=== PATIENT | male | born 1940 | race Caucasian/White ===

== ENCOUNTER 2020-06-02 10:22 | Outpatient (REF) | payer MEDICARE, SELFPAY ==
[2020-06-02 11:44] LABS: Cholesterol 135 mg/dL; HDL Cholesterol 39 mg/dL; LDL Cholesterol Calculated 82 mg/dl; Triglycerides 73 mg/dL
== END 2020-06-02 10:23 | disposition home or self-care (01) ==
LOC: HO.LAB 10:22
PROVIDERS: PCP Internal Medicine Endocrinology, Diabetes & Metabolism; Visit Provider Internal Medicine Endocrinology, Diabetes & Metabolism
DX: E05.90 Thyrotoxicosis, unspecified without thyrotoxic crisis or storm (principal)
CPT/HCPCS: 36415; 80061

== ENCOUNTER 2020-08-24 11:06 | Emergency (ER) | payer OTHER, SELFPAY ==
[2020-08-24] VITALS (11 sets, daily range): BP systolic 139–182; BP diastolic 66–82; PULSE 57–70; RESP 16–18; TEMP 36.6; O2SAT 95–98; BMI 34.4
--- NOTE | ~2020-08-24 | XR_ITS ---
EXAMINATION: XR CHEST CLINICAL INFORMATION: Dizziness, weakness COMPARISON: Portable chest 01/25/2016. TECHNIQUE: Portable upright AP view of the chest was obtained. FINDINGS: There is fine linear scar left lateral base and old appearing faint nodular density versus pleural plaque right fifth anterior intercostal space both similar to prior portable chest 01/25/2016. There is no lobar segmental airspace lesion or effusion. The cardiac, hilar, and mediastinal contours are unremarkable. There is mild dextrocurvature and degenerative changes thoracic spine. XR/XR chest 1V IMPRESSION: No acute intrathoracic disease.
--- NOTE | ~2020-08-24 | CT_ITS ---
EXAMINATION: CT HEAD WITHOUT CONTRAST CLINICAL INFORMATION: Dizziness COMPARISON: CT head 01/25/2016 TECHNIQUE: Contiguous axial imaging was performed from the skull base to vertex without intravenous administration of contrast. Coronal and sagittal reformatted images are performed at the CT scanner This CT examination was performed using dose optimization techniques as appropriate, variously including the following: *Automated exposure control *Adjustment of mA and/or kV according to patient size (this includes techniques or standardized protocols for targeted exams where dose is matched to indication/reason for exam; i.e. extremities or head) *Use of iterative reconstruction technique DLP: 711 mGy-cm FINDINGS: There is no evidence of acute intracranial hemorrhage or territorial infarction. No abnormal mass effect or midline shift is seen. Freire to white matter differentiation is well preserved. No extra-axial fluid collections are identified. There is atrophy with prominence of the ventricles and the sulci and hypodensity of the periventricular white matter due to chronic small vessel ischemic disease. There are vascular calcifications of the internal carotid arteries bilaterally. The osseous structures and soft tissues are normal. The mastoid air cells and visualized portions of the paranasal sinuses are well aerated. CT/CT head/brain wo con IMPRESSION: No acute intracranial pathology.
--- NOTE | ~2020-08-24 | MR_ITS ---
MRI OF THE BRAIN WITHOUT IV CONTRAST INDICATION: Dizziness. COMPARISON: Head CT performed earlier the same day. TECHNIQUE: Multiplanar multisequence MR imaging of the brain was obtained without IV contrast. FINDINGS: There is no hydrocephalus, extra-axial surface collection, or herniation. There is global cerebral volume loss and there is advanced chronic microangiopathy. The major flow voids at the skull base are preserved. A 7 mm broad-based vascular excrescence projecting anteriorly from the left anterior cerebral artery/anterior communicating artery junction is most suggestive of an aneurysm that would be better assessed with a CTA or MRA of the head. There is no acute infarct on diffusion-weighted imaging. There is no intracranial hemorrhage on the gradient recalled echo acquisition. The midline structures are normal. The cerebellar tonsils are normally positioned. The cerebellum and brainstem are normal. The craniocervical junction is normal. Osseous marrow signal intensity is homogenous. The visualized soft tissues are unremarkable. MR/MR head/brain wo con IMPRESSION: - A 7 mm broad-based vascular excrescence projecting anteriorly from the left anterior cerebral artery/anterior communicating artery junction is most suggestive of an aneurysm that would be better assessed with a CTA or MRA of the head. - There are no acute intracranial findings. No acute infarcts. - Global cerebral volume loss and advanced chronic microangiopathy.
[2020-08-24 12:29] LABS: MANUAL DIFF FLAG NO
[2020-08-24 12:30] LABS: Basophils Percent Auto 0.2 % (0-2); Eosinophils Percent Auto 0.4 % (0-4); Hematocrit 43.1 % (42-52); Hemoglobin 15.2 g/dl (14.0-18.0); Imm Gran Abs Auto 0.04 X10*3/uL (0.00-0.03); Imm Gran Pct Auto 0.4 % (0.0-0.4); Lymphocytes Absolute Auto 0.8 X10*3/uL (1.2-4.9); Lymphocytes Percent Auto 9.1 % (20-40); Mean Corpuscular HGB Conc 35.3 g/dl (31.0-36.0); Mean Corpuscular Hemoglobin 32.3 pg (27.0-33.0); Mean Corpuscular Volume 91.5 fL (80-98); Mean Platelet Volume 11.1 fL (9.4-12.4); Monocytes Absolute Auto 0.7 X10*3/uL (0.1-1.2); Monocytes Percent Auto 8.2 % (2-11); Neutrophils Absolute Auto 7.3 X10*3/uL (2.0-8.3); Neutrophils Percent Auto 81.7 % (45-73); Platelet Count 181 X10*3/uL (160-400); Red Blood Count 4.71 X10*6/uL (4.60-5.80); Red Cell Distribution Width 14.4 % (11.0-16.0); White Blood Count 8.9 X10*3/uL (4.8-10.8)
[2020-08-24 13:03] LABS: Anion Gap 14 (12-20); Blood Urea Nitrogen 14 mg/dL (9-16); Calcium 9.2 mg/dL (8.4-10.2); Carbon Dioxide 25 mmol/L (22-29); Chloride 105 mmol/L (96-108); Creatinine Clr Calc Pharmacy 72.8; Estimated Glomerular Filt Rate > 60; Glucose Random 112 mg/dL (60-115); Potassium 3.6 mmol/L (3.3-5.1); Sodium 140 mmol/L (135-145)
[2020-08-24 13:08] LABS: Troponin-I High Sensitivity 10.1 ng/L (<3.5-35.0)
--- NOTE | 2020-08-24 15:27 | ECG_ITS ---
Test Reason : DIZZINESS Blood Pressure : / mmHG Vent. Rate : 064 BPM Atrial Rate : 064 BPM P-R Int : 176 ms QRS Dur : 090 ms QT Int : 484 ms P-R-T Axes : 049 -21 013 degrees QTc Int : 499 ms Sinus rhythm with occasional Premature ventricular complexes Nonspecific ST abnormality Prolonged QT Abnormal ECG When compared with ECG of 25-JAN-2016 00:37, No significant change was found Referred By: Michael Pascal Electronically Signed By:HOLGER HALE
--- NOTE | 2020-08-24 15:28 | PC.NURSE ---
NO NEURO DEFICITS NOTED.
--- NOTE | 2020-08-24 15:32 | ED_ITS ---
HPI - Dizziness General Chief Complaint: Dizziness Stated Complaint: dizziness Time Seen by Provider: 08/24/20 15:18 Source: patient Mode of arrival: wheelchair Limitations: no limitations History of Present Illness HPI Narrative: 80-year-old male with prior medical history that is significant for Graves disease, hypertension and vertigo he presents via triage in a wheelchair with family with report of dizziness for the past 5 days states he has had similar episodes several years back for which she was seen here meclizine helped however this time he has been taking [id number] equivalent meclizine and his dizziness has been a progressively becoming worse over the past 5 days. States there is no chest pain, shortness of breath, headache, neck pain, weight loss or gain, no leg swelling. MD elicited complaint: dizziness Onset (ago): day(s) (5) Timing: gradual onset Severity: severe Description: sense of movement and lightheadedness Context: anxiety History of similar symptoms: Yes Exacerbating factors: nothing Relieving factors: nothing Associated symptoms: denies other symptoms Related Data Previous Rx's Medication Instructions Recorded meclizine 25 mg PO DAILY PRN #14 tab 08/24/20 Allergies Allergy/AdvReac Type Severity Reaction Status Date / Time No Known Allergies Allergy Unverified 01/30/20 17:11 Review of Systems Review of Systems: Constitutional: No Weight loss, No Fever, No Chills, No Night Sweats, No Fatigue, No Malaise ENT/Mouth: No Hearing loss, No Ear Pain, No Nasal Congestion, No Sinus Pain, No Hoarseness, No sore throat, No Rhinorrhea, No Swallowing Difficulty Eyes: No Eye Pain, No Swelling, No Redness, No Foreign Body, No Discharge, No Vision Changes Cardiovascular: No Chest Pain, No SOB, No Dyspnea on Exertion, No Orthopnea, No Edema, No Palpitations Respiratory: No Cough, No Sputum, No Wheezing, No Smoke Exposure, No Dyspnea Gastrointestinal: No Nausea, No Vomiting, No Diarrhea, No Constipation, No abdominal Pain, No Hematochezia, No Melena Genitourinary: No Dysuria, No Urinary Frequency, No Hematuria, No Urinary Incontinence, No Urgency, No Flank Pain, No Urinary Flow Changes, No Hesitancy Musculoskeletal: No joint pain, No Myalgias, No Joint Swelling Skin: No Skin Lesions, No rash Neuro: No Weakness, No Numbness, No Paresthesias, No Loss of Consciousness, + Dizziness, No Headache Psych: + Anxiety/Panic, No Depression, No SI/HI/AH/VH, No Social Issues Heme/Lymph: No Bruising, No Bleeding,No Lymphadenopathy Endocrine: No Polyuria, No Polydipsia, No Temperature Intolerance Yes all other systems are reviewed and are negative ENT: Reports Normal hearing present Neurologic: Reports Normal hearing present [facility] Past Medical History Medical History (Updated 08/24/20 @ 22:39 by Michael Pascal NP) Dizziness Graves disease Hypertension Vertigo Social History Social History Alcohol intake: former Smoking Status: Former smoker Use of substances other than those prescribed or required for medical reasons: No Advance Directives: No Advance Directives Information Provided: Yes Physical Exam Vital Signs: Vital Signs: Last Vital Signs Temp 98 F 08/24/20 12:01 Pulse 65 08/24/20 22:24 Resp 18 08/24/20 22:24 BP 156/79 H 08/24/20 22:24 Pulse Ox 96 08/24/20 22:12 Body Mass Index 34.4 Reviewed Const: General: cooperative and healthy appearing; No acute distress or intoxicated appearing Nutritional Appearance: average body habitus Orientation/consciousness: patient oriented x3 HENMT: Head: Yes normal to inspection Ears: hearing grossly normal b ilaterally Eyes: General: appearance normal, both eyes and all related structures Visual Wang: normal visual wang by confrontation Pupils: Equal, round and reactive pupils present Neck: Neck: Yes normal visual inspection, Yes no meningeal signs, No positive Brudzinski's sign, No positive Kernig's sign and No tender Thyroid: Thyroid normal Chest: Chest palpation & inspection: normal inspection of the chest Resp: Effort & Inspection: normal respiratory effort Auscultation: clear to auscultation bilaterally Cardio: Jugular venous distension: no JVD Rhythm: regular rhythm Heart sounds: S1 normal heart sound present and S2 normal heart sound present GI: Inspection: Yes normal to inspection Palpation (GI): Soft to palpation Percussion: Yes normal to percussion Auscultation: normal bowel sounds : General: Yes no CVA tenderness Back/Spine/Pelvis: Back: no CVA tenderness Skin: General skin exam: no rashes or lesions noted Neuro: General: patient oriented x3, moves all extremities, Normal light touch and pain sensation, no meningeal signs, no focal motor deficits, CN's II-XI intact bilaterally, normal sensation to monofilament, decrease sensation to monofilament, absent sensation to monofilament, deep tendon reflexes 2+ bilaterally and Alonzo Hallpike (Negative) Cranial nerves: Yes CN's II-XII intact bilaterally, Yes Facial sensation intact/muscles of mastication intact, Yes Intact sense of smell present, Yes Equal, round and reactive pupils present, Yes Normal accommodation reflex present, Yes Bilaterally intact EOM present, Yes Nystagmus not present, Yes Normal facial strength present, Yes Midline tongue present, Yes Normal gag reflex present, Yes Symmetric palate elevation present, Yes Normal hearing present, Yes Ability to bilaterally rotate head present and Yes Ability to bilaterally elevate shoulders present Cognition (Neuro): normal cognition Speech: Other speech findings present (Neuro) (Speech normal) Gait exam (Neuro): Normal gait present Motor exam (neuro): 5/5 motor strength present throughout Sensory Exam: Normal double simultaneous stimulation for sensation Extrem: General: Yes normal to inspection Course Reevaluation(s) Reevaluation #1: NIH score 0 Out of tPA window Labs, head CT, orthostatic vital signs Has tried couple doses of meclizine without help does feel anxious he takes lorazepam b.i.d. and has done so for past 6 months after his and ever since then he has been more anxious. Will give him 0.5 of lorazepam and re- evaluate. Reevaluation #2: Declined meclizine as he reports and daughter reports that the read the side effects and caused your attention given his underlying history of prostate. Did request Ativan which was initially given and felt better with this no dizziness at this time. She is out of bed and ambulatory steady gait. CT no findings however given the profound dizziness prior to arrival MRI of the brain was done and showed A 7 mm broad-based vascular excrescence projecting anteriorly from the left anterior cerebral artery/anterior communicating artery junction is most suggestive of an aneurysm that would be better assessed with a CTA or MRA of the head. Case discussed with hospitalist for admission given no intervention neurology to defer I subsequently called [facility] spoke to transfer line and Interventional Neurology Dr. Wadsworth who reviewed the MRI with me and states that this is incidental findings of the aneurysm that this does not require any immediate intervention or transfer that the primary focus should be on the vertigo treatment and have patient follow-up in the office and call the office at [phone]. Patient has remained stable remains without dizziness. Findings were reviewed of the MRI with patient and daughter I did give him pictures and shows the size of the MRI and the importance for the need for follow-up. Given the dizziness I did also offer evaluation by case management and PT for possible STI are however daughter feels that she can follow up better with vestibular therapy doctor on outpatient basis as she has been to 1 before and there is 1 in [place] that she would like to go to. Additionally she will call Dr. Wadsworth tomorrow morning and follow up with the office for further evaluation of the aneurysm and monitoring. He was able to get out of bed and walk to the bathroom without complaints walks with steady gait. Consultations Consultation #1: Hospitalist services [facility] Dr. Love Consultation #2: Case discussed with for [place] [facility] [place] Consultation #3: Education of the findings of the 7 mm aneurysm to the patient and daughter and the importance of monitoring blood pressure closely at home taking his blood pressure medication and close follow-up neurology. MDM - Dizziness Differential Diagnosis Differential diagnosis: Likely benign paroxysmal positional vertigo, orthostatic hypotension, vertebral basilar insufficiency, cerebrovascular accident and transient cerebral ischemia; Unlikely adverse reaction to drug and acute vestibular neuronitis Medical Records Attestation: I reviewed the patient's medical records. Lab Data Attestation: I reviewed the patient's lab results. Result diagrams: 08/24/20 12:17 08/24/20 12:17 Labs: Lab Results 08/24/20 08/24/20 08/24/20 Range/Units 12:17 12:17 12:17 WBC 8.9 (4.8-10.8) X10*3/uL RBC 4.71 (4.60-5.80) X10*6/uL Hgb 15.2 (14.0-18.0) g/dl Hct 43.1 (42-52) % MCV 91.5 (80-98) fL MCH 32.3 (27.0-33.0) pg MCHC 35.3 (31.0-36.0) g/dl RDW 14.4 (11.0-16.0) % Plt Count 181 (160-400) X10*3/uL MPV 11.1 (9.4-12.4) fL Immature Gran % (Auto) 0.4 (0.0-0.4) % Neut % (Auto) 81.7 H (45-73) % Lymph % (Auto) 9.1 L (20-40) % Crosby % (Auto) 8.2 (2-11) % Eos % (Auto) 0.4 (0-4) % Baso % (Auto) 0.2 (0-2) % Lymph # (Auto) 0.8 L (1.2-4.9) X10*3/uL Crosby # (Auto) 0.7 (0.1-1.2) X10*3/uL Eos # (Auto) 0.0 (0.0-0.4) X10*3/uL Baso # (Auto) 0.0 (0.0-0.2) X10*3/uL Abs Immat Gran (auto) 0.04 H (0.00-0.03) X10*3/uL Absolute Neuts (auto) 7.3 (2.0-8.3) X10*3/uL Absolute Nucleated RBC 0.000 (0.0-0.012) X10*3/uL Nucleated RBC % (auto) 0.0 (0.0-0.2) /100WBC PT (10.8-13.0) SEC INR (0.9-1.1) APTT (24.1-38.0) SEC Hold Blue Top Sodium 140 (135-145) mmol/L Potassium 3.6 (3.3-5.1) mmol/L Chloride 105 (96-108) mmol/L Carbon Dioxide 25 (22-29) mmol/L Anion Gap 14 (12-20) BUN 14 (9-16) mg/dL Creatinine 0.88 (0.5-1.4) mg/dL Estim Creat Clear Calc 72.8 Estimated GFR > 60 Random Glucose 112 (60-115) mg/dL Calcium 9.2 (8.4-10.2) mg/dL Magnesium 2.2 (1.6-2.6) mg/dL Total Bilirubin 1.1 H (0.0-1.0) mg/dL Direct Bilirubin 0.4 (0.0-0.5) mg/dL AST 11 (5-37) U/L ALT 12 (0-40) U/L Alkaline Phosphatase 83 (39-117) U/L Troponin I High Sens 10.1 (<3.5-35.0) ng/L B-Natriuretic Peptide 322 H (<100) pg/mL Total Protein 6.0 L (6.5-8.0) g/dL Albumin 4.2 (3.5-5.0) g/dL TSH 0.30 L (0.32-4.0) uIU/mL Free T4 1.10 (0.71-1.85) ng/dL Urine Color Urine Appearance Urine pH (5.0-8.0) Ur Specific [place] (1.005-1.025) Urine Protein (NEG-TRACE) MG/DL Urine Glucose (UA) (NEG) MG/DL Urine Ketones (NEG) MG/DL Urine Blood (NEG) Urine Nitrite (NEG) Ur Leukocyte Esterase (NEG) Urine RBC (0) /HPF Urine WBC (0-4) /HPF Ur Squamous Epith Cells /LPF Urine Bacteria /LPF COVID-19 (ANKUR) (Negative) COVID-19 Clin Com 08/24/20 08/24/20 08/24/20 Range/Units 12:17 12:17 16:00 WBC (4.8-10.8) X10*3/uL RBC (4.60-5.80) X10*6/uL Hgb (14.0-18.0) g/dl Hct (42-52) % MCV (80-98) fL MCH (27.0-33.0) pg MCHC (31.0-36.0) g/dl RDW (11.0-16.0) % Plt Count (160-400) X10*3/uL MPV (9.4-12.4) fL Immature Gran % (Auto) (0.0-0.4) % Neut % (Auto) (45-73) % Lymph % (Auto) (20-40) % Crosby % (Auto) (2-11) % Eos % (Auto) (0-4) % Baso % (Auto) (0-2) % Lymph # (Auto) (1.2-4.9) X10*3/uL Crosby # (Auto) (0.1-1.2) X10*3/uL Eos # (Auto) (0.0-0.4) X10*3/uL Baso # (Auto) (0.0-0.2) X10*3/uL Abs Immat Gran (auto) (0.00-0.03) X10*3/uL Absolute Neuts (auto) (2.0-8.3) X10*3/uL Absolute Nucleated RBC (0.0-0.012) X10*3/uL Nucleated RBC % (auto) (0.0-0.2) /100WBC PT 12.3 (10.8-13.0) SEC INR 1.0 (0.9-1.1) APTT 35.1 (24.1-38.0) SEC Hold Blue Top SEE NOTE Sodium (135-145) mmol/L Potassium (3.3-5.1) mmol/L Chloride (96-108) mmol/L Carbon Dioxide (22-29) mmol/L Anion Gap (12-20) BUN (9-16) mg/dL Creatinine (0.5-1.4) mg/dL Estim Creat Clear Calc Estimated GFR Random Glucose (60-115) mg/dL Calcium (8.4-10.2) mg/dL Magnesium (1.6-2.6) mg/dL Total Bilirubin (0.0-1.0) mg/dL Direct Bilirubin (0.0-0.5) mg/dL AST (5-37) U/L ALT (0-40) U/L Alkaline Phosphatase (39-117) U/L Troponin I High Sens (<3.5-35.0) ng/L B-Natriuretic Peptide Cancelled (<100) pg/mL Total Protein (6.5-8.0) g/dL Albumin (3.5-5.0) g/dL TSH (0.32-4.0) uIU/mL Free T4 (0.71-1.85) ng/dL Urine Color Urine Appearance Urine pH (5.0-8.0) Ur Specific [place] (1.005-1.025) Urine Protein (NEG-TRACE) MG/DL Urine Glucose (UA) (NEG) MG/DL Urine Ketones (NEG) MG/DL Urine Blood (NEG) Urine Nitrite (NEG) Ur Leukocyte Esterase (NEG) Urine RBC (0) /HPF Urine WBC (0-4) /HPF Ur Squamous Epith Cells /LPF Urine Bacteria /LPF COVID-19 (ANKUR) Negative (Negative) COVID-19 Clin Com See Note 08/24/20 08/24/20 Range/Units 16:00 20:26 WBC (4.8-10.8) X10*3/uL RBC (4.60-5.80) X10*6/uL Hgb (14.0-18.0) g/dl Hct (42-52) % MCV (80-98) fL MCH (27.0-33.0) pg MCHC (31.0-36.0) g/dl RDW (11.0-16.0) % Plt Count (160-400) X10*3/uL MPV (9.4-12.4) fL Immature Gran % (Auto) (0.0-0.4) % Neut % (Auto) (45-73) % Lymph % (Auto) (20-40) % Crosby % (Auto) (2-11) % Eos % (Auto) (0-4) % Baso % (Auto) (0-2) % Lymph # (Auto) (1.2-4.9) X10*3/uL Crosby # (Auto) (0.1-1.2) X10*3/uL Eos # (Auto) (0.0-0.4) X10*3/uL Baso # (Auto) (0.0-0.2) X10*3/uL Abs Immat Gran (auto) (0.00-0.03) X10*3/uL Absolute Neuts (auto) (2.0-8.3) X10*3/uL Absolute Nucleated RBC (0.0-0.012) X10*3/uL Nucleated RBC % (auto) (0.0-0.2) /100WBC PT (10.8-13.0) SEC INR (0.9-1.1) APTT (24.1-38.0) SEC Hold Blue Top Sodium (135-145) mmol/L Potassium (3.3-5.1) mmol/L Chloride (96-108) mmol/L Carbon Dioxide (22-29) mmol/L Anion Gap (12-20) BUN (9-16) mg/dL Creatinine (0.5-1.4) mg/dL Estim Creat Clear Calc Estimated GFR Random Glucose (60-115) mg/dL Calcium (8.4-10.2) mg/dL Magnesium (1.6-2.6) mg/dL Total Bilirubin (0.0-1.0) mg/dL Direct Bilirubin (0.0-0.5) mg/dL AST (5-37) U/L ALT (0-40) U/L Alkaline Phosphatase (39-117) U/L Troponin I High Sens 9.8 (<3.5-35.0) ng/L B-Natriuretic Peptide (<100) pg/mL Total Protein (6.5-8.0) g/dL Albumin (3.5-5.0) g/dL TSH (0.32-4.0) uIU/mL Free T4 (0.71-1.85) ng/dL Urine Color G[place] Urine Appearance CLEAR Urine pH 5.5 (5.0-8.0) Ur Specific [place] 1.025 (1.005-1.025) Urine Protein NEG (NEG-TRACE) MG/DL Urine Glucose (UA) NEG (NEG) MG/DL Urine Ketones NEG (NEG) MG/DL Urine Blood NEG (NEG) Urine Nitrite NEG (NEG) Ur Leukocyte Esterase 1+ H (NEG) Urine RBC 5-9 H (0) /HPF Urine WBC 0 (0-4) /HPF Ur Squamous Epith Cells TRACE /LPF Urine Bacteria NONE /LPF COVID-19 (ANKUR) (Negative) COVID-19 Clin Com Imaging Data Brain MRI : Radiologist's impression: Albert Tristan N 80 M 1940 [facility] [place] [id number] Resonance ReportSigned Patient: Albert Tristan NMR#: [id number]: 1940cct:[id number]/Sex: 80 / MADM Date: 08/24/20Loc: [address] Dr: Ordering Physician: Michael Pascal NP Date of Service: 08/24/20 Procedure(s): MR head/brain wo con Accession Number(s): [id number] cc: Michael Pascal BILLING CUSTOMER SERVICE REPRESENTATIVE~ MRI OF THE BRAIN WITHOUT IV CONTRAST INDICATION: Dizziness. COMPARISON: Head CT performed earlier the same day. TECHNIQUE: Multiplanar multisequence MR imaging of the brain was obtained without IV contrast. FINDINGS: There is no hydrocephalus, extra-axial surface collection, or herniation. There is global cerebral volume loss and there is advanced chronic microangiopathy. The major flow voids at the skull base are preserved. A 7 mm broad-based vascular excrescence projecting anteriorly from the left anterior cerebral artery/anterior communicating artery junction is most suggestive of an aneurysm that would be better assessed with a CTA or MRA of the head. There is no acute infarct on diffusion-weighted imaging. There is no intracranial hemorrhage on the gradient recalled echo acquisition. The midline structures are normal. The cerebellar tonsils are normally positioned. The cerebellum and brainstem are normal. The craniocervical junction is normal. Osseous marrow signal intensity is homogenous. The visualized soft tissues are unremarkable. MR/MR head/brain wo con IMPRESSION: - A 7 mm broad-based vascular excrescence projecting anteriorly from the left anterior cerebral artery/anterior communicating artery junction is most suggestive of an aneurysm that would be better assessed with a CTA or MRA of the head. - There are no acute intracranial findings. No acute infarcts. - Global cerebral volume loss and advanced chronic microangiopathy. Dictated By:BINDU AQUINO MDSigned By:<Electronically signed by BINDU AQUINO MD in OV>08/24/202041 DD/ 1826TD/TT: Wood Experimental Mechanic: RADHA Chest x-ray: Radiologist's impression: Albert Tristan N 80 M [address] [id number] ReportSigned Patient: Albert Tristan [facility]#: [id number]: 1940cct:M [id number]/Sex: 80 / MADM Date: 08/24/20Loc: HOCharmaineEDAttending Dr: Ordering Physician: Michael Pascal NP Date of Service: 08/24/20 Procedure(s): XR chest 1V Accession Number(s): [id number] cc: Michael Pascal BILLING CUSTOMER SERVICE REPRESENTATIVE~ EXAMINATION: XR CHEST CLINICAL INFORMATION: Dizziness, weakness COMPARISON: Portable chest 01/25/2016. TECHNIQUE: Portable upright AP view of the chest was obtained. FINDINGS: There is fine linear scar left lateral base and old appearing faint nodular density versus pleural plaque right fifth anterior intercostal space both similar to prior portable chest 01/25/2016. There is no lobar segmental airspace lesion or effusion. The cardiac, hilar, and mediastinal contours are unremarkable. There is mild dextrocurvature and degenerative changes thoracic spine. XR/XR chest 1V IMPRESSION: No acute intrathoracic disease. Dictated By:FRANKI ROWAN MDSigned By:<Electronically signed by FRANKI ROWAN MD in OV>08/24/20 1605 DD/ 1532TD/TT: Wood Experimental Mechanic: ALMA CT scan - head: Radiologist's impression: [address] [id number] Scan ReportSigned Patient: Albert Tristan [facility]#: [id number]: 1940cct:[id number]/Sex: 80 / MADM Date: 08/24/20Loc: HO.EDAttending Dr: Ordering Physician: Michael Pascal NP Date of Service: 08/24/20 Procedure(s): CT head/brain wo con Accession Number(s): [id number] cc: Michael Pascal BILLING CUSTOMER SERVICE REPRESENTATIVE~ EXAMINATION: CT HEAD WITHOUT CONTRAST CLINICAL INFORMATION: Dizziness COMPARISON: CT head 01/25/2016 TECHNIQUE: Contiguous axial imaging was performed from the skull base to vertex without intravenous administration of contrast. Coronal and sagittal reformatted images are performed at the CT scanner This CT examination was performed using dose optimization techniques as appropriate, variously including the following: *Automated exposure control *Adjustment of mA and/or kV according to patient size (this includes techniques or standardized protocols for targeted exams where dose is matched to indication/reason for exam; i.e. extremities or head) *Use of iterative reconstruction technique DLP: 711 mGy-cm FINDINGS: There is no evidence of acute intracranial hemorrhage or territorial infarction. No abnormal mass effect or midline shift is seen. Freire to white matter differentiation is well preserved. No extra-axial fluid collections are identified. There is atrophy with prominence of the ventricles and the sulci and hypodensity of the periventricular white matter due to chronic small vessel ischemic disease. There are vascular calcifications of the internal carotid arteries bilaterally. The osseous structures and soft tissues are normal. The mastoid air cells and visualized portions of the paranasal sinuses are well aerated. CT/CT head/brain wo con IMPRESSION: No acute intracranial pathology. Dictated By:ELIOT HEREDIA MDSigned By:<Electronically signed by ELIOT HEREDIA MD in OV>08/24/20 1805 DD/ 1533TD/TT: Wood Experimental Mechanic: YASIR ECG Data Interpretation: Sinus rhythm with occasional Premature ventricular complexes Rate [address] abnormality Prolonged QT Abnormal ECG When compared with ECG of 25-JAN-2016 00:37 No significant change was found Discharge Plan Discharge Clinical Impression: Vertigo, Aneurysm of anterior cerebral artery Patient Disposition: Home, Self-Care Instructions: Vertigo (ED) Additional Instructions: Please follow-up with neurology at [facility] Dr. Wadsworth Follow-up with primary care doctor Return if any concerns or worsening symptoms Taking meclizine as prescribed Thank you Prescriptions: New meclizine 25 mg tablet 25 mg PO DAILY PRN (Reason: dizziness) Qty: 14 RF: 0 Referrals: ED Physician,Generic [Emergency Provider] - 2 days (Dr. Danielito Wadsworth [facility] [address], [address] [place] [address] Get Directions [phone] A 7 mm broad-based vascular excrescence projecting anteriorly from the left anterior cerebral artery/anterior communicating artery junction is most suggestive of an aneurysm )
--- NOTE | 2020-08-24 15:33 | PC.NURSE ---
orthostatic BP vitals: laying- 164/75 BP right arm/ HR: 66 BPM Sitting- Bp right arm- 158/73/ HR:65 BPM standing: BP right arm-162/78 / HR: 70BPM
[2020-08-24 15:52] LABS: Prothrombin Time 12.3 SEC (10.8-13.0)
[2020-08-24 15:54] LABS: Partial Thromboplastin Time 35.1 SEC (24.1-38.0)
[2020-08-24 16:00] LABS: Alanine Aminotransferase 12 U/L (0-40); Albumin Level 4.2 g/dL (3.5-5.0); Alkaline Phosphatase 83 U/L (39-117); Aspartate Amino Transferase 11 U/L (5-37); Bilirubin Direct 0.4 mg/dL (0.0-0.5); Bilirubin Total 1.1 mg/dL (0.0-1.0); Magnesium 2.2 mg/dL (1.6-2.6)
[2020-08-24 16:07] LABS: B Type Natriuretic Peptide 322 pg/mL (<100)
[2020-08-24] MEDS: 0.9 % Sodium Chloride 500 ML IV (16:13)
[2020-08-24 16:27] LABS: Glucose Urine UA NEG (NEG); Leukocyte Esterase Urine 1+ (NEG); Nitrite Urine NEG (NEG); PH 5.5 (5.0-8.0); Specific Gravity - Urine 1.025 (1.005-1.025); UACC Culture Trigger YES; Urine Blood NEG (NEG); Urine Ketones NEG (NEG); Urine Protein NEG (NEG-TRACE)
[2020-08-24 16:29] LABS: Appearance Urine CLEAR; Color Urine AMBER
[2020-08-24 16:40] LABS: IDNOW Serial# 08D9AD1C
[2020-08-24 16:41] LABS: COVID-19 Test Negative (Negative)
[2020-08-24 17:03] LABS: Squamous Epithelial Cell Urine TRACE /LPF; UACC CULT YES; WBC Urine 0 /HPF (0-4)
--- NOTE | 2020-08-24 18:56 | PC.NURSE ---
stood to urinate without dizziness. daughter remains at bedside. aware of plan for MRI. still is NPO thought isn't pleased about it.
[2020-08-24] MEDS: LORazepam 0.5 MG TABLET PO (19:15)
--- NOTE | 2020-08-24 19:22 | PC.NURSE ---
Report received from LUCIANA Ornelas. Pt medicated with Ativan PO. 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 Escorted to MRI with staff. Pt's daughter at the bedside.
[2020-08-24 21:05] LABS: Troponin-I High Sensitivity 9.8 ng/L (<3.5-35.0)
[2020-08-24] MEDS: Labetalol HCL 100 MG/20 ML VIAL 10 MG IVPUSH (21:54)
--- NOTE | 2020-08-24 23:15 | PC.NURSE ---
Based on MRI incidental findings, plan was to admit the patient or transfer patient for 7mm aneurysm. However, patient and patient's daughter wish to go home instead. Patient stated I've had a hernia for 20 years, so I'll probably be fine with my 'brain bubble' too . STANLEY Pascal explained risks associated with aneurysm and refusing admission/transfer. Pt and daughter verbalized understanding, and are requesting to follow up with PCP, find vestibular rehab , and outpatient neurosurgeon . Pt ambulates with steady gait in ED, denies dizziness at this time. To be discharged home with referrals.
[2020-08-25 07:32] LABS: Triiodothyronine T3 Free 2.9 pg/mL (2.3-4.2)
== END 2020-08-24 23:28 | disposition home or self-care (01) ==
PROVIDERS: Nurse Practitioner Primary Care; Emergency Provider Emergency Medicine; PCP Internal Medicine Endocrinology, Diabetes & Metabolism
DX: R42 Dizziness and giddiness (principal); I67.1 Cerebral aneurysm, nonruptured; I49.3 Ventricular premature depolarization; F41.9 Anxiety disorder, unspecified; Z20.822 Contact with and (suspected) exposure to COVID-19; I10 Essential (primary) hypertension; E05.00 Thyrotoxicosis with diffuse goiter without thyrotoxic crisis or storm; Z79.899 Other long term (current) drug therapy
CPT/HCPCS: 36415; 70450; 70551; 71045; 80048; 80076; 81001; 83735; 83880; 84439; 84443; 84481; 84484; 85025; 85610; 85730; 87086; 87635; 93005; 96361; 96374; 99284; 99285

== ENCOUNTER 2022-02-16 08:01 | Emergency (ER) | payer OTHER, SELFPAY ==
[2022-02-16] VITALS (7 sets, daily range): BP systolic 134–167; BP diastolic 70–81; PULSE 65–77; RESP 14–19; TEMP 36.6–36.9; O2SAT 95–98; BMI 25.8
--- NOTE | ~2022-02-16 | MR_ITS ---
EXAMINATION: MR BRAIN WITHOUT CONTRAST CLINICAL INFORMATION: Dizziness. Question posterior cerebellar stroke. COMPARISON: MRI dated 08/24/2020. TECHNIQUE: Multiplanar, multisequence imaging of the brain was performed without contrast. FINDINGS: No diffusion abnormalities are identified to suggest an acute infarct. No hydrocephalus evident. No mass effect or midline shift is seen. Moderate diffuse parenchymal volume loss and chronic white matter microangiopathy again evident with concordant ex vacuo dilatation of the ventricles. No extra-axial fluid collections are seen. The brainstem and cerebellum are normal. 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 The gradient refocused acquisition demonstrates no pathologic magnetic susceptibility artifact to indicate underlying acute or chronic blood products. The craniovertebral junction, marrow signal, and midline structures are normal. The major intracranial flow voids at the level of the [place] are preserved. 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 The dural venous sinus flow voids are maintained. The mastoid air cells and paranasal sinuses are well aerated. MR/MR head/brain wo con IMPRESSION: No acute intracranial process. Relatively stable moderate diffuse parenchymal volume loss and moderate chronic white matter microangiopathy. 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 A nonemergent CT angiogram or MRA of the head could be obtained for further evaluation. Recommend neurosurgical or neurointerventional radiology consultation to guide further management and follow-up. Imaging findings reported to LORIE Goodman at 5:45 PM on 02/16/2022.
--- NOTE | ~2022-02-16 | CT_ITS ---
EXAMINATION: CT HEAD WITHOUT CONTRAST CLINICAL INFORMATION: Dizziness since Monday COMPARISON: Brain MRI and head CT 08/24/2020 TECHNIQUE: Contiguous axial imaging was performed from the skull base to vertex without intravenous administration of contrast. This CT examination was performed using dose optimization techniques as appropriate, variously including the following: *Automated exposure control *Adjustment of mA and/or kV according to patient size (this includes techniques or standardized protocols for targeted exams where dose is matched to indication/reason for exam; i.e. extremities or head) *Use of iterative reconstruction technique DLP: 768 mGy-cm FINDINGS: There is no evidence of acute intracranial hemorrhage or territorial infarction. No abnormal mass effect or midline shift is appreciated. Freire-white differentiation is well preserved. No extra-axial fluid collections. The ventricular system and cortical sulci are prominent, consistent with age-appropriate volume loss. There are areas of low density in the periventricular and subcortical white matter, most consistent with sequelae of microvascular ischemic change. 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 The osseous structures and soft tissues are normal. There are calcifications of the cavernous internal carotid arteries. The visualized paranasal sinuses and mastoid air cells are well aerated. CT/CT head/brain wo IV con IMPRESSION: Chronic microvascular ischemic changes with no CT evidence of acute intracranial abnormality.
--- NOTE | 2022-02-16 08:57 | ECG_ITS ---
Test Reason : dizziness Blood Pressure : / mmHG Vent. Rate : 060 BPM Atrial Rate : 060 BPM P-R Int : 184 ms QRS Dur : 084 ms QT Int : 448 ms P-R-T Axes : 058 -18 -20 degrees QTc Int : 448 ms Normal sinus rhythm with sinus arrhythmia Minimal voltage criteria for LVH, may be normal variant ( R in aVL ) Nonspecific ST and T wave abnormality Abnormal ECG When compared with ECG of 24-AUG-2020 15:31, Premature ventricular complexes are no longer Present Nonspecific T wave abnormality now evident in Anterolateral leads Referred By: Harpal Goodman Electronically Signed By:SIDNEY BUSTILLO
--- NOTE | 2022-02-16 09:22 | ED.GENADULT ---
HPI - General Adult General Chief complaint: Dizziness Stated complaint: veritgo Time Seen by Provider: 02/16/22 08:44 Source: patient Mode of arrival: ambulatory Limitations: no limitations History of Present Illness HPI narrative: 81-year-old male with history of high blood pressure, stable brain aneurysm and tinnitus presents to the ED for dizziness since Monday. Patient states he 1st felt dizzy while he was in bed on Monday morning and had to crawl to the bathroom. Patient states since then when he ambulates he has to put his hand on the wall or sometimes crawl. Patient denies any headache, chest pain, shortness of breath, fever, chills, recent head trauma. Patient states and describes dizziness as lightheadedness. Patient at baseline usually ambulates without any walker or cane. Daughter states patient has baseline ambulation which is kind of leaning to the right due to chronic bad right hip. Daughter states today patient had like a shuffle gait so he would not fall. Related Data Previous Rx's Medication Instructions Recorded meclizine 25 mg tablet 25 mg PO DAILY PRN dizziness #14 08/24/20 tabs cefuroxime axetil 250 mg tablet 250 mg PO Q12H 7 days #14 tabs 02/16/22 Allergies Allergy/AdvReac Type Severity Reaction Status Date / Time No Known Allergies Allergy Unverified 01/30/20 17:11 Review of Systems Review of Systems: Yes all other systems are reviewed and are negative [facility] Past Medical History Medical History (Updated 02/17/22 @ 00:04 by Background Dadaljit) Dizziness Graves disease Hypertension Vertigo Social History Social History Alcohol intake: former Advance Directives: Yes Advance Directives Information Provided: Yes Advance Directives on File: No Physical Exam ED Vital Signs: Vital Signs - 24 hr 02/16/22 08:04 02/16/22 11:57 02/16/22 12:01 Temperature 98 F 98.5 F Pulse Rate 68 65 73 Respiratory Rate 19 14 Blood Pressure 167/78 H 144/70 H 148/72 H Pulse Oximetry 98 98 Oxygen Delivery Method Room Air Room Air 02/16/22 11:58 02/16/22 11:59 02/16/22 14:00 Temperature 98.4 F Pulse Rate 68 72 77 Respiratory Rate 18 Blood Pressure 148/72 H 147/75 H 134/81 Pulse Oximetry 95 Oxygen Delivery Method Room Air 02/16/22 16:00 Temperature 98.4 F Pulse Rate 74 Respiratory Rate 15 Blood Pressure 144/78 H Pulse Oximetry 95 Oxygen Delivery Method Room Air BMI result Body Mass Index 25.8 Const General: cooperative, healthy appearing, comfortable, no acute distress, well developed, alert, awake and Physically active [facility] Head: Yes normal to inspection, Yes No palpable skull fracture present, Yes normocephalic, Yes atraumatic and No abrasion Ears: hearing grossly normal bilaterally, external ears normal, TM's normal bilaterally, EAC's normal, mastoids normal and no periauricular adenopathy Eyes General: appearance normal, both eyes and all related structures Neck Neck: Yes normal visual inspection, Yes full ROM, Yes no lymphadenopathy, Yes no meningeal signs, Yes trachea midline, Yes supple, No anterior neck swelling and No tender Chest Chest palpation & inspection: normal inspection of the chest and normal palpation of entire chest wall Resp Effort & Inspection: normal respiratory effort and able to speak in complete sentences Cardio Jugular venous distension: no JVD Heart sounds: S1 normal heart sound present and S2 normal heart sound present GI Inspection: Yes normal to inspection and No abdominal wall ecchymosis Palpation (GI): Soft to palpation, not firm, nontender, no guarding and not rigid General: No CVA tenderness and Yes no CVA tenderness Back/Spine/Pelvis Back: no CVA tenderness, No CVA tenderness and No back tenderness Skin General skin exam: no rashes or lesions noted and elasticity normal Neuro Other: Negative facial droop. Negative slurred speech. All extremities equal strength 5+. Negative pronator drift. Rapid head movement intact. General: no meningeal signs Extrem General: Yes normal to inspection and Yes full ROM NIH Stroke Scale Internal: Initial- Upon Arrival Level of Consciousness: Alert Level of Consciousness Questions: Answers both questions correctly Level of Consciousness Commands: Performs both tasks correctly Best Gaze: Normal Visual: No visual loss Facial Palsy: Normal Motor Arm (Right): No drift Motor Arm (Left): No drift Motor Leg (Right): No drift Motor Leg (Left): No drift Limb Ataxia: Absent Sensory: Normal Best Language: No aphasia Dysarthia: Normal Extinction and Inattention: No abnormality Score: 0 Course Course Course Narrative: EKG labs head CT ordered. Covid ordered Reevaluation(s) Reevaluation #1: EKG negative STEMI. First troponin negative. Head CT scan negative for any bleed or signs of stroke. Electrolytes are normal. UA negative for UTI. Upon re-evaluation patient states he feels better. Negative Romberg test. Patient walked around the ER on his own with baseline gait as per daughter. Patient feels like his steps or back to normal. Pending 2nd troponin and re-evaluation. Pending orthostatics. Daughter and patient states he has history of vertigo takes meclizine at home. Discussion 1 had in regards to patient follow-up with ENT. Time: 11:54 Reevaluation #2: Went to re-evaluate patient. Patient states he feels better until he starts walking. Once he starts walking he feel dizzy. Re-evaluation negative Romberg. Once again patient has his normal gait leanin to the right due to hip issues. Not suspecting stroke. Negative for any nystagmus. Daughter was worried some and wanted MRI although there no indication. He states dizziness have been occurring for a long time and wanted MRI. MRI ordered for rule out posterior stroke although very unlikely. Patient was given Valium to help with dizziness Time: 14:00 Reevaluation #3: Patient states feel better after receiving Valium. MRI results came back negative for stroke or brain bleed. MRI results shows the same aneurysm from last year. Patient and daughter was informed that he will need follow-up with [facility] surgery. He will be given copy of images to follow up with primary care provider. It also recommended follow-up with ENT specialist for patient's dizziness with tinnitus. Patient to informed to be taking meclizine. Patient discharged with cefuroxime. Time: 17:42 Medical Decision Making [facility] Narrative Medical decision making narrative: Mild UTI. Dizziness Lab Data Result diagrams: 02/16/22 09:46 02/16/22 09:46 Labs: Lab Results 02/16/22 02/16/22 02/16/22 Range/Units 09:46 09:46 09:46 WBC 9.6 (4.8-10.8) X10*3/uL RBC 4.67 (4.60-5.80) X10*6/uL Hgb 15.2 (14.0-18.0) g/dl Hct 42.0 (42.0-52.0) % MCV 89.9 (80.0-98.0) fL MCH 32.5 (27.0-33.0) pg MCHC 36.2 H (31.0-36.0) g/dl RDW 14.0 (11.0-16.0) % Plt Count 160 (160-400) X10*3/uL MPV 10.7 (9.4-12.4) fL Immature Gran % (Auto) 0.5 H (0.0-0.4) % Neut % (Auto) 83.8 H (45-73) % Lymph % (Auto) 6.9 L (20-40) % [place] % (Auto) 8.0 (2-11) % Eos % (Auto) 0.6 (0-4) % Baso % (Auto) 0.2 (0-2) % Lymph # (Auto) 0.7 L (1.2-4.9) X10*3/uL [place] # (Auto) 0.8 (0.1-1.2) X10*3/uL Eos # (Auto) 0.1 (0.0-0.4) X10*3/uL Baso # (Auto) 0.0 (0.0-0.2) X10*3/uL Abs Immat Gran (auto) 0.05 H (0.00-0.03) X10*3/uL Absolute Neuts (auto) 8.0 (2.0-8.3) x10*3/uL Absolute Nucleated RBC 0.000 (0.0-0.012) X10*3/uL Nucleated RBC % (auto) 0.0 (0.0-0.2) /100WBC PT 11.8 (10.0-13.1) SEC INR 1.0 (0.9-1.1) APTT 30.9 (26.0-36.4) SEC Sodium 141 (135-145) mmol/L Potassium 3.6 (3.3-5.1) mmol/L Chloride 107 (96-108) mmol/L Carbon Dioxide 23 (22-29) mmol/L Anion Gap 15 (12-20) BUN 15 (9-16) mg/dL Creatinine 0.99 (0.5-1.4) mg/dL Estim Creat Clear Calc 54.6 Estimated GFR > 60 Random Glucose 118 H (60-115) mg/dL Calcium 8.6 D (8.4-10.2) mg/dL Magnesium 2.0 (1.6-2.6) mg/dL Total Bilirubin 1.4 H (0.0-1.0) mg/dL AST 14 (5-37) U/L ALT 10 (0-40) U/L Alkaline Phosphatase 75 (39-117) U/L Troponin I High Sens (<3.5-35.0) ng/L Total Protein 6.1 L (6.5-8.0) g/dL Albumin 4.2 (3.5-5.0) g/dL Urine Color Urine Appearance Urine pH (5.0-9.0) Ur Specific [place] (1.005-1.025) Urine Protein (Neg-Trace) mg/dL Urine Glucose (UA) (Negative) mg/dL Urine Ketones (Negative) mg/dL Urine Blood (Negative) Urine Nitrite (Negative) Ur Leukocyte Esterase (Negative) Urine RBC (0-2) /HPF Urine WBC (0-5) /HPF Ur Squamous Epith Cells (0-2) /HPF Urine Bacteria (None Seen) Hyaline Casts (0-2) /LPF COVID-19 (ANKUR) (Negative) COVID-19 Clin Com 02/16/22 02/16/22 02/16/22 Range/Units 09:46 09:47 09:48 WBC (4.8-10.8) X10*3/uL RBC (4.60-5.80) X10*6/uL Hgb (14.0-18.0) g/dl Hct (42.0-52.0) % MCV (80.0-98.0) fL MCH (27.0-33.0) pg MCHC (31.0-36.0) g/dl RDW (11.0-16.0) % Plt Count (160-400) X10*3/uL MPV (9.4-12.4) fL Immature Gran % (Auto) (0.0-0.4) % Neut % (Auto) (45-73) % Lymph % (Auto) (20-40) % [place] % (Auto) (2-11) % Eos % (Auto) (0-4) % Baso % (Auto) (0-2) % Lymph # (Auto) (1.2-4.9) X10*3/uL [place] # (Auto) (0.1-1.2) X10*3/uL Eos # (Auto) (0.0-0.4) X10*3/uL Baso # (Auto) (0.0-0.2) X10*3/uL Abs Immat Gran (auto) (0.00-0.03) X10*3/uL Absolute Neuts (auto) (2.0-8.3) x10*3/uL Absolute Nucleated RBC (0.0-0.012) X10*3/uL Nucleated RBC % (auto) (0.0-0.2) /100WBC PT (10.0-13.1) SEC INR (0.9-1.1) APTT (26.0-36.4) SEC Sodium (135-145) mmol/L Potassium (3.3-5.1) mmol/L Chloride (96-108) mmol/L Carbon Dioxide (22-29) mmol/L Anion Gap (12-20) BUN (9-16) mg/dL Creatinine (0.5-1.4) mg/dL Estim Creat Clear Calc Estimated GFR Random Glucose (60-115) mg/dL Calcium (8.4-10.2) mg/dL Magnesium (1.6-2.6) mg/dL Total Bilirubin (0.0-1.0) mg/dL AST (5-37) U/L ALT (0-40) U/L Alkaline Phosphatase (39-117) U/L Troponin I High Sens 6.9 (<3.5-35.0) ng/L Total Protein (6.5-8.0) g/dL Albumin (3.5-5.0) g/dL Urine Color Yellow Urine Appearance Clear Urine pH 6.5 (5.0-9.0) Ur Specific [place] 1.010 (1.005-1.025) Urine Protein Negative (Neg-Trace) mg/dL Urine Glucose (UA) Negative (Negative) mg/dL Urine Ketones Negative (Negative) mg/dL Urine Blood Negative (Negative) Urine Nitrite Negative (Negative) Ur Leukocyte Esterase Moderate (2+) H (Negative) Urine RBC 0-2 (0-2) /HPF Urine WBC 6-10 H (0-5) /HPF Ur Squamous Epith Cells 0-2 (0-2) /HPF Urine Bacteria None Seen (None Seen) Hyaline Casts 0-2 (0-2) /LPF COVID-19 (ANKUR) Negative (Negative) COVID-19 Clin Com See Note 02/16/22 Range/Units 12:35 WBC (4.8-10.8) X10*3/uL RBC (4.60-5.80) X10*6/uL Hgb (14.0-18.0) g/dl Hct (42.0-52.0) % MCV (80.0-98.0) fL MCH (27.0-33.0) pg MCHC (31.0-36.0) g/dl RDW (11.0-16.0) % Plt Count (160-400) X10*3/uL MPV (9.4-12.4) fL Immature Gran % (Auto) (0.0-0.4) % Neut % (Auto) (45-73) % Lymph % (Auto) (20-40) % [place] % (Auto) (2-11) % Eos % (Auto) (0-4) % Baso % (Auto) (0-2) % Lymph # (Auto) (1.2-4.9) X10*3/uL [place] # (Auto) (0.1-1.2) X10*3/uL Eos # (Auto) (0.0-0.4) X10*3/uL Baso # (Auto) (0.0-0.2) X10*3/uL Abs Immat Gran (auto) (0.00-0.03) X10*3/uL Absolute Neuts (auto) (2.0-8.3) x10*3/uL Absolute Nucleated RBC (0.0-0.012) X10*3/uL Nucleated RBC % (auto) (0.0-0.2) /100WBC PT (10.0-13.1) SEC INR (0.9-1.1) APTT (26.0-36.4) SEC Sodium (135-145) mmol/L Potassium (3.3-5.1) mmol/L Chloride (96-108) mmol/L Carbon Dioxide (22-29) mmol/L Anion Gap (12-20) BUN (9-16) mg/dL Creatinine (0.5-1.4) mg/dL Estim Creat Clear Calc Estimated GFR Random Glucose (60-115) mg/dL Calcium (8.4-10.2) mg/dL Magnesium (1.6-2.6) mg/dL Total Bilirubin (0.0-1.0) mg/dL AST (5-37) U/L ALT (0-40) U/L Alkaline Phosphatase (39-117) U/L Troponin I High Sens 9.7 (<3.5-35.0) ng/L Total Protein (6.5-8.0) g/dL Albumin (3.5-5.0) g/dL Urine Color Urine Appearance Urine pH (5.0-9.0) Ur Specific [place] (1.005-1.025) Urine Protein (Neg-Trace) mg/dL Urine Glucose (UA) (Negative) mg/dL Urine Ketones (Negative) mg/dL Urine Blood (Negative) Urine Nitrite (Negative) Ur Leukocyte Esterase (Negative) Urine RBC (0-2) /HPF Urine WBC (0-5) /HPF Ur Squamous Epith Cells (0-2) /HPF Urine Bacteria (None Seen) Hyaline Casts (0-2) /LPF COVID-19 (ANKUR) (Negative) COVID-19 Clin Com ECG Data Interpretation: Normal sinus rhythm. Ventricular rate 60. ER interval 184. QRS 84. QTC 448. Negative STEMI Discharge Plan Discharge Clinical Impression: Vertigo, Dizziness, Acute UTI Patient Disposition: Home, Self-Care Instructions: Urinary Tract Infection in Men (ED), Vertigo (ED), Dizziness (ED) Additional Instructions: Head CT and brain MRI came back negative for brain bleed or stroke. EKG and blood work came back negative for heart attack. Your electrolytes are normal. Your urine shows small infection. You will be discharged with antibiotics. Please follow up with PCP and ENT. 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 Return to the ED for any facial droop, slurred speech, loss of vision, paralysis of extremities, severe dizziness, headache, chest pain, shortness of breath, nausea, vomiting, inability to walk, passing out, or any other concerning symptoms. Continue taking meclizine as prescribed. [facility] , [address], [place] [address] Prescriptions: New cefuroxime axetil 250 mg tablet 250 mg PO Q12H 7 Days Qty: 14 0RF No Action meclizine 25 mg tablet 25 mg PO DAILY PRN (Reason: dizziness) Qty: 14 0RF Interventions: ED Discharge Assessment Last Done: 02/16/22 18:35 Discharge Date/Time: 02/16/22 18:40 Print Language: Lithuanian
--- OUTSIDE RECORDS SUMMARY | 2022-02-16 09:30 | XMS_ITS | Encounter Summary ---
:1940 Author Organization Department [facility] Address [address] [place] [address] Support Name Relationship Address Phone ADAM EATON Unavailable [address] [place] [address] ADAM EATON Unavailable [address] [place] [address] Insurance Providers: All historical and current Section Date Range: From patient's date of to the date document was created.This section includes the names of all active insurance providers for the patient. Insurance Type of Plan Start of End of Group Member Insurance Policy P atient's Provider Coverage Name Policy Policy Number ID Provider's Calles's Relationship Coverage Coverage Telephone Name to Policy Number Calles [place] May 15, [id number] [phone] Ally BUSBY PATIENT [facility] (WNR) [facility] (WNR) [id number] GEORGE Selected Encounter This section includes the information on record at [place] for the Encounter. Date/Time Encounter Type Encounter Description Reason Provider Source Aug 24, 2021 10:09 Outpatient Encounter TELEPHONE/OPTOMETRY AM [facility] Encounter Template Text not used by [facility] Plan of Treatment: Future Appointments (+ 6 months) and Future Tests (+/- 45 days) The Plan of Treatment section includes future care activities for the patient from all [place] treatmentfacilities. This section includes future appointments and future orders which are active, pending orscheduled.Future Appointments This section includes appointments that were scheduled to occur 6 months from the date of the Encounter, up to a maximum of 20 appointments. The data comes from all [place] treatment facilities. Appointment Date/Time Appointment Type Appointment Facili ty Name Oct 19, 2021 03:00 PM [facility] Social History: Smoking Status (Most current) and Tobacco Use (All prior to encounter date) This section includes the most current, and the historical, smoking and tobacco-related health factors from the [place] facility where the Encounter took place.Current Smoking Status This section includes the most current smoking, or tobacco-related health factor, from the [place] facility where the Encounter took place. Date/Time Current Smoking Status Comment Facility Jul 22, 2021 03:00 PM VA-TOBACCO FORMER USER [facility] [place] [facility] Tobacco Use History This section includes a history of the smoking, or tobacco- related health factors, that were collected on or before the date of the Encounter. The data comes from the [place] facility where the Encounter took place. Date/Time Smoking Status/Tobacco Use Comment [facility] Jul 22, 2021 03:00 PM VA-TOBACCO QUIT 15 YRS OR [facility] [place] [facility] Dec 09, 2019 01:46 PM VA-TOBACCO FORMER USER [facility] [place] [facility] Dec 09, 2019 01:46 PM VA-TOBACCO QUIT 15 YRS OR [facility] [place] [facility] October 03, 2018 12:57 PM VA-TOBACCO FORMER USER [facility] [place] [facility] October 03, 2018 12:57 PM VA-TOBACCO QUIT 15 YRS OR [facility] [place] [facility] Dec 01, 2017 02:59 PM QUIT TOBACCO USE > 7 YEARS [facility] [place] [facility] Nov 22, 2016 01:57 PM QUIT TOBACCO USE > 7 YEARS [facility] [place] [facility] September 23, 2015 12:55 PM QUIT TOBACCO USE > 7 YEARS [facility] [place] [facility] . [facility] Apr 20, 2009 10:40 AM QUIT TOBACCO USE > 7 YEARS [facility] [place] [facility] Advance Directives: All historical and current Section Date Range: From patient's date of to the date document was created. This section includes ALL of a patient's completed or amended [place] Advance and Rescinded Directives. The entries below indicate that a directive exists for the patient, but an actual copy is not included with this document. The data comes from all [place] facilities. Date Advance Directives Provider Source Apr 29, 2009 ADVANCE DIRECTIVE FRANKIE HU [facility] Encounter Notes: All associated encounter notes This section contains the clinical notes associated to the Encounter. Date/Time Encounter Note(s) Provider Source Aug 24, 2021 10:09 AM ADMINISTRATIVE NOTE: DARREN TRIPLETT [facility] LOCAL TITLE: ADMINISTRATIVE NOTE [facility] TITLE: ADMINISTRATIVE NOTE DATE OF NOTE: AUG 24, 2021@10:09 ENTRY DATE: AUG 24, 2021@10:09:21 AUTHOR: DARREN TRIPLETT EXP COSIGNER: URGENCY: STATUS: COMPLETED [place] called and CXP optometry appt an d did not want to RS will call back if needed- RTC's dispositioned /brayden/ DARREN TRIPLETT [employer] Signed: 08/24/2021 10:11
--- OUTSIDE RECORDS SUMMARY | 2022-02-16 09:30 | XMS_ITS | Continuity of Care Document ---
:1940 Author Organization [facility] Care Team Providers Name Role Phone [facility] Unavailable Unavailable Problems Combined list of problems from Department of Defense and Veterans Affairs facilities. It does not include entries that were removed or entered in error. Problem Status Onset Problem Date of Comments Source Date Type Resolution Aneurysm, Aorta, Active Condition Oct 23, [facility] Abdominal 2013 Entered WSTRN By: LEX MANZANARES [facility] Max ERAZO Comment: Ultrasound 10/16/13 2.5cm sent shalonda scanning. Anxiety disorder Active Condition [facility] [place] [facility] Cholelithiasis Active Condition [facility] [place] [facility] Gastroesophageal Active Condition Aug 20, [facility] Reflux Disorder 2009 Entered W STRN By: ABHIJIT SHANE [facility] LLIAM F Comment: EGD with dilation 1995. Gout * (ICD-9-CM Active Condition [facility] 274.9) [facility] [place] [facility] Hearing loss * Active Condition [facility] (ICD-9-CM 389.9) [facility] [place] [facility] Hypertension * Active Condition [facility] (ICD-9-CM 401.9) [facility] [place] [facility] Hypertrophy (Benign) Active Condition [facility] of Prostate without [facility] Urinary obstruction [place] [facility] other [place] [facility] Pancreatic Neoplasms Active Condition [facility] (ICD-9-CM 239.7) [facility] [place] [facility] Thyroid eye disease Active Condition [facility] (SNOMED CT [id number]) [facility] [place] [facility] Diagnosis: ICD-10-CM Active Diagnosis [facility] Z23 Encounter for WS TRN immunizationwith [place] Provider Comments: H CS Encounter for immunization (ICD-10-CM Z23.) Diagnosis: ICD-10-CM Active Diagnosis [facility] H61.23 Impacted [place] cerumen [place] bilateralwith [facility] Provider Comments: Impacted Cerumen,Bilateral Diagnosis: ICD-10-CM Active Diagnosis [facility] 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 Medications provided include 1) outpatient medications from the last 15 months, and 2) patient-reported medications. Medication Details Route Status Patient Prescription Prescription Last Ordering Order Source Instructions Expires Number Dispense Provider Date Date ACYCLOVIR TAKE 1 ORAL ACTIVE ALVA,SUZA VA 200MG CAP CAPSULE NNE O 2008 CNTRL BY MOUTH WSTRN EVERY [place] [facility] NEEDED HCS ALLOPURINOL TAKE ONE ORAL ACTIVE ALVA,SUZA VA 300MG TAB TABLET NNE O 2008 CNTR[facility] BY MOUTH [facility] [place] [facility] AMLODIPINE TAKE ONE ORAL ACTIVE VANWAGNER 12/01/ VA BESYLATE TABLET ,2017 CNTRL 5MG TAB BY MOUTH F [facility]STRN ONCE [place] DAILY [facility] H[facility] LISINOPRIL TAKE ORAL ACTIVE VANWAGNER 07/22/ VA TAB 20MG QAM ,2021 CNTRL AND 10MG F WSTRN QPM. BY [place] MOUTH QD SET[facility] HCS LORAZEPAM TAKE ONE ORAL ACTIVE VANWAGNER 07/08/ V A 0.5MG TAB TABLET ,2020 CNTRL BY MOUTH F [facility] TWICE [place] [facility] OMEPRAZOLE TAKE 1 ORAL ACTIVE VANWAGNER 07/22/ VA 20MG CAP,EC CAPSULE ,2021 CNT RL BY MOUTH F [facility] TWICE [place] [facility] Immunizations Combined list of available immunizations from the Department of Defense and Veterans Affairs facilities. Immunization Series Date Administered Site Reaction Lot CVX Drug St atus Comments Source Given By Number Code Paintings Conservator ZOSTER 2 complet VA RECOMBINANT 2021 ed [facility] [place] [facility] [facility] ZOSTER 1 complet [facility] RECOMBINANT 2021 ed [facility] [place] [facility] [facility] INFLUENZA, complet [facility] UNSPECIFIED 2021 ed [facility] COVID-19 3 complet VA (PFIZER), 2020 ed CNTR L MRNA, LNP-S, W STRN PF, 30 [place] MCG/0.3 ML SET S DOSE HCS COVID-19 2 complet VA (PFIZER), 2020 ed CNTR L MRNA, LNP-S, W STRN PF, 30 [place] MCG/0.3 ML SET S DOSE HCS COVID-19 1 complet VA (PFIZER), 2020 ed CNTR L MRNA, LNP-S, W STRN PF, 30 [place] MCG/0.3 ML SET S DOSE HCS INFLUENZA, complet [facility] UNSPECIFIED 2019 ed [facility] INFLUENZA, complet VA SEASONAL, 2019 ed CNTR L INJECTABLE [facility] [place] [facility] INFLUENZA, complet [facility] SEASONAL, 2018 ed [facility] L INJECTABLE [facility] [place] [facility] FLU,3 YRS complet [facility] V A (HISTORICAL) 2015 ed C [facility]L [facility] [place] [facility] [facility] DTAP, complet [facility] UNSPECIFIED 2015 ed CN TRL FORMULATION [facility] [place] [facility] [facility] PNEUMOCOCCAL complet VA CONJUGATE PCV 2016 ed [facility]TRL 13 [facility] [place] [facility] ZOSTER complet VA (HISTORICAL) 2013 ed C [facility]L [facility] [place] [facility] FLU,3 YRS complet . V A (HISTORICAL) 2012 ed C [facility] [place] [facility] FLU,3 YRS complet V A (HISTORICAL) 2012 ed C [facility] [place] [facility] FLU,3 YRS complet stated VA (HISTORICAL) 2010 ed C [facility] [place] [facility] FLU,3 YRS complet V A (HISTORICAL) 2009 ed C [facility] [place] [facility] FLU,3 YRS complet V A (HISTORICAL) 2008 ed C [facility]L [facility] [place] [facility] PNEUMOCOCCAL, 109 complet VA UNSPECIFIED 2005 ed CN TRL FORMULATION [facility] [place] [facility] TD(ADULT) 139 complet V A UNSPECIFIED 2005 ed CN TRL FORMULATION [facility] [place] [facility] TDAP 115 complet VA 2005 ed [facility] [place] [facility] [facility] Vital Signs Combined list of inpatient and outpatient Vital Signs from Department of Defense and Veterans Affairs, ranging from 12 months to all on record, depending upon the facility. Vital Sign Value Date Comments Source SYSTOLIC BLOOD PRESSURE 136 10/19/2021 VA C NTRL [facility] 15:06:17 [place] [facility] DIASTOLIC BLOOD PRESSURE 70 10/19/2021 [facility] 15:06:17 [place] [facility] PULSE OXIMETRY 98% 10/19/2021 [facility] 15:06:17 [place] [facility] WEIGHT 215 10/19/2021 [facility] 15:06:[facility] [place] [facility] BMI 36kg/m2 10/19/2021 [facility] 15:06:17 [place] [facility] TEMPERATURE 97.4 10/19/2021 [facility] 15:06:17 [place] [facility] PULSE 63 10/19/2021 [facility] 15:06:17 [place] [facility] RESPIRATION 16 10/19/2021 [facility] 15:06:17 [place] [facility] SYSTOLIC BLOOD PRESSURE 132 07/22/2021 VA C NTRL [facility] 14:55:27 [place] [facility] DIASTOLIC BLOOD PRESSURE 80 07/22/2021 [facility] CN[facility] 14:55:27 [place] [facility] PULSE OXIMETRY 98% 07/22/2021 [facility] CN[facility] N 14:55:27 [place] [facility] WEIGHT 214 07/22/2021 [facility] 14:55:27 [place] [facility] BMI 36kg/m2 07/22/2021 VA CN[facility] 14:55:27 [place] [facility] PAIN 0 07/22/2021 [facility] 14:55:27 [place] [facility] TEMPERATURE 97 07/22/2021 [facility] 14:55:27 [place] [facility] PULSE 74 07/22/2021 [facility] CN[facility] 14:55:27 [place] [facility] RESPIRATION 18 07/22/2021 [facility] 14:55:27 [place] [facility] Encounters Combined list of: 1) Encounters from Department of Veterans Affairs facilities going back up to the last 18 months. 2) Encounters from the Department of Defense facilities going back up to 280 months. Location Location Encounter Encounter Reason Attending ADM DC Stat us Disposition Source Details Type Number For Provider Date Date Visit Outpatient [id number] 08/26 [facility] [id number] [facility] [place] [facility] [facility] [id number] 03/09 [facility] Encounter [id number] [facility] [place] [facility] [facility] [id number] 03/09 [facility] Encounter [id number] [facility] [place] [facility] [facility] [id number] 03/15 [facility] Encounter [id number] [facility] [place] [facility] [facility] [id number] 06/04 [facility] Encounter 0[facility]CS. MINUT E 074 CLINIC OFFICE O/P [id number] Diagnos MACARIO, 07/22 [facility] EST LOW [id number] is: MC F CNT RL 20-29 MIN ICD-10- WSTRN CM [place] H61.23 SETS Impacte HCS d cerumen , bilater al
with Provide r Comment s: Impacte d Cerumen , Bilater al DETERMINE [id number] Diagnos CRESCENCIO, 07/29 VA REFRACTIVE [id number] is: LARRY J /2021 CNTRL STATE ICD-10- WSTRN CM [place] H25.13 SETS Age-rel HCS ated nuclear catarac t, bilater al
with Provide r Comment s: Age-Rel ated Nuclear Catarac t, Bilater al CPTR OPHTH [id number] Diagnos CRESCENCIO, 07/29 VA DX IMG [id number] is: LARRY J /2021 CNTR L POST SEGMT ICD-10- WSTRN CM [place] H35.322 SETS 1 HCS Exdtve age-rel mclr degn, left eye, with actv chrdl neovas< br/>wit h Provide r Comment s: Exudati ve ARMD,Le ft Eye w/ Active Choroid al Neovasc ulariza tion Outpatient [id number] 07/29 [facility] Encounter [id number] [facility] [place] [facility] Outpatient [id number] 07/30 [facility] Encounter 1. [facility]L [place] [facility] OFFICE O/P [id number] Diagnos EDD-DUG 08/02 VA EST [id number] is: BUCKY L /2021 CNTR L MINIMAL ICD-10- WSTRN PROB CM [place] H61.23 SETS Impacte HCS d cerumen , bilater al
with Provide r Comment s: Impacte d Cerumen ,Bilate ral Outpatient [id number] 08/24 [facility] Encounter 1. [facility] [place] [facility] Outpatient [id number] 08/24 [facility] Encounter 1. [facility] [place] [facility] OFFICE O/P [id number] Diagnos VANWAGNER, 10/19 VA EST [id number] is: MC F /2021 CNTRL MINIMAL ICD-10- WSTRN PROB CM Z23 [place] Encount SETS er for HCS immuniz ation<b r/>with Provide r Comment s: Encount er for immuniz ation (ICD-10 -CM Z23.) Social History Combined list of available smoking, tobacco, and other social history from Department of Defense andVeterans Affairs facilities. Social History Type Response Date Comment Source Tobacco smoking VA-TOBACCO FORMER 07/22/2021 VA CNTR L [facility] status [facility] [place] [facility] History of tobacco VA-TOBACCO QUIT 15 07/22/2021 [facility] use YRS OR MORE [place] [facility] History of tobacco VA-TOBACCO FORMER 12/09/2019 [place] C NTRL [place] use USER [facility] History of tobacco [place]-TO[place]ACCO QUIT 15 10/03/2018 [place] CNTR[place] use YRS OR MORE [facility] History of tobacco QUIT TOBACCO USE > 7 12/01/2017 V A CNTRL WSTRN use YEARS AGO [facility] History of tobacco QUIT TOBACCO USE > 7 11/22/2016 V A CNTRL WSTRN use YEARS AGO [facility] History of tobacco QUIT TOBACCO USE > 7 09/23/2015 . V A CNTRL WSTRN use YEARS AGO [facility] History of tobacco QUIT TOBACCO USE > 7 04/20/2009 V A CNTRL WSTRN use YEARS AGO [facility] Advance Directives List of completed, amended, or rescinded Advance Directives on record at Department of [facility] facilities. An actual copy of the Directive is not included. Date Advance Directive Provider Source 04/29/2009 ADVANCE DIRECTIVE FRANKIE HU [place] [facility]
--- OUTSIDE RECORDS SUMMARY | 2022-02-16 09:31 | XMS_ITS ---
:1940 Author Organization [facility] Address [address] [place] [address] Support Name Relationship Address Phone ADAM EATON Unavailable [address] [place] [address] ADAM EATON Unavailable [address] [place] [address] Insurance Providers: All historical and current Section Date Range: From patient's date of to the date document was created.This section includes the names of all active insurance providers for the patient. Insurance Type of Plan Start of End of Group Member Insurance Policy P atient's Provider Coverage Name Policy Policy Number ID Provider's Calles's Relationship Coverage Coverage Telephone Name to Policy Number Calles [facility] MEDICARE [facility] May 15, [id number] [phone] Ally BUSBY PATIENT [facility] (WNR) [facility] (WNR) 2017 [id number] AYMOND Selected Encounter This section includes the information on record at [place] for the Encounter. Date/Time Encounter Type Encounter Description Reason Provider Source Aug 24, 2021 10:10 Outpatient Encounter ADMIN PAT ACTIVTIES AM (MASNONCT) IHE Encounter Template Text not used by [place] Plan of Treatment: Future Appointments (+ 6 months) and Future Tests (+/- 45 days) The Plan of Treatment section includes future care activities for the patient from all [place] treatmentfacilities. This section includes future appointments and future orders which are active, pending orscheduled.Future Appointments This section includes appointments that were scheduled to occur 6 months from the date of the Encounter, up to a maximum of 20 appointments. The data comes from all [place] treatment facilities. Appointment Date/Time Appointment Type Appointment Facili ty Name Oct 19, 2021 03:00 PM AMBULATORY - MEDICINE [facility] Wilian [place] [facility] Social History: Smoking Status (Most current) and Tobacco Use (All prior to encounter date) This section includes the most current, and the historical, smoking and tobacco-related health factors from the [place] facility where the Encounter took place.Current Smoking Status This section includes the most current smoking, or tobacco-related health factor, from the [place] facility where the Encounter took place. Date/Time Current Smoking Status Comment Facility Jul 22, 2021 03:00 PM VA-TOBACCO QUIT 15 YRS OR [facility] CN[facility]L [place] [facility] Tobacco Use History This section includes a history of the smoking, or tobacco- related health factors, that were collected on or before the date of the Encounter. The data comes from the [place] facility where the Encounter took place. Date/Time Smoking Status/Tobacco Use Comment [facility] Jul 22, 2021 03:00 PM VA-TOBACCO QUIT 15 YRS OR VA CN[facility]L [place] [facility] Dec 09, 2019 01:46 PM VA-TOBACCO FORMER USER [facility] CN[facility]L [place] [facility] Dec 09, 2019 01:46 PM VA-TOBACCO QUIT 15 YRS OR VA CN[facility]L [place] [facility] October 03, 2018 12:57 PM VA-TOBACCO FORMER USER VA CN[facility]L [place] [facility] October 03, 2018 12:57 PM VA-TOBACCO QUIT 15 YRS OR VA CN[facility]L [place] [facility] Dec 01, 2017 02:59 PM QUIT TOBACCO USE > 7 YEARS [place] [facility]L [place]N [place] [facility] Nov 22, 2016 01:57 PM QUIT TOBACCO USE > 7 YEARS VA [facility]L [place] [facility] September 23, 2015 12:55 PM QUIT TOBACCO USE > 7 YEARS VA CN[facility]L [place]N [place] . [facility] Apr 20, 2009 10:40 AM QUIT TOBACCO USE > 7 YEARS [facility]L [place] [facility] Advance Directives: All historical and current Section Date Range: From patient's date of to the date document was created. This section includes ALL of a patient's completed or amended [place] Advance and Rescinded Directives. The entries below indicate that a directive exists for the patient, but an actual copy is not included with this document. The data comes from all [place] facilities. Date Advance Directives Provider Source Apr 29, 2009 ADVANCE DIRECTIVE FRANKIE HU [facility] WST RN [facility] Encounter Notes: All associated encounter notes This section contains the clinical notes associated to the Encounter. Date/Time Encounter Note(s) Provider Source Aug 24, 2021 10:10 [facility]LEPHONE [facility]NCOUN[facility]: VISN 1 CCC ACTION REQUIRED RONNIE Stoll [facility] STANDARD TITLE: TELEPHONE ENCOUNTER NOTE DATE OF NOTE: AUG 24, 2021@10:10:16 ENTRY DATE: AUG 24, 2021@10:11:38 AUTHOR: COY SILVERIO [facility] EXP COSIGNER: URGENCY: STATUS: COMPLETED VISN 1 CCC ACTION REQUIRED Has ADDENDA The patient, LAYO EATON ([id number]) called the call center. Contact Type of call: SCHEDULING. Caller Response: ADM CALL RESOLVED Caller Area: [facility] Provider Info: LOCAL - [facility] (001) PACT: NO PACT 3 (Focus: Primary Care Only) Primary Care Provider: MC SORTO Wrecking Car Driver: FLORECITA GALLAGHER PHONE:[phone] Clinical Associate: JOSIAS STYLES NE:[phone] Skill Labor: NIKITA PATEL Clinical POC: Wrecking Car Driver ANGELO GALLAGHER PHONE:[phone] Administrative POC: Skill Labor NIKITA PATEL Author: COY SILVERIO Comments: called would like to be scheduled for CO VID 2nd Booster shot. Please contact Evaluation/Management Code: HC PRO PHONE CALL [phone]- [phone] MIN ([phone]). Starting at: 08/24/2021 @ 10:10:16 AM Ending at: 08/24/2021 @ 10:11:04 AM Length: 0 minutes. Chief Complaint: Not applicable to call. Class Code: Other specified counseling. Patient's Email Address: /brayden/ COY SILVERIO Signed: 08/24/2021 10:11 Receipt Acknowledged By: 08/24/2021 11:44 /brayden/ Florecita Gallagher RN RN 08/24/2021 11:17 /es/ JOSIAS STYLES LPN JOSIAS STYLES LPN 08/24/2021 ADDENDUM STATUS: COMPLETED Forward to PACT 3 RN /brayden/ Florecita Gallagher RN RN Signed: 08/24/2021 11:14 Receipt Acknowledged By: 08/24/2021 11:28 /brayden/ TYE NARAYAN RN REGISTERED NURSE 08/24/2021 ADDENDUM STATUS: COMPLETED please schedule /es/ TYE NARAYAN RN REGISTERED NURSE Signed: 08/24/2021 11:28 Receipt Acknowledged By: 08/24/2021 12:50 /es/ NIKITA PATEL ADVANCED AIR SUPPORT CONTROL OFFICER 08/24/2021 ADDENDUM STATUS: COMPLETED AMSA called and spoke w/ Soha. Happy would like Orbster vaccine. Happy will obtain Booster #2 at an outside fac ility as [facility] has Moderna Vaccine. /brayden/ NIKITA PATEL ADVANCED AIR SUPPORT CONTROL OFFICER Signed: 08/24/2021 12:53
--- OUTSIDE RECORDS SUMMARY | 2022-02-16 09:31 | XMS_ITS | Encounter Summary ---
:1940 Author Organization [facility] Address [address] [place] [address] Support Name Relationship Address Phone ADAM EATON Unavailable [address] [place] [address] ADAM EATON Unavailable [address] [place] [address] Insurance Providers: All historical and current Section Date Range: From patient's date of to the date document was created.This section includes the names of all active insurance providers for the patient. Insurance Type of Plan Start of End of Group Member Insurance Policy P atient's Provider Coverage Name Policy Policy Number ID Provider's Calles's Relationship Coverage Coverage Telephone Name to Policy Number Calles [facility] MEDICARE [facility] May 15, [id number] [phone] Ally BUSBY PATIENT M[facility] (WNR) ADVANTAGE (WNR) 2017 [id number] GEORGE Selected Encounter This section includes the information on record at [place] for the Encounter. Date/Time Encounter Type Encounter Description Reason Provider Source Jul 29, 2021 04:20 Outpatient Encounter OPTOMETRY PM IHE Encounter Template Text not used by [place] Plan of Treatment: Future Appointments (+ 6 months) and Future Tests (+/- 45 days) The Plan of Treatment section includes future care activities for the patient from all [place] treatmentfacilities. This section includes future appointments and future orders which are active, pending orscheduled.Future Appointments This section includes appointments that were scheduled to occur 6 months from the date of the Encounter, up to a maximum of 20 appointments. The data comes from all [place] treatment facilities. Appointment Date/Time Appointment Type Appointment Facili ty Name Jul 30, 2021 02:30 PM AMBULATORY - MEDICINE [facility] Aug 02, 2021 02:00 PM AMBULATORY MEDICINE [facility] Oct 19, 2021 03:00 PM AMBULATORY - MEDICINE [place] [facility] [facility] Social History: Smoking Status (Most current) and Tobacco Use (All prior to encounter date) This section includes the most current, and the historical, smoking and tobacco-related health factors from the [place] facility where the Encounter took place.Current Smoking Status This section includes the most current smoking, or tobacco-related health factor, from the [place] facility where the Encounter took place. Date/Time Current Smoking Status Comment Facility Jul 22, 2021 03:00 PM VA-TOBACCO FORMER USER [place] CNTRL [place] [facility] Tobacco Use History This section includes a history of the smoking, or tobacco- related health factors, that were collected on or before the date of the Encounter. The data comes from the [place] facility where the Encounter took place. Date/Time Smoking Status/Tobacco Use Comment [facility] Jul 22, 2021 03:00 PM VA-TOBACCO QUIT 15 YRS OR VA CN[facility]L [place] [facility] Dec 09, 2019 01:46 PM VA-TOBACCO FORMER USER [place] CN[facility]L [place] [facility] Dec 09, 2019 01:46 PM VA-TOBACCO QUIT 15 YRS OR VA CN[facility]L [place] MORE [facility] October 03, 2018 12:57 PM VA-TOBACCO FORMER USER [facility] CN[facility]L [place] [facility] October 03, 2018 12:57 PM VA-TOBACCO QUIT 15 YRS OR VA CN[facility]L [place] MORE [facility] Dec 01, 2017 02:59 PM QUIT TOBACCO USE > 7 YEARS [place] CNTRL [place]N [place] [facility] Nov 22, 2016 01:57 PM QUIT TOBACCO USE > 7 YEARS [facility] CN[facility]L [place] [facility] September 23, 2015 12:55 PM QUIT TOBACCO USE > 7 YEARS VA CNTRL [place]N [place] AGO . [facility] Apr 20, 2009 10:40 AM QUIT TOBACCO USE > 7 YEARS [place] CN[facility]L [place]N [place] [facility] Advance Directives: All historical and current Section Date Range: From patient's date of to the date document was created. This section includes ALL of a patient's completed or amended [place] Advance and Rescinded Directives. The entries below indicate that a directive exists for the patient, but an actual copy is not included with this document. The data comes from all [place] facilities. Date Advance Directives Provider Source Apr 29, 2009 ADVANCE DIRECTIVE FRANKIE HU [place] [facility] WST [facility] Encounter Notes: All associated encounter notes This section contains the clinical notes associated to the Encounter. Date/Time Encounter Note(s) Provider Source Jul 29, 2021 04:20 PM OPTOMETRY NOTE: LAISHA ESQUEDARL W STRN LOCAL TITLE: OPTOMETRY NOTE [facility] STANDARD TITLE: OPTOMETRY NOTE DATE OF NOTE: JUL 29, 2021@16:20 ENTRY DATE: JUL 29, 2021@16:20:07 AUTHOR: LAISHA ESQUEDA EXP COSIGNER: URGENCY: STATUS: COMPLETED bif clear LAYO EATON 0497 RX INFORMATION OD -5.50 -0.75 X119 Add:+2.50 Pzm:0.00 Dir: Prz2 :0.00 Dir2: OS -5.75 0.00 X Add:+2.50 Pzm:0.00 Dir: Prz2:0.0 0 Dir2: FITTING INFORMATION FPD:58.5 NPD:55.5 Dupage:R: L: SEG HT:R:20 L:20 Tint:None Shade:None VA Billable Items FRAME: FX10 COFFEE [id number] Right Lens: 1.67 BIFOCAL FT28 1.67 HIGH INDEX Left Lens: 1.67 BIFOCAL FT28 1.67 HIGH INDEX KLEAR ANTI-REFLECTIVE COATING dvo sun main LAYO EATON 0497 RX INFORMATION OD -5.50 -0.75 X119 Add:+2.50 Pzm:0.00 Dir: Prz2 :0.00 Dir2: OS -5.75 0.00 X Add:+2.50 Pzm:0.00 Dir: Prz2:0.0 0 Dir2: FITTING INFORMATION FPD:58.5 NPD:55.5 Dupage:R: L: SEG HT:R: L: Tint:DERAS Shade:3 VA Billable Items FRAME: MOSCOW GUNMETAL [id number] Right Lens: 1.67 SINGLE VISION 1.67 HIGH INDEX Left Lens: 1.67 SINGLE VISION 1.67 HIGH INDEX SOLID STEPHT /brayden/ LAISHA ESQUEDA ADULT EDUCATION PROFESSIONAL Signed: 07/29/2021 16:20 Receipt Acknowledged By: * AWAITING SIGNATURE * JOSEPH SIEGEL * AWAITING SIGNATURE * INOCENTE CANDELARIA
--- OUTSIDE RECORDS SUMMARY | 2022-02-16 09:31 | XMS_ITS | Encounter Summary ---
:1940 Author Organization [facility] Address [address] [place] [id number] Support Name Relationship Address Phone ADAM EATON Unavailable [address] [place] [address] ADAM EATON Unavailable [address] [place] [address] Insurance Providers: All historical and current Section [...] Policy Number Calles [facility] MEDICARE [facility] May 15, [id number] [phone] Ally BUSBY PATIENT MCR (WNR) ADVANTAGE (WNR) [id number] GEORGE Selected Encounter This section includes the information on record at [facility] for the [facility]counter. Date/Time Encounter Type Encounter Reason Provider Source Description Jul 29, 2021 DETERMINE OPTOMETRY ICD-10-CM CRESCENCIOBRISSA 02:00 PM REFRACTIVE STATE H25.13 GABRIELA J Age-related nuclear cataract, bilateral with Provider Comments: Age-Related Nuclear Cataract, Bilateral IHE Encounter Template Text not used by [facility] Assessments - Encounter Diagnoses This section includes the primary and secondary diagnoses documented for the Encounter. 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 This section includes future appointments and future orders which are active, pending orscheduled.Future Appointments This section includes appointments that were scheduled to occur 6 months from the date of the Encounter, up to a maximum of 20 appointments. The data comes from all [place] treatment facilities. Appointment Date/Time Appointment Type Appointment Facili ty Name Jul 30, 2021 02:30 PM [facility] Aug 02, 2021 02:00 PM [facility] [place] [facility] Oct 19, 2021 03:00 PM [facility] Social History: Smoking Status (Most current) and Tobacco Use (All prior to encounter date) This section includes the most current, and the historical, smoking and tobacco-related health factors from the [place] facility where the Encounter took place.Current Smoking Status This section includes the most current smoking, or tobacco-related health factor, from the [place] facility where the Encounter took place. Date/Time Current Smoking Status Comment Facility Jul 22, 2021 03:00 PM VA-TOBACCO FORMER USER [facility] [place] [facility] Tobacco Use History This section includes a history of the smoking, or tobacco- related health factors, that were collected on or before the date of the Encounter. The data comes from the [place] facility where the Encounter took place. Date/Time Smoking Status/Tobacco Use Comment Facil [facility] Jul 22, 2021 03:00 PM VA-TOBACCO QUIT 15 YRS OR [facility] [place] [facility] Dec 09, 2019 01:46 PM VA-TOBACCO FORMER USER [facility] [place] [facility] Dec 09, 2019 01:46 PM VA-TOBACCO QUIT 15 YRS OR [facility] [place] [facility] October 03, 2018 12:57 PM VA-TOBACCO FORMER USER [facility] [place] [facility] October 03, 2018 12:57 PM VA-TOBACCO QUIT 15 YRS [facility] [place] [facility] Dec 01, 2017 02:59 PM QUIT TOBACCO USE > 7 YEARS [facility] [place] [facility] Nov 22, 2016 01:57 PM QUIT TOBACCO USE > 7 YEARS [facility] [place] [facility] September 23, 2015 12:55 PM QUIT TOBACCO USE > 7 YEARS [facility] [place] [facility] Apr 20, 2009 10:40 AM QUIT [facility] [place] Advance Directives: All historical and current Section Date Range: From patient's date of to the date document was created. This section includes ALL of a patient's completed or amended [place] Advance and Rescinded Directives. The entries below indicate that a directive exists for the patient, but an actual copy is not included with this document. The data comes from all [place] facilities. Date Advance Directives Provider Source Apr 29, 2009 ADVANCE DIRECTIVE [facility] Encounter Notes: All associated encounter notes This section contains the clinical notes associated to the Encounter. Date/Time Encounter Note(s) Provider Source Jul 29, 2021 01:57 OPTOMETRY NOTE: LARRY SEAMAN [facility] LOCAL TITLE: OPTOMETRY NOTE Manuel TORRES [facility] STANDARD TITLE: OPTOMETRY NOTE DATE OF NOTE: JUL 29, 2021@13:57 ENTRY DATE: JUL 29, 2021@13:57:46 AUTHOR: NEHEMIAH STANTON EXP COSIGNER: BRISSA SEAMAN URGENCY: STATUS: COMPLETED OPTOMETRY NOTE Has ADDENDA Active problems - Computerized Problem List is t he source for the followin. 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 Cholelithiasis 4. Aneurysm, Aorta, Abdominal 5. Hypertrophy (Benign) of Prostate without Uri nary obstruction and other lower 6. Pancreatic Neoplasms 7. Gastroesophageal Reflux Disorder 8. Hypertension * 9. Gout * 10. Hearing loss * Active Outpatient Medications (including Supplie s): Active Non-VA Medications Status 1) Non-VA ACYCLOVIR 200MG CAP 200MG BY MOUTH ALESHIA DAY ACTIVE NEEDED 2) Non-VA ALLOPURINOL 300MG TAB 300MG BY MOUTH E VERY DAY ACTIVE 3) Non-VA AMLODIPINE BESYLATE 5MG TAB 5MG BY ERIN TH ONCE ACTIVE DAILY 4) Non-VA LISINOPRIL TAB 20MG QAM AND 10MG QPM. BY MOUTH ACTIVE EVERY DAY 5) Non-VA LORAZEPAM 0.5MG TAB 0.5MG BY MOUTH TWI CE DAILY ACTIVE 6) Non-VA OMEPRAZOLE 20MG CAP,EC 20MG BY MOUTH T WICE ACTIVE DAILY Allergies: Patient has answered NKA All medications including those prescribed by ou [facility]'s, community providers, and all OTC meds were reviewed and reconciled wi th patient to the best of their abilities. This 81 year old MALE is seen today for CEE. Chief Complaint:Pt reports h e has not seen Dr. Salazar(eye care provider) since the beginning of [facility] because the doctor left the [facility] practice. He is followed by a thyroid specialist for his thyroid disease. Pt r eports dryness which he uses OTC artificial tears. Denies pain on eye movement, restriction of eye movement, sudden loss of vision, flashes of light, and eye pain OU. Pt would like to get new glasses today, bifocals. OHx (+/-)If Yes, explain: 1. Thyroid eye disease OU, was scheduled for C[facility] treatment but it was deferred since his thyroid status changed 2. Refractive error/presbyopia OU 3. cataracts (-) Pain: (-) GREGORY: (+) Diplopia: binocular diplopia sometimes for f ew seconds (-) Flashes: (-) Floaters: (-) Amaurosis Fugax/Tia's: (-) Eye Injury: (-) Eye Surgery: (-) TBI FOHx: (-) Glaucoma/ARMD/Blindness (-) Smoker/Length of Time/PPD: Current Rx with last BCVA: OD: -5.25-0.37f357 20/20-2 OS: -5.50 sph 20/20-2 DVA ( x )cc OD: 20/25 OS: 2020-1 Pupils: PERRL (-)APD EOMs: SAFE OU, (-)Pain/Diplopia CVF (facial, peripheral): FTFC OU poor retropulsion of globes OU with digital pres sure +mild proptosis Color vision: Ishihara Color test OD 02/22 plates read: normal OS 03/25 plates read : normal Subjective Refraction: OD: -5.50-0.19x789 2020-2 OS: -5.75 sph 20/20-2 Add: +2.50 ___ All the above performed by student, reviewed by attending ___ Lids: proptosis OD>OS; trace MGD OU Conj: diffuse injection OU Tears: decreased TBUT < 10s OU Cornea: arcus OU; tr inf SPK OU AC: deep and quiet 3x3 OU Iris: flat and clear OU Lens: 1-2+ NSC OU Tonometry: GAT with fluress Performed by student, repeated by attending OD: 16 mmHg OS: 15 mmHg Time: 2:20 PM Fundus exam: Dilated: Dilating Drops: 1GTT 1 % Tropicamide OU & 1GTT 2 .5% Phenylephrine OU (Pt. ed. on side effects, dilation warning given and verbal consent obtained) Patient advised not to drive if they feel they h ave any symptoms which could affect their ability to drive safely. Patient ad vised not to engage in any activities which could put themselves or others at risk if they feel they have any symptoms which could affect their ability to perform those activities safely. Performed by student, repeated by attending Vit: syneresis OU C/D: 0.35/0.35 OD, 0.35/0.35 OS pink and health y OU , no signs of disc edema OU Macula: Drusen centerally OD, drusen w/ dot hem e OS PPole: clear OU A/V: 2/3 OU Vessels: normal caliber OU Periph: flat and intact (-)holes, tears, detach ments 360 OU Impression: 1. 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 -rtc for 30-2 VF 1- 2 months to ruleout any com pressive optic neuropathy - Monitor annually. 3. Refractive error/presbyopia OU - will order bifocals clear and sun - monitor 4. Nuclear sclerotic cataracts OU -Not visually significant - monitor Return to Clinic in 1-2 months for 30-2 VF or ea rlier PRN Patient Education: I have educated the patient on the exam finding s and plan. There are no barriers to communication. Patient advised not to drive if they feel they h ave any symptoms which could affect their ability to drive safely. Patient ad vised not to engage in any activities which could put themselves or others at risk if they feel they have any symptoms which could affect the ir ability to perform those activities safely. EYE: Visual Function Reminder: Normal Vision: 20/25 or better: Unspecified dis order of refraction or accommodation (367.9). Medication Reconciliation: Outpatient: Has the patient been taking medications as docu mented in the EMLR? YES: The patient has been taking medications as documented in the EMLR. Essential Medication List for Review used to co mplete this medication reconciliation. INCLUDED IN THIS LIST: Alphabetical list of act sushila outpatient prescriptions dispensed from this [facility] (local) an d dispensed from another [facility] or [facility] facility (remote) as well as inpatien t orders (local, pending and active), local clinic medications, locally documented non-VA medications, and local prescriptions that have or been discontinued in the past 90 days. - All changes in medications, including all non -VA/Herbal/OTC medications were entered into CPRS. - If there were any medications the patient steven uld no longer take, they were discontinued. - The patient/caregiver was instructed to updat e this list, discard old lists, and take this list to the next appointme nt, whether with a VA or non-VA provider. Macular Degeneration: Patient was educated regarding macular degenerat ion including both wet and dry varieties as well as the natural history and prognosis of this condition. Education included the role o f amsler grid testing , ocular nutraceutical thera py as well as diet and healthy lifestyle choices when applicable. Exclu robbie criteria includes extremely reduced acuity or cognitive d ecline for amsler grid testing and other coexisting systemic contraindi cation for supplements, diet and exercise. /brayden/ Larry Seaman OD Fee Basis Documentation Manager Signed: 07/29/2021 16:42 for NEHEMIAH STANTON OPTOMETRY STUDENT /henny Seaman OD Fee Basis Documentation Manager Cosigned: 07/29/2021 16:42 07/29/2021 ADDENDUM STATUS: COMPLETED I reviewed all findings with the wood boatbuilder. I perfo rmed the slit lamp exam and dilated fundus exam. He has a single hem e OS associated with drusen so have to ruleout wet AMD even if OCT does not steven w it. he also needs followup to assure he does not have compressive optic neuropathy. Progress note reviewed and edited as needed. I established the plan of care and ed ucated the patient about his conditions. 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 Pt has followup here 09/09/21. Need to start on AREDS 2. /brayden/ Larry Seaman OD Fee Basis Documentation Manager Signed: 08/06/2021 07:40 08/06/2021 ADDENDUM STATUS: COMPLETED Called pt and told him to start AREDS 2. He is n ot sure if his insurance will cover it so he will call me if he needs us to or larisa it. Also advised him to monitor vision monocularly with glasses on and c all us stat if changes noted. He has followup with us 09/09 as glaucoma suspect. He states Dr Melendez said to rtc there in one year. /brayden/ Larry Seaman OD Fee Basis Documentation Manager Signed: 08/06/2021 11:09
--- OUTSIDE RECORDS SUMMARY | 2022-02-16 09:31 | XMS_ITS ---
:1940 Author Organization [facility] Address [address] [place] [address] Support Name Relationship Address Phone ADAM EATON Unavailable [address] [place] [address] ADAM EATON Unavailable [address] [place] [address] Insurance Providers: All historical and current Section Date Range: From patient's date of to the date document was created.This section includes the names of all active insurance providers for the patient. Insurance Type of Plan Start of End of Group Member Insurance Policy P atient's Provider Coverage Name Policy Policy Number ID Provider's Calles's Relationship Coverage Coverage Telephone Name to Policy Number Calles [place] M[place] May 15, [id number] [phone] Ally BUSBY PATIENT [facility] (WNR[facility] ([facility]NR[facility] [id number] AYMOND Selected Encounter This section includes the information on record at [place] for the Encounter. Date/Time Encounter Type Encounter Reason Provider Source Description Jul 22, 2021 OFFICE O/P EST PRIMARY ICD-10-CM ANKITA SAGE 03:00 PM LOW 20-29 MIN CARE/MEDICINE H61.23 Impacted UMA F cerumen, bilateral with Provider Comments: Impacted Cerumen, Bilateral IHE Encounter Template Text not used by [place] Assessments - Encounter Diagnoses This section includes the primary and secondary diagnoses documented for the Encounter. Date/Time Primary/Secondary Diagnosis Name Provider Source Diagnosis Jul 22, 2021 PRIMARY Impacted sj MACARIOJAYE [place] [facility]L [facility] 03:50 PM bilateral [facility] Jul 22, 2021 SECONDARY Encounter for ELIZABETHJAYE MATTHEW [place] [facility] [place] 03:50 PM immunization [facility] Plan of Treatment: Future Appointments (+ 6 months) and Future Tests (+/- 45 days) The Plan of Treatment section includes future care activities for the patient from all [place] treatmentfacilities. This section includes future appointments and future orders which are active, pending orscheduled.Future Appointments This section includes appointments that were scheduled to occur 6 months from the date of the Encounter, up to a maximum of 20 appointments. The data comes from all [place] treatment facilities. Appointment Date/Time Appointment Type Appointment Facili ty Name Jul 29, 2021 02:00 PM AMBULATORY - MEDICINE [place] [facility] [place] [facility] Jul 29, 2021 03:30 PM AMBULATORY MEDICINE [place] [facility] [place] [facility] Jul 30, 2021 02:30 PM AMBULATORY MEDICINE [place] [facility] [place] [facility] Aug 02, 2021 02:00 PM [facility]ICINE [place] [facility] [facility] Oct 19, 2021 03:00 PM [facility] Vital Signs: All taken on the encounter date This section contains inpatient and outpatient Vital Signs collected on the date of the Encounter. Date/Time Temperature Pulse Blood Respiratory SP02 Pain Height Weight Edgar dy Source Pressure Rate Mass Index Jul 22 F 74 132/80 18 /min 98 % 0 214 lb 36 [place] 2021 02:55 /min mm[Hg] CN[facility] PM [place] [facility] Immunizations: All administered on the encounter date This section contains immunizations associated to the Encounter. Immunization Series Date Issued Reaction Comments ZOSTER RECOMBINANT 1 Jul 22, 2021 Social History: Smoking Status (Most current) and Tobacco Use (All prior to encounter date) This section includes the most current, and the historical, smoking and tobacco-related health factors from the [place] facility where the Encounter took place.Current Smoking Status This section includes the most current smoking, or tobacco-related health factor, from the [place] facility where the Encounter took place. Date/Time Current Smoking Status Comment Facility Jul 22, 2021 03:00 PM [facility] Tobacco Use History This section includes a history of the smoking, or tobacco- related health factors, that were collected on or before the date of the Encounter. The data comes from the [place] facility where the Encounter took place. Date/Time Smoking Status/Tobacco Use Comment Linda galeas Jul 22, 2021 03:00 PM VA-TOBACCO QUIT 15 YRS OR [facility] [place] [facility] Dec 09, 2019 01:46 PM VA-TOBACCO FORMER USER [facility] [place] [facility] Dec 09, 2019 01:46 PM VA-TOBACCO QUIT 15 YRS OR [facility] [place] [facility] October 03, 2018 12:57 PM VA-TOBACCO FORMER USER [facility] [place] [facility] October 03, 2018 12:57 PM VA-TOBACCO QUIT 15 YRS OR [facility] [place] [facility] Dec 01, 2017 02:59 PM QUIT TOBACCO USE > 7 YEARS [facility] [place] [facility] [facility] Nov 22, 2016 01:57 PM QUIT TOBACCO USE > 7 YEARS [facility] [place] [facility] September 23, 2015 12:55 PM QUIT TOBACCO USE > 7 YEARS [facility] [place] . [facility] Apr 20, 2009 10:40 AM QUIT TOBACCO USE > 7 YEARS [place] [facility] [place] [facility] Advance Directives: All historical and current Section Date Range: From patient's date of to the date document was created. This section includes ALL of a patient's completed or amended [place] Advance and Rescinded Directives. The entries below indicate that a directive exists for the patient, but an actual copy is not included with this document. The data comes from all [place] facilities. Date Advance Directives Provider Source Apr 29, 2009 ADVANCE DIRECTIVE FRANKIE HU [facility] Encounter Notes: All associated encounter notes This section contains the clinical notes associated to the Encounter. Date/Time Encounter Note(s) Provider Source Jul 22, 2021 03:08 PHYSICIAN SALES ADMINISTRATION MANAGER NOTE: MC SAGE CNTRL WSTRN PM LOCAL TITLE: LORIE COKER S [facility] STANDARD TITLE: PHYSICIAN SALES ADMINISTRATION MANAGER NOTE DATE OF NOTE: JUL 22, 2021@15:08 ENTRY DATE: JUL 22, 2021@15:09:04 AUTHOR: MC SAGE EXP COSIGNER: URGENCY: STATUS: COMPLETED CC/HPI: 81 year old MALE here in follow-up for; hearing loss, he would like to consider amps. Tested outside years ago eight by 'someone who called us . He and both tested. He has NO hx of tm rupture or ear surgery. exam finds b oth canals filled with cerumen. OTC dros, flush two weeks. audio apt thereafter. Eye exams here. All ohter care outside by DR White in spring. He reports a recent noninjury fall. Exte nsive w/u in the ED was nor revealing. Dr White 'told me to get a cane (he decline s thus far). Review of systems: Patient reports no changes from [facility], nor in meds or any admissions. Active problems - Computerized Problem List is t he source for the followin. Anxiety disorder 2. Thyroid eye disease (SNOMED CT [id number]) 3. Cholelithiasis 4. Aneurysm, Aorta, Abdominal Ultrasound 10/16/13 2.5cm sent shalonda scanning. 5. Hypertrophy (Benign) of Prostate without Urinary obstruction and other lower 6. Pancreatic Neoplasms 7. Gastroesophageal Reflux Disorder EGD with yosvany milligan 1995. 8. Hypertension * 9. Gout * 10. Hearing loss * VA and Non VA meds were reconciled with the nanette ent who left with a corrected copy. See medication page for details. Active and Recently Outpatient Medicatio ns (excluding Supplies): Active Non-VA Medications Status 1) Non-VA ACYCLOVIR 200MG CAP 200MG BY MOUTH ALESHIA RY DAY ACTIVE NEEDED 2) Non-VA ALLOPURINOL 300MG [...] 20MG BY MOUTH T WICE ACTIVE DAILY 97 F [36.1 C] (07/22/2021 14:55) 74 (07/22/2021 14:55) 18 (07/22/2021 14:55) 132/80 (07/22/2021 14:55) 0 (07/22/2021 14:55) 64.75 in [164.5 cm] (08/26/2014 13:55) 214 lb [97.07 kg] (07/22/2021 14:55) BMI: 36.0 Neuro: Alert and oriented times three, grossly n onfocal, nasolabial folds intact. We give Shingrix #1 here today and will bring estephania messina back in 3months for #2 nad another visit with me, thereafter yearly. Please fax this note and his shot list to DR Trung galvez's office. /brayden/ Mc Sage PA-C STAFF PHYSICIAN SALES ADMINISTRATION MANAGER Signed: 07/22/2021 15:50 Receipt Acknowledged By: * AWAITING SIGNATURE * JOSIAS STYLES Jul 22, 2021 03:00 ACCOUNTING OF DISCLOSURES NOTE: JAYE SAGE [place] CNT [facility] PM LOCAL TITLE: STATE PRESCRIPTION DRUG MONITORING PROGRAM [facility] STANDARD TITLE: ACCOUNTING OF DISCLOSURES NOTE DATE OF NOTE: JUL 22, 2021@15:00:03 ENTRY DATE: JUL 22, 2021@15:00:03 AUTHOR: MC SAGE EXP COSIGNER: URGENCY: STATUS: COMPLETED This PDMP query was submitted by Fazal Sage am. The clinical justification for this PDMP query i s to review controlled substances prescribed outside of the [facility], and any additional information that may become available, as an important compo nent of standard clinical care, and in accordance with [facility] policy. Patient information was shared with the PDMP [facility] [place]. No prescription(s) for controlled substances out side the [facility] were found in the last 90 days. /brayden/ Mc Sage PA-C STAFF PHYSICIAN SALES ADMINISTRATION MANAGER Signed: 07/22/2021 15:53 Jul 22, 2021 02:56 PREVENTIVE MEDICINE NURSING NOTE: NYDIA STYLES [place] [facility] PM LOCAL TITLE: CLINICAL REMINDERS/NURSING E [facility] STANDARD TITLE: PREVENTIVE MEDICINE NURSING NOTE DATE OF NOTE: JUL 22, 2021@14:56 ENTRY DATE: JUL 22, 2021@14:56:33 AUTHOR: JOSIAS STYLES EXP COSIGNER: URGENCY: STATUS: COMPLETED CLINICAL REMINDERS/NURSING Has ADDENDA Advance Directive Screen: Patient has an Advance Directive on file at [facility]. The patient received education about advance directives as well as written notification of his/her rights. Patient has an up to date Advance Directive doc ument on file at this [facility]. No updates are needed at this time. The patient received education about advance di rectives as well as written notification of his/her rights. Comment: daughter Depression Screening: Perform PHQ-2 A PHQ-2 screen was performed. The score was 0 w hich is a negative screen for depression. Over the past two weeks, how often have you bee n bothered by the following problems? 1. Little interest or pleasure in doing things Not at all 2. Feeling down, depressed, or hopeless Not at all Falls & Incontinence Screen: Falls Screen: During the past 12 months, did the patient repo rt any falls? 2. Two or more falls. Incontinence Screen: During the past 12 months, has the patient has any characteristics of incontinence (ability, voiding, leakage, etc.)? No incontinence. My Healthe[employer]et Education: The patient does not have access and does not u se the internet. Tobacco Use Screening: The patient is a former tobacco user. The patient quit fifteen or more years ago. Relationship Health & Safety Screen: Screening is not completed at this time due to: Other: Reason: lives alone /es/ JOSIAS STYLES LPN Signed: 07/22/2021 14:59 07/22/2021 ADDENDUM STATUS: COMPLETED Zoster Vaccine (Shingrix): The patient received recombinant zoster vaccine (RZV) 0.5 ml IM in Right deltoid. Sorter Operator: Brandwatch Lot#s and Expiration Date: [id number] exp 10/15/22 dil [id number] exp 10/15/22 Administered by protocol/policy Complications: None The VIS for the recombinant zoster vaccine (RZV ) dated Feb was given to the patient. /brayden/ Florecita Esquivel RN RN Signed: 07/22/2021 15:48
--- OUTSIDE RECORDS SUMMARY | 2022-02-16 09:31 | XMS_ITS | Encounter Summary ---
:1940 Author Organization [facility] Address [address] [place] [address] Support Name Relationship Address Phone ADAM EATON Unavailable [address] [place] [address] ADAM EATON Unavailable [address] [place] [address] Insurance Providers: All historical and current Section Date Range: From patient's date of to the date document was created.This section includes the names of all active insurance providers for the patient. Insurance Type of Plan Start of End of Group Member Insurance Policy P atient's Provider Coverage Name Policy Policy Number ID Provider's Calles's Relationship Coverage Coverage Telephone Name to Policy Number Calles [facility] MEDICARE [facility] May 15, [id number] [phone] Ally BUSBY PATIENT MCR (WNR) ADVANTAGE (WNR) [id number] GEORGE Selected Encounter This section includes the information on record at [place] for the Encounter. Date/Time Encounter Type Encounter Description Reason Provider Source Jul 30, 2021 12:00 Outpatient Encounter COMMUNITY CARE AM CONSULT IHE Encounter Template Text not used by [place] Plan of Treatment: Future Appointments (+ 6 months) and Future Tests (+/- 45 days) The Plan of Treatment section includes future care activities for the patient from all [place] treatmentfacilities. This section includes future appointments and future orders which are active, pending orscheduled.Future Appointments This section includes appointments that were scheduled to occur 6 months from the date of the Encounter, up to a maximum of 20 appointments. The data comes from all [place] treatment facilities. Appointment Date/Time Appointment Type Appointment Facili ty Name Aug 02, 2021 02:00 PM AMBULATORY - MEDICINE [facility] Oct 19, 2021 03:00 PM AMBULATORY MEDICINE [facility] Social History: Smoking Status (Most current) and Tobacco Use (All prior to encounter date) This section includes the most current, and the historical, smoking and tobacco-related health factors from the [place] facility where the Encounter took place.Current Smoking Status This section includes the most current smoking, or tobacco-related health factor, from the [place] facility where the Encounter took place. Date/Time Current Smoking Status Comment Facility Jul 22, 2021 03:00 PM VA-TOBACCO FORMER USER [facility] [place] [facility] Tobacco Use History This section includes a history of the smoking, or tobacco- related health factors, that were collected on or before the date of the Encounter. The data comes from the [place] facility where the Encounter took place. Date/Time Smoking Status/Tobacco Use Comment [facility] Jul 22, 2021 03:00 PM VA-TOBACCO QUIT 15 YRS OR [facility] [place] [facility] Dec 09, 2019 01:46 PM VA-TOBACCO FORMER USER [facility] [place] [facility] Dec 09, 2019 01:46 PM VA-TOBACCO QUIT 15 YRS OR [facility] [place] [facility] October 03, 2018 12:57 PM VA-TOBACCO FORMER USER [facility] [place] [facility] October 03, 2018 12:57 PM VA-TOBACCO QUIT 15 YRS OR [facility] [place] [facility] Dec 01, 2017 02:59 PM QUIT TOBACCO USE > 7 YEARS [facility] [place] [facility] [facility] Nov 22, 2016 01:57 PM QUIT TOBACCO USE > 7 YEARS [facility] [place] [facility] [facility] September 23, 2015 12:55 PM QUIT TOBACCO USE > 7 YEARS [facility] [place] . [facility] Apr 20, 2009 10:40 AM QUIT TOBACCO USE > 7 YEARS [facility] [place] [facility] Advance Directives: All historical and current Section Date Range: From patient's date of to the date document was created. This section includes ALL of a patient's completed or amended [place] Advance and Rescinded Directives. The entries below indicate that a directive exists for the patient, but an actual copy is not included with this document. The data comes from all [place] facilities. Date Advance Directives Provider Source Apr 29, 2009 ADVANCE DIRECTIVE FRANKIE HU [place] PAVELRL WSAníbal RN [facility] Encounter Notes: All associated encounter notes This section contains the clinical notes associated to the Encounter. Date/Time Encounter Note(s) Provider Source Jul 30, 2021 12:00 AM NONVA CONSULT: [place] NOAH KAUR LOCAL TITLE: COMMUNITY CARE-CONSULT RESULT NOTE [place] [facility] STANDARD TITLE: NONVA CONSULT DATE OF NOTE: JUL 30, 2021 ENTRY DATE: AUG 04 022@11:55:40 AUTHOR: TOMAS MONTOYA EXP COSIGNER: URGENCY: STATUS: COMPLETED VistA Imaging - Scanned Document SCANNED DOCUMENT SIGNATURE NOT REQUIRED Electronically Filed: 08/04/2021 by: TOMAS MONTOYA FINANCIAL COORDINATOR
--- OUTSIDE RECORDS SUMMARY | 2022-02-16 09:31 | XMS_ITS | Encounter Summary ---
:1940 Author Organization [facility] Address [address] [place] [address] Support Name Relationship Address Phone ADAM EATON Unavailable [address] [place] [address] ADAM EATON Unavailable [address] [place] [address] Insurance Providers: All historical and current Section [...] to Policy Number Calles [facility] MEDICARE [employer] May 15, [id number] [phone] Ally BUSBY PATIENT MCR (WNR) ADVANTAGE (WNR) [id number] 23 GEORGE Selected Encounter This section includes the information on record at [place] for the Encounter. 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 Date/Time Primary/Secondary Diagnosis Name Provider Source Diagnosis Jul 29, 2021 PRIMARY Exdtve age-rel BRISSA SEAMAN [facility] CNTRL WS TRN 04:46 PM mclr degn, left [facility]A [facility] eye, with actv chrdl neovas Plan of Treatment: Future Appointments (+ 6 months) and Future Tests (+/- 45 days) The Plan of Treatment section includes future care activities for the patient [facility] This section includes future appointments and future orders which are active, pending orscheduled.Future Appointments This section includes appointments that were scheduled to occur 6 months from the date of the Encounter, up to a maximum of 20 appointments. The data comes from all [place] treatment facilities. Appointment Date/Time Appointment Type Appointment Facili ty Name Jul 30, 2021 02:30 PM [facility]UL[facility] Aug 02, 2021 02:00 PM AMBULAT[facility] - MEDICINE [facility] [place] [facility] Oct 19, 2021 03:00 PM [facility] Social History: Smoking Status (Most current) and Tobacco Use (All prior to encounter date) This section includes the most current, and the historical, smoking and tobacco-related health factors from the [place] facility where the Encounter took place.Current Smoking Status This section includes the most current smoking, or tobacco-related health factor, from the [place] facility where the Encounter took place. Date/Time Current Smoking Status Comment Facility Jul 22, 2021 03:00 PM [facility] [place] [facility] Tobacco Use History This section includes a history of the smoking, or tobacco- related health factors, that were collected on or before the date of the Encounter. The data comes from the [place] facility where the Encounter took place. Date/Time Smoking Status/Tobacco Use Comment [facility] Jul 22, 2021 03:00 PM VA-TOBACCO QUIT 15 YRS OR [facility] CN[facility] [place] [facility] Dec 09, 2019 01:46 PM VA-TOBACCO FORMER USER [facility] [place] [facility] Dec 09, 2019 01:46 PM VA-TOBACCO QUIT 15 YRS OR [facility] [place] [facility] October 03, 2018 12:57 PM VA-TOBACCO FORMER USER [facility] [place] [facility] October 03, 2018 12:57 PM VA-TOBACCO QUIT 15 YRS OR [facility] [place] [facility] Dec 01, 2017 02:59 PM QUIT TOBACCO USE > 7 YEARS [facility] [place] [facility] [facility] Nov 22, 2016 01:57 PM QUIT TOBACCO USE > 7 YEARS [facility] [place] [facility] [facility] September 23, 2015 12:55 PM QUIT TOBACCO USE > 7 [facility] Apr 20, 2009 10:40 AM QUIT TOBACCO USE > 7 YEARS [facility] CNTRL WSTRN [facility] Advance Directives: All historical and current Section Date Range: From patient's date of to the date document was created. This section includes ALL of a patient's completed or amended [place] Advance and Rescinded Directives. The entries below indicate that a directive exists for the patient, but an actual copy is not included with this document. The data comes from all [facility] facilities. Date Advance Directives Provider Source Apr 29, 2009 ADVANCE DIRECTIVE FRANKIE HU [facility] CNTR WST RN [facility] Encounter Notes: All associated encounter notes This section contains the clinical notes associated to the Encounter. 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 Pt is being referred to [facility] for evaluation. /brayden/ Larry Seaman OD Fee Basis Appliance Painter And Refinisher Signed: 07/29/2021 16:44 for NEHEMIAH STANTON OPTOMETRY STUDENT /brayden/ Larry Saeman OD Fee Basis Appliance Painter And Refinisher Cosigned: 07/29/2021 16:44 07/29/2021 ADDENDUM STATUS: COMPLETED I reviewed the OCT. There is no obvious CNVM but still cannot rule it out so referring to [facility] tomorrow at 2:15. /brayden/ Larry Seaman OD Fee Basis Appliance Painter And Refinisher Signed: 07/29/2021 16:46
--- OUTSIDE RECORDS SUMMARY | 2022-02-16 09:31 | XMS_ITS ---
:1940 Author Organization [facility] Address [address] [place] [id number] Support Name Relationship Address Phone ADAM EATON Unavailable [address] [place] [address] ADAM EATON Unavailable [address] [place] [address] Insurance Providers: All historical and current Section [...] Number Calles [place] MEDICARE MCR May 15 [id number] [phone] ANGELIA JermanAlly PATIENT [facility] ([facility] (WNR) [id number] AYGEORGE Selected Encounter This section includes the information on record at [place] for the Encounter. Date/Time Encounter Type Encounter Reason Provider Source Description Aug 02, 2021 OFFICE O/P EST PRIMARY ICD-10-CM EDD-CINDYH 02:00 PM MINIMAL PROB CARE/MEDICINE H61.23 Impacted EIDI L cerumen, bilateral with Provider Comments: Impacted Certaran,Bilater al IHE Encounter Template Text not used by [place] Assessments - Encounter Diagnoses This section includes the primary and secondary diagnoses documented for the Encounter. Date/Time Primary/Secondary Diagnosis Name Provider Source Diagnosis Aug 02, 2021 PRIMARY Impacted EDD-CINDY,H [place] [facility] WSTR N 02:21 PM DELIA gustafson L [place] [facility] bilateral Plan of Treatment: Future Appointments (+ 6 months) and Future Tests (+/- 45 days) The Plan of Treatment section includes future care activities for the patient from all [place] treatmentfacilities. This section includes future appointments and future orders which are active, pending orscheduled.Future Appointments This section includes appointments that were scheduled to occur 6 months from the date of the Encounter, up to a maximum of 20 appointments. The data comes from all [place] treatment facilities. Appointment Date/Time Appointment Type Appointment Facili ty Name Oct 19, 2021 03:00 PM AMBULATORY - MEDICINE [place] [facility] [place] [facility] Social History: Smoking Status (Most current) and Tobacco Use (All prior to encounter date) This section includes the most current, and the historical, smoking and tobacco-related health factors from the [place] facility where the Encounter took place.Current Smoking Status This section includes the most current smoking, or tobacco-related health factor, from the [place] facility where the Encounter took place. Date/Time Current Smoking Status Comment Facility Jul 22, 2021 03:00 PM VA-TOBACCO FORMER USER [place] [facility] [facility] Tobacco Use History This section includes a history of the smoking, or tobacco- related health factors, that were collected on or before the date of the Encounter. The data comes from the [place] facility where the Encounter took place. Date/Time Smoking Status/Tobacco Use Comment [facility] Jul 22, 2021 03:00 PM VA-TOBACCO QUIT 15 YRS OR [facility] [place] [facility] Dec 09, 2019 01:46 PM VA-TOBACCO FORMER USER [place] [facility] [facility] Dec 09, 2019 01:46 PM VA-TOBACCO QUIT 15 YRS OR [facility] [place] [facility] October 03, 2018 12:57 PM VA-TOBACCO FORMER USER [place] [facility] [facility] October 03, 2018 12:57 PM VA-TOBACCO QUIT 15 YRS OR [facility] [place] [facility] Dec 01, 2017 02:59 PM QUIT TOBACCO USE > 7 YEARS [facility] [place] [facility] Nov 22, 2016 01:57 PM QUIT TOBACCO USE > 7 YEARS [facility] [place] [facility] September 23, 2015 12:55 PM QUIT TOBACCO USE > 7 YEARS [facility] [place] [facility] Apr 20, 2009 10:40 AM QUIT TOBACCO USE > 7 YEARS [place] [facility] [place] [facility] [facility] Advance Directives: All historical and current Section Date Range: From patient's date of to the date document was created. This section includes ALL of a patient's completed or amended [place] Advance and Rescinded Directives. The entries below indicate that a directive exists for the patient, but an actual copy is not included with this document. The data comes from all [place] facilities. Date Advance Directives Provider Source Apr 29, 2009 ADVANCE DIRECTIVE FRANKIE HU [facility] WST RN [facility] Encounter Notes: All associated encounter notes This section contains the clinical notes associated to the Encounter. Date/Time Encounter Note(s) Provider Source Aug 02, 2021 02:14 PM PRIMARY CARE OUTPATIENT NOTE: FLORECITA GALLAGHER [facility] W[facility]N LOCAL TITLE: AMBULATORY/OUTPATIENT CARE NOTE L [facility] STANDARD TITLE: PRIMARY CARE OUTPATIENT NOTE DATE OF NOTE: AUG 02, 2021@14:14 ENTRY DATE: AUG 02, 2021@14:14:54 AUTHOR: FLORECITA GALLAGHER EXP COSIGNER: URGENCY: STATUS: COMPLETED identified by full social security # and . F: Nursing Clinic D: [place] here for bilateral ear irrigation per PCP Chu. [place] has been using ear drops/he had at home. Upon examination of both ears-small amts of soft cerumen noted. A:Both ears irrigated with warm tap water via sy ringe until clear. Outer ear drums visible. R:Tolerated well. Relationship Health & Safety Screen: Environment is safe to proceed INFORMED CONSENT TO SCREEN & DOCUMENT: Individual consents to documentation? Yes Individual consents to proceed with screening? Yes PRIMARY SCREEN: In the past 12 months, how often did a current or former intimate partner (e.g., boyfriend, girlfriend, , , se xual partner): Scream or curse at you: Never Insult or talk down to you: Never Threaten you with harm: Never Physically hurt you: Never In the past 12 months, how often did a current or former intimate partner force or pressure you to have sexual co ntact against your will, or when you were unable to say no? Never PRIMARY SCREEN RESULTS: The individual denied all forms of IPV above (i .e., answered never to all 5 items above). ??The HITS tool is US copyright protected by Sukumar Holley MD, and the user has full rights to use it throughout the [employer] system. DISPOSITION: Provided general IPV education. Influenza Immunization: The patient has received the seasonal influenza vaccine for the current season at another location. Date: June 04, 2021 Location: [facility] Suicide Screen: C-SSRS Screening [place] Suicide Severity Rating Scale (C-SSRS) screener 1. Over the past month, have you wished you wer e or wished you could go to sleep and not wake up? No 2. Over the past month, have you had any actual thoughts of killing yourself? No 3. Over the past month, have you been thinking about how you might do this? Response not required due to responses to other questions. 4. Over the past month, have you had these thou ghts and had some intention of acting on them? Response not required due to responses to other questions. 5. Over the past month, have you started to wor k out or worked out the details of how to kill yourself? Response not required due to responses to other questions. 6. If yes, at any time in the past month did yo u intend to carry out this plan? Response not required due to responses to other questions. 7. In your lifetime, have you ever done anythin g, started to do anything, or prepared to do anything to end you r life (for example, collected pills, obtained a gun, gave away valu naman, went to the roof but didn't jump)? No 8. If YES, was this within the past 3 months? Response not required due to responses to other questions. Alcohol Use Screen (AUDIT-C): Alcohol Screen: SCREEN FOR ALCOHOL (AUDIT-C) An alcohol screening test (AUDIT-C) was negativ e (score=0). 1. How often did you have a drink containing al cohol in the past year? Never 2. How many drinks containing alcohol did you h ave on a typical day when you were drinking in the past year? Response not required due to responses to other questions. 3. How often did you have six or more drinks on one occasion in the past year? Response not required due to responses to other questions. COVID-19 Immunization: Pfizer COVID-19 Vaccine given previously Patient received a prior dose of the Pfizer COV ID-19 Vaccine. Date: June 22, 2020 Location: [facility] Patient received a prior dose of the Pfizer COV ID-19 Vaccine. Date: July 17, 2020 Location: [facility] Patient received a prior dose of the Pfizer COV ID-19 Vaccine. Date: March 09, 2021 Series: Series 3 Location: [facility]brayden/ Florecita Gallagher RN, RN Signed: 08/02/2021 14:21
--- OUTSIDE RECORDS SUMMARY | 2022-02-16 09:32 | XMS_ITS | Encounter Summary ---
:1940 Author Organization [facility] Address [address] [place] [address] Support Name Relationship Address Phone ADAM EATON Unavailable [address] [facility] [place] [address] ADAM EATON Unavailable [address] [facility] [place] [address] Insurance Providers: All historical and current Section [...] Calles [facility] MEDICARE [facility] May 15 [id number] [phone] Ally BUSBY PATIENT [facility] (WNR) ADVANTAGE (WNR) [id number] CORNELIUS Selected Encounter This section includes the information on record at [place] for the Encounter. Date/Time Encounter Type Encounter Description Reason Provider Source Jun 04, 2021 12:00 Outpatient Encounter EVENT (HISTORICAL) AM IHE Encounter Template Text not used by [place] Plan of Treatment: Future Appointments (+ 6 months) and Future Tests (+/- 45 days) The Plan of Treatment section includes future care activities for the patient from all [place] treatmentfacilities. This section includes future appointments and future orders which are active, pending orscheduled.Future Appointments This section includes appointments that were scheduled to occur 6 months from the date of the Encounter, up to a maximum of 20 appointments. The data comes from all [place] treatment facilities. Appointment Date/Time Appointment Type Appointment Facili ty Name Jul 22, 2021 03:00 PM AMBULATORY - MEDICINE [facility] Jul 29, 2021 02:00 PM AMBULATORY MEDICINE [facility] Jul 29, 2021 03:30 PM [facility] Jul 30, 2021 02:30 PM [facility] Aug 02, 2021 02:00 PM [facility] Oct 19, 2021 03:00 PM AMBULATORY - MEDICINE [facility] Immunizations: All administered on the encounter date This section contains immunizations associated to the Encounter. Immunization Series Date Issued Reaction Comments INFLUENZA, UNSPECIFIED FORMULATION Jun 04, 2021 Advance Directives: All historical and current Section Date Range: From patient's date of to the date document was created. This section includes ALL of a patient's completed or amended [place] Advance and Rescinded Directives. The entries below indicate that a directive exists for the patient, but an actual copy is not included with this document. The data comes from all [place] facilities. Date Advance Directives Provider Source Apr 29, 2009 ADVANCE DIRECTIVE FRANKIE HU [facility]
--- OUTSIDE RECORDS SUMMARY | 2022-02-16 09:32 | XMS_ITS | Encounter Summary ---
:1940 Author Organization [facility] Address [address] [place] [address] Support Name Relationship Address Phone ADAM EATON Unavailable [address] [place] [address] ADAM EATON Unavailable [address] [place] [address] Insurance Providers: All historical and current Section Date Range: From patient's date of to the date document was created.This section includes the names of all active insurance providers for the patient. Insurance Type of Plan Start of End of Group Member Insurance Policy P atient's Provider Coverage Name Policy Policy Number ID Provider's Calles's Relationship Coverage Coverage Telephone Name to Policy Number Calles [facility] MEDICARE [facility] May 15, [id number] [phone] Ally BUSBY PATIENT [facility] (WNR) [facility] (WNR) [id number] GEORGE Selected Encounter This section includes the information on record at [place] for the Encounter. Date/Time Encounter Type Encounter Description Reason Provider Source Mar 09, 2021 12:00 Outpatient Encounter EVENT (HISTORICAL) AM IHE Encounter Template Text not used by [place] Plan of Treatment: Future Appointments (+ 6 months) and Future Tests (+/- 45 days) The Plan of Treatment section includes future care activities for the patient from all [place] treatmentfacilities. This section includes future appointments and future orders which are active, pending orscheduled.Future Appointments This section includes appointments that were scheduled to occur 6 months from the date of the Encounter, up to a maximum of 20 appointments. The data comes from all [place] treatment facilities. Appointment Date/Time Appointment Type Appointment Facili ty Name Jul 22, 2021 03:00 PM AMBULATORY - MEDICINE [facility] Jul 29, 2021 02:00 PM AMBULATORY MEDICINE [facility] Jul 29, 2021 03:30 PM AMBULATORY - [place]ICINE [place] [facility] [place] [facility] Jul 30, 2021 02:30 PM AMBULATORY - MEDICINE [place] [facility] [place] [facility] Aug 02, 2021 02:00 PM [facility]ULATORY - [facility] [place] [facility] Immunizations: All administered on the encounter date This section contains immunizations associated to the Encounter. Immunization Series Date Issued Reaction Comments COVID-19 (PFIZER), MRNA, LNP-S, PF, 30 MCG/0.3 3 Mar 09, 2021 ML DOSE Social History: Smoking Status (Most current) and Tobacco Use (All prior to encounter date) This section includes the most current, and the historical, smoking and tobacco-related health factors from the [place] facility where the Encounter took place.Current Smoking Status This section includes the most current smoking, or tobacco-related health factor, from the [place] facility where the Encounter took place. Date/Time Current Smoking Status Comment Facility Dec 09, 2019 01:46 PM VA-TOBACCO FORMER USER [place] [facility] [place] [facility] Tobacco Use History This section includes a history of the smoking, or tobacco- related health factors, that were collected on or before the date of the Encounter. The data comes from the [place] facility where the Encounter took place. Date/Time Smoking Status/Tobacco Use Comment [facility] Dec 09, 2019 01:46 PM VA-TOBACCO QUIT 15 YRS OR VA [facility] [place] [facility] October 03, 2018 12:57 PM VA-TOBACCO FORMER USER [place] [facility] [facility] October 03, 2018 12:57 PM VA-TOBACCO QUIT 15 YRS OR [facility] [place] [facility] Dec 01, 2017 02:59 PM QUIT TOBACCO USE > 7 YEARS [place] [facility] [place] [facility] Nov 22, 2016 01:57 PM QUIT TOBACCO USE > 7 YEARS [place] [facility] [place] [facility] September 23, 2015 12:55 PM QUIT TOBACCO USE > 7 YEARS [place] [facility] [place] . [facility] Apr 20, 2009 10:40 AM QUIT TOBACCO USE > 7 YEARS [place] [facility] [place] [facility] Advance Directives: All historical and current Section Date Range: From patient's date of to the date document was created. This section includes ALL of a patient's completed or amended [place] Advance and Rescinded Directives. The entries below indicate that a directive exists for the patient, but an actual copy is not included with this document. The data comes from all [place] facilities. Date Advance Directives Provider Source Apr 29, 2009 ADVANCE DIRECTIVE FRANKIE HU [place] [facility]
--- OUTSIDE RECORDS SUMMARY | 2022-02-16 09:32 | XMS_ITS | Encounter Summary ---
:1940 Author Organization [facility] Address [address] [place] [address] Support Name Relationship Address Phone ADAM EATON Unavailable [address] [place] [address] ADAM EATON Unavailable [address] [place] [address] Insurance Providers: All historical and current Section [...] Policy Number Calles [facility] MEDICARE [facility] May 15, [id number] [phone] Ally BUSBY PATIENT [facility] (WNR) [facility] (WNR) [id number] 23 GEORGE Selected Encounter This section includes the information on record at [place] for the Encounter. Date/Time Encounter Type Encounter Description Reason Provider Source Mar 09, 2021 12:45 Outpatient Encounter PRIMARY CARE/MEDICINE PM IHE Encounter Template Text not used by [place] Plan of Treatment: Future Appointments (+ 6 months) and Future Tests (+/- 45 days) The Plan of Treatment section includes future care activities for the patient from all [place] treatmentfacilities. This section includes future appointments and future orders which are active, pending orscheduled.Future Appointments This section includes appointments that were scheduled to occur 6 months from the date of the Encounter, up to a maximum of 20 appointments. The data comes from all [place] treatment facilities. Appointment Date/Time Appointment Type Appointment Facili ty Name Jul 22, 2021 03:00 PM AMBULATORY - MEDICINE [facility] Jul 29, 2021 02:00 PM [facility] MED[facility] Jul 29, 2021 03:30 PM AMBULATORY - [place]ICINE [place] [facility] [place] [facility] Jul 30, 2021 02:30 PM AMBULATORY - [place]ICINE [place] [facility] [facility] Aug 02, 2021 02:00 PM AMBULATORY - [place]ICINE [place] [facility] [place] [facility] Social History: Smoking Status (Most current) and Tobacco Use (All prior to encounter date) This section includes the most current, and the historical, smoking and tobacco-related health factors from the [place] facility where the Encounter took place.Current Smoking Status This section includes the most current smoking, or tobacco-related health factor, from the [place] facility where the Encounter took place. Date/Time Current Smoking Status Comment Facility Dec 09, 2019 01:46 PM VA-TOBACCO FORMER USER [place] [facility] [facility] Tobacco Use History This section includes a history of the smoking, or tobacco- related health factors, that were collected on or before the date of the Encounter. The data comes from the [place] facility where the Encounter took place. Date/Time Smoking Status/Tobacco Use Comment [facility] Dec 09, 2019 01:46 PM VA-TOBACCO QUIT 15 YRS OR VA [facility] [place] [facility] October 03, 2018 12:57 PM VA-TOBACCO FORMER USER [place] [facility] [place] [facility] October 03, 2018 12:57 PM VA-TOBACCO QUIT 15 YRS OR [place] [facility] [facility] Dec 01, 2017 02:59 PM QUIT TOBACCO USE > 7 YEARS [place] [facility] [place] [facility] Nov 22, 2016 01:57 PM QUIT TOBACCO USE > 7 YEARS [place] [facility] [place] [place] [facility] September 23, 2015 12:55 PM QUIT TOBACCO USE > 7 YEARS [place] [facility] [place] [place] . [facility] Apr 20, 2009 10:40 AM QUIT TOBACCO USE > 7 YEARS [place] [facility] [place] [facility] Advance Directives: All historical and current Section Date Range: From patient's date of to the date document was created. This section includes ALL of a patient's completed or amended [place] Advance and Rescinded Directives. The entries below indicate that a directive exists for the patient, but an actual copy is not included with this document. The data comes from all [place] facilities. Date Advance Directives Provider Source Apr 29, 2009 ADVANCE DIRECTIVE MAYTEFRANKIE Cedeno [place] CNTR[facility] WST RN [facility] Encounter Notes: All associated encounter notes This section contains the clinical notes associated to the Encounter. Date/Time Encounter Note(s) Provider Source Mar 09, 2021 12:45 LETTERS: NIKITA PATEL [place] [facility] W STRN PM LOCAL TITLE: PATIENT LETTER (T) M [facility] STANDARD TITLE: LETTERS DATE OF NOTE: MAR 09, 2021@12:45 ENTRY DATE: MAR 09, 2021@12:45:14 AUTHOR: NIKITA PATEL EXP COSIGNER: URGENCY: STATUS: COMPLETED DEPARTMENT OF [facility] Toll Free Number Primary Care Telephone Assistance can be reached at extension [phone] [facility] scheduling can be reac hed at extension [phone] [facility] scheduling can be aga ched at ext [phone] MAR 09, 2021 LAYO EATON [address] [place] [id number] Dear LAYO EATON Thank you for choosing the [facility] ([place]) [facility] as your primary choice for health care. We want to assure you we are doing everything possible to sched stella [facility] for their [place] medical care appointments. Our records indicate you are due for an appointm ent in PRIMARY CARE. We value you as a patient, and are concerned abo ut your overall health. Future Clinic Visits No data available Patients are encouraged to see their Primary Car e Doctor to maintain your health care needs. If you would like to be seen, please contact [place] Call Center at ([phone] ext [phone] or [phone]) to sc hedule an appointment. We hope to hear from you within 14 days of recei pt of this letter to schedule your follow up appointment. If you have any further questions or would like more information regarding [place] health care benefits, please call toll free at [phone]), visit the VA website at [email or web address].gov/healthbenefit s, or contact your local [place] Medical Center. Thank you for your service to our nation, and we look forward to hearing from you soon. Sincerely, [facility] Syst em Sincerely, Your Primary Care Team [facility] Outpati ent Clinic [address] [facility] [address] [place] [address] [place] [address] [phone] [facility] Outpati ent Clinic [address] [facility] [address] [place] [address] [place] [address] [phone] [facility] [address] [address] [place] [address] [phone]
--- OUTSIDE RECORDS SUMMARY | 2022-02-16 09:32 | XMS_ITS | Encounter Summary ---
:1940 Author Organization [facility] Address [address] [place] [address] Support Name Relationship Address Phone ADAM EATON Unavailable [address] [place] [address] ADAM EATON Unavailable [address] [place] [address] Insurance Providers: All historical and current Section [...] Telephone Name to Policy Number Calles [facility] MEDICARE [facility] May 15, [id number] [phone] Ally BUSBY PATIENT MCR (WNR) ADVANTAGE (WNR) [id number] AYGEORGE Selected Encounter This section includes the information on record at [place] for the Encounter. Date/Time Encounter Type Encounter Description Reason Provider Source Mar 15, 2021 09:31 Outpatient Encounter TELEPHONE TRIAGE AM IHE Encounter Template Text not used [...] 22, 2021 03:00 PM AMBULATORY - MEDICINE [facility] Jul 29, 2021 02:00 PM AMBULATORY MEDICINE [facility] Jul 29, 2021 03:30 PM AMBULATORY - MEDICINE [place] [facility] [facility] Jul 30, 2021 02:30 PM AMBULATORY - MEDICINE [place] [facility] [facility] Aug 02, 2021 02:00 PM AMBULATORY - MEDICINE [place] [facility] [facility] Social History: Smoking Status (Most current) [...] 09, 2019 01:46 PM VA-TOBACCO FORMER USER [place] [facility] [facility] Tobacco Use History This section includes a history of the smoking, or tobacco- related health factors, that were collected on or before the date of the Encounter. The data comes from the [place] facility where the Encounter took place. Date/Time Smoking Status/Tobacco Use Comment [facility] Dec 09, 2019 01:46 PM VA-TOBACCO QUIT 15 YRS OR [facility] [facility] October 03, 2018 12:57 PM VA-TOBACCO FORMER USER [facility] [facility] October 03, 2018 12:57 PM VA-TOBACCO QUIT 15 YRS OR [facility] [place] [facility] Dec 01, 2017 02:59 PM QUIT TOBACCO USE > 7 YEARS [place] [facility] [place] [facility] Nov 22, 2016 01:57 PM QUIT TOBACCO USE > 7 YEARS [place] [facility] [place] [facility] September 23, 2015 12:55 PM QUIT TOBACCO USE > 7 YEARS [place] [facility] [place] . [facility] Apr 20, 2009 10:40 AM QUIT TOBACCO USE > 7 YEARS [place] [facility] [place] [facility] Advance Directives: All historical and current [...] Apr 29, 2009 ADVANCE DIRECTIVE FRANKIE HU [facility] WST RN [facility] Encounter Notes: All associated encounter notes This section contains the clinical notes associated to the Encounter. Date/Time Encounter Note(s) Provider Source Mar 15, 2021 09:31 AM TELEPHONE ENCOUNTER NOTE: [facility]ESIS [facility]ILL [facility] LOC[facility] TITLE: VISN 1 CCC ACTION REQUIRED [facility] STANDARD TITLE: TELEPHONE ENCOUNTER NOTE DATE OF NOTE: MAR 15, 2021@09:31:11 ENTRY DATE: MAR 15, 2021@09:32:06 AUTHOR: GENESIS ONEILL EXP COSIGNER: URGENCY: STATUS: COMPLETED The patient, LAYO EATON ([id number]) called the call center. The following identifiers were used to verify th is patient: . SSN. Contact Type of call: SCHEDULING. Caller Response: ADM CALL RESOLVED Caller Area: [facility] Provider Info[facility] ([phone]) PACT: NO PACT 3 (Focus: Primary Care Only) Primary Care Provider: Kristopher Davila Medical Record Coder: Florecita Alvarez PHONE:[phone] Clinical Associate: Juancarlos Serrano [phone] Cream Separator Operator: Nikita Jones Clinical POC: Medical Record Coder Finn Alvarez i L PHONE:[phone] Administrative POC: Cream Separator Operator Nikita Jones Author: GENESIS ONEILL Comments: [place] would like to schedule an RTC primary ap pt. Treater unable to schedule within reasonable amt of time. can be reached at Evaluation/Management Code: HC PRO PHONE CALL 5- 10 MIN ([phone]). Starting at: 03/15/2021 @ 9:31:11 AM Ending at: 03/15/2021 @ 9:31:43 AM Length: 0 minutes. Chief Complaint: Not applicable to call. Class Code: Other specified counseling. 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
--- OUTSIDE RECORDS SUMMARY | 2022-02-16 09:33 | XMS_ITS | Continuity of Care Document ---
:1940 Author Organization [facility] Address [address] [place] [address], 3rd Floor, [address] [place] [address]- Care Team Providers Name Role Phone Not on Staff, PCP Primary Care Physician Unavailable Encounter [facility] Date(s): 09/09/20 - 10/09/20 [facility] [address] [facility], 3rd Floor, [address] [place] [id number]
--- OUTSIDE RECORDS SUMMARY | 2022-02-16 09:33 | XMS_ITS | Continuity of Care Document ---
:1940 Author Organization [facility] Address [address] [place] [address], 3rd Floor, [address] [place] [address]- Care Team Providers Name Role Phone Not on Staff, PCP Primary Care Physician Unavailable Encounter [facility] Date(s): 08/25/20 - 09/24/20 [facility] [address] [facility], 3rd Floor, [address] [place] [id number]
--- OUTSIDE RECORDS SUMMARY | 2022-02-16 09:33 | XMS_ITS | Continuity of Care Document ---
:1940 Author Organization [facility] Address [address] [place] [address], 3rd [facility], [address] [place] [address]- Care Team Providers Name Role Phone Not on Staff, PCP Primary Care Physician Unavailable Encounter [facility] Date(s): 08/25/20 - 10/08/20 [facility] [address] [place] [address], 3rd Floor, [address] [place] [id number] Attending Physician: Danielito Wadsworth MD Admitting Physician: Danielito Wadsworth MD Referring Physician: Marlon LARSEN, Dario Wells
--- OUTSIDE RECORDS SUMMARY | 2022-02-16 09:33 | XMS_ITS | Continuity of Care Document ---
:1940 Author Organization [facility] Address [address] [place] [address], 3rd Floor, [address] [place] [address]- Care Team Providers Name Role Phone Not on Staff, PCP Primary Care Physician Unavailable Encounter [facility] Date(s): 09/08/20 - 10/08/20 [facility] [address] [facility], 3rd Floor, [address] [place] [id number] [[email or web address]]
--- OUTSIDE RECORDS SUMMARY | 2022-02-16 09:33 | XMS_ITS | Encounter Summary ---
:1940 Author Organization [facility] Address [address] [place] [address] Support Name Relationship Address Phone ADAM EATON Unavailable [address] [place] [address] ADAM EATON Unavailable [address] [place] [address] Insurance Providers: All historical and current Section [...] Calles [place] MEDICARE MCR May [id number] [phone] ANGELIA StollAlly PATIENT [facility] (WNR) [facility] (WNR) 2017 [id number] CORNELIUS Selected Encounter This section includes the information on record at [place] for the Encounter. Date/Time Encounter Type Encounter Reason Provider Source Description Oct 19, 2021 OFFICE O/P EST PRIMARY ICD-10-CM Z23 JAYE SORTO 03:00 PM MINIMAL PROB CARE/MEDICINE Encounter for AUTUMN F immunization with Provider Comments: Encounter for immunization (ICD-10-CM Z23.) IHE Encounter Template Text not used by [place] Assessments - Encounter Diagnoses This section includes the primary and secondary diagnoses documented for the Encounter. Date/Time Primary/Secondary Diagnosis Name Provider Source Diagnosis Nov 04, 2021 PRIMARY Encounter for JOHANNE ESTRADA [place]STR N 02:47 PM immunization [place] [facility] Vital Signs: All taken on the encounter date This section contains inpatient and outpatient Vital Signs collected on the date of the Encounter. Date/Time Temperature Pulse Blood Respiratory SP02 Pain Height Weight Edgar dy Source Pressure Rate Mass Index Oct 19, 97.4 F 63 136/70 16 /min 98 % 215 lb 36 [place] 2021 03:06 /min mm[Hg] [place] PM [place] [facility] Immunizations: All administered on the encounter date This section contains immunizations associated to the Encounter. Immunization Series Date Issued Reaction Comments ZOSTER RECOMBINANT 2 Oct 19, 2021 Social History: Smoking Status (Most current) [...] took place. Date/Time Current Smoking Status Comment [facility] Jul 22, 2021 03:00 PM VA-TOBACCO FORMER USER [facility] [place] [facility] Tobacco Use History This section includes a history of the smoking, or tobacco- related health factors, that were collected on or before the date of the Encounter. The data comes from the [place] facility where the Encounter took place. Date/Time Smoking Status/Tobacco Use Comment [facility] Jul 22, 2021 03:00 PM VA-TOBACCO QUIT 15 YRS OR [facility] [place] [place] [facility] Dec 09, 2019 01:46 PM VA-TOBACCO FORMER USER [facility] [facility] Dec 09, 2019 01:46 PM VA-TOBACCO QUIT 15 YRS OR [facility] [place] [facility] October 03, 2018 12:57 PM VA-TOBACCO FORMER USER [facility] [facility] October 03, 2018 12:57 PM VA-TOBACCO QUIT 15 YRS OR [facility] [place] [facility] Dec 01, 2017 02:59 PM QUIT TOBACCO USE > 7 YEARS [place] [facility] [place] A[place] [facility] Nov 22, 2016 01:57 PM QUIT TOBACCO USE > 7 YEARS [facility] [place] A[place] [facility] September 23, 2015 12:55 PM QUIT TOBACCO USE > 7 YEARS VA [facility] [place] . [facility] Apr 20, 2009 10:40 AM QUIT TOBACCO USE > 7 YEARS VA [facility] [place] [facility] Advance Directives: All historical and current [...] Apr 29, 2009 ADVANCE DIRECTIVE MAYTEFRANKIE Cedeno [place] [facility] Encounter Notes: All associated encounter notes This section contains the clinical notes associated to the Encounter. Date/Time Encounter Note(s) Provider Source Oct 19, 2021 03:18 PREVENTIVE MEDICINE NURSING NOTE: [facility] LOC[facility] TITLE: CLINICAL REMINDERS/NURSING [place] [facility] STANDARD TITLE: PREVENTIVE MEDICINE NURSING NOTE DATE OF NOTE: OCT 19, 2021@15:18 ENTRY DATE: OCT 19, 2021@15:18:25 AUTHOR: JOSIAS STYLES EXP COSIGNER: URGENCY: STATUS: COMPLETED Herpes Zoster (Shingles) Vaccine: The patient received recombinant zoster vaccine (RZV) 0.5 ml IM in Left deltoid. Mobile Home Lot Utility Worker: ELVPHD Lot#s and Expiration Date: [email or web address] * [id number] Administered by protocol/policy Complications: None /es/ JOSIAS STYLES LPN Signed: 10/19/2021 15:19
--- OUTSIDE RECORDS SUMMARY | 2022-02-16 09:33 | XMS_ITS | Continuity of Care Document ---
:1940 Author Organization [facility] Address [address] [place] [address], 3rd Floor, [address] [place] [address]- Care Team Providers Name Role Phone Not on Staff, PCP Primary Care Physician Unavailable Encounter [facility] Date(s): 09/08/20 - 10/08/20 [facility] [address] [facility], 3rd Floor, [address] [place] [id number]
--- OUTSIDE RECORDS SUMMARY | 2022-02-16 09:33 | XMS_ITS | Continuity of Care Document ---
:1940 Author Organization [facility] Address [address] [place] [address], 3rd Floor, [address] [place] [address]- Care Team Providers Name Role Phone Not on Staff, PCP Primary Care Physician Unavailable Encounter [facility] Date(s): 10/06/20 - 11/05/20 [facility] [address] [place] [address], 3rd Floor, [address] [place] [id number] Attending Physician: Deonna Day Admitting Physician: Deonna Day Referring Physician: Deonna Day
[2022-02-16 09:55] LABS: MANUAL DIFF FLAG NO
[2022-02-16 09:57] LABS: Appearance Urine Clear; Color Urine Yellow; Glucose Urine UA Negative (Negative); Leukocyte Esterase Urine Moderate (2+) (Negative); Nitrite Urine Negative (Negative); PH 6.5 (5.0-9.0); UMIC TRIGGER UACC YES; Urine Blood Negative (Negative); Urine Ketones Negative (Negative); Urine Protein Negative (Neg-Trace)
[2022-02-16 09:57] LABS: Basophils Percent Auto 0.2 % (0-2); Eosinophils Absolute Auto 0.1 X10*3/uL (0.0-0.4); Eosinophils Percent Auto 0.6 % (0-4); Hemoglobin 15.2 g/dl (14.0-18.0); Imm Gran Abs Auto 0.05 X10*3/uL (0.00-0.03); Imm Gran Pct Auto 0.5 % (0.0-0.4); Lymphocytes Absolute Auto 0.7 X10*3/uL (1.2-4.9); Lymphocytes Percent Auto 6.9 % (20-40); Mean Corpuscular HGB Conc 36.2 g/dl (31.0-36.0); Mean Corpuscular Hemoglobin 32.5 pg (27.0-33.0); Mean Corpuscular Volume 89.9 fL (80.0-98.0); Mean Platelet Volume 10.7 fL (9.4-12.4); Monocytes Absolute Auto 0.8 X10*3/uL (0.1-1.2); Neutrophils Percent Auto 83.8 % (45-73); Platelet Count 160 X10*3/uL (160-400); Red Blood Count 4.67 X10*6/uL (4.60-5.80); White Blood Count 9.6 X10*3/uL (4.8-10.8)
[2022-02-16 10:02] LABS: Bacteria Urine None Seen (None Seen); Hyaline Casts Urine 0-2 /LPF (0-2); RBC Urine 0-2 /HPF (0-2); Squamous Epithelial Cell Urine 0-2 /HPF (0-2); UACC Culture Trigger YES
[2022-02-16 10:05] LABS: Prothrombin Time 11.8 SEC (10.0-13.1)
[2022-02-16 10:08] LABS: Partial Thromboplastin Time 30.9 SEC (26.0-36.4)
[2022-02-16 10:15] LABS: Alanine Aminotransferase 10 U/L (0-40); Albumin Level 4.2 g/dL (3.5-5.0); Alkaline Phosphatase 75 U/L (39-117); Anion Gap 15 (12-20); Aspartate Amino Transferase 14 U/L (5-37); Bilirubin Total 1.4 mg/dL (0.0-1.0); Blood Urea Nitrogen 15 mg/dL (9-16); Calcium 8.6 mg/dL (8.4-10.2); Carbon Dioxide 23 mmol/L (22-29); Chloride 107 mmol/L (96-108); Creatinine Clr Calc Pharmacy 54.6; Estimated Glomerular Filt Rate > 60; Glucose Random 118 mg/dL (60-115); Potassium 3.6 mmol/L (3.3-5.1); Sodium 141 mmol/L (135-145); Total Protein 6.1 g/dL (6.5-8.0)
[2022-02-16 10:21] LABS: Troponin-I High Sensitivity 6.9 ng/L (<3.5-35.0)
[2022-02-16] MEDS: 0.9 % Sodium Chloride 1,000 ML 999 ML IV (10:36)
[2022-02-16 10:40] LABS: COVID-19 Test Negative (Negative); IDNOW Serial# 16C4AD1C
[2022-02-16] MEDS: Meclizine HCl 25 MG TABLET 50 MG PO (12:39)
[2022-02-16 13:11] LABS: Troponin-I High Sensitivity 9.7 ng/L (<3.5-35.0)
--- NOTE | 2022-02-16 14:10 | PC.NURSE ---
STATES FEELING DIZINESS, NOT IMPROVED AFTER MEDICATION LORIE MOSCOSO
[2022-02-16] MEDS: diazePAM 2 MG TABLET PO (15:55)
== END 2022-02-16 18:40 | disposition home or self-care (01) ==
PROVIDERS: Physician Assistant; Emergency Provider Emergency Medicine; PCP Internal Medicine Endocrinology, Diabetes & Metabolism
DX: R42 Dizziness and giddiness (principal); N39.0 Urinary tract infection, site not specified; R51.9 Headache, unspecified; Z20.822 Contact with and (suspected) exposure to COVID-19; Z79.899 Other long term (current) drug therapy
CPT/HCPCS: 36415; 70450; 70551; 80053; 81001; 81003; 83735; 84484; 85025; 85610; 85730; 87086; 87635; 93005; 96360; 96361; 99284; 99285

== ENCOUNTER 2023-02-28 20:28 | Inpatient (IN) | payer OTHER, MEDICARE, SELFPAY ==
--- NOTE | ~2023-02-28 | CT_ITS ---
EXAMINATION: CT CHEST WITHOUT CONTRAST CLINICAL INFORMATION: Shortness of breath. COMPARISON: None available. TECHNIQUE: Multidetector volumetric CT imaging of the chest was done. Axial MIP volume rendering provided. Sagittal and coronal reformatted images were obtained. This CT examination was performed using dose optimization techniques as appropriate, variously including the following: *Automated exposure control *Adjustment of mA and/or kV according to patient size (this includes techniques or standardized protocols for targeted exams where dose is matched to indication/reason for exam; i.e. extremities or head) *Use of iterative reconstruction technique DLP: 198 mGy-cm FINDINGS: LUNGS: Mild centrilobular emphysema. 9 mm nodule right middle lobe on image 37 of series 4. Bilateral lower lobe consolidation. Central airways are patent. MEDIASTINUM: 2.4 cm hypodense nodule right thyroid lobe. No bulky axillary, hilar or mediastinal lymphadenopathy. There is fluid in the superior pericardial recess. Ascending thoracic aorta measures 4.1 x 4.0 cm. Heart is enlarged. Trace pericardial effusion. CORONARY ARTERY CALCIFICATION: Mild. PLEURA: Trace right pleural effusion. UPPER ABDOMEN: Thickening of the adrenal glands. OSSEOUS STRUCTURES: No destructive bone lesions. CT/CT chest wo IV con IMPRESSION: 9 mm right middle lobe pulmonary nodule. Follow-up chest CT in 3 months is advised. Trace right pleural effusion. Bilateral lower lobe consolidation. This may represent pneumonia. Aspiration may be considered. Dilated ascending thoracic aorta. 2.4 cm hypodense right thyroid nodule.
--- NOTE | ~2023-02-28 | XR_ITS ---
EXAMINATION: XR CHEST CLINICAL INFORMATION: Shortness of breath rule out CHF, pneumonia COMPARISON: 01/25/2016 TECHNIQUE: Frontal view of the chest was obtained. FINDINGS: The lungs are hypoinflated. There is mild cardiac enlargement. There is no evidence of gross CHF. Left basilar atelectasis is present. No consolidations or pleural effusions. XR/XR chest 1V IMPRESSION: Hypoinflated lungs with left basilar atelectasis.
--- NOTE | ~2023-02-28 | CT_ITS ---
EXAMINATION: CT HEAD WITHOUT CONTRAST CLINICAL INFORMATION: Encephalopathy COMPARISON: Previous head CT and brain MRI February 2022 TECHNIQUE: Contiguous axial imaging was performed from the skull base to vertex without intravenous administration of contrast. This CT examination was performed using dose optimization techniques as appropriate, variously including the following: *Automated exposure control *Adjustment of mA and/or kV according to patient size (this includes techniques or standardized protocols for targeted exams where dose is matched to indication/reason for exam; i.e. extremities or head) *Use of iterative reconstruction technique DLP: 827 mGy-cm FINDINGS: There is no evidence of an extra-axial collection. There is no evidence of intra or extra-axial hemorrhage. Ventricles and extra-axial CSF spaces are slightly prominent suggestive of mild generalized atrophy. There is nonspecific periventricular white matter disease. No mass, mass effect or infarct. There is a left EDDIE or Acom partially calcified aneurysm that appears unchanged measuring 5 x 5 x 7 mm. No skull fracture. The paranasal sinuses, mastoid air cells and middle ears are clear. CT/CT head/brain wo IV con IMPRESSION: No acute findings. Mild generalized atrophy and nonspecific periventricular white matter disease. Stable appearing left Acom/EDDIE aneurysm.
--- NOTE | ~2023-02-28 | XR_ITS ---
EXAMINATION: XR CHEST CLINICAL INFORMATION: SOB COMPARISON: None available. TECHNIQUE: Frontal view of the chest was obtained. FINDINGS: The lungs are hypoexpanded and clear of acute process. The heart size and pulmonary vascularity is normal. No gross bony abnormalities seen. XR/XR chest 1V IMPRESSION: Hypoexpanded lungs without acute process.
[2023-02-28 20:36] VITALS: BP 127/71; BP 132/87; PULSE 91; PULSE 95; RESP 18; TEMP 37.2; O2SAT 94; O2SAT 98; BMI 33.0
--- NOTE | 2023-02-28 20:43 | ED_ITS ---
HPI - Syncope General Chief Complaint: Dizziness Stated Complaint: Syncope Time Seen by Provider: 02/28/23 20:42 Source: patient Mode of arrival: EMS Limitations: no limitations History of Present Illness HPI narrative: Patient with history of hypertension vertigo been feeling increased weakness all day today no chills no fever , patient laid himself down as could not ambulate son called him but patient could not pick up attendant the phone as he was feeling very weak denies any fever or chills no urinary symptoms patient has cystoscopy about a week ago for BPH no cough no shortness of breath on arrival patient temperature was 99 degrees Related Data Previous Rx's Medication Instructions Recorded meclizine 25 mg tablet 25 mg PO DAILY PRN dizziness #14 08/24/20 tabs cefuroxime axetil 250 mg tablet 250 mg PO Q12H 7 days #14 tabs 02/16/22 Allergies Allergy/AdvReac Type Severity Reaction Status Date / Time No Known Allergies Allergy Verified 02/28/23 20:44 Review of Systems 2 Review of Systems: Yes all other systems are reviewed and are negative [facility] [place] Past Medical History Medical History Graves disease Hypertension Vertigo Dizziness Social History Social History Alcohol intake: former Smoked in Last 30 Days: No Use of substances other than those prescribed or required for medical reasons: No Advance Directives: No Advance Directives Information Provided: No Physical Exam 2 Vital Signs: Vital Signs: Last Vital Signs Temp 99.8 F 03/01/23 00:43 Pulse 76 03/01/23 01:28 Resp 16 03/01/23 01:28 BP 119/57 L 03/01/23 01:28 Pulse Ox 93 03/01/23 01:28 O2 Del Method Room Air 03/01/23 01:28 BMI result Body Mass Index 33.0 Appearance: Alert. Oriented X3. No acute distress. Eyes: PERRLA, No Nystagmus ENT: Pharynx normal. Oral Mucosa moist Neck: Normal inspection. Neck supple. CVS: Normal heart rate and rhythm. Pulses normal. Respiratory: No respiratory distress. Equal air entry bilateral, no wheezing/rales/rhonchi Abdomen: Soft and nontender. Bowel sounds are present, no mass palpable, no CVA tenderness rectal: Enlarged prostate nontender Skin: Skin warm and dry. Normal skin color. Normal skin turgor. Extremities: No lower extremity edema. No calf tenderness Neuro: Oriented X 3. No motor deficit. No sensory deficit.No cerebellar signs , cranial nerves II-XII intact Medications Administered Generic Name Dose Route Start Last Admin Trade Name Freq PRN Reason Stop Dose Admin Enoxaparin Sodium 40 mg 03/01/23 00:30 03/01/23 00:33 Enoxaparin Sodium 40 Mg/0.4 Ml Syringe SUBCUT 40 mg Q24H KARLENE Administration Discontinued Medications Generic Name Dose Route Start Last Admin Trade Name Freq PRN Reason Stop Dose Admin Acetaminophen 650 mg 03/01/23 00:09 03/01/23 00:34 Acetaminophen 325 Mg Tablet PO 03/01/23 00:10 650 mg ONCE ONE Administration Sodium Chloride 1,000 mls @ 999 mls/hr 02/28/23 21:07 02/28/23 23:44 Ns IV 02/28/23 22:07 Infused .Q1H1M ONE Infusion Ceftriaxone Sodium 1 gm/ 50 mls @ 100 mls/hr 02/28/23 23:59 03/01/23 00:34 Sodium Chloride IV 03/01/23 00:28 100 mls/hr ONCE ONE Administration Sodium Chloride 1,000 mls @ 999 mls/hr 03/01/23 00:13 03/01/23 00:34 Ns IV 03/01/23 01:13 999 mls/hr .Q1H1M ONE Administration Medical Decision Making Medical Decision Making [facility] Narrative: Patient with increased weekend acute new onset low-grade temperature recent cystoscopy UA showed wbc's has leukocytosis left shift likely patient is bacteremic as a cause for weakness start and admit for further evaluation Differential Diagnosis Differential Diagnoses: The differential diagnosis associated with the presentation includes SADE/prostatitis/bacteremia/sepsis Admission/Observation Consideration of admission/observation: Escalation of care including admission/observation considered Consult Healthcare Provider Management of the patient was discussed with: Hospitalist Lab Data [facility] Lab Attestation statement: I reviewed the patient's lab results. 02/28/23 21:57 02/28/23 21:57 Labs: Lab Results 02/28/23 02/28/23 02/28/23 Range/Units 20:59 20:59 20:59 WBC (4.8-10.8) X10*3/uL RBC (4.60-5.80) X10*6/uL Hgb (14.0-18.0) g/dl Hct (42.0-52.0) % MCV (80.0-98.0) fL MCH (27.0-33.0) pg MCHC (31.0-36.0) g/dl RDW (11.0-16.0) % Plt Count (160-400) X10*3/uL MPV (9.4-12.4) fL Immature Gran % (Auto) (0.0-0.4) % Neut % (Auto) (45-73) % Lymph % (Auto) (20-40) % [place] % (Auto) (2-11) % Eos % (Auto) (0-4) % Baso % (Auto) (0-2) % Lymph # (Auto) (1.2-4.9) X10*3/uL [place] # (Auto) (0.1-1.2) X10*3/uL Eos # (Auto) (0.0-0.4) X10*3/uL Baso # (Auto) (0.0-0.2) X10*3/uL Abs Immat Gran (auto) (0.00-0.03) X10*3/uL Absolute Neuts (auto) (2.0-8.3) x10*3/uL Absolute Nucleated RBC (0.0-0.012) X10*3/uL Nucleated RBC % (auto) (0.0-0.2) /100WBC Smear Tech's Comments Sodium (135-145) mmol/L Potassium (3.3-5.1) mmol/L Chloride (96-108) mmol/L Carbon Dioxide (22-29) mmol/L Anion Gap (12-20) BUN (9-16) mg/dL Creatinine (0.5-1.4) mg/dL Estim Creat Clear Calc Estimated GFR Random Glucose (60-115) mg/dL Calcium (8.4-10.2) mg/dL Magnesium (1.6-2.6) mg/dL Total Bilirubin (0.0-1.0) mg/dL AST (5-37) U/L ALT (0-40) U/L Alkaline Phosphatase (39-117) U/L Troponin I High Sens (<3.5-35.0) ng/L Total Protein (6.5-8.0) g/dL Albumin (3.5-5.0) g/dL Urine Color [place] A Cancelled Urine Appearance Turbid Cancelled Urine pH 5.0 (5.0-9.0) Ur Specific [place] (1.005-1.025) Urine Protein (Neg-Trace) mg/dL Urine Glucose (UA) (Negative) mg/dL Urine Ketones (Negative) mg/dL Urine Blood (Negative) Urine Nitrite (Negative) Ur Leukocyte Esterase (Negative) Urine RBC (0-2) /HPF Urine WBC (0-5) /HPF Urine WBC Clumps Ur Squamous Epith Cells (0-2) /HPF Ur Transition Epith Cell Ur Renal Epithelial Cell Calcium Oxalate Crystal Leucine Crystals Cystine Crystals Tyrosine Crystals Other Crystals Urine Bacteria (None Seen) Urine Parasites Bilirubin Casts Epithelial Casts Fatty Casts Hyaline Casts (0-2) /LPF Granular Casts Waxy Casts Broad Casts RBC Casts WBC Casts Other Casts Urine Trichomonas Urine Yeast COVID-19 (ANKUR) (Negative) COVID-19 Clin Com 02/28/23 02/28/23 02/28/23 Range/Units 20:59 20:59 20:59 WBC (4.8-10.8) X10*3/uL RBC (4.60-5.80) X10*6/uL Hgb (14.0-18.0) g/dl Hct (42.0-52.0) % MCV (80.0-98.0) fL MCH (27.0-33.0) pg MCHC (31.0-36.0) g/dl RDW (11.0-16.0) % Plt Count (160-400) X10*3/uL MPV (9.4-12.4) fL Immature Gran % (Auto) (0.0-0.4) % Neut % (Auto) (45-73) % Lymph % (Auto) (20-40) % [place] % (Auto) (2-11) % Eos % (Auto) (0-4) % Baso % (Auto) (0-2) % Lymph # (Auto) (1.2-4.9) X10*3/uL [place] # (Auto) (0.1-1.2) X10*3/uL Eos # (Auto) (0.0-0.4) X10*3/uL Baso # (Auto) (0.0-0.2) X10*3/uL Abs Immat Gran (auto) (0.00-0.03) X10*3/uL Absolute Neuts (auto) (2.0-8.3) x10*3/uL Absolute Nucleated RBC (0.0-0.012) X10*3/uL Nucleated RBC % (auto) (0.0-0.2) /100WBC Smear Tech's Comments Sodium (135-145) mmol/L Potassium (3.3-5.1) mmol/L Chloride (96-108) mmol/L Carbon Dioxide (22-29) mmol/L Anion Gap (12-20) BUN (9-16) mg/dL Creatinine (0.5-1.4) mg/dL Estim Creat Clear Calc Estimated GFR Random Glucose (60-115) mg/dL Calcium (8.4-10.2) mg/dL Magnesium (1.6-2.6) mg/dL Total Bilirubin (0.0-1.0) mg/dL AST (5-37) U/L ALT (0-40) U/L Alkaline Phosphatase (39-117) U/L Troponin I High Sens (<3.5-35.0) ng/L Total Protein (6.5-8.0) g/dL Albumin (3.5-5.0) g/dL Urine Color Urine Appearance Urine pH Cancelled (5.0-9.0) Ur Specific [place] 1.020 Cancelled (1.005-1.025) Urine Protein 300 (3+) H Cancelled (Neg-Trace) mg/dL Urine Glucose (UA) Negative (Negative) mg/dL Urine Ketones (Negative) mg/dL Urine Blood (Negative) Urine Nitrite (Negative) Ur Leukocyte Esterase (Negative) Urine RBC (0-2) /HPF Urine WBC (0-5) /HPF Urine WBC Clumps Ur Squamous Epith Cells (0-2) /HPF Ur Transition Epith Cell Ur Renal Epithelial Cell Calcium Oxalate Crystal Leucine Crystals Cystine Crystals Tyrosine Crystals Other Crystals Urine Bacteria (None Seen) Urine Parasites Bilirubin Casts Epithelial Casts Fatty Casts Hyaline Casts (0-2) /LPF Granular Casts Waxy Casts Broad Casts RBC Casts WBC Casts Other Casts Urine Trichomonas Urine Yeast COVID-19 (ANKUR) (Negative) COVID-19 Clin Com 02/28/23 02/28/23 02/28/23 Range/Units 20:59 20:59 20:59 WBC (4.8-10.8) X10*3/uL RBC (4.60-5.80) X10*6/uL Hgb (14.0-18.0) g/dl Hct (42.0-52.0) % MCV (80.0-98.0) fL MCH (27.0-33.0) pg MCHC (31.0-36.0) g/dl RDW (11.0-16.0) % Plt Count (160-400) X10*3/uL MPV (9.4-12.4) fL Immature Gran % (Auto) (0.0-0.4) % Neut % (Auto) (45-73) % Lymph % (Auto) (20-40) % [place] % (Auto) (2-11) % Eos % (Auto) (0-4) % Baso % (Auto) (0-2) % Lymph # (Auto) (1.2-4.9) X10*3/uL [place] # (Auto) (0.1-1.2) X10*3/uL Eos # (Auto) (0.0-0.4) X10*3/uL Baso # (Auto) (0.0-0.2) X10*3/uL Abs Immat Gran (auto) (0.00-0.03) X10*3/uL Absolute Neuts (auto) (2.0-8.3) x10*3/uL Absolute Nucleated RBC (0.0-0.012) X10*3/uL Nucleated RBC % (auto) (0.0-0.2) /100WBC Smear Tech's Comments Sodium (135-145) mmol/L Potassium (3.3-5.1) mmol/L Chloride (96-108) mmol/L Carbon Dioxide (22-29) mmol/L Anion Gap (12-20) BUN (9-16) mg/dL Creatinine (0.5-1.4) mg/dL Estim Creat Clear Calc Estimated GFR Random Glucose (60-115) mg/dL Calcium (8.4-10.2) mg/dL Magnesium (1.6-2.6) mg/dL Total Bilirubin (0.0-1.0) mg/dL AST (5-37) U/L ALT (0-40) U/L Alkaline Phosphatase (39-117) U/L Troponin I High Sens (<3.5-35.0) ng/L Total Protein (6.5-8.0) g/dL Albumin (3.5-5.0) g/dL Urine Color Urine Appearance Urine pH (5.0-9.0) Ur Specific [place] (1.005-1.025) Urine Protein (Neg-Trace) mg/dL Urine Glucose (UA) Cancelled (Negative) mg/dL Urine Ketones Negative Cancelled (Negative) mg/dL Urine Blood Large (3+) H Cancelled (Negative) Urine Nitrite Positive H (Negative) Ur Leukocyte Esterase (Negative) Urine RBC (0-2) /HPF Urine WBC (0-5) /HPF Urine WBC Clumps Ur Squamous Epith Cells (0-2) /HPF Ur Transition Epith Cell Ur Renal Epithelial Cell Calcium Oxalate Crystal Leucine Crystals Cystine Crystals Tyrosine Crystals Other Crystals Urine Bacteria (None Seen) Urine Parasites Bilirubin Casts Epithelial Casts Fatty Casts Hyaline Casts (0-2) /LPF Granular Casts Waxy Casts Broad Casts RBC Casts WBC Casts Other Casts Urine Trichomonas Urine Yeast COVID-19 (ANKUR) (Negative) COVID-19 Clin Com 02/28/23 02/28/23 02/28/23 Range/Units 20:59 20:59 20:59 WBC (4.8-10.8) X10*3/uL RBC (4.60-5.80) X10*6/uL Hgb (14.0-18.0) g/dl Hct (42.0-52.0) % MCV (80.0-98.0) fL MCH (27.0-33.0) pg MCHC (31.0-36.0) g/dl RDW (11.0-16.0) % Plt Count (160-400) X10*3/uL MPV (9.4-12.4) fL Immature Gran % (Auto) (0.0-0.4) % Neut % (Auto) (45-73) % Lymph % (Auto) (20-40) % [place] % (Auto) (2-11) % Eos % (Auto) (0-4) % Baso % (Auto) (0-2) % Lymph # (Auto) (1.2-4.9) X10*3/uL [place] # (Auto) (0.1-1.2) X10*3/uL Eos # (Auto) (0.0-0.4) X10*3/uL Baso # (Auto) (0.0-0.2) X10*3/uL Abs Immat Gran (auto) (0.00-0.03) X10*3/uL Absolute Neuts (auto) (2.0-8.3) x10*3/uL Absolute Nucleated RBC (0.0-0.012) X10*3/uL Nucleated RBC % (auto) (0.0-0.2) /100WBC Smear Tech's Comments Sodium (135-145) mmol/L Potassium (3.3-5.1) mmol/L Chloride (96-108) mmol/L Carbon Dioxide (22-29) mmol/L Anion Gap (12-20) BUN (9-16) mg/dL Creatinine (0.5-1.4) mg/dL Estim Creat Clear Calc Estimated GFR Random Glucose (60-115) mg/dL Calcium (8.4-10.2) mg/dL Magnesium (1.6-2.6) mg/dL Total Bilirubin (0.0-1.0) mg/dL AST (5-37) U/L ALT (0-40) U/L Alkaline Phosphatase (39-117) U/L Troponin I High Sens (<3.5-35.0) ng/L Total Protein (6.5-8.0) g/dL Albumin (3.5-5.0) g/dL Urine Color Urine Appearance Urine pH (5.0-9.0) Ur Specific [place] (1.005-1.025) Urine Protein (Neg-Trace) mg/dL Urine Glucose (UA) (Negative) mg/dL Urine Ketones (Negative) mg/dL Urine Blood (Negative) Urine Nitrite Cancelled (Negative) Ur Leukocyte Esterase Large (3+) H Cancelled (Negative) Urine RBC >20 H Cancelled (0-2) /HPF Urine WBC >50 H (0-5) /HPF Urine WBC Clumps Ur Squamous Epith Cells (0-2) /HPF Ur Transition Epith Cell Ur Renal Epithelial Cell Calcium Oxalate Crystal Leucine Crystals Cystine Crystals Tyrosine Crystals Other Crystals Urine Bacteria (None Seen) Urine Parasites Bilirubin Casts Epithelial Casts Fatty Casts Hyaline Casts (0-2) /LPF Granular Casts Waxy Casts Broad Casts RBC Casts WBC Casts Other Casts Urine Trichomonas Urine Yeast COVID-19 (ANKUR) (Negative) COVID-19 Clin Com 02/28/23 02/28/23 02/28/23 Range/Units 20:59 20:59 20:59 WBC (4.8-10.8) X10*3/uL RBC (4.60-5.80) X10*6/uL Hgb (14.0-18.0) g/dl Hct (42.0-52.0) % MCV (80.0-98.0) fL MCH (27.0-33.0) pg MCHC (31.0-36.0) g/dl RDW (11.0-16.0) % Plt Count (160-400) X10*3/uL MPV (9.4-12.4) fL Immature Gran % (Auto) (0.0-0.4) % Neut % (Auto) (45-73) % Lymph % (Auto) (20-40) % [place] % (Auto) (2-11) % Eos % (Auto) (0-4) % Baso % (Auto) (0-2) % Lymph # (Auto) (1.2-4.9) X10*3/uL [place] # (Auto) (0.1-1.2) X10*3/uL Eos # (Auto) (0.0-0.4) X10*3/uL Baso # (Auto) (0.0-0.2) X10*3/uL Abs Immat Gran (auto) (0.00-0.03) X10*3/uL Absolute Neuts (auto) (2.0-8.3) x10*3/uL Absolute Nucleated RBC (0.0-0.012) X10*3/uL Nucleated RBC % (auto) (0.0-0.2) /100WBC Smear Tech's Comments Sodium (135-145) mmol/L Potassium (3.3-5.1) mmol/L Chloride (96-108) mmol/L Carbon Dioxide (22-29) mmol/L Anion Gap (12-20) BUN (9-16) mg/dL Creatinine (0.5-1.4) mg/dL Estim Creat Clear Calc Estimated GFR Random Glucose (60-115) mg/dL Calcium (8.4-10.2) mg/dL Magnesium (1.6-2.6) mg/dL Total Bilirubin (0.0-1.0) mg/dL AST (5-37) U/L ALT (0-40) U/L Alkaline Phosphatase (39-117) U/L Troponin I High Sens (<3.5-35.0) ng/L Total Protein (6.5-8.0) g/dL Albumin (3.5-5.0) g/dL Urine Color Urine Appearance Urine pH (5.0-9.0) Ur Specific [place] (1.005-1.025) Urine Protein (Neg-Trace) mg/dL Urine Glucose (UA) (Negative) mg/dL Urine Ketones (Negative) mg/dL Urine Blood (Negative) Urine Nitrite (Negative) Ur Leukocyte Esterase (Negative) Urine RBC (0-2) /HPF Urine WBC Cancelled (0-5) /HPF Urine WBC Clumps Cancelled Ur Squamous Epith Cells 0-2 Cancelled (0-2) /HPF Ur Transition Epith Cell Cancelled Ur Renal Epithelial Cell Cancelled Calcium Oxalate Crystal Cancelled Leucine Crystals Cancelled Cystine Crystals Cancelled Tyrosine Crystals Cancelled Other Crystals Cancelled Urine Bacteria 4+ Cancelled (None Seen) Urine Parasites Cancelled Bilirubin Casts Cancelled Epithelial Casts Cancelled Fatty Casts Cancelled Hyaline Casts >20 (0-2) /LPF Granular Casts Waxy Casts Broad Casts RBC Casts WBC Casts Other Casts Urine Trichomonas Urine Yeast COVID-19 (ANKUR) (Negative) COVID-19 Clin Com 10/17/23 10/17/23 Range/Units 20:59 21:57 WBC 26.3 H (4.8-10.8) X10*3/uL RBC 4.51 L (4.60-5.80) X10*6/uL Hgb 14.7 (14.0-18.0) g/dl Hct 41.3 L (42.0-52.0) % MCV 91.6 (80.0-98.0) fL MCH 32.6 (27.0-33.0) pg MCHC 35.6 (31.0-36.0) g/dl RDW 14.3 (11.0-16.0) % Plt Count 137 L (160-400) X10*3/uL MPV 10.9 (9.4-12.4) fL Immature Gran % (Auto) 1.1 H (0.0-0.4) % Neut % (Auto) 91.5 H (45-73) % Lymph % (Auto) 0.7 L (20-40) % [place] % (Auto) 6.5 (2-11) % Eos % (Auto) 0.0 (0-4) % Baso % (Auto) 0.2 (0-2) % Lymph # (Auto) 0.2 L (1.2-4.9) X10*3/uL [place] # (Auto) 1.7 H (0.1-1.2) X10*3/uL Eos # (Auto) 0.0 (0.0-0.4) X10*3/uL Baso # (Auto) 0.1 (0.0-0.2) X10*3/uL Abs Immat Gran (auto) 0.30 H (0.00-0.03) X10*3/uL Absolute Neuts (auto) 24.1 H (2.0-8.3) x10*3/uL Absolute Nucleated RBC 0.000 (0.0-0.012) X10*3/uL Nucleated RBC % (auto) 0.0 (0.0-0.2) /100WBC Smear Tech's Comments VERIFIED Sodium 140 (135-145) mmol/L Potassium 3.7 (3.3-5.1) mmol/L Chloride 107 (96-108) mmol/L Carbon Dioxide 22 (22-29) mmol/L Anion Gap 15 (12-20) BUN 21 H (9-16) mg/dL Creatinine 1.17 (0.5-1.4) mg/dL Estim Creat Clear Calc 51.8 Estimated GFR 59 Random Glucose 166 H (60-115) mg/dL Calcium 8.7 (8.4-10.2) mg/dL Magnesium 2.2 (1.6-2.6) mg/dL Total Bilirubin 2.4 H (0.0-1.0) mg/dL AST 61 H (5-37) U/L ALT 17 (0-40) U/L Alkaline Phosphatase 81 (39-117) U/L Troponin I High Sens 30.1 (<3.5-35.0) ng/L Total Protein 6.2 L (6.5-8.0) g/dL Albumin 4.0 (3.5-5.0) g/dL Urine Color Urine Appearance Urine pH (5.0-9.0) Ur Specific [place] (1.005-1.025) Urine Protein (Neg-Trace) mg/dL Urine Glucose (UA) (Negative) mg/dL Urine Ketones (Negative) mg/dL Urine Blood (Negative) Urine Nitrite (Negative) Ur Leukocyte Esterase (Negative) Urine RBC (0-2) /HPF Urine WBC (0-5) /HPF Urine WBC Clumps Ur Squamous Epith Cells (0-2) /HPF Ur Transition Epith Cell Ur Renal Epithelial Cell Calcium Oxalate Crystal Leucine Crystals Cystine Crystals Tyrosine Crystals Other Crystals Urine Bacteria (None Seen) Urine Parasites Bilirubin Casts Epithelial Casts Fatty Casts Hyaline Casts Cancelled (0-2) /LPF Granular Casts Cancelled Waxy Casts Cancelled Broad Casts Cancelled RBC Casts Cancelled WBC Casts Cancelled Other Casts Cancelled Urine Trichomonas Cancelled Urine Yeast Cancelled COVID-19 (ANKUR) Negative (Negative) COVID-19 Clin Com See Note Critical Care Time Critical Care Time Critical Care Time: Yes Total Critical Care Time: 35 Attestation: The patient was critically ill with a high probability of imminent or life threatening deterioration. I spent greater than 40 minutes of discontinuous time evaluating the patient,delivering critical care at the bedside, discussing and evaluating pertinent data with consultants. Critical care time does not include time spent performing separately billable procedures or teaching. Total time spent performing critical care was35 minutes. Discharge Plan Discharge Clinical Impression: Acute weakness, UTI (urinary tract infection), Sepsis Patient Disposition: Admitted As Inpatient
[2023-02-28 20:59] VITALS: TEMP 37.7
--- NOTE | 2023-02-28 21:07 | ECG_ITS ---
Test Reason : DIZZYNESS Blood Pressure : / mmHG Vent. Rate : 084 BPM Atrial Rate : 084 BPM P-R Int : 170 ms QRS Dur : 082 ms QT Int : 444 ms P-R-T Axes : 025 -21 -10 degrees QTc Int : 524 ms Normal sinus rhythm Minimal voltage criteria for LVH, may be normal variant ( R in aVL ) Nonspecific ST abnormality Prolonged QT Abnormal ECG When compared with ECG of 16-FEB-2022 09:13, Heart rate has increased Referred By: Richmond Shepard Electronically Signed By:VINOD HOLLAND MD
[2023-02-28] MEDS: 0.9 % Sodium Chloride 1,000 ML 999 ML IV (21:10)
--- NOTE | 2023-02-28 21:10 | PC.NURSE ---
pt BIBA from home. pt reports feeling dizzy and having to lay down on the floor so he would not fall. pt son came to pt house where he found the pt and called ems. pt was alert and oriented when son found him. pt reports intermittent dizziness for one year. pt denies head strike, LOC and blood thinner. pt a&ox4, neuro assessment in tact, no visible wounds from fall noted. pt incontinent upon arrival, pt changed and cleaned up at this time. pt normal sinus on tele. provider at bedside discussing pt care. ems placed 20 in pt left AC.
[2023-02-28 21:58] VITALS: BP 134/74; PULSE 85
[2023-02-28 21:58] LABS: Appearance Urine Turbid; Bacteria Urine 4+ (None Seen); Color Urine Orange; Glucose Urine UA Negative (Negative); Hyaline Casts Urine >20 /LPF (0-2); Leukocyte Esterase Urine Large (3+) (Negative); Nitrite Urine Positive (Negative); RBC Urine >20 /HPF (0-2); Squamous Epithelial Cell Urine 0-2 /HPF (0-2); UACC Culture Trigger YES; UMIC TRIGGER UACC YES; Urine Blood Large (3+) (Negative); Urine Ketones Negative (Negative); Urine Protein 300 (3+) mg/dL (Neg-Trace); WBC Urine >50 /HPF (0-5)
[2023-02-28 21:59] VITALS: BP 154/70; PULSE 85
[2023-02-28 22:02] VITALS: BP 159/80; PULSE 88
[2023-02-28 22:14] VITALS: BP 157/83; PULSE 89; RESP 16; TEMP 36.8; O2SAT 98
--- NOTE | 2023-02-28 22:15 | MHC.EDTECH ---
ortho and ekg completed
--- NOTE | 2023-02-28 22:15 | MHC.EDTECH ---
PATIENT BLOOD DRAWN AND SENT TO LAB .
[2023-02-28 22:18] LABS: COVID-19 Test Negative (Negative); IDNOW Serial# 6674DD1D
[2023-02-28 22:19] LABS: Basophils Absolute Auto 0.1 X10*3/uL (0.0-0.2); Basophils Percent Auto 0.2 % (0-2); Hematocrit 41.3 % (42.0-52.0); Hemoglobin 14.7 g/dl (14.0-18.0); Imm Gran Pct Auto 1.1 % (0.0-0.4); Lymphocytes Absolute Auto 0.2 X10*3/uL (1.2-4.9); Lymphocytes Percent Auto 0.7 % (20-40); MANUAL DIFF FLAG SCAN; Mean Corpuscular HGB Conc 35.6 g/dl (31.0-36.0); Mean Corpuscular Hemoglobin 32.6 pg (27.0-33.0); Mean Corpuscular Volume 91.6 fL (80.0-98.0); Mean Platelet Volume 10.9 fL (9.4-12.4); Monocytes Absolute Auto 1.7 X10*3/uL (0.1-1.2); Monocytes Percent Auto 6.5 % (2-11); Neutrophils Absolute Auto 24.1 x10*3/uL (2.0-8.3); Neutrophils Percent Auto 91.5 % (45-73); Platelet Count 137 X10*3/uL (160-400); Red Blood Count 4.51 X10*6/uL (4.60-5.80); Red Cell Distribution Width 14.3 % (11.0-16.0); SCAN SMEAR FLAG 1; White Blood Count 26.3 X10*3/uL (4.8-10.8)
[2023-02-28 22:23] LABS: Alanine Aminotransferase 17 U/L (0-40); Alkaline Phosphatase 81 U/L (39-117); Anion Gap 15 (12-20); Aspartate Amino Transferase 61 U/L (5-37); Bilirubin Total 2.4 mg/dL (0.0-1.0); Blood Urea Nitrogen 21 mg/dL (9-16); Calcium 8.7 mg/dL (8.4-10.2); Carbon Dioxide 22 mmol/L (22-29); Chloride 107 mmol/L (96-108); Creatinine Clr Calc Pharmacy 51.8; Estimated Glomerular Filt Rate 59; Glucose Random 166 mg/dL (60-115); Magnesium 2.2 mg/dL (1.6-2.6); Potassium 3.7 mmol/L (3.3-5.1); Sodium 140 mmol/L (135-145); Total Protein 6.2 g/dL (6.5-8.0)
[2023-02-28 22:31] LABS: Troponin-I High Sensitivity 30.1 ng/L (<3.5-35.0)
[2023-02-28 22:50] LABS: SLIDE REVIEW VERIFIED
[2023-03-01] VITALS (18 sets, daily range): BP systolic 102–166; BP diastolic 52–84; PULSE 74–122; RESP 16–41; TEMP 36.3–37.7; O2SAT 83–98
--- NOTE | 2023-03-01 00:15 | PM.IMHP ---
History of Present Illness Date of Service: 03/01/23 Chief Complaint: Generalized weakness this is a 82-year-old male with pertinent history of essential hypertension, mood disorder, gastroesophageal reflux disease who presents to the emergency department for evaluation of generalized weakness, dizziness and burning micturition. Patient states he has been feeling week for the last 3 weeks. He was having some urgency and hesitancy. Patient was seen outpatient and told that he does not have urine infection. He also had a cystoscopy done 3 weeks ago which apparently was normal. Patient presents today as he was having dizziness/lightheadedness as he stood up. Does endorse burning micturition and generalized weakness. Also has been having chills. No documented fever. No chest discomfort, shortness of breath, palpitations, changes in bowel habits. In the emergency department, patient was found to be septic and urine concerning for UTI. Review of Systems Constitutional: Constitutional: Reports chills, Reports fatigue, Reports lethargy and Reports weakness Cardiovascular: Cardiovascular: Reports no additional cardiovascular complaints Respiratory: Respiratory: Reports no additional respiratory complaints Gastrointestinal: Gastrointestinal: Reports no additional gastrointestinal complaints Genitourinary: Genitourinary: Reports dysuria, Reports urinary frequency and Reports urinary hesitancy Neurologic: Reports weakness Endocrine: Endocrine: Reports fatigue [facility] Medical History Graves disease Hypertension Vertigo Dizziness Pertinent family history: No family history of early CAD Social History Alcohol intake: former Smoked in Last 30 Days: No Use of substances other than those prescribed or required for medical reasons: No Advance Directives: No Advance Directives Information Provided: No Meds Allergies Allergy/AdvReac Type Severity Reaction Status Date / Time No Known Allergies Allergy Verified 02/28/23 20:44 Active Medications: Current Medications Ceftriaxone Sodium 1 gm/ (Sodium Chloride) 50 mls @ 100 mls/hr IV ONCE ONE Stop: 03/01/23 00:28 Sodium Chloride (Ns) 1,000 mls @ 999 mls/hr IV .Q1H1M ONE Stop: 03/01/23 01:13 Physical Exam Vital Signs and Narrative: Vital Signs: Last Vital Signs Temp 98.3 F 02/28/23 22:14 Pulse 89 02/28/23 22:14 Resp 16 10/17/23 22:14 BP 157/83 H 02/28/23 22:14 Pulse Ox 98 02/28/23 22:14 O2 Del Method Room Air 02/28/23 22:14 BMI result Body Mass Index 33.0 Elderly male lying in bed in no distress Neck supple, no JVD Regular rate and rhythm, S1-S2 heard Regular breath sounds bilaterally, no wheezing or crackles appreciated Abdomen soft nontender, no guarding, no rigidity Patient is awake, alert and oriented to self, place, time and person ; no focal motor deficit Psych: Normal mood No pedal edema Results Labs 02/28/23 21:57 02/28/23 21:57 Labs: Laboratory Results - last 24 hr 02/28/23 02/28/23 02/28/23 20:59 20:59 20:59 MCV MCH MCHC RDW Plt Count MPV Immature Gran % (Auto) Neut % (Auto) Lymph % (Auto) [place] % (Auto) Eos % (Auto) Baso % (Auto) Lymph # (Auto) [place] # (Auto) Eos # (Auto) Baso # (Auto) Abs Immat Gran (auto) Absolute Neuts (auto) Absolute Nucleated RBC Nucleated RBC % (auto) Smear Tech's Comments Anion Gap Estim Creat Clear Calc Estimated GFR Random Glucose Calcium Magnesium Total Bilirubin AST ALT Alkaline Phosphatase Total Protein Albumin Urine Color [place] A Cancelled Urine Appearance Turbid Cancelled Urine pH 5.0 Ur Specific Solomon Urine Protein Urine Glucose (UA) Urine Ketones Urine Blood Urine Nitrite Ur Leukocyte Esterase Urine RBC Urine WBC Urine WBC Clumps Ur Squamous Epith Cells Ur Transition Epith Cell Ur Renal Epithelial Cell Calcium Oxalate Crystal Leucine Crystals Cystine Crystals Tyrosine Crystals Other Crystals Urine Bacteria Urine Parasites Bilirubin Casts Epithelial Casts Fatty Casts Hyaline Casts Granular Casts Waxy Casts Broad Casts RBC Casts WBC Casts Other Casts Urine Trichomonas Urine Yeast COVID-19 (ANKUR) COVID-19 Clin Com 02/28/23 02/28/23 02/28/23 20:59 20:59 20:59 MCV MCH MCHC RDW Plt Count MPV Immature Gran % (Auto) Neut % (Auto) Lymph % (Auto) [place] % (Auto) Eos % (Auto) Baso % (Auto) Lymph # (Auto) [place] # (Auto) Eos # (Auto) Baso # (Auto) Abs Immat Gran (auto) Absolute Neuts (auto) Absolute Nucleated RBC Nucleated RBC % (auto) Smear Tech's Comments Anion Gap Estim Creat Clear Calc Estimated GFR Random Glucose Calcium Magnesium Total Bilirubin AST ALT Alkaline Phosphatase Total Protein Albumin Urine Color Urine Appearance Urine pH Cancelled Ur Specific Solomon 1.020 Cancelled Urine Protein 300 (3+) H Cancelled Urine Glucose (UA) Negative Urine Ketones Urine Blood Urine Nitrite Ur Leukocyte Esterase Urine RBC Urine WBC Urine WBC Clumps Ur Squamous Epith Cells Ur Transition Epith Cell Ur Renal Epithelial Cell Calcium Oxalate Crystal Leucine Crystals Cystine Crystals Tyrosine Crystals Other Crystals Urine Bacteria Urine Parasites Bilirubin Casts Epithelial Casts Fatty Casts Hyaline Casts Granular Casts Waxy Casts Broad Casts RBC Casts WBC Casts Other Casts Urine Trichomonas Urine Yeast COVID-19 (ANKUR) COVID-19 [employer] 02/28/23 02/28/23 02/28/23 20:59 20:59 20:59 MCV MCH MCHC RDW Plt Count MPV Immature Gran % (Auto) Neut % (Auto) Lymph % (Auto) [place] % (Auto) Eos % (Auto) Baso % (Auto) Lymph # (Auto) [place] # (Auto) Eos # (Auto) Baso # (Auto) Abs Immat Gran (auto) Absolute Neuts (auto) Absolute Nucleated RBC Nucleated RBC % (auto) Smear Tech's Comments Anion Gap Estim Creat Clear Calc Estimated GFR Random Glucose Calcium Magnesium Total Bilirubin AST ALT Alkaline Phosphatase Total Protein Albumin Urine Color Urine Appearance Urine pH Ur Specific Solomon Urine Protein Urine Glucose (UA) Cancelled Urine Ketones Negative Cancelled Urine Blood Large (3+) H Cancelled Urine Nitrite Positive H Ur Leukocyte Esterase Urine RBC Urine WBC Urine WBC Clumps Ur Squamous Epith Cells Ur Transition Epith Cell Ur Renal Epithelial Cell Calcium Oxalate Crystal Leucine Crystals Cystine Crystals Tyrosine Crystals Other Crystals Urine Bacteria Urine Parasites Bilirubin Casts Epithelial Casts Fatty Casts Hyaline Casts Granular Casts Waxy Casts Broad Casts RBC Casts WBC Casts Other Casts Urine Trichomonas Urine Yeast COVID-19 (ANKUR) COVID-19 [employer] Com 02/28/23 02/28/23 02/28/23 20:59 20:59 20:59 MCV MCH MCHC RDW Plt Count MPV Immature Gran % (Auto) Neut % (Auto) Lymph % (Auto) [place] % (Auto) Eos % (Auto) Baso % (Auto) Lymph # (Auto) [place] # (Auto) Eos # (Auto) Baso # (Auto) Abs Immat Gran (auto) Absolute Neuts (auto) Absolute Nucleated RBC Nucleated RBC % (auto) Smear Tech's Comments Anion Gap Estim Creat Clear Calc Estimated GFR Random Glucose Calcium Magnesium Total Bilirubin AST ALT Alkaline Phosphatase Total Protein Albumin Urine Color Urine Appearance Urine pH Ur Specific Solomon Urine Protein Urine Glucose (UA) Urine Ketones Urine Blood Urine Nitrite Cancelled Ur Leukocyte Esterase Large (3+) H Cancelled Urine RBC >20 H Cancelled Urine WBC >50 H Urine WBC Clumps Ur Squamous Epith Cells Ur Transition Epith Cell Ur Renal Epithelial Cell Calcium Oxalate Crystal Leucine Crystals Cystine Crystals Tyrosine Crystals Other Crystals Urine Bacteria Urine Parasites Bilirubin Casts Epithelial Casts Fatty Casts Hyaline Casts Granular Casts Waxy Casts Broad Casts RBC Casts WBC Casts Other Casts Urine Trichomonas Urine Yeast COVID-19 (ANKUR) COVID-19 [employer] 02/28/23 02/28/23 02/28/23 20:59 20:59 20:59 MCV MCH MCHC RDW Plt Count MPV Immature Gran % (Auto) Neut % (Auto) Lymph % (Auto) [place] % (Auto) Eos % (Auto) Baso % (Auto) Lymph # (Auto) [place] # (Auto) Eos # (Auto) Baso # (Auto) Abs Immat Gran (auto) Absolute Neuts (auto) Absolute Nucleated RBC Nucleated RBC % (auto) Smear Tech's Comments Anion Gap Estim Creat Clear Calc Estimated GFR Random Glucose Calcium Magnesium Total Bilirubin AST ALT Alkaline Phosphatase Total Protein Albumin Urine Color Urine Appearance Urine pH Ur Specific Solomon Urine Protein Urine Glucose (UA) Urine Ketones Urine Blood Urine Nitrite Ur Leukocyte Esterase Urine RBC Urine WBC Cancelled Urine WBC Clumps Cancelled Ur Squamous Epith Cells 0-2 Cancelled Ur Transition Epith Cell Cancelled Ur Renal Epithelial Cell Cancelled Calcium Oxalate Crystal Cancelled Leucine Crystals Cancelled Cystine Crystals Cancelled Tyrosine Crystals Cancelled Other Crystals Cancelled Urine Bacteria 4+ Cancelled Urine Parasites Cancelled Bilirubin Casts Cancelled Epithelial Casts Cancelled Fatty Casts Cancelled Hyaline Casts >20 Granular Casts Waxy Casts Broad Casts RBC Casts WBC Casts Other Casts Urine Trichomonas Urine Yeast COVID-19 (ANKUR) COVID-[employer] 02/28/23 02/28/23 20:59 21:57 MCV 91.6 MCH 32.6 MCHC 35.6 RDW 14.3 Plt Count 137 L MPV 10.9 Immature Gran % (Auto) 1.1 H Neut % (Auto) 91.5 H Lymph % (Auto) 0.7 L [place] % (Auto) 6.5 Eos % (Auto) 0.0 Baso % (Auto) 0.2 Lymph # (Auto) 0.2 L [place] # (Auto) 1.7 H Eos # (Auto) 0.0 Baso # (Auto) 0.1 Abs Immat Gran (auto) 0.30 H Absolute Neuts (auto) 24.1 H Absolute Nucleated RBC 0.000 Nucleated RBC % (auto) 0.0 Smear Tech's Comments VERIFIED Anion Gap 15 Estim Creat Clear Calc 51.8 Estimated GFR 59 Random Glucose 166 H Calcium 8.7 Magnesium 2.2 Total Bilirubin 2.4 H AST 61 H ALT 17 Alkaline Phosphatase 81 Total Protein 6.2 L Albumin 4.0 Urine Color Urine Appearance Urine pH Ur Specific Solomon Urine Protein Urine Glucose (UA) Urine Ketones Urine Blood Urine Nitrite Ur Leukocyte Esterase Urine RBC Urine WBC Urine WBC Clumps Ur Squamous Epith Cells Ur Transition Epith Cell Ur Renal Epithelial Cell Calcium Oxalate Crystal Leucine Crystals Cystine Crystals Tyrosine Crystals Other Crystals Urine Bacteria Urine Parasites Bilirubin Casts Epithelial Casts Fatty Casts Hyaline Casts Cancelled Granular Casts Cancelled Waxy Casts Cancelled Broad Casts Cancelled RBC Casts Cancelled WBC Casts Cancelled Other Casts Cancelled Urine Trichomonas Cancelled Urine Yeast Cancelled COVID-19 (ANKUR) Negative COVID-19 Clin Com See Note Assessment and Plan (1) Sepsis: Status: Acute (2) UTI (urinary tract infection): Status: Acute Plan This is a 82-year-old male with pertinent history of essential hypertension, mood disorder, gastroesophageal reflux disease who presents to the emergency department for evaluation of generalized weakness, dizziness and burning micturition. #. sepsis due to UTI. Resuscitated with IV crystalloids. Initiating empiric IV antibiotics. Blood culture and urine culture pending. Lactic acid obtained #. presyncope in the setting of above #. essential hypertension: Hold antihypertensives in the setting of sepsis #. mood disorder: Continue home mood stabilizers #. gastroesophageal reflux disease: On PPI Med rec pending DNR/ DNI. Discussed with patient at bedside Admit as inpatient and will require two night minimum hospital stay for IV antibiotics Time Spent With Patient Time: Total time managing care of this patient today ____ minutes. Quality Stroke Does the patient have a stroke diagnosis?: No VTE Prior VTE?: No VTE Risk Level:: Medical - moderate - high VTE Device Contraindication: Treatment Not Indicated VTE Drug Contraindication: N/A - Med Ordered
[2023-03-01] MEDS: Enoxaparin Sodium 40 MG/0.4 ML SYRINGE SUBCUT (00:33)
[2023-03-01] MEDS: 0.9 % Sodium Chloride 1,000 ML 999 ML IV (00:34)
[2023-03-01] MEDS: Acetaminophen 325 MG TABLET 650 MG PO (00:34)
[2023-03-01] MEDS: cefTRIAXone sodium 1 GM in 0.9 % Sodium Chloride 50 ML IV (00:34)
[2023-03-01 00:51] LABS: Lactic Acid 2.3 mmol/L (0.5-2.0)
--- NOTE | 2023-03-01 01:05 | MHC.EDTECH ---
Pt cleaned and changed into a clean hospital gown. Blood cultures sent to lab. New linen put on bed
[2023-03-01 02:27] LABS: Reflex Lactate? Lactic Acid Added
[2023-03-01 03:32] LABS: ~Lactic Acid-LAB USE ONLY 1.8 mmol/L (0.5-2.0)
--- NOTE | 2023-03-01 03:35 | PC.NURSE ---
this rn completed pt med req. pt reports taking lisinopril 2 pills in the am and 1 pill at night. pt reports taking amlodapine daily as well, refill has not been filled since may 2022.
--- NOTE | 2023-03-01 03:50 | MHC.EDTECH ---
pt placed on bedpan . pt changed and cleaned new linen and zac put on stretcher
[2023-03-01 06:08] LABS: Imm Gran Pct Auto 1.1 % (0.0-0.4); PLT CLUMP 1; SCAN SMEAR FLAG 1
[2023-03-01 06:10] LABS: Basophils Percent Auto 0.2 % (0-2); Hematocrit 40.3 % (42.0-52.0); Hemoglobin 14.2 g/dl (14.0-18.0); Imm Gran Abs Auto 0.21 X10*3/uL (0.00-0.03); Lymphocytes Absolute Auto 0.4 X10*3/uL (1.2-4.9); Mean Corpuscular HGB Conc 35.2 g/dl (31.0-36.0); Mean Corpuscular Hemoglobin 32.2 pg (27.0-33.0); Mean Corpuscular Volume 91.4 fL (80.0-98.0); Mean Platelet Volume 10.6 fL (9.4-12.4); Monocytes Percent Auto 5.2 % (2-11); Neutrophils Absolute Auto 18.3 x10*3/uL (2.0-8.3); Neutrophils Percent Auto 91.5 % (45-73); Red Blood Count 4.41 X10*6/uL (4.60-5.80); Red Cell Distribution Width 14.2 % (11.0-16.0)
[2023-03-01 06:26] LABS: MANUAL DIFF FLAG SCAN; Platelet Count 122 X10*3/uL (160-400)
[2023-03-01 06:31] LABS: Anion Gap 15 (12-20); Blood Urea Nitrogen 19 mg/dL (9-16); Calcium 8.5 mg/dL (8.4-10.2); Carbon Dioxide 19 mmol/L (22-29); Chloride 109 mmol/L (96-108); Estimated Glomerular Filt Rate > 60; Glucose Random 127 mg/dL (60-115); Potassium 3.2 mmol/L (3.3-5.1); Sodium 140 mmol/L (135-145)
--- NOTE | 2023-03-01 07:23 | MHC.EDTECH ---
pt cleaned, bowel movement, pt boosted and head of bed elevated
--- NOTE | 2023-03-01 07:33 | PHA.MEDREC ---
Pharmacy Consult ? Medication Reconciliation Pharmacy has completed the medication reconciliation. med rec complete using claim history and information collected by darlin.
--- NOTE | 2023-03-01 07:35 | PC.NURSE ---
patient found to be hypoxic in the 80s , placed on non reabreather patient now satting 96%. ED doctor at bedside, resp at bedside. patient audibly wheezing.
[2023-03-01] MEDS: Albuterol Sulfate 2.5 MG/0.5 ML VIAL.NEB 5 MG INHALE (07:37)
--- NOTE | 2023-03-01 07:47 | ECG_ITS ---
Test Reason : cp Blood Pressure : / mmHG Vent. Rate : 087 BPM Atrial Rate : 087 BPM P-R Int : 182 ms QRS Dur : 082 ms QT Int : 332 ms P-R-T Axes : 022 -12 002 degrees QTc Int : 399 ms Sinus rhythm with Premature atrial complexes Nonspecific ST and T wave abnormality Abnormal ECG When compared with ECG of 28-FEB-2023 21:47, Premature atrial complexes are now Present Nonspecific T wave abnormality now evident in Anterolateral leads Referred By: Sudhir Rob Electronically Signed By:VINOD HOLLAND MD
--- NOTE | 2023-03-01 07:48 | PC.NURSE ---
patient placed on bipap / 40% o2 satting 99%, given IV lasix 60mg per MAR
[2023-03-01] MEDS: Morphine Sulfate 4 MG/ML CARTRIDGE 2 MG IVPUSH (08:06)
[2023-03-01] MEDS: Furosemide 100 MG/10 ML VIAL 60 MG IVPUSH (08:06)
[2023-03-01] MEDS: Nitroglycerin 2 % Oint 1 GM Packet 1 INCH TRANSDERMA (08:07)
[2023-03-01 08:09] LABS: INTERNATIONAL NORM RATIO 1.4 (0.9-1.1); Prothrombin Time 16.5 SEC (11.1-13.3)
[2023-03-01 08:12] LABS: Partial Thromboplastin Time 32.7 SEC (26.0-36.4)
[2023-03-01 08:17] LABS: ABG HCO3 16 mmol/L (22-26); ABG pCO2 25 mmHg (32-45); ABG pH 7.42 (7.35-7.45); ABG pO2 150 mmHg (83-108)
[2023-03-01 08:18] LABS: ABG Refer to POC result
--- NOTE | 2023-03-01 08:20 | PM.EVENT ---
Event Note Date of Service: 03/01/23 Event Note: called to see patient for acute respiratory distress, patient tachypneic, hypoxic to 80s, accessory muscles, frothy sputum, sbp 170s cxr appears to have increased vascularization (report pending) likely pulmonary edema started on bipap, given 60iv lasix, with some improvement in resp distress, now saturating 99% on bipap d/w ICU will transfer to ICU for rescue NIPPV. Time Spent With Patient Time: Total time managing care of this patient today ____ minutes.
[2023-03-01 08:21] LABS: B Type Natriuretic Peptide 1251 pg/mL (<100); Troponin-I High Sensitivity 33.9 ng/L (<3.5-35.0)
--- NOTE | 2023-03-01 08:30 | PC.NURSE ---
israel placed in patient, 200 ml output of palomo urine. patient on bipap, satting 99% 12/16 40%. patient vitals as follows 94 heart rate, 20RR 140/69. patient daughter at bedside, patient and daughter aware of plan
--- NOTE | 2023-03-01 08:38 | MHC.CM.PN ---
CM ATTEMPTED TO SEE PT WHO WAS RECEIVING RN CARE CM TO RETURN
[2023-03-01] MEDS: cefEPime HCl 1 GM in 0.9 % Sodium Chloride 50 ML IV ×2 (08:41→17:00)
[2023-03-01] MEDS: vancomycin/NS 2,000 MG/500 ML PLAST..BAG 250 MG IV (09:28)
--- NOTE | 2023-03-01 09:49 | PHA.PROG ---
Admission Date/Time: March 01, 2023 00:14 Indication: other possible UTI/sepsis Weight in k.708 kg Adjusted body weight in Kg: [place] body weight in Kg: Obesity Dosing Indication % IBW: Serum Creatinine - Last 168 Hours 02/28/23 03/01/23 21:57 05:13 Creatinine 1.17 0.83 Estimated CrCl and GFR - Last 168 Hours 02/28/23 03/01/23 21:57 05:13 Estim Creat Clear Calc 51.8 73.0 Estimated GFR 59 > 60 Vancomycin Loading Dose: 2000mg x 1 Current Vancomycin Dosing Regimen: 750mg Q12H Vancomycin Monitoring using AUC goal of 400 - 600 range with trough as surrogate marker: 419 mg/L Date and Time for next Vancomycin Level to be drawn: 03/02/23 @1900 Pharmacist Comments on Vancomycin Plan: Predicted trough of 14.1 mg/L; will continue to monitor renal function and adjust as necessary Vancomycin dosing will take advantage of [employer] as a clinical decision support tool that uses Bayesian modeling to calculate individual patient's pharmacokinetic parameters and forecast the patient's drug concentration time course with the target goal AUC 24 range of 400 - 600 mg/L/hr.
--- NOTE | 2023-03-01 12:37 | MHC.CM.PN ---
CM MET WITH PT AND DAUGHTER AT BEDSIDE PT LIVES ALONE AND IS INDEPENDENT WITH CARE HE HAD NO SERVICES [employer] PT HAS A CANE AND WALKER BUT DOES NOT USE THEM HE SAYS HIS DAUGHTER IS HIS HCP, COPY REQUESTED PCP: PETER GRAHAM IMM DELIVERED DAUGHTER REPORTS CONCERN BECAUSE THE PT HAS AN ENLARGED PROSTATE AND HAS TO URINATE FREQUENTLY SO HAS URINALS THROUGHOUT THE HOME SHE HOPES PT CAN EITHER HAVE A UROLOGY CONSULT HERE OR APPT FOR FOLLOW UP AT DC SHE IS ALSO CONCERNED THE PT MAY NEED STR, PREFERENCES ARE [facility] AND [facility] IN THAT ORDER SHE IS REQUESTING [facility] WHEN HE GOES HOME FOR RN, PT AND HOME SAFETY EVAL, PREFERENCE IS [facility] - ASKS FOR [facility]UC[facility] SHE SI ALSO ASKING FOR A [facility] REFERRAL FOR [facility] REFERRALS OUT DCP PENDING PT EVAL
[2023-03-01] MEDS: Lactated Ringers 500 ML 50 ML IV (13:38)
[2023-03-01] MEDS: 0.9 % Sodium Chloride Flush 3 ML SYRINGE IVFLUSH ×2 (17:00→21:07)
[2023-03-01] MEDS: vancomycin HCL 750 MG in 0.9 % Sodium Chloride 250 ML 265 MG IV (21:07)
[2023-03-02] VITALS (8 sets, daily range): BP systolic 133–170; BP diastolic 69–87; PULSE 70–89; RESP 16–21; TEMP 36.1–36.4; O2SAT 92–99
[2023-03-02] MEDS: cefEPime HCl 1 GM in 0.9 % Sodium Chloride 50 ML IV ×3 (00:10→16:46)
[2023-03-02] MEDS: Enoxaparin Sodium 40 MG/0.4 ML SYRINGE SUBCUT (00:10)
--- NOTE | 2023-03-02 04:40 | PC.NURSE ---
0050 pt sob respiratory rate 24, 02 sats 90% on room air, lungs with fine crackles in lower lobes.02 AT 3L applied sats 95-96. notified and said ok to use 02.no further orders.
[2023-03-02 05:52] LABS: PLT CLUMP 1; SCAN SMEAR FLAG 1
[2023-03-02 05:54] LABS: Basophils Percent Auto 0.1 % (0-2); Hematocrit 40.1 % (42.0-52.0); Hemoglobin 13.9 g/dl (14.0-18.0); Imm Gran Abs Auto 0.27 X10*3/uL (0.00-0.03); Imm Gran Pct Auto 1.3 % (0.0-0.4); Lymphocytes Absolute Auto 0.4 X10*3/uL (1.2-4.9); Lymphocytes Percent Auto 2.1 % (20-40); Mean Corpuscular HGB Conc 34.7 g/dl (31.0-36.0); Mean Corpuscular Hemoglobin 32.6 pg (27.0-33.0); Mean Corpuscular Volume 94.1 fL (80.0-98.0); Mean Platelet Volume 11.9 fL (9.4-12.4); Monocytes Absolute Auto 1.5 X10*3/uL (0.1-1.2); Monocytes Percent Auto 7.3 % (2-11); Neutrophils Absolute Auto 17.9 x10*3/uL (2.0-8.3); Neutrophils Percent Auto 89.2 % (45-73); Red Blood Count 4.26 X10*6/uL (4.60-5.80); Red Cell Distribution Width 14.5 % (11.0-16.0)
[2023-03-02 05:55] LABS: White Blood Count 20.2 X10*3/uL (4.8-10.8)
[2023-03-02 05:56] LABS: MANUAL DIFF FLAG NO; Platelet Count 119 X10*3/uL (160-400)
[2023-03-02 06:14] LABS: Alanine Aminotransferase 76 U/L (0-40); Albumin Level 3.6 g/dL (3.5-5.0); Alkaline Phosphatase 82 U/L (39-117); Anion Gap 14 (12-20); Aspartate Amino Transferase 299 U/L (5-37); Bilirubin Total 1.3 mg/dL (0.0-1.0); Blood Urea Nitrogen 36 mg/dL (9-16); Calcium 9.2 mg/dL (8.4-10.2); Carbon Dioxide 21 mmol/L (22-29); Chloride 107 mmol/L (96-108); Creatinine Clr Calc Pharmacy 44.9; Estimated Glomerular Filt Rate 50; Glucose Random 127 mg/dL (60-115); Magnesium 2.4 mg/dL (1.6-2.6); Phosphorus 3.3 mg/dL (2.7-4.5); Potassium 3.2 mmol/L (3.3-5.1); Sodium 139 mmol/L (135-145)
--- NOTE | 2023-03-02 07:00 | CA_ITS ---
Transthoracic Echocardiogram Patient (Last, First, Middle): Albert Tristan N Gender: Male Date of : 1940 Age: 82 Procedure Date: 03/02/2023 Procedure Type: Transthoracic Echocardiogram Location: S3E Height: 170.18 cm Weight: 95.71 kg BSA: 2.07 m2 Heart Rate: bpm BP: 113 / 61 mmHg Regulatory Manager: TO Referring MD: Zaida Jay MD Symptoms: Assess Cardiac Function Study Quality: Technically Difficult, contrast ECG Rhythm: Sinus Conclusions: - The left ventricular systolic function is mild to moderately decreased. The calculated ejection fraction is 42% by biplane method. - There is moderate calcification of the aortic valve. - There is mild dilatation of the sinuses of Valsalva measuring 4.59 cm and mild dilatation of the ascending aorta measuring 4.10 cm. Findings Procedure Information Contrast agent, definity, is being given per protocol without apparent complications. Left Ventricle Normal left ventricular cavity size. There is mildly increased left ventricular wall thickness. The left ventricular systolic function is mild to moderately decreased. The calculated ejection fraction is 42% by biplane method. There is mild global hypokinesis. Evidence suggests grade I (mild) diastolic dysfunction. There is moderate septal asymmetric hypertrophy. Right Ventricle Normal right ventricular cavity size and systolic function. Atria The left atrium is moderately dilated. The right atrium is normal in size. Aortic Valve There is moderate calcification of the aortic valve. There is no aortic valve stenosis. There is no aortic valve regurgitation. Mitral Valve The mitral valve appears normal. There is trace mitral valve regurgitation. There is no mitral valve stenosis. Pulmonic Valve The pulmonic valve is likely normal. Tricuspid Valve There is trace tricuspid valve regurgitation. There is no evidence of pulmonary hypertension. Great Vessels There is mild dilatation of the sinuses of Valsalva measuring 4.59 cm and mild dilatation of the ascending aorta measuring 4.10 cm. Small plaque is seen in the sino tubular ridge. Venous The inferior vena cava is normal in size and collapses greater than 50% with inspiration. Pericardium/Pleural There is no evidence of pericardial effusion. Prior Study Comparison No prior study available for comparison. Measurements 2D Linear Measurements IVSd: 1.47 0.6-0.9/0.6-1.0 cm LVIDd: 5.69 3.9-5.3/4.2-5.9 cm LVIDd Index: 2.75 2.4-3.2/2.2-3.1 cm/m2 LVIDs: 4.75 2.0-3.6 cm LVPWd: 1.17 0.7-1.1 cm LA Diam: 4.10 2.7-3.8/3.0-4.0 cm LAIDs Index: 1.98 1.5-2.3 cm/m2 LV Mass: 409.54 67-162/88-224 g LV Mass Index: 197.85 43-95/49-115 g/m2 LVOT Diam: 2.30 3.0+(-)1.3 cm 2D Systolic Function EF 4C: 47.30 >55% EF 2C: 37.70 >55% EF BiP: 41.80 >55% Mitral Valve MV VTI: 0.19 MV Pk Juan: 0.88 MV Mn Juan: 0.55 MV Pk Grad: 3.00 MV Mn Grad: 1.00 MV Pk E: 0.54 MV PK A: 0.93 MV Decel Time: 229.00 E/A: 0.60 E'Lateral: 4.57 E'Medial: 3.92 E/E' Med: 13.70 E/E' Lat: 11.70 PHT: 67.00 MVA PHT: 3.28 MVA Continuity: 3.62 Decel [place]: 2.34 Aortic Valve AoV Pk Juan: 1.71 AoV Mn Juan: 1.15 AoV VTI: 0.31 AoV Pk Grad: 12.00 Aov Mn Grad: 6.00 TED Cont.VTI: 2.21 AI Pk Juan: 3.30 AI [place]: 1.56 LVOT LVOT Pk Juan: 0.85 LVOT Mn Juan: 0.52 LVOT VTI: 0.16 LVOT Pk Grad: 3.00 LVOT Mn Grad: 1.00 LVOT Diam: 2.30 LVOT Area: 4.15 Diastolic Function MV Pk E: 0.54 MV Pk A: 0.93 E/A: 0.60 E'Medial: 3.92 E/E' Med: 13.70 E' Laterial: 4.57 E/E' Lat: 11.70 Right Ventricle TAPSE (mm): 27.60 TVS' Juan: 15.00 Tricuspid Valve TR Pk Juan: 2.32 TR Pk Grad: 22.00 RA Press: 3.00 RVSP: 25.00 Great Vessels Aorta Sinus of Valsalva: 4.59 2.0-3.[address] [place]: 3.05 1.7-3.4 cm Ao Asc: 4.10 2.1-3.4 cm Updated in Other Vendor System with Status of Final Claudio Foster MD electronically signed on 03/02/2023 11:03:27 AM with status of Final
[2023-03-02] MEDS: ondansetron HCL 4 MG/2 ML VIAL IVPUSH ×2 (08:17→18:18)
[2023-03-02] MEDS: 0.9 % Sodium Chloride Flush 3 ML SYRINGE IVFLUSH ×3 (08:20→20:35)
[2023-03-02 09:39] LABS: Vancomycin Trough 14.4 mcg/mL (10.0-20.0)
--- NOTE | 2023-03-02 10:15 | HE.PHANOTE ---
RE KEVIN PT SCR WAS 1.35. WILL CHANGE DOSE AND GET TROUGH AFTER 2 LEVELS. TROUGH WAS 14.4, CHANGED TO Q24H AND WILL GET ANOTHER LEVEL 03/03 @0900 TERESA
[2023-03-02] MEDS: vancomycin HCL 1,000 MG in 0.9 % Sodium Chloride 250 ML 270 MG IV (10:41)
[2023-03-02] MEDS: Furosemide 40 MG/4 ML VIAL IVPUSH (10:41)
--- NOTE | 2023-03-02 11:11 | P.CONCA_ITS ---
History of Present Illness History of Present Illness Date of Service: 03/02/23 Chief complaint: Generalized Weakness Narrative: The cardiology consultation regarding shortness of breath and question of congestive heart failure. Patient has been admitted for generalized weakness, dizziness and burning micturition. Per H&P, he was also having some dizziness and lightheadedness. He there is mention of no chest discomfort, shortness of breath or palpitations. Initial impression was sepsis/UTI. After admission, it seems that he had acute respiratory distress became hypoxic and tachypneic. He was thought to have had acute pulmonary edema and given Lasix and put on BiPAP. Today, he has longer on BiPAP. Able to have some conversation. Daughter is also the bedside. According to him, there shortness of breath with activity which has been longstanding. However, more so recently. No known cardiac issues like coronary artery disease or myocardial infarction or cardiomyopathy or anything else along those lines. Daughter states that patient does he had a lot of salt at baseline but does not drink fluids. Review of Systems 2 Review of Systems: Yes all other systems are reviewed and are negative Constitutional: Constitutional: Reports as per HPI and Reports no additional constitutional complaints Eyes: Eyes: Reports as per HPI and Denies no additional eye complaints ENT: Denies system reviewed and no additional complaints, except as documented and Reports as per HPI Cardiovascular: Cardiovascular: Reports as per HPI, Reports no additional cardiovascular complaints, Denies acrocyanosis, Denies cool extremities, Denies chest pain, Denies leg edema, Denies lightheadedness, Denies palpitations and Reports dyspnea Respiratory: Respiratory: Reports as per HPI, Denies no additional respiratory complaints and Reports dyspnea Gastrointestinal: Gastrointestinal: Reports as per HPI and Denies no additional gastrointestinal complaints Genitourinary: Genitourinary: Reports no additional male genitourinary complaints and Reports as per HPI Musculoskeletal: Musculoskeletal: Reports no additional musculoskeletal complaints and Reports as per HPI Integumentary/Breasts: Skin/Breast: Reports system reviewed and no additional complaints, except as docu Neurologic: Reports system reviewed and no additional complaints, except as documented and Reports as per HPI Psychiatric: Psychiatric: Reports no additional psychiatric complaints and Reports as per HPI Endocrine: Endocrine: Reports no additional endocrine complaints, Reports as per HPI and Denies palpitations Hematologic/Lymphatic: Hematologic/Lymphatic: Reports no additional hematologic/lymphatic complaints and Reports as per HPI Allergic/Immunologic: Allergic/Immunologic: Reports no additional allergic/immunologic complaints and Reports as per [facility] Past Medical History Medical History Graves disease Hypertension Vertigo Dizziness Family History Pertinent family history: No significant family history pertinent to this admission. Social History Social History Household Members: None Housing: House Alcohol intake: former Patient Tobacco Use Status: Never used Tobacco Smoked in Last 30 Days: No Use of substances other than those prescribed or required for medical reasons: No Currently Displaying Signs/Symptoms of Drug Intoxication Withdrawal: No Have you been hit, kicked, punched, or otherwise hurt by someone within the past year? If so, by whom?: No Do you feel safe in your current relationship?: Yes Is there a partner from a previous relationship who is making you feel unsafe now?: No Are you made to feel afraid or neglected: No Mandaeism Healthcare Practices: Quaker Advance Directives: No Advance Directives Information Provided: No Do you have thoughts of harming others: None Do you have a plan to hurt others: No Plan Recently lost weight without trying: No Nutrition Risks: No Nutritional Risk service: Yes Meds Allergies Allergy/AdvReac Type Severity Reaction Status Date / Time No Known Allergies Allergy Verified 02/28/23 20:44 Active Medications: Current Medications Acetaminophen (Acetaminophen 325 Mg Tablet) 650 mg PO Q6H PRN PRN Reason: Pain, Mild (Pain Scale 1-3) Albuterol/Ipratropium (Albuterol/Iprat 2.5/0.5mg 3 Ml Ampul.Neb) 3 ml INHALE RQ6H WHILE AWAKE PRN PRN Reason: Shortness of Breath/Wheezing Enoxaparin Sodium (Enoxaparin Sodium 40 Mg/0.4 Ml Syringe) 40 mg SUBCUT Q24H [facility]ARLENE Last Admin: 03/02/23 00:10 Dose: 40 mg Cefepime HCl 1 gm/ Sodium (Chloride) 50 mls @ 100 mls/hr IV Q8H [facility] Last Infusion: 03/02/23 09:46 Dose: Infused Vancomycin HCl 1,000 mg/ (Sodium Chloride) 270 mls @ 270 mls/hr IV Q24H [facility] Last Admin: 03/02/23 10:41 Dose: 270 mls/hr Melatonin (Melatonin 3 Mg Tablet) 6 mg PO BEDTIME PRN PRN Reason: Insomnia Ondansetron HCl (Ondansetron Hcl 4 Mg/2 Ml Vial) 4 mg IVPUSH Q8H PRN PRN Reason: Nausea and Vomiting Last Admin: 03/02/23 08:17 Dose: 4 mg Pharmacy Consult (Consult Rx Vancomycin Dosing) 1 each MISCELLANE DAILY PRN PRN Reason: Consult order Sodium Chloride (0.9 % Sodium Chloride Flush 3 Ml Syringe) [facility] Last Admin: 03/02/23 08:20 Dose: 3 ml Home Medications Medication Instructions Recorded Confirmed Last Taken Type allopurinol 300 mg tablet 300 mg PO DAILY 03/01/23 03/01/23 Unknown History amlodipine 5 mg tablet 5 mg PO TID 03/01/23 03/01/23 Unknown History lisinopril 10 mg tablet 10 mg PO BEDTIME 03/01/23 03/01/23 Unknown History lisinopril 10 mg tablet 20 mg PO DAILY 03/01/23 03/01/23 Unknown History lorazepam 0.5 mg tablet 0.5 mg PO TID 03/01/23 03/01/23 Unknown History omeprazole 20 mg capsule,delayed 20 mg PO BID 03/01/23 03/01/23 Unknown History release Physical Exam 2 Vital Signs: Vital Signs: Last Vital Signs Temp 97.3 F 03/02/23 07:31 Pulse 72 03/02/23 07:31 Resp 16 03/02/23 07:31 BP 138/78 03/02/23 07:31 Pulse Ox 96 03/02/23 07:31 O2 Del Method Nasal Cannula 03/02/23 07:31 O2 Flow Rate 2 03/02/23 07:31 BMI result Body Mass Index 33.0 Const: General: comfortable and no acute distress O rientation/consciousness: patient oriented x3 HEENT: Other: Unremarkable Head: Yes normal to inspection Neck: Neck: Yes normal visual inspection Chest: Chest palpation & inspection: normal inspection of the chest Resp: Auscultation: crackles and diminished lung sounds Cardio: Palpation: normal PMI Heart sounds: S1 normal heart sound present, S2 normal heart sound present, no gallops, no murmurs and no rubs GI: Palpation (GI): Soft to palpation Back/Spine/Pelvis: Other: unremarkable Skin: General skin exam: no rashes or lesions noted Neuro: General: patient oriented x3 Extrem: General: Yes normal to inspection Psych: Mental Status: mental status grossly normal Objective Labs and Meds 03/02/23 05:07 03/02/23 05:07 Lab results: Laboratory Results - last 24 hr 03/02/23 03/02/23 05:07 08:04 WBC 20.2 H RBC 4.26 L Hgb 13.9 L Hct 40.1 L MCV 94.1 MCH 32.6 MCHC 34.7 RDW 14.5 Plt Count 119 L MPV 11.9 Immature Gran % (Auto) 1.3 H Neut % (Auto) 89.2 H Lymph % (Auto) 2.1 L [place]ison % (Auto) 7.3 Eos % (Auto) 0.0 Baso % (Auto) 0.1 Lymph # (Auto) 0.4 L [place] # (Auto) 1.5 H Eos # (Auto) 0.0 Baso # (Auto) 0.0 Abs Immat Gran (auto) 0.27 H Absolute Neuts (auto) 17.9 H Absolute Nucleated RBC 0.000 Nucleated RBC % (auto) 0.0 Hold Purple Top SEE NOTE Sodium 139 Potassium 3.2 L Chloride 107 Carbon Dioxide 21 L Anion Gap 14 BUN 36 H Creatinine 1.35 Estim Creat Clear Calc 44.9 Estimated GFR 50 Random Glucose 127 H Calcium 9.2 D Phosphorus 3.3 Magnesium 2.4 Total Bilirubin 1.3 H AST 299 H ALT 76 H Alkaline Phosphatase 82 Total Protein 6.0 L Albumin 3.6 Vancomycin Trough 14.4 ECG Interpretation: EKG shows sinus rhythm; nonspecific ST-T changes. Imaging Radiologist's impression: Impressions Head CT 03/01/23 13:30 IMPRESSION: No acute findings. Mild generalized atrophy and nonspecific periventricular white matter disease. Stable appearing left Acom/EDDIE aneurysm. Assessment and Plan (1) Acute dyspnea: Status: Acute (2) Sepsis: Status: Acute Plan Chest x-ray reported to have hypoinflated lungs with left basilar atelectasis. Labs show leukocytosis. Troponins are within range. Cardiac BNP is high at over 1000. Echocardiogram shows LVEF of 42%. Based on inflow patterns, there is only mild diastolic dysfunction. Moderate aortic valve calcification. IVC has normal size and respiratory variation. Overall, less likely that this is all cardiogenic pulmonary edema only. That could certainly play a role but he could also have an infectious pneumonia due to the high white cell count and also due to the echo findings on inflow Doppler/IVC size. Any case, okay to still do empiric diuretics to ensure any CHF component is also appropriately dressed. Empiric antibiotics. Another chest x-ray. Necessary, get a CT scan. Discussed with Marisela Cr. Discussed with daughter at the bedside. Agrees with plan. Time Spent With Patient Time: Total time managing care of this patient today ____ minutes. Procedures Date of Service Date of Service: 03/02/23
[2023-03-02] MEDS: Potassium Chloride Packet 20 MEQ PACKET 40 MEQ PO (12:45)
--- NOTE | 2023-03-02 13:04 | HO.PM.IMPN ---
Subjective Subjective Date of Service: 03/02/23 Interval History: seen and examined this morning follow up for UTI, sob went to ICU briefly yesterday for bipap denies sob but currently requiring 2L NC. denies cough, fever or chills Review of Systems Review of Systems: Yes all other systems are reviewed and are negative Constitutional Constitutional: Denies chills and Denies fever(s) ENT Ears, Nose, Mouth, and Throat: Denies dizziness Cardiovascular Cardiovascular: Denies chest pain Respiratory Respiratory: Denies cough Gastrointestinal Gastrointestinal: Denies abdominal pain Neurologic Neurologic: Denies dizziness Physical Exam Vital Signs: Vital Signs: Last Vital Signs Temp 97.1 F 03/02/23 12:00 Pulse 89 03/02/23 12:00 Resp 21 H 03/02/23 12:00 BP 148/69 H 03/02/23 12:00 Pulse Ox 97 03/02/23 12:00 O2 Del Method Room Air 03/02/23 12:00 O2 Flow Rate 2 03/02/23 12:00 BMI result Body Mass Index 33.0 Const: Other: vague to situation General: comfortable, alert and awake Nutritional Appearance: overweight Orientation/consciousness: patient oriented x3 Resp: Effort & Inspection: able to speak in complete sentences, no respiratory distress and no use of accessory muscles Cardio: Rate: regular rate GI: Inspection: No distended Palpation (GI): Soft to palpation and nontender Neuro: General: patient oriented x3, moves all extremities and CN's II-XI intact bilaterally Extrem: General: Yes no pedal edema Objective Data Active Medications Acetaminophen (Acetaminophen 325 Mg Tablet) 650 mg PO Q6H PRN PRN Reason: Pain, Mild (Pain Scale 1-3) Albuterol/Ipratropium (Albuterol/Iprat 2.5/0.5mg 3 Ml Ampul.Neb) 3 ml INHALE RQ6H WHILE AWAKE PRN PRN Reason: Shortness of Breath/Wheezing Enoxaparin Sodium (Enoxaparin Sodium 40 Mg/0.4 Ml Syringe) 40 mg SUBCUT Q24H [facility] Last Admin: 03/02/23 00:10 Dose: 40 mg Documented By: KASSIE Cefepime HCl 1 gm/ Sodium (Chloride) 50 mls @ 100 mls/hr IV Q8H [facility] Last Infusion: 03/02/23 09:46 Dose: Infused Documented By: GEOVANNA Melatonin (Melatonin 3 Mg Tablet) 6 mg PO BEDTIME PRN PRN Reason: Insomnia Ondansetron HCl (Ondansetron Hcl 4 Mg/2 Ml Vial) 4 mg IVPUSH Q8H PRN PRN Reason: Nausea and Vomiting Last Admin: 03/02/23 08:17 Dose: 4 mg Documented By: GEOVANNA Pharmacy Consult (Consult Rx Vancomycin Dosing) 1 each MISCELLANE DAILY PRN PRN Reason: Consult order Sodium Chloride (0.9 % Sodium Chloride Flush 3 Ml Syringe) [facility] Last Admin: 03/02/23 08:20 Dose: 3 ml Documented By: GEOVANNA Labs 03/02/23 05:07 03/02/23 05:07 Labs: Laboratory Results - last 24 hr 03/02/23 03/02/23 05:07 08:04 MCV 94.1 MCH 32.6 MCHC 34.7 RDW 14.5 Plt Count 119 L MPV 11.9 Immature Gran % (Auto) 1.3 H Neut % (Auto) 89.2 H Lymph % (Auto) 2.1 L [place] % (Auto) 7.3 Eos % (Auto) 0.0 Baso % (Auto) 0.1 Lymph # (Auto) 0.4 L [place] # (Auto) 1.5 H Eos # (Auto) 0.0 Baso # (Auto) 0.0 Abs Immat Gran (auto) 0.27 H Absolute Neuts (auto) 17.9 H Absolute Nucleated RBC 0.000 Nucleated RBC % (auto) 0.0 Hold Purple Top SEE NOTE Anion Gap 14 Estim Creat Clear Calc 44.9 Estimated GFR 50 Random Glucose 127 H Calcium 9.2 D Phosphorus 3.3 Magnesium 2.4 Total Bilirubin 1.3 H AST 299 H ALT 76 H Alkaline Phosphatase 82 Total Protein 6.0 L Albumin 3.6 Vancomycin Trough 14.4 Microbiology Microbiology Results: Microbiology 02/28/23 Unknown Urine Culture - Preliminary Urine clean catch - Urine parham top Gram negative mariaelena 03/01/23 00:23 Blood Culture - Preliminary Blood - Venous No growth after 24 hours. 03/01/23 00:23 Blood Culture - Preliminary Blood - Venous No growth after 24 hours. Assessment and Plan (1) UTI (urinary tract infection): Status: Acute Plan This is a 82-year-old male with pertinent history of essential hypertension, mood disorder, gastroesophageal reflux disease who presents to the emergency department for evaluation of generalized weakness, dizziness and burning micturition found to have sepsis due to UTI. Hospital course complicated by respiratory failure thought to be related to pulmonary edema necessitating brief stay in ICU for bipap. sepsis due to UTI initially received IV ceftriaxone, was changed to vanco/cefepime in ICU Urine culture growing GNR Blood cultures negative to date Acute respiratory failure with hypoxia thought to be related to pulmonary edema - given lasix x1 and s/p Bipap briefly in the ICU BNP elevated but CXR with no evidence of congestion echo with grade 1 diastolic dysfunction and slight decrease in EF at 42% seen by cardiology - agree with another dose of lasix repeat CXR unremarkable - will obtain Chest CT pt has long smoking history, does not currently smoke and has no formal diagnosis of underlying lung dz. daughter states he is deconditioned and at baseline can only walk to mailbox and back without sob will start prn breathing treatments Hypokalemia k 3.2 will replace and follow level KISHORE SCr fluctuating, up to 1.35 today will d/c vancomycin lisinopril on hold follow renal function Elevated LFTs ?r/t passive congestion vs sepsis no abdominal pain trend LFTs presyncope in the setting of above essential hypertension: initially bp meds held due to sepsis BP starting to trend up will resume norvasc, 5 daily (on 5 TID at baseline) lisinopril on hold for now mood disorder: Continue home mood stabilizers gastroesophageal reflux disease continue prilosec gout resume renal dosed allopurinol dvt ppx - lovenox Code status - changed to full code in ICU Requires ongoing inpatient stay for UTI requiring IV abx and respiratory failure requiring further work up, oxygen Time Spent With Patient Time: Total time managing care of this patient today ____ minutes. Quality Stroke Does the patient have a stroke diagnosis?: No VTE Prior VTE?: No VTE Risk Level:: Medical - moderate - high VTE Device Contraindication: Treatment Not Indicated VTE Drug Contraindication: N/A - Med Ordered
[2023-03-02] MEDS: Albuterol/Iprat 2.5/0.5MG 3 ML AMPUL.NEB INHALE (15:38)
[2023-03-02] MEDS: Morphine Sulfate 2 MG/ML CARTRIDGE IVPUSH (19:13)
[2023-03-02] MEDS: Omeprazole 20 MG CAPSULE.DR PO (20:35)
[2023-03-03] MEDS: cefEPime HCl 1 GM in 0.9 % Sodium Chloride 50 ML IV ×2 (00:01→08:20)
[2023-03-03] MEDS: Enoxaparin Sodium 40 MG/0.4 ML SYRINGE SUBCUT ×2 (00:01→23:38)
[2023-03-03 03:53] VITALS: BP 173/82; PULSE 81; RESP 17; TEMP 36.3; O2SAT 95
[2023-03-03] MEDS: Acetaminophen 325 MG TABLET 650 MG PO ×3 (04:01→23:24)
[2023-03-03 05:50] LABS: Hematocrit 37.9 % (42.0-52.0); Hemoglobin 13.3 g/dl (14.0-18.0); Mean Corpuscular HGB Conc 35.1 g/dl (31.0-36.0); Mean Corpuscular Hemoglobin 32.6 pg (27.0-33.0); Mean Corpuscular Volume 92.9 fL (80.0-98.0); Mean Platelet Volume 11.1 fL (9.4-12.4); Platelet Count 113 X10*3/uL (160-400); Red Blood Count 4.08 X10*6/uL (4.60-5.80); Red Cell Distribution Width 14.3 % (11.0-16.0)
[2023-03-03] MEDS: Omeprazole 20 MG CAPSULE.DR PO ×2 (05:50→16:26)
[2023-03-03 06:10] LABS: Alanine Aminotransferase 69 U/L (0-40); Albumin Level 3.4 g/dL (3.5-5.0); Alkaline Phosphatase 97 U/L (39-117); Anion Gap 13 (12-20); Aspartate Amino Transferase 153 U/L (5-37); Bilirubin Direct 0.4 mg/dL (0.0-0.5); Blood Urea Nitrogen 42 mg/dL (9-16); Calcium 8.7 mg/dL (8.4-10.2); Carbon Dioxide 22 mmol/L (22-29); Chloride 108 mmol/L (96-108); Creatinine Clr Calc Pharmacy 51.3; Estimated Glomerular Filt Rate 59; Glucose Random 124 mg/dL (60-115); Potassium 3.6 mmol/L (3.3-5.1); Sodium 139 mmol/L (135-145); Total Protein 5.6 g/dL (6.5-8.0)
[2023-03-03 07:51] VITALS: BP 161/78; PULSE 79; RESP 17; TEMP 36.4; O2SAT 92
[2023-03-03] MEDS: allopurinoL 300 MG TABLET 150 MG PO (08:20)
[2023-03-03] MEDS: amLODIPine Besylate 5 MG TABLET PO ×2 (08:20→10:21)
[2023-03-03] MEDS: 0.9 % Sodium Chloride Flush 3 ML SYRINGE IVFLUSH ×3 (08:21→23:37)
--- NOTE | 2023-03-03 09:58 | PM.PNCARD ---
Subjective Subjective Date of Service: 03/03/23 Interval history: Patient denies any shortness of breath or anginal-type chest pains. Seems to be resting comfortably. Review of Systems Review of Systems Yes all other systems are reviewed and are negative Constitutional: Reports as per HPI and Reports no additional constitutional complaints Eyes: Reports as per HPI and Denies no additional eye complaints Denies system reviewed and no additional complaints, except as documented and Reports as per HPI Cardiovascular: Reports as per HPI, Reports no additional cardiovascular complaints, Denies acrocyanosis, Denies cool extremities, Denies chest pain, Denies leg edema, Denies lightheadedness, Denies palpitations and Denies dyspnea Respiratory: Reports as per HPI, Denies no additional respiratory complaints and Denies dyspnea Gastrointestinal: Reports as per HPI and Denies no additional gastrointestinal complaints Genitourinary: Reports no additional male genitourinary complaints and Reports as per HPI Musculoskeletal: Reports no additional musculoskeletal complaints and Reports as per HPI Skin/Breast: Reports system reviewed and no additional complaints, except as docu Reports system reviewed and no additional complaints, except as documented and Reports as per HPI Psychiatric: Reports no additional psychiatric complaints and Reports as per HPI Endocrine: Reports no additional endocrine complaints, Reports as per HPI and Denies palpitations Hematologic/Lymphatic: Reports no additional hematologic/lymphatic complaints and Reports as per HPI Allergic/Immunologic: Reports no additional allergic/immunologic complaints and Reports as per HPI Physical Exam Vital Signs: Last Vital Signs Temp 97.5 F 03/03/23 07:51 Pulse 79 03/03/23 07:51 Resp 17 03/03/23 07:51 BP 161/78 H 03/03/23 07:51 Pulse Ox 92 03/03/23 07:51 O2 Del Method Nasal Cannula 03/03/23 07:51 O2 Flow Rate 3.0 03/03/23 07:51 Oxygen Flow Rate 3 03/02/23 17:57 BMI result Body Mass Index 33.0 Const General: comfortable and no acute distress Orientation/consciousness: patient oriented x3 HEENT Other: Unremarkable Head: Yes normal to inspection Neck Neck: Yes normal visual inspection Chest Chest palpation & inspection: normal inspection of the chest Resp Auscultation: crackles, rhonchi and diminished lung sounds Cardio Palpation: normal PMI Heart sounds: S1 normal heart sound present, S2 normal heart sound present, no gallops, no murmurs and no rubs GI Palpation (GI): Soft to palpation Back/Spine/Pelvis Other: unremarkable Skin General skin exam: no rashes or lesions noted Neuro General: patient oriented x3 Extrem General: Yes normal to inspection Psych Mental Status: mental status grossly normal Objective Labs and Meds 03/03/23 05:16 03/03/23 05:16 Lab results: Laboratory Results - last 24 hr 03/02/23 03/03/23 03/03/23 05:07 05:16 09:41 WBC 12.0 H RBC 4.08 L Hgb 13.3 L Hct 37.9 L MCV 92.9 MCH 32.6 MCHC 35.1 RDW 14.3 Plt Count 113 L MPV 11.1 Absolute Nucleated RBC 0.000 Nucleated RBC % (auto) 0.0 Hold Purple Top SEE NOTE SEE NOTE Sodium 139 Potassium 3.6 Chloride 108 Carbon Dioxide 22 Anion Gap 13 BUN 42 H Creatinine 1.18 Estim Creat Clear Calc 51.3 Estimated GFR 59 Random Glucose 124 H Calcium 8.7 Total Bilirubin 1.0 Direct Bilirubin 0.4 AST 153 H ALT 69 H Alkaline Phosphatase 97 Total Protein 5.6 L Albumin 3.4 L Imaging Radiologist's impression: Impressions Chest X-Ray 03/02/23 11:00 IMPRESSION: Hypoexpanded lungs without acute process. Progress Note: A&P Assessment and plan (1) Acute dyspnea: Status: Acute (2) Sepsis: Status: Acute Plan Chest x-ray reported to have hypoinflated lungs with left basilar atelectasis. CT chest has been performed but report is still pending. Labs show leukocytosis. Troponins are within range. Cardiac BNP is high at over 1000. Echocardiogram shows LVEF of 42%. Based on inflow patterns, there is only mild diastolic dysfunction. Moderate aortic valve calcification. IVC has normal size and respiratory variation. Overall, suspect much more a primary of respiratory issue like pneumonia or bronchitis than heart failure. There could be some heart failure component but do not believe that is the main issue. Empiric antibiotics, diuretics as needed, oxygen supplementation as needed. Discussed with Marisela Cr. Discussed with daughter yesterday. Time Spent With Patient Time: Total time managing care of this patient today 45 minutes. This includes time spent in review of chart, laboratory data, imaging studies, review of telemetry, counseling patient, discussion with hospitalist, RN, documentation, coordination of care. Progress Note: Quality Stroke Does the patient have a stroke diagnosis?: No Procedures Date of Service Date of Service: 03/03/23
[2023-03-03 09:59] LABS: Vancomycin Random 12.8 mcg/mL (15-20)
[2023-03-03] MEDS: cefTRIAXone sodium 1 GM in 0.9 % Sodium Chloride 50 ML IV (10:21)
[2023-03-03 12:00] VITALS: BP 156/72; PULSE 63; RESP 18; TEMP 36.4; O2SAT 95
--- NOTE | 2023-03-03 12:29 | P.PNIM_ITS ---
Subjective Subjective Date of Service: 03/03/23 Interval History: seen and examined this morning follow up for UTI, respiratory failure no overnight events still requiring supplemental oxygen but denies respiratory symptoms Review of Systems Review of Systems: Yes all other systems are reviewed and are negative Constitutional Constitutional: Denies chills and Denies fever(s) ENT Ears, Nose, Mouth, and Throat: Denies dizziness Cardiovascular Cardiovascular: Denies chest pain, Denies palpitations and Denies dyspnea Respiratory Respiratory: Denies cough and Denies dyspnea Gastrointestinal Gastrointestinal: Denies abdominal pain, Denies nausea and Denies vomiting Neurologic Neurologic: Denies dizziness Endocrine Endocrine: Denies palpitations Physical Exam 2 Vital Signs: Vital Signs: Last Vital Signs Temp 97.5 F 03/03/23 12:00 Pulse 63 03/03/23 12:00 Resp 18 03/03/23 12:00 BP 156/72 H 03/03/23 12:00 Pulse Ox 95 03/03/23 12:00 O2 Del Method Nasal Cannula 03/03/23 12:00 O2 Flow Rate 3.0 03/03/23 12:00 Oxygen Flow Rate 3 03/02/23 17:57 BMI result Body Mass Index 33.0 Const: General: comfortable, alert and awake Nutritional Appearance: o verweight Orientation/consciousness: patient oriented x3 Resp: Effort & Inspection: able to speak in complete sentences, no respiratory distress and no use of accessory muscles Cardio: Rate: regular rate GI: Inspection: No distended Palpation (GI): Soft to palpation and nontender Neuro: General: patient oriented x3, moves all extremities and CN's II-XI intact bilaterally Extrem: General: Yes no pedal edema Objective Data Active Medications Acetaminophen (Acetaminophen 325 Mg Tablet) 650 mg PO Q6H PRN PRN Reason: Pain, Mild (Pain Scale 1-3) Last Admin: 03/03/23 10:40 Dose: 650 mg Documented By: GEOVANNA Albuterol/Ipratropium (Albuterol/Iprat 2.5/0.5mg 3 Ml Ampul.Neb) 3 ml INHALE RQ6H WHILE AWAKE PRN PRN Reason: Shortness of Breath/Wheezing Last Admin: 03/02/23 15:38 Dose: 3 ml Documented By: JEN Allopurinol (Allopurinol 300 Mg Tablet) 150 mg PO DAILY [facility] Last Admin: 03/03/23 08:20 Dose: 150 mg Documented By: GEOVANNA Amlodipine Besylate (Amlodipine Besylate 10 Mg Tablet) 10 mg PO DAILY [facility]; Protocol Enoxaparin Sodium (Enoxaparin Sodium 40 Mg/0.4 Ml Syringe) 40 mg SUBCUT Q24H [facility] Last Admin: 03/03/23 00:01 Dose: 40 mg Documented By: KASSIE Ceftriaxone Sodium 1 gm/ (Sodium Chloride) 50 mls @ 100 mls/hr IV Q24H [facility] Last Infusion: 03/03/23 11:36 Dose: Infused Documented By: GEOVANNA Melatonin (Melatonin 3 Mg Tablet) 6 mg PO BEDTIME PRN PRN Reason: Insomnia Omeprazole (Omeprazole 20 Mg Capsule.Dr) 20 mg PO BID@0630,1630 [facility] Last Admin: 03/03/23 05:50 Dose: 20 mg Documented By: KASSIE Ondansetron HCl (Ondansetron Hcl 4 Mg/2 Ml Vial) 4 mg IVPUSH Q8H PRN PRN Reason: Nausea and Vomiting Last Admin: 03/02/23 18:18 Dose: 4 mg Documented By: ALANNAH Polyethylene Glycol (Polyethylene Glycol 3350 17 Gm Powd.Pack) 17 gm PO DAILY [facility] Last Admin: 03/03/23 10:24 Dose: Not Given Documented By: GEOVANNA Non-Admin Reason: Patient Refused Sodium Chloride (0.9 % Sodium Chloride Flush 3 Ml Syringe) 3 ml IVFLUSH QSHIFT [facility] Last Admin: 03/03/23 08:21 Dose: 3 ml Documented By: GEOVANNA Labs 03/03/23 05:16 03/03/23 05:16 Labs: Laboratory Results - last 24 hr 03/03/23 03/03/23 03/03/23 05:16 09:11 09:41 MCV 92.9 MCH 32.6 MCHC 35.1 RDW 14.3 Plt Count 113 L MPV 11.1 Absolute Nucleated RBC 0.000 Nucleated RBC % (auto) 0.0 Hold Purple Top SEE NOTE Anion Gap 13 Estim Creat Clear Calc 51.3 Estimated GFR 59 Random Glucose 124 H Calcium 8.7 Total Bilirubin 1.0 Direct Bilirubin 0.4 AST 153 H ALT 69 H Alkaline Phosphatase 97 Total Protein 5.6 L Albumin 3.4 L Random Vancomycin 12.8 L Microbiology Microbiology Results: Microbiology 10/17/23 Unknown Urine Culture - Final Urine clean catch - Urine parham top Escherichia coli 03/01/23 00:23 Blood Culture - Preliminary Blood - Venous No growth after 48 hours. 03/01/23 00:23 Blood Culture - Preliminary Blood - Venous No growth after 48 hours. Assessment and Plan (1) Sepsis: Status: Acute (2) UTI (urinary tract infection): Status: Acute Plan This is a 82-year-old male with pertinent history of essential hypertension, mood disorder, gastroesophageal reflux disease who presents to the emergency department for evaluation of generalized weakness, dizziness and burning micturition found to have sepsis due to UTI. Hospital course complicated by respiratory failure thought to be related to pulmonary edema necessitating brief stay in ICU for bipap. sepsis due to UTI white count trending down, afebrile Urine culture growing e.coli, will change abx to IV ceftriaxone Blood cultures negative to date Acute respiratory failure with hypoxia thought to be related to pulmonary edema - given lasix x1 and s/p Bipap briefly in the ICU BNP elevated but CXR with no evidence of congestion echo with grade 1 diastolic dysfunction and slight decrease in EF at 42% seen by cardiology repeat CXR unremarkable - Chest CT pending pt has long smoking history, does not currently smoke and has no formal diagnosis of underlying lung dz. daughter states he is deconditioned and at baseline can only walk to mailbox and back without sob will start prn breathing treatments Hypokalemia resolved with replacement KISHORE SCr fluctuating, down to 1.8 vancomycin d/c lisinopril on hold follow renal function thrombocytopenia likely related to sepsis follow CBC Elevated LFTs ?r/t passive congestion vs sepsis no abdominal pain LFTs trending down presyncope in the setting of above essential hypertension: initially bp meds held due to sepsis BP starting to trend up will increase norvasc to 10 mg daily (on 5 TID at baseline) lisinopril on hold for now mood ativan on hold gastroesophageal reflux disease continue prilosec gout resume renal dosed allopurinol dvt ppx - lovenox Code status - changed to full code in ICU Requires ongoing inpatient stay for UTI requiring IV abx and respiratory failure requiring further work up, oxygen Time Spent With Patient Time: Total time managing care of this patient today ____ minutes. Quality Stroke Does the patient have a stroke diagnosis?: No VTE Prior VTE?: No VTE Risk Level:: Medical - moderate - high VTE Device Contraindication: Treatment Not Indicated VTE Drug Contraindication: N/A - Med Ordered
[2023-03-03 15:27] VITALS: BP 165/75; PULSE 81; RESP 18; TEMP 36.3; O2SAT 95
[2023-03-03 17:00] VITALS: O2SAT 95
[2023-03-03 19:29] VITALS: BP 152/72; PULSE 66; RESP 18; TEMP 36.3
[2023-03-03] MEDS: Melatonin 3 MG TABLET 6 MG PO (23:24)
[2023-03-03] MEDS: ondansetron HCL 4 MG/2 ML VIAL IVPUSH (23:37)
[2023-03-04] VITALS: BP 161/72; PULSE 60; RESP 16; TEMP 36.4; O2SAT 94
[2023-03-04 05:46] LABS: Hemoglobin 13.3 g/dl (14.0-18.0); PLT CLUMP 1; Red Cell Distribution Width 14.1 % (11.0-16.0)
[2023-03-04 05:47] LABS: Hematocrit 39.1 % (42.0-52.0); Mean Corpuscular Hemoglobin 31.7 pg (27.0-33.0); Mean Corpuscular Volume 93.1 fL (80.0-98.0); Mean Platelet Volume 11.6 fL (9.4-12.4)
[2023-03-04 05:48] LABS: Platelet Count 116 X10*3/uL (160-400); White Blood Count 10.1 X10*3/uL (4.8-10.8)
[2023-03-04 06:03] LABS: Anion Gap 12 (12-20); Blood Urea Nitrogen 42 mg/dL (9-16); Calcium 9.1 mg/dL (8.4-10.2); Carbon Dioxide 25 mmol/L (22-29); Chloride 106 mmol/L (96-108); Creatinine Clr Calc Pharmacy 50.1; Estimated Glomerular Filt Rate 57; Glucose Random 137 mg/dL (60-115); Potassium 3.7 mmol/L (3.3-5.1); Sodium 139 mmol/L (135-145)
[2023-03-04] MEDS: Omeprazole 20 MG CAPSULE.DR PO (06:35)
[2023-03-04 07:27] VITALS: BP 188/84; PULSE 60; RESP 18; TEMP 36.7; O2SAT 94
[2023-03-04 07:29] VITALS: BMI 32.5
[2023-03-04] MEDS: allopurinoL 300 MG TABLET 150 MG PO (10:30)
[2023-03-04] MEDS: amLODIPine Besylate 10 MG TABLET PO (10:30)
[2023-03-04] MEDS: 0.9 % Sodium Chloride Flush 3 ML SYRINGE IVFLUSH ×3 (10:31→23:39)
[2023-03-04] MEDS: cefTRIAXone sodium 1 GM in 0.9 % Sodium Chloride 50 ML IV (10:32)
[2023-03-04] MEDS: ondansetron HCL 4 MG/2 ML VIAL IVPUSH (11:00)
[2023-03-04 11:44] VITALS: BP 168/78; PULSE 65; RESP 18; TEMP 36.3; O2SAT 96
[2023-03-04] MEDS: methylPREDNISolone Sod Succ 40 MG/ML VIAL IVPUSH ×2 (11:54→23:39)
[2023-03-04 11:55] LABS: Alanine Aminotransferase 65 U/L (0-40); Albumin Level 3.3 g/dL (3.5-5.0); Alkaline Phosphatase 67 U/L (39-117); Aspartate Amino Transferase 98 U/L (5-37); Bilirubin Direct 0.3 mg/dL (0.0-0.5); Bilirubin Total 0.7 mg/dL (0.0-1.0); Total Protein 5.7 g/dL (6.5-8.0)
--- NOTE | 2023-03-04 14:58 | HO.PM.IMPN ---
Subjective Subjective Date of Service: 03/04/23 Interval History: seen and examined this morning follow up for pneumonia no overnight events not feeling well this morning, having some nausea denies sob Review of Systems Review of Systems: Yes all other systems are reviewed and are negative Constitutional Constitutional: Denies chills and Denies fever(s) Cardiovascular Cardiovascular: Denies chest pain, Denies palpitations and Denies dyspnea Respiratory Respiratory: Denies cough and Denies dyspnea Gastrointestinal Gastrointestinal: Denies abdominal pain, Reports nausea and Denies vomiting Endocrine Endocrine: Denies palpitations Physical Exam Vital Signs: Vital Signs: Last Vital Signs Temp 97.3 F 03/04/23 11:44 Pulse 65 03/04/23 11:44 Resp 18 03/04/23 11:44 BP 168/78 H 03/04/23 11:44 Pulse Ox 96 03/04/23 11:44 O2 Del Method Nasal Cannula 03/04/23 11:44 O2 Flow Rate 2 03/04/23 11:44 Oxygen Flow Rate 3 03/03/23 17:00 BMI result Body Mass Index 32.5 Const: General: comfortable, alert and awake Nutritional Appearance: overweight Orientation/consciousness: patient oriented x3 Resp: Other: scattered exp wheeze Effort & Inspection: able to speak in complete sentences, no respiratory distress and no use of accessory muscles Cardio: Rate: regular rate GI: Inspection: No distended Palpation (GI): Soft to palpation and nontender Neuro: General: patient oriented x3, moves all extremities and CN's II-XI intact bilaterally Extrem: General: Yes no pedal edema Objective Data Active Medications Acetaminophen (Acetaminophen 325 Mg Tablet) 650 mg PO Q6H PRN PRN Reason: Pain, Mild (Pain Scale 1-3) Last Admin: 03/03/23 23:24 Dose: 650 mg Documented By: DIAMOND Albuterol/Ipratropium (Albuterol/Iprat 2.5/0.5mg 3 Ml Ampul.Neb) 3 ml INHALE RQ6H WHILE AWAKE PRN PRN Reason: Shortness of Breath/Wheezing Last Admin: 03/02/23 15:38 Dose: 3 ml Documented By: JEN Allopurinol (Allopurinol 300 Mg Tablet) 150 mg PO DAILY [facility] Last Admin: 03/04/23 10:30 Dose: 150 mg Documented By: KWAME Amlodipine Besylate (Amlodipine Besylate 10 Mg Tablet) 10 mg PO DAILY [facility]; Protocol Last Admin: 03/04/23 10:30 Dose: 10 mg Documented By: KWAME Enoxaparin Sodium (Enoxaparin Sodium 40 Mg/0.4 Ml Syringe) 40 mg SUBCUT Q24H [facility] Last Admin: 03/03/23 23:38 Dose: 40 mg Documented By: DIAMOND Ceftriaxone Sodium 1 gm/ (Sodium Chloride) 50 mls @ 100 mls/hr IV Q24H [facility] Last Infusion: 03/04/23 11:07 Dose: Infused Documented By: SONAM Melatonin (Melatonin 3 Mg Tablet) 6 mg PO BEDTIME PRN PRN Reason: Insomnia Last Admin: 03/03/23 23:24 Dose: 6 mg Documented By: DIAMOND Methylprednisolone Sodium Succinate (Methylprednisolone Sod Succ 40 Mg/Ml Vial) 40 mg IVPUSH Q12H [facility] Last Admin: 03/04/23 11:54 Dose: 40 mg Documented By: SONAM Omeprazole (Omeprazole 20 Mg Capsule.Dr) 20 mg PO BID@0630,1630 [facility] Last Admin: 03/04/23 06:35 Dose: 20 mg Documented By: DIAMOND Ondansetron HCl (Ondansetron Hcl 4 Mg/2 Ml Vial) 4 mg IVPUSH Q8H PRN PRN Reason: Nausea and Vomiting Last Admin: 03/04/23 11:00 Dose: 4 mg Documented By: SONAM Polyethylene Glycol (Polyethylene Glycol 3350 17 Gm Powd.Pack) 17 gm PO DAILY [facility] Last Admin: 03/04/23 10:43 Dose: Not Given Documented By: KWAME Non-Admin Reason: Patient Refused Sodium Chloride (0.9 % Sodium Chloride Flush 3 Ml Syringe) 3 ml IVFLUSH QSHIFT [facility] Last Admin: 03/04/23 10:31 Dose: 3 ml Documented By: KWAME Labs 03/04/23 05:13 03/04/23 05:13 Labs: Laboratory Results - last 24 hr 03/04/23 05:13 MCV 93.1 MCH 31.7 MCHC 34.0 RDW 14.1 Plt Count 116 L MPV 11.6 Absolute Nucleated RBC 0.000 Nucleated RBC % (auto) 0.0 Anion Gap 12 Estim Creat Clear Calc 50.1 Estimated GFR 57 Random Glucose 137 H Calcium 9.1 Total Bilirubin 0.7 Direct Bilirubin 0.3 AST 98 H ALT 65 H Alkaline Phosphatase 67 Total Protein 5.7 L Albumin 3.3 L Assessment and Plan (1) UTI (urinary tract infection): Status: Acute Plan This is a 82-year-old male with pertinent history of essential hypertension, mood disorder, gastroesophageal reflux disease who presents to the emergency department for evaluation of generalized weakness, dizziness and burning micturition found to have sepsis due to UTI. Hospital course complicated by respiratory failure thought to be related to pulmonary edema necessitating brief stay in ICU for bipap. sepsis due to UTI white count trending down, afebrile Urine culture growing e.coli, continue IV ceftriaxone Blood cultures negative to date Acute respiratory failure with hypoxia initially thought to be related to pulmonary edema - given lasix x1 and s/p Bipap briefly in the ICU BNP elevated but CXR with no evidence of congestion echo with grade 1 diastolic dysfunction and slight decrease in EF at 42% seen by cardiology, does not appear to be in chf at this time repeat CXR unremarkable Chest CT with b/l lower lobe consolidation concerning for pneumonia - will add azithromycin to ceftriaxone pt has long smoking history, does not currently smoke and has no formal diagnosis of underlying lung dz. - will start IV solu-medrol for presumed copd exacerbation continue prn breathing treatments Pulmonary nodule 9mm pulm nodule seen on chest CT recommend repeat chest CT in 3 months Hypokalemia resolved with replacement KISHORE SCr fluctuating, down to 1.2, near baseline vancomycin d/c lisinopril on hold follow renal function thrombocytopenia likely related to sepsis platelets have remained stable Elevated LFTs ?r/t passive congestion vs sepsis no abdominal pain LFTs trending down presyncope in the setting of above essential hypertension: initially bp meds held due to sepsis BP starting to trend up will increase norvasc to 10 mg daily (on 5 TID at baseline) lisinopril on hold for now mood ativan on hold gastroesophageal reflux disease continue prilosec gout resume renal dosed allopurinol dvt ppx - lovenox Code status - changed to full code in ICU Requires ongoing inpatient stay for UTI requiring IV abx and respiratory failure requiring further work up, oxygen Time Spent With Patient Time: Total time managing care of this patient today ____ minutes. Quality Stroke Does the patient have a stroke diagnosis?: No VTE Prior VTE?: No VTE Risk Level:: Medical - moderate - high VTE Device Contraindication: Treatment Not Indicated VTE Drug Contraindication: N/A - Med Ordered
[2023-03-04 15:08] VITALS: BP 169/79; PULSE 67; RESP 14; TEMP 36.3; O2SAT 95
[2023-03-04] MEDS: Azithromycin 500 MG in 0.9 % Sodium Chloride 250 ML 125 MG IV (16:16)
[2023-03-04 19:21] VITALS: BP 164/83; PULSE 82; RESP 18; TEMP 36.8; O2SAT 95
[2023-03-04 23:19] VITALS: BP 151/82; PULSE 68; RESP 18; TEMP 37; O2SAT 94
[2023-03-04] MEDS: Enoxaparin Sodium 40 MG/0.4 ML SYRINGE SUBCUT (23:59)
[2023-03-05 03:44] VITALS: BP 138/80; PULSE 69; RESP 18; TEMP 36.1; O2SAT 95
[2023-03-05] MEDS: Omeprazole 20 MG CAPSULE.DR PO (05:48)
[2023-03-05 06:00] VITALS: BMI 33.6
[2023-03-05 07:36] VITALS: BP 173/84; PULSE 66; RESP 20; TEMP 36.7; O2SAT 95
[2023-03-05] MEDS: allopurinoL 300 MG TABLET 150 MG PO (07:46)
[2023-03-05] MEDS: 0.9 % Sodium Chloride Flush 3 ML SYRINGE IVFLUSH ×2 (07:46→15:48)
[2023-03-05] MEDS: amLODIPine Besylate 10 MG TABLET PO (07:46)
--- NOTE | 2023-03-05 08:11 | HO.PM.IMPN ---
Subjective Subjective Date of Service: 03/05/23 Interval History: Seen in f/u for acute hypoxic resp failure. Overall doing much better, presently sating 96 to 97 on 2 litter per my check.. Has no SOB, slept well Physical Exam Vital Signs: Vital Signs: Last Vital Signs Temp 98.0 F 03/05/23 07:36 Pulse 66 03/05/23 07:36 Resp 20 03/05/23 07:36 BP 173/84 H 03/05/23 07:36 Pulse Ox 95 03/05/23 07:36 O2 Del Method Nasal Cannula 03/05/23 07:36 O2 Flow Rate 4 03/05/23 07:36 Oxygen Flow Rate 3 03/04/23 17:00 BMI result Body Mass Index 33.6 Const: Other: General: AO X 3, no acute distress Resp: CTA bilateral CVS: S1,S2,RRR GI: +BS, NT, no distention Skin: No rash Neuro: motor grossly intact Psych: appropriate affect Objective Data Active Medications Acetaminophen (Acetaminophen 325 Mg Tablet) 650 mg PO Q6H PRN PRN Reason: Pain, Mild (Pain Scale 1-3) Last Admin: 03/03/23 23:24 Dose: 650 mg Documented By: DIAMOND Albuterol/Ipratropium (Albuterol/Iprat 2.5/0.5mg 3 Ml Ampul.Neb) 3 ml INHALE RQ6H WHILE AWAKE PRN PRN Reason: Shortness of Breath/Wheezing Last Admin: 03/02/23 15:38 Dose: 3 ml Documented By: JEN Allopurinol (Allopurinol 300 Mg Tablet) 150 mg PO DAILY [facility] Last Admin: 03/05/23 07:46 Dose: 150 mg Documented By: SONAM Amlodipine Besylate (Amlodipine Besylate 10 Mg Tablet) 10 mg PO DAILY [facility]; Protocol Last Admin: 03/05/23 07:46 Dose: 10 mg Documented By: SONAM Enoxaparin Sodium (Enoxaparin Sodium 40 Mg/0.4 Ml Syringe) 40 mg SUBCUT Q24H [facility] Last Admin: 03/04/23 23:59 Dose: 40 mg Documented By: DIAMOND Ceftriaxone Sodium 1 gm/ (Sodium Chloride) 50 mls @ 100 mls/hr IV Q24H [facility] Last Infusion: 03/04/23 11:07 Dose: Infused Documented By: SONAM Azithromycin 500 mg/ Sodium (Chloride) 250 mls @ 125 mls/hr IV Q24H [facility] Last Infusion: 03/04/23 18:25 Dose: Infused Documented By: SONAM Melatonin (Melatonin 3 Mg Tablet) 6 mg PO BEDTIME PRN PRN Reason: Insomnia Last Admin: 03/03/23 23:24 Dose: 6 mg Documented By: DIAMOND Methylprednisolone Sodium Succinate (Methylprednisolone Sod Succ 40 Mg/Ml Vial) 40 mg IVPUSH Q12H [facility] Last Admin: 03/04/23 23:39 Dose: 40 mg Documented By: DIAMOND Omeprazole (Omeprazole 20 Mg Capsule.Dr) 20 mg PO BID@0630,1630 [facility] Last Admin: 03/05/23 05:48 Dose: 20 mg Documented By: DIAMOND Ondansetron HCl (Ondansetron Hcl 4 Mg/2 Ml Vial) 4 mg IVPUSH Q8H PRN PRN Reason: Nausea and Vomiting Last Admin: 03/04/23 11:00 Dose: 4 mg Documented By: SONAM Polyethylene Glycol (Polyethylene Glycol 3350 17 Gm Powd.Pack) 17 gm PO DAILY [facility] Last Admin: 03/05/23 07:51 Dose: Not Given Documented By: SONAM Non-Admin Reason: Patient Refused Sodium Chloride (0.9 % Sodium Chloride Flush 3 Ml Syringe) 3 ml IVFLUSH QSHIFT [facility] Last Admin: 03/05/23 07:46 Dose: 3 ml Documented By: SONAM Labs 03/04/23 05:13 03/04/23 05:13 Labs: Laboratory Results - last 24 hr 03/04/23 05:13 Total Bilirubin 0.7 Direct Bilirubin 0.3 AST 98 H ALT 65 H Alkaline Phosphatase 67 Total Protein 5.7 L Albumin 3.3 L Assessment and Plan (1) UTI (urinary tract infection): Status: Acute Plan 82/M w/ HTN, mood disorder, GERD who presented to the ED w/ generalized weakness, dizziness and dysurin. He had sepsis d/t UTI. Hospital course complicated by respiratory failure d/t pulmonary edema and was briefly treated in the ICU on BiPAP sepsis due to E.coli UTI, sensitive to ceftriaoxone. Ceftriaxone 03/03. Sepsis resolved. Acute respiratory failure with hypoxia--initial concern for CHF, treated with Lasix and BiPAP in ICU, CXR no CHF, cardiology does think there is acute chf. He is now been treated for PNA with Ceft+Azithro. O2 being weaned off. IV steroid for Presumed COPD. DC IV Steroid, add Prednosone for total of 5 days of Oxygen, consider home O2 eval 9 mm Pulmonary nodule on CT, recommendation= repeat in 3 mos Hypokalemia resolved with replacement KISHORE--resolving, holding lisinopril thrombocytopenia--realated to sepsis, platlets stable Elevated LFTs ?r/t passive congestion vs sepsis no abdominal pain LFTs trending down presyncope in the setting of above essential hypertension: continue Norvasc (change 10 in am, 5 at night was 5 tid at home), restart Lisinopril if renal function stable. mood ativan on hold gastroesophageal reflux disease continue prilosec gout resume renal dosed allopurinol dvt ppx - lovenox Code status - changed to full code in ICU Requires ongoing inpatient stay for UTI requiring IV abx and respiratory failure requiring further work up, oxygen Time Spent With Patient Time: Total time managing care of this patient today ____ minutes. Quality Stroke Does the patient have a stroke diagnosis?: No VTE Prior VTE?: No VTE Risk Level:: Medical - moderate - high VTE Device Contraindication: Treatment Not Indicated VTE Drug Contraindication: N/A - Med Ordered
[2023-03-05] MEDS: cefTRIAXone sodium 1 GM in 0.9 % Sodium Chloride 50 ML IV (09:36)
[2023-03-05] MEDS: methylPREDNISolone Sod Succ 40 MG/ML VIAL IVPUSH ×2 (11:08→22:35)
[2023-03-05 12:00] VITALS: BP 146/85; PULSE 75; RESP 20; O2SAT 94
[2023-03-05 15:38] VITALS: BP 145/77; PULSE 66; RESP 16; TEMP 36.5; O2SAT 94
[2023-03-05] MEDS: Azithromycin 500 MG in 0.9 % Sodium Chloride 250 ML 125 MG IV (15:47)
[2023-03-05 17:00] VITALS: O2SAT 94
[2023-03-05 19:20] VITALS: BP 140/76; PULSE 70; RESP 16; TEMP 36.3; O2SAT 94
[2023-03-05] MEDS: Enoxaparin Sodium 40 MG/0.4 ML SYRINGE SUBCUT (23:35)
[2023-03-05] MEDS: Melatonin 3 MG TABLET 6 MG PO (23:38)
[2023-03-06] VITALS (7 sets, daily range): BP systolic 150–197; BP diastolic 71–88; PULSE 68–84; RESP 16–18; TEMP 36.1–36.9; O2SAT 91–96
[2023-03-06] MEDS: 0.9 % Sodium Chloride Flush 3 ML SYRINGE IVFLUSH ×4 (00:02→20:29)
--- NOTE | 2023-03-06 01:27 | PC.NURSE ---
Addendum entered by Odalis Damon RN 03/06/23 05:41: @ 0432 pt in room 347 O2 is in the high 80's, respiratory and [employer] Karon text me about Pt's O2 Sat. Dr. Fu approved 3L [place]. Addendum entered by Odalis Damon RN 03/06/23 01:53: @ 2348 pt in room 347 bp reading was 191/92, manual bp 182/78, O2 is 96. Dr. Fu was notified, he replied, okay. Addendum entered by Odalis Damon RN 03/06/23 01:43: @ [address] Mccrary when should i notify him about pt in room 347 O2 Sats, Dr. Fu asked me was pt symptomatic. I replied, pt is asleep when awake is asymptomatic.Dr. Fu replied unless symptomatic he will otherwise let physician know in morning to start oral meds. Addendum entered by Odalis Damon RN 03/06/23 01:42: @0051 pt in room [address] is at O[address] 88[address] Fu was notified, He replied, okay. Original Note: @0040 pt o2 was at 88. Gilberto Robertson asked me, when should he alert me about 347 o2. I replied that i just text Dr. Fu and was waiting on his response. @0125 i replied back to Gilberto Robertson that Dr. Fu asked me were there any symptoms. I replied to Dr. Fu that pt was asleep and when awake was asymptomatic. So please cont to let me know when pt O2 is abnormal. Gilberto replied,ok sounds good, so right now it's not a good plethy but he's at 87/88. I replied that i notified Dr. Fu and he said unless Pt has any symptoms he will notify DrCharmaine in the morning to give oral meds.
[2023-03-06] MEDS: Omeprazole 20 MG CAPSULE.DR PO (05:28)
[2023-03-06] MEDS: cefTRIAXone sodium 1 GM in 0.9 % Sodium Chloride 50 ML IV (09:18)
[2023-03-06] MEDS: allopurinoL 300 MG TABLET 150 MG PO (09:19)
[2023-03-06] MEDS: amLODIPine Besylate 10 MG TABLET PO (09:19)
[2023-03-06] MEDS: lisinopriL 10 MG TABLET PO (09:19)
[2023-03-06] MEDS: polyethylene glycoL 3350 17 GM POWD.PACK PO (09:19)
--- NOTE | 2023-03-06 11:02 | P.PNIM_ITS ---
Subjective Subjective Date of Service: 03/06/23 Interval History: Seen in f/u for acute hypoxic resp failure. Overall doing much better, but deconditioned and still using O2 Physical Exam 2 Vital Signs: Vital Signs: Last Vital Signs Temp 97.5 F 03/06/23 07:28 Pulse 70 03/06/23 07:28 Resp 16 03/06/23 07:28 BP 197/88 H 03/06/23 07:28 Pulse Ox 95 03/06/23 07:28 O2 Del Method Nasal Cannula 03/06/23 07:28 O2 Flow Rate 3 03/06/23 07:28 Oxygen Flow Rate 1.5 03/05/23 17:00 BMI result Body Mass Index 33.6 Const: Other: General: AO X 3, no acute distress Resp: CTA bilateral CVS: S1,S2,RRR GI: +BS, NT, no distention Skin: No rash Neuro: motor grossly intact Psych: appropriate affect Objective Data Active Medications Acetaminophen (Acetaminophen 325 Mg Tablet) 650 mg PO Q6H PRN PRN Reason: Pain, Mild (Pain Scale 1-3) Last Admin: 03/03/23 23:24 Dose: 650 mg Documented By: DIAMOND Albuterol/Ipratropium (Albuterol/Iprat 2.5/0.5mg 3 Ml Ampul.Neb) 3 ml INHALE RQ6H WHILE AWAKE PRN PRN Reason: Shortness of Breath/Wheezing Last Admin: 03/02/23 15:38 Dose: 3 ml Documented By: JEN Allopurinol (Allopurinol 300 Mg Tablet) 150 mg PO DAILY [facility] Last Admin: 03/06/23 09:19 Dose: 150 mg Documented By: REGULO Amlodipine Besylate (Amlodipine Besylate 10 Mg Tablet) 10 mg PO DAILY [facility]; Protocol Last Admin: 03/06/23 09:19 Dose: 10 mg Documented By: REGULO Amlodipine Besylate (Amlodipine Besylate 5 Mg Tablet) 5 mg PO BEDTIME [facility]; Protocol Enoxaparin Sodium (Enoxaparin Sodium 40 Mg/0.4 Ml Syringe) 40 mg SUBCUT Q24H [facility] Last Admin: 03/05/23 23:35 Dose: 40 mg Documented By: CHARIS Ceftriaxone Sodium 1 gm/ (Sodium Chloride) 50 mls @ 100 mls/hr IV Q24H [facility] Last Admin: 03/06/23 09:18 Dose: 100 mls/hr Documented By: REGULO Azithromycin 500 mg/ Sodium (Chloride) 250 mls @ 125 mls/hr IV Q24H [facility] Last Infusion: 03/05/23 19:07 Dose: Infused Documented By: SONAM Lisinopril (Lisinopril 10 Mg Tablet) 10 mg PO DAILY [facility]; Protocol Last Admin: 03/06/23 09:19 Dose: 10 mg Documented By: REGULO Melatonin (Melatonin 3 Mg Tablet) 6 mg PO BEDTIME PRN PRN Reason: Insomnia Last Admin: 03/05/23 23:38 Dose: 6 mg Documented By: CHARIS Methylprednisolone Sodium Succinate (Methylprednisolone Sod Succ 40 Mg/Ml Vial) 40 mg IVPUSH Q12H [facility] Last Admin: 03/05/23 22:35 Dose: 40 mg Documented By: CHARIS Omeprazole (Omeprazole 20 Mg Capsule.) 20 mg PO BID@0630,1630 [facility] Last Admin: 03/06/23 05:28 Dose: 20 mg Documented By: CHARIS Ondansetron HCl (Ondansetron Hcl 4 Mg/2 Ml Vial) 4 mg IVPUSH Q8H PRN PRN Reason: Nausea and Vomiting Last Admin: 03/04/23 11:00 Dose: 4 mg Documented By: SONAM Polyethylene Glycol (Polyethylene Glycol 3350 17 Gm Powd.Pack) 17 gm PO DAILY [facility] Last Admin: 03/06/23 09:19 Dose: 17 gm Documented By: REGULO Sodium Chloride (0.9 % Sodium Chloride Flush 3 Ml Syringe) 3 ml IVFLUSH QSHIFT [facility] Last Admin: 03/06/23 09:18 Dose: 3 ml Documented By: REGULO Labs 03/04/23 05:13 03/04/23 05:13 Microbiology Microbiology Results: Microbiology 03/01/23 00:23 Blood Culture - Final Blood - Venous No growth after 5 days. 03/01/23 00:23 Blood Culture - Final Blood - Venous No growth after 5 days. Assessment and Plan (1) UTI (urinary tract infection): Status: Acute Plan 82/M w/ HTN, mood disorder, GERD who presented to the ED w/ generalized weakness, dizziness and dysurin. He had sepsis d/t UTI. Hospital course complicated by respiratory failure d/t pulmonary edema and was briefly treated in the ICU on BiPAP sepsis due to E.coli UTI, sensitive to ceftriaoxone. Ceftriaxone since 03/03. Sepsis resolved. Acute respiratory failure with hypoxia--initial concern for CHF, treated with Lasix and BiPAP in ICU, CXR no CHF, cardiology does think there is acute chf. He is now been treated for PNA with Ceft+Azithro. O2 being weaned off. IV steroid for Presumed COPD. DC IV Steroid, add Prednosone for total of 5 days of Oxygen,home O2 eval 9 mm [address] nodule on CT, recommendation= repeat in 3 mos Hypokalemia resolved with replacement KISHORE--resolving, resume lisinopril thrombocytopenia--realated to sepsis, platlets stable Elevated LFTs ?r/t passive congestion vs sepsis no abdominal pain LFTs trending down presyncope in the setting of above essential hypertension: continue Norvasc (change 10 in am, 5 at night was 5 tid at home), restart Lisinopril if renal function stable. mood ativan on hold gastroesophageal reflux disease continue prilosec gout resume renal dosed allopurinol dvt ppx - lovenox Code status - changed to full code in ICU PT eval Requires ongoing inpatient stay for UTI requiring IV abx and respiratory failure requiring further work up, oxygen Time Spent With Patient Time: Total time managing care of this patient today ____ minutes. Quality Stroke Does the patient have a stroke diagnosis?: No VTE Prior VTE?: No VTE Risk Level:: Medical - moderate - high VTE Device Contraindication: Treatment Not Indicated VTE Drug Contraindication: N/A - Med Ordered
[2023-03-06] MEDS: methylPREDNISolone Sod Succ 40 MG/ML VIAL IVPUSH ×2 (11:43→23:21)
[2023-03-06] MEDS: ondansetron HCL 4 MG/2 ML VIAL IVPUSH (11:47)
--- NOTE | 2023-03-06 13:22 | MHC.CM.PN ---
per rounds pt to have pt and 02 eval prior to dc
[2023-03-06] MEDS: Azithromycin 500 MG in 0.9 % Sodium Chloride 250 ML 125 MG IV (15:48)
[2023-03-06] MEDS: LORazepam 0.5 MG TABLET PO ×2 (15:48→21:10)
[2023-03-06] MEDS: amLODIPine Besylate 5 MG TABLET PO (20:29)
[2023-03-06] MEDS: Enoxaparin Sodium 40 MG/0.4 ML SYRINGE SUBCUT (23:21)
[2023-03-07] VITALS (7 sets, daily range): BP systolic 135–180; BP diastolic 62–80; PULSE 65–84; RESP 16–24; TEMP 36.4–36.8; O2SAT 93–96
[2023-03-07] MEDS: Omeprazole 20 MG CAPSULE.DR PO (05:17)
[2023-03-07] MEDS: allopurinoL 300 MG TABLET 150 MG PO (08:44)
[2023-03-07] MEDS: lisinopriL 10 MG TABLET PO (08:44)
[2023-03-07] MEDS: amLODIPine Besylate 10 MG TABLET PO (08:44)
[2023-03-07] MEDS: 0.9 % Sodium Chloride Flush 3 ML SYRINGE IVFLUSH ×3 (08:45→21:54)
[2023-03-07] MEDS: polyethylene glycoL 3350 17 GM POWD.PACK PO (08:45)
[2023-03-07] MEDS: LORazepam 0.5 MG TABLET PO ×2 (08:45→22:45)
[2023-03-07] MEDS: cefTRIAXone sodium 1 GM in 0.9 % Sodium Chloride 50 ML IV (08:49)
[2023-03-07] MEDS: methylPREDNISolone Sod Succ 40 MG/ML VIAL IVPUSH ×2 (11:39→22:46)
[2023-03-07] MEDS: Azithromycin 500 MG in 0.9 % Sodium Chloride 250 ML 125 MG IV (16:13)
[2023-03-07] MEDS: amLODIPine Besylate 5 MG TABLET PO (21:52)
[2023-03-07] MEDS: Melatonin 3 MG TABLET 6 MG PO (21:52)
[2023-03-08] MEDS: Enoxaparin Sodium 40 MG/0.4 ML SYRINGE SUBCUT (01:41)
[2023-03-08 04:00] VITALS: BP 166/81; PULSE 67; RESP 19; TEMP 36.7; O2SAT 93
[2023-03-08] MEDS: Omeprazole 20 MG CAPSULE.DR PO (05:21)
[2023-03-08 07:00] VITALS: BP 152/79; PULSE 64; RESP 19; TEMP 36.6; O2SAT 92
--- NOTE | 2023-03-08 07:37 | P.CDIM_ITS ---
PROVIDER RESPONSE TEXT: To clarify, the appropriate diagnosis supported by the clinical indicators: Systolic: acute QUERY TEXT: PHYSICIAN'S DOCUMENTATION REQUEST Date of Query: 03/07/2023 08:27 AM EDT Patient Name: LAYO EATON Admit Date: 03/01/2023 Dear Jairo Mendez, A review of the medical record indicates additional documentation may be needed. Please review below and update the documentation accordingly. Clinical Indicators: Per Hospitalist Progress Note 03/06/23: initial concern for CHF, treated with Lasix and BiPAP in ICU, CXR no CHF, cardiology does think there is acute CHF Please provide further specificity regarding the most likely type of CHF you are evaluating, treating , or monitoring. Systolic Please specify if Acute, Chronic, or Acute on chronic, or Unable to determine Diastolic Please specify if Acute, Chronic, or Acute on chronic, or Unable to determine Combined Systolic/Diastolic Please specify if Acute, Chronic, or Acute on chronic, or Unable to determine Other (explain)Clinically unable to determine (explain)Thank you, May Bernabe RN Use of terms such as suspected, likely, concern for, or probable (associated with a specific diagnosi s that is being evaluated, monitored, or treated as if it exists) are acceptable and can be coded in the inpatient se tting, when documented at the time of discharge. Please use your independent medical judgment in providing your response. THIS QUERY IS PART OF THE PERMANENT MEDICAL RECORD
--- NOTE | 2023-03-08 08:31 | HO.PM.IMPN ---
Subjective Subjective Date of Service: 03/08/23 Interval History: No new issues, maintaining O2 sat on room air Physical Exam Vital Signs: Vital Signs: Last Vital Signs Temp 98 F 03/08/23 07:00 Pulse 64 03/08/23 07:00 Resp 19 03/08/23 07:00 BP 152/79 H 03/08/23 07:00 Pulse Ox 92 03/08/23 07:00 O2 Del Method Room Air 03/08/23 07:00 O2 Flow Rate 3 03/07/23 07:45 Oxygen Flow Rate 3 03/06/23 17:00 BMI result Body Mass Index 33.6 Const: Other: General: AO X 3, no acute distress Resp: CTA bilateral CVS: S1,S2,RRR GI: +BS, NT, no distention Skin: No rash Neuro: motor grossly intact Psych: appropriate affect Objective Data Active Medications Acetaminophen (Acetaminophen 325 Mg Tablet) 650 mg PO Q6H PRN PRN Reason: Pain, Mild (Pain Scale 1-3) Last Admin: 03/03/23 23:24 Dose: 650 mg Documented By: DIAMOND Albuterol/Ipratropium (Albuterol/Iprat 2.5/0.5mg 3 Ml Ampul.Neb) 3 ml INHALE RQ6H WHILE AWAKE PRN PRN Reason: Shortness of Breath/Wheezing Last Admin: 03/02/23 15:38 Dose: 3 ml Documented By: JEN Allopurinol (Allopurinol 300 Mg Tablet) 150 mg PO DAILY [facility] Last Admin: 03/07/23 08:44 Dose: 150 mg Documented By: RACHEL Amlodipine Besylate (Amlodipine Besylate 10 Mg Tablet) 10 mg PO DAILY [facility]; Protocol Last Admin: 03/07/23 08:44 Dose: 10 mg Documented By: RACHEL Amlodipine Besylate (Amlodipine Besylate 5 Mg Tablet) 5 mg PO BEDTIME [facility]; Protocol Last Admin: 03/07/23 21:52 Dose: 5 mg Documented By: CHANEL Enoxaparin Sodium (Enoxaparin Sodium 40 Mg/0.4 Ml Syringe) 40 mg SUBCUT Q24H [facility] Last Admin: 03/08/23 01:41 Dose: 40 mg Documented By: CHANEL Ceftriaxone Sodium 1 gm/ (Sodium Chloride) 50 mls @ 100 mls/hr IV Q24H [facility] Last Infusion: 03/07/23 09:24 Dose: Infused Documented By: RACHEL Azithromycin 500 mg/ Sodium (Chloride) 250 mls @ 125 mls/hr IV Q24H [facility] Last Infusion: 03/07/23 18:23 Dose: Infused Documented By: RACHEL Lisinopril (Lisinopril 10 Mg Tablet) 10 mg PO DAILY [facility]; Protocol Last Admin: 03/07/23 08:44 Dose: 10 mg Documented By: RACHEL Lorazepam (Lorazepam 0.5 Mg Tablet) 0.5 mg PO TID PRN PRN Reason: anxiety/restlessness Last Admin: 03/07/23 22:45 Dose: 0.5 mg Documented By: CHANEL Melatonin (Melatonin 3 Mg Tablet) 6 mg PO BEDTIME PRN PRN Reason: Insomnia Last Admin: 03/07/23 21:52 Dose: 6 mg Documented By: CHANEL Omeprazole (Omeprazole 20 Mg Capsule.) 20 mg PO BID@0630,1630 [facility] Last Admin: 03/08/23 05:21 Dose: 20 mg Documented By: CHANEL Ondansetron HCl (Ondansetron Hcl 4 Mg/2 Ml Vial) 4 mg IVPUSH Q8H PRN PRN Reason: Nausea and Vomiting Last Admin: 03/06/23 11:47 Dose: 4 mg Documented By: BRENTON Polyethylene Glycol (Polyethylene Glycol 3350 17 Gm Powd.Pack) 17 gm PO DAILY [facility] Last Admin: 03/07/23 08:45 Dose: 17 gm Documented By: RACHEL Sodium Chloride (0.9 % Sodium Chloride Flush 3 Ml Syringe) 3 ml IVFLUSH QSHIFT [facility] Last Admin: 03/07/23 21:54 Dose: 3 ml Documented By: CHANEL Labs 03/04/23 05:13 03/04/23 05:13 Assessment and Plan (1) UTI (urinary tract infection): Status: Acute Plan 82/M w/ HTN, mood disorder, GERD who presented to the ED w/ generalized weakness, dizziness and dysurin. He had sepsis d/t UTI. Hospital course complicated by respiratory failure d/t pulmonary edema and was briefly treated in the ICU on BiPAP sepsis due to E.coli UTI, sensitive to ceftriaoxone. Ceftriaxone since 03/03. Sepsis resolved. Changed to PO Ceftin for total of 7 days Acute respiratory failure with hypoxia--initial concern for CHF, treated with Lasix and BiPAP in ICU, CXR no CHF, cardiology does not think there is acute chf. He is now been treated for PNA with Ceft+Azithro. O2 being weaned off. IV steroid for Presumed COPD. DC IV Steroid, add Prednosone for total of 5 days of Oxygen, home O2 eval if going home 9 [address] nodule on CT, recommendation= repeat in 3 mos Hypokalemia resolved with replacement KISHORE--resolving, resume lisinopril thrombocytopenia--realated to sepsis, platlets stable Elevated LFTs ?r/t passive congestion vs sepsis no abdominal pain LFTs trending down presyncope in the setting of above essential hypertension: continue Norvasc (change 10 in am, 5 at night was 5 tid at home), restart Lisinopril if renal function stable. mood ativan on hold gastroesophageal reflux disease continue prilosec gout resume renal dosed allopurinol dvt ppx - lovenox Code status - changed to full code in ICU PT eval Requires ongoing inpatient stay for UTI requiring IV abx and respiratory failure requiring further work up, oxygen Time Spent With Patient Time: Total time managing care of this patient today ____ minutes. Quality Stroke Does the patient have a stroke diagnosis?: No VTE Prior VTE?: No VTE Risk Level:: Medical - moderate - high VTE Device Contraindication: Treatment Not Indicated VTE Drug Contraindication: N/A - Med Ordered
[2023-03-08] MEDS: polyethylene glycoL 3350 17 GM POWD.PACK PO (09:37)
[2023-03-08] MEDS: allopurinoL 300 MG TABLET 150 MG PO (09:37)
[2023-03-08] MEDS: amLODIPine Besylate 10 MG TABLET PO (09:38)
[2023-03-08] MEDS: cefuroxime axetiL 500 MG TABLET PO (09:38)
[2023-03-08] MEDS: lisinopriL 10 MG TABLET PO (09:38)
[2023-03-08] MEDS: 0.9 % Sodium Chloride Flush 3 ML SYRINGE IVFLUSH (09:39)
--- NOTE | 2023-03-08 11:06 | P.DS_ITS ---
DS: Providers Provider Date of Service: 03/08/23 Date of admission: 03/01/23 00:14 Primary care physician: Dario Mason MD Consults: 03/02/23 09:24 Consult to Cardiology Routine Consulting Provider: [facility] Reason for consultation: chf DS: Diagnosis Discharge Diagnosis (1) UTI (urinary tract infection): Status: Acute DS: Summary Hospital Course Hospital Course: Chief Complaint: Generalized weakness this is a 82-year-old male with pertinent history of essential hypertension, mood disorder, gastroesophageal reflux disease who presents to the emergency department for evaluation of generalized weakness, dizziness and burning micturition. Patient states he has been feeling week for the last 3 weeks. He was having some urgency and hesitancy. Patient was seen outpatient and told that he does not have urine infection. He also had a cystoscopy done 3 weeks ago which apparently was normal. Patient presents today as he was having dizziness/lightheadedness as he stood up. Does endorse burning micturition and generalized weakness. Also has been having chills. No documented fever. No chest discomfort, shortness of breath, palpitations, changes in bowel habits. In the emergency department, patient was found to be septic and urine concerning for UTI. Hospital course: The patient presented with generalized weakness, urgency to urination, and was foud to have UTI and sepsis and was given IV fluid per sepsis protocol. He subsequently developped signficant shortness of breath diaphoretic, agitated and Oxygen saturation had dropped to 83% on room air and on examination had diffuse wheeze and CXR confirmed pulemonary edema. He was given breathing treatment by Nebulize, IV diuretics, IV morphine for dyspnea and was put on BiPAP and consideration for ICU admission. He improved quickly on the BIPAP and was taken off and admitted to medical floor rest of his treatment. Acute hypoxic respriatory was due to multifactorial acute systolic heart failure which was treated IV Lasix and BiPAP. He was evaluted by cardiology and had an echocardiogram showing EF of 42%. He presently well compensated and is no longer on diuretics. Pneumonia --Treated with ceftriaxone and Azithromycin, he's been afribrile, Initial WBC was 26K and had come down to 10 as of 03/04/23 COPD with acute exacerbation--treated with IV steroid, bronchocilators by Nebulize and Oxygen. He has been sucesfuly weaned of Oxygen, and will transitioned to oral steroid for for another 3 days sepsis due to E.coli UTI, sensitive to ceftriaoxone. He was treated with Ceftriaxone since 03/03. Sepsis resolved. Will transition to oral Ceftin to complete treatment for the UTI and pneumonia 9 [address] nod[address] on CT, recommendation= repeat in 3 mos Hypokalemia resolved with replacement KISHORE--resolving, holding lisinopril thrombocytopenia--realated to sepsis, platlets stable Elevated LFTs ?r/t passive congestion vs sepsis no abdominal pain LFTs trending down presyncope in the setting of above essential hypertension: continue Norvasc (change 10 in am, 5 at night was 5 tid at home), restarted Lisinopril if renal function stable. mood --ativan PRN gastroesophageal reflux disease continue prilosec gout--continue allopurinol Patient was evaluated by PT with recommendation for short term rehab which she's is agreable to Time Spent with Patient Time attestation: Total time managing care of this patient today ____ minutes. Discharge coordination time: Greater than 30 minutes Quality: Safe Use of Opioids Does Pt have an Active Cancer Diagnosis on the Problem List?: No Quality: Stroke Does the patient have a stroke diagnosis?: No Physical Exam Vital Signs: Vital Signs: Last Vital Signs Temp 98 F 03/08/23 07:00 Pulse 64 03/08/23 07:00 Resp 19 03/08/23 07:00 BP 152/79 H 03/08/23 07:00 Pulse Ox 92 03/08/23 07:00 O2 Del Method Room Air 03/08/23 07:00 O2 Flow Rate 3 03/07/23 07:45 Oxygen Flow Rate 3 03/06/23 17:00 BMI result Body Mass Index 33.6 Discharge Plan Discharge Anticipated Discharge Date/Time: 03/08/23 11:33 Patient Disposition: Xfer SNF Discharge Diagnosis: Acute respiratory failure with hypoxia, pneumonia, Referrals: [facility] [Other] - 1 Week [facility] [Outside] ([facility] following for post rehab services if indicated ) Dario Mason MD [Primary Care Provider] - 1 Week Discharge Medications: New cefuroxime axetil 500 mg Tablet 500 mg PO Q12H Qty: 9 0RF prednisone 10 mg tablet 10 mg PO DAILY Qty: 3 0RF furosemide [Lasix] 20 mg tablet 20 mg PO DAILY Qty: 30 0RF amlodipine 10 mg Tablet 10 mg PO DAILY Qty: 30 0RF Protocol: Hold for SBP< HOLD for SBP < : 90 Rx Instructions: in the morning amlodipine 5 mg Tablet 5 mg PO BEDTIME Qty: 30 0RF Protocol: Hold for SBP< HOLD for SBP < : 90 lorazepam 0.5 mg Tablet 0.5 mg PO TID PRN (Reason: Anxiety/Restlessness) Qty: 30 0RF lisinopril 20 mg tablet 20 mg PO DAILY Qty: 30 0RF Continued omeprazole 20 mg capsule,delayed release(DR/EC) 20 mg PO BID allopurinol 300 mg tablet 300 mg PO DAILY Discontinued lorazepam 0.5 mg tablet 0.5 mg PO TID lisinopril 10 mg tablet 10 mg PO BEDTIME amlodipine 5 mg tablet 5 mg PO TID lisinopril 10 mg tablet 20 mg PO DAILY Discharge Orders: Discharge Order (Routine); Ordered 03/08/23 Ordered By: Jairo Mendez Diet: Advance to usual diet Activity on Discharge: As tolerated Stand Alone Forms: Patient Portal Discharge page Care Plan Goals: Recovery from acute hypoxic respriatory failure, pneumonia and deconditioning Health Concerns: Decondition, acute respiratory failure with hypoxia Plan of Treatment: Take CEfuroxime as directed to complete course of antibiotic for pneumonia take Prednisone and use inhalers for copd take lasix for heart failure Assessment: See above Discharge Date/Time: 03/08/23 18:40
[2023-03-08] MEDS: LORazepam 0.5 MG TABLET PO (11:34)
[2023-03-08 12:08] LABS: Anion Gap 13 (12-20); Blood Urea Nitrogen 48 mg/dL (9-16); Calcium 9.4 mg/dL (8.4-10.2); Carbon Dioxide 26 mmol/L (22-29); Chloride 103 mmol/L (96-108); Creatinine Clr Calc Pharmacy 52.2; Estimated Glomerular Filt Rate 59; Glucose Random 135 mg/dL (60-115); Sodium 138 mmol/L (135-145)
[2023-03-08 16:00] VITALS: BP 152/72; PULSE 66; RESP 20; TEMP 36.2; O2SAT 95
--- NOTE | 2023-03-08 16:07 | MHC.CM.PN ---
pt to be dcd at 6 to [facility] rn to notify family
[2023-03-08 17:00] VITALS: O2SAT 95
== END 2023-03-08 18:40 | disposition skilled nursing facility (03) | DRG 871 ==
LOC: HO.ED 03-01 00:13 → HO.EDOVER 03-01 00:29 → HO.ICU 03-01 09:18 → HO.S3 03-01 14:55
PROVIDERS: Internal Medicine; Internal Medicine Critical Care Medicine; Physician Assistant Medical; Admitting Provider Student in an Organized Health Care Education/Training Program; Emergency Provider Emergency Medicine Emergency Medical Services; PCP Internal Medicine Endocrinology, Diabetes & Metabolism; Visit Provider Internal Medicine
DX: A41.51 Sepsis due to Escherichia coli [E. coli] (principal); I50.21 Acute systolic (congestive) heart failure; J18.9 Pneumonia, unspecified organism; J96.01 Acute respiratory failure with hypoxia; J44.0 Chronic obstructive pulmonary disease with (acute) lower respiratory infection; J44.1 Chronic obstructive pulmonary disease with (acute) exacerbation; E87.21 Acute metabolic acidosis; N17.9 Acute kidney failure, unspecified; J98.11 Atelectasis; M10.9 Gout, unspecified; R91.1 Solitary pulmonary nodule; B96.20 Unspecified Escherichia coli [E. coli] as the cause of diseases classified elsewhere; E87.6 Hypokalemia; D69.59 Other secondary thrombocytopenia; K21.9 Gastro-esophageal reflux disease without esophagitis; Z66 Do not resuscitate; F39 Unspecified mood [affective] disorder; I11.0 Hypertensive heart disease with heart failure; Z20.822 Contact with and (suspected) exposure to COVID-19; Z79.899 Other long term (current) drug therapy
CPT/HCPCS: 36415; 36600; 70450; 71045; 71250; 80048; 80053; 80076; 80202; 81001; 82803; 83605; 83735; 83880; 84100; 84484; 85025; 85027; 85610; 85730; 87040; 87086; 87088; 87186; 87635; 93005; 93306; 94640; 94660; 94799; 97116; 97162; 99285; C1758; J0456; J0692; J0696; J1650; J1940; J2270; J2405; J2920; J3370; Q9957

== ENCOUNTER → 2023-02-28 21:17 | Outpatient (BNV) | payer OTHER, SELFPAY | PROVIDERS: Emergency Provider Internal Medicine; Visit Provider Student in an Organized Health Care Education/Training Program | DX: N39.0 Urinary tract infection, site not specified (principal) | CPT/HCPCS: 99222; 99232; 99233; 99239; 99499 ==

== ENCOUNTER 2023-03-01 00:14 | Outpatient (BNV) | payer OTHER, MEDICARE, SELFPAY | END 2023-03-02 07:00 | PROVIDERS: Admitting Provider Student in an Organized Health Care Education/Training Program; Emergency Provider Emergency Medicine Emergency Medical Services; Visit Provider Internal Medicine | DX: I35.8 Other nonrheumatic aortic valve disorders (principal) | CPT/HCPCS: 93306 ==

== ENCOUNTER 2023-12-21 20:35 | Inpatient (IN) | payer OTHER, MEDICARE, SELFPAY ==
--- NOTE | ~2023-12-21 | CT_ITS ---
EXAMINATION: CT HEAD WITHOUT CONTRAST CLINICAL INFORMATION: Multiple falls. Headache. COMPARISON: 03/01/2023 TECHNIQUE: Contiguous axial imaging was performed from the skull base to vertex without intravenous administration of contrast. This CT examination was performed using dose optimization techniques as appropriate, variously including the following: *Automated exposure control *Adjustment of mA and/or kV according to patient size (this includes techniques or standardized protocols for targeted exams where dose is matched to indication/reason for exam; i.e. extremities or head) *Use of iterative reconstruction technique DLP: 710.41 mGy-cm FINDINGS: There is cerebral volume loss with prominence of the lateral and third ventricles. The cortical sulci are widened appropriately. The fourth ventricle and basal cisterns are normally outlined. There is extensive bilateral confluent periventricular and central white matter diminished attenuation. There is no acute territorial defect, hemorrhage or midline shift. The extra-axial spaces are unremarkable. Calvarium/scalp: Intact. Maxillofacial sinuses and mastoids: Clear as visualized. CT/CT head/brain wo IV con IMPRESSION: 1. No acute intracranial process seen. 2. There is cerebral volume loss with extensive chronic small vessel ischemic changes.
--- NOTE | ~2023-12-21 | CT_ITS ---
EXAMINATION: CT CHEST WITH CONTRAST CLINICAL INFORMATION: Shortness of breath. COMPARISON: 12/31/2022 TECHNIQUE: Multidetector volumetric CT imaging of the chest was obtained after the administration of 85 mL of Omnipaque 350 intravenous contrast without immediate adverse reactions. Axial MIP volume rendering provided. Sagittal and coronal reformatted images were obtained. This CT examination was performed using dose optimization techniques as appropriate, variously including the following: *Automated exposure control *Adjustment of mA and/or kV according to patient size (this includes techniques or standardized protocols for targeted exams where dose is matched to indication/reason for exam; i.e. extremities or head) *Use of iterative reconstruction technique DLP: 452 mGy-cm FINDINGS: PRIMER WATERPROOFING MACHINE ADJUSTER: The cardiac silhouette appears to be enlarged. There is atelectatic change at the lung bases. There is apparent blunting of the costophrenic angles. LUNGS: There is atelectatic change at both lung bases associated with small to moderate bilateral pleural effusions. There is groundglass/minimal patchy infiltrative change right lower lobe. MEDIASTINUM: The heart is enlarged. There is a moderate to large pericardial effusion measuring up to 3 cm on the right. There is a 2.1 cm low-density right thyroid nodule. PLEURA: There are small bilateral pleural effusions. AXILLA: No lymphadenopathy. UPPER ABDOMEN: Unremarkable OSSEOUS STRUCTURES: Unremarkable. CT/CT chest w IV con IMPRESSION: 1. Moderate to large pericardial effusion. 2. Small to moderate bilateral pleural effusions with atelectatic change at both lung bases. 3. Groundglass/minimal patchy infiltrative change right lower lobe. 4. Cardiomegaly. 5. 2.1 cm right thyroid nodule. Fleischner guidelines were followed.
--- NOTE | ~2023-12-21 | XR_ITS ---
EXAMINATION: XR CHEST CLINICAL INFORMATION: CHF status post pericardial window. COMPARISON: Chest radiograph 12/21/2023. TECHNIQUE: Frontal view of the chest was obtained. FINDINGS: Stable enlargement of the cardiomediastinal silhouette. Worsening pulmonary aeration with increased bibasilar airspace opacities and increased small bilateral pleural effusions. No pneumothorax. No acute osseous findings. XR/XR chest 1V IMPRESSION: 1. Worsening pulmonary aeration with increased bibasilar airspace opacities and increased small bilateral pleural effusions. 2. Stable enlargement of the cardiomediastinal silhouette.
--- NOTE | ~2023-12-21 | XR_ITS ---
EXAMINATION: CHEST 2 VIEWS CLINICAL INFORMATION: short of breath. COMPARISON: 03/02/2023. TECHNIQUE: AP frontal and lateral views of the chest obtained FINDINGS: Lungs are mildly hypoexpanded with linear markings at the bases more likely due to atelectasis. No overt edema or pneumothorax patient is rotated. The mediastinum is prominent with a likely tortuous aorta as suggested on the 03/02/2023 CT scan. No acute bony abnormality XR/XR chest 2V IMPRESSION: Hypoexpanded with linear basilar markings more likely due to atelectasis. Tortuous aorta
--- NOTE | ~2023-12-21 | XR_ITS ---
EXAMINATION: XR CHEST CLINICAL INFORMATION: Follow-up pleural or pericardial effusion COMPARISON: 12/22/2023 TECHNIQUE: 2 views of the chest were obtained. FINDINGS: There is low lung volume bilaterally with bilateral pleural effusion. Cardiomediastinal silhouette is prominent most likely due to pericardial effusion aorta is unfolded. XR/XR chest 2V IMPRESSION: Pleural effusion and possibly pericardial effusion. Correlate with echocardiogram
--- NOTE | ~2023-12-21 | US_ITS ---
EXAMINATION: US THYROID CLINICAL INFORMATION: Thyroid nodule. COMPARISON: None available. TECHNIQUE: Linear transducer grayscale and color Doppler examination with attention to the region of the thyroid. FINDINGS: SIZE: Measurements of the thyroid lobes and nodules are given in sagittal, anteroposterior and transverse dimensions respectively. Right Thyroid Lobe: 5.7 x 2.9 x 2.7 cm, volume 20.4 mL. Parenchyma: The gland echotexture is homogeneous. Thyroid vascularity is normal. Left Thyroid Lobe: 4.1 x 1.6 x 1.6 cm, volume 5.6 mL. Parenchyma: The gland echotexture is homogeneous. Thyroid vascularity is normal. Isthmus: 0.8 cm in maximum AP dimension. Estimated total number of nodules greater than or equal to 1 cm: 1. [employer] Aide nodules are described as follows: 1. Location: Interpolar to lower pole right lobe. Size: 3.1 x 2.1 x 2.4 cm, volume 8.1 mL. Nodule characteristics: Composition: Solid/almost completely solid (2). Echogenicity: Isoechoic (1). Shape: Not taller than wide (0). Margins: Lobulated (2). Echogenic Foci: Punctate echogenic foci (3). ACR TI-RADS total points: 8 ACR TI-RADS category: 5 NODES: No lymphadenopathy is seen in the tissue surrounding the thyroid gland. US/US thyroid IMPRESSION: 1. A 3.1 cm mid to lower right thyroid lobe TR 5 nodule meets ACR biopsy criteria and is amenable to ultrasound-guided biopsy, if clinically indicated and not already performed. 2. 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 ACR TI-RADS RECOMMENDATION REFERENCE: Ultrasound-guided fine-needle aspiration, followup ultrasound, no further follow up. * TR1 (0 point) and TR2 (2 points): No FNA or follow up. * TR3 (3 points): FNA if more than or equal to 2.5 cm in maximum dimension, followup ultrasound in 1, 3 and 5 years if 1.5 to 2.4 cm in maximum dimension. * TR4 (4-6 points): FNA if more than or equal to 1.5 cm in maximum dimension, followup ultrasound in 1, 2, 3 and 5 years if 1 to 1.4 cm in maximum dimension. * TR5 (more than or equal to 7 points): FNA if more than or equal to 1 cm in maximum dimension, followup ultrasound every year for 5 years if 0.5 to 0.9 cm in maximum dimension. * TR3, TR4 or TR5 nodules that are below the size threshold for followup receive no follow up.
--- NOTE | ~2023-12-21 | CT_ITS ---
EXAMINATION: CT HEAD WITHOUT CONTRAST CLINICAL INFORMATION: 83-year-old male with confusion COMPARISON: 12/21/2019 TECHNIQUE: Contiguous axial imaging was performed from the skull base to vertex without intravenous administration of contrast. This CT examination was performed using dose optimization techniques as appropriate, variously including the following: *Automated exposure control *Adjustment of mA and/or kV according to patient size (this includes techniques or standardized protocols for targeted exams where dose is matched to indication/reason for exam; i.e. extremities or head) *Use of iterative reconstruction technique DLP: 829 mGy-cm FINDINGS: There is no acute intracranial bleeding, ischemic changes, masses, mass effect ventricles, sulci and cisterns are prominent due to global atrophy and there are patchy periventricular white matter changes as a sequela of microangiopathy. Osseous structures are unremarkable. Visualized paranasal sinuses and mastoids are well aerated. CT/CT head/brain wo IV con IMPRESSION: No acute intracranial abnormalities. Sequela of microangiopathy and global volume loss
[2023-12-21 20:38] VITALS: BP 122/78; PULSE 90; RESP 22; TEMP 36.6; O2SAT 94; BMI 30.4
--- NOTE | 2023-12-21 20:38 | ED.GENADULT ---
HPI - General Adult General Chief complaint: General Medical Stated complaint: sob,unable to stand/walk ,poor appetite Time Seen by Provider: 12/21/23 22:27 Source: patient and family Mode of arrival: ambulatory Limitations: no limitations History of Present Illness ED Provider: Dr. Kelsi Cooney HPI narrative: Patient comes to the emergency room accompanied by his daughter. Patient states that for the last few days to weeks, patient has gradually been getting more weak, has had multiple falls, feeling short of breath, has noticed that his lower extremities have been getting more swollen. Patient lives by himself. Patient's daughter picks him up every day for dinner. Today, the patient told his daughter that he did not want to come for dinner, the daughter went to check on him and noticed that the patient was significantly weak. Usually patient is able to get up and walk helping himself with a casiano. However, patient was barely able to get up today with the assistance. According to the family, the patient has been eating less. In February of 2023, patient was here with similar symptoms, patient was diagnosed with UTI and pneumonia. Also, a CT scan back then showed a 9 mm pulmonary nodule in the right middle lobe, a follow-up CT scan has not been done because the patient refuses to go to see his doctor. Related Data Home Medications ?Medication ?Instructions ?Recorded ?Confirmed allopurinol 300 mg tablet 300 mg PO DAILY 03/01/23 03/01/23 omeprazole 20 mg capsule,delayed 20 mg PO BID 03/01/23 03/01/23 release Previous Rx's ?Medication ?Instructions ?Recorded amlodipine 10 mg tablet 10 mg PO DAILY #30 tabs 03/08/23 amlodipine 5 mg tablet 5 mg PO BEDTIME #30 tabs 03/08/23 cefuroxime axetil 500 mg tablet 500 mg PO Q12H #9 tabs 03/08/23 furosemide 20 mg tablet (Lasix) 20 mg PO DAILY #30 tabs 03/08/23 lisinopril 20 mg tablet 20 mg PO DAILY #30 tabs 03/08/23 lorazepam 0.5 mg tablet 0.5 mg PO TID PRN 03/08/23 Anxiety/Restlessness #30 tabs prednisone 10 mg tablet 10 mg PO DAILY #3 tabs 03/08/23 Allergies Allergy/AdvReac Type Severity Reaction Status Date / Time No Known Allergies Allergy Verified 12/21/23 20:42 Review of Systems Review of Systems: Constitutional : No Weight loss, No Fever, No Chills, No Night Sweats, complaining of generalized weakness ENT/Mouth : No Hearing loss, No Ear Pain, No Nasal Congestion, No Sinus Pain, No Hoarseness, No sore throat, No Rhinorrhea, No Swallowing Difficulty Eyes: No Eye Pain, No Swelling, No Redness, No Foreign Body, No Discharge, No Vision Changes Cardiovascular : No Chest Pain, No SOB, complaining of acute on chronic shortness of breath, worse with exertion Respiratory : No Cough, No Sputum, No Wheezing, No Smoke Exposure, No Dyspnea Gastrointestinal : No Nausea, No Vomiting, No Diarrhea, No Constipation, No abdominal Pain, No Hematochezia, No Melena Genitourinary : no irregular bleeding, No Dysuria, No Urinary Frequency, No Hematuria, No Urinary Incontinence, No Urgency, No Flank Pain, No Urinary Flow Changes, No Hesitancy Musculoskeletal : No joint pain, No Myalgias, No Joint Swelling Skin : No Skin Lesions, No rash Neuro : No Weakness, No Numbness, No Paresthesias, No Loss of Consciousness, No Dizziness, No Headache Psych : No Anxiety/Panic, No Depression, No SI/HI/AH/VH, No Social Issues, Heme/Lymph: No Bruising, No Bleeding,No Lymphadenopathy Endocrine : No Polyuria, No Polydipsia, No Temperature Intolerance [facility] Past Medical History Medical History (Updated 12/22/23 @ 03:53 by Kelsi Cooney MD) COPD (chronic obstructive pulmonary disease) CHF (congestive heart failure) Graves disease Hypertension Vertigo Dizziness Social History Social History Household Members: None Housing: House Alcohol intake: former Patient Tobacco Use Status: Never used Tobacco Smoked in Last 30 Days: No Use of substances other than those prescribed or required for medical reasons: No Advance Directives: Yes Advance Directives on File: Yes Advance Directives Date on File: 03/08/23 service: Yes Physical Exam ED Vital Signs: Vital Signs - 24 hr 12/21/23 20:38 12/21/23 22:00 12/21/23 23:35 Temperature 97.8 F 98.2 F Pulse Rate 90 80 Respiratory Rate 22 H 24 H Blood Pressure 122/78 130/94 H Pulse Oximetry 94 92 94 Oxygen Delivery Method Room Air Room Air 12/22/23 01:54 Temperature 98.0 F Pulse Rate 77 Respiratory Rate 25 H Blood Pressure 163/82 H Pulse Oximetry 94 Oxygen Delivery Method Room Air BMI result Body Mass Index 30.4 Const Other: Appearance: Alert. Oriented X3. No acute distress. Weak, has trouble standing up Eyes: Pupils equal, round and reactive to light. ENT: Pharynx normal. Neck: Normal inspection. Neck supple. No lymph nodes noted. No crepitus CVS: Normal heart rate and rhythm. Pulses normal. Normal S1 and S2 Respiratory: No respiratory distress. Mild bilateral crackles, no rales, no wheezing Abdomen: Soft and nontender. No rigidity. No distention. Skin: Skin warm and dry. Normal skin color. Normal skin turgor. Extremities: +2 pitting edema bilaterally No Lacerations. No Rash Neuro: Oriented X 3. No motor deficit. No sensory deficit. Moving all extremities. No slurred speech. CN 2 through 12 grossly intact Psych: calm, cooperative, normal affect Course Course Course Narrative: This is a Rapid Medical Examination (RME) performed by Magdalene Chan PA-C in triage. Full HPI, ROS, assessment and treatment plan per primary provider in the Main ED. 83 yo male hx HTN, CHF, COPD here w/ sob, dizziness, decreased appetite x3 days. Plan: labs, ekg, cxr, viral serology Medications Administered Discontinued Medications Generic Name Dose Route Start Last Admin Trade Name Freq PRN Reason Stop Dose Admin Iohexol 85 ml 12/21/23 23:34 12/21/23 23:35 Iohexol 350 Mg/Ml 100 Ml Infus..Btl IV 12/21/23 23:35 85 ml ONCE ONE Administration Medical Decision Making Medical Decision Making MDM Narrative: -my interpretation of labs, white blood cell count 19.6, hemoglobin 12.8, hematocrit 36.6, platelets 283, INR 1.3, chemistry at baseline, BNP 949, troponin 28.2, lipase less than 4 -patient's CT scan of the head pending, patient has had multiple falls, patient has multiple bruising a different stages of healing, it is likely that he has not been telling his family his falling. -my interpretation of head CT, no intracranial abnormality. -my interpretation of chest CT, pericardial effusion. -at this time, 03:23, patient's CT scan of the chest became available. Patient may have an infiltrate, patient being covered with azithromycin and ceftriaxone. -Sepsis is not suspected-patient's lactic acid pending, no fever -Dr. Norman from thoracic surgery has been contacted. Recommendations: Admission by Medicine, needs echocardiogram, no need for emergent thoracenthesis/pericardial window at this time -urinalysis is still pending. Patient has already been covered with ceftriaxone even if there is a UTI - Differential Diagnosis Differential Diagnoses: The differential diagnosis associated with the presentation includes (CHF, lung cancer, UTI, pericardial effusion) Admission/Observation Consideration of admission/observation: Escalation of care including admission/observation considered Consult Healthcare Provider Management of the patient was discussed with: Hospitalist and Portrait Painter Lab Data MDM Lab Attestation statement: I reviewed the patient's lab results. 12/21/23 21:29 12/21/23 21:29 Labs: Lab Results 12/21/23 Range/Units 21:29 WBC 19.6 H (4.8-10.8) X10*3/uL RBC 4.03 L (4.60-5.80) X10*6/uL Hgb 12.8 L (14.0-18.0) g/dl Hct 36.6 L (42.0-52.0) % MCV 90.8 (80.0-98.0) fL MCH 31.8 (27.0-33.0) pg MCHC 35.0 (31.0-36.0) g/dl RDW 13.9 (11.0-16.0) % Plt Count 283 D (160-400) X10*3/uL MPV 11.2 (9.4-12.4) fL Immature Gran % (Auto) 0.6 H (0.0-0.4) % Neut % (Auto) 88.3 H (45-73) % Lymph % (Auto) 1.6 L (20-40) % [place] % (Auto) 9.3 (2-11) % Eos % (Auto) 0.0 (0-4) % Baso % (Auto) 0.2 (0-2) % Lymph # (Auto) 0.3 L (1.2-4.9) X10*3/uL [place] # (Auto) 1.8 H (0.1-1.2) X10*3/uL Eos # (Auto) 0.0 (0.0-0.4) X10*3/uL Baso # (Auto) 0.0 (0.0-0.2) X10*3/uL Abs Immat Gran (auto) 0.11 H (0.00-0.03) X10*3/uL Absolute Neuts (auto) 17.3 H (2.0-8.3) x10*3/uL Absolute Nucleated RBC 0.000 (0.0-0.012) X10*3/uL Nucleated RBC % (auto) 0.0 (0.0-0.2) /100WBC Smear Tech's Comments VERIFIED PT 15.3 H (11.1-13.3) SEC INR 1.3 H (0.9-1.1) Sodium 136 (135-145) mmol/L Potassium 3.6 (3.3-5.1) mmol/L Chloride 102 (96-108) mmol/L Carbon Dioxide 22 (22-29) mmol/L Anion Gap 16 (12-20) BUN 26 H (9-16) mg/dL Creatinine 1.02 (0.5-1.4) mg/dL Estim Creat Clear Calc 56.0 Estimated GFR > 60 Random Glucose 148 H (60-115) mg/dL Calcium 9.1 (8.4-10.2) mg/dL Magnesium 2.1 (1.6-2.6) mg/dL Total Bilirubin 1.2 H (0.0-1.0) mg/dL AST 16 (5-37) U/L ALT 20 (0-40) U/L Alkaline Phosphatase 91 (39-117) U/L Troponin I High Sens 28.2 (<3.5-35.0) ng/L B-Natriuretic Peptide 949 H (<100) pg/mL Total Protein 6.0 L (6.5-8.0) g/dL Albumin 3.9 (3.5-5.0) g/dL Lipase < 4 L (8-78) U/L Influenza Type A (PCR) NEGATIVE (Negative) Influenza Type B (PCR) NEGATIVE (Negative) RSV RNA Qual (PCR) NEGATIVE (Negative) SARS-CoV-2 RNA (RT-PCR) NEGATIVE (Negative) Independent Interpretation I performed an independent interpretation of an: Plain X-Ray and CT Scan Radiology Impression Discussion of test interpretation with radiology: I have reviewed the radiologist's reading. Radiologist Impression: Lungs are mildly hypoexpanded with linear markings at the bases more likely due to atelectasis. No overt edema or pneumothorax patient is rotated. The mediastinum is prominent with a likely tortuous aorta as suggested on the 03/02/2023 CT scan. No acute bony abnormality XR/XR chest 2V IMPRESSION: Hypoexpanded with linear basilar markings more likely due to atelectasis. Tortuous aorta FINDINGS: There is cerebral volume loss with prominence of the lateral and third ventricles. The cortical sulci are widened appropriately. The fourth ventricle and basal cisterns are normally outlined. There is extensive bilateral confluent periventricular and central white matter diminished attenuation. There is no acute territorial defect, hemorrhage or midline shift. The extra-axial spaces are unremarkable. Calvarium/scalp: Intact. Maxillofacial sinuses and mastoids: Clear as visualized. CT/CT head/brain wo IV con IMPRESSION: 1. No acute intracranial process seen. 2. There is cerebral volume loss with extensive chronic small vessel ischemic changes. FINDINGS: CLASS B DRIVER: The cardiac silhouette appears to be enlarged. There is atelectatic change at the lung bases. There is apparent blunting of the costophrenic angles. LUNGS: There is atelectatic change at both lung bases associated with small to moderate bilateral pleural effusions. There is groundglass/minimal patchy infiltrative change right lower lobe. MEDIASTINUM: The heart is enlarged. There is a moderate to large pericardial effusion measuring up to 3 cm on the right. There is a 2.1 cm low-density right thyroid nodule. PLEURA: There are small bilateral pleural effusions. AXILLA: No lymphadenopathy. UPPER ABDOMEN: Unremarkable OSSEOUS STRUCTURES: Unremarkable. CT/CT chest w IV con IMPRESSION: 1. Moderate to large pericardial effusion. 2. Small to moderate bilateral pleural effusions with atelectatic change at both lung bases. 3. Groundglass/minimal patchy infiltrative change right lower lobe. 4. Cardiomegaly. 5. 2.1 cm right thyroid nodule. Independent Historian Clinical information obtained from an independent historian. History obtained from or confirmed by: Other (Patient's daughter) Critical Care Time Critical Care Time Critical Care Time: Yes Total Critical Care Time: 75 Attestation: I have personally provided critical care time. Time includes review of lab data, radiology results, discussion with consultants, and monitoring for potential decompensation. Intervention performed as documented. Discharge Plan Discharge Clinical Impression: Pericardial effusion, Bilateral pleural effusion, Pneumonia Patient Disposition: Admitted As Inpatient Prescriptions: No Action omeprazole 20 mg capsule,delayed release(DR/EC) 20 mg PO BID allopurinol 300 mg tablet 300 mg PO DAILY cefuroxime axetil 500 mg Tablet 500 mg PO Q12H Qty: 9 0RF prednisone 10 mg tablet 10 mg PO DAILY Qty: 3 0RF furosemide [Lasix] 20 mg tablet 20 mg PO DAILY Qty: 30 0RF amlodipine 10 mg Tablet 10 mg PO DAILY Qty: 30 0RF Protocol: Hold for SBP< HOLD for SBP < : 90 Rx Instructions: in the morning amlodipine 5 mg Tablet 5 mg PO BEDTIME Qty: 30 0RF Protocol: Hold for SBP< HOLD for SBP < : 90 lorazepam 0.5 mg Tablet 0.5 mg PO TID PRN (Reason: Anxiety/Restlessness) Qty: 30 0RF lisinopril 20 mg tablet 20 mg PO DAILY Qty: 30 0RF Print Language: Mohawk
--- NOTE | 2023-12-21 20:42 | ECG_ITS ---
Test Reason : sob Blood Pressure : / mmHG Vent. Rate : 091 BPM Atrial Rate : 091 BPM P-R Int : 156 ms QRS Dur : 092 ms QT Int : 400 ms P-R-T Axes : -29 -08 148 degrees QTc Int : 492 ms Sinus rhythm with Premature atrial complexes with Aberrant conduction Left ventricular hypertrophy with repolarization abnormality ( R in aVL ) Abnormal ECG When compared with ECG of 01-MAR-2023 08:50, ST no longer depressed in Inferior leads ST no longer depressed in Anterior leads QT has lengthened Referred By: Thuy Chan Electronically Signed By:DOMINIC GONZALES MD
[2023-12-21 21:37] LABS: Basophils Percent Auto 0.2 % (0-2); Hematocrit 36.6 % (42.0-52.0); Hemoglobin 12.8 g/dl (14.0-18.0); Imm Gran Abs Auto 0.11 X10*3/uL (0.00-0.03); Imm Gran Pct Auto 0.6 % (0.0-0.4); Lymphocytes Absolute Auto 0.3 X10*3/uL (1.2-4.9); Lymphocytes Percent Auto 1.6 % (20-40); MANUAL DIFF FLAG SCAN; Mean Corpuscular Hemoglobin 31.8 pg (27.0-33.0); Mean Corpuscular Volume 90.8 fL (80.0-98.0); Mean Platelet Volume 11.2 fL (9.4-12.4); Monocytes Absolute Auto 1.8 X10*3/uL (0.1-1.2); Monocytes Percent Auto 9.3 % (2-11); Neutrophils Absolute Auto 17.3 x10*3/uL (2.0-8.3); Neutrophils Percent Auto 88.3 % (45-73); Platelet Count 283 X10*3/uL (160-400); Red Blood Count 4.03 X10*6/uL (4.60-5.80); Red Cell Distribution Width 13.9 % (11.0-16.0); SCAN SMEAR FLAG 1; White Blood Count 19.6 X10*3/uL (4.8-10.8)
[2023-12-21 21:44] LABS: INTERNATIONAL NORM RATIO 1.3 (0.9-1.1); Prothrombin Time 15.3 SEC (11.1-13.3)
[2023-12-21 21:54] LABS: Alanine Aminotransferase 20 U/L (0-40); Albumin Level 3.9 g/dL (3.5-5.0); Alkaline Phosphatase 91 U/L (39-117); Anion Gap 16 (12-20); Aspartate Amino Transferase 16 U/L (5-37); Bilirubin Total 1.2 mg/dL (0.0-1.0); Blood Urea Nitrogen 26 mg/dL (9-16); Calcium 9.1 mg/dL (8.4-10.2); Carbon Dioxide 22 mmol/L (22-29); Chloride 102 mmol/L (96-108); Estimated Glomerular Filt Rate > 60; Glucose Random 148 mg/dL (60-115); Lipase < 4 U/L (8-78); Magnesium 2.1 mg/dL (1.6-2.6); Potassium 3.6 mmol/L (3.3-5.1); Sodium 136 mmol/L (135-145)
[2023-12-21 21:57] LABS: B Type Natriuretic Peptide 949 pg/mL (<100)
[2023-12-21 22:00] VITALS: BP 130/94; PULSE 80; RESP 24; TEMP 36.8; O2SAT 92
[2023-12-21 22:00] LABS: Troponin-I High Sensitivity 28.2 ng/L (<3.5-35.0)
[2023-12-21 22:15] LABS: Influenza A PCR NEGATIVE (Negative); Influenza B PCR NEGATIVE (Negative); Resp Syncy Virus RNA Qual PCR NEGATIVE (Negative); SARS COV2 PCR INHOUSE NEGATIVE (Negative)
[2023-12-21 22:55] LABS: SLIDE REVIEW VERIFIED
[2023-12-21 23:35] VITALS: O2SAT 94
[2023-12-21] MEDS: iohexoL 350 MG/ML 100 ML INFUS..BTL 85 ML IV (23:35)
[2023-12-22] VITALS (29 sets, daily range): BP systolic 112–183; BP diastolic 67–104; PULSE 75–114; RESP 16–32; TEMP 36.7–38.1; O2SAT 91–96; BMI 30.8
--- NOTE | 2023-12-22 | ECG_ITS ---
Test Reason : RHYTHM CHANGE Blood Pressure : / mmHG Vent. Rate : 088 BPM Atrial Rate : 300 BPM P-R Int : 000 ms QRS Dur : 090 ms QT Int : 424 ms P-R-T Axes : 000 -04 189 degrees QTc Int : 513 ms Atrial fibrillation Left ventricular hypertrophy with repolarization abnormality ( R in aVL ) Prolonged QT Abnormal ECG When compared with ECG of 21-DEC-2023 21:16, Atrial fibrillation has replaced Sinus rhythm Referred By: Madeleine Hector Electronically Signed By:DOMINIC GONZALES MD
--- NOTE | 2023-12-22 00:43 | MHC.EDTECH ---
This tech placed [place] cath and gave pt water, call marion within reach.
--- NOTE | 2023-12-22 02:27 | PC.NURSE ---
UA unable to be obtained yet, [place] catheter that was in place was found to be off the penis and laying in the bed. This RN provided tanya care for the patient and provided him with a urinal to obtain the sample. MD dick
[2023-12-22 04:08] LABS: Appearance Urine Clear; Color Urine Dark Yellow; Glucose Urine UA Negative (Negative); Leukocyte Esterase Urine Trace (Negative); Nitrite Urine Negative (Negative); PH 5.5 (5.0-9.0); Specific Gravity - Urine >= 1.030 (1.005-1.025); UMIC TRIGGER UACC YES; Urine Blood Large (3+) (Negative); Urine Ketones Negative (Negative); Urine Protein 30 (1+) mg/dL (Neg-Trace)
[2023-12-22 04:16] LABS: Bacteria Urine None Seen (None Seen); Hyaline Casts Urine 0-2 /LPF (0-2); RBC Urine >20 /HPF (0-2); Squamous Epithelial Cell Urine 0-2 /HPF (0-2); WBC Urine 0-5 /HPF (0-5)
[2023-12-22 04:26] LABS: Lactic Acid 1.1 mmol/L (0.5-2.0)
--- NOTE | 2023-12-22 05:21 | P.PNCC_ITS ---
Critical Care Event Note Summary Date of Service: 12/22/23 Code activated: No Narrative: This case had a high probability of a clinically significant, sudden, or life threatening deterioration of this patient's condition which required my full and direct attention, intervention and personal management. Critical Care Time (minutes): 60 Comment: Reason for consult: Pericardial Efussion HPI: Patient who is an 83-year-old gentleman with underlying history of hypertension, gout, anxiety, GERD, presented to us via request from the Internal Medicine Services for evaluation due to pericardial effusion and the possibility of ICU admission. According to the patient, he has been short of breath for the past 6 months and he feels no different than what he has in the past with the exception of lightheadedness without true dizziness as he does not feel like the room was spinning around him he has no problems walking.? In the last 4 days, he noted that his legs were swollen for which he saw a doctor and he was given a water pill to take daily and ever since his leg swelling has gotten better.? He admits some intermittent coughing without any sputum production, no fever or chills, denies chest pain, he does not feel more short of breath unusual, has not had any recent traveling, has never had a blood clot in the legs or lungs and has never been told that he has fluid in his lungs either. He denies feeling sick recently including a viral-like symptoms and again mentioned that the only reason why he is in the hospitalist because he has been feeling ?dizzy?.? He denies any arm or leg weakness, there is no history of hypercoagulable state, no history of cancer.? At this point of further complaints. Review of systems: As above, otherwise the patient denies any prior history of strokes, cold intolerance, migraine headaches, head trauma, no eyes, ears or nose problems, no problems swallowing or with phonation, denies any history of chest pain, palpitations, coronary disease, admits to intermittent cough without sputum production, no history of pneumonia, bronchitis, COPD or emphysema, abdominal pain, nausea, vomiting, diarrhea, abdominal surgeries, melena, hematochezia, hematemesis, hematuria, kidney stones, liver problems, immunocompromise state of any kind, no history of DVT or PE, leg edema, fractures or extremity surgeries all other review of systems were reviewed and they were all negative. EXAM: 112/88, 79, 22, 93% room air, 98.4. The patient is alert and oriented x3, does not appear to be in distress although he is breathing 20-22 breaths per minute with accessory muscle usage of the belly which according to him is not different than what it has been in the past 6 months. Has 2+ pitting edema of the bilateral lower extremities up to mid tibia, no asymmetry.? Otherwise skin is intact. Heart is regular rate and rhythm no murmurs, there is a rub at the left lower sternal border and an S3 gallop noted. There is bilateral fine crackles at the bases right more than left with minimal rhonchi at the right lateral aspect. Abdomen is protuberant, positive bowel sounds.? Soft, nontender. Patient is moving all 4 extremities upon request under major joints, no crepitus, edema as above. Neuro logically intact without any apparent deficits and otherwise alert and oriented as above. 2+ pulses bilaterally upper and lower extremities. CHEST CT WITH CONTRAST IMPRESSION: 1. Moderate to large pericardial effusion. 2. Small to moderate bilateral pleural effusions with atelectatic change at both lung bases. 3. Groundglass/minimal patchy infiltrative change right lower lobe. 4. Cardiomegaly. 5. 2.1 cm right thyroid nodule. HEAD CT IMPRESSION: 1. No acute intracranial process seen. 2. There is cerebral volume loss with extensive chronic small vessel ischemic changes. EKG: ?To my view this sinus rhythm rate of 90 beats per minute.? There is no ST elevations, no ST depressions.? QT 400 mask. ?Overall this appears better than the study in February 2023 at which point there were some ST depressions in the anterior inferior leads. Laboratories White blood cells 19.6, hemoglobin 12.8, hematocrit 36.6, platelets 283.? PT 15.3, INR 1.3.? Sodium 136, potassium 3.6, chloride 102, carbon dioxide 22, anion gap 16, BUN 26, creatinine 1.02.? BNP 949, troponin 28.2. ECHOCARDIOGRAPHY for hemodynamic monitoring done at bedside by me: On parasternal and apical views, there is no doubt that there is a moderate size pericardial effusion at 3.5 cm in thickness at the most prominent spot. To my view there is no right diastolic ventricular collapse. No eminent systolic right atrial collapse. Left ventricular hypertrophy noted. There is hypokinesis of the right ventricle with decreased anatomical size likely due to compression caused by the pericardial effusion. Rough estimate of ejection fraction is 30% MV appears normal with 1+ MR by color tara. TV appears normal with 1+ TR by color tara IVC is 2.1 cm sized and minimally contractile with inspiration. However I am no t sure whether or not there is true pulsus paradoxus. Assessment: Moderate pericardial effusion Acute on chronic shortness of breath (ongoing for 6 months) Acute systolic and Diastolic heart failure Reactive versus infective leukocytosis Right lung ground-glass opacity questionable pneumonia Incidental 2.1 cm right thyroid nodule Plan of care: At this point, I believe the patient is stable enough to go to telemetry. Certainly the patient needs thoracic surgery evaluation for a pericardial window and diagnostic/therapeutic drainage of his pericardial effusion. Patient will need further evaluation with diagnostic studies of his pericardial fluid including viral, malignant, autoimmune and hormonal (underactive thyroid) workup Certainly any of the above can change including symptomatology, vital signs and further development of the pericardial effusion into a pericardial tamponade, we kindly encourage you to monitor him closely and let us know, the patient should go to telemetry. Case discussed with Dr. Cardoso as well as Dr. Jay Critical care time used for critical evaluation of this patient, diagnosis, treatment and coordination of care, review her records and documentation TOTAL CRITICAL 75 CARE TIME MIN . discussion and coordination with consultants, completely separate from any procedures performed. . Patient's care was discussed in detail with Dr. Jay. He is aware of all the above as well as the plan of care for this patient.
--- NOTE | 2023-12-22 05:25 | P.HPHOSP_ITS ---
History of Present Illness Date of Service: 12/22/23 Chief Complaint: dizzy 83M PMH remote history of etoh dependence, hfref, mild cognitive impairment, mood disorder, bph, gout, presented with about 1 month dizziness. on 12/05/23 was noted to be hypotensive at home 84/54, home lisinopril was stopped, but continued to fell off balance, difficulty walking, saw pcp 12/12/23, recommended mri, but patient refused. also notes more fatigue, napping longer and more frequently. denies sob but is noted to be using more accessory muscles and everyone asks him if he feels sob. due to non resolving issues and worsening edema and falls and weakness came to ED. in ED ct chest showed 3cm mod to large pericardial effusion. Review of Systems 2 Review of Systems: Yes all other systems are reviewed and are negative [facility], [facility] Medical History COPD (chronic obstructive pulmonary disease) CHF (congestive heart failure) Graves disease Hypertension Vertigo Dizziness Social History Household Members: None Housing: House Alcohol intake: former Patient Tobacco Use Status: Never used Tobacco Smoked in Last 30 Days: No Use of substances other than those prescribed or required for medical reasons: No Advance Directives: Yes Advance Directives on File: Yes Advance Directives Date on File: 03/08/23 service: Yes Meds Allergies Allergy/AdvReac Type Severity Reaction Status Date / Time No Known Allergies Allergy Verified 12/21/23 20:42 Active Medications: Current Medications Acetaminophen (Acetaminophen 325 Mg Tablet) 650 mg PO Q6H PRN PRN Reason: Pain, Mild (Pain Scale 1-3), fever or headache Allopurinol (Allopurinol 300 Mg Tablet) 300 mg PO DAILY KARLENE Calcium Carbonate (Calcium Carbonate 750 Mg Tab.Chew) 750 mg PO Q4H PRN PRN Reason: Heartburn Furosemide (Furosemide 20 Mg Tablet) 20 mg PO DAILY KARLENE; Protocol Lisinopril (Lisinopril 40 Mg Tablet) 40 mg PO DAILY KARLENE; Protocol Magnesium Hydroxide (Milk Of Magnesia 30 Ml Oral.Susp) 30 ml PO DAILY PRN PRN Reason: Constipation Melatonin (Melatonin 3 Mg Tablet) 6 mg PO BEDTIME PRN PRN Reason: Insomnia Sodium Chloride (0.9 % Sodium Chloride Flush 3 Ml Syringe) 3 ml IVFLUSH QSHIFT [facility] Home Medications ?Medication ?Instructions ?Recorded ?Confirmed ?Last Taken ?Type allopurinol 300 mg tablet 300 mg PO DAILY 03/01/23 03/01/23 Unknown History omeprazole 20 mg capsule,delayed 20 mg PO BID 03/01/23 03/01/23 Unknown History release Physical Exam 2 Vital Signs and Narrative: Vital Signs: Last Vital Signs Temp 98.4 F 12/22/23 04:40 Pulse 79 12/22/23 04:40 Resp 22 H 12/22/23 04:40 BP 112/88 12/22/23 04:40 Pulse Ox 93 12/22/23 04:40 O2 Del Method Room Air 12/22/23 04:40 BMI result Body Mass Index 30.4 General: AO X 3, no acute distress Resp: CTA bilateral, accessory muscles used CVS: S1,S2,RRR, jvd, edema GI: soft, non tender, non distended Neuro: motor grossly intact, alert Results Labs 12/21/23 21:29 12/21/23 21:29 Labs: Laboratory Results - last 24 hr 12/21/23 12/22/23 12/22/23 21:29 03:56 04:03 MCV 90.8 MCH 31.8 MCHC 35.0 RDW 13.9 Plt Count 283 D MPV 11.2 Immature Gran % (Auto) 0.6 H Neut % (Auto) 88.3 H Lymph % (Auto) 1.6 L [place] % (Auto) 9.3 Eos % (Auto) 0.0 Baso % (Auto) 0.2 Lymph # (Auto) 0.3 L [place] # (Auto) 1.8 H Eos # (Auto) 0.0 Baso # (Auto) 0.0 Abs Immat Gran (auto) 0.11 H Absolute Neuts (auto) 17.3 H Absolute Nucleated RBC 0.000 Nucleated RBC % (auto) 0.0 Smear Tech's Comments VERIFIED PT 15.3 H INR 1.3 H Anion Gap 16 Estim Creat Clear Calc 56.0 Estimated GFR > 60 Random Glucose 148 H Lactic Acid 1.1 Calcium 9.1 Magnesium 2.1 Total Bilirubin 1.2 H AST 16 ALT 20 Alkaline Phosphatase 91 Troponin I High Sens 28.2 B-Natriuretic Peptide 949 H Total Protein 6.0 L Albumin 3.9 Lipase < 4 L Urine Color Dark Yellow Urine Appearance Clear Urine pH 5.5 Ur Specific [place] >= 1.030 H Urine Protein 30 (1+) H Urine Glucose (UA) Negative Urine Ketones Negative Urine Blood Large (3+) H Urine Nitrite Negative Ur Leukocyte Esterase Trace H Urine RBC >20 H Urine WBC 0-5 Ur Squamous Epith Cells 0-2 Urine Bacteria None Seen Hyaline Casts 0-2 Influenza Type A (PCR) NEGATIVE Influenza Type B (PCR) NEGATIVE RSV RNA Qual (PCR) NEGATIVE SARS-CoV-2 RNA (RT-PCR) NEGATIVE Imaging Radiologist's Impressions: Impressions Chest X-Ray 12/21/23 21:09 IMPRESSION: Hypoexpanded with linear basilar markings more likely due to atelectasis. Tortuous aorta Chest CT 12/21/23 23:35 IMPRESSION: 1. Moderate to large pericardial effusion. 2. Small to moderate bilateral pleural effusions with atelectatic change at both lung bases. 3. Groundglass/minimal patchy infiltrative change right lower lobe. 4. Cardiomegaly. 5. 2.1 cm right thyroid nodule. Fleischner guidelines were followed. Head CT 12/21/23 23:35 IMPRESSION: 1. No acute intracranial process seen. 2. There is cerebral volume loss with extensive chronic small vessel ischemic changes. Assessment and Plan (1) Pericardial effusion: Status: Acute Plan 83M PMH remote history of etoh dependence, hfref, mild cognitive impairment, mood disorder, bph, gout, presented with about 1 month dizziness dizziness due to acute/subacute pericardial effusion icu appreciated, no clear tamponade on bedside echo thoracic eval, monitor on tele, cardio eval npo for possible pericardiocentesis cant rule out posterior cva, patient not willing to do mri at this time hfref acute on chronic continue lasix maintenance, will avoid overdiuresis in setting of pericardial effusion gout allopurinol htn will continue to hold lisinopril mood disorder zoloft dvt prophylaxis - mechanical in case pericariocentesis planned full code patient with pericardial effusion symptomatic, may need window, therefore expected to require atleast 2 midnights Quality Stroke Does the patient have a stroke diagnosis?: No VTE Prior VTE?: No VTE Risk Level:: Medical - moderate - high VTE Device Contraindication: N/A - Device Ordered VTE Drug Contraindication: Treatment Not Tolerated
[2023-12-22 06:13] LABS: TSH reflex Free T4 1.31 uIU/mL (0.32-4.0)
--- NOTE | 2023-12-22 07:00 | CA_ITS ---
Transthoracic Echocardiogram Patient (Last, First, Middle): Albert Tristan N Gender: Male Date of : 1940 Age: 83 Procedure Date: 12/22/2023 Procedure Type: Transthoracic Echocardiogram Location: ER Height: 170.18 cm Weight: 88. kg BSA: 2.00 m2 Heart Rate: bpm BP: 161 / 84 mmHg Accounting Representative: SB Referring MD: Yash Cardoso MD Drywall Carrier: Ryan Martínez MD Symptoms: pericardial effusion Study Quality: Adequate ECG Rhythm: Sinus with extra beats Conclusions: - 1. Moderate to large pericardial effusion more prominent near the right-sided chambers with early tamponade physiology 2. Moderately dilated left ventricle with moderately reduced LV ejection fraction 3. Severely dilated left atrium 4. Mild mitral regurgitation 5. Mildly dilated ascending aorta at 3.9 cm Findings Left Ventricle Moderately increased left ventricular cavity size. There is normal left ventricular wall thickness. The left ventricular systolic function is moderately decreased. The visually estimated ejection fraction is between 35 40%. Diastolic function is indeterminate on the basis of available data. Right Ventricle Normal right ventricular cavity size. There is normal right ventricular systolic function. On subcostal view there appears to be mild diastolic collapse Atria The left atrium is severely dilated. The right atrium is mildly dilated. on subcostal and apical four-chamber view there appears to be mild systolic inversion. Aortic Valve Normal aortic valve structure and function. There is mild calcification of the aortic valve. There is no aortic valve stenosis. There is no aortic valve regurgitation. Mitral Valve There is mild anterior and posterior mitral leaflet thickening. There is mild mitral annular calcification. There is mild mitral valve regurgitation. There is no mitral valve stenosis. Pulmonic Valve The pulmonic valve was not well visualized. Tricuspid Valve Likely normal tricuspid valve structure and function. Tricuspid regurgitation envelope is inadequate for calculation of right ventricular systolic pressure. Significantly elevated right atrial pressure. Great Vessels There is mild dilatation of the ascending aorta measuring 3.90 cm. Venous The inferior vena cava is moderately dilated and collapses less than 50% with inspiration. Pericardium/Pleural there is moderate circumferential pericardial effusion gets more larger near the right-sided chambers along with dilated IVC. Mitral and tricuspid inflows were not adequately assessed. However there is also evidence of some RV diastolic inversion as well as right atrial early systolic collapse consistent with early tamponade physiology Measurements 2D Linear Measurements IVSd: 1.10 0.6-0.9/0.6-1.0 cm LVIDd: 6.90 3.9-5.3/4.2-5.9 cm LVIDd Index: 3.45 2.4-3.2/2.2-3.1 cm/m2 LVIDs: 5.38 2.0-3.6 cm LVPWd: 0.77 0.7-1.1 cm LV Mass: 360.58 67-162/88-224 g LV Mass Index: 180.29 43-95/49-115 g/m2 LVOT Diam: 2.60 3.0+(-)1.3 cm 2D Systolic Function EF 4C: 33.70 >55% EF 2C: 33.60 >55% EF BiP: 36.10 >55% Mitral Valve E'Lateral: 6.96 Aortic Valve AoV Pk Juan: 1.57 AoV Mn Juan: 1.20 AoV VTI: 0.26 AoV Pk Grad: 10.00 Aov Mn Grad: 7.00 TED Cont.VTI: 2.69 AI Pk Juan: 4.42 AI [place]: 2.71 LVOT LVOT Pk Juan: 0.84 LVOT Mn Juan: 0.59 LVOT VTI: 0.13 LVOT Pk Grad: 3.00 LVOT Mn Grad: 2.00 LVOT Diam: 2.60 LVOT Area: 5.31 Diastolic Function E' Laterial: 6.96 Right Ventricle TAPSE (mm): 19.70 Tricuspid Valve RA Press: 15.00 Great Vessels Aorta Sinus of Valsalva: 4.40 2.0-3.5 cm Ao Asc: 3.90 2.1-3.4 cm Pulmonary Valve PV Pk Juan: 0.97 Peak PV Grad: 4.00 Updated in Other Vendor System with Status of Final Ryan Martínez MD electronically signed on 12/22/2023 9:02:07 AM with status of Final
--- NOTE | 2023-12-22 08:53 | P.PNIM_ITS ---
Subjective Subjective Date of Service: 12/22/23 Interval History: Follow up on pericardial effusion patient is hemodynamically stable but complained of dizziness which he says is being gone on for 2 years. Physical Exam 2 Vital Signs: Vital Signs: Last Vital Signs Temp 98.4 F 12/22/23 08:42 Pulse 88 12/22/23 08:42 Resp 20 12/22/23 08:42 BP 138/91 H 12/22/23 08:42 Pulse Ox 92 12/22/23 08:42 O2 Del Method Room Air 12/22/23 08:42 BMI result Body Mass Index 30.4 General: AO X 3, no acute distress Resp: CTA bilateral CVS: S1,S2,RRR GI: +BS, NT, no distention Skin: No rash Neuro: motor grossly intact Psych: appropriate affect Objective Data Active Medications Acetaminophen (Acetaminophen 325 Mg Tablet) 650 mg PO Q6H PRN PRN Reason: Pain, Mild (Pain Scale 1-3), fever or headache Allopurinol (Allopurinol 300 Mg Tablet) 300 mg PO DAILY KARLENE Calcium Carbonate (Calcium Carbonate 750 Mg Tab.Chew) 750 mg PO Q4H PRN PRN Reason: Heartburn Furosemide (Furosemide 20 Mg Tablet) 20 mg PO DAILY KARLENE; Protocol Magnesium Hydroxide (Milk Of Magnesia 30 Ml Oral.Susp) 30 ml PO DAILY PRN PRN Reason: Constipation Melatonin (Melatonin 3 Mg Tablet) 6 mg PO BEDTIME PRN PRN Reason: Insomnia Sertraline HCl (Sertraline Hcl 100 Mg Tablet) 100 mg PO DAILY KARLENE Sodium Chloride (0.9 % Sodium Chloride Flush 3 Ml Syringe) 3 ml IVFLUSH QSHIFT [facility] Labs 12/21/23 21:29 12/21/23 21:29 Labs: Laboratory Results - last 24 hr 12/21/23 12/22/23 12/22/23 21:29 03:56 04:03 MCV 90.8 MCH 31.8 MCHC 35.0 RDW 13.9 Plt Count 283 D MPV 11.2 Immature Gran % (Auto) 0.6 H Neut % (Auto) 88.3 H Lymph % (Auto) 1.6 L [place] % (Auto) 9.3 Eos % (Auto) 0.0 Baso % (Auto) 0.2 Lymph # (Auto) 0.3 L [place] # (Auto) 1.8 H Eos # (Auto) 0.0 Baso # (Auto) 0.0 Abs Immat Gran (auto) 0.11 H Absolute Neuts (auto) 17.3 H Absolute Nucleated RBC 0.000 Nucleated RBC % (auto) 0.0 Smear Tech's Comments VERIFIED PT 15.3 H INR 1.3 H Anion Gap 16 Estim Creat Clear Calc 56.0 Estimated GFR > 60 Random Glucose 148 H Lactic Acid 1.1 Calcium 9.1 Magnesium 2.1 Total Bilirubin 1.2 H AST 16 ALT 20 Alkaline Phosphatase 91 Troponin I High Sens 28.2 B-Natriuretic Peptide 949 H Total Protein 6.0 L Albumin 3.9 Lipase < 4 L TSH 1.31 Urine Color Dark Yellow Urine Appearance Clear Urine pH 5.5 Ur Specific [place] >= 1.030 H Urine Protein 30 (1+) H Urine Glucose (UA) Negative Urine Ketones Negative Urine Blood Large (3+) H Urine Nitrite Negative Ur Leukocyte Esterase Trace H Urine RBC >20 H Urine WBC 0-5 Ur Squamous Epith Cells 0-2 Urine Bacteria None Seen Hyaline Casts 0-2 Influenza Type A (PCR) NEGATIVE Influenza Type B (PCR) NEGATIVE RSV RNA Qual (PCR) NEGATIVE SARS-CoV-2 RNA (RT-PCR) NEGATIVE Assessment and Plan (1) Pericardial effusion: Status: Acute Plan 83M PMH remote history of etoh dependence, hfref, mild cognitive impairment, mood disorder, bph, gout, presented with about 1 month dizziness dizziness due to acute/subacute pericardial effusion icu appreciated, no clear tamponade and hemodynamically stable echo to better assess thoracic eval, monitor on tele, cardio eval npo for possible pericardiocentesis cant rule out posterior cva, patient not willing to do mri at this time HFrEF acute on chronic continue lasix maintenance, will avoid overdiuresis in setting of pericardial effusion gout allopurinol htn will continue to hold lisinopril Leukocytosis--possibly reactive, recheck today mood disorder zoloft dvt prophylaxis - mechanical in case pericariocentesis planned full code patient with pericardial effusion symptomatic, may need window, therefore expected to require atleast 2 midnights Quality Stroke Does the patient have a stroke diagnosis?: No VTE Prior VTE?: No VTE Risk Level:: Medical - moderate - high VTE Device Contraindication: N/A - Device Ordered VTE Drug Contraindication: Treatment Not Tolerated
--- NOTE | 2023-12-22 08:53 | HO.CARDTECH ---
12-21-[address] Martínez of prelimary echo findings.
[2023-12-22] MEDS: 0.9 % Sodium Chloride Flush 3 ML SYRINGE IVFLUSH ×2 (09:08→18:11)
--- NOTE | 2023-12-22 09:29 | PHA.MEDREC ---
Addendum entered by Rico Palmer [facility] 12/22/23 09:56: MED REC DOUBLE CHECKED BY [facility] Original Note: Pharmacy Consult ? Medication Reconciliation Pharmacy has completed the medication reconciliation. Confirmed medications with patient. Patient confirmed he is all done with any antibiotics and steroids. Per patient about 2 weeks ago he states his doctor increased his Lisionpril dosing to 40mg and then discontinued that medication right after that; he has not taken that in about 2 weeks ago. Patient states he took his medication 2 days ago.
--- NOTE | 2023-12-22 09:50 | P.CONCA_ITS ---
History of Present Illness History of Present Illness Date of Service: 12/22/23 Requesting physician: Yash Cardoso Consult reason: other (Pericardial effusion) Chief complaint: pericardial effusion Narrative: I was consulted to see Albert in cardiology consultation today for pericardial effusion and is prior history of cardiomyopathy and heart failure with reduced ejection fraction. He follows with [facility]. Patient 83-year-old male who lives with his daughter now has had episodes of dizziness he says for many years. This recently over the last 7 days got significantly worse associated with low blood pressure. He was seen by Cardiology at [facility] and his lisinopril was stopped. No other workup was done. Patient then came to the hospital of unclear reason but said he got severely more lightheaded. No loss of consciousness. As per the daughter he has poor balance but refuses to use walker at home and has been falling frequently at home. The also reduced his Lasix to be taken twice a week although daughter notice that he has been having increased swelling in his legs along with increased work of breathing and was last 5 days has been taking Lasix 20 mg on a daily basis. Currently not on any vasoactive medication, came to the hospital for above symptoms. Underwent a chest CTA which showed moderately large pericardial effusion. Was seen by ICU team at bedside and had a bedside echo and the feeling was that he probably was not in tamponade physiology. Cardiology consult was sought for further management. We did echocardiogram urgently this morning which showed moderately large pericardial effusion more severe near the right-sided chambers with early RV diastolic collapse as well as atrial systolic reversal. There is also IVC which is moderately distended with blunted respiratory collapse. Overall findings suggestive of early cardiac tamponade. Patient's blood pressures remained stable here. He denies orthopnea although he said he was not able to lay flat and had to sit up. He also has increased workup breathing at this point time. He denies any palpitations. Noted to have normal sinus rhythm with frequent ectopy. Patient denies any chest pain. In the past has denied workup from ischemic perspective. Review of Systems 2 Constitutional: Constitutional: Reports frequent falls, Reports lethargy and Reports poor appetite Eyes: Eyes: Reports no additional eye complaints Cardiovascular: Cardiovascular: Denies chest pain, Reports leg edema, Reports lightheadedness, Denies Loss of Consciousness, Denies palpitations, Reports dyspnea, Reports dyspnea on exertion and Reports orthopnea Respiratory: Respiratory: Reports no additional respiratory complaints, Reports dyspnea and Reports dyspnea on exertion Gastrointestinal: Gastrointestinal: Reports no additional gastrointestinal complaints Neurologic: Reports system reviewed and no additional complaints, except as documented and Reports frequent falls Psychiatric: Psychiatric: Reports no additional psychiatric complaints Endocrine: Endocrine: Denies palpitations [facility] Past Medical History Medical History COPD (chronic obstructive pulmonary disease) CHF (congestive heart failure) Graves disease Hypertension Vertigo Dizziness Social History Social History Household Members: None Housing: House Alcohol intake: former Patient Tobacco Use Status: Never used Tobacco Smoked in Last 30 Days: No Use of substances other than those prescribed or required for medical reasons: No Advance Directives: Yes Advance Directives on File: Yes Advance Directives Date on File: 03/08/23 Nutrition Risks: No Nutritional Risk service: Yes Meds Allergies Allergy/AdvReac Type Severity Reaction Status Date / Time No Known Allergies Allergy Verified 12/21/23 20:42 Active Medications: Current Medications Acetaminophen (Acetaminophen 325 Mg Tablet) 650 mg PO Q6H PRN PRN Reason: Pain, Mild (Pain Scale 1-3), fever or headache Allopurinol (Allopurinol 300 Mg Tablet) 300 mg PO DAILY [facility] Calcium Carbonate (Calcium Carbonate 750 Mg Tab.Chew) 750 mg PO Q4H PRN PRN Reason: Heartburn Furosemide (Furosemide 20 Mg Tablet) 20 mg PO DAILY [facility]; Protocol Last Admin: 12/22/23 09:09 Dose: 20 mg Magnesium Hydroxide (Milk Of Magnesia 30 Ml Oral.Susp) 30 ml PO DAILY PRN PRN Reason: Constipation Melatonin (Melatonin 3 Mg Tablet) 6 mg PO BEDTIME PRN PRN Reason: Insomnia Sodium Chloride (0.9 % Sodium Chloride Flush 3 Ml Syringe) 3 ml IVFLUSH QSHIFT [facility] Last Admin: 12/22/23 09:08 Dose: 3 ml Home Medications ?Medication ?Instructions ?Recorded ?Confirmed ?Last Taken ?Type allopurinol 300 mg tablet 300 mg PO DAILY 03/01/23 12/22/23 12/20/23 History omeprazole 20 mg capsule,delayed 20 mg PO BID PRN Heart Burn 03/01/23 12/22/23 12/20/23 History release sertraline 100 mg tablet 150 mg PO DAILY 12/22/23 12/22/23 12/20/23 History Physical Exam 2 Vital Signs: Vital Signs: Last Vital Signs Temp 98.4 F 12/22/23 08:42 Pulse 88 12/22/23 08:42 Resp 20 12/22/23 08:42 BP 138/91 H 12/22/23 08:42 Pulse Ox 92 12/22/23 08:42 O2 Del Method Room Air 12/22/23 08:42 BMI result Body Mass Index 30.4 Const: General: cooperative and in distress moderate and respiratory N utritional Appearance: overweight Orientation/consciousness: patient oriented x3 HEENT: Head: Yes normocephalic and Yes atraumatic Neck: Neck: Yes trachea midline, Yes supple and Yes JVD Resp: Effort & Inspection: decreased respiratory effort Auscultation: no rales, no wheezes and diminished lung sounds Cardio: Jugular venous distension: JVD Rate: regular rate Rhythm: a bnormal rhythm with ectopic beats Heart sounds: S1 normal heart sound present, S2 normal heart sound present, no click, no gallops and no murmurs GI: Auscultation: normal bowel sounds Skin: General skin exam: no rashes or lesions noted Neuro: General: patient oriented x3 and no focal motor deficits Extrem: General: No clubbing, No cyanosis and Yes edema Objective Labs and Meds 12/21/23 21:29 12/21/23 21:29 Lab results: Laboratory Results - last 24 hr 12/21/23 12/22/23 12/22/23 21:29 03:56 04:03 WBC 19.6 H RBC 4.03 L Hgb 12.8 L Hct 36.6 L MCV 90.8 MCH 31.8 MCHC 35.0 RDW 13.9 Plt Count 283 D MPV 11.2 Immature Gran % (Auto) 0.6 H Neut % (Auto) 88.3 H Lymph % (Auto) 1.6 L [place] % (Auto) 9.3 Eos % (Auto) 0.0 Baso % (Auto) 0.2 Lymph # (Auto) 0.3 L [place] # (Auto) 1.8 H Eos # (Auto) 0.0 Baso # (Auto) 0.0 Abs Immat Gran (auto) 0.11 H Absolute Neuts (auto) 17.3 H Absolute Nucleated RBC 0.000 Nucleated RBC % (auto) 0.0 Smear Tech's Comments VERIFIED PT 15.3 H INR 1.3 H Sodium 136 Potassium 3.6 Chloride 102 Carbon Dioxide 22 Anion Gap 16 BUN 26 H Creatinine 1.02 Estim Creat Clear Calc 56.0 Estimated GFR > 60 Random Glucose 148 H Lactic Acid 1.1 Calcium 9.1 Magnesium 2.1 Total Bilirubin 1.2 H AST 16 ALT 20 Alkaline Phosphatase 91 Troponin I High Sens 28.2 B-Natriuretic Peptide 949 H Total Protein 6.0 L Albumin 3.9 Lipase < 4 L TSH 1.31 Urine Color Dark Yellow Urine Appearance Clear Urine pH 5.5 Ur Specific [place] >= 1.030 H Urine Protein 30 (1+) H Urine Glucose (UA) Negative Urine Ketones Negative Urine Blood Large (3+) H Urine Nitrite Negative Ur Leukocyte Esterase Trace H Urine RBC >20 H Urine WBC 0-5 Ur Squamous Epith Cells 0-2 Urine Bacteria None Seen Hyaline Casts 0-2 Influenza Type A (PCR) NEGATIVE Influenza Type B (PCR) NEGATIVE RSV RNA Qual (PCR) NEGATIVE SARS-CoV-2 RNA (RT-PCR) NEGATIVE ECHO Conclusions: - 1. Moderate to large pericardial effusion more prominent near the right-sided chambers with early tamponade physiology 2. Moderately dilated left ventricle with moderately reduced LV ejection fraction 3. Severely dilated left atrium 4. Mild mitral regurgitation 5. Mildly dilated ascending aorta at 3.9 cm Imaging Radiologist's impression: Impressions Chest X-Ray 12/21/23 21:09 IMPRESSION: Hypoexpanded with linear basilar markings more likely due to atelectasis. Tortuous aorta Chest CT 12/21/23 23:35 IMPRESSION: 1. Moderate to large pericardial effusion. 2. Small to moderate bilateral pleural effusions with atelectatic change at both lung bases. 3. Groundglass/minimal patchy infiltrative change right lower lobe. 4. Cardiomegaly. 5. 2.1 cm right thyroid nodule. Fleischner guidelines were followed. Head CT 12/21/23 23:35 IMPRESSION: 1. No acute intracranial process seen. 2. There is cerebral volume loss with extensive chronic small vessel ischemic changes. Assessment and Plan (1) Pericardial effusion: Status: Acute Moderately large pericardial effusion with early signs of tamponade could be the reason for his recent drop in his blood pressure not able to tolerate lisinopril therapy. Also could be poor tolerance to neurohormonal modulation in general. Hemodynamically currently appears to be stable but has increased workup breathing. I think he will benefit from remote of pericardial fluid to improve cardiac hemodynamics and improve his blood pressure. Either interventional radiology thoracic surgery can be consulted to bradycardia centesis. Do usual pericardial fluid workup for chemistry, cytology as well as cell count. (2) Acute CHF: Status: Acute Patient also seems to be in acute congestive heart failure, although currently also has competing pericardial tamponade. Would avoid rapid diuresis to reduce likelihood of reducing preload significantly and causing acute hypotension. High once bradycardia centesis achieved, patient require IV diuresis. If the blood pressure remained stable then will eventually resume neurohormonal modulation gradually. This was discussed with the patient patient's family. He also requires physical therapy evaluation to assess for fall risk and have strongly recommended him to use assist device to walk. Will follow with you Procedures Date of Service Date of Service: 12/22/23
[2023-12-22 10:00] LABS: Anion Gap 16 (12-20); Blood Urea Nitrogen 28 mg/dL (9-16); Carbon Dioxide 21 mmol/L (22-29); Chloride 103 mmol/L (96-108); Creatinine Clr Calc Pharmacy 61.4; Estimated Glomerular Filt Rate > 60; Glucose Random 123 mg/dL (60-115); Potassium 3.6 mmol/L (3.3-5.1); Sodium 136 mmol/L (135-145)
[2023-12-22 10:01] LABS: Hematocrit 36.7 % (42.0-52.0); Hemoglobin 12.8 g/dl (14.0-18.0); Mean Corpuscular HGB Conc 34.9 g/dl (31.0-36.0); Mean Corpuscular Hemoglobin 31.7 pg (27.0-33.0); Mean Corpuscular Volume 90.8 fL (80.0-98.0); Mean Platelet Volume 11.4 fL (9.4-12.4); Platelet Count 278 X10*3/uL (160-400); Red Blood Count 4.04 X10*6/uL (4.60-5.80); Red Cell Distribution Width 13.9 % (11.0-16.0); White Blood Count 18.2 X10*3/uL (4.8-10.8)
[2023-12-22] MEDS: allopurinoL 300 MG TABLET PO (10:01)
--- NOTE | 2023-12-22 10:07 | HO.THORCONS ---
History of Present Illness Consult details Consult date: 12/22/23 Narrative: Thoracic consult for evaluation of patient with pericardial tamponade from significant pericardial effusion. Patient presents with a collection of symptoms including chest discomfort, shortness of breath, feeling unwell and workup including CT scan followed by echo followed by cardiology consult demonstrated a pericardial effusion of large size with signs of early tamponade. Patient is not on any anticoagulation. He denies any trauma although his daughter says he does occasionally fall. He has no history of renal failure inguinal dialysis. He does not recall any significant recent illness or pneumonia. He has no other diagnosis of malignancy. Chart was reviewed and patient evaluated [facility] Past Medical History Medical History COPD (chronic obstructive pulmonary disease) CHF (congestive heart failure) Graves disease Hypertension Vertigo Dizziness Social History Social History Household Members: None Housing: House Alcohol intake: former Patient Tobacco Use Status: Never used Tobacco Smoked in Last 30 Days: No Use of substances other than those prescribed or required for medical reasons: No Advance Directives: Yes Advance Directives on File: Yes Advance Directives Date on File: 03/08/23 Nutrition Risks: No Nutritional Risk service: Yes Meds Allergies Allergy/AdvReac Type Severity Reaction Status Date / Time No Known Allergies Allergy Verified 12/21/23 20:42 Active Medications: Current Medications Acetaminophen (Acetaminophen 325 Mg Tablet) 650 mg PO Q6H PRN PRN Reason: Pain, Mild (Pain Scale 1-3), fever or headache Allopurinol (Allopurinol 300 Mg Tablet) 300 mg PO DAILY [facility] Last Admin: 12/22/23 10:01 Dose: 300 mg Calcium Carbonate (Calcium Carbonate 750 Mg Tab.Chew) 750 mg PO Q4H PRN PRN Reason: Heartburn Furosemide (Furosemide 20 Mg Tablet) 20 mg PO DAILY [facility]; Protocol Last Admin: 12/22/23 09:09 Dose: 20 mg Magnesium Hydroxide (Milk Of Magnesia 30 Ml Oral.Susp) 30 ml PO DAILY PRN PRN Reason: Constipation Melatonin (Melatonin 3 Mg Tablet) 6 mg PO BEDTIME PRN PRN Reason: Insomnia Omeprazole (Omeprazole 20 Mg Capsule.Dr) 20 mg PO BID PRN PRN Reason: Heart Burn Sertraline HCl (Sertraline Hcl 50 Mg Tablet) 150 mg PO DAILY [facility] Sodium Chloride (0.9 % Sodium Chloride Flush 3 Ml Syringe) 3 ml IVFLUSH QSHIFT [facility] Last Admin: 12/22/23 09:08 Dose: 3 ml Home Medications ?Medication ?Instructions ?Recorded ?Confirmed ?Last Taken ?Type allopurinol 300 mg tablet 300 mg PO DAILY 03/01/23 12/22/23 12/20/23 History omeprazole 20 mg capsule,delayed 20 mg PO BID PRN Heart Burn 03/01/23 12/22/23 12/20/23 History release sertraline 100 mg tablet 150 mg PO DAILY 12/22/23 12/22/23 12/20/23 History Physical Exam Vital Signs: Vital Signs: Last Vital Signs Temp 98.4 F 12/22/23 08:42 Pulse 88 12/22/23 08:42 Resp 20 12/22/23 08:42 BP 138/91 H 12/22/23 08:42 Pulse Ox 92 12/22/23 08:42 O2 Del Method Room Air 12/22/23 08:42 BMI result Body Mass Index 30.4 Const: Other: Elderly male in moderate respiratory distress. Collateral history from daughter Chest: Other: Chest breath sounds bilaterally, distant heart sounds. GI: Other: Abdomen corpulent, soft, benign Results Labs 12/22/23 09:41 12/22/23 09:41 Labs: Abnormal lab results 12/21/23 12/22/23 12/22/23 Range/Units 21:29 03:56 09:41 WBC 19.6 H 18.2 H (4.8-10.8) X10*3/uL RBC 4.03 L 4.04 L (4.60-5.80) X10*6/uL Hgb 12.8 L 12.8 L (14.0-18.0) g/dl Hct 36.6 L 36.7 L (42.0-52.0) % Immature Gran % (Auto) 0.6 H (0.0-0.4) % Neut % (Auto) 88.3 H (45-73) % Lymph % (Auto) 1.6 L (20-40) % Lymph # (Auto) 0.3 L (1.2-4.9) X10*3/uL [place] # (Auto) 1.8 H (0.1-1.2) X10*3/uL Abs Immat Gran (auto) 0.11 H (0.00-0.03) X10*3/uL Absolute Neuts (auto) 17.3 H (2.0-8.3) x10*3/uL PT 15.3 H (11.1-13.3) SEC INR 1.3 H (0.9-1.1) Carbon Dioxide 21 L (22-29) mmol/L BUN 26 H 28 H (9-16) mg/dL Random Glucose 148 H 123 H (60-115) mg/dL Total Bilirubin 1.2 H (0.0-1.0) mg/dL B-Natriuretic Peptide 949 H (<100) pg/mL Total Protein 6.0 L (6.5-8.0) g/dL Lipase < 4 L (8-78) U/L Ur Specific [place] >= 1.030 H (1.005-1.025) Urine Protein 30 (1+) H (Neg-Trace) mg/dL Urine Blood Large (3+) H (Negative) Ur Leukocyte Esterase Trace H (Negative) Urine RBC >20 H (0-2) /HPF Short CBC 12/21/23 12/22/23 Range/Units 21:29 09:41 WBC 19.6 H 18.2 H (4.8-10.8) X10*3/uL Hgb 12.8 L 12.8 L (14.0-18.0) g/dl Hct 36.6 L 36.7 L (42.0-52.0) % Plt Count 283 D 278 (160-400) X10*3/uL BMP 12/21/23 12/22/23 21:29 09:41 Sodium 136 136 Potassium 3.6 3.6 Chloride 102 103 Carbon Dioxide 22 21 L BUN 26 H 28 H Creatinine 1.02 0.93 Calcium 9.1 9.0 Liver Function 12/21/23 Range/Units 21:29 Total Bilirubin 1.2 H (0.0-1.0) mg/dL AST 16 (5-37) U/L ALT 20 (0-40) U/L Alkaline Phosphatase 91 (39-117) U/L Albumin 3.9 (3.5-5.0) g/dL Urine 12/22/23 Range/Units 03:56 Urine Color Dark Yellow Urine Appearance Clear Urine pH 5.5 (5.0-9.0) Ur Specific [place] >= 1.030 H (1.005-1.025) Urine Protein 30 (1+) H (Neg-Trace) mg/dL Urine Glucose (UA) Negative (Negative) mg/dL All other labs normal. Assessment and Plan (1) Pericardial tamponade: Status: Acute Plan Her plan is to arrange for urgent decompression of his pericardial sac with subxiphoid pericardial window. Risks, benefits and alternatives of the procedure reviewed with the patient and his daughter which included but not limited to bleeding, infection, recurrence, numbness, pain, scarring and wished to proceed. All questions answered. Arrangements were made for this presently. Procedures Date of Service Date of Service: 12/22/23
--- NOTE | 2023-12-22 10:18 | PC.NURSE ---
Patient/daughter declined all morning meds stating patient is going to surgery. Report given to charge preparation technician in OR. Per RN patient to go to surgery in roughly 20 minutes
[2023-12-22] MEDS: Albuterol Sulfate (0.083%) 2.5 MG/3 ML VIAL.NEB INHALE (11:27)
--- NOTE | 2023-12-22 11:40 | MHC.CM.PN ---
CM ATTEMPTED TO MEET WITH PT WHO WAS OFF UNIT CM WILL REVISIT
[2023-12-22] MEDS: Lactated Ringers 1,000 ML 80 ML IVCONT (12:07)
--- NOTE | 2023-12-22 12:50 | PM.EVENT ---
Event Note Date of Service: 12/22/23 Event Note: Patient is a 83 Y M presenting w/ subacute generalized symptoms, found to have CT chest demonstrating larger pericardial effusion, now s/p pericardial window; admitted ICU for further monitoring N: no acute issues CV: pericardial effusion, s/p drain, initially output 600 mL intraoperatively; to monitor drain output R: no acute issues; appreciable paradoxical abdominal breathing, reportedly chronic and not causing distress GI: NPO; advance diet as tolerated : no acute issues; likely some volume overload; furosemide H: avoid chemical DVT prophylaxis tanya-operatively; mechanical devices ID: no stigmata of infection E: to monitor hypo-/hyper-glycemia P: no acute issues Time Spent With Patient Time: Total time managing care of this patient today ____ minutes.
[2023-12-22] MEDS: Albuterol Sulfate 2.5 MG, Albuterol Sulfate (0.083%) 2.5 MG 5 MG INHALE (14:51)
[2023-12-22] MEDS: Furosemide 20 MG/2 ML VIAL 10 MG IVPUSH ×2 (15:02→18:09)
[2023-12-22 15:32] LABS: MANUAL DIFF FLAG NO
[2023-12-22 15:40] LABS: Basophils Percent Auto 0.1 % (0-2); Hemoglobin 12.5 g/dl (14.0-18.0); Imm Gran Abs Auto 0.18 X10*3/uL (0.00-0.03); Imm Gran Pct Auto 1.1 % (0.0-0.4); Lymphocytes Absolute Auto 0.2 X10*3/uL (1.2-4.9); Mean Corpuscular HGB Conc 33.8 g/dl (31.0-36.0); Mean Corpuscular Hemoglobin 31.2 pg (27.0-33.0); Mean Corpuscular Volume 92.3 fL (80.0-98.0); Mean Platelet Volume 11.5 fL (9.4-12.4); Monocytes Absolute Auto 1.4 X10*3/uL (0.1-1.2); Monocytes Percent Auto 8.3 % (2-11); Neutrophils Absolute Auto 14.9 x10*3/uL (2.0-8.3); Neutrophils Percent Auto 89.5 % (45-73); Platelet Count 281 X10*3/uL (160-400); Red Blood Count 4.01 X10*6/uL (4.60-5.80); Red Cell Distribution Width 14.2 % (11.0-16.0); White Blood Count 16.7 X10*3/uL (4.8-10.8)
--- NOTE | 2023-12-22 15:47 | P.OP_ITS ---
Operative Note Operative Note Date of Service: 12/22/23 Narrative: Preoperative diagnosis: [] Massive pericardial effusion, pericardial tamponade Postop diagnosis: [] The same Procedure [] subxiphoid pericardial window, pericardial biopsy Surgeon: [] [employer] Tender: [] Type of Anesthesia: [] MAC Indication for surgery: [] 600 cc plus of serous fluid was retrieved. Specimens were sent for culture and cytology. Biopsy or pericardial well was also undertaken. Digital exploration of pericardium demonstrated no studding or masses demonstrated. Findings: [] Patient brought to the operating room, placed on operative table supine position, after an adequate level of MAC anesthesia was induced, the patient's abdomen and upper chest were prepped And draped in usual sterile fashion. Using an upper midline subxiphoid incision, extended just to the left of the xiphoid, This carried down through skin, subcutaneous tissue, and linea alba. Posterior fascia and peritoneum were opened and stented along lengthy incision. Extraperitoneal dissection to the pericardial sac was performed and a pericardiotomy done and 600 cc plus of serous fluid was retrieved. Specimen sent as noted above. Next using Bovie, a pericardial window was performed and pericardial specimen sent to pathology as well. Through a separate stab wound incision left upper quadrant, large Lugo catheter was placed in the pericardium and this was sutured to the skin using 0 silk suture. Wound was irrigated, secured hemostasis, and closed in the following manner; fascia was closed using running looped 0 PDS suture. Skin was closed using interrupted inverted dermal 3-0 Vicryl sutures followed by Steri-Strips and sterile dressings. Wounds were infiltrated the beginning and at the end of the case using for 5% Marcaine/1% lidocaine. Sponge, needle, and instrument counts reported correct. Patient tolerated the procedure well and emerged from anesthesia stable condition. EBL minimal
[2023-12-22 16:04] LABS: Anion Gap 14 (12-20); Blood Urea Nitrogen 32 mg/dL (9-16); Calcium 9.1 mg/dL (8.4-10.2); Carbon Dioxide 26 mmol/L (22-29); Chloride 102 mmol/L (96-108); Creatinine Clr Calc Pharmacy 49.7; Estimated Glomerular Filt Rate > 60; Glucose Random 122 mg/dL (60-115); Magnesium 2.1 mg/dL (1.6-2.6); Phosphorus 5.2 mg/dL (2.7-4.5); Potassium 3.5 mmol/L (3.3-5.1); Sodium 138 mmol/L (135-145)
[2023-12-22 16:06] LABS: B Type Natriuretic Peptide 650 pg/mL (<100)
[2023-12-22] MEDS: Acetaminophen 1,000 MG/100 ML PIGGYBACK 400 MG IV (16:08)
[2023-12-22 19:54] LABS: MANUAL DIFF FLAG NO
[2023-12-22 19:55] LABS: Basophils Percent Auto 0.1 % (0-2); Hematocrit 36.7 % (42.0-52.0); Hemoglobin 12.6 g/dl (14.0-18.0); Imm Gran Abs Auto 0.11 X10*3/uL (0.00-0.03); Imm Gran Pct Auto 0.7 % (0.0-0.4); Lymphocytes Absolute Auto 0.2 X10*3/uL (1.2-4.9); Lymphocytes Percent Auto 1.1 % (20-40); Mean Corpuscular HGB Conc 34.3 g/dl (31.0-36.0); Mean Corpuscular Hemoglobin 31.4 pg (27.0-33.0); Mean Corpuscular Volume 91.5 fL (80.0-98.0); Mean Platelet Volume 11.3 fL (9.4-12.4); Monocytes Absolute Auto 1.4 X10*3/uL (0.1-1.2); Monocytes Percent Auto 8.2 % (2-11); Neutrophils Percent Auto 89.9 % (45-73); Platelet Count 262 X10*3/uL (160-400); Red Blood Count 4.01 X10*6/uL (4.60-5.80); White Blood Count 16.6 X10*3/uL (4.8-10.8)
[2023-12-22 20:09] LABS: Alanine Aminotransferase 25 U/L (0-40); Albumin Level 3.4 g/dL (3.5-5.0); Alkaline Phosphatase 79 U/L (39-117); Anion Gap 14 (12-20); Aspartate Amino Transferase 27 U/L (5-37); Blood Urea Nitrogen 30 mg/dL (9-16); Calcium 8.8 mg/dL (8.4-10.2); Carbon Dioxide 27 mmol/L (22-29); Chloride 103 mmol/L (96-108); Estimated Glomerular Filt Rate > 60; Glucose Random 130 mg/dL (60-115); Potassium 3.5 mmol/L (3.3-5.1); Sodium 140 mmol/L (135-145); Total Protein 5.3 g/dL (6.5-8.0)
[2023-12-22 20:13] LABS: Lymphs Pericardial Fl 66 %; Monocytes Pericard Fl 2 %; Neutrophils Pericardial Fluid 12 %; Other Pericard Fl 20 %; RBC Pericardial Fluid 3890 MM*3
[2023-12-22 20:14] LABS: BF Shift QC OK YES; WBC Pericardial Fluid 68 MM*3
[2023-12-23] VITALS (16 sets, daily range): BP systolic 102–153; BP diastolic 57–74; PULSE 62–129; RESP 16–20; TEMP 36.1–36.8; O2SAT 92–97; BMI 30.7
[2023-12-23] MEDS: cefEPime HCl 2 GM in 0.9 % Sodium Chloride 50 ML IV ×3 (00:56→17:34)
[2023-12-23] MEDS: 0.9 % Sodium Chloride Flush 3 ML SYRINGE IVFLUSH ×4 (00:56→20:57)
[2023-12-23 04:40] LABS: MANUAL DIFF FLAG NO
[2023-12-23 04:44] LABS: VBG Base Excess 5.1 mmol/L; VBG HCO3 28 mmol/L (22-26); VBG pCO2 38 mmHg; VBG pH 7.47 (7.32-7.43); VBG pO2 80 mmHg
[2023-12-23 04:46] LABS: Venous Blood Gas Refer to POC result
[2023-12-23 04:46] LABS: Basophils Percent Auto 0.1 % (0-2); Hematocrit 35.7 % (42.0-52.0); Hemoglobin 12.1 g/dl (14.0-18.0); Imm Gran Abs Auto 0.07 X10*3/uL (0.00-0.03); Imm Gran Pct Auto 0.5 % (0.0-0.4); Lymphocytes Absolute Auto 0.5 X10*3/uL (1.2-4.9); Lymphocytes Percent Auto 3.4 % (20-40); Mean Corpuscular HGB Conc 33.9 g/dl (31.0-36.0); Mean Corpuscular Hemoglobin 31.2 pg (27.0-33.0); Mean Platelet Volume 11.1 fL (9.4-12.4); Monocytes Absolute Auto 1.4 X10*3/uL (0.1-1.2); Monocytes Percent Auto 10.7 % (2-11); Neutrophils Absolute Auto 11.4 x10*3/uL (2.0-8.3); Neutrophils Percent Auto 85.3 % (45-73); Platelet Count 269 X10*3/uL (160-400); Red Blood Count 3.88 X10*6/uL (4.60-5.80); White Blood Count 13.4 X10*3/uL (4.8-10.8)
[2023-12-23 05:09] LABS: Anion Gap 12 (12-20); Blood Urea Nitrogen 30 mg/dL (9-16); Calcium 8.7 mg/dL (8.4-10.2); Carbon Dioxide 27 mmol/L (22-29); Chloride 104 mmol/L (96-108); Creatinine Clr Calc Pharmacy 60.5; Estimated Glomerular Filt Rate > 60; Glucose Random 109 mg/dL (60-115); Magnesium 2.3 mg/dL (1.6-2.6); Phosphorus 4.6 mg/dL (2.7-4.5); Potassium 3.4 mmol/L (3.3-5.1); Sodium 140 mmol/L (135-145)
[2023-12-23 05:25] LABS: Procalcitonin 0.16 ng/mL
--- NOTE | 2023-12-23 08:05 | P.PNCC_ITS ---
Subjective Subjective Date of Service: 12/23/23 Interval History: no significant overnight events Critical Care Time (minutes): 0 Physical Exam 2 Vital Signs: Vital Signs: Last Vital Signs Temp 97.8 F 12/23/23 04:00 Pulse 69 12/23/23 07:00 Resp 20 12/23/23 07:38 BP 133/64 12/23/23 07:00 Pulse Ox 93 12/23/23 07:00 O2 Del Method Nasal Cannula 12/23/23 07:00 O2 Flow Rate 4 12/23/23 07:00 FiO2 30 12/22/23 21:00 Oxygen Flow Rate 4 12/22/23 18:00 BMI result Body Mass Index 30.7 Objective Data Labs 12/23/23 04:33 12/23/23 04:33 Labs: Laboratory Results - last 24 hr 12/22/23 12/22/23 12/22/23 09:41 14:58 15:26 WBC 18.2 H 16.7 H RBC 4.04 L 4.01 L Hgb 12.8 L 12.5 L Hct 36.7 L 37.0 L MCV 90.8 92.3 MCH 31.7 31.2 MCHC 34.9 33.8 RDW 13.9 14.2 Plt Count 278 281 MPV 11.4 11.5 Immature Gran % (Auto) 1.1 H Neut % (Auto) 89.5 H Lymph % (Auto) 1.0 L [place] % (Auto) 8.3 Eos % (Auto) 0.0 Baso % (Auto) 0.1 Lymph # (Auto) 0.2 L [place] # (Auto) 1.4 H Eos # (Auto) 0.0 Baso # (Auto) 0.0 Abs Immat Gran (auto) 0.18 H Absolute Neuts (auto) 14.9 H Absolute Nucleated RBC 0.000 0.000 Nucleated RBC % (auto) 0.0 0.0 VBG pH VBG pCO2 VBG pO2 VBG HCO3 VBG O2 Saturation VBG Base Excess Sodium 136 138 Potassium 3.6 3.5 Chloride 103 102 Carbon Dioxide 21 L 26 Anion Gap 16 14 BUN 28 H 32 H Creatinine 0.93 1.15 Estim Creat Clear Calc 61.4 49.7 Estimated GFR > 60 > 60 Random Glucose 123 H 122 H Calcium 9.0 9.1 Phosphorus 5.2 H Magnesium 2.1 Total Bilirubin AST ALT Alkaline Phosphatase B-Natriuretic Peptide 650 H Total Protein Albumin Procalcitonin [place] WBC 68 [place] RBC 3890 [place] Neutrophils 12 [place] Lymphocytes 66 [place] Monocytes 2 [place] Other Cells 20 12/22/23 12/23/23 12/23/23 19:45 04:33 04:34 WBC 16.6 H 13.4 H RBC 4.01 L 3.88 L Hgb 12.6 L 12.1 L Hct 36.7 L 35.7 L MCV 91.5 92.0 MCH 31.4 31.2 MCHC 34.3 33.9 RDW 14.0 14.0 Plt Count 262 269 MPV 11.3 11.1 Immature Gran % (Auto) 0.7 H 0.5 H Neut % (Auto) 89.9 H 85.3 H Lymph % (Auto) 1.1 L 3.4 L [place] % (Auto) 8.2 10.7 Eos % (Auto) 0.0 0.0 Baso % (Auto) 0.1 0.1 Lymph # (Auto) 0.2 L 0.5 L [place] # (Auto) 1.4 H 1.4 H Eos # (Auto) 0.0 0.0 Baso # (Auto) 0.0 0.0 Abs Immat Gran (auto) 0.11 H 0.07 H Absolute Neuts (auto) 15.0 H 11.4 H Absolute Nucleated RBC 0.000 0.000 Nucleated RBC % (auto) 0.0 0.0 VBG pH 7.47 H VBG pCO2 38 VBG pO2 80 VBG HCO3 28 H VBG O2 Saturation 96.0 VBG Base Excess 5.1 Sodium 140 140 Potassium 3.5 3.4 Chloride 103 104 Carbon Dioxide 27 27 Anion Gap 14 12 BUN 30 H 30 H Creatinine 1.15 0.95 Estim Creat Clear Calc 50.0 60.5 Estimated GFR > 60 > 60 Random Glucose 130 H 109 Calcium 8.8 8.7 Phosphorus 4.6 H Magnesium 2.3 Total Bilirubin 1.0 AST 27 ALT 25 Alkaline Phosphatase 79 B-Natriuretic Peptide Total Protein 5.3 L Albumin 3.4 L Procalcitonin 0.16 [place] WBC [place] RBC [facility] Neutrophils Per[place]ard Lymphocytes [facility] Monocytes [place] Other Cells Microbiology Microbiology Results: Microbiology 12/22/23 04:03 Blood - Venous Blood Culture - Preliminary No growth after 24 hours. 12/22/23 04:03 Blood - Venous Blood Culture - Preliminary No growth after 24 hours. 12/22/23 13:43 Pericardial Fluid Gram Stain - Final Progress Note: A&P Assessment and plan (1) Pericardial tamponade: Status: Acute (2) Bilateral pleural effusion: Status: Acute (3) Hypertension: Status: Acute Plan Patient is a 83 Y M presenting w/ subacute generalized symptoms, found to have CT chest demonstrating larger pericardial effusion, now s/p pericardial window; admitted ICU for further monitoring N: no acute issues CV: pericardial effusion, s/p drain, initially output 600 mL intraoperatively; to monitor drain output R: no acute issues; appreciable paradoxical abdominal breathing, reportedly chronic and not causing distress GI: NPO; advance diet as tolerated : no acute issues; likely some volume overload; furosemide H: avoid chemical DVT prophylaxis tanya-operatively; mechanical devices ID: CT C w/ RLL opacity, possible pneumonia, empiric cefepime E: to monitor hypo-/hyper-glycemia P: no acute issues Quality Stroke Does the patient have a stroke diagnosis?: No VTE Prior VTE?: No VTE Risk Level:: Medical - moderate - high VTE Device Contraindication: N/A - Device Ordered VTE Drug Contraindication: Treatment Not Tolerated
[2023-12-23] MEDS: Sertraline HCL 50 MG TABLET 150 MG PO (09:23)
[2023-12-23] MEDS: allopurinoL 300 MG TABLET PO (09:23)
[2023-12-23] MEDS: Furosemide 20 MG/2 ML VIAL 10 MG IVPUSH (09:23)
[2023-12-23] MEDS: Omeprazole/Na Bicarb Oral Susp 20 MG/10 ML UD Cup PO (09:46)
[2023-12-23] MEDS: Labetalol HCL 100 MG/20 ML VIAL IVPUSH (10:15)
--- NOTE | 2023-12-23 11:00 | CA_ITS ---
Transthoracic Echocardiogram Patient (Last, First, Middle): Albert Tristan N Gender: Male Date of : 1940 Age: 83 Procedure Date: 12/23/2023 Procedure Type: Transthoracic Echocardiogram Location: [facility] [place] Height: 170.18 cm Weight: 88.91 kg BSA: 2.00 m2 Heart Rate: bpm BP: 153 / 71 mmHg Kiln Remover: RAMONA Referring MD: Ryan Martínez MD Furnace Reliner: Ryan Martínez MD Symptoms: s/p pericardial drainage Study Quality: Adequate ECG Rhythm: Atrial Fibrillation Conclusions: - 1. Small pericardial effusion, difficult to evaluate tamponade due to atrial fibrillation rapid ventricular response. Constriction can not be also entirely ruled out 2. Moderate to severely reduced LV ejection fraction, marginally reduced LV ejection fraction could be due to atrial fibrillation 3. Increase right atrial pressures Findings Left Ventricle Moderately increased left ventricular cavity size. The left ventricular systolic function is moderate to severely decreased. The visually estimated ejection fraction is between 35-40%. Diastolic function is indeterminate on the basis of available data. Venous The inferior vena cava is mildly dilated and collapses less than 50% with inspiration. Pericardium/Pleural There is a small loculated pericardial effusion overlying the right ventricle and right atrium. Prior Study Comparison Changes noted compared to prior study dated: 12/22/2023. pericardial effusion has improved. LV systolic function has marginally reduced Measurements 2D Linear Measurements LVIDd: 6.49 3.9-5.3/4.2-5.9 cm LVIDd Index: 3.25 2.4-3.2/2.2-3.1 cm/m2 LVIDs: 5.24 2.0-3.6 cm LVOT Diam: 2.40 3.0+(-)1.3 cm 2D Systolic Function EF 4C: 33.00 >55% EF 2C: 32.40 >55% EF BiP: 33.20 >55% LVOT LVOT Pk Juan: 0.83 LVOT Mn Juan: 0.61 LVOT VTI: 0.12 LVOT Pk Grad: 3.00 LVOT Mn Grad: 2.00 LVOT Diam: 2.40 LVOT Area: 4.52 Tricuspid Valve RA Press: 8.00 Updated in Other Vendor System with Status of Final Ryan Martínez MD electronically signed on 12/23/2023 1:54:27 PM with status of Final
--- NOTE | 2023-12-23 11:12 | P.PNIM_ITS ---
Subjective Subjective Date of Service: 12/23/23 Interval History: Follow up on pericardial effusion s/p pericardial window 12/19, feels better no sob, no dizzines, Out of ICU this am New onset AFIB with RVR HR 100s to 120 Physical Exam 2 Vital Signs: Vital Signs: Last Vital Signs Temp 97.0 F 12/23/23 11:00 Pulse 101 H 12/23/23 11:00 Resp 20 12/23/23 11:00 BP 109/73 12/23/23 11:00 Pulse Ox 94 12/23/23 11:00 O2 Del Method Nasal Cannula 12/23/23 11:00 O2 Flow Rate 5 12/23/23 11:00 FiO2 30 12/22/23 21:00 Oxygen Flow Rate 4 12/22/23 18:00 BMI result Body Mass Index 30.7 General: AO X 3, no acute distress Resp: CTA bilateral CVS: S1,S2, iregular iregular perical tube in place with scan blood in bag GI: +BS, NT, no distention Skin: No rash Neuro: motor grossly intact Psych: appropriate affect Objective Data Active Medications Allopurinol (Allopurinol 300 Mg Tablet) 300 mg PO DAILY [facility] Last Admin: 12/23/23 09:23 Dose: 300 mg Documented By: ANTIONE Furosemide (Furosemide 20 Mg/2 Ml Vial) 10 mg IVPUSH BID@0900,1800 KARLENE; Protocol Last Admin: 12/23/23 09:23 Dose: 10 mg Documented By: ANTIONE Cefepime HCl 2 gm/ Sodium (Chloride) 50 mls @ 100 mls/hr IV Q8H KARLENE Stop: 12/26/23 08:59 Last Infusion: 12/23/23 09:55 Dose: Infused Documented By: ANTIONE Omeprazole (Omeprazole/Na Bicarb Oral Susp 20 Mg/10 Ml Ud Cup) 20 mg PO BID@0630,1630 PRN PRN Reason: Heartburn Last Admin: 12/23/23 09:46 Dose: 20 mg Documented By: ANTIONE Sertraline HCl (Sertraline Hcl 50 Mg Tablet) 150 mg PO DAILY [facility] Last Admin: 12/23/23 09:23 Dose: 150 mg Documented By: ANTIONE Sodium Chloride (0.9 % Sodium Chloride Flush 3 Ml Syringe) 3 ml IVFLUSH QSHIFT [facility] Last Admin: 12/23/23 09:19 Dose: 3 ml Documented By: ANTIONE Labs 12/23/23 04:33 12/23/23 04:33 Labs: Laboratory Results - last 24 hr 12/22/23 12/22/23 12/22/23 14:58 15:26 19:45 MCV 92.3 91.5 MCH 31.2 31.4 MCHC 33.8 34.3 RDW 14.2 14.0 Plt Count 281 262 MPV 11.5 11.3 Immature Gran % (Auto) 1.1 H 0.7 H Neut % (Auto) 89.5 H 89.9 H Lymph % (Auto) 1.0 L 1.1 L [place] % (Auto) 8.3 8.2 Eos % (Auto) 0.0 0.0 Baso % (Auto) 0.1 0.1 Lymph # (Auto) 0.2 L 0.2 L [place] # (Auto) 1.4 H 1.4 H Eos # (Auto) 0.0 0.0 Baso # (Auto) 0.0 0.0 Abs Immat Gran (auto) 0.18 H 0.11 H Absolute Neuts (auto) 14.9 H 15.0 H Absolute Nucleated RBC 0.000 0.000 Nucleated RBC % (auto) 0.0 0.0 VBG pH VBG pCO2 VBG pO2 VBG HCO3 VBG O2 Saturation VBG Base Excess Anion Gap 14 14 Estim Creat Clear Calc 49.7 50.0 Estimated GFR > 60 > 60 Random Glucose 122 H 130 H Calcium 9.1 8.8 Phosphorus 5.2 H Magnesium 2.1 Total Bilirubin 1.0 AST 27 ALT 25 Alkaline Phosphatase 79 B-Natriuretic Peptide 650 H Total Protein 5.3 L Albumin 3.4 L Procalcitonin Pericard WBC 68 Per[place]ard RBC 3890 [place] Neutrophils 12 [place] Lymphocytes 66 Per[place]ard Monocytes 2 Pericard Other Cells 20 12/23/23 12/23/23 04:33 04:34 MCV 92.0 MCH 31.2 MCHC 33.9 RDW 14.0 Plt Count 269 MPV 11.1 Immature Gran % (Auto) 0.5 H Neut % (Auto) 85.3 H Lymph % (Auto) 3.4 L [place] % (Auto) 10.7 Eos % (Auto) 0.0 Baso % (Auto) 0.1 Lymph # (Auto) 0.5 L [place] # (Auto) 1.4 H Eos # (Auto) 0.0 Baso # (Auto) 0.0 Abs Immat Gran (auto) 0.07 H Absolute Neuts (auto) 11.4 H Absolute Nucleated RBC 0.000 Nucleated RBC % (auto) 0.0 VBG pH 7.47 H VBG pCO2 38 VBG pO2 80 VBG HCO3 28 H VBG O2 Saturation 96.0 VBG Base Excess 5.1 Anion Gap 12 Estim Creat Clear Calc 60.5 Estimated GFR > 60 Random Glucose 109 Calcium 8.7 Phosphorus 4.6 H Magnesium 2.3 Total Bilirubin AST ALT Alkaline Phosphatase B-Natriuretic Peptide Total Protein Albumin Procalcitonin 0.16 Pericard WBC Pericard RBC Pericard Neutrophils Pericard Lymphocytes Pericard Monocytes Pericard Other Cells Microbiology Microbiology Results: Microbiology 12/22/23 04:03 Blood Culture - Preliminary Blood - Venous No growth after 24 hours. 12/22/23 04:03 Blood Culture - Preliminary Blood - Venous No growth after 24 hours. 12/22/23 13:43 Gram Stain - Final Pericardial Fluid Assessment and Plan (1) Pericardial effusion: Status: Acute Plan 83M PMH remote history of etoh dependence, hfref, mild cognitive impairment, mood disorder, bph, gout, presented with about 1 month dizziness Pericardial effusion with early tamponade s/p pericardial window by Dr. Norman 12/20, was in icu overnight, minimal drain at this time fluid analysis no evidence of infection, high RBCs (bloody), Cytology pending HFrEF, acute on chronic -Continue IV Lasix -monitor i/o, bmp -cardiology following New AFIB with RVR -likely from periocardial iritation from tube, tube to be removed, -low dose metoprolol for rate control -if resolves after tube pericardial tube removal, no need for anticoagulation gout -allopurinol htn--BP on lower side, -hold lisinopril Leukocytosis--reactive, trending down mood disorder zoloft dvt prophylaxis - mechanical d/t bloody pericardial effusion, reassess after tube removal, mechanical device for now full code need for inpt: management of pericardial effusion w/ early tamponade s/p window Quality Stroke Does the patient have a stroke diagnosis?: No VTE Prior VTE?: No VTE Risk Level:: Medical - moderate - high VTE Device Contraindication: N/A - Device Ordered VTE Drug Contraindication: Treatment Not Tolerated
--- NOTE | 2023-12-23 11:23 | P.PNGS_ITS ---
Subjective Subjective Date of Service: 12/24/23 Interval history: Patient says he feels better Still with some shortness of breath although he says this is approved No events reported from the ICU Now in IMC unit Physical Exam 2 Vital Signs: Vital Signs: Last Vital Signs Temp 97.0 F 12/23/23 11:00 Pulse 101 H 12/23/23 11:00 Resp 20 12/23/23 11:00 BP 109/73 12/23/23 11:00 Pulse Ox 94 12/23/23 11:00 O2 Del Method Nasal Cannula 12/23/23 11:00 O2 Flow Rate 5 12/23/23 11:00 FiO2 30 12/22/23 21:00 Oxygen Flow Rate 4 12/22/23 18:00 BMI result Body Mass Index 30.7 Const: Other: Some shortness of breath Resp: Other: Some shortness of breath Effort & Inspection: able to speak in complete sentences Cardio: Other: Drain to pericardium in place, scanty serosanguineous output Rate: tachycardic GI: Palpation (GI): Soft to palpation, not firm and nontender Objective Data Active Medications Allopurinol (Allopurinol 300 Mg Tablet) 300 mg PO DAILY [facility] Last Admin: 12/23/23 09:23 Dose: 300 mg Documented By: ANTIONE Furosemide (Furosemide 20 Mg/2 Ml Vial) 10 mg IVPUSH BID@0900,1800 KARLENE; Protocol Last Admin: 12/23/23 09:23 Dose: 10 mg Documented By: ANTIONE Cefepime HCl 2 gm/ Sodium (Chloride) 50 mls @ 100 mls/hr IV Q8H KARLENE Stop: 12/26/23 08:59 Last Infusion: 12/23/23 09:55 Dose: Infused Documented By: ANTIONE Omeprazole (Omeprazole/Na Bicarb Oral Susp 20 Mg/10 Ml Ud Cup) 20 mg PO BID@0630,1630 PRN PRN Reason: Heartburn Last Admin: 12/23/23 09:46 Dose: 20 mg Documented By: ANTIONE Sertraline HCl (Sertraline Hcl 50 Mg Tablet) 150 mg PO DAILY [facility] Last Admin: 12/23/23 09:23 Dose: 150 mg Documented By: ANTIONE Sodium Chloride (0.9 % Sodium Chloride Flush 3 Ml Syringe) 3 ml IVFLUSH QSHIFT [facility] Last Admin: 12/23/23 09:19 Dose: 3 ml Documented By: ANTIONE Labs 12/24/23 06:27 12/24/23 06:27 Labs: Laboratory Results - last 24 hr 12/22/23 12/22/23 12/22/23 14:58 15:26 19:45 MCV 92.3 91.5 MCH 31.2 31.4 MCHC 33.8 34.3 RDW 14.2 14.0 Plt Count 281 262 MPV 11.5 11.3 Immature Gran % (Auto) 1.1 H 0.7 H Neut % (Auto) 89.5 H 89.9 H Lymph % (Auto) 1.0 L 1.1 L [place] % (Auto) 8.3 8.2 Eos % (Auto) 0.0 0.0 Baso % (Auto) 0.1 0.1 Lymph # (Auto) 0.2 L 0.2 L [place] # (Auto) 1.4 H 1.4 H Eos # (Auto) 0.0 0.0 Baso # (Auto) 0.0 0.0 Abs Immat Gran (auto) 0.18 H 0.11 H Absolute Neuts (auto) 14.9 H 15.0 H Absolute Nucleated RBC 0.000 0.000 Nucleated RBC % (auto) 0.0 0.0 VBG pH VBG pCO2 VBG pO2 VBG HCO3 VBG O2 Saturation VBG Base Excess Anion Gap 14 14 Estim Creat Clear Calc 49.7 50.0 Estimated GFR > 60 > 60 Random Glucose 122 H 130 H Calcium 9.1 8.8 Phosphorus 5.2 H Magnesium 2.1 Total Bilirubin 1.0 AST 27 ALT 25 Alkaline Phosphatase 79 B-Natriuretic Peptide 650 H Total Protein 5.3 L Albumin 3.4 L Procalcitonin Pericard WBC 68 Pericard RBC 3890 Pericard Neutrophils 12 Pericard Lymphocytes 66 Pericard Monocytes 2 Pericard Other Cells 20 12/23/23 12/23/23 04:33 04:34 MCV 92.0 MCH 31.2 MCHC 33.9 RDW 14.0 Plt Count 269 MPV 11.1 Immature Gran % (Auto) 0.5 H Neut % (Auto) 85.3 H Lymph % (Auto) 3.4 L [place] % (Auto) 10.7 Eos % (Auto) 0.0 Baso % (Auto) 0.1 Lymph # (Auto) 0.5 L [place] # (Auto) 1.4 H Eos # (Auto) 0.0 Baso # (Auto) 0.0 Abs Immat Gran (auto) 0.07 H Absolute Neuts (auto) 11.4 H Absolute Nucleated RBC 0.000 Nucleated RBC % (auto) 0.0 VBG pH 7.47 H VBG pCO2 38 VBG pO2 80 VBG HCO3 28 H VBG O2 Saturation 96.0 VBG Base Excess 5.1 Anion Gap 12 Estim Creat Clear Calc 60.5 Estimated GFR > 60 Random Glucose 109 Calcium 8.7 Phosphorus 4.6 H Magnesium 2.3 Total Bilirubin AST ALT Alkaline Phosphatase B-Natriuretic Peptide Total Protein Albumin Procalcitonin 0.16 Pericard WBC Pericard RBC Pericard Neutrophils Pericard Lymphocytes Pericard Monocytes Pericard Other Cells Microbiology Microbiology Results: Microbiology 12/22/23 04:03 Blood Culture - Preliminary Blood - Venous No growth after 24 hours. 12/22/23 04:03 Blood Culture - Preliminary Blood - Venous No growth after 24 hours. 12/22/23 13:43 Gram Stain - Final Pericardial Fluid Procedures Date of Service Date of Service: 12/24/23 Progress Note: A&P Assessment and plan (1) Pericardial tamponade: Status: Acute Assessment and Plan: Status post pericardial window Drain in place to pericardium Keep drain to gravity drainage Continues to rest of care as per hospitalist Pain management Time Spent With Patient Time: Total time managing care of this patient today ____ minutes. Quality Stroke Does the patient have a stroke diagnosis?: No VTE Prior VTE?: No VTE Risk Level:: Medical - moderate - high VTE Device Contraindication: N/A - Device Ordered VTE Drug Contraindication: Treatment Not Tolerated
--- NOTE | 2023-12-23 13:28 | P.PNCA_ITS ---
Subjective Subjective Date of Service: 12/23/23 Interval history: Patient underwent pericardial drainage yesterday with pericardial window draining 600 cc of fluid, status post pericardial drain. Developed atrial fibrillation. Was admitted to ICU and transferred out this morning. Remains in atrial fibrillation rapid ventricular response. Denies shortness of breath but visibly appears to be short of breath. Review of Systems Constitutional: Reports no additional constitutional complaints Cardiovascular: Denies chest pain, Denies lightheadedness, Denies palpitations and Reports dyspnea Respiratory: Reports dyspnea Endocrine: Denies palpitations Physical Exam Vital Signs: Last Vital Signs Temp 97.0 F 12/23/23 11:00 Pulse 101 H 12/23/23 11:00 Resp 20 12/23/23 11:00 BP 109/73 12/23/23 11:00 Pulse Ox 94 12/23/23 11:00 O2 Del Method Nasal Cannula 12/23/23 11:00 O2 Flow Rate 5 12/23/23 11:00 FiO2 30 12/22/23 21:00 Oxygen Flow Rate 4 12/22/23 18:00 BMI result Body Mass Index 30.7 Const General: cooperative and in distress respiratory Nutritional Appearance: overweight Neck Neck: Yes trachea midline, Yes supple and Yes JVD Resp Effort & Inspection: decreased respiratory effort Auscultation: wheezes and diminished lung sounds Cardio Rate: tachycardic Rhythm: abnormal rhythm irregularly irregular Heart sounds: S1 normal heart sound present, S2 normal heart sound present, no click and no gallops GI Auscultation: normal bowel sounds Neuro General: no focal motor deficits Extrem General: No clubbing, No cyanosis and Yes edema Objective Labs and Meds 12/23/23 04:33 12/23/23 04:33 Lab results: Laboratory Results - last 24 hr 12/22/23 12/22/23 12/22/23 14:58 15:26 19:45 WBC 16.7 H 16.6 H RBC 4.01 L 4.01 L Hgb 12.5 L 12.6 L Hct 37.0 L 36.7 L MCV 92.3 91.5 MCH 31.2 31.4 MCHC 33.8 34.3 RDW 14.2 14.0 Plt Count 281 262 MPV 11.5 11.3 Immature Gran % (Auto) 1.1 H 0.7 H Neut % (Auto) 89.5 H 89.9 H Lymph % (Auto) 1.0 L 1.1 L [place] % (Auto) 8.3 8.2 Eos % (Auto) 0.0 0.0 Baso % (Auto) 0.1 0.1 Lymph # (Auto) 0.2 L 0.2 L [place] # (Auto) 1.4 H 1.4 H Eos # (Auto) 0.0 0.0 Baso # (Auto) 0.0 0.0 Abs Immat Gran (auto) 0.18 H 0.11 H Absolute Neuts (auto) 14.9 H 15.0 H Absolute Nucleated RBC 0.000 0.000 Nucleated RBC % (auto) 0.0 0.0 VBG pH VBG pCO2 VBG pO2 VBG HCO3 VBG O2 Saturation VBG Base Excess Sodium 138 140 Potassium 3.5 3.5 Chloride 102 103 Carbon Dioxide 26 27 Anion Gap 14 14 BUN 32 H 30 H Creatinine 1.15 1.15 Estim Creat Clear Calc 49.7 50.0 Estimated GFR > 60 > 60 Random Glucose 122 H 130 H Calcium 9.1 8.8 Phosphorus 5.2 H Magnesium 2.1 Total Bilirubin 1.0 AST 27 ALT 25 Alkaline Phosphatase 79 B-Natriuretic Peptide 650 H Total Protein 5.3 L Albumin 3.4 L Procalcitonin Pericard WBC 68 Pericard RBC 3890 Pericard Neutrophils 12 Pericard Lymphocytes 66 Pericard Monocytes 2 Pericard Other Cells 20 12/23/23 12/23/23 04:33 04:34 WBC 13.4 H RBC 3.88 L Hgb 12.1 L Hct 35.7 L MCV 92.0 MCH 31.2 MCHC 33.9 RDW 14.0 Plt Count 269 MPV 11.1 Immature Gran % (Auto) 0.5 H Neut % (Auto) 85.3 H Lymph % (Auto) 3.4 L [place] % (Auto) 10.7 Eos % (Auto) 0.0 Baso % (Auto) 0.1 Lymph # (Auto) 0.5 L [place] # (Auto) 1.4 H Eos # (Auto) 0.0 Baso # (Auto) 0.0 Abs Immat Gran (auto) 0.07 H Absolute Neuts (auto) 11.4 H Absolute Nucleated RBC 0.000 Nucleated RBC % (auto) 0.0 VBG pH 7.47 H VBG pCO2 38 VBG pO2 80 VBG HCO3 28 H VBG O2 Saturation 96.0 VBG Base Excess 5.1 Sodium 140 Potassium 3.4 Chloride 104 Carbon Dioxide 27 Anion Gap 12 BUN 30 H Creatinine 0.95 Estim Creat Clear Calc 60.5 Estimated GFR > 60 Random Glucose 109 Calcium 8.7 Phosphorus 4.6 H Magnesium 2.3 Total Bilirubin AST ALT Alkaline Phosphatase B-Natriuretic Peptide Total Protein Albumin Procalcitonin 0.16 Pericard WBC Pericard RBC Pericard Neutrophils Pericard Lymphocytes Pericard Monocytes Pericard Other Cells Imaging Radiologist's impression: Impressions Chest X-Ray 12/22/23 15:20 IMPRESSION: 1. Worsening pulmonary aeration with increased bibasilar airspace opacities and increased small bilateral pleural effusions. 2. Stable enlargement of the cardiomediastinal silhouette. Progress Note: A&P Assessment and plan (1) Pericardial tamponade: Status: Acute Assessment and Plan: Patient came in with pericardial tamponade with low blood pressure. Continues to have borderline low blood pressure at this time status post removal of 600 cc of fluid. Status post pericardial drain. Repeat echo is to be reviewed. Pericardial drain can most likely be removed. Follow-up cytology as well as chemistry. (2) Acute CHF: Status: Acute Assessment and Plan: Congestive heart failure with systolic dysfunction and now new onset atrial fibrillation. Patient still appears to be short of breath and fluid overloaded. Continue with gentle diuresis. Lasix 20 mg IV b.i.d.. Strict intake and output chart needs to be pursued. Would start low-dose metoprolol therapy for rate control. Also add digoxin. Better rate control is required. Once and if blood pressure improves will resume other neurohormonal modulation such as valsartan. (3) Atrial fibrillation: Status: Acute Assessment and Plan: Atrial fibrillation new onset in the patient with known systolic dysfunction. High risk for the same. Most likely due to surgery as well as pericardial irritation. Rate control with digoxin load and p.o. metoprolol. For now hold off on oral anticoagulation given his recent surgery. Once the drain is out and by tomorrow remains in AFib may need oral anticoagulation therapy. Will follow with you Time Spent With Patient Time: Total time managing care of this patient today ____ minutes. Progress Note: Quality Stroke Does the patient have a stroke diagnosis?: No Procedures Date of Service Date of Service: 12/23/23
--- NOTE | 2023-12-23 13:28 | MHC.CM.PN ---
This CM attempted to meet with pt while in ICU, pt sleeping and unable to engage. Pt was moved to [facility]. This CM called pts daughter/HCP Dilcia. Per Dilcia she is experiencing a migraine and requested that this CM try to call her later today or tomorrow instead. CM will attempt to obtain information and complete CM intake assessment at a later time.
[2023-12-23] MEDS: Metoprolol Tartrate 12.5 MG HALFTAB PO ×2 (13:36→20:57)
[2023-12-23] MEDS: Digoxin 0.5 MG/2 ML AMPUL 0.125 MG IVPUSH ×2 (13:36→20:50)
--- NOTE | 2023-12-23 14:23 | HO.POSTANES ---
Post Anesthesia Evaluation Post Anesthesia Evaluation Date of Service: 12/23/23 Vital Signs: Vital Signs Temp Pulse Resp BP Pulse Ox O2 Del Method O2 Flow Rate 12/23/23 13:42 129 H 130/63 12/23/23 11:00 97.0 F 101 H 20 109/73 94 Nasal Cannula 5 12/23/23 10:15 125 H 125/61 12/23/23 09:23 153/71 H 12/23/23 08:00 74 19 144/69 H 94 Nasal Cannula 4 12/23/23 07:38 20 12/23/23 07:00 69 18 133/64 93 Nasal Cannula 4 12/23/23 06:00 74 19 140/71 H 92 Nasal Cannula 4 12/23/23 05:00 73 18 142/71 H 93 Nasal Cannula 4 12/23/23 04:00 97.8 F 74 18 136/72 93 Nasal Cannula 4 12/23/23 03:00 77 19 133/71 94 Nasal Cannula 4
--- NOTE | 2023-12-23 16:06 | PM.PNTS ---
Subjective Subjective Date of Service: 12/23/23 Interval history: Afib, otherwise uneventful evening. mild incis discomfort. Scant output Physical Exam Vital Signs: Vital Signs: Last Vital Signs Temp 98.3 F 12/23/23 15:28 Pulse 62 12/23/23 15:28 Resp 20 12/23/23 15:28 BP 102/57 L 12/23/23 15:28 Pulse Ox 97 12/23/23 15:28 O2 Del Method Room Air 12/23/23 15:28 O2 Flow Rate 5 12/23/23 11:00 FiO2 30 12/22/23 21:00 Oxygen Flow Rate 4 12/22/23 18:00 BMI result Body Mass Index 30.7 Chest: Other: Iccis dsg. c/d/i. Drain d/c'ed.( these on occasion, can be dysrhythmogenic) Dsg applied Procedures Date of Service Date of Service: 12/23/23 Progress Note: A&P Assessment and plan (1) Pericardial tamponade: Status: Acute Plan Doing well. Encourage IS, OOB,diet as yanira. Time Spent With Patient Time: Total time managing care of this patient today ____ minutes. Quality Stroke Does the patient have a stroke diagnosis?: No VTE Prior VTE?: No VTE Risk Level:: Medical - moderate - high VTE Device Contraindication: N/A - Device Ordered VTE Drug Contraindication: Treatment Not Tolerated
[2023-12-23] MEDS: Furosemide 20 MG/2 ML VIAL IVPUSH (17:34)
[2023-12-24] VITALS (7 sets, daily range): BP systolic 118–164; BP diastolic 58–80; PULSE 68–98; RESP 18–22; TEMP 36.2–37.2; O2SAT 95–99; BMI 29.5
[2023-12-24] MEDS: cefEPime HCl 2 GM in 0.9 % Sodium Chloride 50 ML IV ×3 (01:38→16:47)
[2023-12-24] MEDS: Digoxin 0.5 MG/2 ML AMPUL 0.125 MG IVPUSH (02:42)
[2023-12-24] MEDS: Metoprolol Tartrate 12.5 MG HALFTAB PO ×4 (02:42→21:26)
[2023-12-24 07:15] LABS: Basophils Percent Auto 0.3 % (0-2); Eosinophils Absolute Auto 0.1 X10*3/uL (0.0-0.4); Eosinophils Percent Auto 0.4 % (0-4); Hematocrit 38.6 % (42.0-52.0); Hemoglobin 12.8 g/dl (14.0-18.0); Imm Gran Abs Auto 0.13 X10*3/uL (0.00-0.03); Imm Gran Pct Auto 0.9 % (0.0-0.4); Lymphocytes Absolute Auto 0.6 X10*3/uL (1.2-4.9); MANUAL DIFF FLAG SCAN; Mean Corpuscular HGB Conc 33.2 g/dl (31.0-36.0); Mean Corpuscular Hemoglobin 31.1 pg (27.0-33.0); Mean Corpuscular Volume 93.7 fL (80.0-98.0); Mean Platelet Volume 11.1 fL (9.4-12.4); Monocytes Absolute Auto 1.7 X10*3/uL (0.1-1.2); Monocytes Percent Auto 11.5 % (2-11); Neutrophils Percent Auto 82.9 % (45-73); Platelet Count 315 X10*3/uL (160-400); Red Blood Count 4.12 X10*6/uL (4.60-5.80); Red Cell Distribution Width 14.2 % (11.0-16.0); SCAN SMEAR FLAG 1; White Blood Count 14.5 X10*3/uL (4.8-10.8)
[2023-12-24 07:31] LABS: Anion Gap 12 (12-20); Blood Urea Nitrogen 34 mg/dL (9-16); Calcium 8.3 mg/dL (8.4-10.2); Carbon Dioxide 29 mmol/L (22-29); Chloride 105 mmol/L (96-108); Creatinine Clr Calc Pharmacy 56.3; Estimated Glomerular Filt Rate > 60; Glucose Random 115 mg/dL (60-115); Magnesium 2.3 mg/dL (1.6-2.6); Phosphorus 3.2 mg/dL (2.7-4.5); Potassium 3.5 mmol/L (3.3-5.1); Sodium 142 mmol/L (135-145)
[2023-12-24 07:35] LABS: SLIDE REVIEW VERIFIED
[2023-12-24] MEDS: allopurinoL 300 MG TABLET PO (07:44)
[2023-12-24] MEDS: Furosemide 20 MG/2 ML VIAL IVPUSH ×2 (07:44→17:45)
[2023-12-24] MEDS: Sertraline HCL 50 MG TABLET 150 MG PO (07:44)
[2023-12-24] MEDS: 0.9 % Sodium Chloride Flush 3 ML SYRINGE IVFLUSH ×3 (07:50→21:28)
--- NOTE | 2023-12-24 10:12 | PM.PNGS ---
Subjective Subjective Date of Service: 12/24/23 Interval history: Denies pain Says se still feels some shortness of breath Physical Exam Vital Signs: Vital Signs: Last Vital Signs Temp 97.8 F 12/24/23 07:31 Pulse 69 12/24/23 07:31 Resp 22 H 12/24/23 07:31 BP 164/80 H 12/24/23 07:31 Pulse Ox 97 12/24/23 07:31 O2 Del Method Nasal Cannula 12/24/23 07:31 O2 Flow Rate 2 12/24/23 07:31 FiO2 30 12/22/23 21:00 Oxygen Flow Rate 4 12/22/23 18:00 BMI result Body Mass Index 29.5 Const: Other: Some shortness of breath General: no acute distress Resp: Other: Some shortness of breath Cardio: Other: Dressings on pericardial window site is dry Rate: regular rate GI: Palpation (GI): Soft to palpation Objective Data Active Medications Allopurinol (Allopurinol 300 Mg Tablet) 300 mg PO DAILY [facility] Last Admin: 12/24/23 07:44 Dose: 300 mg Documented By: THUY Furosemide (Furosemide 20 Mg/2 Ml Vial) 20 mg IVPUSH BID@0900,1800 [facility]; Protocol Last Admin: 12/24/23 07:44 Dose: 20 mg Documented By: THUY Cefepime HCl 2 gm/ Sodium (Chloride) 50 mls @ 100 mls/hr IV Q8H [facility] Stop: 12/26/23 08:59 Last Infusion: 12/24/23 08:42 Dose: Infused Documented By: THUY Metoprolol Tartrate (Metoprolol Tartrate 12.5 Mg Halftab) 12.5 mg PO Q6H [facility]; Protocol Last Admin: 12/24/23 07:44 Dose: 12.5 mg Documented By: THUY Omeprazole (Omeprazole/Na Bicarb Oral Susp 20 Mg/10 Ml Ud Cup) 20 mg PO BID@0630,1630 PRN PRN Reason: Heartburn Last Admin: 12/23/23 09:46 Dose: 20 mg Documented By: ANTIONE Sertraline HCl (Sertraline Hcl 50 Mg Tablet) 150 mg PO DAILY [facility] Last Admin: 12/24/23 07:44 Dose: 150 mg Documented By: THUY Sodium Chloride (0.9 % Sodium Chloride Flush 3 Ml Syringe) 3 ml IVFLUSH QSHIFT [facility] Last Admin: 12/24/23 07:50 Dose: 3 ml Documented By: THUY Labs 12/24/23 06:27 12/24/23 06:27 Labs: Laboratory Results - last 24 hr 12/24/23 06:27 MCV 93.7 MCH 31.1 MCHC 33.2 RDW 14.2 Plt Count 315 MPV 11.1 Immature Gran % (Auto) 0.9 H Neut % (Auto) 82.9 H Lymph % (Auto) 4.0 L [place] % (Auto) 11.5 H Eos % (Auto) 0.4 Baso % (Auto) 0.3 Lymph # (Auto) 0.6 L [place] # (Auto) 1.7 H Eos # (Auto) 0.1 Baso # (Auto) 0.0 Abs Immat Gran (auto) 0.13 H Absolute Neuts (auto) 12.0 H Absolute Nucleated RBC 0.000 Nucleated RBC % (auto) 0.0 Smear Tech's Comments VERIFIED Anion Gap 12 Estim Creat Clear Calc 56.3 Estimated GFR > 60 Random Glucose 115 Calcium 8.3 L Phosphorus 3.2 Magnesium 2.3 Microbiology Microbiology Results: Microbiology 12/22/23 04:03 Blood Culture - Preliminary Blood - Venous No growth after 48 hours. 12/22/23 04:03 Blood Culture - Preliminary Blood - Venous No growth after 48 hours. 12/22/23 13:43 Gram Stain - Final Pericardial Fluid Routine Culture - Preliminary No growth to date. Anaerobic Culture - Preliminary No growth to date. Procedures Date of Service Date of Service: 12/24/23 Progress Note: A&P Assessment and plan (1) Pericardial tamponade: Status: Acute Assessment and Plan: Status post pericardial window Pericardiostomy tube removed yesterday He has some shortness of breath but this is likely baseline from CHF Does not seem to have dysrhythmia at this time Labs okay Care as per cardiology and hospitalist service Time Spent With Patient Time: Total time managing care of this patient today ____ minutes. Quality Stroke Does the patient have a stroke diagnosis?: No VTE Prior VTE?: No VTE Risk Level:: Medical - moderate - high VTE Device Contraindication: N/A - Device Ordered VTE Drug Contraindication: Treatment Not Tolerated
--- NOTE | 2023-12-24 11:47 | P.PNCA_ITS ---
Subjective Subjective Date of Service: 12/24/23 Principal diagnosis: CHF, pericardial tamponade, atrial flutter. Interval history: Patient control rate with atrial flutter. Pressure is elevated. Still remain short of breath although he denies shortness of breath. Leg edema is improved significantly. Still requiring oxygen. Review of Systems Constitutional: Reports no additional constitutional complaints Cardiovascular: Denies lightheadedness, Denies Loss of Consciousness, Denies palpitations and Reports dyspnea Respiratory: Reports dyspnea Endocrine: Denies palpitations Physical Exam Vital Signs: Last Vital Signs Temp 98.9 F 12/24/23 11:27 Pulse 72 12/24/23 11:27 Resp 22 H 12/24/23 11:27 BP 138/73 12/24/23 11:27 Pulse Ox 96 12/24/23 11:27 O2 Del Method Nasal Cannula 12/24/23 11:27 O2 Flow Rate 4 12/24/23 11:27 FiO2 30 12/22/23 21:00 Oxygen Flow Rate 4 12/22/23 18:00 BMI result Body Mass Index 29.5 Const General: cooperative and in distress respiratory Nutritional Appearance: overweight Neck Neck: Yes trachea midline, Yes supple and Yes JVD Resp Effort & Inspection: decreased respiratory effort Auscultation: wheezes and diminished lung sounds Cardio Rate: tachycardic Rhythm: abnormal rhythm irregularly irregular Heart sounds: S1 normal heart sound present, S2 normal heart sound present, no click and no gallops GI Auscultation: normal bowel sounds Neuro General: no focal motor deficits Extrem General: No clubbing, No cyanosis and Yes edema Objective Labs and Meds 12/24/23 06:27 12/24/23 06:27 Lab results: Laboratory Results - last 24 hr 12/24/23 06:27 WBC 14.5 H RBC 4.12 L Hgb 12.8 L Hct 38.6 L MCV 93.7 MCH 31.1 MCHC 33.2 RDW 14.2 Plt Count 315 MPV 11.1 Immature Gran % (Auto) 0.9 H Neut % (Auto) 82.9 H Lymph % (Auto) 4.0 L [place] % (Auto) 11.5 H Eos % (Auto) 0.4 Baso % (Auto) 0.3 Lymph # (Auto) 0.6 L [place] # (Auto) 1.7 H Eos # (Auto) 0.1 Baso # (Auto) 0.0 Abs Immat Gran (auto) 0.13 H Absolute Neuts (auto) 12.0 H Absolute Nucleated RBC 0.000 Nucleated RBC % (auto) 0.0 Smear Tech's Comments VERIFIED Sodium 142 Potassium 3.5 Chloride 105 Carbon Dioxide 29 Anion Gap 12 BUN 34 H Creatinine 1.00 Estim Creat Clear Calc 56.3 Estimated GFR > 60 Random Glucose 115 Calcium 8.3 L Phosphorus 3.2 Magnesium 2.3 Progress Note: A&P Assessment and plan (1) Pericardial tamponade: Status: Acute Assessment and Plan: Pericardial tamponade on presentation status post drain and pericardial centesis his window. Repeat echocardiogram shows small pericardial effusion with possible constrictive physiology although this is unclear. Follow-up echocardiogram limited in 1 week's time can be done with his primary nurse emergency room. (2) Atrial fibrillation: Status: Acute Assessment and Plan: Atrial fibrillation, new onset. If cleared by surgery she was started on oral anticoagulation therapy, Eliquis 5 mg b.i.d.. Continue current rate control strategy. Would continue metoprolol and low-dose stage 0.125 mg b.i.d. for rate control. (3) Acute CHF: Status: Acute Assessment and Plan: Continues to remain short of breath although clinically he said he is not short of breath. Does not appear with significantly fluid overloaded. Continue IV diuresis for 1 more day. Follow-up BNP tomorrow. Agree with chest x-ray to evaluate for pleural effusion assessment and atelectasis assessment. Incentive spirometry. Out of bed to chair. Please add low-dose valsartan 20 mg b.i.d. to his regimen for neurohormonal modulation along with metoprolol therapy. Will follow with you Time Spent With Patient Time: Total time managing care of this patient today ____ minutes. Progress Note: Quality Stroke Does the patient have a stroke diagnosis?: No Procedures Date of Service Date of Service: 12/24/23
--- NOTE | 2023-12-24 14:28 | HO.PM.IMPN ---
Subjective Subjective Date of Service: 12/24/23 Interval History: pericardial drain out yesterday appears dyspneic though denies it leg swelling resolved no chest pain Review of Systems Review of Systems: Yes all other systems are reviewed and are negative Physical Exam Vital Signs: Vital Signs: Last Vital Signs Temp 98.9 F 12/24/23 11:27 Pulse 72 12/24/23 11:27 Resp 22 H 12/24/23 11:27 BP 138/73 12/24/23 11:27 Pulse Ox 96 12/24/23 11:27 O2 Del Method Nasal Cannula 12/24/23 11:27 O2 Flow Rate 4 12/24/23 11:27 FiO2 30 12/22/23 21:00 Oxygen Flow Rate 4 12/22/23 18:00 BMI result Body Mass Index 29.5 Gen: short of breath HEENT: sclera anicteric, moist mucus membranes Neck: supple Lungs: diminished Heart: rate-controlled atrial flutter, no murmurs, dry dressing at pericardial drain site Abd: soft, non-tender, non-distended Ext: trace leg edema Skin: warm/well-perfused Neuro: alert and oriented x3, no focal findings Psych: appropriate affect Objective Data Active Medications Allopurinol (Allopurinol 300 Mg Tablet) 300 mg PO DAILY [facility] Last Admin: 12/24/23 07:44 Dose: 300 mg Documented By: THUY Apixaban (Apixaban 5 Mg Tablet) 5 mg PO BID [facility] Digoxin (Digoxin 0.125 Mg Tablet) 0.125 mg PO DAILY [facility] Furosemide (Furosemide 20 Mg/2 Ml Vial) 20 mg IVPUSH BID@0900,1800 [facility]; Protocol Last Admin: 12/24/23 07:44 Dose: 20 mg Documented By: THUY Cefepime HCl 2 gm/ Sodium (Chloride) 50 mls @ 100 mls/hr IV Q8H [facility] Stop: 12/26/23 08:59 Last Infusion: 12/24/23 08:42 Dose: Infused Documented By: THUY Metoprolol Tartrate (Metoprolol Tartrate 12.5 Mg Halftab) 12.5 mg PO Q6H [facility]; Protocol Last Admin: 12/24/23 07:44 Dose: 12.5 mg Documented By: THUY Omeprazole (Omeprazole/Na Bicarb Oral Susp 20 Mg/10 Ml Ud Cup) 20 mg PO BID@0630,1630 PRN PRN Reason: Heartburn Last Admin: 12/23/23 09:46 Dose: 20 mg Documented By: ANTIONE Sertraline HCl (Sertraline Hcl 50 Mg Tablet) 150 mg PO DAILY [facility] Last Admin: 12/24/23 07:44 Dose: 150 mg Documented By: THUY Sodium Chloride (0.9 % Sodium Chloride Flush 3 Ml Syringe) 3 ml IVFLUSH QSHIFT [facility] Last Admin: 12/24/23 07:50 Dose: 3 ml Documented By: THUY Valsartan (Valsartan 40 Mg Tablet) 20 mg PO BID [facility]; Protocol Labs 12/24/23 06:27 12/24/23 06:27 Labs: Laboratory Results - last 24 hr 12/24/23 06:27 MCV 93.7 MCH 31.1 MCHC 33.2 RDW 14.2 Plt Count 315 MPV 11.1 Immature Gran % (Auto) 0.9 H Neut % (Auto) 82.9 H Lymph % (Auto) 4.0 L [place] % (Auto) 11.5 H Eos % (Auto) 0.4 Baso % (Auto) 0.3 Lymph # (Auto) 0.6 L [place] # (Auto) 1.7 H Eos # (Auto) 0.1 Baso # (Auto) 0.0 Abs Immat Gran (auto) 0.13 H Absolute Neuts (auto) 12.0 H Absolute Nucleated RBC 0.000 Nucleated RBC % (auto) 0.0 Smear Tech's Comments VERIFIED Anion Gap 12 Estim Creat Clear Calc 56.3 Estimated GFR > 60 Random Glucose 115 Calcium 8.3 L Phosphorus 3.2 Magnesium 2.3 Microbiology Microbiology Results: Microbiology 12/22/23 13:43 Gram Stain - Final Pericardial Fluid Routine Culture - Final No growth after 2 days Anaerobic Culture - Preliminary No growth to date. 12/22/23 04:03 Blood Culture - Preliminary Blood - Venous No growth after 48 hours. 12/22/23 04:03 Blood Culture - Preliminary Blood - Venous No growth after 48 hours. Assessment and Plan (1) Pericardial effusion: Status: Acute Plan d3 83yo M with HFrEF, MCI, mood disorder, BPH, gout presenting with 1 mo dizziness + hypotension, found to have pericardial effusion with early tamponade pericardial effusion with early tamponade - s/p pericardial window 12/20 and observed in ICU overnight; drain pulled 12/22; bloody fluid with no evidence of infection + cytology pending acute-chronic HFrEF - continue IV furosemide 1 more day; monitor lytes + BNP + I/O; Cardiology following; start valsartan; continue metoprolol tartrate atrial flutter with RVR - now rate-controlled; continue metoprolol tartrate + start maintenance digoxin [loaded 12/22]; OK to start Eliquis per Thoracic Surgery pneumonia - on cefepime started 12/22; repeat CXR now; BCx neg; PCT low AHRF - wean O2 as tolerated gout - allopurinol HTN - valsartan + metoprolol as above mood disorder - sertraline VTE ppx - start apixaban dispo - PT eval In my clinical judgment, the patient requires continued inpatient hospitalization for the following reasons: hypoxia, IV diuresis + ABX Total time managing care of this patient today: 50 minutes. Quality Stroke Does the patient have a stroke diagnosis?: No VTE Prior VTE?: No VTE Risk Level:: Medical - moderate - high VTE Device Contraindication: N/A - Device Ordered VTE Drug Contraindication: Treatment Not Tolerated
[2023-12-24] MEDS: Digoxin 0.125 MG TABLET PO (15:22)
[2023-12-24] MEDS: Valsartan 40 MG TABLET 20 MG PO ×2 (15:22→21:26)
[2023-12-24] MEDS: Apixaban 5 MG TABLET PO (21:27)
[2023-12-25] VITALS (8 sets, daily range): BP systolic 120–178; BP diastolic 20–97; PULSE 64–77; RESP 16–20; TEMP 36.4–37.1; O2SAT 92–95; BMI 30.6
[2023-12-25] MEDS: cefEPime HCl 2 GM in 0.9 % Sodium Chloride 50 ML IV ×3 (00:02→16:54)
[2023-12-25] MEDS: Metoprolol Tartrate 12.5 MG HALFTAB PO (03:28)
--- NOTE | 2023-12-25 06:54 | P.PNGS_ITS ---
Subjective Subjective Date of Service: 12/25/23 <[facility] Last Filed: 12/25/23 07:06> 12/27/23 <Phyllis Bernabe PA-C - Last Filed: 12/27/23 11:51> Interval history: Patient reports he is doing well. Feeling less short of breath this morning. Bandage is clean, dry and intact. Drain removed on 12/23/23. Vitals have remained stable. Labs pending. Urinary catheter in place. Having BMs. Getting out of bed regularly. <[facility] Last Filed: 12/25/23 07:06> Physical Exam 2 Vital Signs: Vital Signs: Last Vital Signs Temp 97.5 F 12/25/23 03:13 Pulse 72 12/25/23 03:13 Resp 18 12/25/23 03:13 BP 154/78 H 12/25/23 02:43 Pulse Ox 93 12/25/23 03:13 O2 Del Method Nasal Cannula 12/25/23 03:13 O2 Flow Rate 2 12/25/23 03:13 FiO2 30 12/22/23 21:00 Oxygen Flow Rate 4 12/22/23 18:00 BMI result Body Mass Index 30.6 <[facility] Filed: 12/25/23 07:06> Const: General: cooperative and comfortable <[facility] Filed: 12/25/23 07:06> Orientation/consciousness: patient oriented x3 <[facility] Filed: 12/25/23 07:06> Chest: Other: subxiphoid bandage is clean, dry and intact. Appropriate tenderness with palpation around incision. <[facility] Last Filed: 12/25/23 07:06> Chest palpation & inspection: normal inspection of the chest and other < [facility] Last Filed: 12/25/23 07:06> Resp: Effort & Inspection: able to speak in complete sentences and other (appears mildly short of breath) <[facility] Filed: 12/25/23 07:06> Auscultation: diminished lung sounds <[facility] Filed: 12/25/23 07:06> Cardio: Rate: regular rate <[facility] Filed: 12/25/23 07:06> Rhythm: abnormal rhythm <[facility] Last Filed: 12/25/23 07:06> GI: Inspection: Yes normal to inspection <[facility] Last Filed: 12/25/23 07:06> Palpation (GI): Soft to palpation <[facility] Last Filed: 12/25/23 07:06> Neuro: General: patient oriented x3 <[facility] Filed: 12/25/23 07:06> Objective Data Active Medications Allopurinol (Allopurinol 300 Mg Tablet) 300 mg PO DAILY [facility] Last Admin: 12/24/23 07:44 Dose: 300 mg Documented By: THUY Apixaban (Apixaban 5 Mg Tablet) 5 mg PO BID [facility] Last Admin: 12/24/23 21:27 Dose: 5 mg Documented By: MELVIN Digoxin (Digoxin 0.125 Mg Tablet) 0.125 mg PO DAILY [facility] Last Admin: 12/24/23 15:22 Dose: 0.125 mg Documented By: THUY Furosemide (Furosemide 20 Mg/2 Ml Vial) 20 mg IVPUSH BID@0900,1800 [facility]; Protocol Last Admin: 12/24/23 17:45 Dose: 20 mg Documented By: THUY Cefepime HCl 2 gm/ Sodium (Chloride) 50 mls @ 100 mls/hr IV Q8H [facility] Stop: 12/26/23 08:59 Last Infusion: 12/25/23 00:35 Dose: Infused Documented By: MELVIN Metoprolol Tartrate (Metoprolol Tartrate 12.5 Mg Halftab) 12.5 mg PO Q6H [facility]; Protocol Last Admin: 12/25/23 03:28 Dose: 12.5 mg Documented By: MELVIN Omeprazole (Omeprazole/Na Bicarb Oral Susp 20 Mg/10 Ml Ud Cup) 20 mg PO BID@0630,1630 PRN PRN Reason: Heartburn Last Admin: 12/23/23 09:46 Dose: 20 mg Documented By: ANTIONE Sertraline HCl (Sertraline Hcl 50 Mg Tablet) 150 mg PO DAILY [facility] Last Admin: 12/24/23 07:44 Dose: 150 mg Documented By: THUY Sodium Chloride (0.9 % Sodium Chloride Flush 3 Ml Syringe) 3 ml IVFLUSH QSHIFT [facility] Last Admin: 12/24/23 21:28 Dose: 3 ml Documented By: MELVIN Valsartan (Valsartan 40 Mg Tablet) 20 mg PO BID [facility]; Protocol Last Admin: 12/24/23 21:26 Dose: 20 mg Documented By: MELVIN <[facility] - Last Filed: 12/25/23 07:06> Labs CBC & Chem 7: 12/27/23 06:25 12/27/23 06:25 <[facility] Last Filed: 12/25/23 07:06> Labs: Laboratory Results - last 24 hr 12/24/23 06:27 MCV 93.7 MCH 31.1 MCHC 33.2 RDW 14.2 Plt Count 315 MPV 11.1 Immature Gran % (Auto) 0.9 H Neut % (Auto) 82.9 H Lymph % (Auto) 4.0 L [place] % (Auto) 11.5 H Eos % (Auto) 0.4 Baso % (Auto) 0.3 Lymph # (Auto) 0.6 L [place] # (Auto) 1.7 H Eos # (Auto) 0.1 Baso # (Auto) 0.0 Abs Immat Gran (auto) 0.13 H Absolute Neuts (auto) 12.0 H Absolute Nucleated RBC 0.000 Nucleated RBC % (auto) 0.0 Smear Tech's Comments VERIFIED Anion Gap 12 Estim Creat Clear Calc 56.3 Estimated GFR > 60 Random Glucose 115 Calcium 8.3 L Phosphorus 3.2 Magnesium 2.3 <[facility] Last Filed: 12/25/23 07:06> Microbiology Microbiology Results: Microbiology 12/22/23 13:43 Gram Stain - Final Pericardial Fluid Routine Culture - Final No growth after 2 days Anaerobic Culture - Preliminary No growth to date. 12/22/23 04:03 Blood Culture - Preliminary Blood - Venous No growth after 48 hours. 12/22/23 04:03 Blood Culture - Preliminary Blood - Venous No growth after 48 hours. <[facility] Last Filed: 12/25/23 07:06> Procedures Date of Service Date of Service: 12/25/23 <[facility] Last Filed: 12/25/23 07:06> 12/27/23 <Phyllis Bernabe PA-C - Last Filed: 12/27/23 11:51> Progress Note: A&P Assessment and plan (1) Pericardial tamponade: Status: Acute <[facility] Filed: 12/25/23 07:06> Assessment and Plan: Patient is s/p pericardial window and drainage due to large pericardial effusion causing cardiac tamponade Still appears mildly short of breath but this is not unexpected given concurrent CHF Drain removed on 12/23/23. Bandage is clean, dry and intact. Pain well managed. Continue care per hospitalist and cardiology <[facility] Last Filed: 12/25/23 07:06> Time Spent With Patient Time: Total time managing care of this patient today ____ minutes. <[facility] Filed: 12/25/23 07:06> Quality Stroke Does the patient have a stroke diagnosis?: No <[facility] Filed: 12/25/23 07:06> VTE Prior VTE?: No <[facility] Filed: 12/25/23 07:06> VTE Risk Level:: Medical - moderate - high <[facility] Filed: 12/25/23 07:06> VTE Device Contraindication: N/A - Device Ordered <[facility] Filed: 12/25/23 07:06> VTE Drug Contraindication: Treatment Not Tolerated <[facility] Filed: 12/25/23 07:06>
--- NOTE | 2023-12-25 06:54 | PM.PNGS ---
Subjective Subjective Date of Service: 12/25/23 <[facility] Last Filed: 12/25/23 07:06> 12/27/23 <Phyllis Bernabe PA-C - Last Filed: 12/27/23 11:51> Interval history: Patient reports he is doing well. Feeling less short of breath this morning. Bandage is clean, dry and intact. Drain removed on 12/23/23. Vitals have remained stable. Labs pending. Urinary catheter in place. Having BMs. Getting out of bed regularly. <[facility] Last Filed: 12/25/23 07:06> Physical Exam Vital Signs: Vital Signs: Last Vital Signs Temp 97.5 F 12/25/23 03:13 Pulse 72 12/25/23 03:13 Resp 18 12/25/23 03:13 BP 154/78 H 12/25/23 02:43 Pulse Ox 93 12/25/23 03:13 O2 Del Method Nasal Cannula 12/25/23 03:13 O2 Flow Rate 2 12/25/23 03:13 FiO2 30 12/22/23 21:00 Oxygen Flow Rate 4 12/22/23 18:00 BMI result Body Mass Index 30.6 <[facility] Filed: 12/25/23 07:06> Const: General: cooperative and comfortable <[facility] Filed: 12/25/23 07:06> Orientation/consciousness: patient oriented x3 <[facility] Filed: 12/25/23 07:06> Chest: Other: subxiphoid bandage is clean, dry and intact. Appropriate tenderness with palpation around incision. <[facility] Filed: 12/25/23 07:06> Chest palpation & inspection: normal inspection of the chest and other <[facility] Filed: 12/25/23 07:06> Resp: Effort & Inspection: able to speak in complete sentences and other (appears mildly short of breath) <[facility] Filed: 12/25/23 07:06> Auscultation: diminished lung sounds <[facility] Filed: 12/25/23 07:06> Cardio: Rate: regular rate <[facility] Filed: 12/25/23 07:06> Rhythm: abnormal rhythm <[facility] Filed: 12/25/23 07:06> GI: Inspection: Yes normal to inspection <[facility] Last Filed: 12/25/23 07:06> Palpation (GI): Soft to palpation <[facility] Last Filed: 12/25/23 07:06> Neuro: General: patient oriented x3 <[facility] Filed: 12/25/23 07:06> Objective Data Active Medications Allopurinol (Allopurinol 300 Mg Tablet) 300 mg PO DAILY [facility] Last Admin: 12/24/23 07:44 Dose: 300 mg Documented By: THUY Apixaban (Apixaban 5 Mg Tablet) 5 mg PO BID [facility] Last Admin: 12/24/23 21:27 Dose: 5 mg Documented By: MELVIN Digoxin (Digoxin 0.125 Mg Tablet) 0.125 mg PO DAILY [facility] Last Admin: 12/24/23 15:22 Dose: 0.125 mg Documented By: THUY Furosemide (Furosemide 20 Mg/2 Ml Vial) 20 mg IVPUSH BID@0900,1800 [facility]; Protocol Last Admin: 12/24/23 17:45 Dose: 20 mg Documented By: THUY Cefepime HCl 2 gm/ Sodium (Chloride) 50 mls @ 100 mls/hr IV Q8H [facility] Stop: 12/26/23 08:59 Last Infusion: 12/25/23 00:35 Dose: Infused Documented By: MELVIN Metoprolol Tartrate (Metoprolol Tartrate 12.5 Mg Halftab) 12.5 mg PO Q6H [facility]; Protocol Last Admin: 12/25/23 03:28 Dose: 12.5 mg Documented By: MELVIN Omeprazole (Omeprazole/Na Bicarb Oral Susp 20 Mg/10 Ml Ud Cup) 20 mg PO BID@0630,1630 PRN PRN Reason: Heartburn Last Admin: 12/23/23 09:46 Dose: 20 mg Documented By: ANTIONE Sertraline HCl (Sertraline Hcl 50 Mg Tablet) 150 mg PO DAILY [facility] Last Admin: 12/24/23 07:44 Dose: 150 mg Documented By: THUY Sodium Chloride (0.9 % Sodium Chloride Flush 3 Ml Syringe) 3 ml IVFLUSH QSHIFT [facility] Last Admin: 12/24/23 21:28 Dose: 3 ml Documented By: MELVIN Valsartan (Valsartan 40 Mg Tablet) 20 mg PO BID [facility]; Protocol Last Admin: 12/24/23 21:26 Dose: 20 mg Documented By: MELVIN <[facility] - Last Filed: 12/25/23 07:06> Labs CBC & Chem 7: 12/27/23 06:25 12/27/23 06:25 <[facility] Last Filed: 12/25/23 07:06> Labs: Laboratory Results - last 24 hr 12/24/23 06:27 MCV 93.7 MCH 31.1 MCHC 33.2 RDW 14.2 Plt Count 315 MPV 11.1 Immature Gran % (Auto) 0.9 H Neut % (Auto) 82.9 H Lymph % (Auto) 4.0 L [place] % (Auto) 11.5 H Eos % (Auto) 0.4 Baso % (Auto) 0.3 Lymph # (Auto) 0.6 L [place] # (Auto) 1.7 H Eos # (Auto) 0.1 Baso # (Auto) 0.0 Abs Immat Gran (auto) 0.13 H Absolute Neuts (auto) 12.0 H Absolute Nucleated RBC 0.000 Nucleated RBC % (auto) 0.0 Smear Tech's Comments VERIFIED Anion Gap 12 Estim Creat Clear Calc 56.3 Estimated GFR > 60 Random Glucose 115 Calcium 8.3 L Phosphorus 3.2 Magnesium 2.3 <[facility] Last Filed: 12/25/23 07:06> Microbiology Microbiology Results: Microbiology 12/22/23 13:43 Gram Stain - Final Pericardial Fluid Routine Culture - Final No growth after 2 days Anaerobic Culture - Preliminary No growth to date. 12/22/23 04:03 Blood Culture - Preliminary Blood - Venous No growth after 48 hours. 12/22/23 04:03 Blood Culture - Preliminary Blood - Venous No growth after 48 hours. <[facility] - Last Filed: 12/25/23 07:06> Procedures Date of Service Date of Service: 12/25/23 <[facility] - Last Filed: 12/25/23 07:06> 12/27/23 <Phyllis Bernabe PA-C - Last Filed: 12/27/23 11:51> Progress Note: A&P Assessment and plan (1) Pericardial tamponade: Status: Acute <[facility] Filed: 12/25/23 07:06> Assessment and Plan: Patient is s/p pericardial window and drainage due to large pericardial effusion causing cardiac tamponade Still appears mildly short of breath but this is not unexpected given concurrent CHF Drain removed on 12/23/23. Bandage is clean, dry and intact. Pain well managed. Continue care per hospitalist and cardiology <[facility] Last Filed: 12/25/23 07:06> Time Spent With Patient Time: Total time managing care of this patient today ____ minutes. <[facility] Filed: 12/25/23 07:06> Quality Stroke Does the patient have a stroke diagnosis?: No <[facility] Filed: 12/25/23 07:06> VTE Prior VTE?: No <[facility] Filed: 12/25/23 07:06> VTE Risk Level:: Medical - moderate - high <[facility] Filed: 12/25/23 07:06> VTE Device Contraindication: N/A - Device Ordered <[facility] Filed: 12/25/23 07:06> VTE Drug Contraindication: Treatment Not Tolerated <[facility] Filed: 12/25/23 07:06>
[2023-12-25 07:04] LABS: MANUAL DIFF FLAG NO
[2023-12-25 07:38] LABS: Basophils Percent Auto 0.3 % (0-2); Eosinophils Absolute Auto 0.1 X10*3/uL (0.0-0.4); Eosinophils Percent Auto 0.8 % (0-4); Hematocrit 37.7 % (42.0-52.0); Hemoglobin 12.4 g/dl (14.0-18.0); Imm Gran Abs Auto 0.08 X10*3/uL (0.00-0.03); Imm Gran Pct Auto 0.8 % (0.0-0.4); Lymphocytes Absolute Auto 0.4 X10*3/uL (1.2-4.9); Lymphocytes Percent Auto 4.1 % (20-40); Mean Corpuscular HGB Conc 32.9 g/dl (31.0-36.0); Mean Corpuscular Hemoglobin 30.4 pg (27.0-33.0); Mean Corpuscular Volume 92.4 fL (80.0-98.0); Mean Platelet Volume 10.9 fL (9.4-12.4); Monocytes Absolute Auto 1.1 X10*3/uL (0.1-1.2); Monocytes Percent Auto 10.8 % (2-11); Neutrophils Absolute Auto 8.7 x10*3/uL (2.0-8.3); Neutrophils Percent Auto 83.2 % (45-73); Platelet Count 303 X10*3/uL (160-400); Red Blood Count 4.08 X10*6/uL (4.60-5.80); White Blood Count 10.4 X10*3/uL (4.8-10.8)
[2023-12-25 07:55] LABS: B Type Natriuretic Peptide 1495 pg/mL (<100)
[2023-12-25 08:20] LABS: Anion Gap 10 (12-20); Blood Urea Nitrogen 33 mg/dL (9-16); Carbon Dioxide 31 mmol/L (22-29); Chloride 105 mmol/L (96-108); Creatinine Clr Calc Pharmacy 64.4; Estimated Glomerular Filt Rate > 60; Glucose Random 135 mg/dL (60-115); Magnesium 2.1 mg/dL (1.6-2.6); Phosphorus 2.7 mg/dL (2.7-4.5); Sodium 143 mmol/L (135-145)
[2023-12-25 08:31] LABS: Procalcitonin 0.09 ng/mL
[2023-12-25 08:36] LABS: Potassium 2.9 mmol/L (3.3-5.1)
[2023-12-25 08:49] LABS: Albumin Pericardial Fluid 3.4; Glucose Pericardial Fluid 104; Total Protein Pericardial Flui 4.6
[2023-12-25] MEDS: Valsartan 40 MG TABLET 20 MG PO (08:51)
[2023-12-25] MEDS: Potassium Chloride/H20 10 MEQ/100 ML PIGGYBACK 100 MEQ IV ×4 (08:51→13:56)
[2023-12-25] MEDS: Metoprolol Succinate ER 50 MG TAB.ER.24H PO (08:56)
[2023-12-25] MEDS: allopurinoL 300 MG TABLET PO (08:56)
[2023-12-25] MEDS: Potassium Chloride ER 20 MEQ TAB.ER.PRT 40 MEQ PO (08:56)
[2023-12-25] MEDS: Sertraline HCL 50 MG TABLET 150 MG PO (08:56)
[2023-12-25] MEDS: Digoxin 0.125 MG TABLET PO (08:57)
[2023-12-25] MEDS: 0.9 % Sodium Chloride Flush 3 ML SYRINGE IVFLUSH (08:57)
[2023-12-25] MEDS: Apixaban 5 MG TABLET PO ×2 (08:57→20:19)
[2023-12-25] MEDS: Furosemide 20 MG/2 ML VIAL IVPUSH (09:09)
--- NOTE | 2023-12-25 09:11 | MHC.CM.PN ---
IMM 11/24/23, ERM REVIEWED, PT ADMITTED PERICARDIAL EFFUSION, CM MET W/PT WHO REPORTS HE LIVES ALONE, HAS A CANE/WALKER HE DOES NOT USE, NO HOME SERVICES, GOAL FOR DC IS HOME, PT OPEN TO [facility] HOWEVER DOES NOT WANT STR. PCP/HCP ON FILE VERIFIED.
--- NOTE | 2023-12-25 09:51 | PM.PNCARD ---
Subjective Subjective Date of Service: 12/25/23 Principal diagnosis: CHF, pericardial tamponade, atrial flutter. Interval history: Not clear if patient is confused or not but questions and answers are somewhat inappropriate. He questioned me ' what am I'. When I explained to him that I am a doctor, his answer was ' good for you'. Then asked him if he was joking and he said he said yes. Overall, not clear what he is trying to say. Also not clear if he is just truly joking or confused. No overt cardiac symptoms. Review of Systems Review of Systems Yes all other systems are reviewed and are negative Constitutional: Reports as per HPI and Reports no additional constitutional complaints Eyes: Reports as per HPI and Denies no additional eye complaints Denies system reviewed and no additional complaints, except as documented and Reports as per HPI Cardiovascular: Reports as per HPI, Reports no additional cardiovascular complaints, Denies acrocyanosis, Denies cool extremities, Denies chest pain, Denies leg edema, Denies lightheadedness, Denies palpitations and Denies dyspnea Respiratory: Reports as per HPI, Denies no additional respiratory complaints and Denies dyspnea Gastrointestinal: Reports as per HPI and Denies no additional gastrointestinal complaints Genitourinary: Reports no additional male genitourinary complaints and Reports as per HPI Musculoskeletal: Reports no additional musculoskeletal complaints and Reports as per HPI Skin/Breast: Reports system reviewed and no additional complaints, except as docu Reports system reviewed and no additional complaints, except as documented and Reports as per HPI Psychiatric: Reports no additional psychiatric complaints and Reports as per HPI Endocrine: Reports no additional endocrine complaints, Reports as per HPI and Denies palpitations Hematologic/Lymphatic: Reports no additional hematologic/lymphatic complaints and Reports as per HPI Allergic/Immunologic: Reports no additional allergic/immunologic complaints and Reports as per HPI Physical Exam Vital Signs: Last Vital Signs Temp 97.6 F 12/25/23 08:00 Pulse 77 12/25/23 08:00 Resp 16 12/25/23 08:00 BP 178/97 H 12/25/23 08:51 Pulse Ox 94 12/25/23 08:00 O2 Del Method Room Air 12/25/23 08:00 O2 Flow Rate 2 12/25/23 03:13 FiO2 30 12/22/23 21:00 Oxygen Flow Rate 4 12/22/23 18:00 BMI result Body Mass Index 30.6 Const General: comfortable and no acute distress Orientation/consciousness: patient oriented x3 HEENT Other: Unremarkable Head: Yes normal to inspection Neck Neck: Yes normal visual inspection Chest Chest palpation & inspection: normal inspection of the chest Resp Auscultation: clear to auscultation bilaterally Cardio Palpation: normal PMI Heart sounds: S1 normal heart sound present, S2 normal heart sound present, no gallops, no murmurs and no rubs GI Palpation (GI): Soft to palpation Back/Spine/Pelvis Other: unremarkable Skin General skin exam: no rashes or lesions noted Neuro General: patient oriented x3 Extrem General: Yes normal to inspection Psych Mental Status: mental status grossly abnormal Objective Labs and Meds 12/25/23 06:36 12/25/23 06:03 Lab results: Laboratory Results - last 24 hr 12/22/23 12/25/23 12/25/23 14:58 06:03 06:36 WBC 10.4 RBC 4.08 L Hgb 12.4 L Hct 37.7 L MCV 92.4 MCH 30.4 MCHC 32.9 RDW 14.0 Plt Count 303 MPV 10.9 Immature Gran % (Auto) 0.8 H Neut % (Auto) 83.2 H Lymph % (Auto) 4.1 L [place] % (Auto) 10.8 Eos % (Auto) 0.8 Baso % (Auto) 0.3 Lymph # (Auto) 0.4 L [place] # (Auto) 1.1 Eos # (Auto) 0.1 Baso # (Auto) 0.0 Abs Immat Gran (auto) 0.08 H Absolute Neuts (auto) 8.7 H Absolute Nucleated RBC 0.000 Nucleated RBC % (auto) 0.0 Sodium 143 Potassium 2.9 L* Chloride 105 Carbon Dioxide 31 H Anion Gap 10 L BUN 33 H Creatinine 0.89 Estim Creat Clear Calc 64.4 Estimated GFR > 60 Random Glucose 135 H Calcium 8.0 L Phosphorus 2.7 Magnesium 2.1 B-Natriuretic Peptide 1495 H Procalcitonin 0.09 Pericard Total Protein 4.6 Pericardial Albumin 3.4 Pericardial Glucose 104 Progress Note: A&P Assessment and plan (1) Pericardial tamponade: Status: Acute Assessment and Plan: Status post drainage. Follow-up echocardiogram apparently showed a small pericardial effusion with possible constriction but not clear. (2) Atrial fibrillation: Status: Acute Assessment and Plan: When cleared by surgery, anticoagulation. Currently, atrial flutter with controlled rate on telemetry. (3) Acute CHF: Status: Acute Assessment and Plan: Diuretics, can switch to PO. Clinically, no evidence of any overt heart failure. Correct lytes. Time Spent With Patient Time: Total time managing care of this patient today ____ minutes. Progress Note: Quality Stroke Does the patient have a stroke diagnosis?: No Procedures Date of Service Date of Service: 12/25/23
--- NOTE | 2023-12-25 11:07 | P.PNIM_ITS ---
Subjective Subjective Date of Service: 12/25/23 Interval History: seems somewhat confused today denies dyspnea or leg edema no chest pain Review of Systems Review of Systems: Yes all other systems are reviewed and are negative Physical Exam 2 Vital Signs: Vital Signs: Last Vital Signs Temp 97.6 F 12/25/23 08:00 Pulse 77 12/25/23 08:00 Resp 16 12/25/23 08:00 BP 178/97 H 12/25/23 08:51 Pulse Ox 94 12/25/23 08:00 O2 Del Method Room Air 12/25/23 08:00 O2 Flow Rate 2 12/25/23 03:13 FiO2 30 12/22/23 21:00 Oxygen Flow Rate 4 12/22/23 18:00 BMI result Body Mass Index 30.6 Gen: NAD HEENT: sclera anicteric, moist mucus membranes Neck: supple Lungs: clear Heart: rate-controlled atrial flutter, no murmurs, dry dressing at pericardial drain site Abd: soft, non-tender, non-distended Ext: no leg edema Skin: warm/well-perfused Neuro: alert and oriented x3 but confused about circumstances of hospitalization, no focal motor deficits Psych: appropriate affect Objective Data Active Medications Allopurinol (Allopurinol 300 Mg Tablet) 300 mg PO DAILY [facility] Last Admin: 12/25/23 08:56 Dose: 300 mg Documented By: NAYANA Apixaban (Apixaban 5 Mg Tablet) 5 mg PO BID [facility] Last Admin: 12/25/23 08:57 Dose: 5 mg Documented By: NAYANA Digoxin (Digoxin 0.125 Mg Tablet) 0.125 mg PO DAILY [facility] Last Admin: 12/25/23 08:57 Dose: 0.125 mg Documented By: NAYANA Furosemide (Furosemide 20 Mg/2 Ml Vial) 20 mg IVPUSH BID@0900,1800 [facility]; Protocol Last Admin: 12/25/23 09:09 Dose: 20 mg Documented By: NAYANA Cefepime HCl 2 gm/ Sodium (Chloride) 50 mls @ 100 mls/hr IV Q8H [facility] Stop: 12/26/23 08:59 Last Admin: 12/25/23 10:54 Dose: 100 mls/hr Documented By: NAYANA Potassium Chloride (Potassium Chloride/H20) 10 meq in 100 mls @ 100 mls/hr IV Q1H [facility] Stop: 12/25/23 12:29 Last Admin: 12/25/23 10:54 Dose: 100 mls/hr Documented By: NAYANA Metoprolol Succinate (Metoprolol Succinate Er 50 Mg Tab.Er.24h) 50 mg PO DAILY [facility]; Protocol Last Admin: 12/25/23 08:56 Dose: 50 mg Documented By: NAYANA Omeprazole (Omeprazole/Na Bicarb Oral Susp 20 Mg/10 Ml Ud Cup) 20 mg PO BID@0630,1630 PRN PRN Reason: Heartburn Last Admin: 12/23/23 09:46 Dose: 20 mg Documented By: ANTIONE Sertraline HCl (Sertraline Hcl 50 Mg Tablet) 150 mg PO DAILY [facility] Last Admin: 12/25/23 08:56 Dose: 150 mg Documented By: NAYANA Sodium Chloride (0.9 % Sodium Chloride Flush 3 Ml Syringe) 3 ml IVFLUSH QSHIFT [facility] Last Admin: 12/25/23 08:57 Dose: 3 ml Documented By: NAYANA Valsartan (Valsartan 40 Mg Tablet) 20 mg PO BID [facility]; Protocol Last Admin: 12/25/23 08:51 Dose: 20 mg Documented By: NAYANA Labs 12/25/23 06:36 12/25/23 06:03 Labs: Laboratory Results - last 24 hr 12/22/23 12/25/23 12/25/23 14:58 06:03 06:36 MCV 92.4 MCH 30.4 MCHC 32.9 RDW 14.0 Plt Count 303 MPV 10.9 Immature Gran % (Auto) 0.8 H Neut % (Auto) 83.2 H Lymph % (Auto) 4.1 L [place] % (Auto) 10.8 Eos % (Auto) 0.8 Baso % (Auto) 0.3 Lymph # (Auto) 0.4 L [place] # (Auto) 1.1 Eos # (Auto) 0.1 Baso # (Auto) 0.0 Abs Immat Gran (auto) 0.08 H Absolute Neuts (auto) 8.7 H Absolute Nucleated RBC 0.000 Nucleated RBC % (auto) 0.0 Anion Gap 10 L Estim Creat Clear Calc 64.4 Estimated GFR > 60 Random Glucose 135 H Calcium 8.0 L Phosphorus 2.7 Magnesium 2.1 B-Natriuretic Peptide 1495 H Procalcitonin 0.09 Pericard Total Protein 4.6 Pericardial Albumin 3.4 Pericardial Glucose 104 Microbiology Microbiology Results: Microbiology 12/22/23 13:43 Gram Stain - Final Pericardial Fluid Routine Culture - Final No growth after 2 days Anaerobic Culture - Preliminary No growth to date. Assessment and Plan (1) Pericardial effusion: Status: Acute Plan d4 83yo M with HFrEF, MCI, mood disorder, BPH, gout presenting with 1 mo dizziness + hypotension, found to have pericardial effusion with early tamponade pericardial effusion with early tamponade - s/p pericardial window 12/20 and observed in ICU overnight; drain pulled 12/22; bloody fluid with no evidence of bacterial infection; pericardial fluid cytology pending acute-chronic HFrEF - appears euvolemic; will change IV to PO furosemide; Cardiology following; started valsartan and will increase dose; change metoprolol tartrate to succinate hypoK - replete IV/PO; recheck BMP in AM atrial flutter with RVR - now rate-controlled; metoprolol succinate + digoxin; started Eliquis 12/23 after cleared by Thoracic Surgery pneumonia - on cefepime 12/22-12/25; BCx neg; PCT low AHRF - wean O2 as tolerated gout - allopurinol HTN - valsartan + metoprolol as above mood disorder - sertraline VTE ppx - started apixaban dispo - PT eval: STR placement In my clinical judgment, the patient requires continued inpatient hospitalization for the following reasons: electrolyte repletion, placement Total time managing care of this patient today: 40 minutes. Quality Stroke Does the patient have a stroke diagnosis?: No VTE Prior VTE?: No VTE Risk Level:: Medical - moderate - high VTE Device Contraindication: N/A - Device Ordered VTE Drug Contraindication: Treatment Not Tolerated
--- NOTE | 2023-12-25 15:44 | MHC.CM.PN ---
CM CONTACTED PT'S DTR/HCP EAMON EARLIER IN SHIFT AFTER RECIEVING MESSAGES THAT SHE HAD CALLED, EAMON VERY CONCERNED ABOUT PT AND THINKS HE WILL GO TO STR EVEN THOUGH HE INITIALLY DECLINED, EAMON UPSET D/T NOT REALIZING PT WAS NOT SERVICE CONNECTED W/VA, CM REASSURED THAT PT'S [employer] MEDICARE WILL COVER COST OF STR AND/OR HOME SERVICES, EAMON REPORTS THAT PT HAS BEEN TO [facility] AND THAT HE LIKED THE FOOD THERE, SNF REFERRAL PLACED, CM WILL CONT TO FOLLOW DC NEEDS.
--- NOTE | 2023-12-25 16:24 | PC.NURSE ---
israel cath removed at 1600. pt denying any pain/ discomfort .External cath placed.
[2023-12-25] MEDS: Furosemide 20 MG TABLET PO (16:54)
[2023-12-25] MEDS: Valsartan 40 MG TABLET PO (20:19)
[2023-12-26] VITALS (7 sets, daily range): BP systolic 104–187; BP diastolic 67–95; PULSE 58–79; RESP 16–20; TEMP 36.1–37.1; O2SAT 92–96; BMI 31.1
[2023-12-26] MEDS: cefEPime HCl 2 GM in 0.9 % Sodium Chloride 50 ML IV (00:48)
[2023-12-26 06:39] LABS: MANUAL DIFF FLAG NO
[2023-12-26 06:52] LABS: Basophils Percent Auto 0.4 % (0-2); Eosinophils Absolute Auto 0.1 X10*3/uL (0.0-0.4); Eosinophils Percent Auto 1.3 % (0-4); Hematocrit 38.1 % (42.0-52.0); Hemoglobin 12.9 g/dl (14.0-18.0); Imm Gran Abs Auto 0.11 X10*3/uL (0.00-0.03); Lymphocytes Absolute Auto 0.5 X10*3/uL (1.2-4.9); Mean Corpuscular HGB Conc 33.9 g/dl (31.0-36.0); Mean Corpuscular Volume 91.6 fL (80.0-98.0); Mean Platelet Volume 10.7 fL (9.4-12.4); Monocytes Percent Auto 9.6 % (2-11); Neutrophils Percent Auto 82.7 % (45-73); Platelet Count 282 X10*3/uL (160-400); Red Blood Count 4.16 X10*6/uL (4.60-5.80); Red Cell Distribution Width 13.9 % (11.0-16.0); White Blood Count 10.8 X10*3/uL (4.8-10.8)
[2023-12-26 07:23] LABS: Anion Gap 12 (12-20); Blood Urea Nitrogen 29 mg/dL (9-16); Carbon Dioxide 27 mmol/L (22-29); Chloride 105 mmol/L (96-108); Creatinine Clr Calc Pharmacy 70.4; Estimated Glomerular Filt Rate > 60; Glucose Random 130 mg/dL (60-115); Magnesium 2.1 mg/dL (1.6-2.6); Phosphorus 2.1 mg/dL (2.7-4.5); Potassium 3.5 mmol/L (3.3-5.1); Sodium 140 mmol/L (135-145)
[2023-12-26 07:34] LABS: B Type Natriuretic Peptide 1679 pg/mL (<100)
[2023-12-26] MEDS: Metoprolol Succinate ER 50 MG TAB.ER.24H PO (09:49)
[2023-12-26] MEDS: Furosemide 20 MG TABLET PO ×2 (09:49→17:30)
[2023-12-26] MEDS: allopurinoL 300 MG TABLET PO (09:50)
[2023-12-26] MEDS: Sertraline HCL 50 MG TABLET 150 MG PO (09:50)
[2023-12-26] MEDS: Apixaban 5 MG TABLET PO ×2 (09:50→19:56)
[2023-12-26] MEDS: Valsartan 40 MG TABLET PO ×2 (09:50→19:56)
[2023-12-26] MEDS: Digoxin 0.125 MG TABLET PO (09:50)
[2023-12-26] MEDS: 0.9 % Sodium Chloride Flush 3 ML SYRINGE IVFLUSH ×3 (09:56→19:55)
--- NOTE | 2023-12-26 14:40 | HO.PM.IMPN ---
Subjective Subjective Date of Service: 12/26/23 Interval History: Overall continue to recover well, no new issues, no sob, less confused agreable to STR Physical Exam Vital Signs: Vital Signs: Last Vital Signs Temp 97.2 F 12/26/23 11:36 Pulse 79 12/26/23 11:36 Resp 20 12/26/23 11:36 BP 130/78 12/26/23 11:36 Pulse Ox 96 12/26/23 11:36 O2 Del Method Room Air 12/26/23 11:36 O2 Flow Rate 2 12/25/23 03:13 FiO2 30 12/22/23 21:00 Oxygen Flow Rate 4 12/22/23 18:00 BMI result Body Mass Index 31.1 Gen: NAD HEENT: sclera anicteric, moist mucus membranes Neck: supple Lungs: clear Heart: iregular, iregular, no leg edema Abd: soft, non-tender, non-distended Ext: no leg edema Skin: warm/well-perfused Neuro: alert and oriented x3 but confused about circumstances of hospitalization, no focal motor deficits Psych: appropriate affect Objective Data Active Medications Allopurinol (Allopurinol 300 Mg Tablet) 300 mg PO DAILY [facility] Last Admin: 12/26/23 09:50 Dose: 300 mg Documented By: NAYANA Apixaban (Apixaban 5 Mg Tablet) 5 mg PO BID [facility] Last Admin: 12/26/23 09:50 Dose: 5 mg Documented By: NAYANA Digoxin (Digoxin 0.125 Mg Tablet) 0.125 mg PO DAILY [facility] Last Admin: 12/26/23 09:50 Dose: 0.125 mg Documented By: NAYANA Furosemide (Furosemide 20 Mg Tablet) 20 mg PO BID@0900,1800 [facility]; Protocol Last Admin: 12/26/23 09:49 Dose: 20 mg Documented By: NAYANA Metoprolol Succinate (Metoprolol Succinate Er 50 Mg Tab.Er.24h) 50 mg PO DAILY [facility]; Protocol Last Admin: 12/26/23 09:49 Dose: 50 mg Documented By: NAYANA Omeprazole (Omeprazole/Na Bicarb Oral Susp 20 Mg/10 Ml Ud Cup) 20 mg PO BID@0630,1630 PRN PRN Reason: Heartburn Last Admin: 12/23/23 09:46 Dose: 20 mg Documented By: ANTIONE Sertraline HCl (Sertraline Hcl 50 Mg Tablet) 150 mg PO DAILY [facility] Last Admin: 12/26/23 09:50 Dose: 150 mg Documented By: NAYANA Sodium Chloride (0.9 % Sodium Chloride Flush 3 Ml Syringe) 3 ml IVFLUSH QSHIFT [facility] Last Admin: 12/26/23 09:56 Dose: 3 ml Documented By: NAYANA Valsartan (Valsartan 40 Mg Tablet) 40 mg PO BID [facility]; Protocol Last Admin: 12/26/23 09:50 Dose: 40 mg Documented By: NAYANA Labs 12/26/23 06:19 12/26/23 06:19 Labs: Laboratory Results - last 24 hr 12/26/23 06:19 MCV 91.6 MCH 31.0 MCHC 33.9 RDW 13.9 Plt Count 282 MPV 10.7 Immature Gran % (Auto) 1.0 H Neut % (Auto) 82.7 H Lymph % (Auto) 5.0 L [place] % (Auto) 9.6 Eos % (Auto) 1.3 Baso % (Auto) 0.4 Lymph # (Auto) 0.5 L [place] # (Auto) 1.0 Eos # (Auto) 0.1 Baso # (Auto) 0.0 Abs Immat Gran (auto) 0.11 H Absolute Neuts (auto) 9.0 H Absolute Nucleated RBC 0.000 Nucleated RBC % (auto) 0.0 Anion Gap 12 Estim Creat Clear Calc 70.4 Estimated GFR > 60 Random Glucose 130 H Calcium 8.0 L Phosphorus 2.1 L Magnesium 2.1 B-Natriuretic Peptide 1679 H Microbiology Microbiology Results: Microbiology 12/22/23 13:43 Gram Stain - Final Pericardial Fluid Routine Culture - Final No growth after 2 days Anaerobic Culture - Preliminary No growth to date. 12/22/23 13:43 Fungal Identification - Preliminary Pericardial Fluid No growth to date. Assessment and Plan (1) Pericardial effusion: Status: Acute Plan 83yo M with HFrEF, MCI, mood disorder, BPH, gout presenting with 1 mo dizziness + hypotension, found to have pericardial effusion with early tamponade pericardial effusion with early tamponade - s/p pericardial window 12/20 and observed in ICU overnight; drain pulled 12/22; bloody fluid with no evidence of bacterial infection; pericardial fluid cytology pending acute-chronic HFrEF - appears euvolemic; continue PO furosemide; Cardiology following; started valsartan; change metoprolol succinate hypoK - replete IV/PO; recheck BMP in AM atrial flutter with RVR - now rate-controlled; metoprolol succinate + digoxin; started Eliquis 12/23 after cleared by Thoracic Surgery pneumonia - on cefepime 12/22-12/25; BCx neg; Prolactin low AHRF--resolved, Off O2 gout - allopurinol HTN - valsartan + metoprolol as above mood disorder - sertraline VTE ppx - started apixaban dispo - PT eval: STR placement, agreable need for inpt: awaiting short term placement Total time managing care of this patient today: 40 minutes. Quality Stroke Does the patient have a stroke diagnosis?: No VTE Prior VTE?: No VTE Risk Level:: Medical - moderate - high VTE Device Contraindication: N/A - Device Ordered VTE Drug Contraindication: Treatment Not Tolerated
[2023-12-26] MEDS: Docusate Sodium 100 MG CAPSULE 200 MG PO (17:30)
[2023-12-27] VITALS: BP 137/82; PULSE 66; RESP 18; TEMP 36.3; O2SAT 93
[2023-12-27 04:00] VITALS: BP 137/79; PULSE 67; RESP 18; TEMP 36.1; O2SAT 97
--- NOTE | 2023-12-27 04:28 | PC.NURSE ---
Pt AOx3, can be forgetful. x2 assist w/walker, using urinal, can be incontinent at times. Dsg to L chest area CDI. Pt is [place] and wears glasses. Bed alarm on, call marion within reach. Pt's daughter called upset stating a foster care case manager called and left a message that her father would be discharged 12/26. Daughter does not think her father is stable enough to be discharged at this time. Daughter was requesting more imaging and cardiac tests be run. Daughter requested this RN call with any changes; she was upset no one called her when her father had a 7 beat run of Vtach. This RN tried to explain to daughter that her father went back to [employer] after that run and there was no need to call her. Daughter stated the run of Vtach was a change in her father's status and she should be called with any changes. This RN told daughter she would call with any major changes.
[2023-12-27 05:36] VITALS: BMI 30.5
[2023-12-27 06:39] LABS: MANUAL DIFF FLAG NO
[2023-12-27 06:50] LABS: Basophils Absolute Auto 0.1 X10*3/uL (0.0-0.2); Basophils Percent Auto 0.6 % (0-2); Eosinophils Absolute Auto 0.2 X10*3/uL (0.0-0.4); Eosinophils Percent Auto 1.6 % (0-4); Hematocrit 39.9 % (42.0-52.0); Hemoglobin 13.5 g/dl (14.0-18.0); Imm Gran Abs Auto 0.15 X10*3/uL (0.00-0.03); Imm Gran Pct Auto 1.5 % (0.0-0.4); Lymphocytes Absolute Auto 0.6 X10*3/uL (1.2-4.9); Lymphocytes Percent Auto 6.4 % (20-40); Mean Corpuscular HGB Conc 33.8 g/dl (31.0-36.0); Mean Corpuscular Hemoglobin 30.5 pg (27.0-33.0); Mean Corpuscular Volume 90.1 fL (80.0-98.0); Mean Platelet Volume 10.4 fL (9.4-12.4); Monocytes Absolute Auto 0.9 X10*3/uL (0.1-1.2); Neutrophils Percent Auto 80.9 % (45-73); Platelet Count 287 X10*3/uL (160-400); Red Blood Count 4.43 X10*6/uL (4.60-5.80); Red Cell Distribution Width 14.1 % (11.0-16.0); White Blood Count 9.8 X10*3/uL (4.8-10.8)
--- NOTE | 2023-12-27 07:05 | P.DS_ITS ---
DS: Providers Provider Date of Service: 12/29/23 Date of admission: 12/22/23 05:23 Date of discharge: 12/29/23 Primary care physician: Diane Morlaes CNP Consults: 12/22/23 05:21 Consult to Cardiology Routine Consulting Provider: [facility] Reason for consultation: pericardial effusion Has provider been notified: Yes Consult to Thoracic Surgery Routine Consulting Provider: Ethan Norman Reason for consultation: pericardial effusion DS: Diagnosis Discharge Diagnosis (1) Pericardial effusion: Status: Acute DS: Summary Hospital Course Hospital Course: admission hpi Chief Complaint: dizzy 83M PMH remote history of etoh dependence, hfref, mild cognitive impairment, mood disorder, bph, gout, presented with about 1 month dizziness. on 12/05/23 was noted to be hypotensive at home 84/54, home lisinopril was stopped, but continued to fell off balance, difficulty walking, saw pcp 12/12/23, recommended mri, but patient refused. also notes more fatigue, napping longer and more frequently. denies sob but is noted to be using more accessory muscles and everyone asks him if he feels sob. due to non resolving issues and worsening edema and falls and weakness came to ED. in ED ct chest showed 3cm mod to large pericardial effusion. hospital course: Patient presented with shortness of breath and dizziness, and workup with a CT scan revealed a moderate to large pericardial effusion, which was confirmed with an echocardiogram showing signs of early tamponade. She underwent a pericardial window by Dr. Norman and was observed in the ICU overnight. The hospital course was further complicated by pneumonia, heart failure, and new onset of atrial fibrillation. problems Pericardial effusion with early tamponade: -S/P pericardial window on 12/21/23 and observed in the ICU overnight; drain removed on 12/22; bloody fluid with no evidence of bacterial infection; pericardial fluid cytology pending. Symptoms of dizziness and shortness of breath resolved. Repeat echocardiogram on 12/23/23 showed a small pericardial effusion without signs of tamponade. Acute-chronic HFrEF: Treated with IV Lasix and now transitioned to oral Lasix. Patient is now euvolemic. Further management with Valsartan and Metoprolol. He was followed by cardiology Hypokalemia: Replaced and resolved. Atrial flutter with RVR: New onset post-pericardial window. Now rate controlled with Metoprolol, Digoxin, and stroke prevention with Eliquis. Pneumonia: Treated with Cefepime; blood cultures negative, Procalcitonin and cultures negative. acute hypoxic respiratory failure: related to pericardial effusion, CHF, Resolved, off O2. Gout: Allopurinol. Confusion--likely hospital delirium, CT head negative, B12, folate, unremarkable, TSH normal. Seen by Neuro and had EEG showing slow waves but no seizure HTN: Valsartan + Metoprolol as above. Mood disorder: Sertraline. Thyroid nodule: US as follow 1. A 3.1 cm mid to lower right thyroid lobe TR 5 nodule meets ACR biopsy criteria and is amenable to ultrasound-guided biopsy, if clinically indicated and not already performed. 2. 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 ACR TI-RADS RECOMMENDATION REFERENCE: Ultrasound-guided fine-needle aspiration, followup ultrasound, no further follow up. --Will need outpatient biopsy through IR Time Attestation Discharge Coordination Time (in mins): 45 Quality: Safe Use of Opioids Does Pt have an Active Cancer Diagnosis on the Problem List?: No Quality: Stroke Does the patient have a stroke diagnosis?: No Physical Exam Vital Signs: Vital Signs: Selected Entries 12/29/23 07:31 Temperature 98.0 F Pulse Rate 73 Respiratory Rate 18 Blood Pressure 146/71 H Pulse Oximetry 93 Oxygen Delivery Me thod Room Air General: AO X 3, no acute distress Resp: CTA bilateral CVS: S1,S2,RRR GI: +BS, NT, no distention Skin: No rash Neuro: motor grossly intact Psych: appropriate affect DS: Data Data Completed and Pending Completed studies during hospitalization [Text1]: Pending at discharge 12/22/23 13:43 Surgical Path [Surgical] [PTH] Routine Procedures Assistance with Respiratory Ventilation, Less than 24 Consecutive Hours, Continuous Positive Airway Pressure (03/01/23) Pending studies at discharge: Pending at discharge 12/22/23 13:43 Cytology [PTH] Stat Labs on day of discharge: Laboratory Results - last 24 hr 12/26/23 12/27/23 06:19 06:25 WBC 9.8 RBC 4.43 L Hgb 13.5 L Hct 39.9 L MCV 90.1 MCH 30.5 MCHC 33.8 RDW 14.1 Plt Count 287 MPV 10.4 Immature Gran % (Auto) 1.5 H Neut % (Auto) 80.9 H Lymph % (Auto) 6.4 L [place] % (Auto) 9.0 Eos % (Auto) 1.6 Baso % (Auto) 0.6 Lymph # (Auto) 0.6 L [place] # (Auto) 0.9 Eos # (Auto) 0.2 Baso # (Auto) 0.1 Abs Immat Gran (auto) 0.15 H Absolute Neuts (auto) 8.0 Absolute Nucleated RBC 0.000 Nucleated RBC % (auto) 0.0 Sodium 140 Potassium 3.5 D Chloride 105 Carbon Dioxide 27 Anion Gap 12 BUN 29 H Creatinine 0.82 Estim Creat Clear Calc 70.4 Estimated GFR > 60 Random Glucose 130 H Calcium 8.0 L Phosphorus 2.1 L Magnesium 2.1 B-Natriuretic Peptide 1679 H Preliminary micro results at discharge 12/22/23 13:43 Anaerobic Culture - Preliminary Pericardial Fluid No growth to date. 12/22/23 13:43 Fungal Identification - Preliminary Pericardial Fluid No growth to date. Discharge Plan Discharge Anticipated Discharge Date/Time: 12/29/23 11:19 Patient Disposition: Xfer SNF Discharge Diagnosis: pericardial effusion, pneumonia, atrial fibrillation, acute on chronic heart failure with preserved ejection fraction Referrals: [facility] [Outside] - 1 Day (SHORT TERM REHAB) Gilda Broussard NP-C [Nurse Practitioner] - 1 Week Diane Morales CNP [Primary Care Provider] - 1 Week Ethan Norman MD [Physician] - 1 Week Discharge Medications: New Eliquis 5 mg Tablet 5 mg PO BID Qty: 60 0RF metoprolol succinate 50 mg Tablet Extended Release 24 Hr 50 mg PO DAILY Qty: 30 0RF Protocol: Hold for SBP/HR < HOLD for SBP < : 90 HOLD for HR < : 60 digoxin 125 mcg (0.125 mg) Tablet 0.125 mg PO DAILY Qty: 30 0RF valsartan 40 mg Tablet 40 mg PO BID Qty: 60 0RF Protocol: Hold for SBP< HOLD for SBP < : 90 Continued sertraline 100 mg tablet 150 mg PO DAILY omeprazole 20 mg capsule,delayed release(DR/EC) 20 mg PO BID PRN (Reason: Heart Burn) allopurinol 300 mg tablet 300 mg PO DAILY Changed furosemide [Lasix] 20 mg tablet 20 mg PO BID Qty: 60 0RF Discharge Orders: Discharge Order (Routine); Ordered 12/29/23 Ordered By: Jairo Mendez Diet: Advance to usual diet Activity on Discharge: No prolonged sitting Stand Alone Forms: Patient Portal Discharge page Print Language: Rw[place]an Other Ambulatory Orders: US biopsy thyroid (Routine) Timeframe: 10 Day Facility: [facility] - Location: Ultrasound Ordered By: Jairo Mendez Activity Restrictions/Additional Instructions: Ice to wound 20 minutes several times a day.. May shower . Remove outside dressing only. Leave Steri-Strips intact. No strenuous activities Care Plan Goals: recovery from heart failure, pneumonia, pericardial effusion, Health Concerns: Pericardial effusion heart failure pneumonia atrial fibrillation Plan of Treatment: take all medications as recommended follow-up with your doctor follow up with cardiology office follow up with Dr. Norman, thoracic surgeon check digoxin level next week monday or monday Follow up with Interventional radiology for thyroid biopsy Assessment: see above Discharge Date/Time: 12/29/23 17:57
[2023-12-27 07:17] LABS: Anion Gap 16 (12-20); Blood Urea Nitrogen 26 mg/dL (9-16); Calcium 8.6 mg/dL (8.4-10.2); Carbon Dioxide 22 mmol/L (22-29); Chloride 104 mmol/L (96-108); Creatinine Clr Calc Pharmacy 70.6; Estimated Glomerular Filt Rate > 60; Glucose Random 130 mg/dL (60-115); Magnesium 2.2 mg/dL (1.6-2.6); Phosphorus 2.4 mg/dL (2.7-4.5); Potassium 3.4 mmol/L (3.3-5.1); Sodium 139 mmol/L (135-145)
[2023-12-27] MEDS: Digoxin 0.125 MG TABLET PO (07:50)
[2023-12-27] MEDS: Sertraline HCL 50 MG TABLET 150 MG PO (07:50)
[2023-12-27] MEDS: Metoprolol Succinate ER 50 MG TAB.ER.24H PO (07:51)
[2023-12-27] MEDS: Valsartan 40 MG TABLET PO ×2 (07:51→19:40)
[2023-12-27] MEDS: allopurinoL 300 MG TABLET PO (07:51)
[2023-12-27] MEDS: Apixaban 5 MG TABLET PO ×2 (07:51→19:40)
[2023-12-27] MEDS: Furosemide 20 MG TABLET PO ×2 (07:51→17:16)
[2023-12-27] MEDS: 0.9 % Sodium Chloride Flush 3 ML SYRINGE IVFLUSH ×2 (07:51→17:16)
[2023-12-27] MEDS: Docusate Sodium 100 MG CAPSULE 200 MG PO (07:51)
[2023-12-27 08:00] VITALS: BP 129/78; PULSE 72; RESP 20; TEMP 36.3; O2SAT 94
--- NOTE | 2023-12-27 08:17 | MHC.CM.PN ---
ANTIC PT WILL DC TO [facility] FOR STR VIA [facility] FOR BLS TRANSPORT, PER HOSPITALIST HE WILL REACH OUT TO PT'S DTR EAMON PRIOR TO DC.
--- NOTE | 2023-12-27 09:56 | MHC.CM.PN ---
CM MET W/HOSPITALIST, PT DTR/HCP EAMON AND OTHER FAMILY MEMBER, EAMON IS UPSET SHE DOES NOT FEEL PT IS READY FOR DC TO [facility], EAMON IS VERY INSISTENT THAT PT IS NOT STABLE ENOUGH AND IS VERY FOCUSED ON PT ONLY GETTING 3MIN OF REHAB A DAY AT [facility], CM AND HOSPITALIST ATTEMPTED TO REASSURE EAMON THAT PT COULD BE CLEARED FOR DC HOWEVER THIS WAS NOT EFFECTIVE AND EAMON CONTINUED TO INSIST THAT PT IS NOT READY, OTHER FAMILY MEMBER ALSO REPORTED HE THINKS PT IS NOT READY AND DOING WORSE THAN YESTERDAY. HOSPITALIST WILL HAVE CARDIOLOGY SEE PT TO DETERMINE IF PT NEEDS CONT WORK-UP. CM DID ATTEMPT TO HAVE EAMON APPEAL DISCHARGE HOWEVER EAMON REFUSED, CM ALSO OFFERED TO SEND REFERRAL TO ADDITIONAL SNFS HOWEVER EAMON WOULD NOT PARTICIPATE IN CONVERSATION REGARDING STR PLACEMENT AND REQUESTED TO SPEAK W/PT ADVOCATE WHO WAS NOTIFIED VIA [email or web address].
--- NOTE | 2023-12-27 10:41 | P.PNIM_ITS ---
Subjective Subjective Date of Service: 12/27/23 Interval History: Pt had 7 beat vtach overnight, daughter thinks he's more confused that usual pt is awake alert, with no difficulty breathing vitals are otherwise stable. Physical Exam 2 Vital Signs: Vital Signs: Last Vital Signs Temp 97.4 F 12/27/23 08:00 Pulse 72 12/27/23 08:00 Resp 20 12/27/23 08:00 BP 129/78 12/27/23 08:00 Pulse Ox 94 12/27/23 08:00 O2 Del Method Room Air 12/27/23 08:00 O2 Flow Rate 2 12/25/23 03:13 FiO2 30 12/22/23 21:00 Oxygen Flow Rate 4 12/22/23 18:00 BMI result Body Mass Index 30.5 Const: Other: General: AO X 2, no acute distress Resp: CTA bilateral, non laboed CVS: S1,S2, iregular irregular GI: +BS, NT, no distention Skin: No rash Neuro: motor grossly intact Psych: appropriate affect Objective Data Active Medications Allopurinol (Allopurinol 300 Mg Tablet) 300 mg PO DAILY [facility] Last Admin: 12/27/23 07:51 Dose: 300 mg Documented By: CORRIE Apixaban (Apixaban 5 Mg Tablet) 5 mg PO BID [facility] Last Admin: 12/27/23 07:51 Dose: 5 mg Documented By: CORRIE Digoxin (Digoxin 0.125 Mg Tablet) 0.125 mg PO DAILY [facility] Last Admin: 12/27/23 07:50 Dose: 0.125 mg Documented By: CORRIE Docusate Sodium (Docusate Sodium 100 Mg Capsule) 200 mg PO DAILY [facility] Last Admin: 12/27/23 07:51 Dose: 200 mg Documented By: CORRIE Furosemide (Furosemide 20 Mg Tablet) 20 mg PO BID@0900,1800 [facility]; Protocol Last Admin: 12/27/23 07:51 Dose: 20 mg Documented By: CORRIE Metoprolol Succinate (Metoprolol Succinate Er 50 Mg Tab.Er.24h) 50 mg PO DAILY [facility]; Protocol Last Admin: 12/27/23 07:51 Dose: 50 mg Documented By: CORRIE Omeprazole (Omeprazole/Na Bicarb Oral Susp 20 Mg/10 Ml Ud Cup) 20 mg PO BID@0630,1630 PRN PRN Reason: Heartburn Last Admin: 12/23/23 09:46 Dose: 20 mg Documented By: ANTIONE Sertraline HCl (Sertraline Hcl 50 Mg Tablet) 150 mg PO DAILY [facility] Last Admin: 12/27/23 07:50 Dose: 150 mg Documented By: CORRIE Sodium Chloride (0.9 % Sodium Chloride Flush 3 Ml Syringe) 3 ml IVFLUSH QSHIFT [facility] Last Admin: 12/27/23 07:51 Dose: 3 ml Documented By: CORRIE Valsartan (Valsartan 40 Mg Tablet) 40 mg PO BID [facility]; Protocol Last Admin: 12/27/23 07:51 Dose: 40 mg Documented By: CORRIE Labs 12/27/23 06:25 12/27/23 06:25 Labs: Laboratory Results - last 24 hr 12/27/23 06:25 MCV 90.1 MCH 30.5 MCHC 33.8 RDW 14.1 Plt Count 287 MPV 10.4 Immature Gran % (Auto) 1.5 H Neut % (Auto) 80.9 H Lymph % (Auto) 6.4 L [place] % (Auto) 9.0 Eos % (Auto) 1.6 Baso % (Auto) 0.6 Lymph # (Auto) 0.6 L [place] # (Auto) 0.9 Eos # (Auto) 0.2 Baso # (Auto) 0.1 Abs Immat Gran (auto) 0.15 H Absolute Neuts (auto) 8.0 Absolute Nucleated RBC 0.000 Nucleated RBC % (auto) 0.0 Anion Gap 16 Estim Creat Clear Calc 70.6 Estimated GFR > 60 Random Glucose 130 H Calcium 8.6 D Phosphorus 2.4 L Magnesium 2.2 Microbiology Microbiology Results: Microbiology 12/22/23 13:43 Gram Stain - Final Pericardial Fluid Routine Culture - Final No growth after 2 days Anaerobic Culture - Final NO GROWTH AFTER 5 DAYS 12/22/23 04:03 Blood Culture - Final Blood - Venous No growth after 5 days. 12/22/23 04:03 Blood Culture - Final Blood - Venous No growth after 5 days. Assessment and Plan (1) Pericardial effusion: Status: Acute Plan 83yo M with HFrEF, MCI, mood disorder, BPH, gout presenting with 1 mo dizziness + hypotension, found to have pericardial effusion with early tamponade pericardial effusion with early tamponade - s/p pericardial window 12/20 and observed in ICU overnight; drain pulled 12/22; bloody fluid with no evidence of bacterial infection; pericardial fluid cytology pending, last echo 12/22..trace effusion and no tamponade acute-chronic HFrEF - appears euvolemic; continue PO furosemide; Cardiology following; started valsartan; change metoprolol succinate hypoK - replete IV/PO; recheck BMP in AM atrial flutter with RVR - now rate-controlled; metoprolol succinate + digoxin; started Eliquis 12/23 after cleared by Thoracic Surgery pneumonia - on cefepime 12/22-12/25; BCx neg; Prolactin low AHRF--resolved, Off O2 Confusion--likely hospital delirium, monitor avoid thinks that will make it worse, reorient -ct head, neuro consult gout - allopurinol HTN - valsartan + metoprolol as above mood disorder - sertraline VTE ppx - started apixaban dispo - PT eval: [facility] placement, agreable need for inpt: awaiting short term placement Total time managing care of this patient today: 40 minutes. Quality Stroke Does the patient have a stroke diagnosis?: No VTE Prior VTE?: No VTE Risk Level:: Medical - moderate - high VTE Device Contraindication: N/A - Device Ordered VTE Drug Contraindication: Treatment Not Tolerated
--- NOTE | 2023-12-27 10:50 | PM.PNCARD ---
Subjective Subjective Date of Service: 12/27/23 Principal diagnosis: CHF, pericardial tamponade, atrial flutter. Interval history: Was asked to see the patient by hospitalist and also daughter would like to discuss with me. Essentially, she is concerned that patient is not looking his usual self. He is not alert or oriented well. Hence she is concerned about it. Otherwise, there is no clear-cut symptoms like chest pain or shortness of breath. He is status post pericardial window for a large effusion. Review of Systems Review of Systems Yes all other systems are reviewed and are negative Constitutional: Reports as per HPI and Reports no additional constitutional complaints Eyes: Reports as per HPI and Denies no additional eye complaints Denies system reviewed and no additional complaints, except as documented and Reports as per HPI Cardiovascular: Reports as per HPI, Reports no additional cardiovascular complaints, Denies acrocyanosis, Denies cool extremities, Denies chest pain, Denies leg edema, Denies lightheadedness, Denies palpitations and Denies dyspnea Respiratory: Reports as per HPI, Denies no additional respiratory complaints and Denies dyspnea Gastrointestinal: Reports as per HPI and Denies no additional gastrointestinal complaints Genitourinary: Reports no additional male genitourinary complaints and Reports as per HPI Musculoskeletal: Reports no additional musculoskeletal complaints and Reports as per HPI Skin/Breast: Reports system reviewed and no additional complaints, except as docu Reports system reviewed and no additional complaints, except as documented, Reports as per HPI and Reports confusion Psychiatric: Reports no additional psychiatric complaints, Reports as per HPI and Reports confusion Endocrine: Reports no additional endocrine complaints, Reports as per HPI and Denies palpitations Hematologic/Lymphatic: Reports no additional hematologic/lymphatic complaints and Reports as per HPI Allergic/Immunologic: Reports no additional allergic/immunologic complaints and Reports as per HPI Physical Exam Vital Signs: Last Vital Signs Temp 97.4 F 12/27/23 08:00 Pulse 72 12/27/23 08:00 Resp 20 12/27/23 08:00 BP 129/78 12/27/23 08:00 Pulse Ox 94 12/27/23 08:00 O2 Del Method Room Air 12/27/23 08:00 O2 Flow Rate 2 12/25/23 03:13 FiO2 30 12/22/23 21:00 Oxygen Flow Rate 4 12/22/23 18:00 BMI result Body Mass Index 30.5 Const General: no acute distress, confusion, lethargic and tired appearing Orientation/consciousness: No patient oriented x3, confusion and lethargic HEENT Other: Unremarkable Head: Yes normal to inspection Neck Neck: Yes normal visual inspection Chest Chest palpation & inspection: normal inspection of the chest Resp Other: Minimal crackles at bases Cardio Palpation: normal PMI Heart sounds: S1 normal heart sound present, S2 normal heart sound present, no gallops, no murmurs and no rubs GI Palpation (GI): Soft to palpation Back/Spine/Pelvis Other: unremarkable Skin General skin exam: no rashes or lesions noted Neuro General: No patient oriented x3 and confusion Extrem General: Yes normal to inspection Psych Mental Status: mental status grossly abnormal Objective Labs and Meds 12/27/23 06:25 12/27/23 06:25 Lab results: Laboratory Results - last 24 hr 12/27/23 06:25 WBC 9.8 RBC 4.43 L Hgb 13.5 L Hct 39.9 L MCV 90.1 MCH 30.5 MCHC 33.8 RDW 14.1 Plt Count 287 MPV 10.4 Immature Gran % (Auto) 1.5 H Neut % (Auto) 80.9 H Lymph % (Auto) 6.4 L [place] % (Auto) 9.0 Eos % (Auto) 1.6 Baso % (Auto) 0.6 Lymph # (Auto) 0.6 L [place] # (Auto) 0.9 Eos # (Auto) 0.2 Baso # (Auto) 0.1 Abs Immat Gran (auto) 0.15 H Absolute Neuts (auto) 8.0 Absolute Nucleated RBC 0.000 Nucleated RBC % (auto) 0.0 Sodium 139 Potassium 3.4 Chloride 104 Carbon Dioxide 22 Anion Gap 16 BUN 26 H Creatinine 0.81 Estim Creat Clear Calc 70.6 Estimated GFR > 60 Random Glucose 130 H Calcium 8.6 D Phosphorus 2.4 L Magnesium 2.2 Progress Note: A&P Assessment and plan (1) Pericardial tamponade: Status: Acute Assessment and Plan: Status post drainage. Follow-up echocardiogram reported to have small pericardial effusion. Could not exclude constriction physiology. (2) Atrial fibrillation: Status: Acute Assessment and Plan: Overall, rate seems fairly controlled on telemetry. Do not see any obviously rapid rates. Continue current meds including beta-blockers, digoxin, anticoagulation. (3) Acute CHF: Status: Acute Assessment and Plan: Cardiac BNP is on the higher side but he does not seem to have any overt heart failure on exam. JVD does not seem elevated. No significant leg swelling either. May remain oral diuretics for now. On the echocardiogram, there is evidence of significant LV dysfunction. It seems that his primary tool grinder operator had discussed about outpatient workup with stress testing but not pursued. Hence may need to consider that again as an outpatient. (4) NSVT (nonsustained ventricular tachycardia): Status: Acute Assessment and Plan: Very short runs of NSVT just a few beats. One slightly longer run which could be atrial fibrillation as there is variability in R-R intervals. This could all be from the recent pericardial window and the associated inflammation. He also has cardiomyopathy and unknown coronary status and they play a role as well. Recommendation would be to keep electrolytes optimal; continue beta-blockers. If he use amiodarone, there is a risk of the atrial fibrillation converting to sinus which will cause a stroke risk and hence will hold off on that for now unless there is a clearly prolonged run. (5) Delirium: Status: Acute Assessment and Plan: His confusion could be related to postoperative delirium. Per daughter, he does have some baseline dementia. Because of the recent surgery, anesthesia and the acute medical illness, that could be change in mental status. Based on the recent CT head, there is no evidence of stroke. Discussed about this with Dr. Mendez who will coordinate further care. Plan Discussed with daughter at length. Explained all the cardiac issues that are ongoing and she seems satisfied. Also discussed with Dr. Mendez. Total time spent including review of data, counseling, documentation, coordination of care-45 minutes. Time Spent With Patient Time: Total time managing care of this patient today ____ minutes. Progress Note: Quality Stroke Does the patient have a stroke diagnosis?: No Procedures Date of Service Date of Service: 12/27/23
[2023-12-27 12:00] VITALS: BP 129/72; PULSE 72; RESP 18; TEMP 36.3; O2SAT 93
[2023-12-27 16:00] VITALS: BP 123/68; PULSE 70; RESP 20; TEMP 36.6; O2SAT 95
--- NOTE | 2023-12-27 17:32 | P.CNNE_ITS ---
History of Present Illness Data of Consult Service Date: 12/27/23 Primary Care Provider: Diane Morales CNP [facility] Reason for consult: Confusion This is a 83yr old man with h/o etoh dependence, hfref, mild cognitive impairment, mood disorder, bph, gout, presented with about 1 month dizziness. On 12/05/23 , he was noted to be hypotensive at home 84/54, home lisinopril was stopped, but continued to feel off balance with difficulty walking. He notes more fatigue, napping longer and more frequently. He has worsening edema and falls and weakness came to ED. CT chest showed 3cm mod to large pericardial effusion. According to his daughter he has had fluctuating mental status with confusion to clarity since December 18. He has mild baseline dementia. CT scan of the head showed atrophy and microvascular white matter changes. Review of Systems 2 Review of Systems: Constitutional : No Weight loss, No Fever, No Chills, No Night Sweats, complaining of generalized weakness ENT/Mouth : No Hearing loss, No Ear Pain, No Nasal Congestion, No Sinus Pain, No Hoarseness, No sore throat, No Rhinorrhea, No Swallowing Difficulty Eyes: No Eye Pain, No Swelling, No Redness, No Foreign Body, No Discharge, No Vision Changes Cardiovascular : No Chest Pain, No SOB, complaining of acute on chronic shortness of breath, worse with exertion Respiratory : No Cough, No Sputum, No Wheezing, No Smoke Exposure, No Dyspnea Gastrointestinal : No Nausea, No Vomiting, No Diarrhea, No Constipation, No abdominal Pain, No Hematochezia, No Melena Genitourinary : no irregular bleeding, No Dysuria, No Urinary Frequency, No Hematuria, No Urinary Incontinence, No Urgency, No Flank Pain, No Urinary Flow Changes, No Hesitancy Musculoskeletal : No joint pain, No Myalgias, No Joint Swelling Skin : No Skin Lesions, No rash Neuro : No Weakness, No Numbness, No Paresthesias, No Loss of Consciousness, No Dizziness, No Headache Psych : No Anxiety/Panic, No Depression, No SI/HI/AH/VH, No Social Issues, Heme/Lymph: No Bruising, No Bleeding,No Lymphadenopathy Endocrine : No Polyuria, No Polydipsia, No Temperature Intolerance Yes all other systems are reviewed and are negative Constitutional: Constitutional: Reports as per HPI, Reports no additional constitutional complaints, Reports frequent falls, Reports lethargy and Reports poor appetite Eyes: Eyes: Reports as per HPI and Denies no additional eye complaints ENT: Denies system reviewed and no additional complaints, except as documented and Reports as per HPI Cardiovascular: Cardiovascular: Reports as per HPI, Reports no additional cardiovascular complaints, Denies acrocyanosis, Denies cool extremities, Denies chest pain, Denies leg edema, Denies lightheadedness, Denies Loss of Consciousness, Denies palpitations, Denies dyspnea, Reports dyspnea on exertion and Reports orthopnea Respiratory: Respiratory: Reports as per HPI, Denies no additional respiratory complaints, Denies dyspnea and Reports dyspnea on exertion Gastrointestinal: Gastrointestinal: Reports as per HPI and Denies no additional gastrointestinal complaints Genitourinary: Genitourinary: Reports no additional male genitourinary complaints and Reports as per HPI Musculoskeletal: Musculoskeletal: Reports no additional musculoskeletal complaints and Reports as per HPI Integumentary/Breasts: Skin/Breast: Reports system reviewed and no additional complaints, except as docu Neurologic: Reports system reviewed and no additional complaints, except as documented, Reports as per HPI, Reports confusion and Reports frequent falls Psychiatric: Psychiatric: Reports no additional psychiatric complaints, Reports as per HPI and Reports confusion Endocrine: Endocrine: Reports no additional endocrine complaints, Reports as per HPI and Denies palpitations Hematologic/Lymphatic: Hematologic/Lymphatic: Reports no additional hematologic/lymphatic complaints and Reports as per HPI Allergic/Immunologic: Allergic/Immunologic: Reports no additional allergic/immunologic complaints and Reports as per HPI [facility] Past Medical History Medical History (Updated 12/27/23 @ 10:55 by Claudio Foster MD) COPD (chronic obstructive pulmonary disease) CHF (congestive heart failure) Graves disease Hypertension Vertigo Dizziness Surgical History Surgical History (Updated 12/22/23 @ 10:42 by Latonia Houston RN) No pertinent past surgical history H/O endoscopy H/O colonoscopy Social History Social History Household Members: None Housing: House Do you presently have visiting nurse or other home services: No Alcohol intake: former Patient Tobacco Use Status: Former Tobacco user Tobacco use type: Cigarette Years Smoked: 30 e-Cigarette/Vaping Use: Never Used Second Hand Smoke Exposure: No Advance Directives Date on File: 03/08/23 service: Yes Meds Allergies Allergy/AdvReac Type Severity Reaction Status Date / Time No Known Allergies Allergy Verified 12/22/23 10:42 Active Medications: Current Medications Allopurinol (Allopurinol 300 Mg Tablet) 300 mg PO DAILY [facility] Last Admin: 12/27/23 07:51 Dose: 300 mg Apixaban (Apixaban 5 Mg Tablet) 5 mg PO BID [facility] Last Admin: 12/27/23 07:51 Dose: 5 mg Digoxin (Digoxin 0.125 Mg Tablet) 0.125 mg PO DAILY [facility] Last Admin: 12/27/23 07:50 Dose: 0.125 mg Docusate Sodium (Docusate Sodium 100 Mg Capsule) 200 mg PO DAILY [facility] Last Admin: 12/27/23 07:51 Dose: 200 mg Furosemide (Furosemide 20 Mg Tablet) 20 mg PO BID@0900,1800 [facility]; Protocol Last Admin: 12/27/23 17:16 Dose: 20 mg Metoprolol Succinate (Metoprolol Succinate Er 50 Mg Tab.Er.24h) 50 mg PO DAILY [facility]; Protocol Last Admin: 12/27/23 07:51 Dose: 50 mg Omeprazole (Omeprazole/Na Bicarb Oral Susp 20 Mg/10 Ml Ud Cup) 20 mg PO BID@0630,1630 PRN PRN Reason: Heartburn Last Admin: 12/23/23 09:46 Dose: 20 mg Sertraline HCl (Sertraline Hcl 50 Mg Tablet) 150 mg PO DAILY [facility] Last Admin: 12/27/23 07:50 Dose: 150 mg Sodium Chloride (0.9 % Sodium Chloride Flush 3 Ml Syringe) 3 ml IVFLUSH QSHIFT [facility] Last Admin: 12/27/23 17:16 Dose: 3 ml Valsartan (Valsartan 40 Mg Tablet) 40 mg PO BID [facility]; Protocol Last Admin: 12/27/23 07:51 Dose: 40 mg Home Medications ?Medication ?Instructions ?Recorded ?Confirmed ?Last Taken ?Type allopurinol 300 mg tablet 300 mg PO DAILY 03/01/23 12/22/23 12/20/23 History omeprazole 20 mg capsule,delayed 20 mg PO BID PRN Heart Burn 03/01/23 12/22/23 12/20/23 History release sertraline 100 mg tablet 150 mg PO DAILY 12/22/23 12/22/23 12/20/23 History Physical Exam 2 Vital Signs: Vital Signs: Last Vital Signs Temp 97.9 F 12/27/23 16:00 Pulse 70 12/27/23 16:00 Resp 20 12/27/23 16:00 BP 123/68 12/27/23 16:00 Pulse Ox 95 12/27/23 16:00 O2 Del Method Room Air 12/27/23 16:00 O2 Flow Rate 2 12/25/23 03:13 FiO2 30 12/22/23 21:00 Oxygen Flow Rate 4 12/22/23 18:00 BMI result Body Mass Index 30.5 Const: Other: General: AO X 2, no acute distress Resp: CTA bilateral, non laboed CVS: S1,S2, iregular irregular GI: +BS, NT, no distention Skin: No rash Neuro: motor grossly intact Psych: appropriate affect General: cooperative, comfortable, no acute distress, in distress respiratory, confusion, lethargic and tired appearing Nutritional Appearance: overweight Orientation/consciousness: No patient oriented x3, confusion and lethargic Limitations: No language barrier HEENT: Other: Unremarkable Head: Yes normal to inspection, Yes normocephalic and Yes atraumatic Neck: Neck: Yes normal visual inspection, Yes trachea midline, Yes supple and Yes JVD Chest: Other: subxiphoid bandage is clean, dry and intact. Appropriate tenderness with palpation around incision. Chest palpation & inspection: normal inspection of the chest and other Resp: Other: Minimal crackles at bases Effort & Inspection: able to speak in complete sentences, decreased respiratory effort and other (appears mildly short of breath) Auscultation: c lear to auscultation bilaterally, no rales, wheezes and diminished lung sounds Cardio: Other: Dressings on pericardial window site is dry Jugular venous distension: JVD Palpation: normal PMI Rate: regular rate and tachycardic Rhythm: abnormal rhythm irregularly irregular Heart sounds: S1 normal heart sound present, S2 normal heart sound present, no click, no gallops, no murmurs and no rubs GI: Other: Abdomen corpulent, soft, benign Inspection: Yes normal to inspection Palpation (GI): Soft to palpation, not firm and nontender Auscultation: normal bowel sounds Back/Spine/Pelvis: Other: unremarkable Skin: General skin exam: no rashes or lesions noted Neuro: Other: He is alert, oriented x3 except he thought he was in a hospital in [place]. He follows commands. His exam is nonfocal. He has a few beats of asterixis of his extended upper extremities,, deep tendon reflexes are hypoactive and plantar response are flexor. General: No patient oriented x3, no focal motor deficits and confusion Extrem: General: Yes normal to inspection, No clubbing, No cyanosis and Yes edema Psych: Mental Status: mental status grossly abnormal Results Labs 12/27/23 06:25 12/27/23 06:25 Labs: Short CBC 12/27/23 Range/Units 06:25 WBC 9.8 (4.8-10.8) X10*3/uL Hgb 13.5 L (14.0-18.0) g/dl Hct 39.9 L (42.0-52.0) % Plt Count 287 (160-400) X10*3/uL BMP 12/27/23 06:25 Sodium 139 Potassium 3.4 Chloride 104 Carbon Dioxide 22 BUN 26 H Creatinine 0.81 Calcium 8.6 D Microbiology Microbiology Results: Microbiology 12/22/23 13:43 Pericardial Fluid Gram Stain - Final 12/22/23 13:43 Pericardial Fluid Routine Culture - Final No growth after 2 days 12/22/23 13:43 Pericardial Fluid Anaerobic Culture - Final NO GROWTH AFTER 5 DAYS 12/22/23 04:03 Blood - Venous Blood Culture - Final No growth after 5 days. 12/22/23 04:03 Blood - Venous Blood Culture - Final No growth after 5 days. 12/22/23 13:43 Pericardial Fluid Fungal Identification - Preliminary No growth to date. Assessment and Plan (1) Delirium: Status: Acute Fluctuating encephalopathy possibly related to hypoxemia. Rule out obstructive sleep apnea. No other obvious metabolic abnormalities at this time. Neurological examination is nonfocal. He has mild baseline dementia as per daughter. Recommendations: EEG. Check sedimentation rate and CRP, which was elevated recently, TSH with T4 reflex. Check B12, folate and thiamine levels. Plan Patient is s/p pericardial window and drainage due to large pericardial effusion causing cardiac tamponade Still appears mildly short of breath but this is not unexpected given concurrent CHF Drain removed on 12/23/23. Bandage is clean, dry and intact. Pain well managed. Continue care per hospitalist and cardiology Procedures Date of Service Date of Service: 12/27/23
[2023-12-27 19:15] VITALS: BP 101/51; PULSE 78; RESP 20; TEMP 36.3; O2SAT 94
[2023-12-28] VITALS (7 sets, daily range): BP systolic 97–157; BP diastolic 61–87; PULSE 60–72; RESP 16–20; TEMP 36–37.2; O2SAT 93–96; BMI 29.9
[2023-12-28 06:23] LABS: MANUAL DIFF FLAG NO
[2023-12-28 06:41] LABS: Basophils Absolute Auto 0.1 X10*3/uL (0.0-0.2); Basophils Percent Auto 0.5 % (0-2); Eosinophils Absolute Auto 0.1 X10*3/uL (0.0-0.4); Eosinophils Percent Auto 1.4 % (0-4); Hemoglobin 12.5 g/dl (14.0-18.0); Imm Gran Abs Auto 0.21 X10*3/uL (0.00-0.03); Imm Gran Pct Auto 2.2 % (0.0-0.4); Lymphocytes Absolute Auto 0.8 X10*3/uL (1.2-4.9); Lymphocytes Percent Auto 7.8 % (20-40); Mean Corpuscular HGB Conc 34.7 g/dl (31.0-36.0); Mean Corpuscular Hemoglobin 30.9 pg (27.0-33.0); Mean Corpuscular Volume 88.9 fL (80.0-98.0); Mean Platelet Volume 10.6 fL (9.4-12.4); Monocytes Absolute Auto 0.9 X10*3/uL (0.1-1.2); Monocytes Percent Auto 9.6 % (2-11); Neutrophils Absolute Auto 7.7 x10*3/uL (2.0-8.3); Neutrophils Percent Auto 78.5 % (45-73); Platelet Count 264 X10*3/uL (160-400); Red Blood Count 4.05 X10*6/uL (4.60-5.80); Red Cell Distribution Width 14.1 % (11.0-16.0); White Blood Count 9.8 X10*3/uL (4.8-10.8)
[2023-12-28 06:50] LABS: Anion Gap 8 (12-20); Blood Urea Nitrogen 24 mg/dL (9-16); Calcium 7.5 mg/dL (8.4-10.2); Carbon Dioxide 31 mmol/L (22-29); Chloride 104 mmol/L (96-108); Creatinine Clr Calc Pharmacy 73.6; Estimated Glomerular Filt Rate > 60; Glucose Random 121 mg/dL (60-115); Phosphorus 2.8 mg/dL (2.7-4.5); Potassium 3.2 mmol/L (3.3-5.1); Sodium 140 mmol/L (135-145)
--- NOTE | 2023-12-28 07:00 | CA_ITS ---
Transthoracic Echocardiogram Patient (Last, First, Middle): Albert Tristan N Gender: Male Date of : 1940 Age: 83 Procedure Date: 12/28/2023 Procedure Type: Transthoracic Echocardiogram Location: [facility] [place] Height: 170.18 cm Weight: 88. kg BSA: 2.00 m2 Heart Rate: 64 bpm BP: 129 / 72 mmHg Safety Deposit Clerk: SB Referring MD: Jairo Mendez MD Symptoms: follow up pericardial effusion Study Quality: Fair ECG Rhythm: Atrial Fibrillation Conclusions: - No significant pericardial effusion noted. - LVEF difficult to assess, probably about 40%. Findings Left Ventricle LVEF difficult to assess, probably about 40%. Venous The inferior vena cava is normal in size and collapses less than 50% with inspiration. Pericardium/Pleural No significant pericardial effusion noted. Prior Study Comparison No significant change compared to prior study dated: 12/23/2023. Measurements 2D Linear Measurements LVIDd: 5.09 3.9-5.3/4.2-5.9 cm LVIDd Index: 2.55 2.4-3.2/2.2-3.1 cm/m2 LVIDs: 3.90 2.0-3.6 cm Tricuspid Valve RA Press: 8.00 Updated in Other Vendor System with Status of Final Claudio Foster MD electronically signed on 12/28/2023 11:33:26 AM with status of Final
[2023-12-28] MEDS: allopurinoL 300 MG TABLET PO (08:20)
[2023-12-28] MEDS: Digoxin 0.125 MG TABLET PO (08:20)
[2023-12-28] MEDS: Docusate Sodium 100 MG CAPSULE 200 MG PO (08:20)
[2023-12-28] MEDS: 0.9 % Sodium Chloride Flush 3 ML SYRINGE IVFLUSH ×4 (08:21→19:56)
[2023-12-28] MEDS: Furosemide 20 MG TABLET PO ×2 (08:21→17:49)
[2023-12-28] MEDS: Sertraline HCL 50 MG TABLET 150 MG PO (08:21)
[2023-12-28] MEDS: Valsartan 40 MG TABLET PO ×2 (08:21→19:56)
[2023-12-28] MEDS: Metoprolol Succinate ER 50 MG TAB.ER.24H PO (08:21)
[2023-12-28] MEDS: Apixaban 5 MG TABLET PO ×2 (08:21→19:56)
[2023-12-28 10:04] LABS: Erythrocyte Sedimentation Rate 6 MM/HR (0-15)
[2023-12-28 10:31] LABS: TSH reflex Free T4 2.01 uIU/mL (0.32-4.0)
[2023-12-28] MEDS: Potassium Chloride ER 20 MEQ TAB.ER.PRT 40 MEQ PO (10:34)
--- NOTE | 2023-12-28 10:57 | PM.PNCARD ---
Subjective Subjective Date of Service: 12/28/23 Principal diagnosis: CHF, pericardial tamponade, atrial flutter. Interval history: He seems better today. He is actually sitting in a chair and eating breakfast. No complaints like angina or shortness of breath. Daughter is also the bedside. Review of Systems Review of Systems Yes all other systems are reviewed and are negative Constitutional: Reports as per HPI and Reports no additional constitutional complaints Eyes: Reports as per HPI and Denies no additional eye complaints Denies system reviewed and no additional complaints, except as documented and Reports as per HPI Cardiovascular: Reports as per HPI, Reports no additional cardiovascular complaints, Denies acrocyanosis, Denies cool extremities, Denies chest pain, Denies leg edema, Denies lightheadedness, Denies palpitations and Denies dyspnea Respiratory: Reports as per HPI, Denies no additional respiratory complaints and Denies dyspnea Gastrointestinal: Reports as per HPI and Denies no additional gastrointestinal complaints Genitourinary: Reports no additional male genitourinary complaints and Reports as per HPI Musculoskeletal: Reports no additional musculoskeletal complaints and Reports as per HPI Skin/Breast: Reports system reviewed and no additional complaints, except as docu Reports system reviewed and no additional complaints, except as documented and Reports as per HPI Psychiatric: Reports no additional psychiatric complaints and Reports as per HPI Endocrine: Reports no additional endocrine complaints, Reports as per HPI and Denies palpitations Hematologic/Lymphatic: Reports no additional hematologic/lymphatic complaints and Reports as per HPI Allergic/Immunologic: Reports no additional allergic/immunologic complaints and Reports as per HPI Physical Exam Vital Signs: Last Vital Signs Temp 97.3 F 12/28/23 07:24 Pulse 70 12/28/23 07:24 Resp 18 12/28/23 07:24 BP 157/87 H 12/28/23 07:24 Pulse Ox 96 12/28/23 07:24 O2 Del Method Room Air 12/28/23 07:24 O2 Flow Rate 2 12/25/23 03:13 FiO2 30 12/22/23 21:00 Oxygen Flow Rate 4 12/22/23 18:00 BMI result Body Mass Index 29.9 Const Other: Seems a bit more alert today. Sitting in chair and having breakfast. General: comfortable and no acute distress HEENT Other: Unremarkable Head: Yes normal to inspection Neck Neck: Yes normal visual inspection Chest Chest palpation & inspection: normal inspection of the chest Resp Other: Minimal crackles at bases Cardio Palpation: normal PMI Heart sounds: S1 normal heart sound present, S2 normal heart sound present, no gallops, no murmurs and no rubs GI Palpation (GI): Soft to palpation Back/Spine/Pelvis Other: unremarkable Skin General skin exam: no rashes or lesions noted Extrem General: Yes normal to inspection Psych Mental Status: mental status grossly normal Objective Labs and Meds 12/28/23 06:11 12/28/23 06:11 Lab results: Laboratory Results - last 24 hr 12/28/23 12/28/23 06:11 06:21 WBC 9.8 RBC 4.05 L Hgb 12.5 L Hct 36.0 L MCV 88.9 MCH 30.9 MCHC 34.7 RDW 14.1 Plt Count 264 MPV 10.6 Immature Gran % (Auto) 2.2 H Neut % (Auto) 78.5 H Lymph % (Auto) 7.[address] [place] % (Auto) 9.6 Eos % (Auto) 1.4 Baso % (Auto) 0.5 Lymph # (Auto) 0.[address] # (Auto) 0.9 Eos # (Auto) 0.1 Baso # (Auto) 0.1 Abs Immat Gran (auto) 0.21 H Absolute Neuts (auto) 7.7 Absolute Nucleated RBC 0.000 Nucleated RBC % (auto) 0.0 ESR 6 Sodium 140 Potassium 3.2 L Chloride 104 Carbon Dioxide 31 H Anion Gap 8 L BUN 24 H Creatinine 0.77 Estim Creat Clear Calc 73.6 Estimated GFR > 60 Random Glucose 121 H Calcium 7.5 L D Phosphorus 2.8 Magnesium 2.0 C-Reactive Protein 3.00 H TSH 2.01 Imaging Radiologist's impression: Impressions Head CT 12/27/23 13:35 IMPRESSION: No acute intracranial abnormalities. Sequela of microangiopathy and global volume loss Progress Note: A&P Assessment and plan (1) Pericardial tamponade: Status: Acute Assessment and Plan: Status post drainage. Follow-up echocardiogram reported to have small pericardial effusion. She is due for another echocardiogram today. (2) Atrial fibrillation: Status: Acute Assessment and Plan: Overall, rate seems fairly controlled on telemetry. Do not see any obviously rapid rates. Continue current meds including beta-blockers, digoxin, anticoagulation. (3) Acute CHF: Status: Acute Assessment and Plan: Cardiac BNP is on the higher side but he does not seem to have any overt heart failure on exam. JVD does not seem elevated. No significant leg swelling either. May remain oral diuretics for now. On the echocardiogram, there is evidence of significant LV dysfunction. It seems that his primary application design engineer had discussed about outpatient workup with stress testing but not pursued. Hence may need to consider that again as an outpatient. (4) NSVT (nonsustained ventricular tachycardia): Status: Acute Assessment and Plan: Overnight, about a 5 beat run of NSVT. Could be related to recent pericardial window/inflammation. Also has known cardiomyopathy and unknown coronary status. Plan would be to continue beta-blockers. Keep electrolytes optimal. Hold off amiodarone as there is the risk of converting atrial fibrillation sinus which could contribute to stroke. Do not see any prolonged runs. (5) Delirium: Status: Acute Assessment and Plan: Seems improved. Neurology consult noted. He has had a repeat CT scan which is not showing any acute changes. Plan Discussed with daughter at length. She seems satisfied with the care offered. Also discussed with Dr. Mendez. Informed Dr. Bob, primary application design engineer per daughter's request. Requested outpatient appointments soon. Time Spent With Patient Time: Total time managing care of this patient today ____ minutes. Progress Note: Quality Stroke Does the patient have a stroke diagnosis?: No Procedures Date of Service Date of Service: 12/28/23
--- NOTE | 2023-12-28 11:15 | PC.NURSE ---
8 beats vtach , no symptoms,DR Mendez was notified
[2023-12-28 11:24] LABS: Folate 8.5 ng/mL (> or = 4.0); Vitamin B12 445 pg/mL (200-900)
--- NOTE | 2023-12-28 12:16 | PC.NURSE ---
pt was up in tne recliner this am for breakfast , tolerated well. He is refusing to get up from the bed for lunch
--- NOTE | 2023-12-28 14:14 | P.PNIM_ITS ---
Subjective Subjective Date of Service: 12/28/23 Interval History: Doing well, no agiation, periodic forgetfullness oriented to self place and time and person Physical Exam 2 Vital Signs: Vital Signs: Last Vital Signs Temp 97.6 F 12/28/23 11:24 Pulse 60 12/28/23 11:24 Resp 18 12/28/23 11:24 BP 100/64 12/28/23 11:24 Pulse Ox 96 12/28/23 11:24 O2 Del Method Room Air 12/28/23 11:24 O2 Flow Rate 2 12/25/23 03:13 FiO2 30 12/22/23 21:00 Oxygen Flow Rate 4 12/22/23 18:00 BMI result Body Mass Index 29.9 Const: Other: General: AO X 3, no acute distress Resp: CTA bilateral, non laboed CVS: S1,S2, iregular irregular GI: +BS, NT, no distention Skin: No rash Neuro: motor grossly intact Psych: appropriate affect Objective Data Active Medications Allopurinol (Allopurinol 300 Mg Tablet) 300 mg PO DAILY [facility] Last Admin: 12/28/23 08:20 Dose: 300 mg Documented By: KELLY Apixaban (Apixaban 5 Mg Tablet) 5 mg PO BID [facility] Last Admin: 12/28/23 08:21 Dose: 5 mg Documented By: KELLY Digoxin (Digoxin 0.125 Mg Tablet) 0.125 mg PO DAILY [facility] Last Admin: 12/28/23 08:20 Dose: 0.125 mg Documented By: KELLY Docusate Sodium (Docusate Sodium 100 Mg Capsule) 200 mg PO DAILY [facility] Last Admin: 12/28/23 08:20 Dose: 200 mg Documented By: KELLY Furosemide (Furosemide 20 Mg Tablet) 20 mg PO BID@0900,1800 [facility]; Protocol Last Admin: 12/28/23 08:21 Dose: 20 mg Documented By: KELLY Metoprolol Succinate (Metoprolol Succinate Er 50 Mg Tab.Er.24h) 50 mg PO DAILY [facility]; Protocol Last Admin: 12/28/23 08:21 Dose: 50 mg Documented By: KELLY Omeprazole (Omeprazole/Na Bicarb Oral Susp 20 Mg/10 Ml Ud Cup) 20 mg PO BID@0630,1630 PRN PRN Reason: Heartburn Last Admin: 12/23/23 09:46 Dose: 20 mg Documented By: ANTIONE Sertraline HCl (Sertraline Hcl 50 Mg Tablet) 150 mg PO DAILY [facility] Last Admin: 12/28/23 08:21 Dose: 150 mg Documented By: KELLY Sodium Chloride (0.9 % Sodium Chloride Flush 3 Ml Syringe) 3 ml IVFLUSH QSHIFT [facility] Last Admin: 12/28/23 08:21 Dose: 3 ml Documented By: KELLY Valsartan (Valsartan 40 Mg Tablet) 40 mg PO BID [facility]; Protocol Last Admin: 12/28/23 08:21 Dose: 40 mg Documented By: KELLY Labs 12/28/23 06:11 12/28/23 06:11 Labs: Laboratory Results - last 24 hr 12/28/23 12/28/23 12/28/23 06:11 06:21 10:16 MCV 88.9 MCH 30.9 MCHC 34.7 RDW 14.1 Plt Count 264 MPV 10.6 Immature Gran % (Auto) 2.2 H Neut % (Auto) 78.5 H Lymph % (Auto) 7.8 L [place] % (Auto) 9.6 Eos % (Auto) 1.4 Baso % (Auto) 0.5 Lymph # (Auto) 0.8 L [place] # (Auto) 0.9 Eos # (Auto) 0.1 Baso # (Auto) 0.1 Abs Immat Gran (auto) 0.21 H Absolute Neuts (auto) 7.7 Absolute Nucleated RBC 0.000 Nucleated RBC % (auto) 0.0 ESR 6 Anion Gap 8 L Estim Creat Clear Calc 73.6 Estimated GFR > 60 Random Glucose 121 H Calcium 7.5 L D Phosphorus 2.8 Magnesium 2.0 C-Reactive Protein 3.00 H Vitamin B12 445 Folate 8.5 TSH 2.01 Assessment and Plan (1) Pericardial effusion: Status: Acute Plan 83yo M with HFrEF, MCI, mood disorder, BPH, gout presenting with 1 mo dizziness + hypotension, found to have pericardial effusion with early tamponade pericardial effusion with early tamponade - s/p pericardial window 12/20 and observed in ICU overnight; drain pulled 12/22; bloody fluid with no evidence of bacterial infection; pericardial fluid cytology pending, last echo 12/27, no change from 12/22, small effusion acute-chronic HFrEF - appears euvolemic; continue PO furosemide; Cardiology following; started valsartan; continue metoprolol hypoK - replete IV/PO; recheck BMP in AM atrial flutter with RVR - now rate-controlled; metoprolol succinate + digoxin (check level in am); started Eliquis 12/23 after cleared by Thoracic Surgery pneumonia - on cefepime 12/22-12/25; BCx neg; Prolactin low AHRF--resolved, Off O2 Confusion--likely hospital delirium, monitor avoid thinks that will make it worse. -ct head low volume, Neuro rec b12, folate,tsh normal. CRP 3, ESR nl. EEG pending Thyroid nodule--US to further eval gout - allopurinol HTN - valsartan + metoprolol as above mood disorder - sertraline VTE ppx - started apixaban dispo - PT eval: STR placement, agreable need for inpt: awaiting short term placement Total time managing care of this patient today: 40 minutes. Quality Stroke Does the patient have a stroke diagnosis?: No VTE Prior VTE?: No VTE Risk Level:: Medical - moderate - high VTE Device Contraindication: N/A - Device Ordered VTE Drug Contraindication: Treatment Not Tolerated
--- NOTE | 2023-12-28 16:12 | P.CDIM_ITS ---
PROVIDER RESPONSE TEXT: To clarify, the appropriate diagnosis supported by the clinical indicators: Hypocalcemia: hypokalcemia QUERY TEXT: PHYSICIAN'S DOCUMENTATION REQUEST Date of Query: 12/28/2023 12:23 PM EDT Patient Name: LAYO EATON Admit Date: 12/22/2023 Dear Jairo Mendez MD, A review of the medical record indicates additional documentation may be needed. Please review below and update the documentation accordingly. Clinical Indicators: LABS: calcium 8.6 7.5 L Based on the above, is there a diagnosis that correlates with these lab findings: Hypocalcemia resolved, possible, probable etc. Labs indicate a diagnosis of (please specify) Other (explain) Clinically unable to determine (explain) Thank you, Mona Loving, CCS, CDIS Use of terms such as suspected, likely, concern for, or probable (associated with a specific diagnosi s that is being evaluated, monitored, or treated as if it exists) are acceptable and can be coded in the inpatient se tting, when documented at the time of discharge. Please use your independent medical judgment in providing your response. THIS QUERY IS PART OF THE PERMANENT MEDICAL RECORD
--- NOTE | 2023-12-29 | EEG_ITS ---
FINDINGS: The waking background activity consists of a diffuse low-voltage 6 to 7 hertz theta intermixed with low voltage fast frequencies anteriorly. Photic stimulation is without activation. No paroxysmal features are identified. Hyperventilation was omitted. IMPRESSION: This EEG is considered mildly abnormal due to mild diffuse background slowing consistent with a mild encephalopathic process. MD WERO Obrien/KJ / [phone]
[2023-12-29 03:18] VITALS: BP 137/67; PULSE 53; RESP 18; TEMP 36.8; O2SAT 95
[2023-12-29 06:16] LABS: MANUAL DIFF FLAG NO
[2023-12-29 06:23] LABS: Basophils Percent Auto 0.4 % (0-2); Eosinophils Absolute Auto 0.1 X10*3/uL (0.0-0.4); Eosinophils Percent Auto 1.1 % (0-4); Hematocrit 36.6 % (42.0-52.0); Hemoglobin 12.3 g/dl (14.0-18.0); Imm Gran Abs Auto 0.23 X10*3/uL (0.00-0.03); Imm Gran Pct Auto 2.2 % (0.0-0.4); Lymphocytes Absolute Auto 0.8 X10*3/uL (1.2-4.9); Lymphocytes Percent Auto 7.5 % (20-40); Mean Corpuscular HGB Conc 33.6 g/dl (31.0-36.0); Mean Corpuscular Hemoglobin 30.2 pg (27.0-33.0); Mean Corpuscular Volume 89.9 fL (80.0-98.0); Mean Platelet Volume 10.6 fL (9.4-12.4); Monocytes Absolute Auto 0.9 X10*3/uL (0.1-1.2); Monocytes Percent Auto 8.7 % (2-11); Neutrophils Absolute Auto 8.6 x10*3/uL (2.0-8.3); Neutrophils Percent Auto 80.1 % (45-73); Platelet Count 250 X10*3/uL (160-400); Red Blood Count 4.07 X10*6/uL (4.60-5.80); Red Cell Distribution Width 14.2 % (11.0-16.0); White Blood Count 10.7 X10*3/uL (4.8-10.8)
[2023-12-29 06:34] VITALS: BP 132/60; PULSE 63; RESP 18; TEMP 36.6; O2SAT 97
[2023-12-29 06:46] LABS: Anion Gap 11 (12-20); Blood Urea Nitrogen 30 mg/dL (9-16); Calcium 8.3 mg/dL (8.4-10.2); Carbon Dioxide 28 mmol/L (22-29); Chloride 105 mmol/L (96-108); Creatinine Clr Calc Pharmacy 67.6; Estimated Glomerular Filt Rate > 60; Glucose Random 120 mg/dL (60-115); Magnesium 2.1 mg/dL (1.6-2.6); Phosphorus 2.7 mg/dL (2.7-4.5); Potassium 3.4 mmol/L (3.3-5.1); Sodium 141 mmol/L (135-145)
[2023-12-29 07:31] VITALS: BP 146/71; PULSE 73; RESP 18; TEMP 36.7; O2SAT 93
[2023-12-29] MEDS: allopurinoL 300 MG TABLET PO (08:02)
[2023-12-29] MEDS: Apixaban 5 MG TABLET PO (08:02)
[2023-12-29] MEDS: Digoxin 0.125 MG TABLET PO (08:03)
[2023-12-29] MEDS: Metoprolol Succinate ER 50 MG TAB.ER.24H PO (08:03)
[2023-12-29] MEDS: Docusate Sodium 100 MG CAPSULE 200 MG PO (08:03)
[2023-12-29] MEDS: Valsartan 40 MG TABLET PO (08:03)
[2023-12-29] MEDS: Sertraline HCL 50 MG TABLET 150 MG PO (08:03)
[2023-12-29] MEDS: 0.9 % Sodium Chloride Flush 3 ML SYRINGE IVFLUSH ×2 (08:04→16:26)
[2023-12-29 13:44] VITALS: BP 146/71; PULSE 73; O2SAT 93
--- NOTE | 2023-12-29 15:29 | MHC.CM.PN ---
Second IMM 12/29/23, Pt has been medically cleared for DC, he will go to [facility] today via BLS.
[2023-12-29 16:00] VITALS: BP 120/64; PULSE 80; RESP 18; TEMP 36.6
== END 2023-12-29 17:57 | disposition skilled nursing facility (03) | DRG 270 ==
LOC: HO.ED 12-22 03:53 → HO.EDOVER 12-22 05:31 → HO.ICU 12-22 14:45 → HO.IMC 12-23 10:05
PROVIDERS: Family Medicine; Internal Medicine Critical Care Medicine; Physician Assistant Medical; Surgery; Admitting Provider Internal Medicine; Emergency Provider Emergency Medicine; PCP Nurse Practitioner Family; Referring Provider Internal Medicine Endocrinology, Diabetes & Metabolism; Visit Provider Internal Medicine
PROC: 0W9D00Z Drainage of Pericardial Cavity with Drainage Device, Open Approach (ICD-10-PCS; CPT 33025; principal; 2023-12-22 12:10)
DX: I31.39 Other pericardial effusion (noninflammatory) (principal); I50.23 Acute on chronic systolic (congestive) heart failure; J18.9 Pneumonia, unspecified organism; J96.01 Acute respiratory failure with hypoxia; J91.8 Pleural effusion in other conditions classified elsewhere; F05 Delirium due to known physiological condition; I31.4 Cardiac tamponade; E87.6 Hypokalemia; I48.91 Unspecified atrial fibrillation; I11.0 Hypertensive heart disease with heart failure; M10.9 Gout, unspecified; F10.21 Alcohol dependence, in remission; G31.84 Mild cognitive impairment of uncertain or unknown etiology; K21.9 Gastro-esophageal reflux disease without esophagitis; F41.9 Anxiety disorder, unspecified; Z20.822 Contact with and (suspected) exposure to COVID-19; Z79.899 Other long term (current) drug therapy
CPT/HCPCS: 0241U; 36415; 70450; 71045; 71046; 71260; 76536; 80048; 80053; 81001; 82042; 82607; 82746; 82803; 82945; 83605; 83690; 83735; 83880; 84100; 84145; 84157; 84443; 84484; 85025; 85027; 85610; 85652; 86140; 87040; 87070; 87073; 87102; 87116; 87205; 87206; 88112; 88304; 88305; 88341; 88342; 89051; 93005; 93306; 93308; 94660; 95816; 97116; 97162; 97530; 99285; A4338; C1758; J0131; J0690; J0692; J1100; J1160; J1920; J1940; J2250; J2405; J2704; J2795; J3010; J3480; J7120; Q9957; Q9967

== ENCOUNTER → 2023-12-21 20:42 | Outpatient (BNV) | payer MEDICARE, SELFPAY | PROVIDERS: Admitting Provider Internal Medicine; Emergency Provider Emergency Medicine; PCP Nurse Practitioner Family; Visit Provider Internal Medicine Cardiovascular Disease | DX: R94.31 Abnormal electrocardiogram [ECG] [EKG] (principal) | CPT/HCPCS: 93010 ==

== ENCOUNTER 2023-12-22 05:23 | Outpatient (BNV) | payer MEDICARE, SELFPAY | END 2023-12-23 11:00 | PROVIDERS: Admitting Provider Internal Medicine; Emergency Provider Emergency Medicine; PCP Nurse Practitioner Family; Visit Provider Internal Medicine Cardiovascular Disease | DX: I31.39 Other pericardial effusion (noninflammatory) (principal); I48.91 Unspecified atrial fibrillation | CPT/HCPCS: 93308 ==

== ENCOUNTER 2023-12-22 05:23 | Outpatient (BNV) | payer MEDICARE, SELFPAY | END 2023-12-28 07:00 | PROVIDERS: Admitting Provider Internal Medicine; Emergency Provider Emergency Medicine; PCP Nurse Practitioner Family; Visit Provider Internal Medicine | DX: I31.39 Other pericardial effusion (noninflammatory) (principal); I48.91 Unspecified atrial fibrillation | CPT/HCPCS: 93308 ==

== ENCOUNTER → 2023-12-22 05:23 | Outpatient (BNV) | payer MEDICARE, SELFPAY | PROVIDERS: Admitting Provider Internal Medicine; Emergency Provider Emergency Medicine; PCP Nurse Practitioner Family; Visit Provider Psychiatry & Neurology Neurology | DX: R41.0 Disorientation, unspecified (principal); F03.A0 Unspecified dementia, mild, without behavioral disturbance, psychotic disturbance, mood disturbance, and anxiety | CPT/HCPCS: 99222 ==

== ENCOUNTER → 2023-12-22 05:23 | Outpatient (BNV) | payer MEDICARE, SELFPAY | PROVIDERS: Admitting Provider Internal Medicine; Emergency Provider Emergency Medicine; PCP Nurse Practitioner Family; Visit Provider Internal Medicine Cardiovascular Disease | DX: I31.4 Cardiac tamponade (principal); I50.9 Heart failure, unspecified; I48.91 Unspecified atrial fibrillation | CPT/HCPCS: 93010; 93306; 99223; 99233 ==

== ENCOUNTER → 2023-12-22 05:23 | Outpatient (BNV) | payer MEDICARE, SELFPAY | PROVIDERS: Admitting Provider Internal Medicine; Emergency Provider Emergency Medicine; PCP Nurse Practitioner Family; Visit Provider Internal Medicine | DX: I31.39 Other pericardial effusion (noninflammatory) (principal) | CPT/HCPCS: 99223; 99232; 99233; 99239; 99499 ==

== ENCOUNTER 2024-01-19 15:11 | Inpatient (IN) | payer OTHER, SELFPAY ==
--- NOTE | ~2024-01-19 | US_ITS ---
PROCEDURE: Ultrasound-guided right thoracentesis History: Right pleural effusion Specimen: A sample of pleural fluid was sent for analysis Access: 5 [place] Yueh catheter Medications: 10 mL 1% lidocaine TECHNIQUE/FINDINGS Appropriate preprocedural clinical history and imaging studies were reviewed. The patient was brought to the department and placed in the seated position. Ultrasound images of the right thorax were obtained to localize a moderate pleural effusion. Permanent ultrasound images were saved. Risks and benefits and possible complications were discussed with the patient and consent form was signed. An area of the patient's right back was prepped and draped in usual sterile fashion. 10 mL of 1% lidocaine was used to obtain local anesthesia of the skin and deeper tissues. A standard small bore needle was introduced to sample pleural fluid and demonstrate a safe access route. A 5 [place] Yueh catheter was then used to access the pleural cavity. 700 ml of yellow fluid was removed passively. The catheter was then removed. A dressing was applied. A postprocedure chest x-ray will be performed and will be dictated separately. There were no immediate complications. The procedure was performed by Bro Garcia PA-C and supervised by Dr. Pascal US/US thoracentesis Impression: Ultrasound-guided right thoracentesis Electronically signed by: Enio Gonzalez MD 02/07/2024 02:38 PM EDT
--- NOTE | ~2024-01-19 | CT_ITS ---
EXAMINATION: CT ABDOMEN AND PELVIS WITHOUT CONTRAST CLINICAL INFORMATION: Decreased PO intake, weight loss, R O malignancy COMPARISON: CT abdomen and pelvis April 28, 2011. Ultrasound of abdomen June 25, 2015. TECHNIQUE: Multidetector volumetric imaging was performed from the superior aspect of the liver through the pubic symphysis. Sagittal and coronal reformatted images were obtained on the technologist's workstation. This CT examination was performed using dose optimization techniques as appropriate, variously including the following: *Automated exposure control *Adjustment of mA and/or kV according to patient size (this includes techniques or standardized protocols for targeted exams where dose is matched to indication/reason for exam; i.e. extremities or head) *Use of iterative reconstruction technique DLP: 550 mGy-cm FINDINGS: LUNG BASES: Small bilateral pleural effusions, left larger in volume than right. Bibasilar consolidation with air bronchograms. Heart size enlarged. Trace pericardial effusion. LIVER, GALLBLADDER, AND BILIARY TREE: Hepatic cyst inferior right lobe of liver. No suspicious liver lesions. There are 2 adjacent calcified gallstone within the gallbladder. No gallbladder wall thickening or pericholecystic fluid. No dilatation of the bile ducts. PANCREAS: Pancreas is atrophic. No inflammation or mass. SPLEEN: Unremarkable. ADRENAL GLANDS: Unremarkable. KIDNEYS AND URETERS: There are 2 to 3 mm sized nonobstructive calculi in the lower pole of the right and left kidneys. There is no ureteral stone. No hydronephrosis. BLADDER: Unremarkable. GASTROINTESTINAL TRACT: There are numerous diverticula of the sigmoid and descending colon. There are a few scattered diverticula in the right colon. There is no diverticulitis. There is no bowel wall thickening /edema. There is no bowel obstruction. There is a moderate volume of stool in the colon. The appendix is nonvisualized . The small bowel loops are unremarkable. The stomach is normal. There is no hiatal hernia. ABDOMINAL WALL: Fat-containing umbilical hernia. LYMPH NODES: Normal. VASCULAR: Vascular calcifications in the abdomen and pelvis. 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 Based on published guidelines in J Am Sandy Radiol 2013; 10(10):789-794 and J Vasc Surg. 2018; 67:2-77, the recommendation for an abdominal aorta with diameter 2.6-2.9 cm is follow-up every 5 years if the aorta that meets the criteria for AAA (>1.5 x proximal normal segment; no f/u if < 1.5 x proximal normal segment; no f/u for aorta < 2.6 cm). Distal abdominal aorta measured 2.4 cm transverse on the abdominal ultrasound study of June 25, 2015. PELVIC VISCERA: The prostate measures 4.9 cm transverse. OSSEOUS STRUCTURES: Multilevel degenerative spondylosis of the spine. CT/CT abdomen pelvis wo IV con IMPRESSION: 1. No acute abnormality CT scan abdomen pelvis. 2. Small bilateral pleural effusions. Bibasilar consolidation. 3. Cholelithiasis. No acute change of gallbladder. No dilatation of bile ducts. 4. Nonobstructive bilateral renal calculi. 5. Diverticulosis of colon. No acute change of the bowel. Fleischner guidelines were followed. Electronically signed by: Simon Lundy MD 01/22/2024 05:00 PM EDT
--- NOTE | ~2024-01-19 | XR_ITS ---
EXAMINATION: XR CHEST CLINICAL INFORMATION: Evaluate left effusion COMPARISON: X-ray 01/22/2024, 01/19/2024 TECHNIQUE: Frontal view of the chest was obtained. FINDINGS: Cardiomediastinal silhouette is enlarged, similar to 01/19/2024 . Monitoring leads overlie the chest. Mild central vascular congestion. No overt pulmonary edema. Small left pleural effusion. Bibasilar hazy opacities from atelectasis or infiltrate. No pneumothorax. XR/XR chest 1V IMPRESSION: Small left pleural effusion. Bibasilar opacities could reflect atelectasis or infiltrate. Electronically signed by: [place] MD 01/24/2024 05:47 PM EDT
--- NOTE | ~2024-01-19 | XR_ITS ---
EXAMINATION: XR CHEST CLINICAL INFORMATION: Status post right thoracentesis. COMPARISON: Chest x-ray dated 01/19/[address] scan of the chest dated 01/19/2024. TECHNIQUE: AP upright portable view of the chest was obtained. FINDINGS: Evaluation is limited as the mid and lateral aspect of the left chest is excluded from the [id number] of the radiograph obtained. Multiple ECG leads overlie the chest. The cardiomediastinal silhouette to the extent included appears similar to the previous exam and is enlarged. Tortuosity of the aorta is seen.. There is mild central vascular congestion. Linear atelectasis is seen in the lung bases bilaterally. No overt pulmonary edema. No significant pleural effusion or pneumothorax on the right side. Left mid and lower lung not adequately assessed. Bony structures are unremarkable. XR/XR chest 1V IMPRESSION: 1. Limited exam. Left chest on the incompletely included. 2. No significant right-sided pleural effusion or pneumothorax is seen status post right thoracentesis. 3. Bibasilar subsegmental atelectasis. 4. Central vascular congestion. No overt pulmonary edema. Electronically signed by: Lesli Phillips MD 01/22/2024 04:31 PM EDT
--- NOTE | ~2024-01-19 | XR_ITS ---
EXAMINATION: XR CHEST CLINICAL INFORMATION: Weakness COMPARISON: Chest x-ray December 24, 2023 TECHNIQUE: Frontal view of the chest was obtained. 1547 hours FINDINGS: Heart size enlarged. Thoracic aorta is uncoiled. Lung volumes are low. There is mild to moderate central pulmonary vascular prominence accentuated by low inspiratory effort. No overt pulmonary edema. Bibasilar densities due to bilateral moderate volume pleural effusions and basilar consolidation/atelectasis. Compared to prior study December 24, 2023 has not been substantial change. XR/XR chest 1V IMPRESSION: 1. Cardiomegaly. 2. Low lung volumes. 3. Bibasilar densities due to bilateral moderate volume pleural effusions and basilar consolidation/atelectasis. Electronically signed by: Simon Lundy MD 01/19/2024 04:24 PM EDT
--- NOTE | ~2024-01-19 | CT_ITS ---
EXAMINATION: CT CHEST WITHOUT CONTRAST CLINICAL INFORMATION: Dyspnea. History of fluid around the heart. COMPARISON: Chest x-ray January 19, 2024. CT chest December 21, 2023 TECHNIQUE: Multidetector volumetric CT imaging of the chest was done. Axial MIP volume rendering provided. Sagittal and coronal reformatted images were obtained. This CT examination was performed using dose optimization techniques as appropriate, variously including the following: *Automated exposure control *Adjustment of mA and/or kV according to patient size (this includes techniques or standardized protocols for targeted exams where dose is matched to indication/reason for exam; i.e. extremities or head) *Use of iterative reconstruction technique DLP: 546 mGy-cm FINDINGS: LUNGS: Bibasilar consolidation with air bronchograms. Central bronchial airways are open. MEDIASTINUM: Heart size enlarged. Trace pericardial effusion. Vascular calcifications of the aorta. No aneurysm of aorta. Stable 2 cm hypodense nodule right lobe of thyroid. ( See thyroid ultrasound exam December 28, 2023.) CORONARY ARTERY CALCIFICATION: Moderate volume of coronary artery calcification. PLEURA: Small volume bilateral pleural effusions. AXILLA: No lymphadenopathy. UPPER ABDOMEN: Partially visualized in 0.5 cm hepatic cyst adjacent to the gallbladder fossa in the liver. 2 small calcified gallstones in the gallbladder. No edema around the gallbladder. OSSEOUS STRUCTURES: Multilevel degenerative spondylosis of the spine. CT/CT chest wo IV con IMPRESSION: 1. Bibasilar consolidation with air bronchograms. 2. Small volume bilateral pleural effusions. 3. Cardiomegaly. Trace pericardial effusion. 4. Cholelithiasis. Fleischner guidelines were followed. Electronically signed by: Simon Lundy MD 01/19/2024 10:27 PM EDT
[2024-01-19 15:19] VITALS: BP 132/48; PULSE 60; RESP 18; TEMP 36.7; O2SAT 94; BMI 28.9
--- NOTE | 2024-01-19 15:19 | ED_ITS ---
HPI - General Adult General Chief complaint: Arrhythmia/Palpitations Stated complaint: low heart rate, flucuating bp Time Seen by Provider: 01/19/24 20:34 Source: patient and family Mode of arrival: EMS Limitations: no limitations History of Present Illness ED Provider: daniela SHEEHAN narrative: Patient 83 years old with history of alcohol dependence,HFrEF, atrial flutter on Eliquis mild cognitive impairment, mood disorder, recent admission on 12/22/2023 for pericardial effusion with tamponade status post pericardial window discharge on 12/27 to rehab center from where he was discharged yesterday since he arrived home patient has been increased short of breath having difficulty in breathing coughing with mucopurulent phlegm no fever noticed patient denied any chest pain Related Data Home Medications ?Medication ?Instructions ?Recorded ?Confirmed allopurinol 300 mg tablet 300 mg PO DAILY 03/01/23 12/22/23 omeprazole 20 mg capsule,delayed 20 mg PO BID PRN Heart Burn 03/01/23 12/22/23 release sertraline 100 mg tablet 150 mg PO DAILY 12/22/23 12/22/23 Previous Rx's ?Medication ?Instructions ?Recorded apixaban 5 mg tablet (Eliquis) 5 mg PO BID #60 tabs 12/27/23 digoxin 125 mcg (0.125 mg) tablet 0.125 mg PO DAILY #30 tabs 12/27/23 furosemide 20 mg tablet (Lasix) 20 mg PO BID #60 tabs 12/27/23 metoprolol succinate 50 mg 50 mg PO DAILY #30 tabs 12/27/23 tablet,extended release 24 hr valsartan 40 mg tablet 40 mg PO BID #60 tabs 12/27/23 Allergies Allergy/AdvReac Type Severity Reaction Status Date / Time No Known Allergies Allergy Verified 01/19/24 15:24 Review of Systems 2 Review of Systems: Yes all other systems are reviewed and are negative PMFSH Past Medical History Medical History Acute pericardial effusion COPD (chronic obstructive pulmonary disease) CHF (congestive heart failure) Graves disease Hypertension Vertigo Dizziness Surgical History No pertinent past surgical history H/O endoscopy H/O colonoscopy Social History Social History Household Members: None Housing: House Do you presently have visiting nurse or other home services: No Alcohol intake: former Patient Tobacco Use Status: Former Tobacco user Tobacco use type: Cigarette Years Smoked: 30 Smoked in Last 30 Days: No e-Cigarette/Vaping Use: Never Used Second Hand Smoke Exposure: No Use of substances other than those prescribed or required for medical reasons: No Advance Directives: Yes Advance Directives on File: Yes Advance Directives Date on File: 03/08/23 Do you have a plan to hurt others: No Plan service: Yes Physical Exam ED Vital Signs: Vital Signs - 24 hr 01/19/24 15:19 01/19/24 20:43 01/20/24 00:28 Temperature 98.1 F 97.7 F 98.1 F Pulse Rate 60 67 68 Respiratory Rate 18 23 H 17 Blood Pressure 132/48 L 177/80 H 172/68 H Pulse Oximetry 94 94 92 Oxygen Delivery Method Room Air Room Air Room Air BMI result Body Mass Index 28.9 Appearance: Alert. Oriented X3. In obvious respiratory distress with abdominal breathing Eyes: Mild pallor no icterus ENT: Pharynx normal. Oral Mucosa moist Neck: Normal inspection. Neck supple. CVS: Normal heart rate and rhythm. Pulses normal. Respiratory: No respiratory distress. Equal air entry bilateral, bilateral crackles at bases Abdomen: Soft and nontender. Bowel sounds are present, no mass palpable, no CVA tenderness Skin: Skin warm and dry. Normal skin color. Normal skin turgor. Extremities: no lower extremity edema. No calf tenderness Neuro: Oriented X 3. No motor deficit. No sensory deficit.No cerebellar signs , cranial nerves II-XII intact Course Course Course Narrative: RME performed by Becky Landa PA-C. Patient is an 83 year old assigned male at presenting to the emergency department with possible low heart rate, weakness, and weight loss. Patient's daughter states that the patient is much more weak, has a lower heart rate, and is not eating. Patient was recently admitting and sent to rehab, discharged from rehab as of yesterday. Patient's daughter states that if the patient is medically OK - they want help with either placement or extensive help at home. Detailed physical exam and review of systems are deferred to the manager of recruiting. EKG, labs, imaging, and swabs ordered. Patient placed back in the waiting room pending room availability and results. Medications Administered Discontinued Medications Generic Name Dose Route Start Last Admin Trade Name Latasha PRN Reason Stop Dose Admin Ceftriaxone Sodium 1 gm/ 50 mls @ 100 mls/hr 01/19/24 20:59 01/19/24 23:06 Sodium Chloride IV 01/19/24 21:28 Infused ONCE ONE Infusion Piperacillin Sod/Tazobactam 50 mls @ 100 mls/hr 01/20/24 00:32 01/20/24 01:07 Sod 3.375 gm/ Sodium Chloride IV 01/20/24 01:01 100 mls/hr ONCE ONE Administration Medical Decision Making Medical Decision Making [facility] Narrative: Patient's respiratory distress with recent admission for pericardial effusion and pneumonia comes here for increased shortness of breath and respiratory distress likely aspiration pneumonia will admit patient for IV antibiotic Differential Diagnosis Differential Diagnoses: The differential diagnosis associated with the presentation includes Pneumonia/pericardial effusion/pleural effusion/deconditioning Admission/Observation Consideration of admission/observation: Escalation of care including admission/observation considered Consult Healthcare Provider Management of the patient was discussed with: Hospitalist Lab Data [facility] Lab Attestation statement: I reviewed the patient's lab results. 01/19/24 15:35 01/19/24 15:35 Labs: Lab Results 01/19/24 01/19/24 01/19/24 Range/Units 15:35 21:27 21:49 WBC 12.1 H (4.8-10.8) X10*3/uL RBC 3.76 L (4.60-5.80) X10*6/uL Hgb 11.0 L (14.0-18.0) g/dl Hct 33.4 L (42.0-52.0) % MCV 88.8 (80.0-98.0) fL MCH 29.3 (27.0-33.0) pg MCHC 32.9 (31.0-36.0) g/dl RDW 16.0 (11.0-16.0) % Plt Count 283 (160-400) X10*3/uL MPV 10.2 (9.4-12.4) fL Immature Gran % (Auto) 1.8 H (0.0-0.4) % Neut % (Auto) 83.1 H (45-73) % Lymph % (Auto) 5.4 L (20-40) % [place] % (Auto) 9.3 (2-11) % Eos % (Auto) 0.2 (0-4) % Baso % (Auto) 0.2 (0-2) % Lymph # (Auto) 0.7 L (1.2-4.9) X10*3/uL [place] # (Auto) 1.1 (0.1-1.2) X10*3/uL Eos # (Auto) 0.0 (0.0-0.4) X10*3/uL Baso # (Auto) 0.0 (0.0-0.2) X10*3/uL Abs Immat Gran (auto) 0.22 H (0.00-0.03) X10*3/uL Absolute Neuts (auto) 10.1 H (2.0-8.3) x10*3/uL Absolute Nucleated RBC 0.000 (0.0-0.012) X10*3/uL Nucleated RBC % (auto) 0.0 (0.0-0.2) /100WBC PT 20.1 H D (11.1-13.3) SEC INR 1.7 H (0.9-1.1) APTT 39.5 H (26.0-36.8) SEC Sodium 138 (135-145) mmol/L Potassium 3.3 (3.3-5.1) mmol/L Chloride 101 (96-108) mmol/L Carbon Dioxide 27 (22-29) mmol/L Anion Gap 13 (12-20) BUN 18 H (9-16) mg/dL Creatinine 0.90 (0.5-1.4) mg/dL Estim Creat Clear Calc 60.0 Estimated GFR > 60 Random Glucose 163 H (60-115) mg/dL Lactic Acid 1.0 (0.5-2.0) mmol/L Calcium 8.9 D (8.4-10.2) mg/dL Magnesium 1.9 (1.6-2.6) mg/dL Total Bilirubin 0.8 (0.0-1.0) mg/dL AST 17 (5-37) U/L ALT 25 (0-40) U/L Alkaline Phosphatase 105 (39-117) U/L Troponin I High Sens 33.1 (<3.5-35.0) ng/L Total Protein 6.0 L (6.5-8.0) g/dL Albumin 3.5 (3.5-5.0) g/dL Urine Color Yellow Urine Appearance Clear Urine pH 6.5 (5.0-9.0) Ur Specific [place] 1.015 (1.005-1.025) Urine Protein Trace (Neg-Trace) mg/dL Urine Glucose (UA) Negative (Negative) mg/dL Urine Ketones Negative (Negative) mg/dL Urine Blood Negative (Negative) Urine Nitrite Negative (Negative) Ur Leukocyte Esterase Moderate (2+) H (Negative) Urine RBC 0-2 (0-2) /HPF Urine WBC 11-20 H (0-5) /HPF Ur Squamous Epith Cells 0-2 (0-2) /HPF Urine Bacteria None Seen (None Seen) Hyaline Casts 0-2 (0-2) /LPF Influenza Type A (PCR) NEGATIVE (Negative) Influenza Type B (PCR) NEGATIVE (Negative) RSV RNA Qual (PCR) NEGATIVE (Negative) SARS-CoV-2 RNA (RT-PCR) NEGATIVE (Negative) Independent Interpretation I performed an independent interpretation of an: EKG and CT Scan Interpretation: Atrial fibrillation with ventricular rate of 55 beats per minute LVH no acute STT wave changes no acute ischemia Radiology Impression Discussion of test interpretation with radiology: I have reviewed the radiologist's reading. Radiologist Impression: [place] [id number] CT Scan Report Signed Patient: Albert Tristan MR#: [id number] : 1940 Acct:[id number] Age/Sex: 83 / M ADM Date: 01/19/24 Loc: .ED Attending Dr: Ordering Physician: Richmond Shepard MD Date of Service: 01/19/24 Procedure(s): CT chest wo IV con Accession Number(s): [id number] cc: Rolo Eric DO; Richmond Shepard MD~ EXAMINATION: CT CHEST WITHOUT CONTRAST CLINICAL INFORMATION: Dyspnea. History of fluid around the heart. COMPARISON: Chest x-ray January 19, 2024. CT chest December 21, 2023 TECHNIQUE: Multidetector volumetric CT imaging of the chest was done. Axial MIP volume rendering provided. Sagittal and coronal reformatted images were obtained. This CT examination was performed using dose optimization techniques as appropriate, variously including the following: *Automated exposure control *Adjustment of mA and/or kV according to patient size (this includes techniques or standardized protocols for targeted exams where dose is matched to indication/reason for exam; i.e. extremities or head) *Use of iterative reconstruction technique DLP: 546 mGy-cm FINDINGS: LUNGS: Bibasilar consolidation with air bronchograms. Central bronchial airways are open. MEDIASTINUM: Heart size enlarged. Trace pericardial effusion. Vascular calcifications of the aorta. No aneurysm of aorta. Stable 2 cm hypodense nodule right lobe of thyroid. ( See thyroid ultrasound exam December 28, 2023.) CORONARY ARTERY CALCIFICATION: Moderate volume of coronary artery calcification. PLEURA: Small volume bilateral pleural effusions. AXILLA: No lymphadenopathy. UPPER ABDOMEN: Partially visualized in 0.5 cm hepatic cyst adjacent to the gallbladder fossa in the liver. 2 small calcified gallstones in the gallbladder. No edema around the gallbladder. OSSEOUS STRUCTURES: Multilevel degenerative spondylosis of the spine. CT/CT chest wo IV con IMPRESSION: 1. Bibasilar consolidation with air bronchograms. 2. Small volume bilateral pleural effusions. 3. Cardiomegaly. Trace pericardial effusion. 4. Cholelithiasis. Fleischner guidelines were followed. Electronically signed by: Simon Lundy MD 01/19/2024 10:27 PM EDT RP Critical Care Time Critical Care Time Critical Care Time: Yes Total Critical Care Time: 55 Attestation: The patient was critically ill with a high probability of imminent or life threatening deterioration. I spent greater than 60??minutes of discontinuous time evaluating the patient,delivering critical care at the bedside, discussing and evaluating pertinent data with consultants. Critical care time does not include time spent performing separately billable procedures or teaching. Total time spent performing critical care was 55???minutes. Discharge Plan Discharge Clinical Impression: Aspiration pneumonia of both lower lobes, Atrial fibrillation, Acute weakness Patient Disposition: Admitted As Inpatient
--- NOTE | 2024-01-19 15:25 | ECG_ITS ---
Test Reason : arrythmia Blood Pressure : / mmHG Vent. Rate : 055 BPM Atrial Rate : 000 BPM P-R Int : 000 ms QRS Dur : 084 ms QT Int : 408 ms P-R-T Axes : 000 -10 190 degrees QTc Int : 390 ms Atrial fibrillation with slow ventricular response Left ventricular hypertrophy with repolarization abnormality ( R in aVL ) Abnormal ECG When compared with ECG of 22-DEC-2023 15:25, Vent. rate has decreased BY 33 BPM QT has shortened Referred By: Becky Landa Electronically Signed By:SIDNEY BUSTILLO
[2024-01-19 15:40] LABS: MANUAL DIFF FLAG NO
[2024-01-19 15:41] LABS: Basophils Percent Auto 0.2 % (0-2); Eosinophils Percent Auto 0.2 % (0-4); Hematocrit 33.4 % (42.0-52.0); Imm Gran Abs Auto 0.22 X10*3/uL (0.00-0.03); Imm Gran Pct Auto 1.8 % (0.0-0.4); Lymphocytes Absolute Auto 0.7 X10*3/uL (1.2-4.9); Lymphocytes Percent Auto 5.4 % (20-40); Mean Corpuscular HGB Conc 32.9 g/dl (31.0-36.0); Mean Corpuscular Hemoglobin 29.3 pg (27.0-33.0); Mean Corpuscular Volume 88.8 fL (80.0-98.0); Mean Platelet Volume 10.2 fL (9.4-12.4); Monocytes Absolute Auto 1.1 X10*3/uL (0.1-1.2); Monocytes Percent Auto 9.3 % (2-11); Neutrophils Absolute Auto 10.1 x10*3/uL (2.0-8.3); Neutrophils Percent Auto 83.1 % (45-73); Platelet Count 283 X10*3/uL (160-400); Red Blood Count 3.76 X10*6/uL (4.60-5.80); White Blood Count 12.1 X10*3/uL (4.8-10.8)
[2024-01-19 15:47] LABS: INTERNATIONAL NORM RATIO 1.7 (0.9-1.1); Prothrombin Time 20.1 SEC (11.1-13.3)
[2024-01-19 15:49] LABS: Partial Thromboplastin Time 39.5 SEC (26.0-36.8)
[2024-01-19 15:55] LABS: Alanine Aminotransferase 25 U/L (0-40); Albumin Level 3.5 g/dL (3.5-5.0); Alkaline Phosphatase 105 U/L (39-117); Anion Gap 13 (12-20); Aspartate Amino Transferase 17 U/L (5-37); Bilirubin Total 0.8 mg/dL (0.0-1.0); Blood Urea Nitrogen 18 mg/dL (9-16); Calcium 8.9 mg/dL (8.4-10.2); Carbon Dioxide 27 mmol/L (22-29); Chloride 101 mmol/L (96-108); Estimated Glomerular Filt Rate > 60; Glucose Random 163 mg/dL (60-115); Magnesium 1.9 mg/dL (1.6-2.6); Potassium 3.3 mmol/L (3.3-5.1); Sodium 138 mmol/L (135-145)
[2024-01-19 16:05] LABS: Troponin-I High Sensitivity 33.1 ng/L (<3.5-35.0)
[2024-01-19 16:18] LABS: Influenza A PCR NEGATIVE (Negative); Influenza B PCR NEGATIVE (Negative); Resp Syncy Virus RNA Qual PCR NEGATIVE (Negative); SARS COV2 PCR INHOUSE NEGATIVE (Negative)
--- NOTE | 2024-01-19 20:37 | MHC.EDTECH ---
Patient assisted from wheelchair to Room 11 bed, 1 person assist. patientt weak and unstable at times per family. patient family requested 2 band aids placed on small skin tears on patients right wrist/forearm. patient placed on manager monitoring per RN and repositioned in bed with senior technical program managerjoe Lawrence.
[2024-01-19 20:43] VITALS: BP 177/80; PULSE 67; RESP 23; TEMP 36.5; O2SAT 94
[2024-01-19] MEDS: cefTRIAXone sodium 1 GM in 0.9 % Sodium Chloride 50 ML IV (21:40)
[2024-01-19 22:00] LABS: Appearance Urine Clear; Color Urine Yellow; Glucose Urine UA Negative (Negative); Leukocyte Esterase Urine Moderate (2+) (Negative); Nitrite Urine Negative (Negative); PH 6.5 (5.0-9.0); Specific Gravity - Urine 1.015 (1.005-1.025); UMIC TRIGGER UACC YES; Urine Blood Negative (Negative); Urine Ketones Negative (Negative); Urine Protein Trace mg/dL (Neg-Trace)
[2024-01-19 22:05] LABS: Bacteria Urine None Seen (None Seen); Hyaline Casts Urine 0-2 /LPF (0-2); RBC Urine 0-2 /HPF (0-2); Squamous Epithelial Cell Urine 0-2 /HPF (0-2); UACC Culture Trigger YES
[2024-01-20] VITALS (10 sets, daily range): BP systolic 130–186; BP diastolic 61–82; PULSE 54–68; RESP 17–22; TEMP 36.6–37.4; O2SAT 92–97
[2024-01-20] MEDS: Piperacillin Sodium/Tazobactam 3.375 GM in 0.9 % Sodium Chloride 50 ML IV ×4 (01:07→19:45)
--- NOTE | 2024-01-20 01:09 | P.HPHOSP_ITS ---
History of Present Illness Date of Service: 01/20/24 Chief Complaint: weakness 83M PMH remote history of etoh dependence, hfref, mild cognitive impairment, mood disorder, bph, gout, recent pericardial effusion with tamponade 12/2023 complicated by pafib, underwent window was discharged to SNF for rehab 1 day prior to presentation and brought back to ED for severe weakness, decreased appetite, difficulty ambulating. patient has lost about 6kg since admission 3 weeks ago. family also noted increased cough with phlegm and dyspnea (patient denies), no fever, chills, chest pain. in ED CT chest showed bibasilar consolidation with air bronchograms, trace pericardial effusion, right sided effusion. Review of Systems 2 Review of Systems: Yes all other systems are reviewed and are negative [facility] Medical History Acute pericardial effusion COPD (chronic obstructive pulmonary disease) CHF (congestive heart failure) Graves disease Hypertension Vertigo Dizziness Surgical History No pertinent past surgical history H/O endoscopy H/O colonoscopy Social History Household Members: None Housing: House Do you presently have visiting nurse or other home services: No Alcohol intake: former Patient Tobacco Use Status: Former Tobacco user Tobacco use type: Cigarette Years Smoked: 30 Smoked in Last 30 Days: No e-Cigarette/Vaping Use: Never Used Second Hand Smoke Exposure: No Use of substances other than those prescribed or required for medical reasons: No Advance Directives: Yes Advance Directives on File: Yes Advance Directives Date on File: 03/08/23 Do you have a plan to hurt others: No Plan service: Yes Meds Allergies Allergy/AdvReac Type Severity Reaction Status Date / Time No Known Allergies Allergy Verified 01/19/24 15:24 Active Medications: Current Medications Acetaminophen (Acetaminophen 325 Mg Tablet) 650 mg PO Q6H PRN PRN Reason: Pain, Mild (Pain Scale 1-3), fever or headache Allopurinol (Allopurinol 300 Mg Tablet) 300 mg PO DAILY [facility] Calcium Carbonate (Calcium Carbonate 750 Mg Tab.Chew) 750 mg PO Q4H PRN PRN Reason: Heartburn Enoxaparin Sodium (Enoxaparin Sodium 40 Mg/0.4 Ml Syringe) 40 mg SUBCUT Q24H [facility] Furosemide (Furosemide 20 Mg Tablet) 20 mg PO BID@0900,1800 [facility]; Protocol Piperacillin Sod/Tazobactam (Sod 3.375 gm/ Sodium Chloride) 50 mls @ 100 mls/hr IV Q6H [facility] Magnesium Hydroxide (Milk Of Magnesia 30 Ml Oral.Susp) 30 ml PO DAILY PRN PRN Reason: Constipation Melatonin (Melatonin 3 Mg Tablet) 6 mg PO BEDTIME PRN PRN Reason: Insomnia Omeprazole (Omeprazole 20 Mg Capsule.Dr) 20 mg PO DAILY@0630 [facility] Sodium Chloride (0.9 % Sodium Chloride Flush 3 Ml Syringe) 3 ml IVFLUSH QSHIFT [facility] Home Medications ?Medication ?Instructions ?Recorded ?Confirmed ?Last Taken ?Type allopurinol 300 mg tablet 300 mg PO DAILY 03/01/23 12/22/23 12/20/23 History omeprazole 20 mg capsule,delayed 20 mg PO BID PRN Heart Burn 03/01/23 12/22/23 12/20/23 History release sertraline 100 mg tablet 150 mg PO DAILY 12/22/23 12/22/23 12/20/23 History Physical Exam 2 Vital Signs and Narrative: Vital Signs: Last Vital Signs Temp 98.1 F 01/20/24 00:28 Pulse 68 01/20/24 00:28 Resp 17 01/20/24 00:28 BP 172/68 H 01/20/24 00:28 Pulse Ox 92 01/20/24 00:28 O2 Del Method Room Air 01/20/24 00:28 BMI result Body Mass Index 28.9 General: AO X 3, no acute distress, frail appearing Resp: diminished bilateral, no accessory muscles used CVS: S1,S2, irregular GI: soft, non tender, non distended Neuro: motor weak, symmetric, alert Psych: appropriate affect, imapired insight Results Labs 01/19/24 15:35 01/19/24 15:35 Labs: Laboratory Results - last 24 hr 01/19/24 01/19/24 01/19/24 15:35 21:27 21:49 MCV 88.8 MCH 29.3 MCHC 32.9 RDW 16.0 Plt Count 283 MPV 10.2 Immature Gran % (Auto) 1.8 H Neut % (Auto) 83.1 H Lymph % (Auto) 5.4 L Alfalfa % (Auto) 9.3 Eos % (Auto) 0.2 Baso % (Auto) 0.2 Lymph # (Auto) 0.7 L Alfalfa # (Auto) 1.1 Eos # (Auto) 0.0 Baso # (Auto) 0.0 Abs Immat Gran (auto) 0.22 H Absolute Neuts (auto) 10.1 H Absolute Nucleated RBC 0.000 Nucleated RBC % (auto) 0.0 PT 20.1 H D INR 1.7 H APTT 39.5 H Anion Gap 13 Estim Creat Clear Calc 60.0 Estimated GFR > 60 Random Glucose 163 H Lactic Acid 1.0 Calcium 8.9 D Magnesium 1.9 Total Bilirubin 0.8 AST 17 ALT 25 Alkaline Phosphatase 105 Troponin I High Sens 33.1 Total Protein 6.0 L Albumin 3.5 Urine Color Yellow Urine Appearance Clear Urine pH 6.5 Ur Specific [place] 1.015 Urine Protein Trace Urine Glucose (UA) Negative Urine Ketones Negative Urine Blood Negative Urine Nitrite Negative Ur Leukocyte Esterase Moderate (2+) H Urine RBC 0-2 Urine WBC 11-20 H Ur Squamous Epith Cells 0-2 Urine Bacteria None Seen Hyaline Casts 0-2 Influenza Type A (PCR) NEGATIVE Influenza Type B (PCR) NEGATIVE RSV RNA Qual (PCR) NEGATIVE SARS-CoV-2 RNA (RT-PCR) NEGATIVE Imaging Radiologist's Impressions: Impressions Chest X-Ray 01/19/24 15:25 IMPRESSION: 1. Cardiomegaly. 2. Low lung volumes. 3. Bibasilar densities due to bilateral moderate volume pleural effusions and basilar consolidation/atelectasis. Electronically signed by: Simon Lundy MD 01/19/2024 04:24 PM EDT RP Chest CT 01/19/24 20:54 IMPRESSION: 1. Bibasilar consolidation with air bronchograms. 2. Small volume bilateral pleural effusions. 3. Cardiomegaly. Trace pericardial effusion. 4. Cholelithiasis. Fleischner guidelines were followed. Electronically signed by: Simon Lundy MD 01/19/2024 10:27 PM EDT Assessment and Plan (1) Aspiration pneumonia of both lower lobes: Status: Acute Plan 83M PMH remote history of etoh dependence, hfref, mild cognitive impairment, mood disorder, bph, gout, recent pericardial effusion with tamponade 12/2023 complicated by pafib presented with weakness sepsis (tachypnea, leukocytosis) due to aspiration pneumonia with right sided effusion iv zosyn, honey liquefier eval, hold eliquis, IR for right thoracentesis (?01/22/24) follow up cultures pafib toprol, dig, holding eliquis for thoracentesis chronic systolic chf with recent tamponade toprol, valsartan, lasix cardio eval mild cognitive impairment at baseline mood disorder zoloft gout allopurinol dvt prophylaxis - lovenox while holding eliquis DNR/DNI Patient with significant weakness and pneumonia requiring IV antibiotics and close monitoring therefore expected require at least 2 midnights inpatient Quality Stroke Does the patient have a stroke diagnosis?: No VTE Prior VTE?: No VTE Risk Level:: Medical - moderate - high VTE Device Contraindication: Treatment Not Indicated VTE Drug Contraindication: N/A - Med Ordered
[2024-01-20 05:19] LABS: Hematocrit 32.2 % (42.0-52.0); Hemoglobin 10.8 g/dl (14.0-18.0); Mean Corpuscular HGB Conc 33.5 g/dl (31.0-36.0); Mean Corpuscular Hemoglobin 29.8 pg (27.0-33.0); Mean Platelet Volume 10.1 fL (9.4-12.4); Platelet Count 241 X10*3/uL (160-400); Red Blood Count 3.62 X10*6/uL (4.60-5.80); Red Cell Distribution Width 15.9 % (11.0-16.0); White Blood Count 12.2 X10*3/uL (4.8-10.8)
[2024-01-20 05:40] LABS: Anion Gap 15 (12-20); Blood Urea Nitrogen 15 mg/dL (9-16); Calcium 8.9 mg/dL (8.4-10.2); Carbon Dioxide 25 mmol/L (22-29); Chloride 101 mmol/L (96-108); Creatinine Clr Calc Pharmacy 67.5; Estimated Glomerular Filt Rate > 60; Glucose Random 140 mg/dL (60-115); Potassium 3.1 mmol/L (3.3-5.1); Sodium 138 mmol/L (135-145)
[2024-01-20 05:41] LABS: B Type Natriuretic Peptide 2746 pg/mL (<100)
[2024-01-20 05:55] LABS: Procalcitonin 0.05 ng/mL
--- NOTE | 2024-01-20 06:29 | PC.NURSE ---
MD aware of BP 171/76. nonew orders at this time. BP meds due at 0900.
[2024-01-20] MEDS: Omeprazole 20 MG CAPSULE.DR PO (06:30)
--- NOTE | 2024-01-20 06:32 | PC.NURSE ---
[place] cath off, not good candidate. Full bed change and bed bath given.
--- NOTE | 2024-01-20 07:25 | PHA.MEDREC ---
Pharmacy Consult ? Medication Reconciliation Pharmacy has completed the medication reconciliation. Used list from [facility] in [place]
[2024-01-20] MEDS: allopurinoL 300 MG TABLET PO (08:23)
[2024-01-20] MEDS: Sertraline HCL 100 MG TABLET PO (08:23)
[2024-01-20] MEDS: Enoxaparin Sodium 40 MG/0.4 ML SYRINGE SUBCUT (08:25)
[2024-01-20] MEDS: Furosemide 20 MG TABLET PO ×2 (08:25→17:40)
--- NOTE | 2024-01-20 08:33 | PC.NURSE ---
Pt HR varying between mid 50s- mid 60s, this RN reached out to MD about holding metroprolol and digoxin. Per MD hold meds.
[2024-01-20] MEDS: Potassium Chloride/H20 10 MEQ/100 ML PIGGYBACK 100 MEQ IV ×2 (09:50→10:51)
--- NOTE | 2024-01-20 10:25 | PM.EVENT ---
Event Note Date of Service: 01/20/24 Event Note: The patient seen and evaluated this morning feeling more comfortable Sat 96% on RA Pending blood cultures Thoracentesis likely Monday continue to hold Eliquis now Continue IV Lucretia garcia. Time Spent With Patient Time: Total time managing care of this patient today ____ minutes.
[2024-01-20] MEDS: Valsartan 40 MG TABLET PO ×2 (10:45→19:46)
[2024-01-20] MEDS: Calcium Carbonate 750 MG TAB.CHEW PO (10:51)
--- NOTE | 2024-01-20 14:58 | PC.NURSE ---
Upon rounding pt was scooting to end of the bed, and pulled out his IV. 20g IV placed in left forearm, abx hung per MAR. Pt texas cath was found on the floor and pt was incontinent, able to verbalize to me for urinal. Pt to be transported to [facility] by transport.
--- NOTE | 2024-01-20 15:10 | PC.NURSE ---
pt c/o lightheaded and dizziness with positon change
[2024-01-21] VITALS (8 sets, daily range): BP systolic 148–175; BP diastolic 75–85; PULSE 59–76; RESP 18–20; TEMP 36.7–37.4; O2SAT 93–97
[2024-01-21] MEDS: 0.9 % Sodium Chloride Flush 3 ML SYRINGE IVFLUSH ×4 (00:01→20:15)
[2024-01-21] MEDS: Piperacillin Sodium/Tazobactam 3.375 GM in 0.9 % Sodium Chloride 50 ML IV ×3 (02:02→13:25)
[2024-01-21] MEDS: Omeprazole 20 MG CAPSULE.DR PO (06:20)
[2024-01-21 07:10] LABS: Hematocrit 31.9 % (42.0-52.0); Hemoglobin 10.8 g/dl (14.0-18.0); Mean Corpuscular HGB Conc 33.9 g/dl (31.0-36.0); Mean Corpuscular Hemoglobin 29.8 pg (27.0-33.0); Mean Corpuscular Volume 88.1 fL (80.0-98.0); Mean Platelet Volume 10.4 fL (9.4-12.4); Platelet Count 261 X10*3/uL (160-400); Red Blood Count 3.62 X10*6/uL (4.60-5.80); Red Cell Distribution Width 16.1 % (11.0-16.0); White Blood Count 10.1 X10*3/uL (4.8-10.8)
[2024-01-21 07:31] LABS: B Type Natriuretic Peptide 2327 pg/mL (<100)
[2024-01-21 07:32] LABS: Anion Gap 15 (12-20); Blood Urea Nitrogen 14 mg/dL (9-16); Calcium 8.6 mg/dL (8.4-10.2); Carbon Dioxide 27 mmol/L (22-29); Chloride 102 mmol/L (96-108); Creatinine Clr Calc Pharmacy 62.8; Estimated Glomerular Filt Rate > 60; Glucose Random 166 mg/dL (60-115); Potassium 2.9 mmol/L (3.3-5.1); Sodium 141 mmol/L (135-145)
[2024-01-21] MEDS: Digoxin 0.125 MG TABLET PO (07:37)
[2024-01-21] MEDS: Metoprolol Succinate ER 50 MG TAB.ER.24H PO (07:37)
[2024-01-21] MEDS: Furosemide 20 MG TABLET PO (07:37)
[2024-01-21] MEDS: Sertraline HCL 100 MG TABLET PO (07:37)
[2024-01-21] MEDS: Valsartan 40 MG TABLET PO (07:38)
[2024-01-21] MEDS: allopurinoL 300 MG TABLET PO (07:38)
[2024-01-21] MEDS: Enoxaparin Sodium 40 MG/0.4 ML SYRINGE SUBCUT (07:38)
[2024-01-21] MEDS: Potassium Chloride Packet 20 MEQ PACKET 40 MEQ PO ×2 (08:28→09:34)
[2024-01-21] MEDS: Potassium Chloride/H20 10 MEQ/100 ML PIGGYBACK 100 MEQ IV ×6 (08:30→23:31)
--- NOTE | 2024-01-21 10:04 | MHC.SL.SWA ---
Speech Pathologist Impression: Risk of Aspiration, Pharyngeal Dysphagia Risk of Aspiration Due to: History of Pneumonia Reduced Cognition Dysphasia Diet Status:Downgrade liquids to HT Liquid Consistency and Strategies for Safe Swallow: Liquid Intake Recommendation: Honey Thick Liquid Intake Strategies: Small Sips No Straws Solid Food Consistency: Dietary Recommendations: Regular Additional Modifications to Solid Foods: Patient tolerated semi-solid and regular solid textures well with timely oral phase, good oral clearance, and no overt s/s of aspiration. Observed immediate cough on thin liquid with throat clearing and wet vocal quality. Recommend continue on Regular texture diet and DOWNGRADE to Honey Thick liquids (NO STRAWS), Pills to be Crushed in Puree. Aspiration precautions apply. Oral Medication Intake: Crushed with Puree Please contact the pharmacy regarding appropriate crushable or liquid drug formulations that are available whenever modified delivery is recommended. Compensatory Strategies and Precautions to be Taken for Safe Swallow: Sitting Upright (90 deg) No Straw Small Bites and Sips Alternate Liquids/Solids Rate of Ingestion Change Avoid Specific Foods Supervision While Eating and Drinking for Safe Swallow: Total Supervision (1:1) Foods to Avoid: Mixed consistencies Swallowing Recommended Treatments: Compens. Strategy Educat. Recommendation for Speech: Inpatient Speech Therapy Comment: FRAME GATE MORTISER OPERATOR will continue to follow during inpatient stay Frequency/Duration: PRN M-F Date Range for Service Req: Timeline to reassess: Brass And Wind Instrument Repairer Clinican/Clinical Fellow: No Supervisory Statement: I have reviewed and agree with the student/clinical fellow's documentation: N/A Speech Language Pathologist: Denise Franco M.A., [facility]-FRAME GATE MORTISER OPERATOR
--- NOTE | 2024-01-21 13:09 | HO.PM.IMPN ---
Subjective Subjective Date of Service: 01/21/24 Interval History: seen and evaluated this morning denies any fever or chills breathing better but having swallowing concerns with liquids no other events Review of Systems Review of Systems: Yes all other systems are reviewed and are negative Physical Exam Vital Signs: Vital Signs: Last Vital Signs Temp 98.7 F 01/21/24 10:47 Pulse 76 01/21/24 10:47 Resp 20 01/21/24 10:47 BP 150/75 H 01/21/24 10:47 Pulse Ox 94 01/21/24 10:47 O2 Del Method Room Air 01/21/24 10:47 BMI result Body Mass Index 28.9 Const: Other: Constitutional : Awake, interactive, not in distress Neck : Normal inspection, Supple Cardiovascular : RRR, no JVP, no lower extremity edema Respiratory : fair bilateral air entry decrease at Rt side basis, basal fine bilateral crackles, no wheezes Gastrointestinal: soft, lax, Normal bowel sounds, Non tender Skin : Warm, Dry Neurological : Alert & oriented to self and place, No focal deficit Objective Data Active Medications Acetaminophen (Acetaminophen 325 Mg Tablet) 650 mg PO Q6H PRN PRN Reason: Pain, Mild (Pain Scale 1-3), fever or headache Allopurinol (Allopurinol 300 Mg Tablet) 300 mg PO DAILY [facility] Last Admin: 01/21/24 07:38 Dose: 300 mg Documented By: SARAH Calcium Carbonate (Calcium Carbonate 750 Mg Tab.Chew) 750 mg PO Q4H PRN PRN Reason: Heartburn Last Admin: 01/20/24 10:51 Dose: 750 mg Documented By: NATHANAEL Digoxin (Digoxin 0.125 Mg Tablet) 0.125 mg PO DAILY [facility]; Protocol Last Admin: 01/21/24 07:37 Dose: 0.125 mg Documented By: SARAH Enoxaparin Sodium (Enoxaparin Sodium 40 Mg/0.4 Ml Syringe) 40 mg SUBCUT Q24H [facility] Last Admin: 01/21/24 07:38 Dose: 40 mg Documented By: SARAH Furosemide (Furosemide 20 Mg Tablet) 20 mg PO BID@0900,1800 [facility]; Protocol Last Admin: 01/21/24 07:37 Dose: 20 mg Documented By: SARAH Piperacillin Sod/Tazobactam (Sod 3.375 gm/ Sodium Chloride) 50 mls @ 100 mls/hr IV Q6H [facility] Last Infusion: 01/21/24 08:27 Dose: Infused Documented By: SARAH Magnesium Hydroxide (Milk Of Magnesia 30 Ml Oral.Susp) 30 ml PO DAILY PRN PRN Reason: Constipation Melatonin (Melatonin 3 Mg Tablet) 6 mg PO BEDTIME PRN PRN Reason: Insomnia Metoprolol Succinate (Metoprolol Succinate Er 50 Mg Tab.Er.24h) 50 mg PO DAILY [facility]; Protocol Last Admin: 01/21/24 07:37 Dose: 50 mg Documented By: SARAH Omeprazole (Omeprazole 20 Mg Capsule.Dr) 20 mg PO DAILY@0630 [facility] Last Admin: 01/21/24 06:20 Dose: 20 mg Documented By: ANTOIC Sertraline HCl (Sertraline Hcl 100 Mg Tablet) 100 mg PO DAILY [facility] Last Admin: 01/21/24 07:37 Dose: 100 mg Documented By: SARAH Sodium Chloride (0.9 % Sodium Chloride Flush 3 Ml Syringe) 3 ml IVFLUSH QSHIFT [facility] Last Admin: 01/21/24 07:42 Dose: 3 ml Documented By: SARAH Valsartan (Valsartan 40 Mg Tablet) 40 mg PO BID [facility]; Protocol Last Admin: 01/21/24 07:38 Dose: 40 mg Documented By: SARAH Labs 01/21/24 06:47 01/21/24 06:47 Labs: Laboratory Results - last 24 hr 01/21/24 06:47 MCV 88.1 MCH 29.8 MCHC 33.9 RDW 16.1 H Plt Count 261 MPV 10.4 Absolute Nucleated RBC 0.000 Nucleated RBC % (auto) 0.0 Anion Gap 15 Estim Creat Clear Calc 62.8 Estimated GFR > 60 Random Glucose 166 H Calcium 8.6 B-Natriuretic Peptide 2327 H Microbiology Microbiology Results: Microbiology 01/19/24 21:49 Urine Culture - Final Urine clean catch - Clean Catch Midstream 01/19/24 21:36 Blood Culture - Preliminary Blood - Venous No growth after 24 hours. 01/19/24 21:27 Blood Culture - Preliminary Blood - Venous No growth after 24 hours. 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 Quality Stroke Does the patient have a stroke diagnosis?: No VTE Prior VTE?: No VTE Risk Level:: Medical - moderate - high VTE Device Contraindication: Treatment Not Indicated VTE Drug Contraindication: N/A - Med Ordered
[2024-01-21] MEDS: ondansetron HCL 4 MG/2 ML VIAL IVPUSH (13:24)
--- NOTE | 2024-01-21 16:09 | MHC.CM.PN ---
CM ATTEMPTED TO MEET WITH PT WHO WAS SLEEPING CM CALLED PTS DAUGHTER, EAMON [phone] SHE REPORTS THE PT LIVES ALONE SHE SAYS HE WAS DISCHARGED FROM [place] AT [place] ON MONDAY AND SHE WAS STAYING WITH HIM HE WAS WAITING FOR [facility] TO START BUT ENDED UP HERE BEFORE THEY CALLED SHE SAYS HE HAS A CANE AND WALKER BUT AT [facility] DOES NOT USE EITHER HIS HCP IS ON FILE AND PCP IS SIDNEY GARCIA IMM DELIVERED EAMON SAYS PT WAS VERY WEAK SYSTEMS LIBRARIAN SHE IS WORRIED HE WILL NEED STR AGAIN BUT DOES NOT WANT HIM AT [facility] AGAIN SHE WILL BE GOING TO [employer] TOMORROW AND IS ALSO LOOKING AT [facility]
[2024-01-21 17:38] LABS: Glucose, Whole Blood 121 mg/dL (60-115)
--- NOTE | 2024-01-21 17:39 | PC.NURSE ---
Pt found to be unresponsive to verbal and painful stimuli, Rapid response called at 1720, at bedside, Pt remains somnolent, eyes fluttering to sternal rub and name, retracting lower extremities from painful stimuli, respirations even and unnlabored, VSS, Afib with occasional PVC's on Tele, Pt does not appear to be in distress, EKG and labs obtained, Pt put on 2L o2 via NC.
[2024-01-21 18:08] LABS: Hematocrit 30.5 % (42.0-52.0); Hemoglobin 10.3 g/dl (14.0-18.0); Mean Corpuscular HGB Conc 33.8 g/dl (31.0-36.0); Mean Corpuscular Volume 88.9 fL (80.0-98.0); Mean Platelet Volume 10.1 fL (9.4-12.4); Platelet Count 260 X10*3/uL (160-400); Red Blood Count 3.43 X10*6/uL (4.60-5.80); Red Cell Distribution Width 16.3 % (11.0-16.0); White Blood Count 9.7 X10*3/uL (4.8-10.8)
[2024-01-21 18:13] LABS: VBG Base Excess 11.8 mmol/L; VBG HCO3 35 mmol/L (22-26); VBG pCO2 43 mmHg; VBG pH 7.52 (7.32-7.43); VBG pO2 116 mmHg
[2024-01-21 18:14] LABS: Venous Blood Gas Refer to POC result
[2024-01-21 18:18] LABS: Ammonia 29 umol/L (13-55)
[2024-01-21 18:24] LABS: Anion Gap 12 (12-20); Blood Urea Nitrogen 13 mg/dL (9-16); Calcium 8.5 mg/dL (8.4-10.2); Carbon Dioxide 30 mmol/L (22-29); Chloride 103 mmol/L (96-108); Creatinine Clr Calc Pharmacy 61.4; Estimated Glomerular Filt Rate > 60; Glucose Random 120 mg/dL (60-115); Sodium 142 mmol/L (135-145)
--- NOTE | 2024-01-21 19:18 | PM.EVENT ---
Event Note Date of Service: 01/21/24 Event Note: Rapid response was called for patient with altered mentation for patient who was no longer responding to verbal stimuli. Earlier in the day patient was awake, alert, and interactive. During rapid response patient responded to painful stimuli only. Opened eyes, though would fall back asleep immediately. Nonverbal, not answering questions or following commands. Vital signs stable: Patient afebrile, pulse rate in the 70s respiratory rate 19, BP 159/79, satting at 94% on RA. Telemetry showed patient in AFib with frequent PVCs. CBC, BNP, ammonia, VBG, and EKG ordered. CBC unremarkable. BNP showing potassium of 3.0, otherwise grossly unremarkable. Bicarb 30, ammonia WNL at 29. VBG showing pH of 7.52 with bicarb of 35 and pCO2 43. Will supplement with potassium 40 mEq IV. Time Spent With Patient Time: Total time managing care of this patient today ____ minutes.
[2024-01-21] MEDS: Piperacillin Sodium/Tazobactam 4.5 GM in 0.9 % Sodium Chloride 100 ML IV (20:17)
[2024-01-22] VITALS (8 sets, daily range): BP systolic 132–181; BP diastolic 67–88; PULSE 52–70; RESP 16–20; TEMP 36.2–36.9; O2SAT 92–98
[2024-01-22] MEDS: Piperacillin Sodium/Tazobactam 4.5 GM in 0.9 % Sodium Chloride 100 ML IV ×4 (01:35→20:54)
[2024-01-22 06:52] LABS: Hematocrit 31.1 % (42.0-52.0); Mean Corpuscular HGB Conc 32.2 g/dl (31.0-36.0); Mean Corpuscular Hemoglobin 29.2 pg (27.0-33.0); Mean Corpuscular Volume 90.7 fL (80.0-98.0); Mean Platelet Volume 10.4 fL (9.4-12.4); Platelet Count 256 X10*3/uL (160-400); Red Blood Count 3.43 X10*6/uL (4.60-5.80); Red Cell Distribution Width 16.3 % (11.0-16.0); White Blood Count 8.8 X10*3/uL (4.8-10.8)
[2024-01-22 06:53] LABS: Anion Gap 14 (12-20); Blood Urea Nitrogen 11 mg/dL (9-16); Calcium 8.4 mg/dL (8.4-10.2); Carbon Dioxide 28 mmol/L (22-29); Chloride 105 mmol/L (96-108); Creatinine Clr Calc Pharmacy 62.8; Estimated Glomerular Filt Rate > 60; Glucose Random 111 mg/dL (60-115); Potassium 3.3 mmol/L (3.3-5.1); Sodium 144 mmol/L (135-145)
[2024-01-22] MEDS: Digoxin 0.125 MG TABLET PO (08:53)
[2024-01-22] MEDS: Valsartan 40 MG TABLET PO ×2 (08:53→21:02)
[2024-01-22] MEDS: allopurinoL 300 MG TABLET PO (08:54)
[2024-01-22] MEDS: Sertraline HCL 100 MG TABLET PO (08:54)
[2024-01-22] MEDS: 0.9 % Sodium Chloride Flush 3 ML SYRINGE IVFLUSH ×3 (08:54→20:56)
[2024-01-22] MEDS: Furosemide 20 MG TABLET PO ×2 (08:54→16:19)
[2024-01-22] MEDS: Lidocaine HCl 1 % MPF 5 ML VIAL SUBCUT (10:39)
--- NOTE | 2024-01-22 11:10 | MHC.CM.PN ---
Per Rounds discussion, Patient is not yet medically cleared for dc. Pt is recommending STR and referrals have been made to facilities if interest ([facility] & [facility]); CM will follow.
[2024-01-22 11:14] LABS: MN% 90.8 %; PMN% 9.2 %; WBC Pleural Fluid 0.502 X10*3/uL
[2024-01-22 11:20] LABS: RBC Pleural Fluid < 0.002 X10*6/uL
[2024-01-22 12:01] LABS: BF Shift QC OK YES; Basophils Pleural Fluid 1 %; Lymphocytes Pleural Fluid 23 %; Man Diluent Bkgrd OK YES; Monocytes Pleural Fluid 2 %; Neutrophils Pleural Fluid 7 %; Other Cells Plerual Fl 67 %
--- NOTE | 2024-01-22 12:07 | HO.PM.IMPN ---
Subjective Subjective Date of Service: 01/22/24 Interval History: seen and evaluated this morning denies any fever or chills breathing better but still having swallowing difficulties with liquids no other events Review of Systems Review of Systems: Yes all other systems are reviewed and are negative Physical Exam Vital Signs: Vital Signs: Last Vital Signs Temp 97.2 F 01/22/24 11:48 Pulse 54 01/22/24 11:48 Resp 16 01/22/24 11:48 BP 153/67 H 01/22/24 11:48 Pulse Ox 97 01/22/24 11:48 O2 Del Method Nasal Cannula 01/22/24 11:48 O2 Flow Rate 2 01/22/24 11:48 Oxygen Flow Rate 2 01/21/24 17:39 BMI result Body Mass Index 28.9 Const: Other: Constitutional : Awake, interactive, not in distress Neck : Normal inspection, Supple Cardiovascular : RRR, no JVP, no lower extremity edema Respiratory : fair bilateral air entry decrease at Rt side basis, basal fine bilateral crackles, no wheezes Gastrointestinal: soft, lax, Normal bowel sounds, Non tender Skin : Warm, Dry Neurological : Alert & oriented to self and place, No focal deficit Objective Data Active Medications Acetaminophen (Acetaminophen 325 Mg Tablet) 650 mg PO Q6H PRN PRN Reason: Pain, Mild (Pain Scale 1-3), fever or headache Allopurinol (Allopurinol 300 Mg Tablet) 300 mg PO DAILY [facility] Last Admin: 01/22/24 08:54 Dose: 300 mg Documented By: VISHNU Calcium Carbonate (Calcium Carbonate 750 Mg Tab.Chew) 750 mg PO Q4H PRN PRN Reason: Heartburn Last Admin: 01/20/24 10:51 Dose: 750 mg Documented By: NATHANAEL Digoxin (Digoxin 0.125 Mg Tablet) 0.125 mg PO DAILY [facility]; Protocol Last Admin: 01/22/24 08:53 Dose: 0.125 mg Documented By: VISHNU Enoxaparin Sodium (Enoxaparin Sodium 40 Mg/0.4 Ml Syringe) 40 mg SUBCUT Q24H [facility] Last Admin: 01/21/24 07:38 Dose: 40 mg Furosemide (Furosemide 20 Mg Tablet) 20 mg PO BID@0900,1800 [facility]; Protocol Last Admin: 01/22/24 08:54 Dose: 20 mg Documented By: VISHNU Piperacillin Sod/Tazobactam (Sod 4.5 gm/ Sodium Chloride) 100 mls @ 200 mls/hr IV Q6H [facility] Last Infusion: 01/22/24 09:43 Dose: Infused Documented By: VISHNU Magnesium Hydroxide (Milk Of Magnesia 30 Ml Oral.Susp) 30 ml PO DAILY PRN PRN Reason: Constipation Megestrol Acetate (Megestrol Acetate 400 Mg/10 Ml Oral.Susp) 400 mg PO DAILY [facility] Melatonin (Melatonin 3 Mg Tablet) 6 mg PO BEDTIME PRN PRN Reason: Insomnia Omeprazole (Omeprazole 20 Mg Capsule.Dr) 20 mg PO DAILY@0630 [facility] Last Admin: 01/22/24 05:31 Dose: Not Given Documented By: LUCRETIA Non-Admin Reason: Patient Refused Ondansetron HCl (Ondansetron Hcl 4 Mg/2 Ml Vial) 4 mg IVPUSH Q8H PRN PRN Reason: Nausea and Vomiting Last Admin: 01/21/24 13:24 Dose: 4 mg Documented By: SARAH Sertraline HCl (Sertraline Hcl 100 Mg Tablet) 100 mg PO DAILY [facility] Last Admin: 01/22/24 08:54 Dose: 100 mg Documented By: VISHNU Sodium Chloride (0.9 % Sodium Chloride Flush 3 Ml Syringe) 3 ml IVFLUSH QSHIFT [facility] Last Admin: 01/22/24 08:54 Dose: 3 ml Documented By: VISHNU Valsartan (Valsartan 40 Mg Tablet) 40 mg PO BID [facility]; Protocol Last Admin: 01/22/24 08:53 Dose: 40 mg Documented By: VISHNU Labs 01/22/24 06:11 01/22/24 06:11 Labs: Laboratory Results - last 24 hr 01/21/24 01/21/24 01/21/24 17:22 18:00 18:09 MCV 88.9 MCH 30.0 MCHC 33.8 RDW 16.3 H Plt Count 260 MPV 10.1 Absolute Nucleated RBC 0.000 Nucleated RBC % (auto) 0.0 VBG pH 7.52 H VBG pCO2 43 VBG pO2 116 VBG HCO3 35 H VBG O2 Saturation 100.0 VBG Base Excess 11.8 Anion Gap 12 Estim Creat Clear Calc 61.4 Estimated GFR > 60 POC Glucose 121 H Random Glucose 120 H Calcium 8.5 Ammonia 29 Pleural WBC Pleural RBC Pleural Neutrophils Pleural Lymphocytes Pleural Monocytes Pleural Basophils Pleural Other Cells 01/22/24 01/22/24 06:11 10:10 MCV 90.7 MCH 29.2 MCHC 32.2 RDW 16.3 H Plt Count 256 MPV 10.4 Absolute Nucleated RBC 0.000 Nucleated RBC % (auto) 0.0 VBG pH VBG pCO2 VBG pO2 VBG HCO3 VBG O2 Saturation VBG Base Excess Anion Gap 14 Estim Creat Clear Calc 62.8 Estimated GFR > 60 POC Glucose Random Glucose 111 Calcium 8.4 Ammonia Pleural WBC 0.502 Pleural RBC < 0.002 Pleural Neutrophils 7 Pleural Lymphocytes 23 Pleural Monocytes 2 Pleural Basophils 1 Pleural Other Cells 67 Microbiology Microbiology Results: Microbiology 01/19/24 21:36 Blood Culture - Preliminary Blood - Venous No growth after 48 hours. 01/19/24 21:27 Blood Culture - Preliminary Blood - Venous No growth after 48 hours. 01/19/24 21:49 Urine Culture - Final Urine clean catch - Clean Catch Midstream Assessment and Plan (1) Aspiration pneumonia of both lower lobes: Status: Acute (2) Swallowing problem: Status: Acute (3) FTT (failure to thrive) in adult: Status: Acute Plan 83M PMH remote history of etoh dependence, hfref, mild cognitive impairment, mood disorder, bph, gout, recent pericardial effusion with tamponade 12/2023 complicated by pafib presented with weakness sepsis due to aspiration pneumonia with right sided effusion Sepsis resolved continue iv zosyn pending cultures hold eliquis, IR for right thoracentesis today Recent Pathology report from cardiac tamponad: 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 Quality Stroke Does the patient have a stroke diagnosis?: No VTE Prior VTE?: No VTE Risk Level:: Medical - moderate - high VTE Device Contraindication: Treatment Not Indicated VTE Drug Contraindication: N/A - Med Ordered
[2024-01-22] MEDS: Enoxaparin Sodium 40 MG/0.4 ML SYRINGE SUBCUT (12:14)
--- NOTE | 2024-01-22 13:43 | PM.CNCAR ---
History of Present Illness History of Present Illness Date of Service: 01/22/24 Requesting physician: Judy Stafford Chief complaint: ftt, pna Narrative: 83-year-old gentleman with failure to thrive and pneumonia on antibiotics. He recently presented to us with tamponade and has heart failure with reduced ejection fraction. He had a pericardial window done and subsequent echocardiography showed small pericardial effusion. He is now presenting because he has not been eating and drinking and was feeling weak and tired. He has been diagnosed with pneumonia and is on antibiotics. He is saying he is feeling little better today. Denying any chest pain or shortness of breath. Clinically not in tamponade and is in fact hypertensive. [facility] Past Medical History Medical History Acute pericardial effusion COPD (chronic obstructive pulmonary disease) CHF (congestive heart failure) Graves disease Hypertension Vertigo Dizziness Surgical History Surgical History No pertinent past surgical history H/O endoscopy H/O colonoscopy Social History Social History Household Members: None Housing: House Do you presently have visiting nurse or other home services: Yes Alcohol intake: former Patient Tobacco Use Status: Former Tobacco user Tobacco use type: Cigarette Years Smoked: 30 e-Cigarette/Vaping Use: Never Used Second Hand Smoke Exposure: No Advance Directives Date on File: 03/08/23 service: Yes Meds Allergies Allergy/AdvReac Type Severity Reaction Status Date / Time No Known Allergies Allergy Verified 01/19/24 15:24 Active Medications: Current Medications Acetaminophen (Acetaminophen 325 Mg Tablet) 650 mg PO Q6H PRN PRN Reason: Pain, Mild (Pain Scale 1-3), fever or headache Allopurinol (Allopurinol 300 Mg Tablet) 300 mg PO DAILY [facility] Last Admin: 01/22/24 08:54 Dose: 300 mg Calcium Carbonate (Calcium Carbonate 750 Mg Tab.Chew) 750 mg PO Q4H PRN PRN Reason: Heartburn Last Admin: 01/20/24 10:51 Dose: 750 mg Digoxin (Digoxin 0.125 Mg Tablet) 0.125 mg PO DAILY [facility]; Protocol Last Admin: 01/22/24 08:53 Dose: 0.125 mg Enoxaparin Sodium (Enoxaparin Sodium 40 Mg/0.4 Ml Syringe) 40 mg SUBCUT Q24H [facility] Last Admin: 01/22/24 12:14 Dose: 40 mg Furosemide (Furosemide 20 Mg Tablet) 20 mg PO BID@0900,1800 [facility]; Protocol Last Admin: 01/22/24 08:54 Dose: 20 mg Piperacillin Sod/Tazobactam (Sod 4.5 gm/ Sodium Chloride) 100 mls @ 200 mls/hr IV Q6H [facility] Last Infusion: 01/22/24 09:43 Dose: Infused Magnesium Hydroxide (Milk Of Magnesia 30 Ml Oral.Susp) 30 ml PO DAILY PRN PRN Reason: Constipation Megestrol Acetate (Megestrol Acetate 400 Mg/10 Ml Oral.Susp) 400 mg PO DAILY [facility] Melatonin (Melatonin 3 Mg Tablet) 6 mg PO BEDTIME PRN PRN Reason: Insomnia Omeprazole (Omeprazole 20 Mg Capsule.Dr) 20 mg PO DAILY@0630 [facility] Last Admin: 01/22/24 05:31 Dose: Not Given Ondansetron HCl (Ondansetron Hcl 4 Mg/2 Ml Vial) 4 mg IVPUSH Q8H PRN PRN Reason: Nausea and Vomiting Last Admin: 01/21/24 13:24 Dose: 4 mg Sertraline HCl (Sertraline Hcl 100 Mg Tablet) 100 mg PO DAILY [facility] Last Admin: 01/22/24 08:54 Dose: 100 mg Sodium Chloride (0.9 % Sodium Chloride Flush 3 Ml Syringe) 3 ml IVFLUSH QSHIFT [facility] Last Admin: 01/22/24 08:54 Dose: 3 ml Valsartan (Valsartan 40 Mg Tablet) 40 mg PO BID [facility]; Protocol Last Admin: 01/22/24 08:53 Dose: 40 mg Home Medications ?Medication ?Instructions ?Recorded ?Confirmed ?Last Taken ?Type allopurinol 300 mg tablet 300 mg PO DAILY 03/01/23 01/20/24 12/20/23 History omeprazole 20 mg capsule,delayed 20 mg PO DAILY@0630 03/01/23 01/20/24 12/20/23 History release sertraline 100 mg tablet 150 mg PO DAILY 12/22/23 01/20/24 12/20/23 History acetaminophen 325 mg tablet 650 mg PO Q4H PRN Pain (Scale 01/20/24 01/20/24 Unknown History Score 1-3) Physical Exam Vital Signs: Vital Signs: Last Vital Signs Temp 97.2 F 01/22/24 11:48 Pulse 54 01/22/24 11:48 Resp 16 01/22/24 11:48 BP 153/67 H 01/22/24 11:48 Pulse Ox 97 01/22/24 11:48 O2 Del Method Nasal Cannula 01/22/24 11:48 O2 Flow Rate 2 01/22/24 11:48 Oxygen Flow Rate 2 01/21/24 17:39 BMI result Body Mass Index 28.9 GENERAL APPEARANCE: Dry mucous membranes. NECK: no carotid bruit, no jugular venous distention. SKIN: no suspicious lesions, warm and dry. HEART: no murmurs, regular rate and rhythm. LUNGS: clear to auscultation bilaterally. ABDOMEN: soft, nontender. EXTREMITIES: no edema. PERIPHERAL PULSES: equal. NEUROLOGIC: No gross deficits, AAO X 3 Objective Labs and Meds 01/22/24 06:11 01/22/24 06:11 Lab results: Laboratory Results - last 24 hr 01/21/24 01/21/24 01/21/24 17:22 18:00 18:09 WBC 9.7 RBC 3.43 L Hgb 10.3 L Hct 30.5 L MCV 88.9 MCH 30.0 MCHC 33.8 RDW 16.3 H Plt Count 260 MPV 10.1 Absolute Nucleated RBC 0.000 Nucleated RBC % (auto) 0.0 VBG pH 7.52 H VBG pCO2 43 VBG pO2 116 VBG HCO3 35 H VBG O2 Saturation 100.0 VBG Base Excess 11.8 Sodium 142 Potassium 3.0 L Chloride 103 Carbon Dioxide 30 H Anion Gap 12 BUN 13 Creatinine 0.88 Estim Creat Clear Calc 61.4 Estimated GFR > 60 POC Glucose 121 H Random Glucose 120 H Calcium 8.5 Ammonia 29 Pleural WBC Pleural RBC Pleural Neutrophils Pleural Lymphocytes Pleural Monocytes Pleural Basophils Pleural Other Cells 01/22/24 01/22/24 06:11 10:10 WBC 8.8 RBC 3.43 L Hgb 10.0 L Hct 31.1 L MCV 90.7 MCH 29.2 MCHC 32.2 RDW 16.3 H Plt Count 256 MPV 10.4 Absolute Nucleated RBC 0.000 Nucleated RBC % (auto) 0.0 VBG pH VBG pCO2 VBG pO2 VBG HCO3 VBG O2 Saturation VBG Base Excess Sodium 144 Potassium 3.3 Chloride 105 Carbon Dioxide 28 Anion Gap 14 BUN 11 Creatinine 0.86 Estim Creat Clear Calc 62.8 Estimated GFR > 60 POC Glucose Random Glucose 111 Calcium 8.4 Ammonia Pleural WBC 0.502 Pleural RBC < 0.002 Pleural Neutrophils 7 Pleural Lymphocytes 23 Pleural Monocytes 2 Pleural Basophils 1 Pleural Other Cells 67 Assessment and Plan (1) FTT (failure to thrive) in adult: Status: Acute (2) Aspiration pneumonia of both lower lobes: Status: Acute (3) Atrial fibrillation: Status: Acute Plan [age] year gentleman with chronic atrial fibrillation, mild cardiomyopathy by echocardiography and recent presentation for pericardial tamponade for which he had pericardial window done. He is presenting with failure to thrive and has not been eating and drinking. Also had aspiration in the hospital and is currently on antibiotics. Clinically not in tamponade and not in CHF. Antibiotics and nutritional support. Can check limited echo to reassess the pericardial effusion. Thank you for allowing me to participate in the care of your patient. Please feel free to contact me if you have any questions. Procedures Date of Service Date of Service: 01/22/24
[2024-01-22 15:28] LABS: Lactate Dehydrogenase 207 U/L (118-273)
[2024-01-22 15:34] LABS: Prostate Specific Antigen 4.43 ng/mL (<0.05-4.0)
--- NOTE | 2024-01-22 15:55 | MHC.SL.SWA ---
Speech Pathologist Impression: Risk of Aspiration Risk of Aspiration Due to: History of Pneumonia Reduced Cognition Dysphasia Diet Status: Upgrade liquids from HT to THIN, continue with full supervision Liquid Consistency and Strategies for Safe Swallow: Liquid Intake Recommendation: Thin Liquid Intake Strategies: Small Sips No Straws Solid Food Consistency: Dietary Recommendations: Regular Additional Modifications to Solid Foods: Discussed aspiration precautions with patient and family: ensure optimal position when eating/drinking, take small individual sips, avoid the use of straws. Recommend direct supervision to monitor upgrade. Patient may benefit from RD consult given reports of decreased appetite, poor PO intake, and unintended weight loss. Oral Medication Intake: Whole with Puree Please contact the pharmacy regarding appropriate crushable or liquid drug formulations that are available whenever modified delivery is recommended. Compensatory Strategies and Precautions to be Taken for Safe Swallow: Sitting Upright (90 deg) No Straw Small Bites and Sips Alternate Liquids/Solids Rate of Ingestion Change Avoid Specific Foods Supervision While Eating and Drinking for Safe Swallow: Total Supervision (1:1) Foods to Avoid: Mixed consistencies Swallowing Recommended Treatments: Compens. Strategy Educat. Recommendation for Speech: Inpatient Speech Therapy Comment: 1:1 supervision and aspiration precautions Frequency/Duration: PRN M-F Date Range for Service Req: Timeline to reassess: Vinyl Flooring Installer Clinican/Clinical Fellow: No Supervisory Statement: I have reviewed and agree with the student/clinical fellow's documentation: N/A Speech Language Pathologist: Denise Franco M.A., CCC-PLANT ASSIGNER
[2024-01-22] MEDS: Megestrol Acetate 400 MG/10 ML ORAL.SUSP PO (16:19)
[2024-01-23] VITALS (9 sets, daily range): BP systolic 135–178; BP diastolic 61–84; PULSE 51–76; RESP 18–20; TEMP 36.5–37.2; O2SAT 94–98
[2024-01-23] MEDS: Piperacillin Sodium/Tazobactam 4.5 GM in 0.9 % Sodium Chloride 100 ML IV ×4 (03:24→20:30)
[2024-01-23] MEDS: Omeprazole 20 MG CAPSULE.DR PO (06:14)
[2024-01-23] MEDS: Digoxin 0.125 MG TABLET PO (08:02)
[2024-01-23] MEDS: Valsartan 40 MG TABLET PO ×2 (08:02→20:33)
[2024-01-23] MEDS: allopurinoL 300 MG TABLET PO (08:02)
[2024-01-23] MEDS: Megestrol Acetate 400 MG/10 ML ORAL.SUSP PO (08:02)
[2024-01-23] MEDS: Furosemide 20 MG TABLET PO ×2 (08:03→17:09)
[2024-01-23] MEDS: Enoxaparin Sodium 40 MG/0.4 ML SYRINGE SUBCUT (08:03)
[2024-01-23] MEDS: 0.9 % Sodium Chloride Flush 3 ML SYRINGE IVFLUSH ×2 (08:03→17:10)
[2024-01-23] MEDS: Sertraline HCL 100 MG TABLET PO (08:03)
[2024-01-23 08:26] LABS: Thyroid Stimulating Hormone 0.94 uIU/mL (0.32-4.0)
--- NOTE | 2024-01-23 10:03 | ECG_ITS ---
Test Reason : Question ST depresion Blood Pressure : / mmHG Vent. Rate : 065 BPM Atrial Rate : 000 BPM P-R Int : 000 ms QRS Dur : 098 ms QT Int : 378 ms P-R-T Axes : 000 -18 183 degrees QTc Int : 393 ms Atrial fibrillation Left ventricular hypertrophy with repolarization abnormality ( R in aVL , [place] product ) Cannot rule out Septal infarct , age undetermined Possible Lateral infarct , age undetermined Abnormal ECG When compared with ECG of 19-JAN-2024 15:21, Minimal criteria for Septal infarct are now Present Borderline criteria for Lateral infarct are now Present ST elevation has replaced ST depression in Anterior leads T wave inversion no longer evident in Anterior leads Referred By: Judy Stafford Electronically Signed By:SIDNEY BUSTILLO
[2024-01-23] MEDS: amLODIPine Besylate 5 MG TABLET PO (10:30)
[2024-01-23] MEDS: Metoprolol Succinate ER 25 MG TAB.ER.24H PO (10:30)
--- NOTE | 2024-01-23 10:45 | P.PNIM_ITS ---
Subjective Subjective Date of Service: 01/23/24 Interval History: seen and evaluated this morning denies any fever or chills Feels better, eating more and more alert Very weak with ambulation no other events Review of Systems Review of Systems: Yes all other systems are reviewed and are negative Physical Exam 2 Vital Signs: Vital Signs: Last Vital Signs Temp 98.3 F 01/23/24 07:32 Pulse 76 01/23/24 10:30 Resp 20 01/23/24 07:32 BP 135/61 01/23/24 10:30 Pulse Ox 97 01/23/24 07:32 O2 Del Method Nasal Cannula 01/23/24 07:32 O2 Flow Rate 2 01/23/24 07:32 Oxygen Flow Rate 2 01/21/24 17:39 BMI result Body Mass Index 28.9 Const: Other: Constitutional : Awake, interactive, not in distress Neck : Normal inspection, Supple Cardiovascular : RRR, no JVP, no lower extremity edema Respiratory : fair bilateral air entry decrease at Rt side basis, decreased basal fine bilateral crackles, no wheezes Gastrointestinal: soft, lax, Normal bowel sounds, Non tender Skin : Warm, Dry Neurological : Alert & oriented to self and place, No focal deficit Objective Data Active Medications Acetaminophen (Acetaminophen 325 Mg Tablet) 650 mg PO Q6H PRN PRN Reason: Pain, Mild (Pain Scale 1-3), fever or headache Allopurinol (Allopurinol 300 Mg Tablet) 300 mg PO DAILY [facility] Last Admin: 01/23/24 08:02 Dose: 300 mg Documented By: KATHRYN Amlodipine Besylate (Amlodipine Besylate 5 Mg Tablet) 5 mg PO DAILY [facility]; Protocol Last Admin: 01/23/24 10:30 Dose: 5 mg Documented By: KATHRYN Calcium Carbonate (Calcium Carbonate 750 Mg Tab.Chew) 750 mg PO Q4H PRN PRN Reason: Heartburn Last Admin: 01/20/24 10:51 Dose: 750 mg Documented By: NATHANAEL Digoxin (Digoxin 0.125 Mg Tablet) 0.125 mg PO DAILY [facility]; Protocol Last Admin: 01/23/24 08:02 Dose: 0.125 mg Documented By: KATHRYN Enoxaparin Sodium (Enoxaparin Sodium 40 Mg/0.4 Ml Syringe) 40 mg SUBCUT Q24H [facility] Last Admin: 01/23/24 08:03 Dose: 40 mg Documented By: KATHRYN Furosemide (Furosemide 20 Mg Tablet) 20 mg PO BID@0900,1800 [facility]; Protocol Last Admin: 01/23/24 08:03 Dose: 20 mg Documented By: KATHRYN Piperacillin Sod/Tazobactam (Sod 4.5 gm/ Sodium Chloride) 100 mls @ 200 mls/hr IV Q6H [facility] Last Infusion: 01/23/24 08:49 Dose: Infused Documented By: KATHRYN Magnesium Hydroxide (Milk Of Magnesia 30 Ml Oral.Susp) 30 ml PO DAILY PRN PRN Reason: Constipation Megestrol Acetate (Megestrol Acetate 400 Mg/10 Ml Oral.Susp) 400 mg PO DAILY [facility] Last Admin: 01/23/24 08:02 Dose: 400 mg Documented By: KATHRYN Melatonin (Melatonin 3 Mg Tablet) 6 mg PO BEDTIME PRN PRN Reason: Insomnia Metoprolol Succinate (Metoprolol Succinate Er 25 Mg Tab.Er.24h) 25 mg PO DAILY [facility]; Protocol Last Admin: 01/23/24 10:30 Dose: 25 mg Documented By: KATHRYN Omeprazole (Omeprazole 20 Mg Capsule.Dr) 20 mg PO DAILY@0630 [facility] Last Admin: 01/23/24 06:14 Dose: 20 mg Documented By: MARGARITO Ondansetron HCl (Ondansetron Hcl 4 Mg/2 Ml Vial) 4 mg IVPUSH Q8H PRN PRN Reason: Nausea and Vomiting Last Admin: 01/21/24 13:24 Dose: 4 mg Documented By: SARAH Sertraline HCl (Sertraline Hcl 100 Mg Tablet) 100 mg PO DAILY [facility] Last Admin: 01/23/24 08:03 Dose: 100 mg Documented By: KATHRYN Sodium Chloride (0.9 % Sodium Chloride Flush 3 Ml Syringe) 3 ml IVFLUSH QSHIFT [facility] Last Admin: 01/23/24 08:03 Dose: 3 ml Documented By: KATHRYN Valsartan (Valsartan 40 Mg Tablet) 40 mg PO BID [facility]; Protocol Last Admin: 01/23/24 08:02 Dose: 40 mg Documented By: KATHRYN Labs 01/22/24 06:11 01/22/24 06:11 Labs: Laboratory Results - last 24 hr 01/22/24 01/22/24 10:10 14:32 Lactate Dehydrogenase 207 Carcinoembryonic Ag 2.70 Prostate Specific Ag 4.43 H TSH 0.94 Pleural WBC 0.502 Pleural RBC < 0.002 Pleural Neutrophils 7 Pleural Lymphocytes 23 Pleural Monocytes 2 Pleural Basophils 1 Pleural Other Cells 67 Microbiology Microbiology Results: Microbiology 01/22/24 10:10 Gram Stain - Final Thoracentesis Fluid Anaerobic Culture - Preliminary No growth to date. Body Fluid Culture - Preliminary No growth to date. 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 discussed with cardiology who doesnt think treatment is needed for pericarditis unless patient reports pain Cardiology input appreciated wean O2 down as tolerated Swallowing problem emr implementation specialist eval, thickended liquids were not tolerated by the patient, try thin liquids continue to follow FTT in elderly Start Megace , eating 50-75% of meals Cancer screening negative CEA, LDH, mildly elevated PSA CT Abd, Ct chest negative for any masses needs PT pafib with symptomatic Bradycardia Decrease toprol XL to 25 mg daily Continue digoxin restart Elquis chronic systolic chf with recent tamponade valsartan, lasix, Toprol Cardiology following Start Amlodipine 5 mg for BP control mild cognitive impairment at baseline mood disorder zoloft gout allopurinol dvt prophylaxis - eliquis DNR/DNI Patient with significant weakness and pneumonia requiring IV antibiotics and close monitoring therefore will require overnight hospital stay pending SNF placement and weaning down O2 . Quality Stroke Does the patient have a stroke diagnosis?: No VTE Prior VTE?: No VTE Risk Level:: Medical - moderate - high VTE Device Contraindication: Treatment Not Indicated VTE Drug Contraindication: N/A - Med Ordered
--- NOTE | 2024-01-23 11:56 | MHC.CM.PN ---
Per ROUNDS, Patient is medically cleared for dc to SNF/STR today;, CM has asked [facility] to initiate auth. CM will follow.
--- NOTE | 2024-01-23 13:51 | MHC.CM.PN ---
Per MD, Patient is medically cleared for dc to SNF/STR today. Patient will dc to his first choice facility/[facility] [place] today at 6:30PM, via [facility]. MADHURI spoke with Daughter/Dilcia @ [phone] and informed her of the dc plan. Dilcia had questions regarding cardiac med changes; MADHURI has asked MD to call her. MADHURI will follow.
[2024-01-23 13:54] LABS: Carbohydrate Antigen 19-9 22 U/mL (<34)
--- NOTE | 2024-01-23 14:13 | MHC.CM.PN ---
DC will be tomorrow at noon rather than today at 6:30; ,RN,Daughter, SNF,Transport are aware of the change.
--- NOTE | 2024-01-23 14:46 | MHC.SPEECHCO ---
ADVERTISING SPACE CLERK attempted x2 in am and pm, but Pt declined each time. Per CM note, anticipating discharge on current diet of Ground/Mech Altered Solids (NDD2) and Honey-Thick Liquids.
--- NOTE | 2024-01-23 15:07 | MHC.SL.DTX ---
Dysphagia Diet modifications: Last documented Solid diet consistencies: Regular Last documented Liquid consistency: Honey Thick Last documented Medication Administration: Changes made to current diet?: Yes Liquid Consistency and Strategies: Liquid Intake Recommendation: Thin Compensatory Strategies for Safe Swallow: Small Sips No Straws Compensatory Strategies for Safe Swallow(b): Sitting Upright (90 deg) No Straw Small Bites and Sips Alternate Liquids/Solids Rate of Ingestion Change Avoid Specific Foods Solid Food Consistency: Dietary Recommendations: Regular Additional Modifications to Solids: Ensure optimal position when eating/drinking, take small individual sips, avoid the use of straws. Recommend direct supervision to monitor upgrade. Patient may benefit from RD consult given reports of decreased appetite, poor PO intake, and unintended weight loss. Oral Medication Intake: Whole with Puree Strategies and Precautions to be Taken for Safe Swallow: Sitting Upright (90 deg) No Straw Small Bites and Sips Alternate Liquids/Solids Rate of Ingestion Change Avoid Specific Foods Supervision While Eating and/Drinking: Total Supervision (1:1) Foods to Avoid: Mixed consistencies Swallowing Recommended Treatments: Compens. Strategy Educat. Recommendation for Speech: Inpatient Speech Therapy Comment: 1:1 supervision and aspiration precautions Frequency/Duration: PRN M-F Date Range for Service Req: Timeline to reassess: Additional Comments: RN and family report patient is much more awake and alert today. Treatment: Pt was awake, upright in his recliner chair when TEST ENGINEERING MANAGER arrived. He reports that he had lunch, however when asked what he had - he did not remember (~2-3 hours earlier). Assessment: Discharged with baseline diet, TEST ENGINEERING MANAGER provided aspiration precautions. Mold Finisher Clinican/Clinical Fellow: No Supervisory Statement: I have reviewed and agree with the student/clinical fellow's documentation: N/A Speech Language Pathologist: Denise Franco M.A., [facility]-TEST ENGINEERING MANAGER
[2024-01-23] MEDS: Apixaban 5 MG TABLET PO (20:33)
[2024-01-24] MEDS: 0.9 % Sodium Chloride Flush 3 ML SYRINGE IVFLUSH ×3 (00:28→16:34)
[2024-01-24 00:56] VITALS: BP 158/78; PULSE 78
[2024-01-24] MEDS: Piperacillin Sodium/Tazobactam 4.5 GM in 0.9 % Sodium Chloride 100 ML IV ×3 (02:41→16:34)
[2024-01-24 03:29] VITALS: BP 166/82; PULSE 58; RESP 18; TEMP 36.5; O2SAT 94
[2024-01-24] MEDS: Omeprazole 20 MG CAPSULE.DR PO (06:22)
--- NOTE | 2024-01-24 07:00 | CA_ITS ---
Transthoracic Echocardiogram Patient (Last, First, Middle): Albert Tristan N Gender: Male Date of : 1940 Age: 83 Procedure Date: 01/24/2024 Procedure Type: Transthoracic Echocardiogram Location: [facility] [place] Height: 170.18 cm Weight: 81.19 kg BSA: 1.93 m2 Heart Rate: 73 bpm BP: 166 / 81 mmHg Engine Manager: SB Referring MD: Yash Cardoso MD Symptoms: follow up pericardial effusion Study Quality: Fair ECG Rhythm: Atrial Fibrillation Conclusions: - Normal left ventricular cavity size. There is normal left ventricular wall thickness. The left ventricular systolic function is mildly decreased. The visually estimated ejection fraction is between 40-45%. - Normal right ventricular cavity size and systolic function. - There is no evidence of pericardial effusion. Findings Left Ventricle Normal left ventricular cavity size. There is normal left ventricular wall thickness. The left ventricular systolic function is mildly decreased. The visually estimated ejection fraction is between 40-45%. Right Ventricle Normal right ventricular cavity size and systolic function. Venous The inferior vena cava is normal in size and collapses greater than 50% with inspiration. Pericardium/Pleural There is no evidence of pericardial effusion. Prior Study Comparison No significant change compared to prior study dated: 12/28/2023. Measurements 2D Linear Measurements IVSd: 1.46 0.6-0.9/0.6-1.0 cm LVIDd: 5.22 3.9-5.3/4.2-5.9 cm LVIDd Index: 2.70 2.4-3.2/2.2-3.1 cm/m2 LVIDs: 4.89 2.0-3.6 cm LVOT Diam: 2.50 3.0+(-)1.3 cm 2D Systolic Function EF 4C: 32.90 >55% LVOT LVOT Pk Juan: 0.86 LVOT Mn Juan: 0.56 LVOT VTI: 0.15 LVOT Pk Grad: 3.00 LVOT Mn Grad: 2.00 LVOT Diam: 2.50 LVOT Area: 4.91 Tricuspid Valve RA Press: 8.00 Updated in Other Vendor System with Status of Final Jean Holm MD electronically signed on 01/24/2024 6:14:29 PM with status of Final
[2024-01-24 07:38] LABS: Anion Gap 14 (12-20); Blood Urea Nitrogen 15 mg/dL (9-16); Calcium 8.3 mg/dL (8.4-10.2); Carbon Dioxide 27 mmol/L (22-29); Chloride 104 mmol/L (96-108); Creatinine Clr Calc Pharmacy 59.3; Estimated Glomerular Filt Rate > 60; Glucose Random 108 mg/dL (60-115); Potassium 2.6 mmol/L (3.3-5.1); Sodium 142 mmol/L (135-145)
[2024-01-24 08:00] VITALS: BP 166/81; PULSE 74; RESP 19; TEMP 36.3; O2SAT 97
[2024-01-24 08:12] LABS: Magnesium 1.9 mg/dL (1.6-2.6)
--- NOTE | 2024-01-24 08:18 | MHC.CM.PN ---
Per MD, Patient's K is 2.5; afternoon labs will be repeated and today's scheduled dc for noon has been put on hold. All involved parties have been notified of the change and CM will follow.
[2024-01-24] MEDS: Potassium Chloride/H20 10 MEQ/100 ML PIGGYBACK 100 MEQ IV ×4 (08:41→12:35)
[2024-01-24] MEDS: Megestrol Acetate 400 MG/10 ML ORAL.SUSP PO (08:42)
[2024-01-24] MEDS: allopurinoL 300 MG TABLET PO (08:42)
[2024-01-24] MEDS: Metoprolol Succinate ER 25 MG TAB.ER.24H PO (08:42)
[2024-01-24] MEDS: Valsartan 40 MG TABLET PO (08:42)
[2024-01-24] MEDS: Sertraline HCL 100 MG TABLET PO (08:42)
[2024-01-24] MEDS: Apixaban 5 MG TABLET PO (08:43)
[2024-01-24] MEDS: Potassium Chloride ER 20 MEQ TAB.ER.PRT 40 MEQ PO (08:43)
[2024-01-24] MEDS: Digoxin 0.125 MG TABLET PO (09:15)
--- NOTE | 2024-01-24 09:56 | P.PNIM_ITS ---
Subjective Subjective Date of Service: 01/24/24 Interval History: seen and evaluated this morning denies any fever or chills Feels better, eating more and more alert Very weak with ambulation no other events Review of Systems Review of Systems: Yes all other systems are reviewed and are negative Physical Exam 2 Vital Signs: Vital Signs: Last Vital Signs Temp 97.3 F 01/24/24 08:00 Pulse 74 01/24/24 08:00 Resp 19 01/24/24 08:00 BP 166/81 H 01/24/24 08:00 Pulse Ox 97 01/24/24 08:00 O2 Del Method Room Air 01/24/24 08:00 O2 Flow Rate 2 01/23/24 11: Oxygen Flow Rate 2 01/21/24 17:39 BMI result Body Mass Index 28.9 Const: Other: Constitutional : Awake, interactive, not in distress Neck : Normal inspection, Supple Cardiovascular : RRR, no JVP, no lower extremity edema Respiratory : fair bilateral air entry decrease at Rt side basis, decreased basal fine bilateral crackles, no wheezes Gastrointestinal: soft, lax, Normal bowel sounds, Non tender Skin : Warm, Dry Neurological : Alert & oriented to self and place, No focal deficit Objective Data Active Medications Acetaminophen (Acetaminophen 325 Mg Tablet) 650 mg PO Q6H PRN PRN Reason: Pain, Mild (Pain Scale 1-3), fever or headache Allopurinol (Allopurinol 300 Mg Tablet) 300 mg PO DAILY [facility] Last Admin: 01/24/24 08:42 Dose: 300 mg Documented By: ANALI Amlodipine Besylate (Amlodipine Besylate 5 Mg Tablet) 5 mg PO DAILY [facility]; Protocol Last Admin: 01/23/24 10:30 Dose: 5 mg Documented By: KATHRYN Apixaban (Apixaban 5 Mg Tablet) 5 mg PO BID [facility] Last Admin: 01/24/24 08:43 Dose: 5 mg Documented By: ANALI Calcium Carbonate (Calcium Carbonate 750 Mg Tab.Chew) 750 mg PO Q4H PRN PRN Reason: Heartburn Last Admin: 01/20/24 10:51 Dose: 750 mg Documented By: NATHANAEL Digoxin (Digoxin 0.125 Mg Tablet) 0.125 mg PO DAILY [facility]; Protocol Last Admin: 01/23/24 08:02 Dose: 0.125 mg Documented By: KATHRYN Furosemide (Furosemide 20 Mg Tablet) 20 mg PO BID@0900,1800 [facility]; Protocol Last Admin: 01/23/24 17:09 Dose: 20 mg Documented By: KAREN Piperacillin Sod/Tazobactam (Sod 4.5 gm/ Sodium Chloride) 100 mls @ 200 mls/hr IV Q6H [facility] Last Infusion: 01/24/24 03:11 Dose: Infused Documented By: FRANCI Potassium Chloride (Potassium Chloride/H20) 10 meq in 100 mls @ 100 mls/hr IV Q1H [facility] Stop: 01/24/24 11:59 Last Infusion: 01/24/24 09:49 Dose: Infused Documented By: ANALI Magnesium Hydroxide (Milk Of Magnesia 30 Ml Oral.Susp) 30 ml PO DAILY PRN PRN Reason: Constipation Megestrol Acetate (Megestrol Acetate 400 Mg/10 Ml Oral.Susp) 400 mg PO DAILY [facility] Last Admin: 01/24/24 08:42 Dose: 400 mg Documented By: ANALI Melatonin (Melatonin 3 Mg Tablet) 6 mg PO BEDTIME PRN PRN Reason: Insomnia Metoprolol Succinate (Metoprolol Succinate Er 25 Mg Tab.Er.24h) 25 mg PO DAILY [facility]; Protocol Last Admin: 01/24/24 08:42 Dose: 25 mg Documented By: ANALI Omeprazole (Omeprazole 20 Mg Capsule.Dr) 20 mg PO DAILY@0630 [facility] Last Admin: 01/24/24 06:22 Dose: 20 mg Documented By: FRANCI Ondansetron HCl (Ondansetron Hcl 4 Mg/2 Ml Vial) 4 mg IVPUSH Q8H PRN PRN Reason: Nausea and Vomiting Last Admin: 01/21/24 13:24 Dose: 4 mg Documented By: SARAH Sertraline HCl (Sertraline Hcl 100 Mg Tablet) 100 mg PO DAILY [facility] Last Admin: 01/24/24 08:42 Dose: 100 mg Documented By: ANALI Sodium Chloride (0.9 % Sodium Chloride Flush 3 Ml Syringe) 3 ml IVFLUSH QSHIFT [facility] Last Admin: 01/24/24 09:02 Dose: 3 ml Documented By: ANALI Valsartan (Valsartan 40 Mg Tablet) 40 mg PO BID [facility]; Protocol Last Admin: 01/24/24 08:42 Dose: 40 mg Documented By: ANALI Labs 01/22/24 06:11 01/24/24 06:28 Labs: Laboratory Results - last 24 hr 01/22/24 01/24/24 14:32 06:28 Hold Purple Top SEE NOTE Anion Gap 14 Estim Creat Clear Calc 59.3 Estimated GFR > 60 Random Glucose 108 Calcium 8.3 L Magnesium 1.9 CA 19-9 Antigen 22 Microbiology Microbiology Results: Microbiology 01/22/24 10:10 Gram Stain - Final Thoracentesis Fluid Anaerobic Culture - Preliminary Culture in progress. Body Fluid Culture - Final No growth after 2 days Assessment and Plan (1) FTT (failure to thrive) in adult: Status: Acute (2) Swallowing problem: Status: Acute (3) Aspiration pneumonia of both lower lobes: Status: Acute Plan 83M PMH remote history of etoh dependence, hfref, mild cognitive impairment, mood disorder, bph, gout, recent pericardial effusion with tamponade 12/2023 complicated by pafib presented with weakness sepsis due to aspiration pneumonia with right sided effusion Sepsis resolved continue iv zosyn negative cultures Had right thoracentesis 01/21; 700 cc removed Recent Pathology report from cardiac tamponade: 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 discussed with cardiology who doesnt think treatment is needed for pericarditis unless patient reports pain Cardiology input appreciated wean O2 down as tolerated severe acute hypokalemia replace and monitor Swallowing problem crystal mounter eval, thickended liquids were not tolerated by the patient, now on thin liquids continue to follow FTT in elderly Start Megace , eating 50-75% of meals Cancer screening negative CEA, LDH, mildly elevated PSA CT Abd, Ct chest negative for any masses needs PT pafib with symptomatic Bradycardia Decrease toprol XL to 25 mg daily Continue digoxin restarted Elquis chronic systolic chf with recent tamponade valsartan, lasix, Toprol Cardiology following Started Amlodipine 5 mg for BP control mild cognitive impairment at baseline mood disorder zoloft gout allopurinol dvt prophylaxis - eliquis DNR/DNI reason for continued hospitalization:hypokalemia Quality Stroke Does the patient have a stroke diagnosis?: No VTE Prior VTE?: No VTE Risk Level:: Medical - moderate - high VTE Device Contraindication: Treatment Not Indicated VTE Drug Contraindication: N/A - Med Ordered
--- NOTE | 2024-01-24 10:14 | ECG_ITS ---
Test Reason : reeval, ? error on previous ekg Blood Pressure : / mmHG Vent. Rate : 068 BPM Atrial Rate : 000 BPM P-R Int : 000 ms QRS Dur : 090 ms QT Int : 404 ms P-R-T Axes : 000 -16 207 degrees QTc Int : 429 ms Poor data quality, interpretation may be adversely affected Atrial fibrillation Minimal voltage criteria for LVH, may be normal variant ( Sokolow-Herrera ) ST & T wave abnormality, consider lateral ischemia Abnormal ECG When compared with ECG of 23-JAN-2024 10:14, Minimal criteria for Septal infarct are no longer Present Borderline criteria for Lateral infarct are no longer Present ST no longer elevated in Anterior leads T wave inversion less evident in Lateral leads Referred By: Yash Cardoso Electronically Signed By:
[2024-01-24] MEDS: Furosemide 20 MG TABLET PO ×2 (11:06→16:34)
[2024-01-24 11:54] VITALS: BP 174/81; PULSE 64; RESP 18; TEMP 36.7; O2SAT 95
[2024-01-24 13:56] LABS: Anion Gap 14 (12-20); Blood Urea Nitrogen 14 mg/dL (9-16); Calcium 8.5 mg/dL (8.4-10.2); Carbon Dioxide 26 mmol/L (22-29); Chloride 105 mmol/L (96-108); Creatinine Clr Calc Pharmacy 49.5; Estimated Glomerular Filt Rate > 60; Glucose Random 141 mg/dL (60-115); Potassium 3.2 mmol/L (3.3-5.1); Sodium 142 mmol/L (135-145)
--- NOTE | 2024-01-24 14:09 | PM.DS ---
DS: Providers Provider Date of Service: 01/24/24 Date of admission: 01/20/24 01:05 Primary care physician: Rolo Eric DO Consults: 01/22/24 12:14 Consult to Cardiology Routine Consulting Provider: [facility] Reason for consultation: Hx Pericarditis per Pathology report, needs treatment ? fluid overload. DS: Diagnosis Discharge Diagnosis (1) FTT (failure to thrive) in adult: Status: Acute (2) Swallowing problem: Status: Acute (3) Aspiration pneumonia of both lower lobes: Status: Acute DS: Summary Hospital Course Hospital Course: from initial hpi: 83M PMH remote history of etoh dependence, hfref, mild cognitive impairment, mood disorder, bph, gout, recent pericardial effusion with tamponade 12/2023 complicated by pafib, underwent window was discharged to SNF for rehab 1 day prior to presentation and brought back to ED for severe weakness, decreased appetite, difficulty ambulating. patient has lost about 6kg since admission 3 weeks ago. family also noted increased cough with phlegm and dyspnea (patient denies), no fever, chills, chest pain. in ED CT chest showed bibasilar consolidation with air bronchograms, trace pericardial effusion, right sided effusion. hospital course: Patient was admitted for sepsis due to aspiration pneumonia and right-sided pleural effusion. Was treated with IV Zosyn. Had thoracentesis on 01/22/24, 700 cc removed, culture negative, for fluid analysis still pending. Left-sided effusion less significant, therefore, was not drained. Was seen by speech who recommended continue regular solids with thin liquids, will continue 5 more days of Augmentin on discharge and should have repeat chest imaging in 4 weeks to confirm resolution. Course complicated by severe acute hypokalemia which was replaced and is 3.2 at discharge, should continue potassium supplement as outpatient. For failure to thrive was started on Megace and is eating 50-75% of meals. Screening for malignancy with CT abdomen and chest as well as CEA, LDH, PSA did not reveal any suspicion for malignancy. Was seen by physical therapy recommended short-term rehab. For paroxysmal atrial fibrillation with symptomatic bradycardia his metoprolol was decreased to 25 mg daily and was continued on digoxin. He was also continued on Eliquis. Rate is better controlled in the 60s. For chronic systolic CHF with recent tamponade he was continued on valsartan, Lasix, metoprolol he was seen by Cardiology and had no evidence of heart failure tamponade initially started on amlodipine 5 mg for better blood pressure control though has had significant leg swelling from this medication in the past was discontinued. For mild cognitive impairment patient remained at baseline. For mood disorder was continued on Zoloft. For gout was continued on allopurinol. Patient is medically stable to be discharged to correction facility. Time Attestation Discharge Coordination Time (in mins): 35 Quality: Safe Use of Opioids Does Pt have an Active Cancer Diagnosis on the Problem List?: No Quality: Stroke Does the patient have a stroke diagnosis?: No Physical Exam Vital Signs: Vital Signs: Last Vital Signs Temp 98.0 F 01/24/24 11:54 Pulse 64 01/24/24 11:54 Resp 18 01/24/24 11:54 BP 174/81 H 01/24/24 11:54 Pulse Ox 95 01/24/24 11:54 O2 Del Method Room Air 01/24/24 11:54 O2 Flow Rate 2 01/23/24 11:24 Oxygen Flow Rate 2 01/21/24 17:39 BMI result Body Mass Index 28.9 General: AO X 3, no acute distress, frail appearing Resp: CTA bilateral, no accessory muscles used CVS: S1,S2,RRR GI: soft, non tender, non distended Neuro: motor grossly intact, alert Psych: appropriate affect, appropriate insight DS: Data Data Completed and Pending Completed studies during hospitalization [Text1]: Procedures Assistance with Respiratory Ventilation, Less than 24 Consecutive Hours, Continuous Positive Airway Pressure (03/01/23) Drainage of Pericardial Cavity with Drainage Device, Open Approach (12/22/23) Excision of Pericardium, Open Approach, Diagnostic (12/22/23) Labs on day of discharge: Laboratory Results - last 24 hr 01/24/24 01/24/24 06:28 12:46 Hold Purple Top SEE NOTE Sodium 142 142 Potassium 2.6 L* D 3.2 L D Chloride 104 105 Carbon Dioxide 27 26 Anion Gap 14 14 BUN 15 14 Creatinine 0.91 1.09 Estim Creat Clear Calc 59.3 49.5 Estimated GFR > 60 > 60 Random Glucose 108 141 H Calcium 8.3 L 8.5 Magnesium 1.9 Preliminary micro results at discharge 01/22/24 10:10 Anaerobic Culture - Preliminary Thoracentesis Fluid Culture in progress. 01/19/24 21:36 Blood Culture - Preliminary Blood - Venous No growth after 48 hours. 01/19/24 21:27 Blood Culture - Preliminary Blood - Venous No growth after 48 hours. Discharge Plan Discharge Anticipated Discharge Date/Time: 01/24/24 14:01 Patient Disposition: Xfer SNF Discharge Diagnosis: pneumonia Referrals: [facility] [Outside] - 1 Week Rolo Eric DO [Primary Care Provider] - 1 Week Discharge Medications: New metoprolol succinate 25 mg Tablet Extended Release 24 Hr 25 mg PO DAILY Qty: 0 0RF Protocol: Hold for SBP/HR < HOLD for SBP < : 90 HOLD for HR < : 60 megestrol 400 mg/10 mL (10 mL) Suspension 400 mg PO DAILY Qty: 0 0RF potassium chloride 20 mEq tablet extended release 20 meq PO DAILY Qty: 90 0RF amoxicillin-pot clavulanate 875-125 mg tablet 1 tab PO Q12H Qty: 10 0RF Continued sertraline 100 mg tablet 150 mg PO DAILY Eliquis 5 mg Tablet 5 mg PO BID Qty: 60 0RF digoxin 125 mcg (0.125 mg) Tablet 0.125 mg PO DAILY Qty: 30 0RF valsartan 40 mg Tablet 40 mg PO BID Qty: 60 0RF Protocol: Hold for SBP< HOLD for SBP < : 90 furosemide [Lasix] 20 mg tablet 20 mg PO BID Qty: 60 0RF acetaminophen 325 mg Tablet 650 mg PO Q4H PRN (Reason: Pain (Scale Score 1-3)) omeprazole 20 mg capsule,delayed release(DR/EC) 20 mg PO DAILY@0630 allopurinol 300 mg tablet 300 mg PO DAILY Discontinued metoprolol succinate 50 mg Tablet Extended Release 24 Hr 50 mg PO DAILY Qty: 30 0RF Protocol: Hold for SBP/HR < HOLD for SBP < : 90 HOLD for HR < : 60 Discharge Orders: Discharge Order (Routine); Ordered 01/24/24 Ordered By: Yash Cardoso Diet: Advance to usual diet Activity on Discharge: As tolerated Stand Alone Forms: Patient Portal Discharge page Print Language: Czech Care Plan Goals: recovery Health Concerns: pneumonia, FTT Plan of Treatment: 5 more days augmentin, repeat chest imaging in about 4 weeks, potassium supplement, flutter valve as needed, rehab, toprol decreased to 25mg daily for slow ventricular rate Assessment: see above
--- NOTE | 2024-01-24 14:12 | MHC.CM.PN ---
Per MD, Patient is medically cleared for dc to SNF/STR today.[facility], via [facility]. has spoken with/informed Daughter/HCP/Dilcia and CM met with Patient at bedside and addressed IMM with him (original was given to Patient and a copy has been placed on the chart).
[2024-01-24 16:00] VITALS: BP 176/81; PULSE 71; RESP 19; TEMP 36.7; O2SAT 97
[2024-01-25 07:24] LABS: Total Protein Pleural Fluid 2.4
[2024-01-25 07:25] LABS: Glucose Pleural Fluid 124; LDH Pleural Fluid 102
--- NOTE | 2024-01-25 14:29 | MHC.CM.PN ---
CM received a call from Daughter/HCP/Dilcia @[phone]. Per Dilcia, it was recommended that Patient have a lung flute and the SNF does not have them; Dilcia is asking [facility] to supply one(MADHURI has a tiger text out to MD, RT, and Nursing). Also, Dilcia states that Patient's medical grade, expensive compression stocking were lost in the ED and she is asking if they can be replaced.MADHURI will follow once response is received.
== END 2024-01-24 17:38 | disposition skilled nursing facility (03) | DRG 871 ==
LOC: HO.ED 01-20 00:43 → HO.EDOVER 01-20 01:12 → HO.IMC 01-20 12:30
PROVIDERS: Physician Assistant Medical; Radiology Vascular & Interventional Radiology; Student in an Organized Health Care Education/Training Program; Admitting Provider Internal Medicine; Emergency Provider Internal Medicine; PCP Family Medicine; Visit Provider Internal Medicine
PROC: 0W993ZZ Drainage of Right Pleural Cavity, Percutaneous Approach (ICD-10-PCS; principal; 2024-01-22 09:30)
DX: A41.9 Sepsis, unspecified organism (principal); J69.0 Pneumonitis due to inhalation of food and vomit; J91.8 Pleural effusion in other conditions classified elsewhere; I42.9 Cardiomyopathy, unspecified; I50.22 Chronic systolic (congestive) heart failure; R13.10 Dysphagia, unspecified; Z66 Do not resuscitate; E87.6 Hypokalemia; R00.1 Bradycardia, unspecified; R62.7 Adult failure to thrive; Z68.28 Body mass index [BMI] 28.0-28.9, adult; F39 Unspecified mood [affective] disorder; M10.9 Gout, unspecified; G31.84 Mild cognitive impairment of uncertain or unknown etiology; I48.0 Paroxysmal atrial fibrillation; Z20.822 Contact with and (suspected) exposure to COVID-19; Z87.891 Personal history of nicotine dependence; Z79.01 Long term (current) use of anticoagulants; Z79.899 Other long term (current) drug therapy
CPT/HCPCS: 0241U; 32555; 36415; 71045; 71250; 74176; 80048; 80053; 80162; 81001; 81003; 82140; 82378; 82803; 82945; 82947; 83605; 83615; 83735; 83880; 84145; 84153; 84157; 84443; 84484; 85025; 85027; 85610; 85730; 86301; 87040; 87070; 87073; 87086; 87205; 89051; 92526; 92610; 93005; 93308; 97116; 97162; 99285; J0696; J1650; J2405; J2543; J3480

== ENCOUNTER 2024-01-20 01:05 | Outpatient (BNV) | payer OTHER, MEDICARE, SELFPAY | END 2024-01-22 10:00 | PROVIDERS: Admitting Provider Internal Medicine; Emergency Provider Internal Medicine; PCP Family Medicine; Visit Provider Radiology Vascular & Interventional Radiology | DX: J90 Pleural effusion, not elsewhere classified (principal) | CPT/HCPCS: 32555 ==

== ENCOUNTER 2024-01-20 01:05 | Outpatient (BNV) | payer MEDICARE, SELFPAY | END 2024-01-24 07:00 | PROVIDERS: Admitting Provider Internal Medicine; Emergency Provider Internal Medicine; PCP Family Medicine; Visit Provider Internal Medicine Cardiovascular Disease | DX: I31.39 Other pericardial effusion (noninflammatory) (principal) | CPT/HCPCS: 93308 ==

== ENCOUNTER → 2024-01-20 01:05 | Outpatient (BNV) | payer MEDICARE, SELFPAY | PROVIDERS: Admitting Provider Internal Medicine; Emergency Provider Internal Medicine; PCP Family Medicine; Visit Provider Internal Medicine | DX: J69.0 Pneumonitis due to inhalation of food and vomit (principal); R62.7 Adult failure to thrive; R13.10 Dysphagia, unspecified | CPT/HCPCS: 99223; 99232; 99239; 99499 ==

== ENCOUNTER → 2024-01-20 01:05 | Outpatient (BNV) | payer MEDICARE, SELFPAY | PROVIDERS: Admitting Provider Internal Medicine; Emergency Provider Internal Medicine; PCP Family Medicine; Visit Provider Internal Medicine Cardiovascular Disease | DX: R62.7 Adult failure to thrive (principal); J69.0 Pneumonitis due to inhalation of food and vomit; I48.91 Unspecified atrial fibrillation | CPT/HCPCS: 99222 ==

== ENCOUNTER 2024-09-29 18:40 | Inpatient (IN) | payer OTHER, MEDICARE, SELFPAY ==
--- NOTE | ~2024-09-29 | CT_ITS ---
CLINICAL HISTORY: trauma CT head without contrast Comparison: CT/SR - CT HEAD/BRAIN WO IV CON - 12/27/23 13:[address]/SR - CT HEAD/BRAIN WO IV CON - 12/21/23 23:10 EDT Findings: No intra-axial mass, midline shift, hydrocephalus, or acute hemorrhage. Nonspecific white matter hypodensity and mild volume loss. 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 Scattered mucosal thickening within paranasal sinuses. Mastoid air cells are clear. The orbits are unremarkable. There is no acute fracture. IMPRESSION: 1. No acute intracranial findings. This document has been electronically signed by: Dago Pascal MD, PHD on 09/29/2024 23:23:57
--- NOTE | ~2024-09-29 | XR_ITS ---
CLINICAL HISTORY: SOB 1 view chest x-ray Comparison: CR/SR - XR CHEST 1V - 01/24/24 10:15 EDT Findings: No consolidative process. Mildly enlarged heart. Elongation of the aorta. No acute fracture. IMPRESSION: 1. No acute findings. This document has been electronically signed by: Lisset Brower MD on 09/29/2024 19:27:06
--- NOTE | ~2024-09-29 | CT_ITS ---
CLINICAL HISTORY: abdominal pain CT abdomen and pelvis without contrast Comparison: CT/TX/SR - CT ABDOMEN PELVIS WO IV CON - 01/22/24 15:19 EDT Findings: Motion artifact degrades the images and limits interpretation. The lung bases are clear. 3.1 cm right hepatic cyst is present. Gallstones in the gallbladder. Pancreas is atrophic. Spleen and adrenal glands are within normal limits. Kidneys are non hydronephrotic. Atherosclerotic vascular calcifications are present. Infrarenal aorta is slightly ectatic. No bowel obstruction, pneumoperitoneum, or pneumatosis. The appendix is not visualized. Bones are osteopenic. IMPRESSION: Motion limited CT with no acute findings. This document has been electronically signed by: Dago Pascal MD, PHD on 09/30/2024 00:00:35
--- NOTE | ~2024-09-29 | CT_ITS ---
CLINICAL HISTORY: shortnes of breath, hypoxia, previous pericardial CT chest without contrast Comparison: CT/SR - CT CHEST WO IV CON - 01/19/24 21:07 EDT Findings: Respiratory motion artifact degrades the images limiting interpretation. The heart is markedly enlarged. 1.9 by 2.5 cm right thyroid nodule or cyst is present. Dependent changes are present within the lungs bilaterally. No gross consolidation or infiltrate. The upper abdomen is unremarkable. The bones are intact. Atherosclerotic vascular calcifications are present. IMPRESSION: 1. Motion limited chest CT. 2. Marked cardiomegaly. This document has been electronically signed by: Dago Pascal MD, PHD on 09/29/2024 23:58:15
[2024-09-29 18:46] VITALS: BP 142/88; PULSE 66; O2SAT 97
[2024-09-29 18:49] VITALS: BP 188/76; PULSE 64; RESP 18; TEMP 36.7; O2SAT 97; BMI 30.6
--- NOTE | 2024-09-29 18:55 | ECG_ITS ---
Test Reason : SOB Blood Pressure : */* mmHG Vent. Rate : 59 BPM Atrial Rate : 51 BPM P-R Int : * ms QRS Dur : 90 ms QT Int : 460 ms P-R-T Axes : * -16 207 degrees QTcB Int : 455 ms Atrial fibrillation with PVCs Left ventricular hypertrophy with repolarization abnormality ( R in aVL ) Abnormal ECG When compared with ECG of 24-Jan-2024 11:17, No significant changes seen Referred By: Generic ED Physician Electronically Signed By: eJan Holm
[2024-09-29 19:15] LABS: MANUAL DIFF FLAG NO
--- OUTSIDE RECORDS SUMMARY | 2024-09-29 19:17 | XMS_ITS | Encounter Summary ---
Author Organization [facility] Address [address] [place] [address] Care Team Providers Care Torpedo Specialist Name Role Phone Alize Go MD Primary Care Provider + Encounter Details Date Type Department Care Team (Late st Contact Info) Description 05/03/2024 Lab Requisition [facility] - Main Lab [address] [facility] [place] [address] Alize Go MD [address] [phone] Altered mental status, unspecified Social History Tobacco Use Types Packs/Day Years Used Date Smoking Tobacco: Never Assessed Sex and Gender Information Value Date Recorded Sex Assigned at Not on file Legal Sex Male 11:01 AM EST Gender Identity Not on file Sexual Orientation Not on file documented as of this encounter Plan of Treatment Not on file documented as of this encounter Procedures Procedure Name Priority Date/Time Associated Diagnosis Comments URINALYSIS WITH REFLEX MICROSCOPIC Routine 05/03/2024 3:00 AM EST Altered mental status, unspecified URINALYSIS WITH REFLEX MICROSCOPIC Routine 05/03/2024 3:00 AM EST Altered mental status, unspecified CULTURE URINE Routine 05/03/2024 3:00 AM EST Altered mental status, unspecified documented in this encounter Results * (ABNORMAL) Urinalysis with reflex microscopic (05/03/2024 3:00 AM EST) Specific [place] Urine 1.020 1.003 - 1.030 LAB URINALYSIS - AUTOMATED METHOD 05/03/2024 11:33 AM EST [facility] pH, Urine 5.5 5.0 - 8.0 pH LAB URINALYSIS - AUTOMATED METHOD 05/03/2024 11:33 AM [facility] Leukocytes, Urine Trace(A) Negative LAB URINALYSIS - AUTOMATED METHOD 05/03/2024 11:33 AM [facility] Nitrite, Urine Negative Negative LAB URINALYSIS - AUTOMATED METHOD 05/03/2024 11:33 AM [facility] Protein, Urine Negative <=Trace mg/dL LAB URINALYSIS - AUTOMATED METHOD 05/03/2024 11:33 AM [facility] Glucose, Urine Negative Negative mg/dL LAB URINALYSIS - AUTOMATED METHOD 05/03/2024 11:33 AM [facility] Ketones, Urine Negative Negative mg/dL LAB URINALYSIS - AUTOMATED METHOD 05/03/2024 11:33 AM [facility] Urobilinogen, Urine 0.2 0.2 - 1.0 mg/dL LAB URINALYSIS - AUTOMATED METHOD 05/03/2024 11:33 AM [facility] Bilirubin, Urine Negative Negative LAB URINALYSIS - AUTOMATED METHOD 05/03/2024 11:33 AM [facility] Blood, Urine Negative Negative LAB URINALYSIS - AUTOMATED METHOD 05/03/2024 11:33 AM [facility] RBC, Urine 4.4(H) 0 - 4 /HPF LAB URINALYSIS - AUTOMATED METHOD 05/03/2024 11:33 AM [facility] WBC, Urine 2.6 0 - 4 /HPF LAB URINALYSIS - AUTOMATED METHOD 05/03/2024 11:33 AM [facility] Squamous Epithelial, Urine 18 0 - 60 /LPF LAB URINALYSIS - AUTOMATED METHOD 05/03/2024 11:33 AM [facility] Bacteria, Urine Negative Negative /HPF LAB URINALYSIS - AUTOMATED METHOD 05/03/2024 11:33 AM [facility] Hyaline Casts, Urine 0.4 0 - 3 /LPF LAB URINALYSIS - AUTOMATED METHOD 05/03/2024 11:33 AM EST [facility] Urine Urine specimen obtained by clean catch procedure / Unknown 05/03/2024 3:00 AM EST 05/03/2024 10:51 AM EST Alize Go MD LAB URINE ORDERABLES Fin al Result Performing Organization Address [facility] Co de Phone Number [facility] [address] [place] [address], [place] [phone] * Culture urine (05/03/2024 3:00 AM EST) Culture, Urine 10,000-49,000 CFU/mL Mixed bacterial morphotypes present suggestive of possible contamination during collection. Suggest appropriate recollection if clinically indicated. 05/04/2024 10:21 AM EST [facility] Urine Urine specimen obtained by clean catch procedure / Unknown 05/03/2024 3:00 AM EST 05/03/2024 10:51 AM EST Alize Go MD LAB MICROBIOLOGY - GENER AL ORDERABLES Final Result Performing Organization Address [facility] de Phone Number [facility] [address] [place] [address], [place] [phone] documented in this encounter Visit Diagnoses Diagnosis Altered mental status, unspecified documented in this encounter Care Teams Torpedo Specialist Relationship Specialty Start Date End Date Alize Go MD [address] [place] [id number] PCP - General Family Medicine 03/22/24 documented as of this encounter
--- OUTSIDE RECORDS SUMMARY | 2024-09-29 19:17 | XMS_ITS | Encounter Summary ---
Author Organization [employer] Address [address] [place] [address] Care Team Providers Care Human Resources Benefits Assistant Name Role Phone Alize Go MD Primary Care Provider + Encounter Details Date Type Department Care Team (Late st Contact Info) Description 05/03/2024 Lab Requisition [facility] - Main Lab [address] [facility] [place] [address] Alize Go MD [address] [facility] 1 [place], [place] [phone] Altered mental status, unspecified Social History Tobacco [...] Procedure Name Priority Date/Time Associated Diagnosis Comments COMPLETE BLOOD COUNT Routine 05/03/2024 9:01 AM EST Altered mental status, unspecified THYROID STIMULATING HORMONE Routine 05/03/2024 9:01 AM EST Altered mental status, unspecified AMMONIA Routine 05/03/2024 9:01 AM EST Altered mental status, unspecified COMPREHENSIVE METABOLIC PANEL Routine 05/03/2024 9:01 AM EST Altered mental status, unspecified documented in this encounter Results * Ammonia (05/03/2024 9:01 AM EST) Ammonia 14 11 - 35 mcmol/L LAB CHEMISTRY METHOD 05/03/2024 10:20 AM EST [facility] Blood Venous blood specimen / Unknown Venipuncture / Unknown 05/03/2024 9:01 AM EST 05/03/2024 9:57 AM EST Alize Go MD LAB BLOOD ORDERABLES Fin al Result Performing Organization Address [facility]/ZIP Co de Phone Number [facility] [address] [place] [address], [place] [phone] * Thyroid stimulating hormone (05/03/2024 9:01 AM EST) TSH 1.79 0.40 - 4.00 mcIU/mL LAB CHEMISTRY METHOD 05/03/2024 10:57 AM [facility] Blood Venous blood specimen / Unknown Venipuncture / Unknown 05/03/2024 9:01 AM EST 05/03/2024 9:57 AM EST Alize Go MD LAB BLOOD ORDERABLES Fin al Result Performing Organization Address [facility]/ZIP Co de Phone Number [facility] [address] [place] [address], [place] [phone] * (ABNORMAL) Comprehensive metabolic panel (05/03/2024 9:01 AM EST) Sodium 140 133 - 145 mmol/L LAB CHEMISTRY METHOD 05/03/2024 10:53 AM [facility] Potassium 3.9 3.5 - 5.5 mmol/L LAB CHEMISTRY METHOD 05/03/2024 10:53 AM [facility] Chloride 108 96 - 110 mmol/L LAB CHEMISTRY METHOD 05/03/2024 10:53 AM [facility] CO2 26 21 - 32 mmol/L LAB CHEMISTRY METHOD 05/03/2024 10:53 AM [facility] Anion Gap 6 3 - 11 LAB CHEMISTRY METHOD 05/03/2024 10:53 AM [facility] Glucose 127(H) 70 - 100 mg/dL LAB CHEMISTRY METHOD 05/03/2024 10:53 AM [facility] BUN 35(H) 5 - 25 mg/dL LAB CHEMISTRY METHOD 05/03/2024 10:53 AM [facility] Creatinine 1.47(H) 0.70 - 1.30 mg/dL LAB CHEMISTRY METHOD 05/03/2024 10:53 AM [facility] eGFR 46(L) >=60 mL/min/1. 73m2 LAB CHEMISTRY METHOD 05/03/2024 10:53 AM [facility] Comment:Calculation based on the??Chronic Kidney Disease Epidemiology Collaboration (CKD-EPI) equation refit??without adjustment for race. BUN/Creatinine Ratio 23.8 LAB CHEMISTRY METHOD 05/03/2024 10:53 AM [facility] Calcium 8.9 8.5 - 10.5 mg/dL LAB CHEMISTRY METHOD 05/03/2024 10:53 AM [facility] AST (SGOT) 7(L) 10 - 42 unit/L LAB CHEMISTRY METHOD 05/03/2024 10:53 AM [facility] ALT (SGPT) 16 10 - 60 unit/L LAB CHEMISTRY METHOD 05/03/2024 10:53 AM [facility] Alkaline Phosphatase 80 42 - 121 unit/L LAB CHEMISTRY METHOD 05/03/2024 10:53 AM [facility] Total Protein 5.9(L) 6.0 - 8.0 g/dL LAB CHEMISTRY METHOD 05/03/2024 10:53 AM [facility] Albumin 3.7 3.2 - 5.0 g/dL LAB CHEMISTRY METHOD 05/03/2024 10:53 AM [facility] Total Bilirubin 1.0 0.0 - 1.4 mg/dL LAB CHEMISTRY METHOD 05/03/2024 10:53 AM [facility] Blood Venous blood specimen / Unknown Venipuncture / Unknown 05/03/2024 9:01 AM EST 05/03/2024 9:57 AM EST us Alize Go MD LAB BLOOD ORDERABLES Fin al Result [facility] [address] [place] [address], * (ABNORMAL) Complete blood count (05/03/2024 9:01 AM EST) [facility] WBC 5.8 4.8 - 10.8 K/mcL LAB HEMETOLOGY METHOD 05/03/2024 10:24 AM [facility] RBC 4.20(L) 4.50 - 5.50 M/mcL LAB HEMETOLOGY METHOD 05/03/2024 10:24 AM [facility] Hemoglobin 12.6(L) 13.5 - 17.5 g/dL LAB HEMETOLOGY METHOD 05/03/2024 10:24 AM [facility] Hematocrit 39.9(L) 42.0 - 54.0 % LAB HEMETOLOGY METHOD 05/03/2024 10:24 AM [facility] MCV 94.5 79.0 - 98.0 FL LAB HEMETOLOGY METHOD 05/03/2024 10:24 AM [facility] MCH 29.9 27.0 - 32.0 pcg LAB HEMETOLOGY METHOD 05/03/2024 10:24 AM [facility] MCHC 31.6(L) 32.0 - 37.0 g/dL LAB HEMETOLOGY METHOD 05/03/2024 10:24 AM [facility] RDW 18.0(H) 11.0 - 15.0 % LAB HEMETOLOGY METHOD 05/03/2024 10:24 AM [facility] Platelets 120(L) 130 - 400 K/mcL LAB HEMETOLOGY METHOD 05/03/2024 10:24 AM EST [facility] MPV 12.3(H) 7.0 - 11.0 FL LAB HEMETOLOGY METHOD 05/03/2024 10:24 AM EST [facility] NRBC 0.0 <1.0 % LAB HEMETOLOGY METHOD 05/03/2024 10:24 AM EST [facility] NRBC Absolute 0.00 <0.10 K/mcL LAB HEMETOLOGY METHOD 05/03/2024 10:24 AM EST [facility] Blood Venous blood specimen / Unknown Venipuncture / Unknown 05/03/2024 9:01 AM EST 05/03/2024 9:57 AM EST us Alize Go MD LAB BLOOD ORDERABLES Fin al Result Performing Organization Address City/State/[facility] Co de Phone Number [facility] [address] [place] [address], documented in this encounter Visit Diagnoses Diagnosis Altered mental status, unspecified documented in this encounter Care Teams Human Resources Benefits Assistant Relationship Specialty Start Date End Date Alize Go MD [address] [place] [id number] PCP - General Family Medicine 03/22/24 documented as of this encounter
--- OUTSIDE RECORDS SUMMARY | 2024-09-29 19:17 | XMS_ITS | Encounter Summary ---
Author Organization [facility] Address [address] [place] [address] Care Team Providers Care Grain Farmworker Name Role Phone Alize Go MD Primary Care Provider + Encounter Details Date Type Department Care Team (Late st Contact Info) Description 08/08/[address] [facility] - Main Lab [address] [facility] [place] [place] [address] Alize Go MD [address] [phone] Weakness Social History Tobacco Use Types Packs/Day Years [...] Associated Diagnosis Comments COMPLETE BLOOD COUNT Routine 08/09/2024 5:43 AM EDT Weakness BASIC METABOLIC PANEL Routine 08/09/2024 5:43 AM EDT Weakness documented in this encounter Results * (ABNORMAL) Basic metabolic panel (08/09/2024 5:43 AM EDT) Sodium 141 133 - 145 mmol/L LAB CHEMISTRY METHOD 08/09/2024 10:14 AM EDT [facility] Potassium 4.2 3.5 - 5.5 mmol/L LAB CHEMISTRY METHOD 08/09/2024 10:14 AM EDT [facility] Chloride 108 96 - 110 mmol/L LAB CHEMISTRY METHOD 08/09/2024 10:14 AM EDT [facility] CO2 26 21 - 32 mmol/L LAB CHEMISTRY METHOD 08/09/2024 10:14 AM [facility] Anion Gap 7 3 - 11 LAB CHEMISTRY METHOD 08/09/2024 10:14 AM [facility] Glucose 81 70 - 100 mg/dL LAB CHEMISTRY METHOD 08/09/2024 10:14 AM [facility] BUN 28(H) 5 - 25 mg/dL LAB CHEMISTRY METHOD 08/09/2024 10:14 AM [facility] Creatinine 1.34(H) 0.70 - 1.30 mg/dL LAB CHEMISTRY METHOD 08/09/2024 10:14 AM [facility] eGFR 52(L) >=60 mL/min/1. 73m2 LAB CHEMISTRY METHOD 08/09/2024 10:14 AM [facility] Comment:Calculation based on the??Chronic Kidney Disease Epidemiology Collaboration (CKD-EPI) equation refit??without adjustment for race. BUN/Creatinine Ratio 20.9 LAB CHEMISTRY METHOD 08/09/2024 10:14 AM [facility] Calcium 8.2(L) 8.5 - 10.5 mg/dL LAB CHEMISTRY METHOD 08/09/2024 10:14 AM [facility] Blood Venous blood specimen / Unknown Venipuncture / Unknown 08/09/2024 5:43 AM EDT 08/09/2024 9:21 AM EDT us Alize Go MD LAB BLOOD ORDERABLES Fin al Result [facility] [address] [place] [address], * (ABNORMAL) Complete blood count (08/09/2024 5:43 AM EDT) WBC 6.5 4.8 - 10.8 K/mcL LAB HEMETOLOGY METHOD 08/09/2024 9:46 AM [facility] RBC 3.60(L) 4.50 - 5.50 M/mcL LAB HEMETOLOGY METHOD 08/09/2024 9:46 AM [facility] Hemoglobin 11.5(L) 13.5 - 17.5 g/dL LAB HEMETOLOGY METHOD 08/09/2024 9:46 AM [facility] Hematocrit 35.4(L) 42.0 - 54.0 % LAB HEMETOLOGY METHOD 08/09/2024 9:46 AM [facility] MCV 98.1(H) 79.0 - 98.0 FL LAB HEMETOLOGY METHOD 08/09/2024 9:46 AM [facility] MCH 31.9 27.0 - 32.0 pcg LAB HEMETOLOGY METHOD 08/09/2024 9:46 AM [facility] MCHC 32.5 32.0 - 37.0 g/dL LAB HEMETOLOGY METHOD 08/09/2024 9:46 AM [facility] RDW 16.6(H) 11.0 - 15.0 % LAB HEMETOLOGY METHOD 08/09/2024 9:46 AM [facility] Platelets 124(L) 130 - 400 K/mcL LAB HEMETOLOGY METHOD 08/09/2024 9:46 AM [facility] MPV 11.7(H) 7.0 - 11.0 FL LAB HEMETOLOGY METHOD 08/09/2024 9:46 AM [facility] NRBC 0.0 <1.0 % LAB HEMETOLOGY METHOD 08/09/2024 9:46 AM [facility] NRBC Absolute 0.00 <0.10 K/mcL LAB HEMETOLOGY METHOD 08/09/2024 9:46 AM [facility] Blood Venous blood specimen / Unknown Venipuncture / Unknown 08/09/2024 5:43 AM EDT 08/09/2024 9:22 AM EDT Alize Go MD LAB BLOOD ORDERABLES Fin al Result [facility] [address] [place] [address], documented in this encounter Visit Diagnoses Diagnosis Weakness Other malaise and fatigue documented in this encounter Care Teams Grain Farmworker Relationship Specialty Start Date End Date Alize Go MD [address] [place] [id number] PCP - General Family Medicine 03/22/24 documented as of this encounter
--- OUTSIDE RECORDS SUMMARY | 2024-09-29 19:17 | XMS_ITS | Encounter Summary ---
Author Organization [employer] Address [address] [place] [address] Care Team Providers Care Color Buffer Name Role Phone Alize Go MD Primary Care Provider + Encounter Details Date Type Department Care Team (Late st Contact Info) Description 03/24/2024 Lab Requisition [facility] - Main Lab [address] [facility] [place] [address] Alize Go MD [address] [facility] 1 [place], [place] [phone] Altered mental status, unspecified Social History Tobacco [...] Procedure Name Priority Date/Time Associated Diagnosis Comments THYROID STIMULATING HORMONE WITH REFLEX TO FREE T4 AND FREE T3 Routine 03/24/2024 6:57 AM EST Altered mental status, unspecified COMPLETE BLOOD COUNT Routine 03/24/2024 6:57 AM EST Altered mental status, unspecified FOLATE Routine 03/24/2024 6:57 AM EST Altered mental status, unspecified VITAMIN B12 Routine 03/24/2024 6:57 AM EST Altered mental status, unspecified COMPREHENSIVE METABOLIC PANEL Routine 03/24/2024 6:57 AM EST Altered mental status, unspecified documented in this encounter Results * Folate (03/24/2024 6:57 AM EST) [facility] Folate 8.3 2.8 - 17.0 ng/ml LAB CHEMISTRY METHOD 03/24/2024 9:27 AM EST [facility] Blood Venous blood specimen / Unknown Venipuncture / Unknown 03/24/2024 6:57 AM EST 03/24/2024 8:33 AM EST Alize Go MD LAB BLOOD ORDERABLES Fin al Result Performing Organization Address [facility] Co de Phone Number [facility] [address] [place] [address], [place] [phone] * Vitamin B12 (03/24/2024 6:57 AM EST) [facility] Vitamin B-12 381 250 - 900 pcg/mL LAB CHEMISTRY METHOD 03/24/2024 9:27 AM EST [facility] Blood Venous blood specimen / Unknown Venipuncture / Unknown 03/24/2024 6:57 AM EST 03/24/2024 8:33 AM EST Alize Go MD LAB BLOOD ORDERABLES Fin al Result Performing Organization Address [facility] de Phone Number [facility] [address] [place] [address], [place] [phone] * Thyroid stimulating hormone with reflex to free t4 and free t3 (03/24/2024 6:57 AM EST) [facility] TSH 2.24 0.40 - 4.00 mcIU/mL LAB CHEMISTRY METHOD 03/24/2024 9:13 AM EST [facility] Blood Venous blood specimen / Unknown Venipuncture / Unknown 03/24/2024 6:57 AM EST 03/24/2024 8:33 AM EST Alize Go MD LAB BLOOD ORDERABLES Fin al Result Performing Organization Address City/[facility]/ZIP Co de Phone Number [facility] [address] [place] [address], * (ABNORMAL) Comprehensive metabolic panel (03/24/2024 6:57 AM EST) Sodium 141 133 - 145 mmol/L LAB CHEMISTRY METHOD 03/24/2024 9:04 AM [facility] Potassium 4.1 3.5 - 5.5 mmol/L LAB CHEMISTRY METHOD 03/24/2024 9:04 AM [facility] Chloride 107 96 - 110 mmol/L LAB CHEMISTRY METHOD 03/24/2024 9:04 AM [facility] CO2 29 21 - 32 mmol/L LAB CHEMISTRY METHOD 03/24/2024 9:04 AM [facility] Anion Gap 5 3 - 11 LAB CHEMISTRY METHOD 03/24/2024 9:04 AM [facility] Glucose 95 70 - 100 mg/dL LAB CHEMISTRY METHOD 03/24/2024 9:04 AM [facility] BUN 28(H) 5 - 25 mg/dL LAB CHEMISTRY METHOD 03/24/2024 9:04 AM [facility] Creatinine 1.14 0.70 - 1.30 mg/dL LAB CHEMISTRY METHOD 03/24/2024 9:04 AM [facility] eGFR 63 >=60 mL/min/1. 73m2 LAB CHEMISTRY METHOD 03/24/2024 9:04 AM [facility] Comment:Calculation based on the??Chronic Kidney Disease Epidemiology Collaboration (CKD-EPI) equation refit??without adjustment for race. BUN/Creatinine Ratio 24.6 LAB CHEMISTRY METHOD 03/24/2024 9:04 AM [facility] Calcium 8.7 8.5 - 10.5 mg/dL LAB CHEMISTRY METHOD 03/24/2024 9:04 AM [facility] AST (SGOT) 14 10 - 42 unit/L LAB CHEMISTRY METHOD 03/24/2024 9:04 AM [facility] ALT (SGPT) 21 10 - 60 unit/L LAB CHEMISTRY METHOD 03/24/2024 9:04 AM [facility] Alkaline Phosphatase 86 42 - 121 unit/L LAB CHEMISTRY METHOD 03/24/2024 9:04 AM [facility] Total Protein 5.2(L) 6.0 - 8.0 g/dL LAB CHEMISTRY METHOD 03/24/2024 9:04 AM [facility] Albumin 3.0(L) 3.2 - 5.0 g/dL LAB CHEMISTRY METHOD 03/24/2024 9:04 AM [facility] Total Bilirubin 0.5 0.0 - 1.4 mg/dL LAB CHEMISTRY METHOD 03/24/2024 9:04 AM [facility] Blood Venous blood specimen / Unknown Venipuncture / Unknown 03/24/2024 6:57 AM EST 03/24/2024 8:33 AM EST us Alize Go MD LAB BLOOD ORDERABLES Fin al Result [facility] [address] [place] [address], * (ABNORMAL) Complete blood count (03/24/2024 6:57 AM EST) WBC 7.4 4.8 - 10.8 K/mcL LAB HEMETOLOGY METHOD 03/24/2024 8:56 AM [facility] RBC 3.80(L) 4.50 - 5.50 M/[facility] LAB HEMETOLOGY METHOD 03/24/2024 8:56 AM [facility] Hemoglobin 11.1(L) 13.5 - 17.5 g/dL LAB HEMETOLOGY METHOD 03/24/2024 8:56 AM [facility] Hematocrit 35.7(L) 42.0 - 54.0 % LAB HEMETOLOGY METHOD 03/24/2024 8:56 AM EST [facility] MCV 93.2 79.0 - 98.0 FL LAB HEMETOLOGY METHOD 03/24/2024 8:56 AM [facility] MCH 29.0 27.0 - 32.0 pcg LAB HEMETOLOGY METHOD 03/24/2024 8:56 AM EST [facility] MCHC 31.1(L) 32.0 - 37.0 g/dL LAB HEMETOLOGY METHOD 03/24/2024 8:56 AM [facility] RDW 16.9(H) 11.0 - 15.0 % LAB HEMETOLOGY METHOD 03/24/2024 8:56 AM [facility] Platelets 197 130 - 400 K/mcL LAB HEMETOLOGY METHOD 03/24/2024 8:56 AM EST [facility] MPV 11.6(H) 7.0 - 11.0 FL LAB HEMETOLOGY METHOD 03/24/2024 8:56 AM EST [facility] NRBC 0.0 <1.0 % LAB HEMETOLOGY METHOD 03/24/2024 8:56 AM [facility] NRBC Absolute 0.00 <0.10 K/mcL LAB HEMETOLOGY METHOD 03/24/2024 8:56 AM [facility] Blood Venous blood specimen / Unknown Venipuncture / Unknown 03/24/2024 6:57 AM EST 03/24/2024 8:32 AM EST us Alize Go MD LAB BLOOD ORDERABLES Fin al Result [facility] [address] [place] [address], documented in this encounter Visit Diagnoses Diagnosis Altered mental status, unspecified documented in this encounter Care Teams Color Buffer Relationship Specialty Start Date End Date Alize Go MD [address] [place] [address] PCP - General Family Medicine 03/22/24 documented as of this encounter
--- OUTSIDE RECORDS SUMMARY | 2024-09-29 19:17 | XMS_ITS | Clinical Summary ---
Author Organization [address] [facility] Address [address] [place] [address] Phone Care Team Providers Care Produce Buyer Name Role Phone Alize Go MD Primary Care Provider + Encounters Date Type Department Care Team Description 09/09/[address] [facility] - Main Lab [address] [place] [address] Alize Go MD Weakness 08/31/[address] [facility] Lab [address] [place] [address] Alize Go MD Dysuria 08/08/[address] [facility] Main Lab [address] [place] [address] Alize Go MD Weakness 07/11/[address] [facility] - Main Lab [address] [place] [address] Alize Go MD Weakness 07/10/[address] [facility] Main Lab [address] [place] [address] Alize Go MD Acute cough 07/04/[address] [facility] Main Lab [address] [place] [address] Alize Go MD Urinary tract infection, site not specified from Last 3 Months Social History Tobacco Use Types Packs/Day Years Used Date Smoking Tobacco: Never Assessed Sex and Gender Information Value Date Recorded Sex Assigned at Not on file Legal Sex Male 11:01 AM EST Gender Identity Not on file Sexual Orientation Not on file Plan of Treatment Health Maintenance Due Date Last Done Comments DTaP,Tdap,and Td Vaccines (1 - Tdap) 1959 Pneumococcal Vaccine: 50+ Ye ars (1 of 1 - PCV) 1988 Zoster Vaccines (1 of 2) 1988 RSV Immunization Adult Patie nts (1 - 1-dose 75+ series) 2013 COVID-19 Vaccine ( - 2023-2 5 season) 2024 Cholesterol Screening (Lipid Panel) 03/21/2024 Depression Screening 03/21/2024 Falls Risk Assessment 03/21/2024 Medicare Annual Wellness Visit 03/21/2024 Social Influencers of Health Screening 03/21/2024 Influenza Vaccine (Season Ended) 2025 HIB Vaccines Aged Out No longer eligi ble based on patient's age to complete this topic HPV Vaccines Aged Out No longer eligi ble based on patient's age to complete this topic Hepatitis A Vaccines Aged Out No long er eligible based on patient's age to complete this topic Hepatitis B Vaccines Aged Out No long er eligible based on patient's age to complete this topic IPV Vaccines Aged Out No longer eligi ble based on patient's age to complete this topic MMR Vaccines Aged Out No longer eligi ble based on patient's age to complete this topic Meningococcal ACWY Vaccine Aged Out N o longer eligible based on patient's age to complete this topic Meningococcal B Vaccine Aged Out No l onger eligible based on patient's age to complete this topic RSV Immunization Patients Un larisa 20 months Aged Out No longer eligible b ased on patient's age to complete this topic Varicella Vaccines Aged Out No longer eligible based on patient's age to complete this topic Procedures Procedure Name Priority Date/Time Associated Diagnosis Comments BASIC METABOLIC PANEL Routine 09/10/2024 6:26 AM EDT Weakness COMPLETE BLOOD COUNT Routine 09/10/2024 6:26 AM EDT Weakness URINALYSIS WITH REFLEX MICROSCOPIC AND CULTURE Routine 08/30/2024 12:30 PM EDT Dysuria FREIRE URINE CULTURE TUBE Routine 08/30/2024 12:30 PM EDT Dysuria URINALYSIS WITH REFLEX MICROSCOPIC AND CULTURE Routine 08/30/2024 12:30 PM EDT Dysuria CULTURE URINE Routine 08/30/2024 12:30 PM EDT Dysuria BASIC METABOLIC PANEL Routine 08/09/2024 5:43 AM EDT Weakness COMPLETE BLOOD COUNT Routine 08/09/2024 5:43 AM EDT Weakness BASIC METABOLIC PANEL Routine 07/12/2024 6:14 AM EST Weakness COMPLETE BLOOD COUNT Routine 07/12/2024 6:14 AM EST Weakness CBC WITH AUTO DIFFERENTIAL Routine 07/10/2024 6:12 AM EST Acute cough URIC ACID Routine 07/10/2024 6:12 AM EST Acute cough BASIC METABOLIC PANEL Routine 07/10/2024 6:12 AM EST Acute cough CBC AND DIFFERENTIAL Routine 07/10/2024 6:12 AM EST Acute cough URINALYSIS WITH REFLEX MICROSCOPIC AND CULTURE Routine 07/04/2024 7:00 AM EST Urinary tract infection, site not specified FREIRE URINE CULTURE TUBE Routine 07/04/2024 7:00 AM EST Urinary tract infection, site not specified URINALYSIS WITH REFLEX MICROSCOPIC AND CULTURE Routine 07/04/2024 7:00 AM EST Urinary tract infection, site not specified CULTURE URINE Routine 07/04/2024 7:00 AM EST Urinary tract infection, site not specified from Last 3 Months Results * (ABNORMAL) Complete blood count (09/10/2024 6:26 AM EDT) Only the most recent of3 resultswithin the time period is included. WBC 8.4 4.8 - 10.8 K/[facility] 09/10/[facility] 10:[address] [facility] RBC 4.00(L) 4.50 - 5.50 M/mcL LAB HEMETOLOGY METHOD 09/10/2024 10:[address] [facility] Hemoglobin 12.7(L) 13.5 - 17.5 g/dL LAB HEMETOLOGY METHOD 09/10/2024 10:[address] [facility] Hematocrit 38.8(L) 42.0 - 54.0 % LAB HEMETOLOGY METHOD 09/10/2024 10:[address] [facility] MCV 96.8 79.0 - 98.0 FL LAB HEMETOLOGY METHOD 09/10/2024 10:[address] [facility] MCH 31.7 27.0 - 32.0 pcg LAB HEMETOLOGY METHOD 09/10/2024 10:[address] [facility] MCHC 32.7 32.0 - 37.0 g/dL LAB HEMETOLOGY METHOD 09/10/2024 10:[address] [facility] RDW 14.6 11.0 - 15.0 % LAB HEMETOLOGY METHOD 09/10/2024 10:[address] [facility] Platelets 154 130 - 400 K/mcL LAB HEMETOLOGY METHOD 09/10/2024 10:[address] [facility] MPV 11.5(H) 7.0 - 11.0 FL LAB HEMETOLOGY METHOD 09/10/2024 10:[address] [facility] NRBC 0.0 <1.0 % LAB HEMETOLOGY METHOD 09/10/2024 10:[address] [facility] NRBC Absolute 0.00 <0.10 K/mcL LAB HEMETOLOGY METHOD 09/10/2024 10:[address] [facility] Blood Venous blood specimen / Unknown Venipuncture / Unknown 09/10/2024 6:26 AM EDT 09/10/2024 9:57 AM EDT us Alize Go MD LAB BLOOD ORDERABLES Fin al Result [facility] [address] [place] [address], * (ABNORMAL) Basic metabolic panel (09/10/2024 6:26 AM EDT) Only the most recent of4 resultswithin the time period is included. Sodium 139 133 - 145 mmol/L LAB CHEMISTRY METHOD 09/10/2024 10:[address] [facility] Potassium 4.2 3.5 - 5.5 mmol/L LAB CHEMISTRY METHOD 09/10/2024 10:[address] [facility] Chloride 109 96 - 110 mmol/L LAB CHEMISTRY METHOD 09/10/2024 10:[address] [facility] CO2 24 21 - 32 mmol/L LAB CHEMISTRY METHOD 09/10/2024 10:[address] [facility] Anion Gap 6 3 - 11 LAB CHEMISTRY METHOD 09/10/2024 10:[address] [facility] Glucose 87 70 - 100 mg/dL LAB CHEMISTRY METHOD 09/10/2024 10:[address] [facility] BUN 29(H) 5 - 25 mg/dL LAB CHEMISTRY METHOD 09/10/2024 10:[address] [facility] Creatinine 1.30 0.70 - 1.30 mg/dL LAB CHEMISTRY METHOD 09/10/2024 10:[address] [facility] eGFR 54(L) >=60 mL/min/1. 73m2 LAB CHEMISTRY METHOD 09/10/2024 10:[address] [facility] Comment:Calculation based on the??Chronic Kidney Disease Epidemiology Collaboration (CKD-EPI) equation refit??without adjustment for race. BUN/Creatinine Ratio 22.3 LAB CHEMISTRY METHOD 09/10/2024 10:[address] [facility] Calcium 8.4(L) 8.5 - 10.5 mg/dL LAB CHEMISTRY METHOD 09/10/2024 10:[address] [facility] Blood Venous blood specimen / Unknown Venipuncture / Unknown 09/10/2024 6:26 AM EDT 09/10/2024 9:57 AM EDT us Alize Go MD LAB BLOOD ORDERABLES Fin al Result [facility] [address] [place] [address], [place] [phone] * (ABNORMAL) Urinalysis with reflex microscopic and culture (08/30/2024 12:30 PM EDT) Only the most recent of2 resultswithin the time period is included. Specific [place] Urine 1.017 1.003 - 1.030 LAB URINALYSIS - AUTOMATED METHOD 08/31/2024 8:[address] [facility] pH, Urine 6.0 5.0 - 8.0 pH LAB URINALYSIS - AUTOMATED METHOD 08/31/2024 8:[address] [facility] Leukocytes, Urine Small(A) Negative LAB URINALYSIS - AUTOMATED METHOD 08/31/2024 8:[address] [facility] Nitrite, Urine Negative Negative LAB URINALYSIS - AUTOMATED METHOD 08/31/2024 8:[address] [facility] Protein, Urine Negative <=Trace mg/dL LAB URINALYSIS - AUTOMATED METHOD 08/31/2024 8:[address] [facility] Glucose, Urine Negative Negative mg/dL LAB URINALYSIS - AUTOMATED METHOD 08/31/2024 8:[address] [facility] Ketones, Urine Negative Negative mg/dL LAB URINALYSIS - AUTOMATED METHOD 08/31/2024 8:[address] [facility] Urobilinogen, Urine 1.0 0.2 - 1.0 mg/dL LAB URINALYSIS - AUTOMATED METHOD 08/31/2024 8:[address] [facility] Bilirubin, Urine Negative Negative LAB URINALYSIS - AUTOMATED METHOD 08/31/2024 8:[address] [facility] Blood, Urine Negative Negative LAB URINALYSIS - AUTOMATED METHOD 08/31/2024 8:[address] [facility] RBC, Urine 6.4(H) 0 - 4 /HPF LAB URINALYSIS - AUTOMATED METHOD 08/31/2024 8:[address] [facility] WBC, Urine 2.2 0 - 4 /HPF LAB URINALYSIS - AUTOMATED METHOD 08/31/2024 8:[address] [facility] Squamous Epithelial, Urine 20 0 - 60 /LPF LAB URINALYSIS - AUTOMATED METHOD 08/31/2024 8:[address] [facility] Bacteria, Urine Negative Negative /HPF LAB URINALYSIS - AUTOMATED METHOD 08/31/2024 8:[address] [facility] Hyaline Casts, Urine 0.8 0 - 3 /LPF LAB URINALYSIS - AUTOMATED METHOD 08/31/2024 8:[address] [facility] Urine Urine specimen obtained by clean catch procedure / Unknown Non-blood Collection / Unknown 08/30/2024 12:30 PM EDT 08/31/2024 7:34 AM EDT us Alize Go MD LAB URINE ORDERABLES Fin al Result [facility] [address] [place] [address], * Freire urine culture tube (08/30/2024 12:30 PM EDT) Only the most recent of2 resultswithin the time period is included. Extra Tube Hold for add-ons. 08/31/2024 9:[address] [facility] Comment:Auto resulted. Urine Urine specimen obtained by clean catch procedure / Unknown Non-blood Collection / Unknown 08/30/2024 12:30 PM EDT 08/31/2024 7:34 AM EDT Alize Go MD LAB URINE ORDERABLES Fin al Result Performing Organization Address [facility]/ZIP Co de Phone Number [facility] [address] [place] [address], [place] [phone] * Culture urine (08/30/2024 12:30 PM EDT) Only the most recent of2 resultswithin the time period is included. Pathologist [facility] [place] Culture, Urine 10,000-49,000 CFU/mL Mixed bacterial morphotypes present suggestive of possible contamination during collection. Suggest appropriate recollection if clinically indicated. 09/01/2024 9:[address] [facility] Urine Urine specimen obtained by clean catch procedure / Unknown Non-blood Collection / Unknown 08/30/2024 12:30 PM EDT 08/31/2024 8:40 AM EDT Alize Go MD LAB MICROBIOLOGY - GENER AL ORDERABLES Final Result Performing Organization Address City/[facility]/ZIP Co de Phone Number [facility] [address] [place] [address], [place] [phone] * (ABNORMAL) CBC auto differential (07/10/2024 6:12 AM EST) WBC 4.4(L) 4.8 - 10.8 K/[facility] LAB HEMETOLOGY METHOD 07/10/2024 11:[address] [facility] RBC 3.80(L) 4.50 - 5.50 M/mcL LAB HEMETOLOGY METHOD 07/10/2024 11:48 AM [facility] Hemoglobin 11.8(L) 13.5 - 17.5 g/dL LAB HEMETOLOGY METHOD 07/10/2024 11:48 AM [facility] Hematocrit 36.4(L) 42.0 - 54.0 % LAB HEMETOLOGY METHOD 07/10/2024 11:48 AM [facility] MCV 97.1 79.0 - 98.0 FL LAB HEMETOLOGY METHOD 07/10/2024 11:48 AM [facility] MCH 31.5 27.0 - 32.0 pcg LAB HEMETOLOGY METHOD 07/10/2024 11:48 AM [facility] MCHC 32.4 32.0 - 37.0 g/dL LAB HEMETOLOGY METHOD 07/10/2024 11:48 AM [facility] RDW 16.7(H) 11.0 - 15.0 % LAB HEMETOLOGY METHOD 07/10/2024 11:48 AM [facility] Platelets 105(L) 130 - 400 K/mcL LAB HEMETOLOGY METHOD 07/10/2024 11:48 AM [facility] MPV 12.1(H) 7.0 - 11.0 FL LAB HEMETOLOGY METHOD 07/10/2024 11:48 AM [facility] NRBC 0.0 <1.0 % LAB HEMETOLOGY METHOD 07/10/2024 11:48 AM [facility] NRBC Absolute 0.00 <0.10 K/mcL LAB HEMETOLOGY METHOD 07/10/2024 11:48 AM [facility] Neutrophils Relative 74.9 % LAB HEMETOLOGY METHOD 07/10/2024 11:48 AM [facility] Lymphocytes Relative 7.8 % LAB HEMETOLOGY METHOD 07/10/2024 11:48 AM [facility] Monocytes Relative 16.2 % LAB HEMETOLOGY METHOD 07/10/2024 11:48 AM [facility] Eosinophils Relative 0.0 % LAB HEMETOLOGY METHOD 07/10/2024 11:48 AM [facility] Basophils Relative 0.2 % LAB HEMETOLOGY METHOD 07/10/2024 11:48 AM [facility] Immature Granulocytes Relative 0.9 % LAB HEMETOLOGY METHOD 07/10/2024 11:48 AM [facility] Neutrophils Absolute 3.27 1.50 - 7.00 K/mcL LAB HEMETOLOGY METHOD 07/10/2024 11:48 AM [facility] Lymphocytes Absolute 0.34(L) 1.00 - 5.00 K/mcL LAB HEMETOLOGY METHOD 07/10/2024 11:48 AM [facility] Monocytes Absolute 0.71 0.20 - 1.00 K/mcL LAB HEMETOLOGY METHOD 07/10/2024 11:48 AM [facility] Eosinophils Absolute 0.00 0.00 - 0.50 K/mcL LAB HEMETOLOGY METHOD 07/10/2024 11:48 AM [facility] Basophils Absolute 0.01 0.00 - 0.20 K/mcL LAB HEMETOLOGY METHOD 07/10/2024 11:48 AM [facility] Immature Granulocytes Absolute 0.04(H) 0.00 - 0.03 K/mcL LAB HEMETOLOGY METHOD 07/10/2024 11:48 AM [facility] Blood Venous blood specimen / Unknown Venipuncture / Unknown 07/10/2024 6:12 AM EST 07/10/2024 9:46 AM EST Alize Go MD LAB BLOOD ORDERABLES Fin al Result [facility] [address] [place] [address], [place] [phone] * Uric acid (07/10/2024 6:12 AM EST) Uric Acid 6.3 3.7 - 9.2 mg/dL LAB CHEMISTRY METHOD 07/10/2024 11:[address] [facility] Blood Venous blood specimen / Unknown Venipuncture / Unknown 07/10/2024 6:12 AM EST 07/10/2024 9:46 AM EST Alize Go MD LAB BLOOD ORDERABLES Fin al Result Performing Organization Address [facility]/ZIP Co de Phone Number [facility] [address] [place] [address], [place] [phone] from Last 3 Months Insurance [employer] - [place] MEDICARE ADVANTAGE Care Teams Produce Buyer Relationship Specialty Start Date End Date Alize Go MD [address] [place] [id number] PCP - General Family Medicine 03/22/24
--- OUTSIDE RECORDS SUMMARY | 2024-09-29 19:17 | XMS_ITS | Encounter Summary ---
Author Organization [email or web address] [facility] Address [address] [place] [address] Care Team Providers Care System Developer Associate Manager Name Role Phone Alize Go MD Primary Care Provider + Encounter Details Date Type Department Care Team (Late st Contact Info) Description 09/09/2024 Lab Requisition [facility] - Main Lab [address] [facility] [place] [address] Alize Go MD [address] [phone] Weakness Social History Tobacco Use Types Packs/Day [...] Associated Diagnosis Comments COMPLETE BLOOD COUNT Routine 09/10/2024 6:26 AM EDT Weakness BASIC METABOLIC PANEL Routine 09/10/2024 6:26 AM EDT Weakness documented in this encounter Results * (ABNORMAL) Basic metabolic panel (09/10/2024 6:26 AM EDT) Sodium 139 133 - 145 mmol/L LAB CHEMISTRY METHOD 09/10/2024 10:[address] [facility] Potassium 4.2 3.5 - 5.5 mmol/L LAB CHEMISTRY METHOD 09/10/2024 10:[address] [facility] Chloride 109 96 - 110 mmol/L LAB CHEMISTRY METHOD 09/10/2024 10:[address] [facility] CO2 24 21 - 32 mmol/L LAB CHEMISTRY METHOD 09/10/2024 10:37 AM [facility] Anion Gap 6 3 - 11 LAB CHEMISTRY METHOD 09/10/2024 10:37 AM [facility] Glucose 87 70 - 100 mg/dL LAB CHEMISTRY METHOD 09/10/2024 10:37 AM [facility] BUN 29(H) 5 - 25 mg/dL LAB CHEMISTRY METHOD 09/10/2024 10:37 AM [facility] Creatinine 1.30 0.70 - 1.30 mg/dL LAB CHEMISTRY METHOD 09/10/2024 10:37 AM [facility] eGFR 54(L) >=60 mL/min/1. 73m2 LAB CHEMISTRY METHOD 09/10/2024 10:37 AM [facility] Comment:Calculation based on the??Chronic Kidney Disease Epidemiology Collaboration (CKD-EPI) equation refit??without adjustment for race. BUN/Creatinine Ratio 22.3 LAB CHEMISTRY METHOD 09/10/2024 10:37 AM [facility] Calcium 8.4(L) 8.5 - 10.5 mg/dL LAB CHEMISTRY METHOD 09/10/2024 10:37 AM [facility] Blood Venous blood specimen / Unknown Venipuncture / Unknown 09/10/2024 6:26 AM EDT 09/10/2024 9:57 AM EDT us Alize Go MD LAB BLOOD ORDERABLES Fin al Result [facility] [address] [place] [address], * (ABNORMAL) Complete blood count (09/10/2024 6:26 AM EDT) WBC 8.4 4.8 - 10.8 K/mcL LAB HEMETOLOGY METHOD 09/10/2024 10:12 AM [facility] RBC 4.00(L) 4.50 - 5.50 M/mcL LAB HEMETOLOGY METHOD 09/10/2024 10:12 AM [facility] Hemoglobin 12.7(L) 13.5 - 17.5 g/dL LAB HEMETOLOGY METHOD 09/10/2024 10:12 AM [facility] Hematocrit 38.8(L) 42.0 - 54.0 % LAB HEMETOLOGY METHOD 09/10/2024 10:12 AM [facility] MCV 96.8 79.0 - 98.0 FL LAB HEMETOLOGY METHOD 09/10/2024 10:12 AM [facility] MCH 31.7 27.0 - 32.0 pcg LAB HEMETOLOGY METHOD 09/10/2024 10:12 AM [facility] MCHC 32.7 32.0 - 37.0 g/dL LAB HEMETOLOGY METHOD 09/10/2024 10:12 AM [facility] RDW 14.6 11.0 - 15.0 % LAB HEMETOLOGY METHOD 09/10/2024 10:12 AM [facility] Platelets 154 130 - 400 K/mcL LAB HEMETOLOGY METHOD 09/10/2024 10:12 AM [facility] MPV 11.5(H) 7.0 - 11.0 FL LAB HEMETOLOGY METHOD 09/10/2024 10:12 AM [facility] NRBC 0.0 <1.0 % LAB HEMETOLOGY METHOD 09/10/2024 10:12 AM [facility] NRBC Absolute 0.00 <0.10 K/mcL LAB HEMETOLOGY METHOD 09/10/2024 10:12 AM [facility] Blood Venous blood specimen / Unknown Venipuncture / Unknown 09/10/2024 6:26 AM EDT 09/10/2024 9:57 AM EDT us Alize Go MD LAB BLOOD ORDERABLES Fin al Result [facility] ([facility]) [facility] [address] [place] [address], documented in this encounter Visit Diagnoses Diagnosis Weakness Other malaise and fatigue documented in this encounter Care Teams System Developer Associate Manager Relationship Specialty Start Date End Date Alize Go MD [address] [place] [id number] PCP - General Family Medicine 03/22/24 documented as of this encounter
--- OUTSIDE RECORDS SUMMARY | 2024-09-29 19:17 | XMS_ITS | Encounter Summary ---
Author Organization [employer] Address [address] [place] [address] Care Team Providers Care Supervisor Shearing Name Role Phone Alize Go MD Primary Care Provider + Encounter Details Date Type Department Care Team (Late st Contact Info) Description 08/31/2024 Lab Requisition [facility] - Main Lab [address] [facility] [place] [address] Alize Go MD [address] [facility] [address] [place], [place] [phone] Dysuria Social History Tobacco Use Types Packs/Day Years [...] Associated Diagnosis Comments URINALYSIS WITH REFLEX MICROSCOPIC AND CULTURE Routine 08/30/2024 12:30 PM EDT Dysuria FREIRE URINE CULTURE TUBE Routine 08/30/2024 12:30 PM EDT Dysuria URINALYSIS WITH REFLEX MICROSCOPIC AND CULTURE Routine 08/30/2024 12:30 PM EDT Dysuria CULTURE URINE Routine 08/30/2024 12:30 PM EDT Dysuria documented in this encounter Results * Culture urine (08/30/2024 12:30 PM EDT) Culture, Urine 10,000-49,000 CFU/mL Mixed bacterial morphotypes present suggestive of possible contamination during collection. Suggest appropriate recollection if clinically indicated. 09/01/2024 9:10 AM T [facility] Urine Urine specimen obtained by clean catch procedure / Unknown Non-blood Collection / Unknown 08/30/2024 12:30 PM EDT 08/31/2024 8:40 AM EDT us Alize Go MD LAB MICROBIOLOGY - GENER AL ORDERABLES Final Result [facility] [address] [place] [address], [place] [phone] * (ABNORMAL) Urinalysis with reflex microscopic and culture (08/30/2024 12:30 PM EDT) Specific [place] Urine 1.017 1.003 - 1.030 LAB URINALYSIS - AUTOMATED METHOD 08/31/2024 8:40 AM [facility] pH, Urine 6.0 5.0 - 8.0 pH LAB URINALYSIS - AUTOMATED METHOD 08/31/2024 8:40 AM [facility] Leukocytes, Urine Small(A) Negative LAB URINALYSIS - AUTOMATED METHOD 08/31/2024 8:40 AM [facility] Nitrite, Urine Negative Negative LAB URINALYSIS - AUTOMATED METHOD 08/31/2024 8:40 AM [facility] Protein, Urine Negative <=Trace mg/dL LAB URINALYSIS - AUTOMATED METHOD 08/31/2024 8:40 AM [facility] Glucose, Urine Negative Negative mg/dL LAB URINALYSIS - AUTOMATED METHOD 08/31/2024 8:40 AM [facility] Ketones, Urine Negative Negative mg/dL LAB URINALYSIS - AUTOMATED METHOD 08/31/2024 8:40 AM [facility] Urobilinogen, Urine 1.0 0.2 - 1.0 mg/dL LAB URINALYSIS - AUTOMATED METHOD 08/31/2024 8:40 AM EDT [facility] Bilirubin, Urine Negative Negative LAB URINALYSIS - AUTOMATED METHOD 08/31/2024 8:40 AM T [facility] Blood, Urine Negative Negative LAB URINALYSIS - AUTOMATED METHOD 08/31/2024 8:40 AM [facility] RBC, Urine 6.4(H) 0 - 4 /HPF LAB URINALYSIS - AUTOMATED METHOD 08/31/2024 8:40 AM [facility] WBC, Urine 2.2 0 - 4 /HPF LAB URINALYSIS - AUTOMATED METHOD 08/31/2024 8:40 AM [facility] Squamous Epithelial, Urine 20 0 - 60 /LPF LAB URINALYSIS - AUTOMATED METHOD 08/31/2024 8:40 AM [facility] Bacteria, Urine Negative Negative /HPF LAB URINALYSIS - AUTOMATED METHOD 08/31/2024 8:40 AM [facility] Hyaline Casts, Urine 0.8 0 - 3 /LPF LAB URINALYSIS - AUTOMATED METHOD 08/31/2024 8:40 AM [facility] Urine Urine specimen obtained by clean catch procedure / Unknown Non-blood Collection / Unknown 08/30/2024 12:30 PM EDT 08/31/2024 7:34 AM EDT Alize Go MD LAB URINE ORDERABLES Fin al Result [facility] [address] [place] [address], * [place] urine culture tube (08/30/2024 12:30 PM EDT) Extra Tube Hold for add-ons. 08/31/2024 9:01 AM EDT [facility] Comment:Auto resulted. Urine Urine specimen obtained by clean catch procedure / Unknown Non-blood Collection / Unknown 08/30/2024 12:30 PM EDT 08/31/2024 7:34 AM EDT us Alize Go MD LAB URINE ORDERABLES Fin al Result [facility] ([facility]) [facility] [address] [place] [address], documented in this encounter Visit Diagnoses Diagnosis Dysuria documented in this encounter Care Teams Supervisor Shearing Relationship Specialty Start Date End Date Alize Go MD [address] [address] PCP - General Family Medicine 03/22/24 documented as of this encounter
--- OUTSIDE RECORDS SUMMARY | 2024-09-29 19:17 | XMS_ITS | Encounter Summary ---
Author Organization [employer] [facility] Address [address] [place] [address] Care Team Providers Care Physical Therapy Aides Teacher Name Role Phone Alize Go MD Primary Care Provider + Encounter Details Date Type Department Care Team (Late st Contact Info) Description 04/10/2024 Lab Requisition [facility] - Main Lab [address] [facility] [place] [address] Alize Go MD [address] [facility] 1 [place], [place] [phone] Weakness Social History Tobacco Use Types Packs/Day [...] Associated Diagnosis Comments COMPLETE BLOOD COUNT Routine 04/12/2024 6:48 AM EST Weakness BASIC METABOLIC PANEL Routine 04/12/2024 6:48 AM EST Weakness documented in this encounter Results * (ABNORMAL) Basic metabolic panel (04/12/2024 6:48 AM EST) Sodium 140 133 - 145 mmol/L LAB CHEMISTRY METHOD 04/12/2024 11:00 AM EST [facility] Potassium 4.1 3.5 - 5.5 mmol/L LAB CHEMISTRY METHOD 04/12/2024 11:00 AM EST [facility] Chloride 106 96 - 110 mmol/L LAB CHEMISTRY METHOD 04/12/2024 11:00 AM EST [facility] CO2 28 21 - 32 mmol/L LAB CHEMISTRY METHOD 04/12/2024 11:00 AM [facility] Anion Gap 6 3 - 11 LAB CHEMISTRY METHOD 04/12/2024 11:00 AM [facility] Glucose 89 70 - 100 mg/dL LAB CHEMISTRY METHOD 04/12/2024 11:00 AM [facility] BUN 27(H) 5 - 25 mg/dL LAB CHEMISTRY METHOD 04/12/2024 11:00 AM [facility] Creatinine 1.25 0.70 - 1.30 mg/dL LAB CHEMISTRY METHOD 04/12/2024 11:00 AM [facility] LAB eGFR 56(L) >=60 mL/min/1. 73m2 LAB CHEMISTRY METHOD 04/12/2024 11:00 AM [facility] LAB Comment:Calculation based on the??Chronic Kidney Disease Epidemiology Collaboration (CKD-EPI) equation refit??without adjustment for race. BUN/Creatinine Ratio 21.6 LAB CHEMISTRY METHOD 04/12/2024 11:00 AM [facility] Calcium 9.0 8.5 - 10.5 mg/dL LAB CHEMISTRY METHOD 04/12/2024 11:00 AM [facility] Blood Venous blood specimen / Unknown Venipuncture / Unknown 04/12/2024 6:48 AM EST 04/12/2024 9:55 AM EST us Alize Go MD LAB BLOOD ORDERABLES Fin al Result [facility] [address] [place] [address], * (ABNORMAL) Complete blood count (04/12/2024 6:48 AM EST) WBC 8.6 4.8 - 10.8 K/mcL LAB HEMETOLOGY METHOD 04/12/2024 10:33 AM [facility] RBC 4.10(L) 4.50 - 5.50 M/mcL LAB HEMETOLOGY METHOD 04/12/2024 10:33 AM [facility] Hemoglobin 11.9(L) 13.5 - 17.5 g/dL LAB HEMETOLOGY METHOD 04/12/2024 10:33 AM [facility] Hematocrit 38.1(L) 42.0 - 54.0 % LAB HEMETOLOGY METHOD 04/12/2024 10:33 AM [facility] LAB MCV 92.5 79.0 - 98.0 FL LAB HEMETOLOGY METHOD 04/12/2024 10:33 AM [facility] LAB MCH 28.9 27.0 - 32.0 pcg LAB HEMETOLOGY METHOD 04/12/2024 10:33 AM [facility] MCHC 31.2(L) 32.0 - 37.0 g/dL LAB HEMETOLOGY METHOD 04/12/2024 10:33 AM [facility] RDW 17.5(H) 11.0 - 15.0 % LAB HEMETOLOGY METHOD 04/12/2024 10:33 AM [facility] Platelets 189 130 - 400 K/mcL LAB HEMETOLOGY METHOD 04/12/2024 10:33 AM [facility] LAB MPV 11.8(H) 7.0 - 11.0 FL LAB HEMETOLOGY METHOD 04/12/2024 10:33 AM [facility] NRBC 0.0 <1.0 % LAB HEMETOLOGY METHOD 04/12/2024 10:33 AM [facility] NRBC Absolute 0.00 <0.10 K/mcL LAB HEMETOLOGY METHOD 04/12/2024 10:33 AM [facility] Blood Venous blood specimen / Unknown Venipuncture / Unknown 04/12/2024 6:48 AM EST 04/12/2024 9:55 AM EST us Alize Go MD LAB BLOOD ORDERABLES Fin al Result [facility] ([facility]) [facility] [address] [place] [address], documented in this encounter Visit Diagnoses Diagnosis Weakness Other malaise and fatigue documented in this encounter Care Teams Physical Therapy Aides Teacher Relationship Specialty Start Date End Date Alize Go MD [address] [place] [id number] PCP - General Family Medicine 03/22/24 documented as of this encounter
[2024-09-29 19:18] LABS: Basophils Percent Auto 0.2 % (0-2); Eosinophils Percent Auto 0.3 % (0-4); Hematocrit 37.2 % (42.0-52.0); Hemoglobin 12.5 g/dl (14.0-18.0); Imm Gran Abs Auto 0.06 X10*3/uL (0.00-0.03); Imm Gran Pct Auto 0.6 % (0.0-0.4); Lymphocytes Absolute Auto 0.7 X10*3/uL (1.2-4.9); Lymphocytes Percent Auto 6.9 % (20-40); Mean Corpuscular HGB Conc 33.6 g/dl (31.0-36.0); Mean Corpuscular Hemoglobin 32.3 pg (27.0-33.0); Mean Corpuscular Volume 96.1 fL (80.0-98.0); Mean Platelet Volume 11.4 fL (9.4-12.4); Monocytes Absolute Auto 1.1 X10*3/uL (0.1-1.2); Monocytes Percent Auto 11.1 % (2-11); Neutrophils Percent Auto 80.9 % (45-73); Platelet Count 145 X10*3/uL (160-400); Red Blood Count 3.87 X10*6/uL (4.60-5.80); Red Cell Distribution Width 15.3 % (11.0-16.0); White Blood Count 9.9 X10*3/uL (4.8-10.8)
--- OUTSIDE RECORDS SUMMARY | 2024-09-29 19:18 | XMS_ITS | Encounter Summary ---
Author Organization [facility] [facility] Address [address] [place] [address] Care Team Providers Care Lead Javascript Engineer Name Role Phone Alize Go MD Primary Care Provider + Encounter Details Date Type Department Care Team (Late st Contact Info) Description 05/10/2024 Lab Requisition [facility] - Main Lab 299 [facility] [place] [address] Alize Go MD [address] [facility] 1 [place], [place] [phone] Weakness Social History Tobacco Use Types Packs/Day [...] Associated Diagnosis Comments COMPLETE BLOOD COUNT Routine 05/13/2024 7:18 AM EST Weakness BASIC METABOLIC PANEL Routine 05/13/2024 7:18 AM EST Weakness documented in this encounter Results * (ABNORMAL) Basic metabolic panel (05/13/2024 7:18 AM EST) Sodium 141 133 - 145 mmol/L LAB CHEMISTRY METHOD 05/13/2024 12:15 PM EST [facility] Potassium 4.1 3.5 - 5.5 mmol/L LAB CHEMISTRY METHOD 05/13/2024 12:15 PM EST [facility] Chloride 106 96 - 110 mmol/L LAB CHEMISTRY METHOD 05/13/2024 12:15 PM EST [facility] CO2 29 21 - 32 mmol/L LAB CHEMISTRY METHOD 05/13/2024 12:[address] [facility] Anion Gap 6 3 - 11 LAB CHEMISTRY METHOD 05/13/2024 12:[address] [facility] Glucose 88 70 - 100 mg/dL LAB CHEMISTRY METHOD 05/13/2024 12:[address] [facility] BUN 31(H) 5 - 25 mg/dL LAB CHEMISTRY METHOD 05/13/2024 12:[address] [facility] Creatinine 1.45(H) 0.70 - 1.30 mg/dL LAB CHEMISTRY METHOD 05/13/2024 12:[address] [facility] LAB eGFR 47(L) >=60 mL/min/1. 73m2 LAB CHEMISTRY METHOD 05/13/2024 12:[address] [facility] LAB Comment:Calculation based on the??Chronic Kidney Disease Epidemiology Collaboration (CKD-EPI) equation refit??without adjustment for race. BUN/Creatinine Ratio 21.4 LAB CHEMISTRY METHOD 05/13/2024 12:[address] [facility] Calcium 8.9 8.5 - 10.5 mg/dL LAB CHEMISTRY METHOD 05/13/2024 12:[address] [facility] Blood Venous blood specimen / Unknown Venipuncture / Unknown 05/13/2024 7:18 AM EST 05/13/2024 10:43 AM EST us Alize Go MD LAB BLOOD ORDERABLES Fin al Result [facility] [address] [place] [address], * (ABNORMAL) Complete blood count (05/13/2024 7:18 AM EST) WBC 11.1(H) 4.8 - 10.8 K/mcL LAB HEMETOLOGY METHOD 05/13/2024 12:[address] [facility] RBC 4.40(L) 4.50 - 5.50 M/mcL LAB HEMETOLOGY METHOD 05/13/2024 12:[address] [facility] Hemoglobin 13.0(L) 13.5 - 17.5 g/dL LAB HEMETOLOGY METHOD 05/13/2024 12:[address] [facility] Hematocrit 41.8(L) 42.0 - 54.0 % LAB HEMETOLOGY METHOD 05/13/2024 12:[address] [facility] MCV 94.6 79.0 - 98.0 FL LAB HEMETOLOGY METHOD 05/13/2024 12:[address] [facility] MCH 29.4 27.0 - 32.0 pcg LAB HEMETOLOGY METHOD 05/13/2024 12:[address] [facility] MCHC 31.1(L) 32.0 - 37.0 g/dL LAB HEMETOLOGY METHOD 05/13/2024 12:[address] [facility] RDW 17.4(H) 11.0 - 15.0 % LAB HEMETOLOGY METHOD 05/13/2024 12:[address] [facility] Platelets 212 130 - 400 K/mcL LAB HEMETOLOGY METHOD 05/13/2024 12:[address] [facility] MPV 11.7(H) 7.0 - 11.0 FL LAB HEMETOLOGY METHOD 05/13/2024 12:[address] [facility] NRBC 0.0 <1.0 % LAB HEMETOLOGY METHOD 05/13/2024 12:[address] [facility] NRBC Absolute 0.00 <0.10 K/mcL LAB HEMETOLOGY METHOD 05/13/2024 12:[address] [facility] Blood Venous blood specimen / Unknown Venipuncture / Unknown 05/13/2024 7:18 AM EST 05/13/2024 10:45 AM EST us Alize Go MD LAB BLOOD ORDERABLES Fin al Result [facility] ([facility]) [facility] [address] [place] [address], documented in this encounter Visit Diagnoses Diagnosis Weakness Other malaise and fatigue documented in this encounter Care Teams Lead Javascript Engineer Relationship Specialty Start Date End Date Alize Go MD [address] [id number] PCP - General Family Medicine 03/22/24 documented as of this encounter
--- OUTSIDE RECORDS SUMMARY | 2024-09-29 19:18 | XMS_ITS | Continuity of Care Document ---
Author Organization [facility] Address [address] [facility] [address] [place] [address] Phone [phone] Care Team Providers Care First Cook Name Role Phone Dario Mason M.D. Care Team Information Rece iver [phone] Problems Active Problems Provider Date Edema Dario Mason M.D. Onset: 02/2023 Congestive heart failure Dario Mason M.D. O nset: 03/24/2023 Hyperthyroidism Dario Mason M.D. Onset: Anxiety Dario Mason M.D. Onset: Essential hypertension Dario Mason M.D. Ons et: 04/04/2022 Social History Type Date Description Comments Sex Unknown Lives With Alone ETOH Use Rarely consumes alcohol Tobacco Use Start: Unknown End: Unknown Patient is a former smoker Quit 10 plus years ago Smoking Status Reviewed: 10/03/22 Patient is a former smoker Quit 10 plus years ago Allergies and adverse reactions Description No Known Drug Allergies Medications Active Medications SIG Qnty Indications Ordering Provider Date Amlodipine Eofgvfym7ga Tablets 1 by mouth every day Dario Mason M.D. 03/24/[address] 1 by mouth twice daily 180caps Dario Mason M.D. 04/04/2022 Fluxcpqpvwo463tb Tablets 1 by mouth every day 90tabs Dario Mason M.D. 02/08/2022 Lorazepam0.5mg Tablets 1 tabs by mouth three times a day 90tazeus Mason M.D. 01/21/2022 Qoxqljqihu45br Tablets 1 by mouth every day Unknown Pipvxtmooq92xr Tablets Take One Tablet By Mouth Every Day Jairo Mendez MD Vital Signs Date Vital Result Comment 03/24/2023 11:17am BP Systolic 134 mmHg BP Diastolic 68 mmHg Heart Rate 76 /min Height 67 inches 5'7 Weight 206.00 lb BMI (Body Mass Index) 32.3 kg/m2 Results Test Acquired Date Facility Test Result H/L Range Note Culture Urine 01/31/2023 [facility] Specimen Description URINE 1 Special Requests NONE Reflexed fr <SEE NOTE> 2 Culture NO GROWTH Report Status FINAL 02/01/2023 3 Urinalysis W/Reflex Culture 01/31/2023 [facility] Appear/Color LIGHT YELLOW 4 SP. [place] 1.016 (1.002- 1.030) Urine PH 6.0 (5.0-8. 0) Urine Albumin TRACE Abnormal (Neg) Urine Glucose NEGATIVE (Neg) Urine Ketones NEGATIVE (Neg) Urine Bilirubin NEGATIVE (Neg) Urine Hemoglobin NEGATIVE (Neg) Urine Nitrite NEGATIVE (Neg) Urine Leukocyte TRACE Abnormal (Neg) Urobilinogen NORMAL mg/dL (Norm) Urine WBCs 6 /HPF High (0-5) Urine RBCs 1 /HPF (0-3) Mucus SLIGHT /LPF Squamous Epith <1 /HPF (0-8) Clarity CLEAR (Clear) Culture Indication CULTURE INDICATE <SEE NOTE> 5 Complete Abc With Diff 09/21/2022 [facility] WBC 7.7 K/MM3 (4.0-11 .0) RBC 4.75 M/MM3 (4.70-6 .10) HGB 15.4 GM/DL (13.7-1 7.1) HCT 46.2 % (40.5-5 0.0) MCV 97.3 FL High (80.0-9 4.0) MCH 32.4 pg (27.0-3 4.0) MCHC 33.3 g/dL (33.0-3 7.0) PLT 164 K/MM3 (150-46 0) RDW-SD 52.5 FL High (<47.0) MPV 11.9 FL (9.4-12 .4) Automated NRBC 0.0 #/100WBC'S Abs. NRBC 0.0 K/MM3 Neut # 6.4 K/MM3 (1.3-7. 0) Lymph # 0.7 K/MM3 Low (0.8-3. 1) Treutlen# 0.5 K/MM3 (0.4-1. 3) Eo # 0.0 K/MM3 (0.0-0. 4) Baso # 0.0 K/MM3 (0.0-0. 1) Abs. Imm Gran 0.0 K/MM3 Neut 83.0 % High (44-76) Lymph 9.0 % Low (15-43) Monocyte 6.8 % (4.5-10 .5) Eo 0.5 % (0-6) Baso 0.3 % (0-2) Imm Gran 0.4 % Comprehensive Metabolic Panl 09/21/2022 [facility] Glucose 111 mg/dL High (70-99) 6 BUN 14 mg/dL (8-23) Creatinine 1.1 mg/dL (0.7-1. 2) Sodium 144 mmol/L (133-14 5) Potassium 4.0 mmol/L (3.6-5. 2) Chloride 104 mmol/L (98-107 ) Bicarbonate 28 mmol/L (22-29) Anion Gap 12 (4-17) Albumin 4.4 GM/DL (3.4-4. 8) Calcium 9.3 mg/dL (8.6-10 .5) Bilirubin,Total 0.9 mg/dL (0-1.2 ) Total Protein 6.3 GM/DL (6.2-8. 2) Ag Ratio 2.3 Ast 14 U/L (0-40) Alk Phos 94 U/L (40-129 ) Alt 9 U/L (0-41) Estimated GFR Creatinine 70 ML/MIN/1.7 3M2 7 TSH With Reflex To FT4 09/21/2022 [facility] TSH With Reflex To FT4 0.87 uIU/mL (0.4-4. 2) TSH With Reflex To FT4 04/04/2022 [facility] TSH With Reflex To FT4 <pending> 1 URINE CLEAN CATCH/CA DSTREAM 2 NONE Reflexed from T [id number] FINAL 02/01/2023 4 CLEAR 5 CULTURE INDICATED 6 Patient not fasting 7 Creatinine based est imated glomerular filtration (eGFR) in adults is calculated using the National Kid[employer] recommended 2020 CKD-EPI equation. Estimates GFR from serum creatinine, age and sex. Procedures Date Code Description Status 10/31/2022 33514 Remove Impacted Cerumen Comp leted Medical Devices Description No Information Available Encounters Type Date Location Provider Dx Diagnosis Office Visit 03/24/2023 11:00a Main Office Dario Mason M.D. 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 03/24/2023 E05.90 Hyperthyroidism Dario carter M.D. 03/24/2023 F41.9 Anxiety Dario Mason M.D. 03/24/2023 I50.9 Congestive heart failure Shaan Mason M.D. 03/24/2023 R60.9 Edema Dario Mason M.D. Plan of Treatment 03/24/2023 - Dario Mason M.D.* I10 Essential hypertension * E05.90 Hyperthyroidism * F41.9 Anxiety * I50.9 Congestive heart failure * R60.9 Edema * * New Labs:* Urinalysis Complete, Ordered: 03/24/23 * TSH With Reflex To FT4, Ordered: 03/24/23 * Basic Metabolic Panel, Ordered: 03/24/23 Functional Status Description No Information Available Mental Status Description No Information Available Referrals Refer to Dr Reason for Referral Status Appt [facility] Urology PERSISTENT BURNING URINE AND GREGORY S NEG CULTURE Closed 02/10/[address] [place], [place] [id number] [phone]
--- OUTSIDE RECORDS SUMMARY | 2024-09-29 19:18 | XMS_ITS | Encounter Summary ---
Author Organization [facility] Address [address] [place] [address] Care Team Providers Care Making Department Preparer Name Role Phone Alize Go MD Primary Care Provider + Encounter Details Date Type Department Care Team (Late st Contact Info) Description 07/10/2024 Lab Requisition [facility] - Main Lab [address] [place] [address] Alize Go MD [address] [facility] 1 [place], [place] [phone] Acute cough Social History Tobacco Use Types Packs/Day Years [...] Procedure Name Priority Date/Time Associated Diagnosis Comments CBC WITH AUTO DIFFERENTIAL Routine 07/10/2024 6:12 AM EST Acute cough CBC AND DIFFERENTIAL Routine 07/10/2024 6:12 AM EST Acute cough URIC ACID Routine 07/10/2024 6:12 AM EST Acute cough BASIC METABOLIC PANEL Routine 07/10/2024 6:12 AM EST Acute cough documented in this encounter Results * (ABNORMAL) CBC auto differential (07/10/2024 6:12 AM EST) [facility] Signature WBC 4.4(L) 4.8 - 10.8 K/mcL LAB HEMETOLOGY METHOD 07/10/2024 11:48 AM EST [facility] RBC 3.80(L) 4.50 - 5.50 M/mcL LAB HEMETOLOGY METHOD 07/10/2024 11:48 AM [facility] LAB Hemoglobin 11.8(L) 13.5 - 17.5 g/dL LAB HEMETOLOGY METHOD 07/10/2024 11:48 AM [facility] LAB Hematocrit 36.4(L) 42.0 - 54.0 % LAB HEMETOLOGY METHOD 07/10/2024 11:48 AM [facility] LAB MCV 97.1 79.0 - 98.0 FL LAB HEMETOLOGY METHOD 07/10/2024 11:48 AM [facility] LAB MCH 31.5 27.0 - 32.0 pcg LAB HEMETOLOGY METHOD 07/10/2024 11:48 AM [facility] LAB MCHC 32.4 32.0 - 37.0 g/dL LAB HEMETOLOGY METHOD 07/10/2024 11:48 AM [facility] LAB RDW 16.7(H) 11.0 - 15.0 % LAB HEMETOLOGY METHOD 07/10/2024 11:48 AM [facility] LAB Platelets 105(L) 130 - 400 K/mcL LAB HEMETOLOGY METHOD 07/10/2024 11:48 AM [facility] LAB MPV 12.1(H) 7.0 - 11.0 FL LAB HEMETOLOGY METHOD 07/10/2024 11:48 AM [facility] LAB NRBC 0.0 <1.0 % LAB HEMETOLOGY METHOD 07/10/2024 11:48 AM [facility] LAB NRBC Absolute 0.00 <0.10 K/mcL LAB HEMETOLOGY METHOD 07/10/2024 11:48 AM [facility] Neutrophils Relative 74.9 % LAB HEMETOLOGY METHOD 07/10/2024 11:48 AM [facility] Lymphocytes Relative 7.8 % LAB HEMETOLOGY METHOD 07/10/2024 11:48 AM [facility] Monocytes Relative 16.2 % LAB HEMETOLOGY METHOD 07/10/2024 11:48 AM [facility] Eosinophils Relative 0.0 % LAB HEMETOLOGY METHOD 07/10/2024 11:48 AM [facility] Basophils Relative 0.2 % LAB HEMETOLOGY METHOD 07/10/2024 11:48 AM [facility] Immature Granulocytes Relative 0.9 % LAB HEMETOLOGY METHOD 07/10/2024 11:48 AM [facility] Neutrophils Absolute 3.27 1.50 - 7.00 K/mcL LAB HEMETOLOGY METHOD 07/10/2024 11:48 AM [facility] Lymphocytes Absolute 0.34(L) 1.00 - 5.00 K/mcL LAB HEMETOLOGY METHOD 07/10/2024 11:48 AM [facility] Monocytes Absolute 0.71 0.20 - 1.00 K/mcL LAB HEMETOLOGY METHOD 07/10/2024 11:48 AM [facility] Eosinophils Absolute 0.00 0.00 - 0.50 K/mcL LAB HEMETOLOGY METHOD 07/10/2024 11:48 AM [facility] Basophils Absolute 0.01 0.00 - 0.20 K/mcL LAB HEMETOLOGY METHOD 07/10/2024 11:48 AM [facility] Immature Granulocytes Absolute 0.04(H) 0.00 - 0.03 K/mcL LAB HEMETOLOGY METHOD 07/10/2024 11:48 AM [facility] Blood Venous blood specimen / Unknown Venipuncture / Unknown 07/10/2024 6:12 AM EST 07/10/2024 9:46 AM EST Alize Go MD LAB BLOOD ORDERABLES Fin al Result Performing Organization Address [facility]/ZIP Co de Phone Number [facility] [address] [place] [address], * Uric acid (07/10/2024 6:12 AM EST) Uric Acid 6.3 3.7 - 9.2 mg/dL LAB CHEMISTRY METHOD 07/10/2024 11:29 AM EST [facility] Blood Venous blood specimen / Unknown Venipuncture / Unknown 07/10/2024 6:12 AM EST 07/10/2024 9:46 AM EST Alize Go MD LAB BLOOD ORDERABLES Fin al Result Performing Organization Address [facility]/ZIP Co de Phone Number [facility] [address] [place] [address], * (ABNORMAL) Basic metabolic panel (07/10/2024 6:12 AM EST) Pathologist [facility] Sodium 134 133 - 145 mmol/L LAB CHEMISTRY METHOD 07/10/2024 11:29 AM [facility] Potassium 4.1 3.5 - 5.5 mmol/L LAB CHEMISTRY METHOD 07/10/2024 11:29 AM [facility] Chloride 101 96 - 110 mmol/L LAB CHEMISTRY METHOD 07/10/2024 11:29 AM [facility] CO2 26 21 - 32 mmol/L LAB CHEMISTRY METHOD 07/10/2024 11:29 AM [facility] Anion Gap 7 3 - 11 LAB CHEMISTRY METHOD 07/10/2024 11:29 AM [facility] Glucose 93 70 - 100 mg/dL LAB CHEMISTRY METHOD 07/10/2024 11:29 AM [facility] BUN 33(H) 5 - 25 mg/dL LAB CHEMISTRY METHOD 07/10/2024 11:29 AM [facility] Creatinine 1.24 0.70 - 1.30 mg/dL LAB CHEMISTRY METHOD 07/10/2024 11:29 AM EST [facility] LAB eGFR 57(L) >=60 mL/min/1. 73m2 LAB CHEMISTRY METHOD 07/10/2024 11:29 AM EST [facility] LAB Comment:Calculation based on the??Chronic Kidney Disease Epidemiology Collaboration (CKD-EPI) equation refit??without adjustment for race. BUN/Creatinine Ratio 26.6 LAB CHEMISTRY METHOD 07/10/2024 11:29 AM EST [facility] Calcium 8.8 8.5 - 10.5 mg/dL LAB CHEMISTRY METHOD 07/10/2024 11:29 AM [facility] LAB Blood Venous blood specimen / Unknown Venipuncture / Unknown 07/10/2024 6:12 AM EST 07/10/2024 9:46 AM EST us Ailze Go MD LAB BLOOD ORDERABLES Fin al Result [facility] [address] [place] [address], documented in this encounter Visit Diagnoses Diagnosis Acute cough documented in this encounter Care Teams Making Department Preparer Relationship Specialty Start Date End Date Alize Go MD [address] [place] [id number] PCP - General Family Medicine 03/22/24 documented as of this encounter
--- OUTSIDE RECORDS SUMMARY | 2024-09-29 19:18 | XMS_ITS | Encounter Summary ---
Author Organization [employer] Address [address] [place] [address] Care Team Providers Care Gasoline Truck Operator Name Role Phone Alize Go MD Primary Care Provider + Encounter Details Date Type Department Care Team (Late st Contact Info) Description 03/21/2024 Lab Requisition [facility] - Main Lab [address] [place] [address] Alize Go MD 819 [facility] 1 [place], [place] [phone] Heart failure, unspecified (CMS/HCC V24, CMS/HCC V28) Social History Tobacco Use Types Packs/Day Years [...] Diagnosis Comments CBC WITH AUTO DIFFERENTIAL Routine 03/21/2024 6:48 AM EST Heart failure, unspecified (CMS/HCC) CBC AND DIFFERENTIAL Routine 03/21/2024 6:48 AM EST Heart failure, unspecified (CMS/HCC) BASIC METABOLIC PANEL Routine 03/21/2024 6:48 AM EST Heart failure, unspecified (CMS/HCC) documented in this encounter Results * (ABNORMAL) CBC auto differential (03/21/2024 6:48 AM EST) WBC 9.8 4.8 - 10.8 K/[facility] LAB HEMETOLOGY METHOD 03/21/2024 12:17 PM [facility] LAB RBC 3.70(L) 4.50 - 5.50 M/mcL LAB HEMETOLOGY METHOD 03/21/2024 12:17 PM [facility] LAB Hemoglobin 10.8(L) 13.5 - 17.5 g/dL LAB HEMETOLOGY METHOD 03/21/2024 12:17 PM [facility] LAB Hematocrit 34.8(L) 42.0 - 54.0 % LAB HEMETOLOGY METHOD 03/21/2024 12:17 PM [facility] LAB MCV 93.0 79.0 - 98.0 FL LAB HEMETOLOGY METHOD 03/21/2024 12:17 PM [facility] LAB MCH 28.9 27.0 - 32.0 pcg LAB HEMETOLOGY METHOD 03/21/2024 12:17 PM [facility] LAB MCHC 31.0(L) 32.0 - 37.0 g/dL LAB HEMETOLOGY METHOD 03/21/2024 12:17 PM [facility] LAB RDW 17.6(H) 11.0 - 15.0 % LAB HEMETOLOGY METHOD 03/21/2024 12:17 PM [facility] LAB Platelets 165 130 - 400 K/mcL LAB HEMETOLOGY METHOD 03/21/2024 12:17 PM [facility] LAB MPV 11.9(H) 7.0 - 11.0 FL LAB HEMETOLOGY METHOD 03/21/2024 12:17 PM [facility] LAB NRBC 0.0 <1.0 % LAB HEMETOLOGY METHOD 03/21/2024 12:17 PM [facility] LAB NRBC Absolute 0.00 <0.10 K/mcL LAB HEMETOLOGY METHOD 03/21/2024 12:17 PM [facility] LAB Neutrophils Relative 81.8 % LAB HEMETOLOGY METHOD 03/21/2024 12:17 PM [facility] LAB Lymphocytes Relative 6.0 % LAB HEMETOLOGY METHOD 03/21/2024 12:17 PM [facility] LAB Monocytes Relative 10.7 % LAB HEMETOLOGY METHOD 03/21/2024 12:17 PM [facility] LAB Eosinophils Relative 0.6 % LAB HEMETOLOGY METHOD 03/21/2024 12:17 PM [facility] Basophils Relative 0.2 % LAB HEMETOLOGY METHOD 03/21/2024 12:17 PM [facility] LAB Immature Granulocytes Relative 0.7 % LAB HEMETOLOGY METHOD 03/21/2024 12:17 PM [facility] LAB Neutrophils Absolute 8.04(H) 1.50 - 7.00 K/mcL LAB HEMETOLOGY METHOD 03/21/2024 12:17 PM [facility] Lymphocytes Absolute 0.59(L) 1.00 - 5.00 K/mcL LAB HEMETOLOGY METHOD 03/21/2024 12:17 PM [facility] LAB Monocytes Absolute 1.05(H) 0.20 - 1.00 K/mcL LAB HEMETOLOGY METHOD 03/21/2024 12:17 PM [facility] LAB Eosinophils Absolute 0.06 0.00 - 0.50 K/mcL LAB HEMETOLOGY METHOD 03/21/2024 12:17 PM [facility] LAB Basophils Absolute 0.02 0.00 - 0.20 K/mcL LAB HEMETOLOGY METHOD 03/21/2024 12:17 PM [facility] LAB Immature Granulocytes Absolute 0.07(H) 0.00 - 0.03 K/mcL LAB HEMETOLOGY METHOD 03/21/2024 12:17 PM [facility] Blood Venous blood specimen / Unknown Venipuncture / Unknown 03/21/2024 6:48 AM EST 03/21/2024 11:06 AM EST Alize Go MD LAB BLOOD ORDERABLES Fin al Result [facility] [address] [place] [address], * (ABNORMAL) Basic metabolic panel (03/21/2024 6:48 AM EST) Sodium 140 133 - 145 mmol/L LAB CHEMISTRY METHOD 03/21/2024 12:53 PM [facility] LAB Potassium 3.9 3.5 - 5.5 mmol/L LAB CHEMISTRY METHOD 03/21/2024 12:53 PM [facility] LAB Chloride 107 96 - 110 mmol/L LAB CHEMISTRY METHOD 03/21/2024 12:53 PM [facility] CO2 27 21 - 32 mmol/L LAB CHEMISTRY METHOD 03/21/2024 12:53 PM [facility] Anion Gap 6 3 - 11 LAB CHEMISTRY METHOD 03/21/2024 12:53 PM [facility] Glucose 84 70 - 100 mg/dL LAB CHEMISTRY METHOD 03/21/2024 12:53 PM [facility] BUN 31(H) 5 - 25 mg/dL LAB CHEMISTRY METHOD 03/21/2024 12:53 PM [facility] LAB Creatinine 1.11 0.70 - 1.30 mg/dL LAB CHEMISTRY METHOD 03/21/2024 12:53 PM [facility] LAB eGFR 65 >=60 mL/min/1. 73m2 LAB CHEMISTRY METHOD 03/21/2024 12:53 PM [facility] LAB Comment:Calculation based on the??Chronic Kidney Disease Epidemiology Collaboration (CKD-EPI) equation refit??without adjustment for race. BUN/Creatinine Ratio 27.9 LAB CHEMISTRY METHOD 03/21/2024 12:53 PM [facility] Calcium 8.5 8.5 - 10.5 mg/dL LAB CHEMISTRY METHOD 03/21/2024 12:53 PM EST [facility] Blood Venous blood specimen / Unknown Venipuncture / Unknown 03/21/2024 6:48 AM EST 03/21/2024 11:06 AM EST Alize Go MD LAB BLOOD ORDERABLES Fin al Result [facility] [address] [place] [address], documented in this encounter Visit Diagnoses Diagnosis Heart failure, unspecified (CMS/HCC V24, CMS/HCC V28) Heart failure, unspecified documented in this encounter Care Teams Gasoline Truck Operator Relationship Specialty Start Date End Date Alize Go MD [address] [place] [id number] PCP - General Family Medicine 03/22/24 documented as of this encounter
--- OUTSIDE RECORDS SUMMARY | 2024-09-29 19:18 | XMS_ITS | Encounter Summary ---
Author Organization [employer] Address [address] [place] [address] Care Team Providers Care Front End Technician Name Role Phone Alize Go MD Primary Care Provider + Encounter Details Date Type Department Care Team (Late st Contact Info) Description 06/11/2024 Lab Requisition [facility] - Main Lab 299 [facility] [place] [address] Alize Go MD [address] [phone] Other senior living (current) drug therapy; Weakness Social History Tobacco Use Types Packs/Day [...] Associated Diagnosis Comments COMPLETE BLOOD COUNT Routine 06/11/2024 6:27 AM EST Other manager intermediate (current) drug therapy Weakness URIC ACID Routine 06/11/2024 6:27 AM EST Other manager intermediate (current) drug therapy Weakness BASIC METABOLIC PANEL Routine 06/11/2024 6:27 AM EST Other senior living (current) drug therapy Weakness documented in this encounter Results * Uric acid (06/11/2024 6:27 AM EST) Uric Acid 4.7 3.7 - 9.2 mg/dL LAB CHEMISTRY METHOD 06/11/2024 10:19 AM EST [facility] Blood Venous blood specimen / Unknown Venipuncture / Unknown 06/11/2024 6:27 AM EST 06/11/2024 9:11 AM EST us Alize Go MD LAB BLOOD ORDERABLES Fin al Result [facility] [address] [place] [address], [place] [phone] * (ABNORMAL) Basic metabolic panel (06/11/2024 6:27 AM EST) [facility] Sodium 137 133 - 145 mmol/L LAB CHEMISTRY METHOD 06/11/2024 10:19 AM [facility] LAB Potassium 4.1 3.5 - 5.5 mmol/L LAB CHEMISTRY METHOD 06/11/2024 10:19 AM [facility] LAB Chloride 104 96 - 110 mmol/L LAB CHEMISTRY METHOD 06/11/2024 10:19 AM [facility] LAB CO2 27 21 - 32 mmol/L LAB CHEMISTRY METHOD 06/11/2024 10:19 AM [facility] LAB Anion Gap 6 3 - 11 LAB CHEMISTRY METHOD 06/11/2024 10:19 AM [facility] LAB Glucose 99 70 - 100 mg/dL LAB CHEMISTRY METHOD 06/11/2024 10:19 AM [facility] BUN 35(H) 5 - 25 mg/dL LAB CHEMISTRY METHOD 06/11/2024 10:19 AM [facility] LAB Creatinine 1.31(H) 0.70 - 1.30 mg/dL LAB CHEMISTRY METHOD 06/11/2024 10:19 AM [facility] LAB eGFR 53(L) >=60 mL/min/1. 73m2 LAB CHEMISTRY METHOD 06/11/2024 10:19 AM [facility] LAB Comment:Calculation based on the??Chronic Kidney Disease Epidemiology Collaboration (CKD-EPI) equation refit??without adjustment for race. BUN/Creatinine Ratio 26.7 LAB CHEMISTRY METHOD 06/11/2024 10:19 AM [facility] LAB Calcium 8.4(L) 8.5 - 10.5 mg/dL LAB CHEMISTRY METHOD 06/11/2024 10:19 AM [facility] LAB Blood Venous blood specimen / Unknown Venipuncture / Unknown 06/11/2024 6:27 AM EST 06/11/2024 9:11 AM EST us Alize Go MD LAB BLOOD ORDERABLES Fin al Result [facility] [address] [place] [address], * (ABNORMAL) Complete blood count (06/11/2024 6:27 AM EST) WBC 7.4 4.8 - 10.8 K/mcL LAB HEMETOLOGY METHOD 06/11/2024 10:16 AM [facility] LAB RBC 4.00(L) 4.50 - 5.50 M/[facility] LAB HEMETOLOGY METHOD 06/11/2024 10:16 AM [facility] LAB Hemoglobin 12.1(L) 13.5 - 17.5 g/dL LAB HEMETOLOGY METHOD 06/11/2024 10:16 AM [facility] LAB Hematocrit 36.7(L) 42.0 - 54.0 % LAB HEMETOLOGY METHOD 06/11/2024 10:16 AM [facility] LAB MCV 92.7 79.0 - 98.0 FL LAB HEMETOLOGY METHOD 06/11/2024 10:16 AM [facility] LAB MCH 30.6 27.0 - 32.0 pcg LAB HEMETOLOGY METHOD 06/11/2024 10:16 AM [facility] LAB MCHC 33.0 32.0 - 37.0 g/dL LAB HEMETOLOGY METHOD 06/11/2024 10:16 AM [facility] LAB RDW 17.1(H) 11.0 - 15.0 % LAB HEMETOLOGY METHOD 06/11/2024 10:16 AM EST [facility] LAB Platelets 143 130 - 400 K/mcL LAB HEMETOLOGY METHOD 06/11/2024 10:16 AM EST [facility] LAB MPV 12.1(H) 7.0 - 11.0 FL LAB HEMETOLOGY METHOD 06/11/2024 10:16 AM EST [facility] LAB NRBC 0.0 <1.0 % LAB HEMETOLOGY METHOD 06/11/2024 10:16 AM EST [facility] LAB NRBC Absolute 0.00 <0.10 K/mcL LAB HEMETOLOGY METHOD 06/11/2024 10:16 AM EST [facility] Blood Venous blood specimen / Unknown Venipuncture / Unknown 06/11/2024 6:27 AM EST 06/11/2024 9:11 AM EST us Alize Go MD LAB BLOOD ORDERABLES Fin al Result [facility] [address] [place] [address], documented in this encounter Visit Diagnoses Diagnosis Other manager intermediate (current) drug therapy Weakness Other malaise and fatigue documented in this encounter Care Teams Front End Technician Relationship Specialty Start Date End Date Alize Go MD [address] [phone] PCP - General Family Medicine 03/22/24 documented as of this encounter
--- OUTSIDE RECORDS SUMMARY | 2024-09-29 19:18 | XMS_ITS | Encounter Summary ---
Author Organization [employer] [facility] Address [address] [place] [address] Care Team Providers Care Liquor Department Manager Name Role Phone Alize Go MD Primary Care Provider + Encounter Details Date Type Department Care Team (Late st Contact Info) Description 07/11/2024 Lab Requisition [facility] - Main Lab 299 [facility] [place] [address] Alize Go MD [address] [phone] Weakness Social History Tobacco Use Types Packs/Day [...] Associated Diagnosis Comments COMPLETE BLOOD COUNT Routine 07/12/2024 6:14 AM EST Weakness BASIC METABOLIC PANEL Routine 07/12/2024 6:14 AM EST Weakness documented in this encounter Results * (ABNORMAL) Basic metabolic panel (07/12/2024 6:14 AM EST) Sodium 137 133 - 145 mmol/L LAB CHEMISTRY METHOD 07/12/2024 10:28 AM EST [facility] LAB Potassium 4.3 3.5 - 5.5 mmol/L LAB CHEMISTRY METHOD 07/12/2024 10:28 AM EST [facility] LAB Chloride 103 96 - 110 mmol/L LAB CHEMISTRY METHOD 07/12/2024 10:28 AM EST [facility] LAB CO2 26 21 - 32 mmol/L LAB CHEMISTRY METHOD 07/12/2024 10:28 AM [facility] LAB Anion Gap 8 3 - 11 LAB CHEMISTRY METHOD 07/12/2024 10:28 AM [facility] LAB Glucose 90 70 - 100 mg/dL LAB CHEMISTRY METHOD 07/12/2024 10:28 AM [facility] LAB BUN 34(H) 5 - 25 mg/dL LAB CHEMISTRY METHOD 07/12/2024 10:28 AM [facility] LAB Creatinine 1.33(H) 0.70 - 1.30 mg/dL LAB CHEMISTRY METHOD 07/12/2024 10:28 AM [facility] LAB eGFR 52(L) >=60 mL/min/1. 73m2 LAB CHEMISTRY METHOD 07/12/2024 10:28 AM [facility] LAB Comment:Calculation based on the??Chronic Kidney Disease Epidemiology Collaboration (CKD-EPI) equation refit??without adjustment for race. BUN/Creatinine Ratio 25.6 LAB CHEMISTRY METHOD 07/12/2024 10:28 AM [facility] LAB Calcium 8.6 8.5 - 10.5 mg/dL LAB CHEMISTRY METHOD 07/12/2024 10:28 AM [facility] LAB Blood Venous blood specimen / Unknown Venipuncture / Unknown 07/12/2024 6:14 AM EST 07/12/2024 9:36 AM EST us Alize oG MD LAB BLOOD ORDERABLES Fin al Result [facility] [address] [place] [address], * (ABNORMAL) Complete blood count (07/12/2024 6:14 AM EST) WBC 4.1(L) 4.8 - 10.8 K/mcL LAB HEMETOLOGY METHOD 07/12/2024 10:10 AM [facility] LAB RBC 4.20(L) 4.50 - 5.50 M/mcL LAB HEMETOLOGY METHOD 07/12/2024 10:10 AM [facility] LAB Hemoglobin 13.1(L) 13.5 - 17.5 g/dL LAB HEMETOLOGY METHOD 07/12/2024 10:10 AM [facility] LAB Hematocrit 40.0(L) 42.0 - 54.0 % LAB HEMETOLOGY METHOD 07/12/2024 10:10 AM [facility] LAB MCV 94.6 79.0 - 98.0 FL LAB HEMETOLOGY METHOD 07/12/2024 10:10 AM [facility] LAB MCH 31.0 27.0 - 32.0 pcg LAB HEMETOLOGY METHOD 07/12/2024 10:10 AM [facility] LAB MCHC 32.8 32.0 - 37.0 g/dL LAB HEMETOLOGY METHOD 07/12/2024 10:10 AM [facility] LAB RDW 16.9(H) 11.0 - 15.0 % LAB HEMETOLOGY METHOD 07/12/2024 10:10 AM [facility] LAB Platelets 135 130 - 400 K/mcL LAB HEMETOLOGY METHOD 07/12/2024 10:10 AM [facility] LAB MPV 11.5(H) 7.0 - 11.0 FL LAB HEMETOLOGY METHOD 07/12/2024 10:10 AM [facility] LAB NRBC 0.0 <1.0 % LAB HEMETOLOGY METHOD 07/12/2024 10:10 AM [facility] LAB NRBC Absolute 0.00 <0.10 K/mcL LAB HEMETOLOGY METHOD 07/12/2024 10:10 AM [facility] LAB Blood Venous blood specimen / Unknown Venipuncture / Unknown 07/12/2024 6:14 AM EST 07/12/2024 9:36 AM EST us Alize Go MD LAB BLOOD ORDERABLES Fin al Result [facility] [address] [place] [address], documented in this encounter Visit Diagnoses Diagnosis Weakness Other malaise and fatigue documented in this encounter Care Teams Liquor Department Manager Relationship Specialty Start Date End Date Alize Go MD [address] [phone] PCP - General Family Medicine 03/22/24 documented as of this encounter
--- OUTSIDE RECORDS SUMMARY | 2024-09-29 19:18 | XMS_ITS | Encounter Summary ---
Author Organization [employer] Address [address] [place] [address] Care Team Providers Care Malt Liquors Sales Supervisor Name Role Phone Alize Go MD Primary Care Provider + Encounter Details Date Type Department Care Team (Late st Contact Info) Description 07/04/[address] [facility] - Main Lab [address] [facility] [place] [address] Alize Go MD 819 [facility] 1 [place], [place] [phone] Urinary tract infection, site not specified Social History Tobacco Use Types Packs/Day Years [...] EST Urinary tract infection, site not specified documented in this encounter Results * Culture urine (07/04/2024 7:00 AM EST) Culture, Urine 10,000-49,000 CFU/mL Mixed bacterial morphotypes present suggestive of possible contamination during collection. Suggest appropriate recollection if clinically indicated. 07/05/2024 9:38 AM [facility] Urine Urine specimen obtained by clean catch procedure / Unknown Non-blood Collection / Unknown 07/04/2024 7:00 AM EST 07/04/2024 12:40 PM EST Alize Go MD LAB MICROBIOLOGY - GENER AL ORDERABLES Final Result [facility] [address] [place] [address], [place] [phone] * (ABNORMAL) Urinalysis with reflex microscopic and culture (07/04/2024 7:00 AM EST) Specific [place] Urine 1.017 1.003 - 1.030 LAB URINALYSIS - AUTOMATED METHOD 07/04/2024 12:40 PM [facility] pH, Urine 6.5 5.0 - 8.0 pH LAB URINALYSIS - AUTOMATED METHOD 07/04/2024 12:40 PM [facility] Leukocytes, Urine Small(A) Negative LAB URINALYSIS - AUTOMATED METHOD 07/04/2024 12:40 PM [facility] Nitrite, Urine Negative Negative LAB URINALYSIS - AUTOMATED METHOD 07/04/2024 12:40 PM [facility] Protein, Urine Negative <=Trace mg/dL LAB URINALYSIS - AUTOMATED METHOD 07/04/2024 12:40 PM [facility] Glucose, Urine Negative Negative mg/dL LAB URINALYSIS - AUTOMATED METHOD 07/04/2024 12:40 PM [facility] Ketones, Urine Negative Negative mg/dL LAB URINALYSIS - AUTOMATED METHOD 07/04/2024 12:40 PM [facility] Urobilinogen, Urine 1.0 0.2 - 1.0 mg/dL LAB URINALYSIS - AUTOMATED METHOD 07/04/2024 12:40 PM [facility] Bilirubin, Urine Negative Negative LAB URINALYSIS - AUTOMATED METHOD 07/04/2024 12:40 PM [facility] Blood, Urine Negative Negative LAB URINALYSIS - AUTOMATED METHOD 07/04/2024 12:40 PM [facility] RBC, Urine 1.0 0 - 4 /HPF LAB URINALYSIS - AUTOMATED METHOD 07/04/2024 12:40 PM [facility] WBC, Urine 1.0 0 - 4 /HPF LAB URINALYSIS - AUTOMATED METHOD 07/04/2024 12:40 PM [facility] Squamous Epithelial, Urine 40 0 - 60 /LPF LAB URINALYSIS - AUTOMATED METHOD 07/04/2024 12:40 PM [facility] Bacteria, Urine Negative Negative /HPF LAB URINALYSIS - AUTOMATED METHOD 07/04/2024 12:40 PM [facility] Hyaline Casts, Urine 0.8 0 - 3 /LPF LAB URINALYSIS - AUTOMATED METHOD 07/04/2024 12:40 PM [facility] Urine Urine specimen obtained by clean catch procedure / Unknown Non-blood Collection / Unknown 07/04/2024 7:00 AM EST 07/04/2024 11:10 AM EST Alize Go MD LAB URINE ORDERABLES Fin al Result [facility] [address] [place] [address], * Freire urine culture tube (07/04/2024 7:00 AM EST) Extra Tube Hold for add-ons. 07/04/2024 1:01 PM [facility] Comment:Auto resulted. Urine Urine specimen obtained by clean catch procedure / Unknown Non-blood Collection / Unknown 07/04/2024 7:00 AM EST 07/04/2024 11:10 AM EST us Alize Go MD LAB URINE ORDERABLES Fin al Result [facility] [address] [place] [address], documented in this encounter Visit Diagnoses Diagnosis Urinary tract infection, site not specified documented in this encounter Care Teams Malt Liquors Sales Supervisor Relationship Specialty Start Date End Date Alize Go MD [address] [address] PCP - General Family Medicine 03/22/24 documented as of this encounter
[2024-09-29 19:31] LABS: Alanine Aminotransferase 15 U/L (0-40); Alkaline Phosphatase 70 U/L (39-117); Anion Gap 12 (12-20); Aspartate Amino Transferase 18 U/L (5-37); Blood Urea Nitrogen 35 mg/dL (9-16); Calcium 8.9 mg/dL (8.4-10.2); Carbon Dioxide 22 mmol/L (22-29); Chloride 111 mmol/L (96-108); Creatinine Clr Calc Pharmacy 47.3; Estimated Glomerular Filt Rate 58; Glucose Random 138 mg/dL (60-115); Potassium 4.1 mmol/L (3.3-5.1); Sodium 141 mmol/L (135-145)
[2024-09-29 19:38] LABS: B Type Natriuretic Peptide 3934 pg/mL (<100); Troponin-I High Sensitivity 62.7 ng/L (<3.5-35.0)
[2024-09-29 19:54] LABS: Influenza A PCR NEGATIVE (Negative); Influenza B PCR NEGATIVE (Negative); Resp Syncy Virus RNA Qual PCR NEGATIVE (Negative); SARS COV2 PCR INHOUSE NEGATIVE (Negative)
[2024-09-29 21:04] VITALS: BP 150/87; PULSE 69; RESP 20; O2SAT 97
[2024-09-29 21:40] LABS: Troponin-I High Sensitivity 64.2 ng/L (<3.5-35.0)
--- NOTE | 2024-09-29 23:16 | ED_ITS ---
HPI - General Adult General Chief complaint: General Medical Stated complaint: sob lethargic Time Seen by Provider: 09/29/24 22:05 Source: patient, family (daughter), RN notes reviewed and old records reviewed Mode of arrival: EMS Limitations: no limitations History of Present Illness ED Provider: Pinky HPI narrative: 84-year-old male past medical history significant for atrial fibrillation on Eliquis, grave's disease, failure to thrive, congestive heart failure, mild cognitive impairment, history of alcohol dependence, gout, BPH pericardial effusion presents for evaluation of altered mental status. Per the patient's daughter who seems well involved in the patient's care, the patient has had increasing weakness and confusion for the last week. She suspects the patient had a fall at his long-term care facility about a week ago due to bruising noticed mostly to his right arm but also left leg and torso. 1 week ago the patient was complaining of a headache but could not tell her how he hurt his head When the daughter discussed with nursing facility, they could not find any documentation that he fell, however several staff members reported to the daughter that they found the patient on the ground Ever since then, the patient has been occasionally leaning to the right while seated, he has not had any known falls since then And per the daughter he has had increased confusion , the patient is answering questions appropriately in the daughter reports that this is the most alert he has been in the last week Of note, the facility also found the patient to have an oxygen saturation dropping down you 78% while he was sitting in a wheelchair He does have a history of COPD but he is not on oxygen at baseline 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 in July due to decreased oral intake and episodes of dehydration Related Data Home Medications ?Medication ?Instructions ?Recorded ?Confirmed allopurinol 300 mg tablet 300 mg PO DAILY 03/01/23 01/20/24 omeprazole 20 mg capsule,delayed 20 mg PO DAILY@0630 03/01/23 01/20/24 release sertraline 100 mg tablet 150 mg PO DAILY 12/22/23 01/20/24 acetaminophen 325 mg tablet 650 mg PO Q4H PRN Pain (Scale 01/20/24 01/20/24 Score 1-3) Previous Rx's ?Medication ?Instructions ?Recorded apixaban 5 mg tablet (Eliquis) 5 mg PO BID #60 tabs 12/27/23 digoxin 125 mcg (0.125 mg) tablet 0.125 mg PO DAILY #30 tabs 12/27/23 furosemide 20 mg tablet (Lasix) 20 mg PO BID #60 tabs 12/27/23 valsartan 40 mg tablet 40 mg PO BID #60 tabs 12/27/23 amoxicillin 875 mg-potassium 1 tab PO Q12H #10 tabs 01/24/24 clavulanate 125 mg tablet megestrol 400 mg/10 mL (10 mL) 400 mg (10 mL) PO DAILY #0 mL 01/24/24 oral suspension metoprolol succinate 25 mg 25 mg PO DAILY #0 tabs 01/24/24 tablet,extended release 24 hr potassium chloride 20 mEq 20 meq PO DAILY #90 tabs 01/24/24 tablet,extended release Allergies Allergy/AdvReac Type Severity Reaction Status Date / Time amlodipine AdvReac Mild leg Verified 09/29/24 18:52 swelling Review of Systems 2 Constitutional: Constitutional: Denies body ache(s), Denies chills, Reports fatigue, Denies fever(s), Reports frequent falls, Reports headache(s), Reports poor appetite and Reports weakness Eyes: Eyes: Denies blurry vision ENT: Denies vertigo, Denies dizziness and Reports headache(s) Cardiovascular: Cardiovascular: Denies chest pain and Reports dyspnea Respiratory: Respiratory: Reports cough and Reports dyspnea Gastrointestinal: Gastrointestinal: Reports abdominal pain, Denies hematochezia, Denies GI cramping, Denies nausea and Denies vomiting Musculoskeletal: Musculoskeletal: Denies back pain Integumentary/Breasts: Skin/Breast: Denies rash and Reports unusual bruising Neurologic: Reports confusion, Denies vertigo, Denies dizziness, Reports frequent falls, Reports headache(s) and Reports weakness Psychiatric: Psychiatric: Reports confusion and Denies depression Endocrine: Endocrine: Reports fatigue PMFSH Past Medical History Medical History Acute pericardial effusion COPD (chronic obstructive pulmonary disease) CHF (congestive heart failure) Graves disease Hypertension Vertigo Dizziness Surgical History No pertinent past surgical history H/O endoscopy H/O colonoscopy Social History Social History Household Members: None Housing: House Do you presently have visiting nurse or other home services: Yes Alcohol intake: former Patient Tobacco Use Status: Former Tobacco user Tobacco use type: Cigarette Years Smoked: 30 Smoked in Last 30 Days: No e-Cigarette/Vaping Use: Never Used Second Hand Smoke Exposure: No Use of substances other than those prescribed or required for medical reasons: No Advance Directives: Yes Advance Directives on File: Yes Advance Directives Date on File: 03/09/23 service: Yes Physical Exam ED Vital Signs: Vital Signs - 24 hr 09/29/24 18:49 09/29/24 21:04 09/29/24 23:18 Temperature 98.1 F Pulse Rate 64 69 Respiratory Rate 18 20 Blood Pressure 188/76 H 150/87 H 150/85 H Pulse Oximetry 97 97 Oxygen Delivery Method Nasal Cannula Nasal Cannula Oxygen Flow Rate 2 09/29/24 23:20 Temperature Pulse Rate Respiratory Rate 22 H Blood Pressure Pulse Oximetry 87 L Oxygen Delivery Method Room Air Oxygen Flow Rate BMI result Body Mass Index 30.6 Const General: confusion Nutritional Appearance: well nourished Orientation/consciousness: confusion HENMT Head: Yes normocephalic and Yes atraumatic Eyes Eyelids: Yes eyelids normal Conjunctivae: conjunctivae normal Sclerae: sclerae normal Corneas: corneas normal Pupils: Equal, round and reactive pupils present EOM: EOMs intact bilaterally Resp Effort & Inspection: normal respiratory effort, able to speak in complete sentences and not labored GI Inspection: No distended Palpation (GI): Soft to palpation, not firm, nontender, no guarding and not rigid Skin Other: Several areas of ecchymosis most prominent to the right upper extremity and right thigh. General skin exam: elasticity normal Neuro General: confusion Cranial nerves: Yes Equal, round and reactive pupils present and Yes Bilaterally intact EOM present Cognition (Neuro): normal cognition Extrem Other: Moving all extremities well without any obvious deformities Medications Administered Discontinued Medications Generic Name Dose Route Start Last Admin Trade Name Freq PRN Reason Stop Dose Admin Furosemide 40 mg 09/29/24 23:14 09/29/24 23:18 Furosemide 40 Mg/4 Ml Vial IVPUSH 09/29/24 23:15 40 mg STAT STA Administration Protocol Medical Decision Making Medical Decision Making MDM Narrative: 84-year-old male past medical history as above presents for evaluation of shortness of breath and increasing confusion over the last week. The patient is alert and oriented, answering my questions appropriately. However the daughter reports that this is the 1st time in the last week he has been answering questions appropriately. He has complained of the headache about a week ago he complains of abdominal pain earlier today. They are his oxygen saturation on room air has been primarily around 94% but did drop to 87% on 3 separate occasions while I was in the room. He does have bilateral lower extremity edema and this is likely due to decreasing his Lasix in the setting of CHF. Chest x- ray is clear, no evidence of pneumonia. He has no leukocytosis or significant anemia. He does have a mild left shift which seems consistent with his baseline. Patient's troponin was 62.7 and then a repeat troponin 2 hours later was 64.2, essentially flat. BNP is 3934 which is significantly higher than it has been in the past again, consistent with fluid overload and CHF. I ordered a dose of Lasix 40 mg IV. I ordered a CT scan of the head given the suspected fall while on [facility] with new altered mental status, CT chest and abdomen due to the fall, it is also a history of pericardial effusion and the patient was complaining of abdominal pain earlier today. A urinalysis is pending Differential Diagnosis Differential Diagnoses: The differential diagnosis associated with the presentation includes Encephalopathy Intracranial hemorrhage Hypoxia CHF UTI Admission/Observation Consideration of admission/observation: Escalation of care including admission/observation considered Consult Healthcare Provider Management of the patient was discussed with: Hospitalist Lab Data MDM Lab Attestation statement: I reviewed the patient's lab results. As above 09/29/24 19:05 09/29/24 19:05 Labs: Lab Results 09/29/24 09/29/24 09/29/24 Range/Units 19:05 19:10 21:04 WBC 9.9 (4.8-10.8) X10*3/uL RBC 3.87 L (4.60-5.80) X10*6/uL Hgb 12.5 L D (14.0-18.0) g/dl Hct 37.2 L (42.0-52.0) % MCV 96.1 (80.0-98.0) fL MCH 32.3 (27.0-33.0) pg MCHC 33.6 (31.0-36.0) g/dl RDW 15.3 (11.0-16.0) % Plt Count 145 L D (160-400) X10*3/uL MPV 11.4 (9.4-12.4) fL Immature Gran % (Auto) 0.6 H (0.0-0.4) % Neut % (Auto) 80.9 H (45-73) % Lymph % (Auto) 6.9 L (20-40) % [place] % (Auto) 11.1 H (2-11) % Eos % (Auto) 0.3 (0-4) % Baso % (Auto) 0.2 (0-2) % Lymph # (Auto) 0.7 L (1.2-4.9) X10*3/uL [place] # (Auto) 1.1 (0.1-1.2) X10*3/uL Eos # (Auto) 0.0 (0.0-0.4) X10*3/uL Baso # (Auto) 0.0 (0.0-0.2) X10*3/uL Abs Immat Gran (auto) 0.06 H (0.00-0.03) X10*3/uL Absolute Neuts (auto) 8.0 (2.0-8.3) x10*3/uL Absolute Nucleated RBC 0.000 (0.0-0.012) X10*3/uL Nucleated RBC % (auto) 0.0 (0.0-0.2) /100WBC Sodium 141 (135-145) mmol/L Potassium 4.1 D (3.3-5.1) mmol/L Chloride 111 H (96-108) mmol/L Carbon Dioxide 22 (22-29) mmol/L Anion Gap 12 (12-20) BUN 35 H (9-16) mg/dL Creatinine 1.19 (0.5-1.4) mg/dL Estim Creat Clear Calc 47.3 Estimated GFR 58 Random Glucose 138 H (60-115) mg/dL Calcium 8.9 (8.4-10.2) mg/dL Total Bilirubin 1.0 (0.0-1.0) mg/dL AST 18 (5-37) U/L ALT 15 (0-40) U/L Alkaline Phosphatase 70 (39-117) U/L Troponin I High Sens 62.7 H D 64.2 H (<3.5-35.0) ng/L B-Natriuretic Peptide 3934 H (<100) pg/mL Total Protein 6.0 L (6.5-8.0) g/dL Albumin 4.0 (3.5-5.0) g/dL Influenza Type A (PCR) NEGATIVE (Negative) Influenza Type B (PCR) NEGATIVE (Negative) RSV RNA Qual (PCR) NEGATIVE (Negative) SARS-CoV-2 RNA (RT-PCR) NEGATIVE (Negative) Independent Interpretation I performed an independent interpretation of an: EKG (AFib with a rate of 59 beats minute.) Discharge Plan Discharge Clinical Impression: CHF (congestive heart failure), Encephalopathy Patient Disposition: Admitted As Inpatient
[2024-09-29 23:18] VITALS: BP 150/85
[2024-09-29] MEDS: Furosemide 40 MG/4 ML VIAL IVPUSH (23:18)
[2024-09-29 23:20] VITALS: RESP 22; O2SAT 87
--- NOTE | 2024-09-29 23:41 | PM.IMHP ---
History of Present Illness Date of Service: 09/29/24 Attending physician on admission: Belinda Fu Chief Complaint: AMS pt is an 84 yo male with a pmhx significant for dementia, HFrEF (40-45% 01/2024), FTT, HTN, paroxysmal a fib on eliquis, graves disesase, vertigo, and stage 1 COPD, who presented to the ED due to worsening AMS and SOB x1 week. The pt is lethargic and history is limited as he has a hard time staying awake. When the pt was examined his O2 sats were in the mid 90s without supplemental oxygen. he appeared lethargic, but comfortable. he denies chest pain and states his SOB has improved. he states he was having orthopnea previously. he denies any urinary frequency, urgency, or dysuria. he also reports a recent fall, but denies any hip or leg pain. he denies any concerns currently. Per the ED provider's note, Per the patient's daughter who seems well involved in the patient's care, the patient has had increasing weakness and confusion for the last week.She suspects the patient had a fall at his long-term care facility about a week ago due to bruising noticed mostly to his right arm but also left leg and torso. 1 week ago the patient was complaining of a headache but could not tell her how he hurt his headWhen the daughter discussed with nursing facility, they could not find any documentation that he fell, however several staff members reported to the daughter that they found the patient on the ground Ever since then, the patient has been occasionally leaning to the right while seated, he has not had any known falls since then. And per the daughter he has had increased confusion, the patient is answering questions appropriately in the daughter reports that this is the most alert he has been in the last week. Of note, the facility also found the patient to have an oxygen saturation dropping down you 78% while he was sitting in a wheelchair. He does have a history of COPD but he is not on oxygen at baseline. 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 in July due to decreased oral intake and episodes of dehydration Review of Systems Review of Systems: limited due to lethargy, pt dozing off Constitutional: Constitutional: Denies body ache(s), Denies chills, Reports fatigue, Denies fever(s) and Denies headache(s) Eyes: Eyes: Denies change in vision and Denies photophobia ENT: Denies headache(s), Denies nasal congestion, Denies nasal discharge and Denies sore throat Cardiovascular: Cardiovascular: Denies rapid heart rate, Reports leg edema, Denies lightheadedness and Reports dyspnea Respiratory: Respiratory: Denies chest congestion, Denies cough, Reports dyspnea and Denies wheezing Gastrointestinal: Gastrointestinal: Denies abdominal pain, Denies diarrhea, Denies nausea and Denies vomiting Genitourinary: Genitourinary: Denies dysuria and Denies urinary urgency Musculoskeletal: Musculoskeletal: Denies myalgias Integumentary/Breasts: Skin/Breast: Denies rash Neurologic: Reports confusion and Denies headache(s) Psychiatric: Psychiatric: Reports confusion Endocrine: Endocrine: Reports fatigue Hematologic/Lymphatic: Hematologic/Lymphatic: Denies easy bleeding and Denies easy bruising Allergic/Immunologic: Allergic/Immunologic: Denies wheezing [facility] Medical History Acute pericardial effusion COPD (chronic obstructive pulmonary disease) CHF (congestive heart failure) Graves disease Hypertension Vertigo Dizziness Surgical History No pertinent past surgical history H/O endoscopy H/O colonoscopy Social History Household Members: None Housing: House Do you presently have visiting nurse or other home services: Yes Alcohol intake: former Patient Tobacco Use Status: Former Tobacco user Tobacco use type: Cigarette Years Smoked: 30 Smoked in Last 30 Days: No e-Cigarette/Vaping Use: Never Used Second Hand Smoke Exposure: No Use of substances other than those prescribed or required for medical reasons: No Advance Directives: Yes Advance Directives on File: Yes Advance Directives Date on File: 03/09/23 service: Yes Meds Allergies Allergy/AdvReac Type Severity Reaction Status Date / Time amlodipine AdvReac Mild leg Verified 09/29/24 18:52 swelling Home Medications ?Medication ?Instructions ?Recorded ?Confirmed ?Last Taken ?Type allopurinol 300 mg tablet 300 mg PO DAILY 03/01/23 01/20/24 12/20/23 History omeprazole 20 mg capsule,delayed 20 mg PO DAILY@0630 03/01/23 01/20/24 12/20/23 History release sertraline 100 mg tablet 150 mg PO DAILY 12/22/23 01/20/24 12/20/23 History acetaminophen 325 mg tablet 650 mg PO Q4H PRN Pain (Scale 01/20/24 01/20/24 Unknown History Score 1-3) Physical Exam Vital Signs and Narrative: Vital Signs: Last Vital Signs Temp 98.1 F 09/29/24 18:49 Pulse 69 09/29/24 21:04 Resp 22 H 09/29/24 23:20 BP 150/85 H 09/29/24 23:18 Pulse Ox 87 L 09/29/24 23:20 O2 Del Method Room Air 09/29/24 23:20 O2 Flow Rate 2 09/29/24 21:04 Oxygen Flow Rate 2 09/29/24 18:49 BMI result Body Mass Index 30.6 General: Alert and oriented to person and place, no acute distress Resp: CTA bilaterally, no crackles or wheezing CVS: RRR +murmur GI: +BS, NT, no distention Skin: Warm, dry Neuro: Cranial nerves II-XII grossly intact bilaterally. Motor grossly intact bilaterally Extremities: No pitting edema Psych: Appropriate affect, mild confusion, lethargic Const: General: confusion Orientation/consciousness: confusion Eyes: Direct Ophthalmoscopy: No photophobia Neuro: General: confusion Results Labs 09/29/24 19:05 09/29/24 19:05 Labs: Laboratory Results - last 24 hr 09/29/24 09/29/24 19:05 19:10 MCV 96.1 MCH 32.3 MCHC 33.6 RDW 15.3 Plt Count 145 L D MPV 11.4 Immature Gran % (Auto) 0.6 H Neut % (Auto) 80.9 H Lymph % (Auto) 6.9 L [place] % (Auto) 11.1 H Eos % (Auto) 0.3 Baso % (Auto) 0.2 Lymph # (Auto) 0.7 L [place] # (Auto) 1.1 Eos # (Auto) 0.0 Baso # (Auto) 0.0 Abs Immat Gran (auto) 0.06 H Absolute Neuts (auto) 8.0 Absolute Nucleated RBC 0.000 Nucleated RBC % (auto) 0.0 Anion Gap 12 Estim Creat Clear Calc 47.3 Estimated GFR 58 Random Glucose 138 H Calcium 8.9 Total Bilirubin 1.0 AST 18 ALT 15 Alkaline Phosphatase 70 B-Natriuretic Peptide 3934 H Total Protein 6.0 L Albumin 4.0 Influenza Type A (PCR) NEGATIVE Influenza Type B (PCR) NEGATIVE RSV RNA Qual (PCR) NEGATIVE SARS-CoV-2 RNA (RT-PCR) NEGATIVE Assessment and Plan (1) Acute metabolic encephalopathy: Status: Acute (2) Acute on chronic heart failure with reduced ejection fraction (HFrEF, <= 40%): Status: Acute (3) Weakness: Status: Acute Plan Pt is an 84 yo male with a pmhx significant for dementia, HFrEF (40-45% 01/2024), FTT, HTN, paroxysmal a fib on eliquis, graves disesase, vertigo, and stage 1 COPD, who presented to the ED due to worsening AMS and SOB x1 week. acute metabolic encephalopathy secondary to acute on chronic HFrEF exacerbation - WBC normal, no sepsis - CXR negative - Chest CT negative - A/P CT negative - head CT negative - COVID/flu/RSV negative - UA negative - BNP 3934 - trop 62.2, 64.2 on repeat - EKG non-ischemic - given lasix 40mg IV x1 in ED - last echo 01/2024, repeat - morning team to f/u on need for repeat diuretics - follow CBC and BMP weakness -- -multiple recent falls - head CT negative - PT eval paroxysmal a fib - continue rate control and eliquis - monitor on tele graves disease - systane gtts for dry eyes per daughter's request HTN - was given nitro by EMS for HTN, BP well managed here - continue home meds stage 1 COPD, no acute exacerbation - no home meds DNR/DNI, discussed with daughter VTE prophy: kyle Pt with acute metabolic encephalopathy with acute on chronic CHF exacerbation requiring admission for at least 2 midnights stay for IV diuresis and monitoring. Quality Stroke Does the patient have a stroke diagnosis?: No VTE Prior VTE?: No VTE Risk Level:: Medical - moderate - high VTE Device Contraindication: Treatment Not Indicated VTE Drug Contraindication: N/A - Med Ordered
[2024-09-29 23:51] VITALS: BP 151/90; PULSE 66; RESP 22; O2SAT 95
[2024-09-30] VITALS (7 sets, daily range): BP systolic 145–170; BP diastolic 64–81; PULSE 65–87; RESP 18–26; TEMP 36.3–36.8; O2SAT 93–99; BMI 28.8
[2024-09-30 00:03] LABS: Appearance Urine Clear; Color Urine Yellow; Glucose Urine UA Negative (Negative); Leukocyte Esterase Urine Negative (Negative); Nitrite Urine Negative (Negative); PH 6.5 (5.0-9.0); Urine Blood Negative (Negative); Urine Ketones Negative (Negative); Urine Protein Negative (Neg-Trace)
--- NOTE | 2024-09-30 00:03 | PC.NURSE ---
Pt resting comfortably on stretcher, callbell in place and reinforced use. External catheter in place and urine sample sent by physics technical officer.
--- NOTE | 2024-09-30 03:06 | MHC.EDTECH ---
Replaced condom cath after previous one came off. Pt incontinent of large amount of urine. Pt cleaned and bedding changed. RN aware
--- NOTE | 2024-09-30 05:07 | PC.NURSE ---
Pt confused at this time and refusing to have his blood drawn. Phone call made to his daughter so he could speak with her.
--- NOTE | 2024-09-30 06:04 | PC.NURSE ---
Pt's daughter came in and is at bedside. Pt awaiting lab draw.
[2024-09-30 06:38] LABS: MANUAL DIFF FLAG NO
[2024-09-30 06:54] LABS: Anion Gap 13 (12-20); Blood Urea Nitrogen 32 mg/dL (9-16); Calcium 9.1 mg/dL (8.4-10.2); Carbon Dioxide 23 mmol/L (22-29); Chloride 109 mmol/L (96-108); Creatinine Clr Calc Pharmacy 47.3; Estimated Glomerular Filt Rate 58; Glucose Random 131 mg/dL (60-115); Potassium 3.6 mmol/L (3.3-5.1); Sodium 141 mmol/L (135-145)
[2024-09-30 07:00] LABS: Basophils Percent Auto 0.3 % (0-2); Eosinophils Absolute Auto 0.1 X10*3/uL (0.0-0.4); Eosinophils Percent Auto 0.7 % (0-4); Hematocrit 39.4 % (42.0-52.0); Hemoglobin 13.1 g/dl (14.0-18.0); Imm Gran Abs Auto 0.07 X10*3/uL (0.00-0.03); Imm Gran Pct Auto 0.8 % (0.0-0.4); Lymphocytes Absolute Auto 0.6 X10*3/uL (1.2-4.9); Lymphocytes Percent Auto 6.5 % (20-40); Mean Corpuscular HGB Conc 33.2 g/dl (31.0-36.0); Mean Corpuscular Hemoglobin 31.8 pg (27.0-33.0); Mean Corpuscular Volume 95.6 fL (80.0-98.0); Mean Platelet Volume 12.3 fL (9.4-12.4); Monocytes Absolute Auto 0.8 X10*3/uL (0.1-1.2); Monocytes Percent Auto 9.5 % (2-11); Neutrophils Absolute Auto 7.1 x10*3/uL (2.0-8.3); Neutrophils Percent Auto 82.2 % (45-73); Platelet Count 137 X10*3/uL (160-400); Red Blood Count 4.12 X10*6/uL (4.60-5.80); White Blood Count 8.7 X10*3/uL (4.8-10.8)
--- NOTE | 2024-09-30 07:00 | CA_ITS ---
Transthoracic Echocardiogram Patient (Last, First, Middle): Albert Tristan N Gender: Male Date of : 1940 Age: 84 Procedure Date: 09/30/2024 Procedure Type: Transthoracic Echocardiogram Location: [facility] [place] Height: 170.18 cm Weight: 88.45 kg BSA: 2.00 m2 Heart Rate: bpm BP: 147 / 74 mmHg Medical Representative: RAMONA Referring MD: Johanna Milan PA-C Symptoms: HFrEF exacerbation Study Quality: Adequate Conclusions: - Normal left ventricular cavity size. There is normal left ventricular wall thickness. The left ventricular systolic function is moderately decreased. The visually estimated ejection fraction is between 30-35%. - Normal right ventricular cavity size. There is mildly decreased right ventricular systolic function. - The left atrium is severely dilated. - There is mild to moderate aortic valve regurgitation. - There is moderate to severe mitral valve regurgitation. - Significantly elevated right atrial pressure. Moderate to severe pulmonary hypertension is present. - There is mild dilatation of the sinuses of Valsalva measuring 4.40 cm and mild dilatation of the ascending aorta measuring 4.00 cm. Findings Left Ventricle Normal left ventricular cavity size. There is normal left ventricular wall thickness. The left ventricular systolic function is moderately decreased. The visually estimated ejection fraction is between 30-35%. Diastolic function is indeterminate on the basis of available data. Right Ventricle Normal right ventricular cavity size. There is mildly decreased right ventricular systolic function. Atria The left atrium is severely dilated. The right atrium was not well visualized. Aortic Valve The aortic valve was not well visualized. There is no aortic valve stenosis. There is mild to moderate aortic valve regurgitation. Mitral Valve The mitral valve appears normal. The posterior mitral leaflet has restricted mobility. There is moderate to severe mitral valve regurgitation. The mitral regurgitation jet is directed posteriorly. There is no mitral valve stenosis. Pulmonic Valve The pulmonic valve was not well visualized. Tricuspid Valve Normal tricuspid valve structure. There is trace tricuspid valve regurgitation. The right ventricular systolic pressure is 55 mmHg. Significantly elevated right atrial pressure. Moderate to severe pulmonary hypertension is present. Great Vessels There is mild dilatation of the sinuses of Valsalva measuring 4.40 cm and mild dilatation of the ascending aorta measuring 4.00 cm. Venous The inferior vena cava is severely dilated and collapses less than 50% with inspiration. Pericardium/Pleural There is no evidence of pericardial effusion. Prior Study Comparison Changes noted compared to prior study dated: 01/24/2024. EF 30-35%, mod to severe MR present Measurements 2D Linear Measurements IVSd: 1.33 0.6-0.9/0.6-1.0 cm LVIDd: 6.02 3.9-5.3/4.2-5.9 cm LVIDd Index: 3.01 2.4-3.2/2.2-3.1 cm/m2 LVIDs: 5.29 2.0-3.6 cm LVPWd: 1.00 0.7-1.1 cm LA Diam: 4.60 2.7-3.8/3.0-4.0 cm LAIDs Index: 2.30 1.5-2.3 cm/m2 LV Mass: 377.71 67-162/88-224 g LV Mass Index: 188.85 43-95/49-115 g/m2 LVOT Diam: 2.40 3.0+(-)1.3 cm 2D Systolic Function EF 4C: 48.90 >55% EF 2C: 20.60 >55% EF BiP: 36.70 >55% Mitral Valve MV Pk E: 0.83 MV PK A: 0.38 MV Decel Time: 119.00 E/A: 2.20 E'Lateral: 7.48 E'Medial: 2.87 E/E' Med: 29.00 E/E' Lat: 11.10 PHT: 35.00 MVA PHT: 6.29 Decel Winn: 7.23 MR Vol - PW Dopp: 12.54 MR VTI: 2.09 MR ERO: 6.00 MR Alias Juan: 0.39 MR RAD: 0.40 Aortic Valve AoV Pk Juan: 1.50 AoV Mn Juan: 1.13 AoV VTI: 0.28 AoV Pk Grad: 9.00 Aov Mn Grad: 6.00 TED Cont.VTI: 2.16 AI Pk Juan: 4.54 AI VTI: 2.25 AI Winn: 2.79 AI Alias Juan: 0.39 AI RV - PISA: 11.00 ERO - PISA: 5.00 LVOT LVOT Pk Juan: 0.76 LVOT Mn Juan: 0.49 LVOT VTI: 0.13 LVOT Pk Grad: 2.00 LVOT Mn Grad: 1.00 LVOT Diam: 2.40 LVOT Area: 4.52 Diastolic Function MV Pk E: 0.83 MV Pk A: 0.38 E/A: 2.20 E'Medial: 2.87 E/E' Med: 29.00 E' Laterial: 7.48 E/E' Lat: 11.10 Right Ventricle TAPSE (mm): 14.00 TVS' Juan: 6.60 Tricuspid Valve TR Pk Juan: 3.15 TR Pk Grad: 40.00 RA Press: 15.00 RVSP: 55.00 Great Vessels Aorta Sinus of Valsalva: 4.40 2.0-3.5 cm Ao Asc: 4.00 2.1-3.4 cm Updated in Other Vendor System with Status of Final Jean Holm MD electronically signed on 09/30/2024 10:17:59 PM with status of Final
--- NOTE | 2024-09-30 07:40 | PC.NURSE ---
ASSUMED CARE OF PATIENT AT 0700, PATIENT AWAKES TO VERBAL STIMULI, RESP EVEN AND UNLABORED. PATIENT vss. EMPTIED PATIENT URINARY BAG 1000CC YELLOW URINE. PATIENT GIVEN BREAKFAST TRAY, STATES HE DOES NOT WANT TO EAT YET. LINENS CLEAN DRY AND INTACT
[2024-09-30] MEDS: Apixaban 5 MG TABLET PO ×2 (08:28→21:13)
--- NOTE | 2024-09-30 08:56 | MHC.CM.PN ---
Patient has a diagnosis of Dementia;CM spoke with Daughter/HCP/Dilcia @ [phone] and addressed IMM with her (original will be mailed certified letter to Daughter and a copy has been placed on the chart). Patient is a LTC Resident and private pay bedhold @ [facility] [place] [facility] and returning there is the goal. CM has initiated and will follow for dc planning. Patient will require BLS transport at time of dc.
--- NOTE | 2024-09-30 10:49 | PHA.MEDREC ---
Addendum entered by Uri Lewis 09/30/24 10:53: reviewed Original Note: Pharmacy Consult ? Medication Reconciliation Pharmacy has completed the medication reconciliation. Utilized list from [facility].
--- NOTE | 2024-09-30 13:21 | P.PNIM_ITS ---
Subjective Subjective Date of Service: 09/30/24 Interval History: f/u on shortness of breath, confusion intermittent confusion, and hypoxia Physical Exam 2 Vital Signs: Vital Signs: Last Vital Signs Temp 97.4 F 09/30/24 11:11 Pulse 72 09/30/24 11:11 Resp 20 09/30/24 11:11 BP 170/68 H 09/30/24 11:11 Pulse Ox 93 09/30/24 11:11 O2 Del Method Room Air 09/30/24 11:11 O2 Flow Rate 2 09/29/24 21:04 Oxygen Flow Rate 2 09/29/24 18:49 BMI result Body Mass Index 28.8 Const: Other: General: AO X 3, no acute distress Resp: CTA bilateral CVS: S1,S2,RRR GI: +BS, NT, no distention Skin: No rash Neuro: motor grossly intact Psych: appropriate affect Objective Data Active Medications Acetaminophen (Acetaminophen 325 Mg Tablet) 975 mg PO Q6H PRN PRN Reason: Pain, Mild 1-3,fever,headache Acetaminophen (Acetaminophen 325 Mg Tablet) 650 mg PO Q4H PRN PRN Reason: Pain/Fever Albuterol/Ipratropium (Albuterol/Iprat 2.5/0.5mg 3 Ml Ampul.Neb) 3 ml INHALE Q6H PRN PRN Reason: Shortness Of Breath Or Wheezing Allopurinol (Allopurinol 100 Mg Tablet) 200 mg PO DAILY [facility] Apixaban (Apixaban 5 Mg Tablet) 5 mg PO BID [facility] Last Admin: 09/30/24 08:28 Dose: 5 mg Documented By: NAYANA Artificial Tears (Artificial Tears 15 Ml Drops) 1 drop EYE-BOTH TID PRN PRN Reason: Dry Eye(S) Artificial Tears (Artificial Tears 15 Ml Drops) 1 drop EYE-BOTH QID [facility] Bisacodyl (Bisacodyl 10 Mg Supp.Rect) 10 mg [place] DAILY PRN PRN Reason: Constipation Calcium Carbonate (Calcium Carbonate 750 Mg Tab.Chew) 750 mg PO Q4H PRN PRN Reason: Heartburn Guaifenesin (Guaifenesin 200 Mg/10 Ml 10 Ml Liquid) 10 ml PO Q6H PRN PRN Reason: Cough Magnesium Hydroxide (Milk Of Magnesia 30 Ml Oral.Susp) 30 ml PO DAILY PRN PRN Reason: Constipation Magnesium Hydroxide (Milk Of Magnesia 30 Ml Oral.Susp) 30 ml PO DAILY PRN PRN Reason: Constipation Melatonin (Melatonin 3 Mg Tablet) 6 mg PO BEDTIME PRN PRN Reason: Insomnia Metoprolol Succinate (Metoprolol Succinate Er 25 Mg Tab.Er.24h) 25 mg PO DAILY KARLENE; Protocol Ondansetron HCl (Ondansetron Hcl 4 Mg/2 Ml Vial) 4 mg IVPUSH Q8H PRN PRN Reason: Nausea and Vomiting Polyethyl Glycol/Propylene Glycol (Propylene Glycol/Peg 400 Gel Eye Drops 10ml) 1 drop EYE-BOTH DAILY PRN PRN Reason: Dry Eyes Potassium Chloride (Potassium Chloride Er 20 Meq Tab.Er.Prt) 20 meq PO DAILY [facility]LEN[facility] Sertraline HCl (Sertraline Hcl 50 Mg Tablet) 150 mg PO DAILY [facility] Sodium Biphosphate/Sodium Phosphate (Sodium Phosphate,[place]-Dibasic 133 Ml Enema) 118 ml [place] DAILY PRN PRN Reason: Constipation Sodium Chloride (0.9 % Sodium Chloride Flush 3 Ml Syringe) 3 ml IVFLUSH QSHIFT KARLENE Last Admin: 09/30/24 07:23 Dose: Not Given Documented By: BROWN Non-Admin Reason: See Note Spironolactone (Spironolactone 25 Mg Tablet) 50 mg PO DAILY KARLENE; Protocol Valsartan (Valsartan 40 Mg Tablet) 40 mg PO DAILY KARLENE; Protocol Labs 09/30/24 06:09 09/30/24 06:09 Labs: Laboratory Results - last 24 hr 09/29/24 09/29/24 09/29/24 19:05 19:10 23:52 MCV 96.1 MCH 32.3 MCHC 33.6 RDW 15.3 Plt Count 145 L D MPV 11.4 Immature Gran % (Auto) 0.6 H Neut % (Auto) 80.9 H Lymph % (Auto) 6.9 L [place] % (Auto) 11.1 H Eos % (Auto) 0.3 Baso % (Auto) 0.2 Lymph # (Auto) 0.7 L [place] # (Auto) 1.1 Eos # (Auto) 0.0 Baso # (Auto) 0.0 Abs Immat Gran (auto) 0.06 H Absolute Neuts (auto) 8.0 Absolute Nucleated RBC 0.000 Nucleated RBC % (auto) 0.0 Anion Gap 12 Estim Creat Clear Calc 47.3 Estimated GFR 58 Random Glucose 138 H Calcium 8.9 Total Bilirubin 1.0 AST 18 ALT 15 Alkaline Phosphatase 70 B-Natriuretic Peptide 3934 H Total Protein 6.0 L Albumin 4.0 Urine Color Yellow Urine Appearance Clear Urine pH 6.5 Ur Specific [place] 1.010 Urine Protein Negative Urine Glucose (UA) Negative Urine Ketones Negative Urine Blood Negative Urine Nitrite Negative Ur Leukocyte Esterase Negative Influenza Type A (PCR) NEGATIVE Influenza Type B (PCR) NEGATIVE RSV RNA Qual (PCR) NEGATIVE SARS-CoV-2 RNA (RT-PCR) NEGATIVE 09/30/24 06:09 MCV 95.6 MCH 31.8 MCHC 33.2 RDW 15.0 Plt Count 137 L MPV 12.3 Immature Gran % (Auto) 0.8 H Neut % (Auto) 82.2 H Lymph % (Auto) 6.5 L [place] % (Auto) 9.5 Eos % (Auto) 0.7 Baso % (Auto) 0.3 Lymph # (Auto) 0.6 L [place] # (Auto) 0.8 Eos # (Auto) 0.1 Baso # (Auto) 0.0 Abs Immat Gran (auto) 0.07 H Absolute Neuts (auto) 7.1 Absolute Nucleated RBC 0.000 Nucleated RBC % (auto) 0.0 Anion Gap 13 Estim Creat Clear Calc 47.3 Estimated GFR 58 Random Glucose 131 H Calcium 9.1 Total Bilirubin AST ALT Alkaline Phosphatase B-Natriuretic Peptide Total Protein Albumin Urine Color Urine Appearance Urine pH Ur Specific [place] Urine Protein Urine Glucose (UA) Urine Ketones Urine Blood Urine Nitrite Ur Leukocyte Esterase Influenza Type A (PCR) Influenza Type B (PCR) RSV RNA Qual (PCR) SARS-CoV-2 RNA (RT-PCR) Assessment and Plan (1) CHF (congestive heart failure): Status: Acute (2) Graves disease: Status: Acute Plan Pt is an 84 yo male with a pmhx significant for dementia, HFrEF (40-45% 01/2024), FTT, HTN, paroxysmal a fib on eliquis, graves disesase, vertigo, and stage 1 COPD, who presented to the ED due to worsening AMS and SOB x1 week. acute metabolic encephalopathy likely d/t hypoxia was reported as having O2 sat in 70s, presently better but still with elements of confusion Acute on chronic HFpEF IV diuretics and monitor closely monitor I/O weakness -- -multiple recent falls, CT head negative paroxysmal a fib, rate controle, continue eliquis graves disease - systane gtts for dry eyes per daughter's request HTN, resume home meds stage 1 COPD, no acute exacerbation - no home meds Gout , allopurinol DNR/DNI, discussed with daughter VTE prophy: kyle Pt with acute metabolic encephalopathy with acute on chronic CHF exacerbation requiring admission for at least 2 midnights stay for IV diuresis and monitoring. gout allopurinol dvt prophylaxis - eliquis DNR/DNI reason for continued hospitalization:hypokalemia Quality Stroke Does the patient have a stroke diagnosis?: No VTE Prior VTE?: No VTE Risk Level:: Medical - moderate - high VTE Device Contraindication: Treatment Not Indicated VTE Drug Contraindication: N/A - Med Ordered
[2024-09-30] MEDS: allopurinoL 100 MG TABLET 200 MG PO (13:48)
[2024-09-30] MEDS: Metoprolol Succinate ER 25 MG TAB.ER.24H PO (13:49)
[2024-09-30] MEDS: Potassium Chloride ER 20 MEQ TAB.ER.PRT PO (13:49)
[2024-09-30] MEDS: Spironolactone 25 MG TABLET 50 MG PO (13:49)
[2024-09-30] MEDS: Sertraline HCL 50 MG TABLET 150 MG PO (13:50)
[2024-09-30] MEDS: Valsartan 40 MG TABLET PO (13:57)
[2024-09-30 14:19] LABS: Venous Blood Gas Refer to POC result
[2024-09-30 14:20] LABS: VBG Base Excess 1.9 mmol/L; VBG HCO3 25 mmol/L (22-26); VBG pCO2 37 mmHg; VBG pH 7.44 (7.32-7.43); VBG pO2 82 mmHg
[2024-09-30] MEDS: Artificial Tears 15 ML DROPS 1 DROP EYE-BOTH ×2 (18:12→21:18)
[2024-09-30] MEDS: Furosemide 40 MG/4 ML VIAL IVPUSH (18:12)
[2024-09-30] MEDS: 0.9 % Sodium Chloride Flush 3 ML SYRINGE IVFLUSH ×2 (18:13→21:13)
[2024-10-01 03:05] VITALS: BP 148/92; PULSE 66; RESP 18; TEMP 36.8; O2SAT 96
[2024-10-01 06:33] LABS: MANUAL DIFF FLAG NO
[2024-10-01 06:40] LABS: Basophils Percent Auto 0.5 % (0-2); Eosinophils Absolute Auto 0.1 X10*3/uL (0.0-0.4); Eosinophils Percent Auto 0.8 % (0-4); Hematocrit 41.5 % (42.0-52.0); Imm Gran Abs Auto 0.04 X10*3/uL (0.00-0.03); Imm Gran Pct Auto 0.5 % (0.0-0.4); Lymphocytes Absolute Auto 0.7 X10*3/uL (1.2-4.9); Lymphocytes Percent Auto 8.1 % (20-40); Mean Corpuscular HGB Conc 33.7 g/dl (31.0-36.0); Mean Corpuscular Hemoglobin 31.7 pg (27.0-33.0); Mean Corpuscular Volume 93.9 fL (80.0-98.0); Mean Platelet Volume 11.9 fL (9.4-12.4); Monocytes Absolute Auto 0.9 X10*3/uL (0.1-1.2); Monocytes Percent Auto 10.2 % (2-11); Neutrophils Absolute Auto 6.9 x10*3/uL (2.0-8.3); Neutrophils Percent Auto 79.9 % (45-73); Platelet Count 142 X10*3/uL (160-400); Red Blood Count 4.42 X10*6/uL (4.60-5.80); Red Cell Distribution Width 15.1 % (11.0-16.0); White Blood Count 8.6 X10*3/uL (4.8-10.8)
[2024-10-01 06:51] LABS: Anion Gap 15 (12-20); Blood Urea Nitrogen 33 mg/dL (9-16); Calcium 9.2 mg/dL (8.4-10.2); Carbon Dioxide 27 mmol/L (22-29); Chloride 104 mmol/L (96-108); Creatinine Clr Calc Pharmacy 42.1; Estimated Glomerular Filt Rate 52; Glucose Random 114 mg/dL (60-115); Potassium 3.3 mmol/L (3.3-5.1); Sodium 143 mmol/L (135-145)
[2024-10-01 07:01] VITALS: BP 142/80; PULSE 71; RESP 17; TEMP 36.8; O2SAT 97
[2024-10-01] MEDS: Apixaban 5 MG TABLET PO ×2 (09:12→21:51)
[2024-10-01] MEDS: Sertraline HCL 50 MG TABLET 150 MG PO (09:12)
[2024-10-01] MEDS: Valsartan 40 MG TABLET PO (09:12)
[2024-10-01] MEDS: allopurinoL 100 MG TABLET 200 MG PO (09:12)
[2024-10-01] MEDS: Spironolactone 25 MG TABLET 50 MG PO (09:12)
[2024-10-01] MEDS: Metoprolol Succinate ER 25 MG TAB.ER.24H PO (09:12)
[2024-10-01] MEDS: Furosemide 40 MG/4 ML VIAL IVPUSH (09:16)
[2024-10-01] MEDS: 0.9 % Sodium Chloride Flush 3 ML SYRINGE IVFLUSH ×3 (09:20→21:51)
[2024-10-01] MEDS: Artificial Tears 15 ML DROPS 1 DROP EYE-BOTH ×2 (09:21→14:26)
[2024-10-01] MEDS: Potassium Chloride ER 20 MEQ TAB.ER.PRT PO (09:23)
--- NOTE | 2024-10-01 11:11 | P.PNIM_ITS ---
Subjective Subjective Date of Service: 10/01/24 Interval History: f/u on shortness of breath, confusion at baseline, no sob, ? baseline cofusion Physical Exam 2 Vital Signs: Vital Signs: Last Vital Signs Temp 98.3 F 10/01/24 07:01 Pulse 71 10/01/24 07:01 Resp 17 10/01/24 07:01 BP 142/80 H 10/01/24 07:01 Pulse Ox 97 10/01/24 07:01 O2 Del Method Room Air 10/01/24 07:01 O2 Flow Rate 2 09/30/24 23:19 Oxygen Flow Rate 2 09/29/24 18:49 BMI result Body Mass Index 28.8 Const: Other: General: AO X 2, no acute distress Resp: CTA bilateral CVS: S1,S2,RRR GI: +BS, NT, no distention Skin: No rash Neuro: motor grossly intact Psych: appropriate affect Objective Data Active Medications Acetaminophen (Acetaminophen 325 Mg Tablet) 975 mg PO Q6H PRN PRN Reason: Pain, Mild 1-3,fever,headache Acetaminophen (Acetaminophen 325 Mg Tablet) 650 mg PO Q4H PRN PRN Reason: Pain/Fever Albuterol/Ipratropium (Albuterol/Iprat 2.5/0.5mg 3 Ml Ampul.Neb) 3 ml INHALE Q6H PRN PRN Reason: Shortness Of Breath Or Wheezing Allopurinol (Allopurinol 100 Mg Tablet) 200 mg PO DAILY [facility] Last Admin: 10/01/24 09:12 Dose: 200 mg Documented By: CLARIBEL Apixaban (Apixaban 5 Mg Tablet) 5 mg PO BID [facility] Last Admin: 10/01/24 09:12 Dose: 5 mg Documented By: CLARIBEL Artificial Tears (Artificial Tears 15 Ml Drops) 1 drop EYE-BOTH TID PRN PRN Reason: Dry Eye(S) Artificial Tears (Artificial Tears 15 Ml Drops) 1 drop EYE-BOTH QID [facility] Last Admin: 10/01/24 09:21 Dose: 1 drop Documented By: CLARIBEL Bisacodyl (Bisacodyl 10 Mg Supp.Rect) 10 mg [place] DAILY PRN PRN Reason: Constipation Calcium Carbonate (Calcium Carbonate 750 Mg Tab.Chew) 750 mg PO Q4H PRN PRN Reason: Heartburn Furosemide (Furosemide 40 Mg/4 Ml Vial) 40 mg IVPUSH BID@0900,1800 [facility]; Protocol Last Admin: 10/01/24 09:16 Dose: 40 mg Documented By: CLARIBEL Guaifenesin (Guaifenesin 200 Mg/10 Ml 10 Ml Liquid) 10 ml PO Q6H PRN PRN Reason: Cough Magnesium Hydroxide (Milk Of Magnesia 30 Ml Oral.Susp) 30 ml PO DAILY PRN PRN Reason: Constipation Magnesium Hydroxide (Milk Of Magnesia 30 Ml Oral.Susp) 30 ml PO DAILY PRN PRN Reason: Constipation Melatonin (Melatonin 3 Mg Tablet) 6 mg PO BEDTIME PRN PRN Reason: Insomnia Metoprolol Succinate (Metoprolol Succinate Er 25 Mg Tab.Er.24h) 25 mg PO DAILY [facility]; Protocol Last Admin: 10/01/24 09:12 Dose: 25 mg Documented By: CLARIBEL Ondansetron HCl (Ondansetron Hcl 4 Mg/2 Ml Vial) 4 mg IVPUSH Q8H PRN PRN Reason: Nausea and Vomiting Polyethyl Glycol/Propylene Glycol (Propylene Glycol/Peg 400 Gel Eye Drops 10ml) 1 drop EYE-BOTH DAILY PRN PRN Reason: Dry Eyes Potassium Chloride (Potassium Chloride Er 20 Meq Tab.Er.Prt) 20 meq PO DAILY [facility] Last Admin: 10/01/24 09:23 Dose: 20 meq Documented By: CLARIBEL Sertraline HCl (Sertraline Hcl 50 Mg Tablet) 150 mg PO DAILY [facility] Last Admin: 10/01/24 09:12 Dose: 150 mg Documented By: CLARIBEL Sodium Biphosphate/Sodium Phosphate (Sodium Phosphate,[place]-Dibasic 133 Ml Enema) 118 ml [place] DAILY PRN PRN Reason: Constipation Sodium Chloride (0.9 % Sodium Chloride Flush 3 Ml Syringe) 3 ml IVFLUSH QSHIFT [facility] Last Admin: 10/01/24 09:20 Dose: 3 ml Documented By: CLARIBEL Spironolactone (Spironolactone 25 Mg Tablet) 50 mg PO DAILY [facility]; Protocol Last Admin: 10/01/24 09:12 Dose: 50 mg Documented By: CLARIBEL Valsartan (Valsartan 40 Mg Tablet) 40 mg PO DAILY [facility]; Protocol Last Admin: 10/01/24 09:12 Dose: 40 mg Documented By: CLARIBEL Labs 10/01/24 06:00 10/01/24 06:00 Labs: Laboratory Results - last 24 hr 09/30/24 10/01/24 14:16 06:00 MCV 93.9 MCH 31.7 MCHC 33.7 RDW 15.1 Plt Count 142 L MPV 11.9 Immature Gran % (Auto) 0.5 H Neut % (Auto) 79.9 H Lymph % (Auto) 8.1 L [place] % (Auto) 10.2 Eos % (Auto) 0.8 Baso % (Auto) 0.5 Lymph # (Auto) 0.7 L [place] # (Auto) 0.9 Eos # (Auto) 0.1 Baso # (Auto) 0.0 Abs Immat Gran (auto) 0.04 H Absolute Neuts (auto) 6.9 Absolute Nucleated RBC 0.000 Nucleated RBC % (auto) 0.0 VBG pH 7.44 H VBG pCO2 37 VBG pO2 82 VBG HCO3 25 VBG O2 Saturation 97.0 VBG Base Excess 1.9 Anion Gap 15 Estim Creat Clear Calc 42.1 Estimated GFR 52 Random Glucose 114 Calcium 9.2 Assessment and Plan (1) CHF (congestive heart failure): Status: Acute (2) Graves disease: Status: Acute Plan Pt is an 84 yo male with a pmhx significant for dementia, HFrEF (40-45% 01/2024), FTT, HTN, paroxysmal a fib on eliquis, graves disesase, vertigo, and stage 1 COPD, who presented to the ED due to worsening AMS and SOB x1 week. acute metabolic encephalopathy likely d/t hypoxia was reported as having O2 sat in 70s, presently better but still with elements of confusion Acute on chronic HFpEF, improving IV diuretics to PO today, monitor I/O, Creatine cardiology consult weakness -- -multiple recent falls, CT head negative, paroxysmal a fib, rate controlled, continue eliquis graves disease - systane gtts for dry eyes per daughter's request HTN, continue home meds metoprolol , aldactone and valsartan stage 1 COPD, no acute exacerbation - no home meds Gout , allopurinol DNR/DNI, discussed with daughter VTE prophy: eliquis Pt with acute metabolic encephalopathy with acute on chronic CHF exacerbation requiring admission for at least 2 midnights stay for IV diuresis and monitoring. gout allopurinol dvt prophylaxis - eliquis DNR/DNI reason for continued hospitalization:hypokalemia possible dc after seen by cardiology Quality Stroke Does the patient have a stroke diagnosis?: No VTE Prior VTE?: No VTE Risk Level:: Medical - moderate - high VTE Device Contraindication: Treatment Not Indicated VTE Drug Contraindication: N/A - Med Ordered
[2024-10-01 11:20] VITALS: BP 91/60; PULSE 65; RESP 16; TEMP 36.1; O2SAT 92
--- NOTE | 2024-10-01 12:37 | PM.CNCAR ---
History of Present Illness History of Present Illness Date of Service: 10/01/24 Requesting physician: Jairo Mendez Chief complaint: CHF exacerbation Narrative: Pleasant 84-year-old gentleman with background history of cardiomyopathy with EF 40-45% presenting with shortness of breath and change in mental status. He continues to have some delirium off and on but overall has improved. It was felt that he was hypoxic and developed confusion due to that. He was noticed to be in congestive heart failure. He has been on IV diuretics. He is denying any chest discomfort shortness of breath. He underwent echocardiography yesterday where EF was noticed to be reduced at 30 35% with mildly decreased right ventricular function, severe left atrial dilatation, fawm-[id number] aortic valve regurgitation and mumluebh-tl-ibtbvb mitral valve regurgitation. Kgqgyevk-fo-pnhpvc pulmonary hypertension was also noted. He has been on valsartan, spironolactone, metoprolol succinate. He was on Eliquis for anticoagulation for paroxysmal atrial fibrillation. It appears he also had multiple falls recently. He previously had tamponade and underwent pericardial window. [facility] Past Medical History Medical History Acute pericardial effusion COPD (chronic obstructive pulmonary disease) CHF (congestive heart failure) Graves disease Hypertension Vertigo Dizziness Surgical History Surgical History No pertinent past surgical history H/O endoscopy H/O colonoscopy Social History Social History Household Members: None Housing: Retirement Do you presently have visiting nurse or other home services: No Alcohol intake: former Patient Tobacco Use Status: Former Tobacco user Tobacco use type: Cigarette Years Smoked: 30 e-Cigarette/Vaping Use: Never Used Second Hand Smoke Exposure: No Advance Directives Date on File: 03/09/23 service: Yes Meds Allergies Allergy/AdvReac Type Severity Reaction Status Date / Time amlodipine AdvReac Mild leg Verified 09/29/24 18:52 swelling Active Medications: Current Medications Acetaminophen (Acetaminophen 325 Mg Tablet) 975 mg PO Q6H PRN PRN Reason: Pain, Mild 1-3,fever,headache Acetaminophen (Acetaminophen 325 Mg Tablet) 650 mg PO Q4H PRN PRN Reason: Pain/Fever Albuterol/Ipratropium (Albuterol/Iprat 2.5/0.5mg 3 Ml Ampul.Neb) 3 ml INHALE Q6H PRN PRN Reason: Shortness Of Breath Or Wheezing Allopurinol (Allopurinol 100 Mg Tablet) 200 mg PO DAILY [facility] Last Admin: 10/01/24 09:12 Dose: 200 mg Apixaban (Apixaban 5 Mg Tablet) 5 mg PO BID [facility] Last Admin: 10/01/24 09:12 Dose: 5 mg Artificial Tears (Artificial Tears 15 Ml Drops) 1 drop EYE-BOTH TID PRN PRN Reason: Dry Eye(S) Artificial Tears (Artificial Tears 15 Ml Drops) 1 drop EYE-BOTH QID [facility] Last Admin: 10/01/24 09:21 Dose: 1 drop Bisacodyl (Bisacodyl 10 Mg Supp.Rect) 10 mg [place] DAILY PRN PRN Reason: Constipation Calcium Carbonate (Calcium Carbonate 750 Mg Tab.Chew) 750 mg PO Q4H PRN PRN Reason: Heartburn Guaifenesin (Guaifenesin 200 Mg/10 Ml 10 Ml Liquid) 10 ml PO Q6H PRN PRN Reason: Cough Magnesium Hydroxide (Milk Of Magnesia 30 Ml Oral.Susp) 30 ml PO DAILY PRN PRN Reason: Constipation Magnesium Hydroxide (Milk Of Magnesia 30 Ml Oral.Susp) 30 ml PO DAILY PRN PRN Reason: Constipation Melatonin (Melatonin 3 Mg Tablet) 6 mg PO BEDTIME PRN PRN Reason: Insomnia Metoprolol Succinate (Metoprolol Succinate Er 25 Mg Tab.Er.24h) 25 mg PO DAILY [facility]; Protocol Last Admin: 10/01/24 09:12 Dose: 25 mg Ondansetron HCl (Ondansetron Hcl 4 Mg/2 Ml Vial) 4 mg IVPUSH Q8H PRN PRN Reason: Nausea and Vomiting Polyethyl Glycol/Propylene Glycol (Propylene Glycol/Peg 400 Gel Eye Drops 10ml) 1 drop EYE-BOTH DAILY PRN PRN Reason: Dry Eyes Potassium Chloride (Potassium Chloride Er 20 Meq Tab.Er.Prt) 20 meq PO DAILY [facility] Last Admin: 10/01/24 09:23 Dose: 20 meq Sertraline HCl (Sertraline Hcl 50 Mg Tablet) 150 mg PO DAILY [facility] Last Admin: 10/01/24 09:12 Dose: 150 mg Sodium Biphosphate/Sodium Phosphate (Sodium Phosphate,[place]-Dibasic 133 Ml Enema) 118 ml [place] DAILY PRN PRN Reason: Constipation Sodium Chloride (0.9 % Sodium Chloride Flush 3 Ml Syringe) 3 ml IVFLUSH QSHIFT [facility] Last Admin: 10/01/24 09:20 Dose: 3 ml Spironolactone (Spironolactone 25 Mg Tablet) 50 mg PO DAILY [facility]; Protocol Last Admin: 10/01/24 09:12 Dose: 50 mg Valsartan (Valsartan 40 Mg Tablet) 40 mg PO DAILY [facility]; Protocol Last Admin: 10/01/24 09:12 Dose: 40 mg Home Medications ?Medication ?Instructions ?Recorded ?Confirmed ?Last Taken ?Type sertraline 100 mg tablet 150 mg PO DAILY 12/22/23 09/30/24 12/20/23 History acetaminophen 325 mg tablet 650 mg PO Q4H PRN Pain/Fever 01/20/24 09/30/24 Unknown History allopurinol 100 mg tablet 200 mg PO DAILY 09/30/24 09/30/24 Unknown History bisacodyl 10 mg rectal suppository 10 mg [place] DAILY PRN Constipation 09/30/24 09/30/24 Unknown History calcium carbonate 1,000 mg PO DAILY PRN Dyspepsia 09/30/24 09/30/24 Unknown History dextran 70-hypromellose (PF) 0.1 1 drp ophthalmic (eye) QID 09/30/24 09/30/24 Unknown History %-0.3 % eye drops in a dropperette dextran 70-hypromellose 0.1 %-0.3 1 drp ophthalmic (eye) TID PRN Dry 09/30/24 09/30/24 Unknown History % eye drops Eye(S) guaifenesin 100 mg/5 mL oral 200 mg PO Q6H PRN Cough 09/30/24 09/30/24 Unknown History liquid (Rain-Tussin) ipratropium 0.5 mg-albuterol 3 mg 3 ml inhalation Q6H PRN Shortness 09/30/24 09/30/24 Unknown History (2.5 mg base)/3 mL nebulization Of Breath Or Wheezing soln magnesium hydroxide 400 mg/5 mL 30 ml PO DAILY PRN Constipation 09/30/24 09/30/24 Unknown History oral suspension (Milk of Magnesia) sodium phosphates 19 gram-7 118 ml [place] DAILY PRN Constipation 09/30/24 09/30/24 Unknown History gram/118 mL enema spironolactone 25 mg tablet 50 mg PO DAILY 09/30/24 09/30/24 Unknown History valsartan 40 mg tablet 40 mg PO DAILY 09/30/24 09/30/24 Unknown History Physical Exam Vital Signs: Vital Signs: Last Vital Signs Temp 97.0 F 10/01/24 11:20 Pulse 65 10/01/24 11:20 Resp 16 10/01/24 11:20 BP 91/60 10/01/24 11:20 Pulse Ox 92 10/01/24 11:20 O2 Del Method Room Air 10/01/24 11:20 O2 Flow Rate 2 09/30/24 23:19 Oxygen Flow Rate 2 09/29/24 18:49 BMI result Body Mass Index 28.8 GENERAL APPEARANCE: In no acute distress. NECK: no carotid bruit, no jugular venous distention. SKIN: no suspicious lesions, warm and dry. HEART: Holosystolic murmur at the apex, regular rate and rhythm. LUNGS: clear to auscultation bilaterally. ABDOMEN: soft, nontender. EXTREMITIES: no edema. PERIPHERAL PULSES: equal. NEUROLOGIC: No gross deficits, AAO X 3 Objective Labs and Meds 10/01/24 06:00 10/01/24 06:00 Lab results: Laboratory Results - last 24 hr 09/30/24 10/01/24 14:16 06:00 WBC 8.6 RBC 4.42 L Hgb 14.0 Hct 41.5 L MCV 93.9 MCH 31.7 MCHC 33.7 RDW 15.1 Plt Count 142 L MPV 11.9 Immature Gran % (Auto) 0.5 H Neut % (Auto) 79.9 H Lymph % (Auto) 8.1 L [place] % (Auto) 10.2 Eos % (Auto) 0.8 Baso % (Auto) 0.5 Lymph # (Auto) 0.7 L [place] # (Auto) 0.9 Eos # (Auto) 0.1 Baso # (Auto) 0.0 Abs Immat Gran (auto) 0.04 H Absolute Neuts (auto) 6.9 Absolute Nucleated RBC 0.000 Nucleated RBC % (auto) 0.0 VBG pH 7.44 H VBG pCO2 37 VBG pO2 82 VBG HCO3 25 VBG O2 Saturation 97.0 VBG Base Excess 1.9 Sodium 143 Potassium 3.3 Chloride 104 Carbon Dioxide 27 Anion Gap 15 BUN 33 H Creatinine 1.30 Estim Creat Clear Calc 42.1 Estimated GFR 52 Random Glucose 114 Calcium 9.2 Assessment and Plan (1) Acute on chronic heart failure with reduced ejection fraction (HFrEF, <= 40%): Status: Acute (2) Mitral regurgitation: Status: Acute Plan 84=year-old with known cardiomyopathy here with confusion and ADCHF. Echo showing mod to severe MR and EF 30-35%. Clinically euvolemic. Can change to PO diuretics. c/w Valsartan, metoprolol and spironolactone. Hold apixaban given multiple falls. We will follow along with you. Procedures Date of Service Date of Service: 10/01/24
[2024-10-01 15:19] VITALS: BP 92/60; PULSE 94; RESP 16; TEMP 36.4; O2SAT 93
[2024-10-01 20:00] VITALS: BP 133/68; PULSE 72; RESP 16; TEMP 36.4; O2SAT 95
[2024-10-01 23:33] VITALS: BP 121/62; PULSE 65; RESP 16; TEMP 37; O2SAT 97
[2024-10-02] VITALS (7 sets, daily range): BP systolic 104–137; BP diastolic 59–80; PULSE 60–73; RESP 16–20; TEMP 36.2–37.1; O2SAT 93–98
[2024-10-02 07:10] LABS: MANUAL DIFF FLAG NO
[2024-10-02 07:36] LABS: Basophils Percent Auto 0.3 % (0-2); Eosinophils Absolute Auto 0.2 X10*3/uL (0.0-0.4); Eosinophils Percent Auto 1.9 % (0-4); Hematocrit 42.6 % (42.0-52.0); Hemoglobin 14.5 g/dl (14.0-18.0); Imm Gran Abs Auto 0.06 X10*3/uL (0.00-0.03); Imm Gran Pct Auto 0.7 % (0.0-0.4); Lymphocytes Absolute Auto 0.8 X10*3/uL (1.2-4.9); Lymphocytes Percent Auto 9.1 % (20-40); Mean Corpuscular Hemoglobin 31.9 pg (27.0-33.0); Mean Corpuscular Volume 93.6 fL (80.0-98.0); Monocytes Percent Auto 11.4 % (2-11); Neutrophils Percent Auto 76.6 % (45-73); Platelet Count 150 X10*3/uL (160-400); Red Blood Count 4.55 X10*6/uL (4.60-5.80); Red Cell Distribution Width 15.1 % (11.0-16.0); White Blood Count 9.1 X10*3/uL (4.8-10.8)
[2024-10-02 07:39] LABS: Anion Gap 14 (12-20); Blood Urea Nitrogen 41 mg/dL (9-16); Calcium 8.7 mg/dL (8.4-10.2); Carbon Dioxide 23 mmol/L (22-29); Chloride 108 mmol/L (96-108); Creatinine Clr Calc Pharmacy 38.8; Estimated Glomerular Filt Rate 48; Glucose Random 116 mg/dL (60-115); Potassium 3.7 mmol/L (3.3-5.1); Sodium 141 mmol/L (135-145)
[2024-10-02] MEDS: allopurinoL 100 MG TABLET 200 MG PO (07:59)
[2024-10-02] MEDS: Metoprolol Succinate ER 25 MG TAB.ER.24H PO (07:59)
[2024-10-02] MEDS: Sertraline HCL 50 MG TABLET 150 MG PO (07:59)
[2024-10-02] MEDS: Valsartan 40 MG TABLET PO (08:00)
[2024-10-02] MEDS: Potassium Chloride ER 20 MEQ TAB.ER.PRT PO (08:00)
[2024-10-02] MEDS: Spironolactone 25 MG TABLET 50 MG PO (08:00)
[2024-10-02] MEDS: Artificial Tears 15 ML DROPS 1 DROP EYE-BOTH ×3 (08:01→16:05)
[2024-10-02] MEDS: 0.9 % Sodium Chloride Flush 3 ML SYRINGE IVFLUSH ×2 (08:09→21:03)
--- NOTE | 2024-10-02 10:59 | P.PNIM_ITS ---
Subjective Subjective Date of Service: 10/02/24 Interval History: f/u on shortness of breath, confusion at baseline, no sob, ? baseline cofusion Physical Exam 2 Vital Signs: Vital Signs: Last Vital Signs Temp 97.1 F 10/02/24 06:51 Pulse 69 10/02/24 06:51 Resp 20 10/02/24 06:51 BP 134/80 10/02/24 06:51 Pulse Ox 96 10/02/24 06:51 O2 Del Method Room Air 10/02/24 06:51 O2 Flow Rate 2 09/30/24 23:19 Oxygen Flow Rate 2 09/29/24 18:49 BMI result Body Mass Index 28.8 Const: Other: General: AO X 3, no acute distress Resp: CTA bilateral CVS: S1,S2,RRR GI: +BS, NT, no distention Skin: No rash Neuro: motor grossly intact Psych: appropriate affect Objective Data Active Medications Acetaminophen (Acetaminophen 325 Mg Tablet) 975 mg PO Q6H PRN PRN Reason: Pain, Mild 1-3,fever,headache Acetaminophen (Acetaminophen 325 Mg Tablet) 650 mg PO Q4H PRN PRN Reason: Pain/Fever Albuterol/Ipratropium (Albuterol/Iprat 2.5/0.5mg 3 Ml Ampul.Neb) 3 ml INHALE Q6H PRN PRN Reason: Shortness Of Breath Or Wheezing Allopurinol (Allopurinol 100 Mg Tablet) 200 mg PO DAILY [facility] Last Admin: 10/02/24 07:59 Dose: 200 mg Documented By: KAT Apixaban (Apixaban 5 Mg Tablet) 5 mg PO BID [facility] Last Admin: 10/01/24 21:51 Dose: 5 mg Documented By: ANGEL Artificial Tears (Artificial Tears 15 Ml Drops) 1 drop EYE-BOTH TID PRN PRN Reason: Dry Eye(S) Artificial Tears (Artificial Tears 15 Ml Drops) 1 drop EYE-BOTH QID [facility] Last Admin: 10/02/24 08:01 Dose: 1 drop Documented By: KAT Bisacodyl (Bisacodyl 10 Mg Supp.Rect) 10 mg [place] DAILY PRN PRN Reason: Constipation Calcium Carbonate (Calcium Carbonate 750 Mg Tab.Chew) 750 mg PO Q4H PRN PRN Reason: Heartburn Guaifenesin (Guaifenesin 200 Mg/10 Ml 10 Ml Liquid) 10 ml PO Q6H PRN PRN Reason: Cough Magnesium Hydroxide (Milk Of Magnesia 30 Ml Oral.Susp) 30 ml PO DAILY PRN PRN Reason: Constipation Magnesium Hydroxide (Milk Of Magnesia 30 Ml Oral.Susp) 30 ml PO DAILY PRN PRN Reason: Constipation Melatonin (Melatonin 3 Mg Tablet) 6 mg PO BEDTIME PRN PRN Reason: Insomnia Metoprolol Succinate (Metoprolol Succinate Er 25 Mg Tab.Er.24h) 25 mg PO DAILY [facility]; Protocol Last Admin: 10/02/24 07:59 Dose: 25 mg Documented By: KAT Ondansetron HCl (Ondansetron Hcl 4 Mg/2 Ml Vial) 4 mg IVPUSH Q8H PRN PRN Reason: Nausea and Vomiting Polyethyl Glycol/Propylene Glycol (Propylene Glycol/Peg 400 Gel Eye Drops 10ml) 1 drop EYE-BOTH DAILY PRN PRN Reason: Dry Eyes Potassium Chloride (Potassium Chloride Er 20 Meq Tab.Er.Prt) 20 meq PO DAILY [facility] Last Admin: 10/02/24 08:00 Dose: 20 meq Documented By: KAT Sertraline HCl (Sertraline Hcl 50 Mg Tablet) 150 mg PO DAILY [facility] Last Admin: 10/02/24 07:59 Dose: 150 mg Documented By: KAT Sodium Biphosphate/Sodium Phosphate (Sodium Phosphate,[place]-Dibasic 133 Ml Enema) 118 ml [place] DAILY PRN PRN Reason: Constipation Sodium Chloride (0.9 % Sodium Chloride Flush 3 Ml Syringe) 3 ml IVFLUSH QSHIFT [facility] Last Admin: 10/02/24 08:09 Dose: 3 ml Documented By: KAT Spironolactone (Spironolactone 25 Mg Tablet) 50 mg PO DAILY [facility]; Protocol Last Admin: 10/02/24 08:00 Dose: 50 mg Documented By: KAT Valsartan (Valsartan 40 Mg Tablet) 40 mg PO DAILY [facility]; Protocol Last Admin: 10/02/24 08:00 Dose: 40 mg Documented By: KAT Labs 10/02/24 06:57 10/02/24 06:57 Labs: Laboratory Results - last 24 hr 10/02/24 06:57 MCV 93.6 MCH 31.9 MCHC 34.0 RDW 15.1 Plt Count 150 L MPV 12.0 Immature Gran % (Auto) 0.7 H Neut % (Auto) 76.6 H Lymph % (Auto) 9.1 L [place] % (Auto) 11.4 H Eos % (Auto) 1.9 Baso % (Auto) 0.3 Lymph # (Auto) 0.8 L [place] # (Auto) 1.0 Eos # (Auto) 0.2 Baso # (Auto) 0.0 Abs Immat Gran (auto) 0.06 H Absolute Neuts (auto) 7.0 Absolute Nucleated RBC 0.000 Nucleated RBC % (auto) 0.0 Anion Gap 14 Estim Creat Clear Calc 38.8 Estimated GFR 48 Random Glucose 116 H Calcium 8.7 Assessment and Plan (1) CHF (congestive heart failure): Status: Acute (2) Graves disease: Status: Acute Plan Pt is an 84 yo male with a pmhx significant for dementia, HFrEF (40-45% 01/2024), FTT, HTN, paroxysmal a fib on eliquis, graves disesase, vertigo, and stage 1 COPD, who presented to the ED due to worsening AMS and SOB x1 week. acute metabolic encephalopathy likely d/t hypoxia was reported as having O2 sat in 70s, presently better but still with elements of confusion Acute on chronic HFpEF, improving Diuretics on hold d/t rising renal function monitor I/O, Creatine cardiology following clinically euvolemic KISHORE likely from over diuresis, creatine trending up will try gentle fluid weakness- -multiple recent falls, CT head negative PT requested by family paroxysmal a fib, rate controlled. Cardiology advises holding eliquis, risks and benefit discussed with family (daughter and for to continue) graves disease - systane gtts for dry eyes per daughter's request HTN, continue home meds metoprolol , aldactone and valsartan stage 1 COPD, no acute exacerbation - no home meds Gout , allopurinol DNR/DNI, discussed with daughter VTE prophy: eliquis Pt with acute metabolic encephalopathy with acute on chronic CHF exacerbation requiring admission for at least 2 midnights stay for IV diuresis and monitoring. gout allopurinol dvt prophylaxis - eliquis DNR/DNI reason for continued hospitalization:hypokalemia possible dc after seen by cardiology discussed with daughter at bedside Quality Stroke Does the patient have a stroke diagnosis?: No VTE Prior VTE?: No VTE Risk Level:: Medical - moderate - high VTE Device Contraindication: Treatment Not Indicated VTE Drug Contraindication: N/A - Med Ordered
--- NOTE | 2024-10-02 11:10 | MHC.CM.PN ---
Per MD, in ROUNDS, Patient is medically cleared for dc to LTC today. Patient will return to LTC @ [facility] today at 4:30 PM, via [facility]. CM left a detailed message for Daughter/HCP/Dilcia @ [phone], informing her of the dc plan. Last IMM was addressed on 09/30/2024.
[2024-10-02] MEDS: Apixaban 5 MG TABLET PO ×2 (12:35→21:03)
[2024-10-02] MEDS: Lactated Ringers 1,000 ML 50 ML IVCONT (12:35)
--- NOTE | 2024-10-02 14:49 | HO.WOUND ---
Wound Consult: Initial 84yr old?male admitted to [facility] on 09/29/24 - See progress notes and H&P for detailed history.? Wound consult placed for Right posterior thigh and penis rash.? Patient agreeable to assessment and photo documentation.? Purewick in place to suction - suction removed to allow for assessment with purewick remained in place - not full assessment however there was not rash assessed to the penis and scrotum from what was able to be assessed. Direct care team reports not knowing of rash concerns. May continue with Purewick at this time - apparently Condom cath was not successfgul despite patient having the appropriate anatomy for the condom cath. Right posterior thigh assessed - appears as a small round area that was possibly a blister to be resolving - appears to be tissue resurfacing. Recommend for dressing to allow for moist woune healing and protect from friction given it is on the posterior porttion of his thigh which likely has a lot of friciton when he is attepting to get up from chair and out of bed. Right thigh - Posterior Recommendations: 1. Turn and Reposition every 2 hours and as needed for patient comfort.? Use pillows or wedges to support off loading positions. 2. Off Load all bony prominences with use of pillows and heel boots if needed.? Apply Preventative foams where needed. ? 3. Monitor for incontinence and moisture control, use barrier creams when needed for prevention and treatment. 4. Provide adequate and supplemental nutrition.? 5. Continue low air loss mattress. 6. When applicable maintain blood glucose levels per Providers order. Right Posterior Thigh - Apply skin prep to periwound. Cover with foam dressing, change every 3-4 days and PRN. Re-consult wound care Nurse for wound deterioration or wound changes.
--- NOTE | 2024-10-02 14:59 | MHC.CM.PN ---
Per RN, dc for today has been cancelled r/t kidney function issues; transportation has been canceled. Per MD's PN, he has spoken to the Daughter.
[2024-10-03 03:07] VITALS: BP 143/78; PULSE 58; RESP 16; TEMP 36.3; O2SAT 95
[2024-10-03 06:52] VITALS: BP 146/82; PULSE 65; RESP 20; TEMP 36.4; O2SAT 96
[2024-10-03 08:01] VITALS: BP 146/82; PULSE 65
[2024-10-03] MEDS: Metoprolol Succinate ER 25 MG TAB.ER.24H PO (08:01)
[2024-10-03] MEDS: allopurinoL 100 MG TABLET 200 MG PO (08:01)
[2024-10-03] MEDS: Valsartan 40 MG TABLET PO (08:01)
[2024-10-03] MEDS: Spironolactone 25 MG TABLET 50 MG PO (08:01)
[2024-10-03] MEDS: Potassium Chloride ER 20 MEQ TAB.ER.PRT PO (08:01)
[2024-10-03] MEDS: Sertraline HCL 50 MG TABLET 150 MG PO (08:01)
[2024-10-03] MEDS: Apixaban 5 MG TABLET PO (08:02)
[2024-10-03] MEDS: 0.9 % Sodium Chloride Flush 3 ML SYRINGE IVFLUSH (08:02)
[2024-10-03 09:36] LABS: Anion Gap 13 (12-20); Blood Urea Nitrogen 38 mg/dL (9-16); Calcium 8.6 mg/dL (8.4-10.2); Carbon Dioxide 24 mmol/L (22-29); Chloride 108 mmol/L (96-108); Creatinine Clr Calc Pharmacy 41.4; Estimated Glomerular Filt Rate 51; Glucose Random 129 mg/dL (60-115); Sodium 141 mmol/L (135-145)
--- NOTE | 2024-10-03 09:40 | P.DS_ITS ---
DS: Providers Provider Date of Service: 10/03/24 Date of admission: 09/29/24 23:42 Date of discharge: 10/03/24 Primary care physician: Janine Go MD Consults: 09/30/24 10:44 Consult to Wound Care Routine Reason for consultation: R post thigh abrasion. white/main splotchy rash on penis 10/01/24 11:09 Consult to Cardiology Routine Consulting Provider: [facility] Reason for consultation: heart failure DS: Diagnosis Discharge Diagnosis (1) CHF (congestive heart failure): Status: Acute (2) Graves disease: Status: Acute DS: Summary Hospital Course Hospital Course: admission hpi Chief Complaint: AMS pt is an 84 yo male with a pmhx significant for dementia, HFrEF (40-45% 01/2024), FTT, HTN, paroxysmal a fib on eliquis, graves disesase, vertigo, and stage 1 COPD, who presented to the ED due to worsening AMS and SOB x1 week. The pt is lethargic and history is limited as he has a hard time staying awake. When the pt was examined his O2 sats were in the mid 90s without supplemental oxygen. he appeared lethargic, but comfortable. he denies chest pain and states his SOB has improved. he states he was having orthopnea previously. he denies any urinary frequency, urgency, or dysuria. he also reports a recent fall, but denies any hip or leg pain. he denies any concerns currently. Per the ED provider's note, Per the patient's daughter who seems well involved in the patient's care, the patient has had increasing weakness and confusion for the last week.She suspects the patient had a fall at his long-term care facility about a week ago due to bruising noticed mostly to his right arm but also left leg and torso. 1 week ago the patient was complaining of a headache but could not tell her how he hurt his headWhen the daughter discussed with nursing facility, they could not find any documentation that he fell, however several staff members reported to the daughter that they found the patient on the ground Ever since then, the patient has been occasionally leaning to the right while seated, he has not had any known falls since then. And per the daughter he has had increased confusion, the patient is answering questions appropriately in the daughter reports that this is the most alert he has been in the last week. Of note, the facility also found the patient to have an oxygen saturation dropping down you 78% while he was sitting in a wheelchair. He does have a history of COPD but he is not on oxygen at baseline. 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 Was see by cardiology who guided with his therapy. KISHORE likely from over diuresis, creatine trending, given IV fluid and renal function has improved. Repeat on outpatient basis weakness- -multiple recent falls, CT head negative paroxysmal a fib, rate controlled. Cardiology advises holding eliquis, risks and benefit discussed with family (daughter) and at this point she favors continuing with eliquis and more fall precautions graves disease - systane gtts for dry eyes per daughter's request HTN, continue home meds metoprolol , aldactone and valsartan stage 1 COPD, no acute exacerbation - no home meds Gout , allopurinol Time Attestation Discharge Coordination Time (in mins): 45 Quality: Safe Use of Opioids Does Pt have an Active Cancer Diagnosis on the Problem List?: No Quality: Stroke Does the patient have a stroke diagnosis?: No Physical Exam Vital Signs: Vital Signs: Last Vital Signs Temp 97.6 F 10/03/24 06:52 Pulse 65 10/03/24 08:01 Resp 20 10/03/24 06:52 BP 146/82 H 10/03/24 08:01 Pulse Ox 96 10/03/24 06:52 O2 Del Method Room Air 10/03/24 06:52 O2 Flow Rate 2 09/30/24 23:19 Oxygen Flow Rate 2 09/29/24 18:49 BMI result Body Mass Index 28.8 DS: Data Data Completed and Pending Completed studies during hospitalization [Text1]: Procedures Assistance with Respiratory Ventilation, Less than 24 Consecutive Hours, Continuous Positive Airway Pressure (03/01/23) Drainage of Pericardial Cavity with Drainage Device, Open Approach (12/22/23) Drainage of Right Pleural Cavity, Percutaneous Approach (01/20/24) Excision of Pericardium, Open Approach, Diagnostic (12/22/23) Labs on day of discharge: Laboratory Results - last 24 hr 10/03/24 08:57 Sodium 141 Potassium 4.0 Chloride 108 Carbon Dioxide 24 Anion Gap 13 BUN 38 H Creatinine 1.32 Estim Creat Clear Calc 41.4 Estimated GFR 51 Random Glucose 129 H Calcium 8.6 Discharge Plan Discharge Anticipated Discharge Date/Time: 10/03/24 13:39 Patient Disposition: Xfer [facility] Discharge Diagnosis: Heart failure exacerbation Referrals: [facility] [Outside] - 1 Week Janine Go MD [Primary Care Provider] - 1 Week Discharge Medications: New furosemide 20 mg Tablet 20 mg PO DAILY Qty: 30 0RF Protocol: Hold for SBP< HOLD for SBP < : 90 Continued sertraline 100 mg tablet 150 mg PO DAILY Eliquis 5 mg Tablet 5 mg PO BID Qty: 60 0RF acetaminophen 325 mg Tablet 650 mg PO Q4H PRN (Reason: Pain/Fever) metoprolol succinate 25 mg Tablet Extended Release 24 Hr 25 mg PO DAILY Qty: 0 0RF Protocol: Hold for SBP/HR < HOLD for SBP < : 90 HOLD for HR < : 60 potassium chloride 20 mEq tablet extended release 20 meq PO DAILY Qty: 90 0RF ipratropium-albuterol 0.5 mg-3 mg(2.5 mg base)/3 mL solution for nebulization 3 ml INHALATION Q6H PRN (Reason: Shortness Of Breath Or Wheezing) spironolactone 25 mg tablet 50 mg PO DAILY allopurinol 100 mg tablet 200 mg PO DAILY guaifenesin [Rain-Tussin] 100 mg/5 mL Liquid 200 mg PO Q6H PRN (Reason: Cough) magnesium hydroxide [Milk of Magnesia] 400 mg/5 mL Suspension 30 ml PO DAILY PRN (Reason: Constipation) bisacodyl 10 mg Suppository 10 mg [place] DAILY PRN (Reason: Constipation) Rx Instructions: If no results from [facility] sodium phosphates 19-7 gram/118 mL Enema 118 ml [place] DAILY PRN (Reason: Constipation) Rx Instructions: If no result from Suppository. calcium carbonate 500 mg calcium (1,250 mg) Tablet,Chewable 1,000 mg PO DAILY PRN (Reason: Dyspepsia) dextran 70-hypromellose (PF) 0.1-0.3 % Dropperette 1 drp OPHTHALMIC (EYE) QID dextran 70-hypromellose 0.1-0.3 % Drops 1 drp OPHTHALMIC (EYE) TID PRN (Reason: Dry Eye(S)) valsartan 40 mg tablet 40 mg PO DAILY Protocol: Hold for SBP< HOLD for SBP < : 90 Discharge Orders: Discharge Order (Routine); Ordered 10/03/24 Ordered By: Jairo Mendez Diet: Low salt diet Activity on Discharge: As tolerated Stand Alone Forms: Patient Portal Discharge page Print Language: German Care Plan Goals: recovery from heart failure Health Concerns: chf, afib Plan of Treatment: continue taking your medications as before, follow up with your doctor in a week check bmp in 2 to 3 days Assessment: see above
[2024-10-03 10:32] VITALS: BP 146/82
[2024-10-03] MEDS: Furosemide 20 MG TABLET PO (10:32)
--- NOTE | 2024-10-03 10:32 | MHC.CM.PN ---
Per MD in ROUNDS, Patient has been medically cleared for dc to LTC today. Patient will return to LTC @ [facility] today at 2PM, via [facility]. CM spoke with Daughter/HCP/Dilcia @ [phone] and she is in agreement with the dc plan; IMM was addressed.
[2024-10-03 10:52] VITALS: BP 109/62; PULSE 65; RESP 20; TEMP 36.4; O2SAT 95
[2024-10-03] MEDS: Artificial Tears 15 ML DROPS 1 DROP EYE-BOTH (11:02)
== END 2024-10-03 14:29 | DRG 291 ==
LOC: HO.ED 23:31 → HO.EDOVER 09-30 00:52 → HO.IMC 09-30 07:32
PROVIDERS: Admitting Provider Physician Assistant; Emergency Provider Emergency Medicine; PCP Internal Medicine; Visit Provider Internal Medicine
DX: I11.0 Hypertensive heart disease with heart failure (principal); G93.41 Metabolic encephalopathy; I50.23 Acute on chronic systolic (congestive) heart failure; F05 Delirium due to known physiological condition; N17.9 Acute kidney failure, unspecified; I48.0 Paroxysmal atrial fibrillation; J44.9 Chronic obstructive pulmonary disease, unspecified; M10.9 Gout, unspecified; Z66 Do not resuscitate; R29.6 Repeated falls; I42.9 Cardiomyopathy, unspecified; E05.00 Thyrotoxicosis with diffuse goiter without thyrotoxic crisis or storm; Z20.822 Contact with and (suspected) exposure to COVID-19; Z87.891 Personal history of nicotine dependence; Z79.01 Long term (current) use of anticoagulants; Z79.899 Other long term (current) drug therapy
CPT/HCPCS: 0241U; 36415; 70450; 71045; 71250; 74176; 80048; 80053; 81003; 82803; 83880; 84484; 85025; 93005; 93306; 97162; 99285; J1938; J7120; Q9957

== ENCOUNTER → 2024-09-29 18:55 | Outpatient (BNV) | payer MEDICARE, SELFPAY | PROVIDERS: Admitting Provider Physician Assistant; Emergency Provider Emergency Medicine; PCP Internal Medicine; Visit Provider Internal Medicine Cardiovascular Disease | DX: I48.91 Unspecified atrial fibrillation (principal); I49.3 Ventricular premature depolarization; I51.7 Cardiomegaly | CPT/HCPCS: 93010 ==

== ENCOUNTER → 2024-09-29 18:56 | Outpatient (BNV) | payer MEDICARE, SELFPAY | PROVIDERS: Visit Provider Radiology Diagnostic Radiology | DX: R10.9 Unspecified abdominal pain (principal); I51.7 Cardiomegaly; S09.90XA Unspecified injury of head, initial encounter | CPT/HCPCS: 70450; 71250; 74176 ==

== ENCOUNTER 2024-09-29 23:42 | Outpatient (BNV) | payer MEDICARE, SELFPAY | END 2024-09-30 07:00 | PROVIDERS: Admitting Provider Physician Assistant; Emergency Provider Emergency Medicine; PCP Internal Medicine; Visit Provider Internal Medicine Cardiovascular Disease | DX: I50.23 Acute on chronic systolic (congestive) heart failure (principal); I27.20 Pulmonary hypertension, unspecified; I35.1 Nonrheumatic aortic (valve) insufficiency; I34.0 Nonrheumatic mitral (valve) insufficiency | CPT/HCPCS: 93306 ==

== ENCOUNTER → 2024-09-29 23:42 | Outpatient (BNV) | payer MEDICARE, SELFPAY | PROVIDERS: Admitting Provider Physician Assistant; Emergency Provider Emergency Medicine; PCP Internal Medicine; Visit Provider Internal Medicine Cardiovascular Disease | DX: I50.23 Acute on chronic systolic (congestive) heart failure (principal); I34.0 Nonrheumatic mitral (valve) insufficiency | CPT/HCPCS: 99233 ==

== ENCOUNTER → 2024-09-29 23:42 | Outpatient (BNV) | payer MEDICARE, SELFPAY | PROVIDERS: Admitting Provider Physician Assistant; Emergency Provider Emergency Medicine; Visit Provider Physician Assistant | DX: I50.9 Heart failure, unspecified (principal); E05.00 Thyrotoxicosis with diffuse goiter without thyrotoxic crisis or storm | CPT/HCPCS: 99223; 99232; 99233; 99239 ==